=== PATIENT | male | born 1935 | race Caucasian/White ===

== ENCOUNTER 2022-10-23 11:05 | Emergency (ER) | payer MEDICARE, OTHER, SELFPAY ==
[2022-10-23] VITALS (36 sets, daily range): BP systolic 112–146; BP diastolic 53–89; PULSE 109; RESP 24; TEMP 36.6; O2SAT 89–95; BMI 25.0
--- NOTE | 2022-10-23 11:36 | ED_ITS ---
HPI - Weakness General Chief complaint: Weakness Stated complaint: DIARRHEA/WEAKNESS/NAUSEA/RASH ON ABDOMEN Time Seen by Provider: 10/23/22 11:36 Source: patient Mode of arrival: Wheelchair Limitations: no limitations History of Present Illness HPI Narrative: Assessment emergency department complaining of nausea, vomiting, diarrhea. He states he has been sick for about a week. He has not been able to keep anything down. His had 2 bowel movements which are loose stool in the last 24 hours. He's vomited over 7 times. Patient denies any hematemesis, melena, hematochezia. He states he thought he had the flu so he has been taking Pepto-Bismol, and Imodium. He states he has also been feeling generally weak has myalgias and chills cough which is productive of clear sputum and feels short of breath. Patient also states he has developed a red rash over the abdomen. The rash is not related to any of the medications that he has taken as he had the rash before she took any of his medications. Patient states he takes 2 Tylenol extra strength 2 times a day and he has not taking any Tylenol in the last 2 days. 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 He states he has seen a lumber press operator Dr. Casillas 5 yrs ago. Patient denies any chest pain, denies any abdominal pain. He denies any flank pain, hematuria, dysuria. He denies any fall or trauma. He denies any headache. He denies any sore throat or difficulty swallowing. Related Data Home Medications Medication Instructions Recorded Confirmed atorvastatin 20 mg tablet 20 mg PO DAILY 10/23/22 10/23/22 cetirizine 10 mg tablet 10 mg PO DAILY 10/23/22 10/23/22 furosemide 40 mg tablet 40 mg PO DAILY 10/23/22 10/23/22 metoprolol succinate 50 mg 50 mg PO DAILY 10/23/22 10/23/22 tablet,extended release 24 hr rtdnbrky-vbawbtfdh-kyyhmammx 3.5 4 drp otic (ear) QID 10/23/22 10/23/22 mg-10,000 unit/mL-1 % ear drops,susp ondansetron HCl 4 mg tablet 4 mg PO Q8H PRN nausea and vomiting 10/23/22 10/23/22 potassium chloride 10 mEq 10 meq PO DAILY 10/23/22 10/23/22 tablet,extended release Previous Rx's Medication Instructions Recorded hydrocortisone 2.5 % topical 1 applic topical BID PRN rash #20 10/23/22 ointment grams Allergies Allergy/AdvReac Type Severity Reaction Status Date / Time lidocaine AdvReac Unknown Verified 10/23/22 11:46 tramadol [From Ultram] AdvReac Unknown Verified 10/23/22 11:46 novacaine AdvReac Unknown Uncoded 10/23/22 11:46 Review of Systems ROS Status of ROS 10 or more systems reviewed and unremarkable except as noted in history and below [facility] Social History Smoking status: Former smoker Exam Narrative Exam Narrative: Nurses notes and vital signs reviewed and patient is not hypoxic. General: Nontoxic, Elderly, chronically ill, and in no apparent distress. Skin: Warm, dry, Mild pallor noted. Erythematous patches over the anterior abdomen. They're blanching, no central pallor noted. Head: Normocephalic, atraumatic. Neck: Supple, non-tender. Eye: Pupils are equal, round and EOMI. No scleral icterus. Ears, Nose, Mouth, and Throat: TM clear, no posterior oropharynx erythema or nasal mucosal hypertrophy, uvula is mid-line Oral mucosa is dry Cardiovascular: tachycardia without murmur, gallop or rub. Respiratory: No accessory muscle use or respiratory distress. Lungs occasional bilateral rhonchi Chest Wall: no tenderness Back: No midline thoracic or lumbar vertebral tenderness. No CVA tenderness Musculoskeletal: normal ROM, no calf or popliteal tenderness, no lower extremity edema/swelling GI: Abdomen is soft, non-distended. Normal bowel sounds. No tenderness to palpation. No rebound, guarding, or rigidity noted. Neurological: A&O x4. No cranial nerve dysfunction observed. No truncal radha vivian. Moves all extremities. Psychiatric: Cooperative and interactive. Constitutional Vital Signs, click to edit/add: Last Vital Signs Temp 98 F 10/23/22 11:18 Pulse 109 H 10/23/22 11:18 Resp 24 10/23/22 11:18 BP 129/68 10/23/22 16:31 Pulse Ox 93 L 10/23/22 16:31 O2 Del Method Room Air 10/23/22 11:18 Course Vital Signs Vital signs: Vital Signs Blood Pressure 131/89 10/23/22 11:17 Pulse Oximetry 92 L 10/23/22 11:17 Temperature 98 F 10/23/22 11:18 Pulse Rate 109 H 10/23/22 11:18 Respiratory Rate 24 10/23/22 11:18 Blood Pressure 129/68 10/23/22 16:31 Pulse Oximetry 93 L 10/23/22 16:31 Oxygen Delivery Method Room Air 10/23/22 11:18 MDM - Weakness MDM Narrative Medical decision making narrative: Patient was given IV fluids, and Zofran. Labs studies were done. He is not to have leukocytosis with blasts present. Smear was sent for pathology. This corresponds with the patient's CT scan findings of prominent periaortic and mesenteric lymphadenopathy. Patient's magnesium was replaced. The patient's lactic acid improved after IV fluids. Patient felt better he has not vomited during his entire stay and he is not able to have a bowel movement. CT scan showed some enhancement surrounding the extrabiliary duct. This was discussed with Dr. hendricks who advised the patient should be discussed with the lumber press operator for definitive treatment.The patient's old alkaline phosphatase was 300. The patient was discussed with Dr. Julian lumber press operator the count includes the [facility]. He stated that the patient does not need an emergent procedure or ERCP today. Stated that the patient is not having any pain, and he came in for nausea vomiting and diarrhea and dehydration. He advice once we treat that the patient does not need to be hospitalized unless we wanted to just keep him overnight to trend his liver function tests tomorrow. At this time the patient is requesting discharge she feels better and wants to go home. I discussed the patient with his primary care doctor who is on-call and will follow through with the results. I did order a CBC and a CMP to be done tomorrow for a recheck. They will bring the patient back to the emergency department if at any time she develops fever, abdominal pain, uncontrolled vomiting, or if they have any other problems or concerns. Patient will be going home with his and his son who are taking care of him. Patient was also given a hat for a stool sample as he was not able to give was 1 in the emergency department.pt was given the option to be transferred to [facility] to be monitored overnight to have the blood work done there and if there is any abnormalities he is they're already or they will discharge him based on what his labs looked like tomorrow and he feels that his best for him to go home. Patient will be discharged home with a steroid cream for his rash that he is advised that there is a high possibility that we are dealing with a malignancy. The patient has remained hemodynamically stable. No additional indication for emergent studies at this time. I answered all questions. Discussed discharge instructions including standard anticipatory guidance and what should prompt a return to the emergency department, including if they get worse are not getting better or develops any new or concerning symptoms. I've given them specific time frame in which to follow-up, and who to follow-up with. The patient demonstrates understanding. Patient is nontoxic and stable for discharge with outpatient follow-up. This note was created with the assistance of a speech recognition program. Although the intention is to generate documents that actually reflects the content of the visit, no guarantees can be provided that every mistake has been identified and corrected by editing. Differential Diagnosis Differential diagnosis: Likely dehydration Medical Records Attestation: I reviewed the patient's medical records. Lab Data Attestation: I reviewed the patient's lab results. Labs: Lab Results 10/23/22 10/23/22 10/23/22 Range/Units 11:30 15:26 16:43 WBC 19.6 H (4.0-11.0) 10^3/uL RBC 5.26 (4.70-6.10) 10^6/uL Hgb 15.3 (14.0-18.0) g/dL Hct 45.3 (42.0-54.0) % MCV 86.1 (80.0-94.0) fL MCH 29.1 (25.9-34.0) pg MCHC 33.8 (29.9-35.2) g/dL RDW 14.5 (11.0-15.0) % Plt Count 282 (150-450) 10^3/uL MPV 11.1 (9.5-13.5) fL Seg Neuts % (Manual) 71.0 Lymphocytes % (Manual) 10.0 L (20.5-60.0) % Monocytes % (Manual) 10.0 (1.7-12.0) % Eosinophils % (Manual) 5.0 (0.9-7.0) % Basophils % (Manual) 0.0 L (0.2-2.0) % Blast Cells % (Manual) 4.0 Neutrophils # (Manual) 13.91 H (1.4-6.5) 10^3/uL Lymphocytes # (Manual) 1.96 (1.20-3.80) 10^3/uL Monocytes # (Manual) 1.96 H (0.30-0.80) 10^3/uL Eosinophils # (Manual) 0.98 H (0.00-0.70) 10^3/uL Basophils # (Manual) 0.00 (0.00-0.10) 10^3/uL Blast Cells # 0.78 PT (9.0-11.6) sec INR APTT (22.3-36.2) sec Sodium 136 (136-145) mmol/L Potassium 3.5 (3.5-5.1) mmol/L Chloride 98 (98-107) mmol/L Carbon Dioxide 23.6 (21.0-32.0) mmol/L Anion Gap 17.9 BUN 26.0 H (7.0-18.0) mg/dL Creatinine 1.86 H (0.70-1.30) mg/dL Est GFR ( Amer) 42 L (>=60) Est GFR (Non-Af Amer) 35 L (>=60) BUN/Creatinine Ratio 14.0 Glucose 93 (74-106) mg/dL Lactate 2.6 H* 1.3 (0.4-2.0) mmol/L Calcium 9.3 (8.5-10.1) mg/dL Magnesium 1.6 L (1.8-2.4) mg/dL Total Bilirubin 2.4 H (0.2-1.0) mg/dL AST 113 H (15-37) U/L ALT 348 H (16-63) U/L Alkaline Phosphatase 538 H (46-116) U/L Troponin I High Sens 30.2 (4.0-76.1) pg/mL Total Protein 8.1 (6.4-8.2) g/dL Albumin 3.1 L (3.4-5.0) g/dL Globulin 5.0 g/dL Albumin/Globulin Ratio 0.6 Lipase 206.0 (73.0-393.0) U/L Urine Color Dk. yellow (YELLOW) Urine Clarity Clear (CLEAR) Urine pH 5.5 (5.0-9.0) Ur Specific [place] <=1.005 A (1.005-1.025) Urine Protein 100 A (NEG/TRACE) mg/dL Urine Glucose (UA) Negative (NEGATIVE) mg/dL Urine Ketones 15 A (NEGATIVE) mg/dL Urine Occult Blood Small A (NEGATIVE) Urine Nitrite Negative (NEGATIVE) Urine Bilirubin Moderate A (NEGATIVE) Urine Urobilinogen 1.0 (0.2-1.0) EU/dL Ur Leukocyte Esterase Negative (NEGATIVE) Urine RBC 2-5 A (0-2) #/HPF Urine WBC 2-5 A (NONE SEEN) #/HPF Ur Squamous Epith Cells Rare (NONE/RARE) #/LPF Urine Crystals None seen (None Seen) #/HPF Urine Bacteria Trace A (NONE SEEN) #/HPF Urine Casts Seen A (NONE SEEN) #/LPF Hyaline Casts Rare Urine Mucus None seen (NONE SEEN) Ur Culture Indicated? No 10/23/22 Range/Units 18:09 WBC (4.0-11.0) 10^3/uL RBC (4.70-6.10) 10^6/uL Hgb (14.0-18.0) g/dL Hct (42.0-54.0) % MCV (80.0-94.0) fL MCH (25.9-34.0) pg MCHC (29.9-35.2) g/dL RDW (11.0-15.0) % Plt Count (150-450) 10^3/uL MPV (9.5-13.5) fL Seg Neuts % (Manual) Lymphocytes % (Manual) (20.5-60.0) % Monocytes % (Manual) (1.7-12.0) % Eosinophils % (Manual) (0.9-7.0) % Basophils % (Manual) (0.2-2.0) % Blast Cells % (Manual) Neutrophils # (Manual) (1.4-6.5) 10^3/uL Lymphocytes # (Manual) (1.20-3.80) 10^3/uL Monocytes # (Manual) (0.30-0.80) 10^3/uL Eosinophils # (Manual) (0.00-0.70) 10^3/uL Basophils # (Manual) (0.00-0.10) 10^3/uL Blast Cells # PT 13.7 H (9.0-11.6) sec INR 1.31 APTT 32.1 (22.3-36.2) sec Sodium (136-145) mmol/L Potassium (3.5-5.1) mmol/L Chloride (98-107) mmol/L Carbon Dioxide (21.0-32.0) mmol/L Anion Gap BUN (7.0-18.0) mg/dL Creatinine (0.70-1.30) mg/dL Est GFR ( Amer) (>=60) Est GFR (Non-Af Amer) (>=60) BUN/Creatinine Ratio Glucose (74-106) mg/dL Lactate (0.4-2.0) mmol/L Calcium (8.5-10.1) mg/dL Magnesium (1.8-2.4) mg/dL Total Bilirubin (0.2-1.0) mg/dL AST (15-37) U/L ALT (16-63) U/L Alkaline Phosphatase (46-116) U/L Troponin I High Sens (4.0-76.1) pg/mL Total Protein (6.4-8.2) g/dL Albumin (3.4-5.0) g/dL Globulin g/dL Albumin/Globulin Ratio Lipase (73.0-393.0) U/L Urine Color (YELLOW) Urine Clarity (CLEAR) Urine pH (5.0-9.0) Ur Specific [place] (1.005-1.025) Urine Protein (NEG/TRACE) mg/dL Urine Glucose (UA) (NEGATIVE) mg/dL Urine Ketones (NEGATIVE) mg/dL Urine Occult Blood (NEGATIVE) Urine Nitrite (NEGATIVE) Urine Bilirubin (NEGATIVE) Urine Urobilinogen (0.2-1.0) EU/dL Ur Leukocyte Esterase (NEGATIVE) Urine RBC (0-2) #/HPF Urine WBC (NONE SEEN) #/HPF Ur Squamous Epith Cells (NONE/RARE) #/LPF Urine Crystals (None Seen) #/HPF Urine Bacteria (NONE SEEN) #/HPF Urine Casts (NONE SEEN) #/LPF Hyaline Casts Urine Mucus (NONE SEEN) Ur Culture Indicated? Discharge Plan Discharge Chief Complaint: Weakness Clinical Impression: Elevated liver function tests, Dermatitis, Leucocytosis, Nausea & vomiting, Dehydration Patient Disposition: Home, Self-Care Time of Disposition Decision: 18:43 Condition: Good Mode of Transportation: Private Vehicle Prescriptions / Home Meds: New hydrocortisone 2.5 % ointment 1 applic topical BID PRN (Reason: rash) Qty: 20 0RF No Action atorvastatin 20 mg tablet 20 mg PO DAILY cetirizine 10 mg tablet 10 mg PO DAILY furosemide 40 mg tablet 40 mg PO DAILY metoprolol succinate 50 mg tablet extended release 24 hr 50 mg PO DAILY yrnllfxi-vhobyzkvk-EV 3.5-10,000-1 mg/mL-unit/mL-% drops,suspension 4 drp OTIC (EAR) QID ondansetron HCl 4 mg tablet 4 mg PO Q8H PRN (Reason: nausea and vomiting) potassium chloride 10 mEq tablet extended release 10 meq PO DAILY Instructions: Acute Nausea and Vomiting (DC), Acute Diarrhea (ED), Abdominal Pain (ED) Additional Instructions: Return tomorrow to get the lab studies done as an outpatient as discussed. Follow up with Dr. Monty Bautista in the morning. Follow up with Dr. Rhodes lumber press operator as discussed. Return to the emergency department any time for concerns as discussed. Stand Alone Forms: Portal Instructions Referrals: DARREN BAUTISTA [Primary Care Provider] - 1 week Discharge Date/Time: 10/23/22 18:45
[2022-10-23 12:00] LABS: Hematocrit 45.3 % (42.0-54.0); Hemoglobin 15.3 g/dL (14.0-18.0); Mean Corpuscular HGB Conc 33.8 g/dL (29.9-35.2); Mean Corpuscular Hemoglobin 29.1 pg (25.9-34.0); Mean Corpuscular Volume 86.1 fL (80.0-94.0); Mean Platelet Volume 11.1 fL (9.5-13.5); Platelet Count 282 10^3/uL (150-450); Red Blood Count 5.26 10^6/uL (4.70-6.10); Red Cell Distribution Width 14.5 % (11.0-15.0); White Blood Count 19.6 10^3/uL (4.0-11.0)
[2022-10-23] MEDS: 0.9 % SODIUM CHLORIDE 1,000 ML 999 ML IV (12:03)
[2022-10-23 12:19] LABS: Alanine Aminotransferase 348 U/L (16-63); Albumin Globulin Ratio 0.6; Albumin Level 3.1 g/dL (3.4-5.0); Alkaline Phosphatase 538 U/L (46-116); Anion Gap 17.9; Aspartate Amino Transferase 113 U/L (15-37); Bilirubin Total 2.4 mg/dL (0.2-1.0); Calcium 9.3 mg/dL (8.5-10.1); Carbon Dioxide 23.6 mmol/L (21.0-32.0); Chloride 98 mmol/L (98-107); Estimated GFR (African America 42 (>=60); Estimated GFR (Non-African Ame 35 (>=60); Glucose 93 mg/dL (74-106); Magnesium 1.6 mg/dL (1.8-2.4); Potassium 3.5 mmol/L (3.5-5.1); Sodium 136 mmol/L (136-145); Total Protein 8.1 g/dL (6.4-8.2); Troponin I High Sensitivity 30.2 pg/mL (4.0-76.1)
[2022-10-23 12:22] LABS: Lactate/Lactic Acid 2.6 mmol/L (0.4-2.0)
--- NOTE | 2022-10-23 12:25 | US_ITS ---
[facility] [place] [id number] Patient Name: DC LUO MRN: [id number] date: 1935 Sex: M Assigned Patient Location: ER Current Patient Location: ER Accession/Order Number: [id number] Exam Date: 10/23/2022 13:40 Report Date: 10/23/2022 14:31 At the request of: ANGELES QUIGLEY Procedure: US right upper quadrant US right upper quadrant, 10/23/2022 1:40 PM EDT INDICATION:Right upper quadrant pain, vomiting, rash. COMPARISON: Noncontrast CT scan of the abdomen and pelvis 01/08/2019, right upper quadrant ultrasound 11/19/2018 TECHNIQUE: Multi-planar real-time ultrasonography of the upper abdomen (right upper quadrant) using grayscale imaging, supplemented by color, power, and spectral Doppler as needed. FINDINGS: The visualized pancreatic head neck and body are unremarkable. The pancreatic tail is obscured by overlying bowel gas. No pancreatic ductal dilatation. The liver is 14.4 cmwith coarse increased echotexture. Areas of macronodular contour of the liver. No intrahepatic ductal dilatation. Common bile duct 6.0mm The gallbladder has been surgically removed. Negative sonographic Toribio's sign. The main portal vein is antegrade with normal velocity low resistance venous spectral tracing. Right kidney: 11.1 x 6.6 x 5.6 cm. No hydronephrosis. Normal color Doppler to the right kidney. No ascites. US/US right upper quadrant IMPRESSION: 1. No acute findings. 2. Areas of macro nodular contour of the liver can be seen with prior trauma or cirrhosis. Heterogeneous echotexture of the liver. Differential considerations include hepatic steatosis, fibrosis. Electronically authenticated by: MACEY AMADO Date: 10/23/2022 14:31
[2022-10-23 12:35] LABS: Blast Absolute Manual 0.78; Eosinophils Absolute Manual 0.98 10^3/uL (0.00-0.70); Lymphocytes Absolute Manual 1.96 10^3/uL (1.20-3.80); Monocytes Absolute Manual 1.96 10^3/uL (0.30-0.80); Segmented Neut Absolute Manual 13.91 10^3/uL (1.4-6.5)
--- NOTE | 2022-10-23 12:47 | CT_ITS ---
[address] [address] Patient Name: DC LUO MRN: [id number] date: 1935 Sex: M Assigned Patient Location: ER Current Patient Location: ER Accession/Order Number: [id number] Exam Date: 10/23/2022 14:14 Report Date: 10/23/2022 15:00 At the request of: ANGELES QUIGLEY Procedure: CT abdomen pelvis w con EXAM: CT abdomen pelvis w con; [id number] REASON FOR EXAM: abd pain, n/vnd TECHNIQUE: Helical CT images of the abdomen and pelvis were obtained after the administration of IV contrast. Multiplanar reformats were generated at the scanner. Dose reduction technique used: Automated exposure control and/or adjustment of the mA and/or kV according to patient size and/or use of iterative reconstruction technique. COMPARISON: Correlated with same day right upper quadrant ultrasound and CT abdomen/pelvis 01/08/2019. FINDINGS: Visualized Chest: Mild bibasilar atelectasis. Small hiatal hernia containing less than 10% of the stomach. Abdomen: Liver: Within normal limits. Gallbladder: Resected. Bile Ducts: Mild fat stranding and mucosal enhancement surrounding the extra hepatic biliary duct. Mild intrahepatic biliary ductal dilatation. No significant dilatation of the extra hepatic biliary duct. Pancreas: No mass, ductal dilatation, or inflammatory changes. Spleen: There are a few benign granulomatous calcifications present. There are 2 adjacent splenules. Adrenals: No nodules. Kidneys: -No stones or hydronephrosis. -No mass. Vascular: No aortic aneurysm. Lymph Nodes: -Mildly prominent periaortic lymph nodes just caudal to the level of the SMA with the largest measuring up to 15 x 8 mm (series 3 image 57), previously 10 x 5 mm on 01/08/2019. -Mildly prominent right mesenteric lymph nodes are mildly increased in size. For example, right mesenteric lymph node measuring 17 x 8 mm (series 3 image 60), not measurable on the prior exam. -Mildly enlarged aortocaval lymph node measuring 4.2 x 1.1 cm (series 3 image 42), previously 2.8 x 0.6 cm (series 3 image 42, 01/08/2019). Abdominal Wall: Right inguinal hernia repair noted. Pelvis: No mass or adenopathy. Bowel/Peritoneal Cavity/Mesentery: -Moderate colonic diverticulosis without evidence of acute diverticulitis. -No bowel obstruction or significant ileus. -No acute inflammatory changes. -No free air or free fluid. Musculoskeletal: No acute fracture or suspicious osseous lesion. Mild retrolisthesis of L5 on S1. CT/CT abdomen pelvis w con IMPRESSION: 1. Nonspecific mild fat stranding in the kristine hepatis which appears to be centered about the extrahepatic bile duct. Differential includes cholangitis or reactive changes from adjacent process such as duodenitis. 2. Mild upper abdominal predominant adenopathy is new compared with 01/08/2019. This nonspecific and could be reactive versus metastatic or early lymphoproliferative. 3. Mild intrahepatic biliary ductal dilatation could be related to the extrahepatic biliary inflammatory changes though could be within expected limits given the patient's age and postcholecystectomy. Electronically authenticated by: ELBA ROCK Date: 10/23/2022 15:00
[2022-10-23] MEDS: 0.9 % SODIUM CHLORIDE 1,000 ML 1000 ML IV (15:27)
[2022-10-23] MEDS: MAGNESIUM SULFATE IN WATER 2 GM/50 ML PREMIX IV (15:38)
[2022-10-23 15:47] LABS: Lactate/Lactic Acid 1.3 mmol/L (0.4-2.0)
[2022-10-23 17:27] LABS: Bilirubin Urine MODERATE (NEGATIVE); Blood Urine SMALL (NEGATIVE); Clarity Urine CLEAR (CLEAR); Color Urine DK. YELLOW (YELLOW); Glucose Urine UA NEGATIVE (NEGATIVE); Ketones Urine 15 mg/dL (NEGATIVE); Leukocyte Esterase Urine NEGATIVE (NEGATIVE); Nitrite Urine NEGATIVE (NEGATIVE); Protein Urine 100 mg/dL (NEG/TRACE); Specific Gravity Urine <=1.005 (1.005-1.025); pH Urine 5.5 (5.0-9.0)
[2022-10-23 17:28] LABS: Urine Microscopic Indicated YES
[2022-10-23 17:50] LABS: Mucus Urine NONE SEEN (NONE SEEN)
[2022-10-23 17:51] LABS: Bacteria Urine TRACE #/HPF (NONE SEEN); Cast Seen? SEEN #/LPF (NONE SEEN); Crystals Seen? None Seen #/HPF (None Seen); Hyaline Casts Urine RARE; Squamous Epithelial Cell Urine RARE #/LPF (NONE/RARE); Urine Culture Indicated NO
[2022-10-23 18:32] LABS: INR 1.31; Partial Thromboplastin Time 32.1 sec (22.3-36.2); Prothrombin Time 13.7 sec (9.0-11.6)
[2022-10-23 19:03] LABS: Acetaminophen <2.0 ug/mL (10.0-30.0)
[2022-10-25 07:08] LABS: HBsAg Screen Negative (Negative); HCV Ab Non Reactive (Non Reactive); Hep A Ab, IgM Negative (Negative); Hep B Core Ab, IgM Negative (Negative)
== END 2022-10-23 18:45 | disposition home or self-care (01) ==
PROVIDERS: Emergency Provider Emergency Medicine; PCP Internal Medicine
DX: E86.0 Dehydration (principal); R11.2 Nausea with vomiting, unspecified; Z87.891 Personal history of nicotine dependence; R79.89 Other specified abnormal findings of blood chemistry; L30.9 Dermatitis, unspecified; D72.829 Elevated white blood cell count, unspecified
CPT/HCPCS: 36415; 74177; 76705; 80053; 80074; 80329; 81001; 81003; 83605; 83690; 83735; 84484; 85027; 85610; 85730; 87507; 96361; 96374; 99285; Q9966

== ENCOUNTER 2022-10-24 16:05 | Inpatient (IN) | payer MEDICARE, OTHER, SELFPAY ==
[2022-10-24] VITALS (31 sets, daily range): BP systolic 112–141; BP diastolic 64–82; PULSE 101; RESP 18; TEMP 36.9–37.2; O2SAT 88–100; BMI 29.9; BMI 25.3
--- NOTE | 2022-10-24 16:23 | ED.WEAKNESS1 ---
HPI - Weakness General Chief complaint: Weakness Stated complaint: General weakness Time Seen by Provider: 10/24/22 16:23 Source: patient Mode of arrival: ambulance Limitations: no limitations History of Present Illness HPI Narrative: Patient presents to emergency department complaining of weakness. Patient has been treating himself for the flu At home for approximately one week. He states she's had a lot of vomiting and diarrhea, Myalgias, chills, and weakness. pt was seen and evaluated by me yesterday in the emergency department. Patient was given IV fluids, and Zofran. Labs studies were done. He is not to have leukocytosis with blasts present. Smear was sent for pathology. This corresponds with the patient's CT scan findings of prominent periaortic and mesenteric lymphadenopathy. Patient's magnesium was replaced. The patient's lactic acid improved after IV fluids. Patient felt better he has not vomited during his entire stay and he is not able to have a bowel movement. CT scan showed some enhancement surrounding the extrabiliary duct. This was discussed with Dr. Bueno who advised the patient should be discussed with a waterproofer for definitive treatment. The patient's old alkaline phosphatase was 300. There was concern for a partial biliary obstruction secondary to mass? The patient was discussed with Dr. Urbina waterproofer at [facility]. He stated that the patient does not need an emergent procedure or ERCP today. Stated that the patient is not having any pain, and he came in for nausea vomiting and diarrhea and dehydration. He advice once we treat that the patient does not need to be hospitalized unless we wanted to just keep him overnight to trend his liver function tests tomorrow. The patient felt better he did not want to be transferred anywhere and stated that he would go home and will have the testing normal. I discussed this with his primary care doctor was advised to will follow up with the patient tomorrow. She states he has not been able to have a bowel movement yet. He is still feeling nauseated but has not been vomiting however he feels extremely weak to the point where he was not able to come to have the blood work done and EMS had to be called to their house to transport him here for reevaluation. Patient denies any chest pain, or shortness of breath. He denies any abdominal pain. He denies any hematuria, dysuria. He denies any fever, or chills. MD Complaint: Reports generalized weakness Related Data Home Medications Medication Instructions Recorded Confirmed atorvastatin 20 mg tablet 20 mg PO DAILY 10/23/22 10/23/22 cetirizine 10 mg tablet 10 mg PO DAILY 10/23/22 10/23/22 furosemide 40 mg tablet 40 mg PO DAILY 10/23/22 10/23/22 metoprolol succinate 50 mg 50 mg PO DAILY 10/23/22 10/23/22 tablet,extended release 24 hr zegjocjo-djhlfixjd-ozexjzmgp 3.5 4 drp otic (ear) QID 10/23/22 10/23/22 mg-10,000 unit/mL-1 % ear drops,susp ondansetron HCl 4 mg tablet 4 mg PO Q8H PRN nausea and vomiting 10/23/22 10/23/22 potassium chloride 10 mEq 10 meq PO DAILY 10/23/22 10/23/22 tablet,extended release Previous Rx's Medication Instructions Recorded hydrocortisone 2.5 % topical 1 applic topical BID PRN rash #20 10/23/22 ointment grams Allergies Allergy/AdvReac Type Severity Reaction Status Date / Time lidocaine AdvReac Unknown Verified 10/23/22 11:46 tramadol [From Ultram] AdvReac Unknown Verified 10/23/22 11:46 novacaine AdvReac Unknown Uncoded 10/23/22 11:46 Review of Systems ROS Status of ROS 10 or more systems reviewed and unremarkable except as noted in history and below PFSH [facility] Social History Smoking status: Former smoker Exam Narrative Exam Narrative: Nurses notes and vital signs reviewed and patient is not hypoxic. General: Nontoxic,elderly, frail, chronically ill and in no apparent distress. Skin: Warm, dry, mild pallor noted. Head: Normocephalic, atraumatic. Neck: Supple, non-tender. Eye: Pupils are equal, round and EOMI. No scleral icterus. Ears, Nose, Mouth, and Throat: TM clear, no posterior oropharynx erythema or nasal mucosal hypertrophy, uvula is mid-line Oral mucosa is dry Cardiovascular: Regular tachycardia without murmur, gallop or rub. Respiratory: No accessory muscle use or respiratory distress. Lungs occasional bilateral rhonchi Chest Wall: no tenderness Back: No midline thoracic or lumbar vertebral tenderness. No CVA tenderness Musculoskeletal: normal ROM, no calf or popliteal tenderness, no lower extremity edema/swelling GI: Abdomen is soft, non-distended. Normal bowel sounds. No tenderness to palpation. No rebound, guarding, or rigidity noted. Neurological: A&O x4. No cranial nerve dysfunction observed. Moves all extremities. Psychiatric: Cooperative and interactive. Normal mood and affect. Constitutional Vital Signs, click to edit/add: Last Vital Signs Temp 99.0 F 10/24/22 16:07 Pulse 101 H 10/24/22 16:07 Resp 18 10/24/22 16:07 BP 125/77 10/24/22 20:30 Pulse Ox 90 L 10/24/22 20:30 O2 Del Method Room Air 10/24/22 16:07 Course Vital Signs Vital signs: Vital Signs Temperature 99.0 F 10/24/22 16:07 Pulse Rate 101 H 10/24/22 16:07 Respiratory Rate 18 10/24/22 16:07 Blood Pressure 122/76 10/24/22 16:07 Pulse Oximetry 99 10/24/22 16:07 Oxygen Delivery Method Room Air 10/24/22 16:07 Temperature 99.0 F 10/24/22 16:07 Pulse Rate 101 H 10/24/22 16:07 Respiratory Rate 18 10/24/22 16:07 Blood Pressure 125/77 10/24/22 20:30 Pulse Oximetry 90 L 10/24/22 20:30 Oxygen Delivery Method Room Air 10/24/22 16:07 MDM - Weakness MDM Narrative Medical decision making narrative: Patient was given IV fluids, Zofran and started on vancomycin and Zosyn. Patient was kinney cultured yesterday. Studies were repeated. His white count has slightly elevated. His liver function tests however have improved. Because of the conversations ahead yesterday with Dr. Bueno, and Dr. Parry my initial thought is to transfer the patient to [facility] where there are more specialist that can take care of the patient if he deteriorates. The patient is hemodynamically stable. The patient was discussed with Dr. Narayan who advised he prefers that I speak with Dr. Parry 1st prior to accepting the patient. I've discussed today's findings with Dr. Julian whom I discussed the patient with yesterday and he is opinion is that the patient is septic and we need to treat the sepsis. He states the patient does not need a waterproofer at this time. He is not a candidate for any GI procedures Based on This findings.He states the patient does not need a biliary stent as he does not have any signs of biliary obstruction. states all of his chronic findings can be addressed as an outpatient. He states if the patient is too sick to be at [facility] he would recommend that I transfer him to [facility] but he would have to be admitted to the hospitalist. I discussed this again with Dr. Narayan advised based on this open and Dr. parry he does not seem to need to have the patient transferred to [facility] since there is no need to do any procedures. He states if the patient is septic that we can treat the patient for sepsis Here at [facility] and he cannot except the transfer. The patient was discussed with our hospitalist Dr. Castillo who has accepted the patient. The patient is aware that if he deteriorates or decompensates and he were to need specialist or a procedure that we cannot do here he would need to be transferred to another facility and he is agreeable to that. This note was created with the assistance of a speech recognition program. Although the intention is to generate documents that actually reflects the content of the visit, no guarantees can be provided that every mistake has been identified and corrected by editing. Medical Records Attestation: I reviewed the patient's medical records. Lab Data Attestation: I reviewed the patient's lab results. Labs: Lab Results 10/24/22 Range/Units 17:16 WBC 22.1 H (4.0-11.0) 10^3/uL RBC 4.82 (4.70-6.10) 10^6/uL Hgb 13.9 L (14.0-18.0) g/dL Hct 41.2 L (42.0-54.0) % MCV 85.5 (80.0-94.0) fL MCH 28.8 (25.9-34.0) pg MCHC 33.7 (29.9-35.2) g/dL RDW 14.7 (11.0-15.0) % Plt Count 278 (150-450) 10^3/uL MPV 10.4 (9.5-13.5) fL Seg Neuts % (Manual) 80.0 Band Neutrophils % 1.0 (0-5) % Lymphocytes % (Manual) 9.0 L (20.5-60.0) % Monocytes % (Manual) 9.0 (1.7-12.0) % Eosinophils % (Manual) 1.0 (0.9-7.0) % Basophils % (Manual) 0.0 L (0.2-2.0) % Neutrophils # (Manual) 17.68 H (1.4-6.5) 10^3/uL Band Neutrophils # 0.2 (0.0-0.3) 10^3/uL Lymphocytes # (Manual) 1.98 (1.20-3.80) 10^3/uL Monocytes # (Manual) 1.98 H (0.30-0.80) 10^3/uL Eosinophils # (Manual) 0.22 (0.00-0.70) 10^3/uL Basophils # (Manual) 0.00 (0.00-0.10) 10^3/uL ESR 112 H (<=20) mm/hr PT 13.6 H (9.0-11.6) sec INR 1.30 Sodium 135 L (136-145) mmol/L Potassium 3.6 (3.5-5.1) mmol/L Chloride 100 (98-107) mmol/L Carbon Dioxide 23.8 (21.0-32.0) mmol/L Anion Gap 14.8 BUN 25.0 H (7.0-18.0) mg/dL Creatinine 1.51 H (0.70-1.30) mg/dL Est GFR ( Amer) 54 L (>=60) Est GFR (Non-Af Amer) 44 L (>=60) BUN/Creatinine Ratio 16.6 Glucose 98 (74-106) mg/dL Lactate 1.6 (0.4-2.0) mmol/L Calcium 8.7 (8.5-10.1) mg/dL Magnesium 2.0 (1.8-2.4) mg/dL Total Bilirubin 1.5 H (0.2-1.0) mg/dL AST 60 H (15-37) U/L ALT 193 H (16-63) U/L Alkaline Phosphatase 393 H (46-116) U/L Troponin I High Sens 38.9 (4.0-76.1) pg/mL C-Reactive Protein 38.4 H (<=1.0) mg/dL Total Protein 7.5 (6.4-8.2) g/dL Albumin 2.6 L (3.4-5.0) g/dL Globulin 4.9 g/dL Albumin/Globulin Ratio 0.5 Lipase 63.0 L (73.0-393.0) U/L ECG Data Attestation: I personally reviewed and interpreted this ECG as follows: Discharge Plan Discharge Chief Complaint: Weakness Clinical Impression: Elevated liver function tests, Dermatitis, Sepsis, Nausea & vomiting, Dehydration Patient Disposition: Admitted As Inpatient Time of Disposition Decision: 20:00 Condition: Good Prescriptions / Home Meds: No Action atorvastatin 20 mg tablet 20 mg PO DAILY cetirizine 10 mg tablet 10 mg PO DAILY furosemide 40 mg tablet 40 mg PO DAILY metoprolol succinate 50 mg tablet extended release 24 hr 50 mg PO DAILY nyphtvrz-prkajcwro-EU 3.5-10,000-1 mg/mL-unit/mL-% drops,suspension 4 drp OTIC (EAR) QID ondansetron HCl 4 mg tablet 4 mg PO Q8H PRN (Reason: nausea and vomiting) potassium chloride 10 mEq tablet extended release 10 meq PO DAILY hydrocortisone 2.5 % ointment 1 applic topical BID PRN (Reason: rash) Qty: 20 0RF Referrals: DARREN BARAJAS [Primary Care Provider] - 1 week
[2022-10-24 17:31] LABS: Hematocrit 41.2 % (42.0-54.0); Hemoglobin 13.9 g/dL (14.0-18.0); Mean Corpuscular HGB Conc 33.7 g/dL (29.9-35.2); Mean Corpuscular Hemoglobin 28.8 pg (25.9-34.0); Mean Corpuscular Volume 85.5 fL (80.0-94.0); Mean Platelet Volume 10.4 fL (9.5-13.5); Platelet Count 278 10^3/uL (150-450); Red Blood Count 4.82 10^6/uL (4.70-6.10); Red Cell Distribution Width 14.7 % (11.0-15.0); White Blood Count 22.1 10^3/uL (4.0-11.0)
[2022-10-24 17:48] LABS: Prothrombin Time 13.6 sec (9.0-11.6)
[2022-10-24 17:59] LABS: Lactate/Lactic Acid 1.6 mmol/L (0.4-2.0)
[2022-10-24 18:05] LABS: Alanine Aminotransferase 193 U/L (16-63); Albumin Globulin Ratio 0.5; Albumin Level 2.6 g/dL (3.4-5.0); Alkaline Phosphatase 393 U/L (46-116); Anion Gap 14.8; Aspartate Amino Transferase 60 U/L (15-37); BUN Creatinine Ratio 16.6; Bilirubin Total 1.5 mg/dL (0.2-1.0); Calcium 8.7 mg/dL (8.5-10.1); Carbon Dioxide 23.8 mmol/L (21.0-32.0); Chloride 100 mmol/L (98-107); Estimated GFR (African America 54 (>=60); Estimated GFR (Non-African Ame 44 (>=60); Globulin 4.9 g/dL; Glucose 98 mg/dL (74-106); Potassium 3.6 mmol/L (3.5-5.1); Sodium 135 mmol/L (136-145); Total Protein 7.5 g/dL (6.4-8.2); Troponin I High Sensitivity 38.9 pg/mL (4.0-76.1)
[2022-10-24 18:13] LABS: Erythrocyte Sedimentation Rate 112 mm/hr (<=20)
[2022-10-24 18:31] LABS: Band Neutrophils Absolute 0.2 10^3/uL (0.0-0.3); Eosinophils Absolute Manual 0.22 10^3/uL (0.00-0.70); Lymphocytes Absolute Manual 1.98 10^3/uL (1.20-3.80); Monocytes Absolute Manual 1.98 10^3/uL (0.30-0.80); Segmented Neut Absolute Manual 17.68 10^3/uL (1.4-6.5)
[2022-10-24] MEDS: PIPERACILLIN SODIUM/TAZOBACTAM 4.5 GM in 0.9 % SODIUM CHLORIDE 50 ML IV (18:48)
[2022-10-24 19:06] LABS: C Reactive Protein 38.4 mg/dL (<=1.0)
[2022-10-24] MEDS: VANCOMYCIN HCL 1,500 MG in 0.9 % SODIUM CHLORIDE 500 ML 250 MG IV (19:30)
--- NOTE | 2022-10-24 20:00 | XR_ITS ---
The [address] [address] Patient Name: DC LUO MRN: [id number] date: 1935 Sex: M Assigned Patient Location: ER Current Patient Location: ER Accession/Order Number: [id number] Exam Date: 10/24/2022 20:06 Report Date: 10/24/2022 20:37 At the request of: ANGELES QUIGLEY Procedure: XR chest 1V EXAMINATION: XR chest 1V HISTORY: Weakness COMPARISON: Portable chest 01/08/2020 TECHNIQUE: Portable chest FINDINGS: The lung parenchyma is free of consolidation or infiltrate. No pneumothorax or pleural effusion. Status post median sternotomy and valve replacement. The cardiac, mediastinal and hilar contours are normal. The visualized osseous structures exhibit no gross abnormality. XR/XR chest 1V IMPRESSION: No acute cardiopulmonary abnormality. Electronically authenticated by: GARRISON WALDRON Date: 10/24/2022 20:37
--- NOTE | 2022-10-24 22:21 | P.PN_ITS ---
Progress Note: Subjective Subjective Interval history: The patient is an 87-year-old male with a history of hypertension and dyslipidemia, who was in his usual state of health until about a week ago when he started having intractable diarrhea and vomiting. 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 He denies taking any antibiotics or any recent hospitalization. He denies that his had C. difficile. He came to the ED yesterday and he was noted to have elevated LFTs. He underwent an ultrasound which showed cirrhosis and a follow-up CT scan showed some enhancement around the biliary duct. The ED doctor spoke to surgery who thought that the patient may need transfer to [facility] and therefore the ED doctor spoke to GI doctor there but he suggested keeping him here and giving him IV fluids. Despite all of these efforts, the patient was feeling better after a liter of IV fluids and was discharged home. Today, he became weaker and he came back to the ED. The ED doctor called [facility] again and spoke to the hospitalist as well as the GI doctor and they felt that he has sepsis and needed to be treated at this facility. They did not feel that there were any interventions that would be undertaken at this time. He did show some improvement in his LFTs but his white count increased to 22.1. The patient apparently has had a diffuse pruritic rash since Thursday. His last bowel movement was on Thursday. He was given Zosyn and vancomycin in the ED. He is being admitted for further evaluation. Exam Narrative Exam Narrative: General : Alert and oriented x3 HEENT : Extraocular movements intact, pupils equal round and reactive to light and accommodation Neck: Supple, no JVD Chest: Clear to auscultation bilaterally, no wheezes Heart: Regular rate and rhythm, S1 and S2 heard Abdomen: Soft nontender nondistended. Extremities: No clubbing cyanosis or edema Neurologically: Moving all 4 extremities Skin: Diffuse rash throughout the entire body Constitutional Vital Signs, click to edit/add: Last Vital Signs Temp 98.5 F 10/24/22 20:59 Pulse 101 H 10/24/22 20:59 Resp 18 10/24/22 20:59 BP 141/72 10/24/22 20:59 Pulse Ox 90 L 10/24/22 20:59 O2 Del Method Room Air 10/24/22 20:59 Progress Note: Objective Labs Labs: Short CBC 10/24/22 Range/Units 17:16 WBC 22.1 H (4.0-11.0) 10^3/uL Hgb 13.9 L (14.0-18.0) g/dL Hct 41.2 L (42.0-54.0) % Plt Count 278 (150-450) 10^3/uL BMP 10/24/22 17:16 Sodium 135 L Potassium 3.6 Chloride 100 Carbon Dioxide 23.8 BUN 25.0 H Creatinine 1.51 H Glucose 98 Calcium 8.7 Liver Function 10/24/22 Range/Units 17:16 Total Bilirubin 1.5 H (0.2-1.0) mg/dL AST 60 H (15-37) U/L ALT 193 H (16-63) U/L Alkaline Phosphatase 393 H (46-116) U/L Albumin 2.6 L (3.4-5.0) g/dL Progress Note: A&P Assessment and Plan (1) Elevated liver function tests: (2) Dermatitis: (3) Leucocytosis: (4) Nausea & vomiting: (5) Dehydration: (6) Sepsis: Plan The patient is an 87-year-old male with above medical problems, presenting with sepsis and elevated LFTs. Possible sepsis -Unclear source -Awaiting for stool sample to check for C. difficile -Remains on empiric antibiotics with Zosyn and vancomycin -Certainly could be viral etiology given liver function abnormalities, GI complaints as well as rash. -Gentle IV fluids -Hold Lasix Elevated LFTs -CT shows cirrhosis and some biliary duct enhancement. There is also some lymphadenopathy. CBC shows blasts, could be from viral etiology and will need follow-up as an outpatient pending symptomatology -Continue hydration -Hold statin -Monitor LFTs Generalized rash -Benadryl IV as needed -Patient denies using any recent new soaps, detergents, close or insect bites DVT Prophylaxis -Lovenox, SCDs Medication review -Medication reconciliation form completed Goals of care -Full code Communications -Discussed with the emergency room physician -Discussed with the bedside nurse -Patient and son updated of plan of care, all questions answered to their satisfaction Disposition -Home when medically stable Telemedicine clause -As the provider of this telehealth evaluation, requested by the patient's evaluating physician, I attest that I introduced myself to the patient, provided my credentials and determined that telemedicine via a real-time, two-way interactive audio and video platform is an appropriate and effective means of providing this service. -I reviewed the patient's chart and had a discussion with the member of the patient's treatment team. -The patient and I mutually agreed with continuation of this evaluation via telemedicine. The patient consented for the telemedicine evaluation. -This virtual encounter was taken place from [place], [place]. The encounter was approximately 35 minutes. The nurse was present during the entire time of the encounter and was able to remove the stethoscope and appropriate di rections. The patient was evaluated at [facility] Telemedicine Attestation Telemedicine Attestation I conducted this encounter from [] via secure live, [id number] video conference with the patient, located at [facility] with []. Prior to the interview, the risks and benefits of telemedicine were discussed with the patient and verbal consent was obtained.
[2022-10-24 22:59] LABS: Alanine Aminotransferase 165 U/L (16-63); Albumin Globulin Ratio 0.5; Albumin Level 2.3 g/dL (3.4-5.0); Alkaline Phosphatase 341 U/L (46-116); Anion Gap 13.9; Aspartate Amino Transferase 51 U/L (15-37); BUN Creatinine Ratio 14.1; Bilirubin Total 1.6 mg/dL (0.2-1.0); Calcium 7.9 mg/dL (8.5-10.1); Carbon Dioxide 26.5 mmol/L (21.0-32.0); Chloride 104 mmol/L (98-107); Estimated GFR (African America 52 (>=60); Estimated GFR (Non-African Ame 43 (>=60); Globulin 4.5 g/dL; Glucose 107 mg/dL (74-106); Potassium 3.4 mmol/L (3.5-5.1); Sodium 141 mmol/L (136-145); Total Protein 6.8 g/dL (6.4-8.2)
[2022-10-24] MEDS: LACTATED RINGER'S SOLUTION 1,000 ML 75 ML IV (23:05)
[2022-10-24] MEDS: ZOLPIDEM TARTRATE 10 MG TABLET PO (23:05)
[2022-10-24] MEDS: BISACODYL 10 MG RECTAL SUPPOSITORY PR (23:06)
--- NOTE | 2022-10-24 23:10 | RESP.RT ---
No PRN breathing tx given. Pt resting. No respiratory distress noted.
--- NOTE | 2022-10-24 23:11 | RESP.RT ---
Spo2 88% on Room Air. Placed pt on 2L nasal cannula and Sp02 increased to 92%.
--- NOTE | 2022-10-24 23:17 | RESP.RT ---
No PRN breathing tx given. Pt resting. No respiratory distress noted.
[2022-10-25] VITALS (9 sets, daily range): BP systolic 111–130; BP diastolic 53–77; PULSE 81–106; RESP 18–22; TEMP 36.3–38.3; O2SAT 88–94
[2022-10-25] MEDS: PIPERACILLIN SODIUM/TAZOBACTAM 3.375 GM in 0.9 % SODIUM CHLORIDE 50 ML IV ×3 (02:15→18:14)
[2022-10-25 05:47] LABS: Hematocrit 37.4 % (42.0-54.0); Hemoglobin 12.6 g/dL (14.0-18.0); Mean Corpuscular HGB Conc 33.7 g/dL (29.9-35.2); Mean Corpuscular Hemoglobin 28.9 pg (25.9-34.0); Mean Corpuscular Volume 85.8 fL (80.0-94.0); Mean Platelet Volume 11.2 fL (9.5-13.5); Platelet Count 241 10^3/uL (150-450); Red Blood Count 4.36 10^6/uL (4.70-6.10); Red Cell Distribution Width 14.7 % (11.0-15.0); White Blood Count 19.8 10^3/uL (4.0-11.0)
[2022-10-25 06:00] LABS: Alanine Aminotransferase 133 U/L (16-63); Albumin Globulin Ratio 0.5; Alkaline Phosphatase 298 U/L (46-116); Anion Gap 15.2; Aspartate Amino Transferase 54 U/L (15-37); Bilirubin Total 1.4 mg/dL (0.2-1.0); Calcium 7.9 mg/dL (8.5-10.1); Chloride 102 mmol/L (98-107); Estimated GFR (African America 58 (>=60); Estimated GFR (Non-African Ame 48 (>=60); Globulin 4.2 g/dL; Glucose 101 mg/dL (74-106); Potassium 3.2 mmol/L (3.5-5.1); Sodium 136 mmol/L (136-145); Total Protein 6.2 g/dL (6.4-8.2)
[2022-10-25 07:48] LABS: Lymphocytes Absolute Manual 0.19 10^3/uL (1.20-3.80); Segmented Neut Absolute Manual 15.44 10^3/uL (1.4-6.5)
[2022-10-25 07:49] LABS: Blast Absolute Manual 0.99; Eosinophils Absolute Manual 1.18 10^3/uL (0.00-0.70); Monocytes Absolute Manual 0.59 10^3/uL (0.30-0.80)
[2022-10-25] MEDS: BENZOCAINE/MENTHOL 1 EACH LOZENGE 1 LOZENGE PO (08:54)
[2022-10-25] MEDS: POTASSIUM CHLORIDE 10 MEQ ER TABLET 20 MEQ PO ×2 (08:54→21:39)
[2022-10-25] MEDS: METOPROLOL SUCCINATE 50 MG TAB.ER.24H PO (08:54)
[2022-10-25] MEDS: MONTELUKAST SODIUM 10 MG TABLET PO (08:54)
[2022-10-25] MEDS: ENOXAPARIN SODIUM 40 MG/0.4 ML SYRINGE SUBQ (08:54)
[2022-10-25] MEDS: TAMSULOSIN HCL 0.4 MG CAPSULE PO (08:54)
[2022-10-25] MEDS: CETIRIZINE HCL 10 MG TABLET PO (08:55)
[2022-10-25] MEDS: OMEPRAZOLE 40 MG CAPSULE.DR PO (08:55)
[2022-10-25] MEDS: LACTATED RINGER'S SOLUTION 1,000 ML 75 ML IV (12:11)
--- NOTE | 2022-10-25 13:00 | MR_ITS ---
The [address] [address] Patient Name: DC LUO MRN: [id number] date: 1935 Sex: M Assigned Patient Location: MS Current Patient Location: MS Accession/Order Number: [id number] Exam Date: 10/25/2022 13:00 Report Date: 10/25/2022 13:59 At the request of: SHAIKH MARU Procedure: MR abdomen wo con EXAM: MR abdomen wo con CLINICAL INFORMATION: 87 years Male. Abnormal Liver enzymes TECHNIQUE: Multiple coronal and two 15 degree coronal oblique single shot heavily T2 weighted images. Coronal heavily weighted 3D T2 weighted images. Axial in and out of phase, axial diffusion, axial T2 and thin section axial T2 weighted images of the pancreas. Axial T1 gradient echo images before gadolinium administration. COMPARISON: CT of the abdomen and pelvis from 10/23/2022 FINDINGS: The study is severely degraded due to motion artifact and limited evaluation of the intra-abdominal organs. LIVER: Normal signal intensity. No hepatic steatosis. No significant intrahepatic biliary dilation. GALLBLADDER: Status post cholecystectomy. COMMON BILE DUCT: Normal. PANCREAS: Normal signal intensity. No evidence of stranding or increased T2 signal surrounding the pancreas.. No pancreatic ductal dilation. OTHER: Spleen, adrenal glands, and kidneys are unremarkable. Visualized bowel demonstrates no evidence of obstruction or inflammation. Small hiatal hernia. No lymphadenopathy. Vascular structures are unremarkable. Normal bone marrow signal intensity. MR/MR abdomen wo con IMPRESSION: The study is severely degraded due to motion artifact and limited evaluation of the intra-abdominal organs. However, no significant intra or extrahepatic biliary ductal dilatation or suspicious acute finding is noted. Repeated the study if clinically warranted. Electronically authenticated by: LINDSAY RACHEL Date: 10/25/2022 13:59
[2022-10-25] MEDS: OXYCODONE HCL 5 MG TABLET PO (14:18)
[2022-10-25] MEDS: PREDNISONE 20 MG TABLET 40 MG PO (14:19)
[2022-10-25] MEDS: NEOMYCIN/POLYMYXIN B/HYDROCORTISONE OTIC SUSP 200 DROP/10 ML BOTTLE OT ×3 (14:19→22:48)
[2022-10-25] MEDS: HYDROCORTISONE 1% CREAM 28 GRAM TUBE 1 APPLIC TOPICAL ×2 (15:17→21:40)
--- NOTE | 2022-10-25 16:34 | P.HP_ITS ---
H&P: HPI History of Present Illness Chief complaint: General weakness Sepsis NVD Elerated LFT's Narrative: 87 y o male presents with one week hx of poor PO intake, nausea, 2-3 episodes of vomiting/day along with 2-3 episodes of watery diarrhea/day. His diarrhea has resolved but he continues to have poor PO intake and loss of appetite along with nausea. Patient also reports feeling extremely weak, tired and needing two person assist to even get up and sit on his bed. This is a significant worsening from his baseline functional status - ambulate independently and uses cane only for balance. 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 Patient also report developing a pruritic, erythematous rash that started last and involves all of his body except for face. Denies new medications/personal hygiene products. Last night he came back again complaining of severe weakness, loss of appetite and nausea and was admitted overnight for further care. This morning when I evaluated him - patient denied feeling nauseous and did not have a single episode of vomiting overnight. He appeared dehydrated, lethargic and sick appearing on exam. He reports anorexia but denied abdominal pain, urinary complaints to me. Review of Systems ROS Status of ROS 10 or more systems reviewed and unremarkable except as noted in history and below [facility] Medical History (Updated 10/25/22 @ 22:36 by Shaikh Jessica MD) Surgical History (Updated 10/25/22 @ 22:12 by Shaikh Jessica MD) Family History Mother Family history of CHF (congestive heart failure) Family history of hypertension Family history of myocardial infarction Father Family history of cancer Sister Family history of cancer Social History Within the past year, how often did you have a drink containing alcohol: never Score interpretation: A score less than 4 is consistent with normal alcohol consumption. Smoking status: Former smoker Non-prescribed substance use: denies use Previous occupational history: retired Highest level of school completed/degree received: Associate degree: occupational, technical, vocational program Are you now , , , , never or living with a partner: In a typical week, how many times do you talk on the telephone with family, friends, or neighbors: 3 or more times per week How often do you get together with friends or relatives: 3 or more times per week How often do you attend confucianist or zoroastrianism services: 4 or more times per year Little interest or pleasure in doing things: not at all Feeling down, depressed, or hopeless: not at all Feel stressed/tense/nervous/anxious/difficulty sleeping: not at all Do you think of yourself as: straight/heterosexual Gender Identity: male Meds Home Medications and Allergies Home Medications Medication Instructions Recorded Confirmed Type atorvastatin 20 mg tablet 40 mg PO DAILY 10/23/22 10/24/22 History cetirizine 10 mg tablet 10 mg PO DAILY 10/23/22 10/24/22 History furosemide 40 mg tablet 40 mg PO DAILY 10/23/22 10/24/22 History hydrocortisone 2.5 % topical 1 applic topical BID PRN rash #20 10/23/22 10/24/22 Rx ointment grams metoprolol succinate 50 mg 50 mg PO DAILY 10/23/22 10/24/22 History tablet,extended release 24 hr halkdwfk-[id number]-[id number] 3.5 4 drp otic (ear) Q6H 10/23/22 10/24/22 History mg-10,000 unit/mL-1 % ear drops,susp potassium chloride 10 mEq 20 meq PO BID 10/23/22 10/24/22 History tablet,extended release acetaminophen 325 mg tablet (Aphen) 650 mg PO Q6H PRN fever or pain 10/24/22 10/24/22 History diazepam 5 mg tablet 5 mg PO Q8H PRN anxiety 10/24/22 10/24/22 History diphenhydramine HCl 25 mg capsule 25 mg PO DAILY 10/24/22 10/24/22 History (Benadryl) montelukast 10 mg tablet 10 mg PO DAILY 10/24/22 10/24/22 History pantoprazole 40 mg tablet,delayed 40 mg PO DAILY 10/24/22 10/24/22 History release tamsulosin 0.4 mg capsule 0.4 mg PO Q24H 10/24/22 10/24/22 History zolpidem 10 mg tablet 10 mg PO .hs 10/24/22 10/24/22 History Allergies Allergy/AdvReac Type Severity Reaction Status Date / Time lidocaine AdvReac Unknown Verified 10/23/22 11:46 tramadol [From Ultram] AdvReac Unknown Verified 10/23/22 11:46 novacaine AdvReac Unknown Uncoded 10/23/22 11:46 Exam Constitutional Vital Signs, click to edit/add: Last Vital Signs Temp 98.2 F 10/25/22 14:00 Pulse 106 H 10/25/22 14:00 Resp 20 10/25/22 14:00 BP 130/71 10/25/22 14:00 Pulse Ox 93 L 10/25/22 14:00 O2 Del Method Room Air 10/25/22 14:00 O2 Flow Rate 2 10/25/22 06:00 Documenting provider has reviewed patient's vital signs: yes Common normals: no apparent distress and oriented x3 General appearance: lethargic and ill appearing HENMT Common normals: normocephalic and head/scalp atraumatic Head and scalp: normocephalic and atraumatic Eye Common normals: PERRL and EOMs intact bilaterally Respiratory Common normals: normal respiratory effort, no use of accessory muscles and clear to auscultation bilaterally Effort & inspection: able to speak in complete sentences Auscultation: clear to auscultation bilaterally Cardio Common normals: regular rate, regular rhythm, S1 normal heart sound and S2 normal heart sound Rate: regular rate Rhythm: regular rhythm Heart sounds: S1 normal and S2 normal GI Common normals: Normal to inspection, nondistended, normoactive bowel sounds present, soft to palpation, non-tender and no hepatosplenomegaly Palpation: soft and no hepatosplenomegaly Extremity Common normals: no clubbing, cyanosis or edema Neuro Common normals: oriented x3, moves all extremities, no focal motor deficits and no sensory deficits noted Psych Common normals: mental status grossly normal, thought process normal, denies hallucinations, denies homicidal ideation and denies suicidal ideation Thought process: normal thought process Results Labs Labs: Short CBC 10/24/22 10/25/22 Range/Units 17:16 05:06 WBC 22.1 H 19.8 H (4.0-11.0) 10^3/uL Hgb 13.9 L 12.6 L (14.0-18.0) g/dL Hct 41.2 L 37.4 L (42.0-54.0) % Plt Count 278 241 (150-450) 10^3/uL BMP 10/24/22 10/24/22 10/25/22 17:16 22:30 05:06 Sodium 135 L 141 136 Potassium 3.6 3.4 L 3.2 L Chloride 100 104 102 Carbon Dioxide 23.8 26.5 22.0 BUN 25.0 H 22.0 H 21.0 H Creatinine 1.51 H 1.56 H 1.40 H Glucose 98 107 H 101 Calcium 8.7 7.9 L 7.9 L Liver Function 10/24/22 10/24/22 10/25/22 Range/Units 17:16 22:30 05:06 Total Bilirubin 1.5 H 1.6 H 1.4 H (0.2-1.0) mg/dL AST 60 H 51 H 54 H (15-37) U/L ALT 193 H 165 H 133 H (16-63) U/L Alkaline Phosphatase 393 H 341 H 298 H (46-116) U/L Albumin 2.6 L 2.3 L 2.0 L (3.4-5.0) g/dL Assessment and Plan Assessment and Plan (1) Sepsis: Assessment and Plan: HR > 100, WBC > 20 K - possible ascending cholangitis. Prior hx of cholecystectomy Still tachycardic, appears dry on clinical exam. On IVF at 125 ml/hr. Monitor I/O, closely monitor. CT abd shows possible cholangitis for which an MRCP was ordered - no intra/extra hepatic ductal dilatation but severe motion artifact. There is also a possibility of underlying lymphoproliferative disorder as worsening intra abdominal lymphadenopathy noted on CT Abd when compared from prior CT scan but this could be due to an infectious etiology too. Radiologist also noted possibility of pancreatico biliary tree malignancy and this could result in cholangitis in the presence of an obstruction. Will treat with IV zosyn for now for presumed cholangitis and monitor for clinical improvement. May need to repeat MRCP and/or GI consultation if he worsens clinically. (2) Elevated liver function tests: Assessment and Plan: Negative hepatitis panel. Suspect cholangitis and being treated for it with IV Zosyn. Possibility of pancreatico biliary tree malignancy is also on the differential. C/w IVF. Monitor liver functions daily. Avoid tylenol/statins. Lipitor is on hold (3) ROBERTO (acute kidney injury): Assessment and Plan: Normal renal function at baseline. Monitor Cr and UO. C/w IVF. (4) Diarrhea: Assessment and Plan: Presumed infectious. Resolved since admission. GI panel is pending. Qualifiers: Diarrhea type: presumed infectious Qualified Code(s): R19.7 - Diarrhea, unspecified (5) Nausea & vomiting: Assessment and Plan: P/w nausea, vomiting, decreased PO intake x 7 day. He also had diarrhea but it has resolved now. His nausea is better. Tolerating PO diet. However, still quite dry on clinical exam and has poor appetite and poor PO intake as a result. Qualifiers: Vomiting type: unspecified Qualified Code(s): R11.2 - Nausea with vomiting, unspecified (6) Dehydration: Assessment and Plan: due to nausea, vomiting and diarrhea along with poor PO intake. C/w IV fluids. Encouraged PO intake. (7) Urticarial rash: Assessment and Plan: Likely an allergic reaction. Pruritic rash with wheel and flare involving all of his body, just sparing his face. No new medication, personal hygiene product. Similar episode happened a few years ago and resolved with oral antihistamines. Started on PO prednisone and topical hydrocortisone. He is already on oral cetirizine. Unable to identify any drug that would be implicated and for now, will c/w current home meds and IV Zosyn as rash preceded use of Zosyn. (8) Intra-abdominal lymphadenopathy: Assessment and Plan: Could be sec to lymphoproliferative disorder vs reactive due to intra abdominal infection vs pancreatico biliary malignancy. He is being treated for cholangitis with IV Zosyn. Will need f.u CT abd/pelvis as outpatient vs Hemonc evaluation once acute illness resolves. (9) Liver cirrhosis, alcoholic: Assessment and Plan: Possible Liver cirrhosis on Liver US. Likely old and previously undiagnosed. Suspect sec to alcohol use as patient used to drink excessively in the past. Will need outpatient GI eval (10) CAD (coronary artery disease): Assessment and Plan: s/p CABG and later on PCI. On ASA. Hold statin. C/w Toprol (11) HTN (hypertension): Assessment and Plan: BP is stable. C/w Toprol. 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 (13) HLD (hyperlipidemia): Assessment and Plan: Lipitor on hold due to abnormal LFTs.
[2022-10-25 17:26] LABS: Glucometer 92 mg/dL (74-106)
[2022-10-25 18:37] LABS: SARS-CoV-2 Ag NEGATIVE (NEGATIVE)
--- NOTE | 2022-10-25 19:20 | RESP.RT ---
No PRN breathing tx given. Pt sleeping. No respiratory distress noted.
[2022-10-25] MEDS: LACTATED RINGER'S SOLUTION 1,000 ML 125 ML IV (21:37)
[2022-10-25] MEDS: ZOLPIDEM TARTRATE 10 MG TABLET 5 MG PO (21:39)
[2022-10-26] VITALS (7 sets, daily range): BP systolic 125–130; BP diastolic 66–80; PULSE 18–93; RESP 18; TEMP 36.4; O2SAT 91–96
[2022-10-26] MEDS: PIPERACILLIN SODIUM/TAZOBACTAM 3.375 GM in 0.9 % SODIUM CHLORIDE 50 ML IV ×3 (03:25→18:08)
[2022-10-26 05:07] LABS: Hemoglobin 13.1 g/dL (14.0-18.0); Mean Corpuscular HGB Conc 33.6 g/dL (29.9-35.2); Mean Corpuscular Hemoglobin 28.9 pg (25.9-34.0); Mean Corpuscular Volume 86.1 fL (80.0-94.0); Mean Platelet Volume 11.3 fL (9.5-13.5); Platelet Count 240 10^3/uL (150-450); Red Blood Count 4.53 10^6/uL (4.70-6.10); Red Cell Distribution Width 15.4 % (11.0-15.0); White Blood Count 20.8 10^3/uL (4.0-11.0)
[2022-10-26 05:39] LABS: Alanine Aminotransferase 114 U/L (16-63); Albumin Globulin Ratio 0.4; Alkaline Phosphatase 279 U/L (46-116); Anion Gap 14.3; Aspartate Amino Transferase 50 U/L (15-37); BUN Creatinine Ratio 15.5; Carbon Dioxide 25.7 mmol/L (21.0-32.0); Chloride 105 mmol/L (98-107); Estimated GFR (African America 52 (>=60); Estimated GFR (Non-African Ame 43 (>=60); Globulin 5.1 g/dL; Glucose 146 mg/dL (74-106); Sodium 141 mmol/L (136-145); Total Protein 7.1 g/dL (6.4-8.2)
[2022-10-26] MEDS: LACTATED RINGER'S SOLUTION 1,000 ML 125 ML IV ×2 (05:49→13:50)
[2022-10-26] MEDS: NEOMYCIN/POLYMYXIN B/HYDROCORTISONE OTIC SUSP 200 DROP/10 ML BOTTLE OT ×4 (05:50→22:50)
[2022-10-26 06:35] LABS: Lymphocytes Absolute Manual 2.49 10^3/uL (1.20-3.80); Monocytes Absolute Manual 0.41 10^3/uL (0.30-0.80); Segmented Neut Absolute Manual 17.88 10^3/uL (1.4-6.5)
--- NOTE | 2022-10-26 10:13 | PM.PN ---
Progress Note: Subjective Subjective Interval history: The patient is an 87-year-old male with a history of hypertension and dyslipidemia, who was in his usual state of health until about a week ago when he started having intractable diarrhea and vomiting. 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 He denies taking any antibiotics or any recent hospitalization. He denies that his had C. difficile. He came to the ED yesterday and he was noted to have elevated LFTs. He underwent an ultrasound which showed cirrhosis and a follow-up CT scan showed some enhancement around the biliary duct. The ED doctor spoke to surgery who thought that the patient may need transfer to [facility] and therefore the ED doctor spoke to GI doctor there but he suggested keeping him here and giving him IV fluids. Despite all of these efforts, the patient was feeling better after a liter of IV fluids and was discharged home. Today, he became weaker and he came back to the ED. The ED doctor called [facility] again and spoke to the hospitalist as well as the GI doctor and they felt that he has sepsis and needed to be treated at this facility. They did not feel that there were any interventions that would be undertaken at this time. He did show some improvement in his LFTs but his white count increased to 22.1. The patient apparently has had a diffuse pruritic rash since Thursday. His last bowel movement was on Thursday. He was given Zosyn and vancomycin in the ED. He is being admitted for further evaluation. Exam Constitutional Vital Signs, click to edit/add: Last Vital Signs Temp 97.6 F 10/26/22 06:00 Pulse 80 10/26/22 07:27 Resp 18 10/26/22 06:00 BP 125/80 10/26/22 06:00 Pulse Ox 94 L 10/26/22 06:00 O2 Del Method Nasal Cannula 10/26/22 06:00 O2 Flow Rate 2 10/26/22 06:00 Progress Note: Objective Labs Labs: Short CBC 10/26/22 Range/Units 04:28 WBC 20.8 H (4.0-11.0) 10^3/uL Hgb 13.1 L (14.0-18.0) g/dL Hct 39.0 L (42.0-54.0) % Plt Count 240 (150-450) 10^3/uL BMP 10/26/22 04:28 Sodium 141 Potassium 4.0 Chloride 105 Carbon Dioxide 25.7 BUN 24.0 H Creatinine 1.55 H Glucose 146 H Calcium 8.0 L Liver Function 10/26/22 Range/Units 04:28 Total Bilirubin 1.0 (0.2-1.0) mg/dL AST 50 H (15-37) U/L ALT 114 H (16-63) U/L Alkaline Phosphatase 279 H (46-116) U/L Albumin 2.0 L (3.4-5.0) g/dL Progress Note: A&P Assessment and Plan (1) Sepsis: (2) Elevated liver function tests: (3) ROBERTO (acute kidney injury): (4) Diarrhea: Qualifiers: Diarrhea type: presumed infectious Qualified Code(s): R19.7 - Diarrhea, unspecified (5) Nausea & vomiting: Qualifiers: Vomiting type: unspecified Qualified Code(s): R11.2 - Nausea with vomiting, unspecified (6) Dehydration: (7) Urticarial rash: (8) Intra-abdominal lymphadenopathy: (9) Liver cirrhosis, alcoholic: (10) CAD (coronary artery disease): (11) HTN (hypertension): (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
[2022-10-26] MEDS: ENOXAPARIN SODIUM 40 MG/0.4 ML SYRINGE SUBQ (10:30)
[2022-10-26] MEDS: DIPHENHYDRAMINE HCL 50 MG/ML (1ML) VIAL 12.5 MG IV (10:30)
[2022-10-26] MEDS: CETIRIZINE HCL 10 MG TABLET PO (10:31)
[2022-10-26] MEDS: PREDNISONE 20 MG TABLET 40 MG PO (10:31)
[2022-10-26] MEDS: POTASSIUM CHLORIDE 10 MEQ ER TABLET 20 MEQ PO ×2 (10:31→22:48)
[2022-10-26] MEDS: METOPROLOL SUCCINATE 50 MG TAB.ER.24H PO (10:31)
[2022-10-26] MEDS: MONTELUKAST SODIUM 10 MG TABLET PO (10:32)
[2022-10-26] MEDS: OMEPRAZOLE 40 MG CAPSULE.DR PO (10:32)
[2022-10-26] MEDS: HYDROCORTISONE 1% CREAM 28 GRAM TUBE 1 APPLIC TOPICAL ×2 (10:32→22:50)
[2022-10-26] MEDS: TAMSULOSIN HCL 0.4 MG CAPSULE PO (10:32)
[2022-10-26 11:47] LABS: Adenovirus F 40/41 NOT DETECTED (NOT DETECTE); Astrovirus NOT DETECTED (NOT DETECTE); Campylobacter NOT DETECTED (NOT DETECTE); Cryptosporidium NOT DETECTED (NOT DETECTE); Cyclospora cayetanensis NOT DETECTED (NOT DETECTE); Entamoeba histolytica NOT DETECTED (NOT DETECTE); Enteroaggregative E.coli NOT DETECTED (NOT DETECTE); Enteropathogenic E.coli NOT DETECTED (NOT DETECTE); Enterotoxigenic E. coli NOT DETECTED (NOT DETECTE); Giardia lamblia NOT DETECTED (NOT DETECTE); Norovirus GI/GII NOT DETECTED (NOT DETECTE); Plesiomonas shigelloides NOT DETECTED (NOT DETECTE); Rotavirus A NOT DETECTED (NOT DETECTE); Salmonella NOT DETECTED (NOT DETECTE); Sapovirus NOT DETECTED (NOT DETECTE); Shiga-like toxin-producing E.C NOT DETECTED (NOT DETECTE); Shigella/Enteroinvasive E.coli NOT DETECTED (NOT DETECTE); Vibrio NOT DETECTED (NOT DETECTE); Vibrio cholerae NOT DETECTED (NOT DETECTE); Yersinia enterocolitica NOT DETECTED (NOT DETECTE)
--- NOTE | 2022-10-26 12:49 | PM.DS1 ---
DS: Providers Provider Date of admission: 10/24/22 20:50 Primary care physician: DARREN BARAJAS Consults: 10/24/22 21:59 Physical Therapy Eval and Treat Routine Reason for consultation: weakness 10/25/22 09:20 Occupational Therapy Eval and Treat Routine Reason for consultation: rossy 10/25/22 12:45 Occupational Therapy Eval and Treat Routine Reason for consultation: [email or web address] Physical Therapy Eval and Treat Routine Reason for consultation: rossy 10/26/22 09:58 Consult to General Surgeon Routine Consulting Provider: Vimal Bueno Reason for consultation: RUQ pain, Elevated LFT, Leukocytosis Has provider been notified: Yes DS: Diagnosis Discharge Diagnosis (1) Sepsis: (2) Elevated liver function tests: (3) ROBERTO (acute kidney injury): (4) Diarrhea: Qualifiers: Diarrhea type: presumed infectious Qualified Code(s): R19.7 - Diarrhea, unspecified (5) Nausea & vomiting: Qualifiers: Vomiting type: unspecified Qualified Code(s): R11.2 - Nausea with vomiting, unspecified (6) Dehydration: (7) Urticarial rash: (8) Intra-abdominal lymphadenopathy: (9) Liver cirrhosis, alcoholic: (10) CAD (coronary artery disease): (11) HTN (hypertension): (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 (2) Elevated liver function tests: Assessment and Plan: (3) ROBERTO (acute kidney injury): (4) Diarrhea: (5) Nausea & vomiting: (6) Dehydration: (7) Urticarial rash: Likely an allergic reaction. P (8) Intra-abdominal lymphadenopathy: Assessment and Plan: Could be sec to lymphoproliferative disorder vs reactive due to intra abdominal infection vs pancreatico biliary malignancy. 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 Fever persisting here. LFTs are somewhat improved, white blood cell count is higher today. Likely concern for a sending cholangitis, status postcholecystectomy, general surgery recommending ERCP, local discovery guide denied transfer stating that the despite change in CT scan patient did not have obstruction. MRI scan was obtained here but was too blurry related to give accurate interpretation. With condition worsening with fever persisting again recommending transfer, will discuss with [facility] for possible transfer. All Time Spent with Patient Time attestation: Total time spent providing and/or coordinating discharge services: Exam Constitutional Vital Signs, click to edit/add: Last Vital Signs Temp 97.6 F 10/26/22 06:00 Pulse 80 10/26/22 07:27 Resp 18 10/26/22 06:00 BP 125/80 10/26/22 06:00 Pulse Ox 91 L 10/26/22 11:16 O2 Del Method Room Air 10/26/22 11:16 O2 Flow Rate 2 10/26/22 06:00 Documenting provider has reviewed patient's vital signs: yes Common normals: no apparent distress and oriented x3 General appearance: lethargic and ill appearing HENMT Common normals: normocephalic and head/scalp atraumatic Head and scalp: normocephalic and atraumatic Eye Common normals: PERRL and EOMs intact bilaterally Respiratory Common normals: normal respiratory effort, no use of accessory muscles and clear to auscultation bilaterally Effort & inspection: able to speak in complete sentences Auscultation: clear to auscultation bilaterally Cardio Common normals: regular rate, regular rhythm, S1 normal heart sound and S2 normal heart sound Rate: regular rate Rhythm: regular rhythm Heart sounds: S1 normal and S2 normal GI Common normals: Normal to inspection, nondistended, normoactive bowel sounds present, soft to palpation, non-tender and no hepatosplenomegaly Palpation: soft and no hepatosplenomegaly Extremity Common normals: no clubbing, cyanosis or edema Neuro Common normals: oriented x3, moves all extremities, no focal motor deficits and no sensory deficits noted Psych Common normals: mental status grossly normal, thought process normal, denies hallucinations, denies homicidal ideation and denies suicidal ideation Thought process: normal thought process DS: Data Data Completed and Pending Labs on day of discharge: Labs from last 24 hours 10/26/22 10/25/22 10/25/22 04:28 18:20 17:25 WBC 20.8 H RBC 4.53 L Hgb 13.1 L Hct 39.0 L MCV 86.1 MCH 28.9 MCHC 33.6 RDW 15.4 H Plt Count 240 MPV 11.3 Seg Neuts % (Manual) 86.0 Lymphocytes % (Manual) 12.0 L Monocytes % (Manual) 2.0 Eosinophils % (Manual) 0.0 L Basophils % (Manual) 0.0 L Neutrophils # (Manual) 17.88 H Lymphocytes # (Manual) 2.49 Monocytes # (Manual) 0.41 Eosinophils # (Manual) 0.00 Basophils # (Manual) 0.00 Sodium 141 Potassium 4.0 Chloride 105 Carbon Dioxide 25.7 Anion Gap 14.3 BUN 24.0 H Creatinine 1.55 H Est GFR ( Amer) 52 L Est GFR (Non-Af Amer) 43 L BUN/Creatinine Ratio 15.5 Glucose 146 H Calcium 8.0 L Total Bilirubin 1.0 AST 50 H ALT 114 H Alkaline Phosphatase 279 H Total Protein 7.1 Albumin 2.0 L Globulin 5.1 Albumin/Globulin Ratio 0.4 SARS-CoV-2 (PCR) Negative POC Glucose 92 Discharge Plan Discharge Disposition: Xfer Acute [facility] Condition: Good
[2022-10-26 13:46] LABS: Ammonia 20 umol/L (11-32)
[2022-10-26 13:50] LABS: INR 1.28; Partial Thromboplastin Time 37.9 sec (22.3-36.2); Prothrombin Time 13.4 sec (9.0-11.6)
[2022-10-26 14:15] LABS: SARS-CoV-2 NAA NOT DETECTED (NOT DETECTE)
[2022-10-26] MEDS: CALCIUM CARBONATE 500 MG (200MG ELEMENTAL) TAB CHEW PO ×2 (14:53→22:49)
--- NOTE | 2022-10-26 19:11 | RESP.RT ---
No PRN breathing tx given. Pt denies need. No respiratory distress noted.
[2022-10-26] MEDS: ZOLPIDEM TARTRATE 10 MG TABLET 5 MG PO (22:48)
[2022-10-27] MEDS: LACTATED RINGER'S SOLUTION 1,000 ML 125 ML IV (00:30)
[2022-10-27] MEDS: PIPERACILLIN SODIUM/TAZOBACTAM 3.375 GM in 0.9 % SODIUM CHLORIDE 50 ML IV (03:08)
[2022-10-27 04:20] VITALS: O2SAT 93
[2022-10-27 04:51] LABS: Hematocrit 35.5 % (42.0-54.0); Hemoglobin 12.2 g/dL (14.0-18.0); Mean Corpuscular HGB Conc 34.4 g/dL (29.9-35.2); Mean Corpuscular Hemoglobin 29.3 pg (25.9-34.0); Mean Corpuscular Volume 85.3 fL (80.0-94.0); Mean Platelet Volume 11.2 fL (9.5-13.5); Platelet Count 255 10^3/uL (150-450); Red Blood Count 4.16 10^6/uL (4.70-6.10); Red Cell Distribution Width 15.5 % (11.0-15.0); White Blood Count 22.3 10^3/uL (4.0-11.0)
[2022-10-27 06:00] VITALS: BP 144/87; PULSE 77; RESP 20; TEMP 36.4; O2SAT 93
[2022-10-27] MEDS: NEOMYCIN/POLYMYXIN B/HYDROCORTISONE OTIC SUSP 200 DROP/10 ML BOTTLE OT (06:01)
[2022-10-27] MEDS: CALCIUM CARBONATE 500 MG (200MG ELEMENTAL) TAB CHEW PO (06:01)
[2022-10-27 06:32] LABS: Alanine Aminotransferase 91 U/L (16-63); Albumin Globulin Ratio 0.4; Albumin Level 1.8 g/dL (3.4-5.0); Alkaline Phosphatase 225 U/L (46-116); Anion Gap 12.7; Aspartate Amino Transferase 37 U/L (15-37); BUN Creatinine Ratio 19.5; Bilirubin Total 0.7 mg/dL (0.2-1.0); Calcium 7.6 mg/dL (8.5-10.1); Carbon Dioxide 24.3 mmol/L (21.0-32.0); Chloride 110 mmol/L (98-107); Estimated GFR (African America >60 (>=60); Estimated GFR (Non-African Ame 59 (>=60); Globulin 4.9 g/dL; Glucose 126 mg/dL (74-106); Sodium 143 mmol/L (136-145); Total Protein 6.7 g/dL (6.4-8.2)
[2022-10-27 07:43] LABS: Segmented Neut Absolute Manual 19.84 10^3/uL (1.4-6.5)
[2022-10-27 07:44] LABS: Atypical Lymphocytes Abs Man 0.4; Lymphocytes Absolute Manual 1.33 10^3/uL (1.20-3.80); Monocytes Absolute Manual 0.66 10^3/uL (0.30-0.80)
[2022-10-27 07:46] LABS: Poikilocytosis 1+; Tear Drop Cells 1+
[2022-10-27 07:47] LABS: Ovalocytes 1+
[2022-10-27 08:00] VITALS: PULSE 75; RESP 18
[2022-10-27 08:54] VITALS: BP 154/81; PULSE 75; RESP 18; O2SAT 92
--- NOTE | 2022-10-27 08:56 | CM.NOTE ---
Rounds made with Dr. Kearns pt awaiting transfer to [facility].
[2022-10-27] MEDS: OMEPRAZOLE 40 MG CAPSULE.DR PO (10:13)
[2022-10-27] MEDS: CETIRIZINE HCL 10 MG TABLET PO (10:13)
[2022-10-27] MEDS: MONTELUKAST SODIUM 10 MG TABLET PO (10:13)
[2022-10-27] MEDS: TAMSULOSIN HCL 0.4 MG CAPSULE PO (10:13)
[2022-10-27] MEDS: PREDNISONE 20 MG TABLET 40 MG PO (10:14)
[2022-10-27] MEDS: ENOXAPARIN SODIUM 40 MG/0.4 ML SYRINGE SUBQ (10:14)
[2022-10-27] MEDS: POTASSIUM CHLORIDE 10 MEQ ER TABLET 20 MEQ PO (10:14)
[2022-10-27] MEDS: METOPROLOL SUCCINATE 50 MG TAB.ER.24H PO (10:14)
[2022-10-27] MEDS: CEFTAZIDIME 2,000 MG in 0.9 % SODIUM CHLORIDE 100 ML 200 MG IV (10:16)
[2022-10-27 10:46] VITALS: O2SAT 91
--- NOTE | 2022-10-27 11:52 | CM.NOTE ---
Important Message From Medicare discussed with pt, pt verbalizes understanding and signs paper. Original given to pt and copy placed in pt's chart.
[2022-10-27] MEDS: METRONIDAZOLE/SODIUM CHLORIDE 500 MG/100 ML PREMIX 100 MG IV (11:55)
--- NOTE | 2022-10-27 11:58 | PC.NURSE ---
called report to [facility] at this time
[2022-10-27 12:00] VITALS: BP 138/82; PULSE 81; RESP 20; O2SAT 92
== END 2022-10-27 13:02 | disposition short-term general hospital (02) | DRG 872 ==
LOC: ER 20:52 → MS 20:55
PROVIDERS: Internal Medicine; Admitting Provider Internal Medicine; Emergency Provider Emergency Medicine; PCP Internal Medicine; Visit Provider Family Medicine
DX: A41.9 Sepsis, unspecified organism (principal); N17.9 Acute kidney failure, unspecified; K83.09 Other cholangitis; A09 Infectious gastroenteritis and colitis, unspecified; R79.89 Other specified abnormal findings of blood chemistry; R11.2 Nausea with vomiting, unspecified; E86.0 Dehydration; K70.30 Alcoholic cirrhosis of liver without ascites; I25.10 Atherosclerotic heart disease of native coronary artery without angina pectoris; I10 Essential (primary) hypertension; F10.11 Alcohol abuse, in remission; R59.0 Localized enlarged lymph nodes; L50.0 Allergic urticaria; E78.5 Hyperlipidemia, unspecified; Z87.891 Personal history of nicotine dependence; Z79.899 Other long term (current) drug therapy; Z90.49 Acquired absence of other specified parts of digestive tract; Z95.5 Presence of coronary angioplasty implant and graft; Z95.1 Presence of aortocoronary bypass graft
CPT/HCPCS: 36415; 71045; 74177; 74181; 76705; 80053; 80074; 80329; 81001; 81003; 82140; 82948; 83605; 83690; 83735; 84484; 85027; 85610; 85652; 85730; 86140; 87040; 87507; 87635; 87811; 94761; 96361; 96365; 96366; 96367; 96372; 96374; 96375; 96376; 97110; 97162; 97165; 97535; 99285; J3370; Q3014; Q9966; U0003

== ENCOUNTER 2022-11-12 09:36 | Inpatient (IN) | payer MEDICARE, OTHER, SELFPAY ==
[2022-11-12] VITALS (62 sets, daily range): BP systolic 95–123; BP diastolic 60–75; PULSE 94–116; RESP 1–31; TEMP 36.8–37.3; O2SAT 93–98; BMI 25.0; BMI 23.0
--- NOTE | 2022-11-12 09:44 | ECG_ITS ---
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
--- NOTE | 2022-11-12 09:45 | ED.ARRPALP1 ---
HPI - Arrhythmia/Palpitations General Chief Complaint: Arrhythmia/Palpitations Stated Complaint: WEAKNESS Time Seen by Provider: 11/12/22 09:39 Source: patient Mode of arrival: ambulance History of Present Illness HPI narrative: 87-year-old male presented because he was weak. He's been feeling that way for a few days and the paramedics recognized that his heart rate was in the 170s, atrial fibrillation RVR. He has a history of atrial fibrillation and they gave him 10 mg of IV Cardizem twice. His heart rate is now in the 115 range and he states he feels back to normal now. No fever or vomiting and he doesn't complain of chest pain. Related Data Home Medications Medication Instructions Recorded Confirmed atorvastatin 20 mg tablet 40 mg PO DAILY 10/23/22 11/12/22 cetirizine 10 mg tablet 10 mg PO DAILY 10/23/22 11/12/22 furosemide 40 mg tablet 40 mg PO DAILY 10/23/22 11/12/22 metoprolol succinate 50 mg 50 mg PO DAILY 10/23/22 11/12/22 tablet,extended release 24 hr potassium chloride 10 mEq 20 meq PO BID 10/23/22 10/24/22 tablet,extended release acetaminophen 325 mg tablet (Aphen) 650 mg PO Q6H PRN fever or pain 10/24/22 11/12/22 diazepam 5 mg tablet 5 mg PO Q8H PRN anxiety 10/24/22 11/12/22 diphenhydramine HCl 25 mg capsule 25 mg PO DAILY 10/24/22 11/12/22 (Benadryl) tamsulosin 0.4 mg capsule 0.4 mg PO Q24H 10/24/22 11/12/22 zolpidem 10 mg tablet 10 mg PO BEDTIME PRN sleep 10/24/22 11/12/22 ondansetron HCl 4 mg tablet 4 mg PO Q8H PRN nausea and vomiting 10/27/22 11/12/22 Allergies Allergy/AdvReac Type Severity Reaction Status Date / Time lidocaine AdvReac Unknown Verified 11/12/22 09:41 tramadol [From Ultram] AdvReac Unknown Verified 11/12/22 09:41 novacaine AdvReac Unknown Uncoded 11/12/22 09:41 Review of Systems ROS Narrative A ten point review of systems is negative except as noted above. PFSH PFS Medical History (Updated 11/12/22 @ 11:45 by Abiodun Sandoval MD) Surgical History (Updated 10/25/22 @ 22:12 by Shaikh Jessica MD) Family History Mother Family history of CHF (congestive heart failure) Family history of hypertension Family history of myocardial infarction Father Family history of cancer Sister Family history of cancer Social History Within the past year, how often did you have a drink containing alcohol: never Score interpretation: A score less than 4 is consistent with normal alcohol consumption. Smoking status: Former smoker Non-prescribed substance use: denies use Previous occupational history: retired Highest level of school completed/degree received: Associate degree: occupational, technical, vocational program Are you now , , , , never or living with a partner: In a typical week, how many times do you talk on the telephone with family, friends, or neighbors: 3 or more times per week How often do you get together with friends or relatives: 3 or more times per week How often do you attend sabianist or hinduism services: 4 or more times per year Little interest or pleasure in doing things: not at all Feeling down, depressed, or hopeless: not at all Feel stressed/tense/nervous/anxious/difficulty sleeping: not at all Do you think of yourself as: straight/heterosexual Gender Identity: male Exam Narrative Exam Narrative: Nurses note and vital signs reviewed and patient is not hypoxic. General: The patient appears well and in no apparent distress. Patient is resting comfortably on cart. Skin: Warm, dry, no pallor noted. There is diffuse erythematous rash present that he's had for months Head: Normocephalic, atraumatic Eye: Normal conjunctiva, no drainage Ears, Nose, Mouth, and Throat: oral mucosa is moist. Nares patent. Cardiovascular: irregularly irregular and mildly tachycardic Respiratory: Patient is in no distress, no accessory muscle use, lungs are clear to auscultation, no wheezing, rales or rhonchi Back: non-tender GI: soft and nontender Musculoskeletal: The patient has no evidence of calf tenderness, no pitting edema, symmetrical pulses noted bilaterally Neurological: A&O, normal speech Psychiatric: Cooperative Constitutional Vital Signs, click to edit/add: Last Vital Signs Pulse 105 H 11/12/22 11:20 Resp 17 11/12/22 11:20 BP 115/71 11/12/22 11:15 Pulse Ox 97 11/12/22 11:20 O2 Del Method Room Air 11/12/22 09:37 Course Vital Signs Vital signs: Vital Signs Pulse Rate 116 H 11/12/22 09:37 Respiratory Rate 22 11/12/22 09:37 Blood Pressure 95/71 11/12/22 09:37 Pulse Oximetry 97 11/12/22 09:37 Oxygen Delivery Method Room Air 11/12/22 09:37 Pulse Rate 105 H 11/12/22 11:20 Respiratory Rate 17 11/12/22 11:20 Blood Pressure 115/71 11/12/22 11:15 Pulse Oximetry 97 11/12/22 11:20 Oxygen Delivery Method Room Air 11/12/22 09:37 MDM - Arrhythmia/Palpitations MDM Narrative Medical decision making narrative: The patient presents with a defibrillation and RVR. He was given IV Cardizem in the prehospital setting which was effective but then his heart rate came up and he was given another 10 mg of IV Cardizem here and then placed on drip. Troponin negative. He is being admitted to ICU. Findings are discussed with the patient and his . Differential Diagnosis Differential diagnosis: Likely palpitations, anxiety, sinus tachycardia, artial fibrillation, artial flutter, ventricular premature beats and supraventricular tachycardia Lab Data Attestation: I reviewed the patient's lab results. Labs: Lab Results 11/12/22 Range/Units 09:53 WBC 17.0 H (4.0-11.0) 10^3/uL RBC 4.51 L (4.70-6.10) 10^6/uL Hgb 13.2 L (14.0-18.0) g/dL Hct 40.9 L (42.0-54.0) % MCV 90.7 (80.0-94.0) fL MCH 29.3 (25.9-34.0) pg MCHC 32.3 (29.9-35.2) g/dL RDW 15.0 (11.0-15.0) % Plt Count 264 (150-450) 10^3/uL MPV 10.7 (9.5-13.5) fL Seg Neuts % (Manual) 82.0 Band Neutrophils % 2.0 (0-5) % Lymphocytes % (Manual) 7.0 L (20.5-60.0) % Atypical Lymphs % (Man) 3.0 % Monocytes % (Manual) 4.0 (1.7-12.0) % Eosinophils % (Manual) 2.0 (0.9-7.0) % Basophils % (Manual) 0.0 L (0.2-2.0) % Neutrophils # (Manual) 13.94 H (1.4-6.5) 10^3/uL Band Neutrophils # 0.3 (0.0-0.3) 10^3/uL Lymphocytes # (Manual) 1.19 L (1.20-3.80) 10^3/uL Abs Atypical Lymphs Man 0.5 Monocytes # (Manual) 0.68 (0.30-0.80) 10^3/uL Eosinophils # (Manual) 0.34 (0.00-0.70) 10^3/uL Basophils # (Manual) 0.00 (0.00-0.10) 10^3/uL Sodium 134 L (136-145) mmol/L Potassium 4.3 (3.5-5.1) mmol/L Chloride 99 (98-107) mmol/L Carbon Dioxide 22.2 (21.0-32.0) mmol/L Anion Gap 17.1 BUN 22.0 H (7.0-18.0) mg/dL Creatinine 2.00 H (0.70-1.30) mg/dL Est GFR ( Amer) 39 L (>=60) Est GFR (Non-Af Amer) 32 L (>=60) BUN/Creatinine Ratio 11.0 Glucose 112 H (74-106) mg/dL Calcium 8.0 L (8.5-10.1) mg/dL Troponin I High Sens <4.0 L (4.0-76.1) pg/mL Imaging Data Chest x-ray: Radiologist's impression: Procedure: XR chest 1V EXAM: XR chest 1V HISTORY: . atrial fibrillation RVR, weak . COMPARISON: 10/24/2022 TECHNIQUE: Single view of the chest FINDINGS: Heart and vascularity are unremarkable. Lungs are free of focal infiltrates. Median sternotomy sutures are noted. Early atherosclerotic changes of the thoracic aorta are noted. IMPRESSION: No acute heart or lung disease identified. Electronically authenticated by: GARRISON BATRES Date: 11/12/2022 10:30 ECG Data Attestation: I personally reviewed and interpreted this ECG as follows: (EKG on my interpretation shows atrial fibrillation with a rate of 113.) Critical Care Time Critical Care Time Critical Care Time: Yes Total Critical Care Time: 40 Attestation: Due to the high probability of sudden and clinically significant deterioration in the patient's condition he/she required the highest level of my preparedness to intervene urgently I provided critical care time including documentation time, medication orders and management, reevaluation, vital sign assessment, ordering and reviewing of lab tests, ordering and reviewing of x-ray studies, and admission orders. Aggregate critical care time is 40 minutes including only time during which I was engaged in work directly related to his/her care and did not include time spent treating other patients simultaneously. Discharge Plan Discharge Chief Complaint: Arrhythmia/Palpitations Clinical Impression: Atrial fibrillation with RVR Patient Disposition: Admitted As Inpatient Time of Disposition Decision: 11:45 Condition: Good
[2022-11-12 10:04] LABS: Hematocrit 40.9 % (42.0-54.0); Hemoglobin 13.2 g/dL (14.0-18.0); Mean Corpuscular HGB Conc 32.3 g/dL (29.9-35.2); Mean Corpuscular Hemoglobin 29.3 pg (25.9-34.0); Mean Corpuscular Volume 90.7 fL (80.0-94.0); Mean Platelet Volume 10.7 fL (9.5-13.5); Platelet Count 264 10^3/uL (150-450); Red Blood Count 4.51 10^6/uL (4.70-6.10)
[2022-11-12 10:14] LABS: Anion Gap 17.1; Carbon Dioxide 22.2 mmol/L (21.0-32.0); Chloride 99 mmol/L (98-107); Estimated GFR (African America 39 (>=60); Estimated GFR (Non-African Ame 32 (>=60); Glucose 112 mg/dL (74-106); Potassium 4.3 mmol/L (3.5-5.1); Sodium 134 mmol/L (136-145)
--- NOTE | 2022-11-12 10:17 | XR_ITS ---
The [address] [address] Patient Name: DC LUO MRN: [id number] date: 1935 Sex: M Assigned Patient Location: ED.MAIN Current Patient Location: ED.MAIN Accession/Order Number: [id number] Exam Date: 11/12/2022 10:08 Report Date: 11/12/2022 10:30 At the request of: GEORGIA REED Procedure: XR chest 1V EXAM: XR chest 1V HISTORY: . atrial fibrillation RVR, weak . COMPARISON: 10/24/2022 TECHNIQUE: Single view of the chest FINDINGS: Heart and vascularity are unremarkable. Lungs are free of focal infiltrates. Median sternotomy sutures are noted. Early atherosclerotic changes of the thoracic aorta are noted. XR/XR chest 1V IMPRESSION: No acute heart or lung disease identified. Electronically authenticated by: GARRISON BATRES Date: 11/12/2022 10:30
[2022-11-12 10:22] LABS: Troponin I High Sensitivity <4.0 pg/mL (4.0-76.1)
[2022-11-12 10:35] LABS: Band Neutrophils Absolute 0.3 10^3/uL (0.0-0.3); Lymphocytes Absolute Manual 1.19 10^3/uL (1.20-3.80); Monocytes Absolute Manual 0.68 10^3/uL (0.30-0.80); Segmented Neut Absolute Manual 13.94 10^3/uL (1.4-6.5)
[2022-11-12 10:36] LABS: Atypical Lymphocytes Abs Man 0.5; Eosinophils Absolute Manual 0.34 10^3/uL (0.00-0.70)
[2022-11-12] MEDS: dilTIAZem HCL 125 MG in 0.9 % SODIUM CHLORIDE 100 ML IV (11:12)
[2022-11-12] MEDS: DILTIAZEM HCL 25 MG/5 ML VIAL 10 MG IV (11:12)
--- NOTE | 2022-11-12 12:06 | CA_ITS ---
Patient: DC LUO Exam Date: 11/12/2022 : 1935 Gender:M Ordering : DANIELA BLOOM . Admission #: [id number] Family : Order #: [id number] CLICK HERE TO VIEW EXAM ECHOCARDIOGRAM REPORT PROCEDURE: CA ECHO LIMITED INDICATIONS: afib with rvr COMPARISON: None. DESCRIPTION: Limited ECHOCARDIOGRAM Real-time transthoracic echocardiography with 2D and M-mode performed. QUALITY: Technical quality was adequate. LEFT VENTRICLE: Normal chamber size. Moderate concentric left ventricular hypertrophy. LV EF: Global left ventricular systolic function is normal. Visual estimation of left ventricular ejection fraction is 55-60% LEFT ATRIUM: Normal chamber size. RIGHT ATRIUM: Normal chamber size. RIGHT VENTRICLE: Normal chamber size. Normal right ventricular systolic function. TRICUSPID VALVE: Normal mobility and thickness. MITRAL VALVE: Normal mobility and thickness. AORTIC VALVE: Normal trileaflet appearance. AORTIC ROOT: Normal diameter and appearance. PULMONIC VALVE: Not well visualized. PERICARDIUM: Anterior free space; trivial effusion versus fat pad. IVC: Collapses with inspirations. Normal size. CONCLUSION: Global left ventricular systolic function is normal; visually estimated ejection fraction is 55 to 60%. Moderate left ventricular hypertrophy. The right ventricle is normal in size and systolic function. Anterior free space; trivial effusion versus fat pad. A limited echocardiogram was performed. Adult Echocardiography Procedure Report Left Ventricle LVEDD (3.7 - 5.6 cm): 4.01 cm LVESD (2.2 - 4.0 cm): 2.83 cm LVIVS thickness (0.6 - 1.2 cm): 1.36 cm LVPW thickness (0.5 - 1.0 cm): 1.33 cm LVOT Diameter 2.21 cm Left Atrium Left Atrium Systolic Dimension: 3.94 cm Mitral Valve Right Ventricle RV Internal Diastolic Dimension: 2.99 cm Aorta AO Root Diam: 3.63 cm Aortic Valve Tricuspid Valve Pulmonic Valve Right Atrium Right Atrium Systolic Pressure: 59.23 ml, 59.23 ml Dictated by: Reina Cordero M.D. on 11/13/2022 at 16:24 Approved by: Reina Cordero M.D. on 11/13/2022 at 16:26
[2022-11-12] MEDS: LACTATED RINGER'S SOLUTION 1,000 ML 50 ML IV (12:30)
[2022-11-12 12:47] LABS: INR 1.24; Partial Thromboplastin Time 33.3 sec (22.3-36.2)
[2022-11-12 13:07] LABS: Chol HDL Ratio 4.8; Cholesterol 111 mg/dL (<=200); HDL Cholesterol 23 mg/dL (40-60); Magnesium 1.8 mg/dL (1.8-2.4); Thyroid Stimulating Hormone 1.864 uIU/mL (0.358-3.740); Triglycerides 77 mg/dL (<=150); VLDL CHOLESTEROL 15.4 mg/dL
--- NOTE | 2022-11-12 13:07 | P.HP_ITS ---
H&P: HPI History of Present Illness Chief complaint: WEAKNESS, ATRIAL FIBRILLATION WITH RVR Narrative: patient is a pleasant 87-year-old gentleman with past medical history of atrial fibrillation but as of late has been in normal sinus rhythm, hypertension, asthma, hyperlipidemia and GERD, insomnia, benign prostatic hypertrophy who presented to the Emergency Room today with generalized weakness. EMS found patient's heart rate to be in the 170s patient was given Cardizem and route and was started on a Cardizem drip in the Emergency Room. Patient was found to be in atrial fibrillation with RVR. CBC CMP showed no acute abnormalities with the exception of acute kidney injury. Normal chest x-ray. Patient and report increased weakness, decreased appetite, and poor drinking. He had constipation and had a manual disimpaction last night by home health nurse, has had 3 BM's since. He has never had heart palpitations, chest pain, n/v/d. Just felt very weak and out of sort . Also discussed code status with and patient and he wishes to be DNRCCA, paper was signed and order placed in chart. He follows with Dr. Oglesby and Dr. Hector for cardiology. History of being on anticoagulation but nothing in the recent year per patient. They also have been decreasing his metoprolol. Review of Systems ROS Narrative ROS: a complete review of systems were reviewed with patient and are positive as below or listed in History of Chief Complaint. General: no fever, chills, night sweats Head: no headache, trauma, visual changes, nausea or vomiting Skin: no reported rashes, itching or sores Eyes: no blurriness of vision Ears: no reported hearing loss, vertigo, earache, or tinnitus Throat: no sore throat, hoarseness, swelling of neck, or tongue pain Heart: no chest pain Lungs: no shortness of breath or cough GI: no diarrhea or vomiting/nausea, constipation Urinary: no urinary urgency, frequency or pain Neuro: no numbness or tingling HEM: no bleeding issues or bruising ENDO: no thyroid problems Psych: no anxiety or depression [facility] Medical History Surgical History Family History Mother Family history of CHF (congestive heart failure) Family history of hypertension Family history of myocardial infarction Father Family history of cancer Sister Family history of cancer Social History Within the past year, how often did you have a drink containing alcohol: never Score interpretation: A score less than 4 is consistent with normal alcohol consumption. Smoking status: Former smoker Non-prescribed substance use: denies use Previous occupational history: retired Highest level of school completed/degree received: Associate degree: occupational, technical, vocational program Are you now , , , , never or living with a partner: In a typical week, how many times do you talk on the telephone with family, friends, or neighbors: 3 or more times per week How often do you get together with friends or relatives: 3 or more times per week How often do you attend episcopalian or anglican services: 4 or more times per year Little interest or pleasure in doing things: not at all Feeling down, depressed, or hopeless: not at all Feel stressed/tense/nervous/anxious/difficulty sleeping: not at all Do you think of yourself as: straight/heterosexual Gender Identity: male Meds Home Medications and Allergies Home Medications Medication Instructions Recorded Confirmed Type atorvastatin 20 mg tablet 40 mg PO DAILY 10/23/22 11/12/22 History cetirizine 10 mg tablet 10 mg PO DAILY 10/23/22 11/12/22 History furosemide 40 mg tablet 40 mg PO DAILY 10/23/22 11/12/22 History metoprolol succinate 50 mg 50 mg PO DAILY 10/23/22 11/12/22 History tablet,extended release 24 hr potassium chloride 10 mEq 20 meq PO BID 10/23/22 11/12/22 History tablet,extended release acetaminophen 325 mg tablet (Aphen) 650 mg PO Q6H PRN fever or pain 10/24/22 11/12/22 History diazepam 5 mg tablet 5 mg PO Q8H PRN anxiety 10/24/22 11/12/22 History diphenhydramine HCl 25 mg capsule 25 mg PO DAILY 10/24/22 11/12/22 History (Benadryl) tamsulosin 0.4 mg capsule 0.4 mg PO Q24H 10/24/22 11/12/22 History zolpidem 10 mg tablet 10 mg PO BEDTIME PRN sleep 10/24/22 11/12/22 History ondansetron HCl 4 mg tablet 4 mg PO Q8H PRN nausea and vomiting 10/27/22 11/12/22 History ascorbic acid (vitamin C) 1,000 mg 1 g PO DAILY 11/12/22 11/12/22 History tablet (C-1000) ipratropium bromide 42 mcg (0.06 2 spray intranasal TID 11/12/22 11/12/22 History %) nasal spray montelukast 10 mg tablet 10 mg PO QPM 11/12/22 11/12/22 History (Singulair) nitroglycerin 0.4 mg sublingual 0.4 mg sublingual Q5M 11/12/22 11/12/22 History tablet pantoprazole 40 mg tablet,delayed 40 mg PO QAM 11/12/22 11/12/22 History release (Protonix) vitamin B complex PO 11/12/22 History Allergies Allergy/AdvReac Type Severity Reaction Status Date / Time lidocaine AdvReac Unknown Verified 11/12/22 09:41 tramadol [From Ultram] AdvReac Unknown Verified 11/12/22 09:41 novacaine AdvReac Unknown Uncoded 11/12/22 09:41 Exam Narrative Exam Narrative: General: Patient is alert, and oriented to person, place and time with normal affect, proper hygiene Skin: papular dermatitis in the anxillary region Head: atraumatic, acephalic Eyes: PERRLA, no nystagmus present, conjunctiva clear, no scleral icterus Ears: normal Tympanic Membrane, normal gross auditory acuity Nose: symmetric, no discharge, no maxillary or frontal sinus tenderness Mouth/Throat: no erythema, exudate, or tonsillar enlargement, normal dentition Neck: no masses palpated, normal thyroid, no JVD or audible carotid bruits Heart: irregular rate and rhythm, no murmurs/rubs/gallops Lungs: no audible wheezes, crackles and normal breath sounds all lung waddell Abdomen: Normal audible bowel sounds, no distension, No palpable masses, no organomegaly, no rebound/guarding/ or rigidity Musculoskeletal: no swelling bilateral lower extremities Lymph: no supraclavicular, axillary, or anterior/posterior cervical adenopathy Neuro: CN II-X grossly intact, normal sensation upper and lower extremities Constitutional Vital Signs, click to edit/add: Last Vital Signs Pulse 104 H 11/12/22 12:00 Resp 15 11/12/22 12:00 BP 117/67 11/12/22 12:00 Pulse Ox 96 11/12/22 12:00 O2 Del Method Room Air 11/12/22 12:40 Results Labs Labs: Short CBC 11/12/22 Range/Units 09:53 WBC 17.0 H (4.0-11.0) 10^3/uL Hgb 13.2 L (14.0-18.0) g/dL Hct 40.9 L (42.0-54.0) % Plt Count 264 (150-450) 10^3/uL BMP 11/12/22 09:53 Sodium 134 L Potassium 4.3 Chloride 99 Carbon Dioxide 22.2 BUN 22.0 H Creatinine 2.00 H Glucose 112 H Calcium 8.0 L Assessment and Plan Assessment and Plan (1) Atrial fibrillation with RVR: Assessment and Plan: patient was given a Cardizem bolus and was started on a Cardizem drip at 5 mg per hour, heart rate has been less than a hundred is still in atrial fibrillation. Will place back on home metoprolol but will increase to 50 mg twice a day. Echocardiogram, further electrolytes including magnesium and thyroid-stimulating hormone and lipid A1c are all pending cardiology consult since he has established urinary tract infection and CT patient and this is a change from his norm. Therapeutic Lovenox initiated and will start Eliquis tomorrow. (2) ROBERTO (acute kidney injury): Assessment and Plan: gentle IVF with LR @50 cc/hr (3) Dehydration: Assessment and Plan: IVF (4) GERD (gastroesophageal reflux disease): Assessment and Plan: continue PPI (5) HLD (hyperlipidemia): Assessment and Plan: continue statin, recheck lipids (6) HTN (hypertension): Assessment and Plan: continue home medications, adjust metoprolol (7) Liver cirrhosis, alcoholic: Assessment and Plan: recheck LFT's (8) CAD (coronary artery disease): Assessment and Plan: continue statin (9) Insomnia: Assessment and Plan: continue ambien (10) General weakness: Assessment and Plan: multi-factorial, pt/ot, afib with rvr, deconditioning, dehydration Plan patient is a DNRCCA therapeutic lovenox patient is in observation status and is not expected to stay more than 2 midnights
[2022-11-12 13:12] LABS: Alanine Aminotransferase 45 U/L (16-63); Albumin Globulin Ratio 0.3; Alkaline Phosphatase 256 U/L (46-116); Aspartate Amino Transferase 34 U/L (15-37); Bilirubin Direct 0.3 mg/dL (0.0-0.2); Bilirubin Total 0.8 mg/dL (0.2-1.0); Estimated Average Glucose 114 mg/dL; Globulin 5.9 g/dL; Glycohemoglobin A1C 5.6 % (4.5-6.2); Total Protein 7.9 g/dL (6.4-8.2)
--- NOTE | 2022-11-12 15:16 | ECG_ITS ---
The [facility] Test Date: 2022-11-12 Pat Name: DC LUO Department: Room: 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1935 Requested By: DARREN BARAJAS Order Number: [id number] Reading MD: JUAN PIPER Measurements Intervals [place] Rate: 103 P: 236 AK: 280 QRS: -66 QRSD: 94 T: 46 QT: 346 QTc: 406 Interpretive Statements 1220 Rapid atrial rhythm 2231 First degree AV block 3634 Inferior myocardial infarction, age undetermined 8003 Consistent with pulmonary disease 9150 abnormal ECG Compared to ECG 11/12/2022 09:43:49 First degree AV block now present Incomplete right bundle-branch block now present Atrial fibrillation no longer present Myocardial infarct finding still present Electronically Signed On 11-13-2022 7:18:25 EDT by JUAN PIPER
[2022-11-12] MEDS: METOPROLOL SUCCINATE 25 MG TAB.ER.24H 75 MG PO (15:45)
--- NOTE | 2022-11-12 18:11 | DIETREC ---
Provide 237 mL Ensure Clear BID.
[2022-11-12] MEDS: POTASSIUM CHLORIDE 10 MEQ ER TABLET 20 MEQ PO (21:14)
[2022-11-12] MEDS: ENOXAPARIN SODIUM 80 MG/0.8 ML SYRINGE SUBQ (21:15)
[2022-11-13] VITALS (87 sets, daily range): BP systolic 84–128; BP diastolic 50–75; PULSE 90–152; RESP 5–29; TEMP 36.4–37.4; O2SAT 93–98
[2022-11-13] MEDS: OMEPRAZOLE 40 MG CAPSULE.DR PO (05:31)
[2022-11-13 05:36] LABS: Hematocrit 36.9 % (42.0-54.0); Hemoglobin 12.2 g/dL (14.0-18.0); Mean Corpuscular HGB Conc 33.1 g/dL (29.9-35.2); Mean Corpuscular Hemoglobin 29.3 pg (25.9-34.0); Mean Corpuscular Volume 88.7 fL (80.0-94.0); Mean Platelet Volume 10.4 fL (9.5-13.5); Platelet Count 290 10^3/uL (150-450); Red Blood Count 4.16 10^6/uL (4.70-6.10); White Blood Count 15.5 10^3/uL (4.0-11.0)
[2022-11-13 06:20] LABS: Alanine Aminotransferase 41 U/L (16-63); Albumin Globulin Ratio 0.3; Albumin Level 1.8 g/dL (3.4-5.0); Alkaline Phosphatase 211 U/L (46-116); Aspartate Amino Transferase 35 U/L (15-37); BUN Creatinine Ratio 11.9; Bilirubin Total 0.6 mg/dL (0.2-1.0); Calcium 7.9 mg/dL (8.5-10.1); Carbon Dioxide 25.8 mmol/L (21.0-32.0); Chloride 101 mmol/L (98-107); Estimated GFR (African America 54 (>=60); Estimated GFR (Non-African Ame 44 (>=60); Globulin 6.2 g/dL; Glucose 95 mg/dL (74-106); Potassium 3.8 mmol/L (3.5-5.1); Sodium 134 mmol/L (136-145)
[2022-11-13 06:23] LABS: Eosinophils Absolute Manual 1.24 10^3/uL (0.00-0.70); Lymphocytes Absolute Manual 2.48 10^3/uL (1.20-3.80); Monocytes Absolute Manual 1.55 10^3/uL (0.30-0.80); Segmented Neut Absolute Manual 10.23 10^3/uL (1.4-6.5)
[2022-11-13 06:24] LABS: Rouleaux SEEN
[2022-11-13] MEDS: LACTATED RINGER'S SOLUTION 1,000 ML 50 ML IV (09:12)
[2022-11-13] MEDS: METOPROLOL SUCCINATE 25 MG TAB.ER.24H 75 MG PO (09:13)
[2022-11-13] MEDS: POTASSIUM CHLORIDE 10 MEQ ER TABLET 20 MEQ PO ×2 (09:13→21:52)
[2022-11-13] MEDS: CETIRIZINE HCL 10 MG TABLET PO (09:13)
[2022-11-13] MEDS: ENOXAPARIN SODIUM 80 MG/0.8 ML SYRINGE SUBQ (09:13)
[2022-11-13] MEDS: TAMSULOSIN HCL 0.4 MG CAPSULE PO (09:13)
[2022-11-13] MEDS: ATORVASTATIN CALCIUM 20 MG TABLET 40 MG PO (09:13)
[2022-11-13] MEDS: FUROSEMIDE 40 MG TABLET PO (09:14)
--- NOTE | 2022-11-13 09:39 | CM.NOTE ---
Rounds made with Dr. Vazquez, ok to discharge to home today. PT does recommend HH services, will speak with pt prior to discharge about HH.
--- NOTE | 2022-11-13 10:27 | ECG_ITS ---
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
--- NOTE | 2022-11-13 10:32 | SWNOTE1 ---
SW met with pt and to discuss dc needs. Pt lives at home with his . He has a rollator and cane at home that he uses. Pt's voices she does not like the rollator for him as it goes too fast. She inquired about a walker. He got the rollator from the [employer]. SW to let doctor know a walker is needed so she can write script and document. Pt's stated he was at the hospital not long ago and was transferred to [place] and he has been home for about a week. She voiced he was getting up to go to the bathroom, but felt he has not been 100%. Pt does currently have [facility]. Pt's notified them he was here. Pt's heart rate is increased right now and nursing in monitoring and waiting to see what the plan is after that. SW to check back in later today and see what therapy recommends.
--- NOTE | 2022-11-13 10:42 | SWNOTE1 ---
ROSITA did call [facility] and pt is current with them. SW to send updates.
--- NOTE | 2022-11-13 10:49 | PC.NURSE ---
1026- notified of elevated HR, requested EKG, obtained and updated with results. Pt has no symptoms, sitting in recline with visiting. Alert and oriented, watching TV.
--- NOTE | 2022-11-13 11:43 | PT.DAILY ---
Physical Therapy Daily Note PT Daily Note/Assess Start: 11/13/22 11:34 Freq: Status: Active Protocol: Document 11/13/22 11:35 TAWANDA (Rec: 11/13/22 11:43 [facility] [id number]) Physical Therapy Daily Note/Assessment Time In/Time Out Time In 11:00 Time Out 11:10 Pain In Pain N/A Pain Out Pain N/A Subjective Subjective Saw pt in 2 sessions. Finishing with OT as I enter room. Pt's HR elevated this morning - 145-155 while in room. Therapeutic Exercise Time Therapeutic Exercise Minutes (minutes) 3 Therapeutic Exercise Units 0 Therapeutic Exercise Treatment Therapeutic Exercise Treatment Seated LE strengthening in BS chair 10x ea - AP, marches and LAQ. HR remains between 145- 155. Consulted with nursing - hold on amb for a little while until HR comes down. Followed up with pt about 40 min later to finish session. Therapeutic Activity Time Therapeutic Activity Minutes (minutes) 3 Therapeutic Activity Units 0 Therapeutic Activity Treatment Bed Mobility Ability Moderate Assist Therapeutic Activity Comments (2nd session) Pt standing with nursing upon arrival. Wishes to get back to bed - worn out from elevated HR. Pt stand pivots with RW to sit at EOB. Pt sits EOB 2 min to speak with Dr. Vazquez. Pt then requires ModA to advance his LE to return to supine. Remains supine with nursing present. Total Physical Therapy Time Total Therapy Minutes 6 Total Physical Therapy Units 0 Summary Daily Note Summary Limited session due to elevated HR today. Will follow up tomorrow. NO charge for todays session.
--- NOTE | 2022-11-13 12:07 | PC.NURSE ---
1205- Dr.Rapp obrien dto check in. BP 105/70 HR 142, has dropped into 120's for short minutes. She has not heard back from cardiology, plans for pt to stay today.
[2022-11-13 12:24] LABS: Magnesium 1.8 mg/dL (1.8-2.4); Troponin I High Sensitivity 4.2 pg/mL (4.0-76.1)
--- NOTE | 2022-11-13 12:27 | P.PN_ITS ---
Progress Note: Subjective Subjective Interval history: patient converted to normal sinus rhythm yesterday afternoon which was established on EKG. Cardizem drip was then stopped, metoprolol was increased to 75 mg by mouth daily. No events reported overnight. This morning patient denies any chest pain and says overall he is feeling much improved since yesterday. Physical therapy came to walk the patient today and as he was getting up he became more weak and his heart rate went back up to 150s. EKG showed sinus tachycardia. tried a 500 mL fluid bolus, ordered magnesium and troponins. Patient denies having any chest pain or shortness of breath and just says he starts feeling out of sorts. Blood pressure was 113/71 and on repeat was 100/70. Patient has remained afebrile, there is no cardiology on site today for a inpatient consultation so I notified Dr. Springer [facility] cardiology who recommended starting patient on an amiodarone drip. I also stopped Lasix and will continue with fluids. Exam Narrative Exam Narrative: General: Patient is alert, and oriented to person, place and time with normal affect, proper hygiene Skin: no visible rashes, or ulcers Head: atraumatic, acephalic Eyes: PERRLA, no nystagmus present, conjunctiva clear, no scleral icterus Ears: normal Tympanic Membrane, normal gross auditory acuity Nose: symmetric, no discharge, no maxillary or frontal sinus tenderness Mouth/Throat: no erythema, exudate, or tonsillar enlargement, normal dentition Neck: no masses palpated, normal thyroid, no JVD or audible carotid bruits Heart: Normal rate and rhythm, no murmurs/rubs/gallops Lungs: no audible wheezes, crackles and normal breath sounds all lung waddell Abdomen: Normal audible bowel sounds, no distension, No palpable masses, no organomegaly, no rebound/guarding/ or rigidity Musculoskeletal: muscle atrophy noted, ROM is limited due to being in hospital bed, no swelling bilateral lower extremities Vascular: Normal carotid, radial, femoral, posterior tibial, and dorsalis pedis pulses Lymph: no supraclavicular, axillary, or anterior/posterior cervical adenopathy Neuro: CN II-X grossly intact, normal sensation upper and lower extremities Constitutional Vital Signs, click to edit/add: Last Vital Signs Temp 97.7 F 11/13/22 08:16 Pulse 144 H 11/13/22 12:10 Resp 18 11/13/22 08:16 BP 113/71 11/13/22 11:41 Pulse Ox 93 L 11/13/22 09:24 O2 Del Method Room Air 11/13/22 09:24 Progress Note: Objective Labs Labs: Short CBC 11/13/22 Range/Units 05:16 WBC 15.5 H (4.0-11.0) 10^3/uL Hgb 12.2 L (14.0-18.0) g/dL Hct 36.9 L (42.0-54.0) % Plt Count 290 (150-450) 10^3/uL BMP 11/13/22 05:16 Sodium 134 L Potassium 3.8 Chloride 101 Carbon Dioxide 25.8 BUN 18.0 Creatinine 1.51 H Glucose 95 Calcium 7.9 L Liver Function 11/12/22 11/13/22 Range/Units 09:53 05:16 Total Bilirubin 0.8 0.6 (0.2-1.0) mg/dL Direct Bilirubin 0.3 H (0.0-0.2) mg/dL AST 34 35 (15-37) U/L ALT 45 41 (16-63) U/L Alkaline Phosphatase 256 H 211 H (46-116) U/L Albumin 2.0 L 1.8 L (3.4-5.0) g/dL Progress Note: A&P Assessment and Plan (1) Sinus tachycardia: Assessment and Plan: will start amiodarone drip per cardiology recommendations. Stop lasix, continue fluid replacement. check Trop, and mag level. continue metoprolol. Given lovenox this morning, start eliquis 2.5mg BID. Due to patient's worsening condition was made inpatient status. (2) Atrial fibrillation with RVR: Assessment and Plan: converted so cardizem was stopped, increased metoprolol 75mg daily. now with problem #1, Echo pending (3) ROBERTO (acute kidney injury): Assessment and Plan: we'll place on really renally dosed medications and monitor daily pending has improved this morning. (4) Dehydration: Assessment and Plan: continue with LR at 50 mL/h (5) GERD (gastroesophageal reflux disease): Assessment and Plan: continue PPI (6) HLD (hyperlipidemia): Assessment and Plan: continue statin, recheck lipids (7) HTN (hypertension): Assessment and Plan: continue home medications, adjust metoprolol (8) Liver cirrhosis, alcoholic: Assessment and Plan: LFTs within normal range, still with high alkaline phosphatase but no acute pain (9) CAD (coronary artery disease): Assessment and Plan: continue statin (10) Insomnia: Assessment and Plan: continue ambien (11) General weakness: Assessment and Plan: multi-factorial, pt/ot, afib with rvr, deconditioning, dehydration, would benefit from a rolling walker for stability prescription has been provided Plan patient is a DNRCCA therapeutic lovenox switch to eliquis today patient was in observation status but due to worsening condition will be switched to inpatient today, cardiology consult still ordered, echo still pending.
[2022-11-13] MEDS: AMIODARONE IN DEXTROSE,ISO-OSM 360 MG/200 ML PLAST..BAG 33.333 MG IV ×2 (13:13→18:45)
--- NOTE | 2022-11-13 14:24 | PC.NURSE ---
1412- messaged that HR remains elevated after 1 hour of drip, did elevate into 160 while standing at edge of bed.
--- NOTE | 2022-11-13 14:30 | SWNOTE1 ---
Pt is not discharging today. SW stopped back in to speak with pt to see if they have a prefernce on where the walker is from. Pt does not and he is alright with [facility] in [place]. SW sent referral.
[2022-11-13] MEDS: DIGOXIN 500 MCG/2 ML AMPUL 250 MCG IV (15:29)
[2022-11-13] MEDS: LACTATED RINGER'S SOLUTION 1,000 ML 500 ML IV (15:34)
[2022-11-13] MEDS: LACTATED RINGER'S SOLUTION 1,000 ML 200 ML IV ×3 (16:17→19:13)
[2022-11-13] MEDS: APIXABAN 5 MG TABLET 2.5 MG PO (21:52)
[2022-11-14] VITALS (55 sets, daily range): BP systolic 99–143; BP diastolic 55–89; PULSE 89–117; RESP 14–31; TEMP 36.9–37.2; O2SAT 94–97
[2022-11-14] MEDS: AMIODARONE IN DEXTROSE,ISO-OSM 360 MG/200 ML PLAST..BAG 33.333 MG IV ×2 (01:02→06:22)
[2022-11-14] MEDS: LACTATED RINGER'S SOLUTION 1,000 ML 200 ML IV ×4 (01:02→20:35)
[2022-11-14 05:11] LABS: Basophils Percent Auto 0.2 % (0.2-2.0); Eosinophils Absolute Auto 1.2 10^3/uL (0.0-0.7); Eosinophils Percent Auto 9.9 % (0.9-7.0); Hematocrit 32.5 % (42.0-54.0); Immature Granulocytes Abs Auto 0.08 10^3/uL (0.00-0.03); Immature Granulocytes Pct Auto 0.6 % (0.0-0.5); Lymphocytes Percent Auto 16.1 % (20.5-60.0); Mean Corpuscular HGB Conc 33.8 g/dL (29.9-35.2); Mean Corpuscular Hemoglobin 29.5 pg (25.9-34.0); Mean Corpuscular Volume 87.1 fL (80.0-94.0); Mean Platelet Volume 10.1 fL (9.5-13.5); Monocytes Absolute Auto 0.8 10^3/uL (0.3-0.8); Monocytes Percent Auto 6.5 % (1.7-12.0); Neutrophils Absolute Auto 8.3 10^3/uL (1.4-6.5); Neutrophils Percent Auto 66.7 % (43.0-75.0); Platelet Count 238 10^3/uL (150-450); Red Blood Count 3.73 10^6/uL (4.70-6.10); Red Cell Distribution Width 14.7 % (11.0-15.0); White Blood Count 12.4 10^3/uL (4.0-11.0)
[2022-11-14 05:29] LABS: Alanine Aminotransferase 30 U/L (16-63); Albumin Globulin Ratio 0.3; Albumin Level 1.5 g/dL (3.4-5.0); Alkaline Phosphatase 162 U/L (46-116); Aspartate Amino Transferase 20 U/L (15-37); BUN Creatinine Ratio 10.2; Bilirubin Total 0.4 mg/dL (0.2-1.0); Calcium 7.3 mg/dL (8.5-10.1); Carbon Dioxide 25.8 mmol/L (21.0-32.0); Chloride 101 mmol/L (98-107); Estimated GFR (African America >60 (>=60); Estimated GFR (Non-African Ame 54 (>=60); Globulin 5.3 g/dL; Glucose 102 mg/dL (74-106); Potassium 3.8 mmol/L (3.5-5.1); Sodium 133 mmol/L (136-145); Total Protein 6.8 g/dL (6.4-8.2)
[2022-11-14] MEDS: OMEPRAZOLE 40 MG CAPSULE.DR PO (06:22)
--- NOTE | 2022-11-14 08:34 | PM.PN ---
Progress Note: Subjective Subjective Interval history: patient was kept on amiodarone drip yesterday evening and throughout the night. Per cardiology recommendations a dose of digoxin 250 ?g ?1 was also given. Patient went from a supraventricular tachycardia, to a sinus tachycardia, and now is in a first-degree AV block with some PVCs. This morning the amiodarone drip was stopped and was placed on amiodarone 200 mg by mouth twice a day along with starting digoxin 125 ?g daily. Patient was continued on LR at 200 mL per hour. Normal electrolytes and CMP this morning and leukocytosis is improving. Normal magnesium, thyroid-stimulating hormone, troponin yesterday. Echocardiogram is still pending read. I have reached out to both Dr. Springer and [facility] cardiology for inpatient consultation today and recommendations for further plan of care. patient denies any current chest pain just says he feels very tired. No shortness of breath no cough no fevers. Bowels are still moving frequently, small amount of bright red blood with wiping but says he has bad hemorrhoids. No other issues or complaints on exam today Exam Narrative Exam Narrative: General: Patient is alert, and oriented to person, place and time with normal affect, proper hygiene Skin: scattered dermatitis on the legs, axilla Head: atraumatic, acephalic Eyes: PERRLA, no nystagmus present, conjunctiva clear, no scleral icterus Ears: normal gross auditory acuity Heart: Normal rate and rhythm, no murmurs/rubs/gallops Lungs: no audible wheezes, crackles and normal breath sounds all lung waddell Abdomen: Normal audible bowel sounds, no distension, No palpable masses, no organomegaly, no rebound/guarding/ or rigidity Musculoskeletal: no swelling bilateral lower extremities Neuro: CN II-X grossly intact, normal sensation upper and lower extremities Constitutional Vital Signs, click to edit/add: Last Vital Signs Temp 98.5 F 11/14/22 08:05 Pulse 89 11/14/22 08:05 Resp 16 11/14/22 08:05 BP 109/60 11/14/22 08:05 Pulse Ox 96 11/14/22 08:05 O2 Del Method Room Air 11/14/22 08:05 Progress Note: Objective Labs Labs: Short CBC 11/14/22 Range/Units 05:00 WBC 12.4 H (4.0-11.0) 10^3/uL Hgb 11.0 L (14.0-18.0) g/dL Hct 32.5 L (42.0-54.0) % Plt Count 238 (150-450) 10^3/uL BMP 11/14/22 05:00 Sodium 133 L Potassium 3.8 Chloride 101 Carbon Dioxide 25.8 BUN 13.0 Creatinine 1.27 Glucose 102 Calcium 7.3 L Liver Function 11/14/22 Range/Units 05:00 Total Bilirubin 0.4 (0.2-1.0) mg/dL AST 20 (15-37) U/L ALT 30 (16-63) U/L Alkaline Phosphatase 162 H (46-116) U/L Albumin 1.5 L (3.4-5.0) g/dL Progress Note: A&P Assessment and Plan (1) Sinus tachycardia: Assessment and Plan: will stop amiodarone drip per cardiology recommendations and start amiodarone 400mg daily but will place on 200mg BID. continue to hold/stop lasix, continue fluid replacement. Trop, and mag level and TSH and other electrolytes normal range. continue metoprolol. started on lovenox, but transitioned to eliquis 2.5mg BID. Due to patient's worsening condition was made inpatient status. (2) Atrial fibrillation with RVR: Assessment and Plan: converted so cardizem was stopped, increased metoprolol 75mg daily. now with problem #1, Echo pending read since 11/12/22 (3) ROBERTO (acute kidney injury): Assessment and Plan: place on really renally dosed medications and monitor daily pending has improved (4) Dehydration: Assessment and Plan: no signs of fluid overload, continue with LR @200cc/hr (5) GERD (gastroesophageal reflux disease): Assessment and Plan: continue PPI (6) HLD (hyperlipidemia): Assessment and Plan: continue statin (7) HTN (hypertension): Assessment and Plan: continue home medications, adjust metoprolol (8) Liver cirrhosis, alcoholic: Assessment and Plan: LFTs within normal range, still with high alkaline phosphatase but no acute pain, ERCP recently in [facility] was negative (9) CAD (coronary artery disease): Assessment and Plan: continue statin (10) Insomnia: Assessment and Plan: continue ambien (11) General weakness: Assessment and Plan: multi-factorial, pt/ot, afib with rvr, deconditioning, dehydration, would benefit from a rolling walker for stability prescription has been provided Plan patient is a DNRCCA therapeutic lovenox switched to eliquis patient inpatient status, cardiology consult still ordered, echo still pending.
[2022-11-14] MEDS: METOPROLOL SUCCINATE 25 MG TAB.ER.24H 75 MG PO (09:02)
[2022-11-14] MEDS: POTASSIUM CHLORIDE 10 MEQ ER TABLET 20 MEQ PO ×2 (09:02→20:36)
[2022-11-14] MEDS: APIXABAN 5 MG TABLET 2.5 MG PO (09:02)
[2022-11-14] MEDS: TAMSULOSIN HCL 0.4 MG CAPSULE PO (09:02)
[2022-11-14] MEDS: CETIRIZINE HCL 10 MG TABLET PO (09:03)
[2022-11-14] MEDS: ATORVASTATIN CALCIUM 20 MG TABLET 40 MG PO (09:03)
[2022-11-14] MEDS: AMIODARONE HCL 200 MG TABLET PO ×2 (09:03→20:36)
[2022-11-14] MEDS: DIGOXIN 125 MCG TABLET PO ×2 (09:13→20:36)
--- NOTE | 2022-11-14 09:35 | SWNOTE1 ---
SW called [facility] and they voiced they did not receive referral for a walker. SW re-sent referral.
--- NOTE | 2022-11-14 10:24 | CM.NOTE ---
Rounds made with Dr. Vazquez. Dr. Vazquez will discuss care with Dr. Springer and have the in-house [employer] Ass[employer] see Mr. Rasmussen today. No plan for discharge today.
--- NOTE | 2022-11-14 12:09 | SWNOTE1 ---
SW called [facility] and they received referral for walker. They would like for pt's to call them or patient so they can arrange pickle processor. SW called as she was not in pt's room. ROSITA spoke with her and gave her the phone number for [facility].
--- NOTE | 2022-11-14 12:15 | PT.DAILY ---
Physical Therapy Daily Note PT Daily Note/Assess Start: 11/13/22 11:34 Freq: Status: Active Protocol: Document 11/14/22 12:06 TAWANDA (Rec: 11/14/22 12:15 TAWANDA [id number]) Physical Therapy Daily Note/Assessment Time In/Time Out Time In 10:36 Time Out 11:12 Pain In Pain N/A Pain Out Pain N/A Subjective Subjective Pt supine upon arrival. Agrees to PT. Feels pretty tired today but HR has been stable - Nursing OKs session. Therapeutic Exercise Time Therapeutic Exercise Minutes (minutes) 5 Therapeutic Exercise Units 0 Therapeutic Exercise Treatment Therapeutic Exercise Treatment Seated Ap, LAQ, marches and add squeezes while sitting EOB unsupported 10x ea Therapeutic Activity Time Therapeutic Activity Minutes (minutes) 23 Therapeutic Activity Units 2 Therapeutic Activity Treatment Bed Mobility Ability Moderate Assist Chair Transfer Ability Minimum Assist Therapeutic Activity Comments Supine>sit ModA. Sits EOB 5 min for seated ex without LOB. Sit>stand Rupert to RW. Pt amb in room 30' with RW, CGA with assist for IV pole. Pt demonstrates slow debo with gait. Pt has bowel movement on his way to restroom. Pt sits on toilet while he is cleaned up and gown is changed . Pt attempts to perform his own pericare but unable to get completely clean. Sit>stand from toilet using grab bars CGA. Static standing with 1 UE on grab bar while therapist cleans him up and pull up donned- 2 min. Pt amb back to bed 30' with RW, CGA with slow debo. Need ModA to advance LEs into bed and then shift upper body over. Pt remains supine with call light in reach and needs met. Total Physical Therapy Time Total Therapy Minutes 28 Total Physical Therapy Units 2 Summary Daily Note Summary Nursing notified of urgent bowel. Cont to requires increased assistance for bed mobility. Slow with gait but steady using RW. Very easily fatigued with activity.
--- NOTE | 2022-11-14 12:25 | SWNOTE1 ---
Updates sent to Replaced By [facility], no plan of discharge today.
--- NOTE | 2022-11-14 16:10 | PM.CACN ---
History of Present Illness History of Present Illness Consult date: 11/14/22 Requesting physician: Elena Vazquez Consult reason: atrial fibrillation Chief complaint: WEAKNESS, ATRIAL FIBRILLATION WITH RVR Narrative: Mr. Rasmussen is an 87-year-old gentleman with past medical history including atrial fibrillation s/p SHRUTHI surgical ligation, CAD s/p PCI of LAD, hypertension, asthma, hyperlipidemia and GERD. Patient presented to the hospital with complaints of generalized weakness. He was noted to be in atrial fibrillation with RVR (rates 170s). Patient was initially started on a Cardizem drip and cardioverted into normal sinus rhythm. Subsequently, he went into a brief run of SVT, he was started on amiodarone and digoxin. Patient was interviewed and examined. Currently, he states that he feels better. He tells me that his presenting complaint was overall fatigue. He adamantly denies any chest pain. He denies any shortness of breath. He does endorse some lower extremity edema, but states that that is improving. He denies any orthopnea or paroxysmal nocturnal dyspnea. No additional complaints or concerns at the present time. Patient is accompanied by his who corroborates his story. Review of Systems ROS Status of ROS 10 or more systems reviewed and unremarkable except as noted in history and below [facility] Medical History Surgical History Family History Mother Family history of CHF (congestive heart failure) Family history of hypertension Family history of myocardial infarction Father Family history of cancer Sister Family history of cancer Social History Within the past year, how often did you have a drink containing alcohol: never Score interpretation: A score less than 4 is consistent with normal alcohol consumption. Smoking status: Former smoker Non-prescribed substance use: denies use Previous occupational history: retired Highest level of school completed/degree received: Associate degree: occupational, technical, vocational program Are you now , , , , never or living with a partner: In a typical week, how many times do you talk on the telephone with family, friends, or neighbors: 3 or more times per week How often do you get together with friends or relatives: 3 or more times per week How often do you attend adventist or cheondoism services: 4 or more times per year Little interest or pleasure in doing things: not at all Feeling down, depressed, or hopeless: not at all Feel stressed/tense/nervous/anxious/difficulty sleeping: not at all Do you think of yourself as: straight/heterosexual Gender Identity: male Meds Home Medications and Allergies Home Medications Medication Instructions Recorded Confirmed Type atorvastatin 20 mg tablet 40 mg PO DAILY 10/23/22 11/12/22 History cetirizine 10 mg tablet 10 mg PO DAILY 10/23/22 11/12/22 History furosemide 40 mg tablet 40 mg PO DAILY 10/23/22 11/12/22 History metoprolol succinate 50 mg 50 mg PO DAILY 10/23/22 11/12/22 History tablet,extended release 24 hr potassium chloride 10 mEq 20 meq PO BID 10/23/22 11/12/22 History tablet,extended release acetaminophen 325 mg tablet (Aphen) 650 mg PO Q6H PRN fever or pain 10/24/22 11/12/22 History diazepam 5 mg tablet 5 mg PO Q8H PRN anxiety 10/24/22 11/12/22 History diphenhydramine HCl 25 mg capsule 25 mg PO DAILY 10/24/22 11/12/22 History (Benadryl) tamsulosin 0.4 mg capsule 0.4 mg PO Q24H 10/24/22 11/12/22 History zolpidem 10 mg tablet 10 mg PO BEDTIME PRN sleep 10/24/22 11/12/22 History ondansetron HCl 4 mg tablet 4 mg PO Q8H PRN nausea and vomiting 10/27/22 11/12/22 History ascorbic acid (vitamin C) 1,000 mg 1 g PO DAILY 11/12/22 11/12/22 History tablet (C-1000) ipratropium bromide 42 mcg (0.06 2 spray intranasal TID 11/12/22 11/12/22 History %) nasal spray montelukast 10 mg tablet 10 mg PO QPM 11/12/22 11/12/22 History (Singulair) nitroglycerin 0.4 mg sublingual 0.4 mg sublingual Q5M 11/12/22 11/12/22 History tablet pantoprazole 40 mg tablet,delayed 40 mg PO QAM 11/12/22 11/12/22 History release (Protonix) vitamin B complex PO 11/12/22 History Allergies Allergy/AdvReac Type Severity Reaction Status Date / Time lidocaine AdvReac Unknown Verified 11/12/22 09:41 tramadol [From Ultram] AdvReac Unknown Verified 11/12/22 09:41 novacaine AdvReac Unknown Uncoded 11/12/22 09:41 Exam Constitutional Vital Signs, click to edit/add: Last Vital Signs Temp 98.5 F 11/14/22 08:05 Pulse 94 H 11/14/22 14:20 Resp 16 11/14/22 12:24 BP 126/65 11/14/22 12:24 Pulse Ox 96 11/14/22 12:24 O2 Del Method Room Air 11/14/22 12:24 Common normals: no apparent distress and oriented x3 General appearance: frail appearing HENMT Common normals: normocephalic and head/scalp atraumatic Eye Common normals: PERRL and EOMs intact bilaterally Chest Common normals: palpation of chest normal Chest: symmetrical chest wall rise Respiratory Common normals: normal respiratory effort Effort & inspection: able to speak in complete sentences Auscultation: clear to auscultation bilaterally Cardio Common normals: regular rate, regular rhythm, S1 normal heart sound, S2 normal heart sound and no gallops Extremity Common normals: no clubbing, cyanosis or edema Neuro Common normals: oriented x3 and moves all extremities Psych Activity/motor behavior: appropriate eye contact Speech: normal speech Thought process: normal thought process Thought content: normal thought content Results Labs and Meds Lab results: Cardiac Enzymes 11/14/22 Range/Units 05:00 AST 20 (15-37) U/L CBC 11/14/22 Range/Units 05:00 WBC 12.4 H (4.0-11.0) 10^3/uL RBC 3.73 L (4.70-6.10) 10^6/uL Hgb 11.0 L (14.0-18.0) g/dL Hct 32.5 L (42.0-54.0) % Plt Count 238 (150-450) 10^3/uL Neut # (Auto) 8.3 H (1.4-6.5) 10^3/uL Lymph # (Auto) 2.0 (1.2-3.8) 10^3/uL [place] # (Auto) 0.8 (0.3-0.8) 10^3/uL Eos # (Auto) 1.2 H (0.0-0.7) 10^3/uL Baso # (Auto) 0.0 (0.0-0.1) 10^3/uL Comprehensive Metabolic Panel 11/14/22 Range/Units 05:00 Sodium 133 L (136-145) mmol/L Potassium 3.8 (3.5-5.1) mmol/L Chloride 101 (98-107) mmol/L Carbon Dioxide 25.8 (21.0-32.0) mmol/L BUN 13.0 (7.0-18.0) mg/dL Creatinine 1.27 (0.70-1.30) mg/dL Glucose 102 (74-106) mg/dL Calcium 7.3 L (8.5-10.1) mg/dL AST 20 (15-37) U/L ALT 30 (16-63) U/L Alkaline Phosphatase 162 H (46-116) U/L Total Protein 6.8 (6.4-8.2) g/dL Albumin 1.5 L (3.4-5.0) g/dL Intake and Output 11/14/22 11/14/22 11/14/22 07:59 15:59 23:59 Intake Total 6755.552 / 71061.770 2400 / 2400 Output Total 200 / 400 Balance 6555.552 / 30538.770 2400 / 2400 Intake: Other 3377.776 / 7655.385 1200 / 1200 IV 3377.776 / 7655.385 1200 / 1200 Amiodarone in Dextrose,Iso-Osm 377.776 / 562.219 200 / 200 360 mg In 200 ml @ 1 MG/MIN 33. 333 mls/hr IV Q6H PETE Rx#: [id number] Lactated Ringer's Solution 1, 3000 / 3493.333 1000 / 1000 000 ml @ 200 mls/hr IV .Q5H PETE Rx#:[id number] Output: Urine 200 / 400 Other: # Voids 1 1 # Bowel Movements 1 1 Imaging and Cardiology Echo: report reviewed Assessment and Plan Assessment and Plan (1) Sinus tachycardia: (2) Atrial fibrillation with RVR: (3) ROBERTO (acute kidney injury): (4) Dehydration: (5) GERD (gastroesophageal reflux disease): (6) HLD (hyperlipidemia): (7) HTN (hypertension): (8) Liver cirrhosis, alcoholic: (9) CAD (coronary artery disease): (10) Insomnia: (11) General weakness: Plan 87-year-old gentleman with past medical history including atrial fibrillation s/p SHRUTHI surgical ligation, CAD s/p PCI of LAD, hypertension, asthma, hyperlipidemia and GERD. Patient presented to the hospital with complaints of generalized weakness. He was noted to be in atrial fibrillation with RVR 1. Afib with RVR -on metoprolol, amiodarone, and digoxin at the present Would recommend discontinuing digoxin after next dose. Check digoxin level in the AM -Would recommend close monitoring with amiodarone given patient's chronic liver conditions and would avoid using long term care social worker if able -He is currently on Toprol 50 mg daily. He was previously on a higher dose but this had been weaned after his cryomaze. Would recommend uptitrating Toprol as able -He is s/p successful SHRUTHI surgical ligation. Given reports of blood streak in stool, would discontinue anticoagulation at this time as risks of anticoagulating outweigh benefits since patient has SHRUTHI ligation -EF preserved on most recent study. No acute abnormalities 2. CAD s/p PCI, no angina or anginal equivalents - Aspirin 81 mg daily. Continue atorvastatin and beta jaki 3. HTN -conitnue current medication regimen 4. HLD -Continue atorvastatin. Further recommendations/management as per primary team. Thank you for allowing up to participate in the care of your patient. Please do not hesitate to contact [facility] with any questions/concerns. Edin Pink MD [facility]
[2022-11-15] VITALS (100 sets, daily range): BP systolic 116–144; BP diastolic 65–79; PULSE 86–111; RESP 9–35; TEMP 36.4–37.2; O2SAT 91–95
[2022-11-15 04:51] LABS: Basophils Percent Auto 0.2 % (0.2-2.0); Eosinophils Absolute Auto 2.2 10^3/uL (0.0-0.7); Eosinophils Percent Auto 17.6 % (0.9-7.0); Hemoglobin 11.4 g/dL (14.0-18.0); Immature Granulocytes Abs Auto 0.08 10^3/uL (0.00-0.03); Immature Granulocytes Pct Auto 0.6 % (0.0-0.5); Lymphocytes Absolute Auto 1.9 10^3/uL (1.2-3.8); Mean Corpuscular HGB Conc 33.5 g/dL (29.9-35.2); Mean Corpuscular Hemoglobin 29.4 pg (25.9-34.0); Mean Corpuscular Volume 87.6 fL (80.0-94.0); Mean Platelet Volume 10.2 fL (9.5-13.5); Monocytes Absolute Auto 0.8 10^3/uL (0.3-0.8); Monocytes Percent Auto 6.2 % (1.7-12.0); Neutrophils Absolute Auto 7.5 10^3/uL (1.4-6.5); Neutrophils Percent Auto 60.4 % (43.0-75.0); Platelet Count 264 10^3/uL (150-450); Red Blood Count 3.88 10^6/uL (4.70-6.10); Red Cell Distribution Width 14.8 % (11.0-15.0); White Blood Count 12.4 10^3/uL (4.0-11.0)
[2022-11-15 05:10] LABS: Alanine Aminotransferase 26 U/L (16-63); Albumin Globulin Ratio 0.3; Albumin Level 1.5 g/dL (3.4-5.0); Alkaline Phosphatase 154 U/L (46-116); Anion Gap 12.3; Aspartate Amino Transferase 21 U/L (15-37); BUN Creatinine Ratio 8.4; Bilirubin Total 0.5 mg/dL (0.2-1.0); Calcium 7.6 mg/dL (8.5-10.1); Carbon Dioxide 23.7 mmol/L (21.0-32.0); Chloride 102 mmol/L (98-107); Estimated GFR (African America >60 (>=60); Estimated GFR (Non-African Ame 58 (>=60); Globulin 5.6 g/dL; Glucose 86 mg/dL (74-106); Sodium 134 mmol/L (136-145); Total Protein 7.1 g/dL (6.4-8.2)
[2022-11-15 05:12] LABS: Digoxin 0.9 ng/mL (0.9-2.0)
[2022-11-15] MEDS: OMEPRAZOLE 40 MG CAPSULE.DR PO (05:19)
[2022-11-15] MEDS: LACTATED RINGER'S SOLUTION 1,000 ML 200 ML IV (05:19)
[2022-11-15] MEDS: ATORVASTATIN CALCIUM 20 MG TABLET 40 MG PO (08:45)
[2022-11-15] MEDS: METOPROLOL SUCCINATE 25 MG TAB.ER.24H 75 MG PO (08:46)
[2022-11-15] MEDS: POTASSIUM CHLORIDE 10 MEQ ER TABLET 20 MEQ PO ×2 (08:46→21:11)
[2022-11-15] MEDS: AMIODARONE HCL 200 MG TABLET PO ×2 (08:46→21:11)
[2022-11-15] MEDS: TAMSULOSIN HCL 0.4 MG CAPSULE PO (08:46)
[2022-11-15] MEDS: CETIRIZINE HCL 10 MG TABLET PO (08:46)
--- NOTE | 2022-11-15 09:51 | PT.DAILY ---
Physical Therapy Daily Note PT Daily Note/Assess Start: 11/13/22 11:34 Freq: Status: Active Protocol: Document 11/15/22 09:15 BHARGAV (Rec: 11/15/22 09:50 BHARGAV [id number]) Physical Therapy Daily Note/Assessment Time In/Time Out Time In 09:15 Time Out 09:30 Pain In Pain N/A Pain Out Pain N/A Subjective Subjective Patient just up to chair with nursing. Patient reports is just too worn out from that little movement to do therapy right now, does agree to exercises. Therapeutic Exercise Time Therapeutic Exercise Minutes (minutes) 15 Therapeutic Exercise Units 1 Therapeutic Exercise Treatment Therapeutic Exercise Treatment Seated exercise B LE all planes 10 reps with motivation and encouragement to complete good movements and all reps asked. Patient dozing off during exericses. Therapeutic Activity Treatment Therapeutic Activity Comments Patient declined Sit to stand transfers due to fatigue at time of RX. Discussed with nursing and nursing reports made patient do stuff for self this morning, but patient is very slow moving, required mod assist with RW to stand, wouldn't pull brief up due to not being able to let go of walker. Total Physical Therapy Time Total Therapy Minutes 15 Total Physical Therapy Units 1 Summary Daily Note Summary Due to fatigue and weakness would recommend SNF at [place] vs , as very little activity is very fatiguing to patient. Concerns for patient's ability to care for self at home at this time.
--- NOTE | 2022-11-15 12:27 | P.IMPN_ITS ---
Progress Note: A&P Assessment and Plan (1) Atrial fibrillation with RVR: Assessment and Plan: In NSR now. Will d/c on Toprol and Amiodarone. No sig cardiac structural abnormality on 2D ECHO (2) ROBERTO (acute kidney injury): Assessment and Plan: likely pre renal. Resolved. Stop IVF. Encourage PO intake (3) Dehydration: Assessment and Plan: due to poor PO intake. Monitor (4) GERD (gastroesophageal reflux disease): Assessment and Plan: C/w PPI (5) HLD (hyperlipidemia): Assessment and Plan: c/w statin (6) HTN (hypertension): Assessment and Plan: BP stable. C/w home meds. (7) Liver cirrhosis, alcoholic: Assessment and Plan: Outpaitent f/u (8) CAD (coronary artery disease): Assessment and Plan: Stable CAD. (9) Insomnia: Assessment and Plan: c/w ambien (10) General weakness: Assessment and Plan: Generalized weakness, physical deconditioning due to repeated and prolonged hos pitalizations, poor PO intake. PT/OT eval. Patient requires assistance in walking, getting out of bed, and unstable on his feet when he is using a walker. Agreeable to go to rehab . (11) Intra-abdominal lymphadenopathy: Assessment and Plan: Suspect underlying lymphoproliferative disorder - will need outpatient hematology w/u (12) Leucocytosis: Assessment and Plan: Improved. no clinical evidence of infection. Likely a combination of dehydration plus possible underlying lymphoproliferative disorder. Internal Medicine - PN: Subj Subjective Interval history: Seen and examined. Doing well. In NSR. Still feels very weak,tired. Requires assistance to ambulate even while using a walker. Patient had initially refused PT and had voiced his preference to go home but after discussion with him - he is agreeable to go to rehab. Exam Constitutional Vital Signs, click to edit/add: Last Vital Signs Temp 97.9 F 11/15/22 11:49 Pulse 95 H 11/15/22 11:50 Resp 19 11/15/22 11:50 BP 117/65 11/15/22 11:19 Pulse Ox 95 11/15/22 04:07 O2 Del Method Room Air 11/15/22 08:00 Documenting provider has reviewed patient's vital signs: yes Common normals: no apparent distress and oriented x3 General appearance: cooperative HENMT Common normals: normocephalic and head/scalp atraumatic Head and scalp: normocephalic and atraumatic Eye Common normals: conjunctivae normal and no scleral icterus Conjunctiva: conjunctiva(e) normal Respiratory Common normals: normal respiratory effort and clear to auscultation bilaterally Effort & inspection: able to speak in complete sentences Auscultation: clear to auscultation bilaterally Cardio Common normals: regular rate, S1 normal heart sound and S2 normal heart sound Rate: regular rate Heart sounds: S1 normal and S2 normal GI Common normals: Normal to inspection, nondistended, normoactive bowel sounds present, soft to palpation, non-tender and no hepatosplenomegaly Palpation: soft and no hepatosplenomegaly Extremity Common normals: no clubbing, cyanosis or edema Neuro Common normals: oriented x3, moves all extremities and no focal motor deficits Psych Common normals: mental status grossly normal, denies hallucinations, denies homicidal ideation and denies suicidal ideation Internal Medicine - PN: Obj Da Labs Labs: Laboratory Results - last 24 hr 11/15/22 04:04 WBC 12.4 H RBC 3.88 L Hgb 11.4 L Hct 34.0 L MCV 87.6 MCH 29.4 MCHC 33.5 RDW 14.8 Plt Count 264 MPV 10.2 Neut % (Auto) 60.4 Lymph % (Auto) 15.0 L [place] % (Auto) 6.2 Eos % (Auto) 17.6 H Baso % (Auto) 0.2 Neut # (Auto) 7.5 H Lymph # (Auto) 1.9 [place] # (Auto) 0.8 Eos # (Auto) 2.2 H Baso # (Auto) 0.0 Abs Immat Gran (auto) 0.08 H Imm/Tot Granulo (auto) 0.6 H Sodium 134 L Potassium 4.0 Chloride 102 Carbon Dioxide 23.7 Anion Gap 12.3 BUN 10.0 Creatinine 1.19 Est GFR ( Amer) >60 Est GFR (Non-Af Amer) 58 L BUN/Creatinine Ratio 8.4 Glucose 86 Calcium 7.6 L Total Bilirubin 0.5 AST 21 ALT 26 Alkaline Phosphatase 154 H Total Protein 7.1 Albumin 1.5 L Globulin 5.6 Albumin/Globulin Ratio 0.3 Digoxin 0.9
[2022-11-16] VITALS (19 sets, daily range): BP systolic 117–126; BP diastolic 66–74; PULSE 85–99; RESP 14–18; TEMP 36.4–37; O2SAT 92–95
[2022-11-16] MEDS: OMEPRAZOLE 40 MG CAPSULE.DR PO (05:54)
[2022-11-16] MEDS: TAMSULOSIN HCL 0.4 MG CAPSULE PO (10:20)
[2022-11-16] MEDS: POTASSIUM CHLORIDE 10 MEQ ER TABLET 20 MEQ PO ×2 (10:21→21:30)
[2022-11-16] MEDS: METOPROLOL SUCCINATE 25 MG TAB.ER.24H 75 MG PO (10:21)
[2022-11-16] MEDS: AMIODARONE HCL 200 MG TABLET PO ×2 (10:22→21:29)
[2022-11-16] MEDS: ATORVASTATIN CALCIUM 20 MG TABLET 40 MG PO (10:22)
[2022-11-16] MEDS: CETIRIZINE HCL 10 MG TABLET PO (10:22)
--- NOTE | 2022-11-16 11:53 | P.IMPN_ITS ---
Progress Note: A&P Assessment and Plan (1) Atrial fibrillation with RVR: Assessment and Plan: In NSR now. Currently on Toprol and Amiodarone. No sig cardiac structural abnormality on 2D ECHO (2) ROBERTO (acute kidney injury): Assessment and Plan: likely pre renal. Resolved. (3) Dehydration: Assessment and Plan: due to poor PO intake. Monitor (4) GERD (gastroesophageal reflux disease): Assessment and Plan: C/w PPI (5) HLD (hyperlipidemia): Assessment and Plan: c/w statin (6) HTN (hypertension): Assessment and Plan: BP stable. C/w home meds. (7) Liver cirrhosis, alcoholic: Assessment and Plan: Outpaitent f/u (8) CAD (coronary artery disease): Assessment and Plan: Stable CAD. (9) Insomnia: Assessment and Plan: c/w ambien (10) General weakness: Assessment and Plan: Generalized weakness, physical deconditioning due to repeated and prolonged hospitalizations, poor PO intake. PT/OT eval. Patient requires assistance in walking, getting out of bed, and unstable on his feet when he is using a walker. Agreeable to go to rehab . (11) Intra-abdominal lymphadenopathy: Assessment and Plan: Suspect underlying lymphoproliferative disorder - will need outpatient hematology w/u (12) Leucocytosis: Assessment and Plan: Improved. no clinical evidence of infection. Likely a combination of dehydration plus possible underlying lymphoproliferative disorder. Internal Medicine - PN: Subj Subjective Interval history: Seen and examined. Doing well. No complaints to offer. Exam Constitutional Vital Signs, click to edit/add: Last Vital Signs Temp 97.6 F 11/16/22 05:20 Pulse 96 H 11/16/22 10:13 Resp 16 11/16/22 08:00 BP 123/74 11/16/22 10:22 Pulse Ox 93 L 11/16/22 05:20 O2 Del Method Room Air 11/16/22 05:20 Documenting provider has reviewed patient's vital signs: yes Common normals: no apparent distress and oriented x3 General appearance: cooperative [facility] Common normals: normocephalic and head/scalp atraumatic Head and scalp: normocephalic and atraumatic Eye Common normals: conjunctivae normal and no scleral icterus Conjunctiva: conjunctiva(e) normal Respiratory Common normals: normal respiratory effort and clear to auscultation bilaterally Effort & inspection: able to speak in complete sentences Auscultation: clear to auscultation bilaterally Cardio Common normals: regular rate, S1 normal heart sound and S2 normal heart sound Rate: regular rate Heart sounds: S1 normal and S2 normal GI Common normals: Normal to inspection, nondistended, normoactive bowel sounds present, soft to palpation, non-tender and no hepatosplenomegaly Palpation: soft and no hepatosplenomegaly Extremity Common normals: no clubbing, cyanosis or edema Neuro Common normals: oriented x3, moves all extremities and no focal motor deficits Psych Common normals: mental status grossly normal, denies hallucinations, denies homicidal ideation and denies suicidal ideation
[2022-11-16] MEDS: LIDOCAINE 4% TP (14:17)
[2022-11-17] VITALS (11 sets, daily range): BP systolic 114–121; BP diastolic 67–68; PULSE 80–90; RESP 16–18; TEMP 36.5–36.8; O2SAT 92–95
[2022-11-17] MEDS: OMEPRAZOLE 40 MG CAPSULE.DR PO (05:39)
[2022-11-17 06:08] LABS: Hematocrit 34.3 % (42.0-54.0); Hemoglobin 11.4 g/dL (14.0-18.0); Mean Corpuscular HGB Conc 33.2 g/dL (29.9-35.2); Mean Corpuscular Hemoglobin 29.1 pg (25.9-34.0); Mean Corpuscular Volume 87.5 fL (80.0-94.0); Mean Platelet Volume 11.1 fL (9.5-13.5); Platelet Count 294 10^3/uL (150-450); Red Blood Count 3.92 10^6/uL (4.70-6.10); Red Cell Distribution Width 15.1 % (11.0-15.0); White Blood Count 12.2 10^3/uL (4.0-11.0)
[2022-11-17 06:51] LABS: Eosinophils Absolute Manual 2.19 10^3/uL (0.00-0.70); Segmented Neut Absolute Manual 5.97 10^3/uL (1.4-6.5)
[2022-11-17 06:52] LABS: Monocytes Absolute Manual 1.46 10^3/uL (0.30-0.80)
[2022-11-17 06:53] LABS: Atypical Lymphocytes Abs Man 0.4; Lymphocytes Absolute Manual 2.19 10^3/uL (1.20-3.80)
[2022-11-17 06:54] LABS: Anisocytosis 1+
[2022-11-17 06:56] LABS: Alanine Aminotransferase 21 U/L (16-63); Albumin Globulin Ratio 0.2; Albumin Level 1.5 g/dL (3.4-5.0); Alkaline Phosphatase 146 U/L (46-116); Anion Gap 8.3; Aspartate Amino Transferase 18 U/L (15-37); BUN Creatinine Ratio 8.3; Bilirubin Total 0.5 mg/dL (0.2-1.0); Carbon Dioxide 24.9 mmol/L (21.0-32.0); Chloride 104 mmol/L (98-107); Estimated GFR (African America >60 (>=60); Estimated GFR (Non-African Ame 58 (>=60); Globulin 6.1 g/dL; Glucose 93 mg/dL (74-106); Potassium 4.2 mmol/L (3.5-5.1); Sodium 133 mmol/L (136-145); Total Protein 7.6 g/dL (6.4-8.2)
[2022-11-17] MEDS: ATORVASTATIN CALCIUM 20 MG TABLET 40 MG PO (08:45)
[2022-11-17] MEDS: AMIODARONE HCL 200 MG TABLET PO (08:49)
[2022-11-17] MEDS: POTASSIUM CHLORIDE 10 MEQ ER TABLET 20 MEQ PO (08:50)
[2022-11-17] MEDS: CETIRIZINE HCL 10 MG TABLET PO (08:50)
[2022-11-17] MEDS: TAMSULOSIN HCL 0.4 MG CAPSULE PO (08:50)
[2022-11-17] MEDS: METOPROLOL SUCCINATE 25 MG TAB.ER.24H 75 MG PO (08:50)
--- NOTE | 2022-11-17 10:39 | PT.DAILY ---
Physical Therapy Daily Note PT Daily Note/Assess Start: 11/13/22 11:34 Freq: Status: Active Protocol: Document 11/17/22 10:32 TAWANDA (Rec: 11/17/22 10:39 TAWANDA [id number]) Physical Therapy Daily Note/Assessment Time In/Time Out Time In 10:10 Time Out 10:20 Pain In Pain N/A Pain Out Pain N/A Subjective Subjective Pt standing in restroom with OT upon arrival. 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 Therapeutic Exercise Time Therapeutic Exercise Minutes (minutes) 3 Therapeutic Exercise Units 0 Therapeutic Exercise Treatment Therapeutic Exercise Treatment Bilat LE strengthening ex completion while sitting in BS chair after gait. Therapeutic Activity Time Therapeutic Activity Minutes (minutes) 10 Therapeutic Activity Units 1 Therapeutic Activity Treatment Chair Transfer Ability Standby Assistance Therapeutic Activity Comments Pt amb in guerra 75'x2 with 1x standing rest break. Slow debo noticed. Stable with RW. Remains in BS chair upon completion with call light in reach and needs met. Total Physical Therapy Time Total Therapy Minutes 13 Total Physical Therapy Units 1 Summary Daily Note Summary Improving gait endurance and tolerance with activity. HR does not exceed 95.
--- NOTE | 2022-11-17 11:23 | CM.NOTE ---
Rounds made with Dr. Lopez. Potential plan for discharge today to SNF.
--- NOTE | 2022-11-17 11:34 | SWNOTE1 ---
Pt is not able to go home. Pt needs rehab. ROSITA spoke with pt and in room. SW provided [email or web address] star rating list. Pt chose [facility] as first choice and [facility] as second. If pt gets accepted somewhere he is able to be dc today. ROSITA sent referral to [facility].
--- NOTE | 2022-11-17 12:07 | PM.IMPN1 ---
Progress Note: A&P Assessment and Plan (1) Atrial fibrillation with RVR: Assessment and Plan: In NSR. Currently on Toprol and Amiodarone. No sig cardiac structural abnormality on 2D ECHO (2) ROBERTO (acute kidney injury): Assessment and Plan: likely pre renal. Resolved. (3) Dehydration: Assessment and Plan: due to poor PO intake. Monitor (4) GERD (gastroesophageal reflux disease): Assessment and Plan: C/w PPI (5) HLD (hyperlipidemia): Assessment and Plan: c/w statin (6) HTN (hypertension): Assessment and Plan: BP stable. C/w home meds. (7) Liver cirrhosis, alcoholic: Assessment and Plan: Outpaitent f/u (8) CAD (coronary artery disease): Assessment and Plan: Stable CAD. (9) Insomnia: Assessment and Plan: c/w ambien (10) General weakness: Assessment and Plan: Generalized weakness, physical deconditioning due to repeated and prolonged hospitalizations, poor PO intake. PT/OT eval. Patient requires assistance in walking, getting out of bed, and unstable on his feet when he is using a walker. Agreeable to go to rehab . (11) Intra-abdominal lymphadenopathy: Assessment and Plan: Suspect underlying lymphoproliferative disorder - will need outpatient hematology w/u (12) Leucocytosis: Assessment and Plan: Improved. no clinical evidence of infection. Likely a combination of dehydration plus possible underlying lymphoproliferative disorder. Plan Awaiting approval from his insurance for short term rehab. Internal Medicine - PN: Subj Subjective Interval history: Seen and examined. Doing well. No complaints to offer. No overnight events. Exam Constitutional Vital Signs, click to edit/add: Last Vital Signs Temp 97.7 F 11/17/22 08:03 Pulse 83 11/17/22 09:53 Resp 16 11/17/22 08:03 BP 116/68 11/17/22 08:03 Pulse Ox 93 L 11/17/22 08:03 O2 Del Method Room Air 11/17/22 08:03 Documenting provider has reviewed patient's vital signs: yes Common normals: no apparent distress and oriented x3 General appearance: cooperative [facility] Common normals: normocephalic and head/scalp atraumatic Head and scalp: normocephalic and atraumatic Eye Common normals: conjunctivae normal and no scleral icterus Conjunctiva: conjunctiva(e) normal Respiratory Common normals: normal respiratory effort and clear to auscultation bilaterally Effort & inspection: able to speak in complete sentences Auscultation: clear to auscultation bilaterally Cardio Common normals: regular rate, S1 normal heart sound and S2 normal heart sound Rate: regular rate Heart sounds: S1 normal and S2 normal GI Common normals: Normal to inspection, nondistended, normoactive bowel sounds present, soft to palpation, non-tender and no hepatosplenomegaly Palpation: soft and no hepatosplenomegaly Extremity Common normals: no clubbing, cyanosis or edema Neuro Common normals: oriented x3, moves all extremities and no focal motor deficits Psych Common normals: mental status grossly normal, denies hallucinations, denies homicidal ideation and denies suicidal ideation Internal Medicine - PN: Obj Da Labs Labs: Laboratory Results - last 24 hr 11/17/22 05:02 WBC 12.2 H RBC 3.92 L Hgb 11.4 L Hct 34.3 L MCV 87.5 MCH 29.1 MCHC 33.2 RDW 15.1 H Plt Count 294 MPV 11.1 Seg Neuts % (Manual) 49.0 Lymphocytes % (Manual) 18.0 L Atypical Lymphs % (Man) 3.0 Monocytes % (Manual) 12.0 Eosinophils % (Manual) 18.0 H Basophils % (Manual) 0.0 L Neutrophils # (Manual) 5.97 Lymphocytes # (Manual) 2.19 Abs Atypical Lymphs Man 0.4 Monocytes # (Manual) 1.46 H Eosinophils # (Manual) 2.19 H Basophils # (Manual) 0.00 Anisocytosis 1+ Sodium 133 L Potassium 4.2 Chloride 104 Carbon Dioxide 24.9 Anion Gap 8.3 BUN 10.0 Creatinine 1.20 Est GFR ( Amer) >60 Est GFR (Non-Af Amer) 58 L BUN/Creatinine Ratio 8.3 Glucose 93 Calcium 8.0 L Total Bilirubin 0.5 AST 18 ALT 21 Alkaline Phosphatase 146 H Total Protein 7.6 Albumin 1.5 L Globulin 6.1 Albumin/Globulin Ratio 0.2
--- NOTE | 2022-11-17 12:39 | SWNOTE1 ---
Pt is accepted at [facility]. SW let nursing, doctor, and family know.
--- NOTE | 2022-11-17 12:59 | PM.DS1 ---
DS: Providers Provider Date of admission: 11/13/22 12:25 Primary care physician: DARREN BARAJAS Consults: 11/12/22 12:01 Occupational Therapy Eval and Treat Routine Reason for consultation: weakness Has provider been notified: No 11/12/22 12:06 Physical Therapy Eval and Treat Routine Reason for consultation: weakness Has provider been notified: No 11/12/22 12:13 Consult to Cardiology Routine Consulting Provider: Hospitalist Reason for consultation: established patient [facility], having afib with RVR Has provider been notified: No 11/12/22 12:55 Consult to Dietitian Routine Reason For Exam: weight loss Reason for consultation: screening, weight loss, loss of appetite Has provider been notified: No Attending physician on discharge: Shaikh Jessica Discharging clinician: Shaikh Jessica Anticipated date of discharge: 11/17/22 DS: Diagnosis Discharge Diagnosis (1) Atrial fibrillation with RVR: (2) ROBERTO (acute kidney injury): (3) Dehydration: (4) GERD (gastroesophageal reflux disease): (5) HLD (hyperlipidemia): (6) HTN (hypertension): (7) Liver cirrhosis, alcoholic: (8) CAD (coronary artery disease): (9) Insomnia: (10) General weakness: (11) Intra-abdominal lymphadenopathy: (12) Leucocytosis: DS: Summary Hospital Course Hospital Course: Patient presented with generalized weakness, faitgue - found to have Afib with RVR, Leukocytosis, ROBERTO. He was treated with IV fluids. ROBERTO resolved. His symptoms improved too but he continued to feel weak and tired and will bd discharged to rehab. For his Afib with RVR, he Initially converted to NSR with IV cardizem but then reverted back to Afib with RVR. He was then started on Amiodarone drip, later on transitioned to PO amiodarone after d/w Cardiology. Patient will f/u Cardiology as outpatient. Will d/c on 100 mg of Toprol and 400 mg Amiodarone. Stable for d/c Please refer to same day prgoress note for exam findings. Time Spent with Patient Time attestation: Total time spent providing and/or coordinating discharge services: Exam Constitutional Vital Signs, click to edit/add: Last Vital Signs Temp 97.7 F 11/17/22 08:03 Pulse 81 11/17/22 12:00 Resp 16 11/17/22 08:03 BP 116/68 11/17/22 08:03 Pulse Ox 93 L 11/17/22 08:03 O2 Del Method Room Air 11/17/22 08:03 DS: Data Data Completed and Pending Labs on day of discharge: Labs from last 24 hours 11/17/22 05:02 WBC 12.2 H RBC 3.92 L Hgb 11.4 L Hct 34.3 L MCV 87.5 MCH 29.1 MCHC 33.2 RDW 15.1 H Plt Count 294 MPV 11.1 Seg Neuts % (Manual) 49.0 Lymphocytes % (Manual) 18.0 L Atypical Lymphs % (Man) 3.0 Monocytes % (Manual) 12.0 Eosinophils % (Manual) 18.0 H Basophils % (Manual) 0.0 L Neutrophils # (Manual) 5.97 Lymphocytes # (Manual) 2.19 Abs Atypical Lymphs Man 0.4 Monocytes # (Manual) 1.46 H Eosinophils # (Manual) 2.19 H Basophils # (Manual) 0.00 Anisocytosis 1+ Sodium 133 L Potassium 4.2 Chloride 104 Carbon Dioxide 24.9 Anion Gap 8.3 BUN 10.0 Creatinine 1.20 Est GFR ( Amer) >60 Est GFR (Non-Af Amer) 58 L BUN/Creatinine Ratio 8.3 Glucose 93 Calcium 8.0 L Total Bilirubin 0.5 AST 18 ALT 21 Alkaline Phosphatase 146 H Total Protein 7.6 Albumin 1.5 L Globulin 6.1 Albumin/Globulin Ratio 0.2 Discharge Plan Discharge Condition: Good Discharge Medications: New amiodarone 200 mg tablet 200 mg PO BID Qty: 60 0RF Continued tamsulosin 0.4 mg capsule 0.4 mg PO Q24H diphenhydramine HCl [Benadryl] 25 mg capsule 25 mg PO DAILY acetaminophen [Aphen] 325 mg tablet 650 mg PO Q6H PRN (Reason: fever or pain) zolpidem 10 mg tablet 10 mg PO BEDTIME PRN (Reason: sleep) diazepam 5 mg tablet 5 mg PO Q8H PRN (Reason: anxiety) Patient Comments: last filled 05-26-22; 180 tablets for a 90 day supply ondansetron HCl 4 mg tablet 4 mg PO Q8H PRN (Reason: nausea and vomiting) pantoprazole [Protonix] 40 mg tablet,delayed release (DR/EC) 40 mg PO QAM montelukast [Singulair] 10 mg tablet 10 mg PO QPM vitamin B complex [Vitamin B Complex-100] See Rx Instructions .ROUTE .COMPLEX Rx Instructions: 1 tablet; Take one daily ascorbic acid (vitamin C) [C-1000] 1,000 mg tablet 1 g PO DAILY nitroglycerin 0.4 mg tablet, sublingual 0.4 mg sublingual Q5M Rx Instructions: do not exceed 3 doses per episode ipratropium bromide 42 mcg (0.06 %) spray,non-aerosol 2 spray intranasal TID Rx Instructions: administer into each nostril atorvastatin 20 mg tablet 40 mg PO DAILY cetirizine 10 mg tablet 10 mg PO DAILY potassium chloride 10 mEq tablet extended release 20 meq PO BID Patient Comments: Filled 540 tablets for a 90 day supply on 10-13-22 Changed metoprolol succinate 50 mg tablet extended release 24 hr 100 mg PO DAILY Qty: 0 0RF Discontinued furosemide 40 mg tablet 40 mg PO DAILY 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 Forms: Portal Instructions Follow Up Appointments: [facility] Briana johnson Nov 20 2022 @10:40. Dr Barajas Nov 24 2022 @ 4:15 PCP in one week
--- NOTE | 2022-11-17 13:48 | SWNOTE1 ---
Orders are in from doctor. ROSITA sent over dc summary and dc med rec. ROSITA completed HENS. ROSITA set up trips for 4:15-4:45 and notified nursing, pt/, and [place] of time.
--- NOTE | 2022-11-17 14:11 | SWNOTE1 ---
SW reviewed Important Message from Medicare form with pt and in room. Pt and had no questions at this time. Pt's signed form, original given to and copy placed in chart.
== END 2022-11-17 16:55 | DRG 309 ==
LOC: ER 11:45 → ICU 11-13 13:19 → MS 11-15 14:05
PROVIDERS: Admitting Provider Family Medicine; Emergency Provider Emergency Medicine; PCP Internal Medicine; Visit Provider Internal Medicine
DX: I48.91 Unspecified atrial fibrillation (principal); N17.9 Acute kidney failure, unspecified; Z66 Do not resuscitate; E86.0 Dehydration; I47.10 Supraventricular tachycardia, unspecified; I44.30 Unspecified atrioventricular block; I10 Essential (primary) hypertension; I25.10 Atherosclerotic heart disease of native coronary artery without angina pectoris; E78.5 Hyperlipidemia, unspecified; K70.30 Alcoholic cirrhosis of liver without ascites; K21.9 Gastro-esophageal reflux disease without esophagitis; J45.909 Unspecified asthma, uncomplicated; G47.00 Insomnia, unspecified; N40.0 Benign prostatic hyperplasia without lower urinary tract symptoms; D72.829 Elevated white blood cell count, unspecified; R53.1 Weakness; R59.0 Localized enlarged lymph nodes; Z82.49 Family history of ischemic heart disease and other diseases of the circulatory system; Z80.9 Family history of malignant neoplasm, unspecified; Z87.891 Personal history of nicotine dependence; Z79.899 Other long term (current) drug therapy; Z88.4 Allergy status to anesthetic agent; Z88.5 Allergy status to narcotic agent
CPT/HCPCS: 36415; 71045; 80048; 80053; 80061; 80076; 80162; 81001; 82948; 83036; 83735; 83880; 84443; 84484; 85025; 85027; 85610; 85730; 93005; 93308; 94761; 96361; 96365; 96366; 96367; 96372; 96375; 96376; 97110; 97161; 97165; 97530; 97535; 99285; G0378

== ENCOUNTER 2023-01-06 13:35 | Outpatient (OUT) | payer MEDICARE, OTHER, SELFPAY ==
[2023-01-06 15:35] LABS: Alanine Aminotransferase 39 U/L (16-63); Albumin Globulin Ratio 0.4; Albumin Level 2.7 g/dL (3.4-5.0); Alkaline Phosphatase 160 U/L (46-116); Anion Gap 11.3; Aspartate Amino Transferase 33 U/L (15-37); BUN Creatinine Ratio 12.7; Bilirubin Total 0.5 mg/dL (0.2-1.0); Calcium 8.4 mg/dL (8.5-10.1); Carbon Dioxide 29.6 mmol/L (21.0-32.0); Chloride 103 mmol/L (98-107); Estimated GFR (African America >60 (>=60); Estimated GFR (Non-African Ame 54 (>=60); Globulin 6.5 g/dL; Glucose 92 mg/dL (74-106); Potassium 3.9 mmol/L (3.5-5.1); Sodium 140 mmol/L (136-145); Total Protein 9.2 g/dL (6.4-8.2)
== END 2023-01-06 13:36 | disposition home or self-care (01) ==
LOC: LAB 13:38
PROVIDERS: PCP Internal Medicine; Visit Provider Nurse Practitioner Acute Care
DX: I48.0 Paroxysmal atrial fibrillation (principal)
CPT/HCPCS: 36415; 80053

== ENCOUNTER 2023-07-15 10:53 | Outpatient (OUT) | payer MEDICARE, OTHER, SELFPAY ==
[2023-07-15 11:13] LABS: Basophils Percent Auto 0.4 % (0.2-2.0); Eosinophils Absolute Auto 0.4 10^3/uL (0.0-0.7); Hematocrit 40.1 % (42.0-54.0); Hemoglobin 13.2 g/dL (14.0-18.0); Immature Granulocytes Abs Auto 0.02 10^3/uL (0.00-0.03); Immature Granulocytes Pct Auto 0.3 % (0.0-0.5); Lymphocytes Absolute Auto 2.3 10^3/uL (1.2-3.8); Lymphocytes Percent Auto 32.3 % (20.5-60.0); Mean Corpuscular HGB Conc 32.9 g/dL (29.9-35.2); Mean Corpuscular Hemoglobin 30.3 pg (25.9-34.0); Mean Platelet Volume 9.9 fL (9.5-13.5); Monocytes Absolute Auto 0.7 10^3/uL (0.3-0.8); Monocytes Percent Auto 9.6 % (1.7-12.0); Neutrophils Absolute Auto 3.7 10^3/uL (1.4-6.5); Neutrophils Percent Auto 52.4 % (43.0-75.0); Platelet Count 235 10^3/uL (150-450); Red Blood Count 4.36 10^6/uL (4.70-6.10); Red Cell Distribution Width 13.7 % (11.0-15.0)
--- OUTSIDE RECORDS SUMMARY | 2023-07-15 11:16 | XMS_ITS | CCD ---
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 Name Role Phone JOSE TRINH Unavailable Unavailable NOLAN BAUTISTA II Unavailable Unavailable NOLAN BAUTISTA Primary Care Physician MICHELE, DR BANKS Admitting Unavailable BAUTISTA, DR BANKS Attending Unavailable BAUTISTA, DR BANKS Primary Care Unavailable BAUTISTA, DR BANKS Consulting Unavailable MISC, DR AGUIRRE Admitting Unavailable MISC, DR AGUIRRE Attending Unavailable MICHELE, DR BANKS Primary Care Unavailable MISC, DR AGUIRRE Consulting Unavailable ALE FAN Attending Unavailable [place] CreekAkbar mina Attending Unavailable ALE FAN Attending Unavailable Papa REYNA Attending Unavailable ENIX DEIDRE Referring Unavailable WITHSHARI LORENZANA Attending Unavailable FABIANO BRODY Referring Unavailable SHANEJENN Referring Unavailable HOBUD Guadalupe Referring Unavailable EFRAJORDYN Almanzar Admitting Unavailable EFRAJORDYN CARIAS Attending Unavailable WITHSHARI LORENZANA Attending Unavailable WITHSHARI LORENZANA Attending Unavailable NOLAN BAUTISTA Attending Unavailable VENECIA BROWNLEE Attending Unavailable NOLAN BAUTISTA Attending Unavailable Allergies Allergy Classification Reported Allergen(s) Allergy Type Date of Onset Reaction(s) Facility (5 sources) traMADol; Translations: [tramadol] Drug Allergy 7 Paranoid disorder (disorder) [facility] (1 source) Acetaminophen / oxyCODONE Drug Allergy 3 [facility] Repository (2 sources) Albuterol; Translations: [ALBUTEROL] Drug Allergy 3 [facility] (1 source) formoterol Drug Allergy [facility] (1 source) levoFLOXacin Drug Allergy 6 [facility] Repository (2 sources) Lidocaine; Translations: [LIDOCAINE] Drug Allergy 3 [facility] (1 source) oxyCODONE Drug Allergy [facility] (1 source) traMADol Drug Allergy 3 [facility] (2 sources) Ether; Translations: [ETHER] Drug allergy (disorder) 0 [facility] Repository (1 source) Acetaminophen / oxyCODONE; Translations: [OXYCODONE-ACETAM INOPHEN] Drug Allergy 7 [facility] Repository (1 source) Codeine / guaiFENesin; Translations: [CODEINE-GUAIFENE SIN] Drug Allergy 1 [facility] Repository (1 source) levoFLOXacin; Translations: [LEVOFLOXACIN] Drug Allergy 1 [facility] Repository (1 source) oxyCODONE; Translations: [OXYCODONE HCL] Drug Allergy 1 [facility] Repository Medications Current Medications Medication Drug Class(es) Dates Sig (Normalized) Sig (Original) acetaminophen 500 mg oral tablet (3 sources) Start: 03-05-2022 take 1 mg by mouth every six hours Tylenol Extra Strength 500 mg oral tablet mg tab(s), Oral, q6hr Start Date: 03/05/22 Status: Ordered atorvastatin 20 mg oral tablet (3 sources) HMG-CoA Reductase Inhibitor Start: 03-05-2022 take 1 mg by mouth once daily atorvastatin 20 mg Tab mg tab(s), Oral, Daily Start Date: 03/05/22 Status: Ordered cetirizine hydrochloride 10 mg oral tablet (3 sources) Histamine-1 Receptor Antagonist Start: 03-05-2022 take 1 mg by mouth once daily cetirizine 10 mg Tab mg tab(s), Oral, Daily Start Date: 03/05/22 Status: Ordered ciprofloxacin 500 mg oral tablet (1 source) Quinolone Antimicrobial Start: 03-14-2022 Cipro 500 mg Tab See Instructions, Take 1 tab the day prior to procedure and 1 tab day of procedure afterwards, # 2 tab(s), Refills(s) 0, Pharmacy: [id number], 217, cm, 03/05/22 14:43:00 EST, Height/Length Dosing, 94, kg, 03/05/22 14:43:00 EST, Weight... Start Date: 03/14/22 Status: Ordered diazePAM 5 mg oral tablet (3 sources) Benzodiazepine Start: 03-05-2022 take 1 mg by mouth every eight hours diazepam 5 mg Tab mg tab(s), Oral, q8hr Start Date: 03/05/22 Status: Ordered diphenhydrAMINE hydrochloride 25 mg oral capsule (3 sources) Histamine-1 Receptor Antagonist Start: 03-05-2022 take 1 mg by mouth every six hours Benadryl 25 mg Cap mg cap(s), Oral, q6hr Start Date: 03/05/22 Status: Ordered furosemide 40 mg oral tablet (3 sources) Loop Diuretic Start: 03-05-2022 take 1 mg by mouth once daily Lasix 40 mg Tab mg tab(s), Oral, Daily Start Date: 03/05/22 Status: Ordered Ipratropium (3 sources) Anticholinergic Start: 03-05-2022 Atrovent 0.03% [place] 2 spray(s), Nasal, TID, 30 mL Start Date: 03/05/22 Status: Ordered levalbuterol 2.5 mg/ml inhalation solution (3 sources) beta2-Adrenergic Agonist Start: 03-05-2022 levalbuterol 1.25 mg/0.5 mL Concentrate mg mL, NEB, TID Start Date: 03/05/22 Status: Ordered 24 hr metoprolol succinate 100 mg extended release oral tablet (3 sources) beta-Adrenergic Jaki Start: 03-05-2022 take 1 mg by mouth once daily metoprolol 100 mg ER Tab mg tab(s), Oral, Daily Start Date: 03/05/22 Status: Ordered montelukast 10 mg oral tablet (3 sources) Leukotriene Receptor Antagonist Start: 03-05-2022 take 1 mg by mouth once daily Singulair 10 mg Tab mg tab(s), Oral, Daily Start Date: 03/05/22 Status: Ordered nitroglycerin 0.4 mg/actuat mucosal spray (3 sources) Nitrate Vasodilator Start: 03-05-2022 nitroglycerin 0.4 mg SubL [place] mg spray(s), SubLingual, q5min Start Date: 03/05/22 Status: Ordered pantoprazole 40 mg delayed release oral tablet (3 sources) Proton Pump Inhibitor Start: 03-05-2022 take 1 mg by mouth once daily Protonix 40 mg Tab-DR mg tab(s), Oral, Daily Start Date: 03/05/22 Status: Ordered Potassium Chloride (3 sources) Start: 03-05-2022 Potassium Chloride (Wot-Zigh-Wzs 10) mEq, Oral, BID Start Date: 03/05/22 Status: Ordered tamsulosin hydrochloride 0.4 mg oral capsule (3 sources) alpha-Adrenergic Jaki Start: 03-05-2022 take 1 mg by mouth once daily Flomax 0.4 mg Cap mg cap(s), Oral, Daily Start Date: 03/05/22 Status: Ordered Vitamin B Complex oral capsule (3 sources) Start: 03-05-2022 Vitamin B Complex oral capsule Oral, Daily Start Date: 03/05/22 Status: Ordered Vitamin C 1000 mg oral tablet (3 sources) Start: 03-05-2022 take 1 mg by mouth once daily Vitamin C 1000 mg oral tablet mg tab(s), Oral, Daily Start Date: 03/05/22 Status: Ordered zolpidem tartrate 10 mg oral tablet (3 sources) gamma-Aminobutyric Acid-ergic Agonist Start: 03-05-2022 take 1 tablet by mouth once daily at bedtime as needed for sleep Ambien 10 mg Tab 10 mg = 1 tab(s), Oral, Once a day (at bedtime), PRN for sleep Start Date: 03/05/22 Status: Ordered Problems Active Problems Problem Classification Problem Date Documented Date Episodic/Chronic Acute myocardial infarction (3 sources) Myocardial infarction 02-24-2022 Chronic Alcohol-related disorders (3 sources) Alcohol dependence 03-05-2022 Chronic Biliary tract disease (3 sources) Chronic cholecystitis 02-24-2022 Episodic Cardiac dysrhythmias (5 sources) Atrial fibrillation; Translations: [Paroxysmal atrial fibrillation] Onset: 3 03-05-2022 Chronic Chronic obstructive pulmonary disease and bronchiectasis (3 sources) Chronic obstructive lung disease 02-24-2022 Chronic Congestive heart failure; nonhypertensive (5 sources) Congestive heart failure; Translations: [Chronic diastolic (congestive) heart failure] Onset: 3 02-24-2022 Chronic Coronary atherosclerosis and other heart disease (8 sources) Angina pectoris; 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] Onset: 3 02-24-2022 Chronic Disorders of lipid metabolism (5 sources) Hyperlipidemia; Translations: [Mixed hyperlipidemia] Onset: 3 02-24-2022 Chronic Diverticulosis and diverticulitis (3 sources) Diverticular disease 02-24-2022 Chronic Epilepsy; convulsions (3 sources) 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 Esophageal disorders (6 sources) Gastroesophageal reflux disease 02-24-2022 Chronic Esophageal disorders (3 sources) Esophagitis 02-24-2022 Episodic Genitourinary symptoms and ill-defined conditions (8 sources) Splitting of urinary stream; Translations: [Splitting of urinary stream] Onset: 3 Episodic Heart valve disorders (1 source) Rheumatic disorders of both mitral and tricuspid valves; Translations: [RHEUMATIC D/O MITRAL TRICUSPID VALV] Onset: 3 Chronic Heart valve disorders (3 sources) Heart murmur 03-05-2022 Episodic Hemorrhoids (3 sources) Hemorrhoids 02-24-2022 Episodic Hyperplasia of prostate (5 sources) Benign prostatic hypertrophy without outflow obstruction; Translations: [Benign prostatic hyperplasia without lower urinary tract symptoms] Onset: 3 Chronic Osteoarthritis (3 sources) Arthritis 02-24-2022 Chronic Other and ill-defined heart disease (3 sources) Heart disease 03-05-2022 Chronic Other lower respiratory disease (3 sources) Chronic cough 02-24-2022 Episodic Other screening for suspected conditions (not mental disorders or infectious disease) (6 sources) Abnormal electrocardiogram [ECG] [EKG]; Translations: [Other specified abnormal findings of blood chemistry] Onset: 3 Episodic Other skin disorders (3 sources) Multiple actinic keratoses 02-24-2022 Episodic Other upper respiratory disease (3 sources) Nasal discharge 02-24-2022 Episodic Residual codes; unclassified (3 sources) Insomnia 02-24-2022 Episodic Unclassified (3 sources) COUGH, UNSPECIFIED; Translations: [COUGH, UNSPECIFIED] Onset: 2 Unclassified (1 source) Thoracic aortic aneurysm, without rupture, unspecified; Translations: [Thoracic aortic aneurysm, without rupture, unspecified] Onset: 3 Viral infection (3 sources) Herpes zoster 02-24-2022 Episodic Viral infection (4 sources) Disease caused by 2019-nCoV; Translations: [COVID-19] Onset: 2 02-24-2022 Past or Other Problems Problem Classification Problem Date Documented Da te Episodic/Chronic Other upper respiratory infections (1 source) Acute pharyngitis, unspecified; Translations: [ACUTE PHARYNGITIS UNSPECIFIED] Onset: 11-13-2021 Episodic Unclassified (1 source) COUGH, UNSPECIFIED; Translations: [COUGH, UNSPECIFIED] Onset: 11-11-2021 Unclassified (1 source) Thoracic aortic aneurysm, without rupture, unspecified; Translations: [Thoracic aortic aneurysm, without rupture, unspecified] Onset: 06-16-2022 Results Test Name Value Interpretation Reference Range Facility Office Vis[facility] 01-06-2023 Follow-up visit [id number] Doreen Rasmussensheng vanessa L 1935 M Date Provider Department [place] 01/06/2023 [id number] TYSON ZHEN [facility] No family history on file Level of Service:05692 [place] OFFICE/OUTPATIENT ESTABLISHED MOD MDM 30-39 MIN [facility] Office Vis[facility] 11-21-2022 Follow-up visit [id number] Doreen Rasmussensheng od L 1935 M Date Provider Department Center 11/21/2022 [id number] [facility] No family history on file Level of Service:74928 [place] OFFICE/OUTPATIENT ESTABLISHED MOD MDM 30-39 MIN [facility] 30on 10-31-2022 30 Spoke with patient, patient is making PCP appointment and Patient would like to follow up with a testing tech that is closer to home, patient stated he is going to get his PCP to set him up with GI MD to follow up with, patient verbalizes understanding of these appointments and need to establish soon. Patient is going home with [facility]. AVS and DC order faxed through care port to [facility] 30 Daily Case Managemen t Update Multidisciplinary rounds have been completed. Barriers to Discharge: pending MRCP results and GI recs, home with [facility] on DC Diet: Dietary Orders (From admission, onward) Start Ordered 10/31/22 1032 Regular Diet Heart Healthy/HTN, CABG,Stroke, (2gNA, low fat, low cholesterol) Diet effective now Question Answer Comment Room Service? Yes Fat restriction: Heart Healthy/HTN, CABG,Stroke, (2gNA, low fat, low cholesterol) 10/31/22 1032 10/29/22 1719 Special Kitchen Request Once Comments: Please send chocolate boost 10/29/22 1718 Physician Expected Discharge Date: Discharge Delays: PT Six Click Score: OT Six Click Score: PT Recommendations: OT Recommendations: Does patient understand post acute plan of care? Yes Is expected discharge disposition appropriate for patient?: Yes New Consults: Consult Orders (From admission, onward) Start Ordered 10/28/22 1723 Inpatient consult to Dermatology Once Specialty: Dermatology Provider: (Not yet assigned) Question Answer Comment Consulting Group DERMATOLOGY TEAM Reason for Consult? rash Level of Consultation Consultation and Management 10/28/22 1723 Ancillary Consults (From admission, onward) Start Ordered 10/28/22 1452 Inpatient consult to Social Work Once Provider: (Not yet assigned) Question Answer Comment Select all services needed for the patient Home Health Types of Home Health Service needed Physical Therapy Types of Home Health Service needed Occupational Therapy Types of Home Health Service needed M[facility] Please indicate your approval for this care by adding your name here: VICTORINO GAMBOA 10/28/22 1451 Normal [facility] 30 The patient is Moderately Stable - Low risk of patient condition declining or worsening The patient's goals for the shift include discharge The clinical goals for the shift include discharge Problem: Pain - Adult Goal: Verbalizes/displays adequate comfort level or baseline comfort level Outcome: Progressing Problem: Safety - Adult Goal: Free from fall injury Outcome: Progressing Problem: Discharge Planning Goal: Discharge to home or other facility with appropriate resources Outcome: Progressing Normal [facility] BASIC METABOLIC PANELon 10-17 Anion gap [Moles/Vol] 10 mmol/L Normal - [facility] Comment on above: Performed By: #### L [id number] ####[facility] (BEAKER)[address] [place] [address] Calcium [Mass/Vol] 8.3 mg/dL Low 8.6-10.3 [facility] Comment on above: Performed By: #### L [id number] ####[facility] (BEAKER)[address] [place] [address] Chloride [Moles/Vol] 106 mmol/L Normal 98-107 [facility] Comment on above: Performed By: #### L [id number] ####[facility] (BEAKER)[address] [place] [address] CO2 [Moles/Vol] 25 mmol/L Normal 21-31 [facility] Comment on above: Performed By: #### L [id number] ####[facility] [place] [address] Creatinine [Mass/Vol] 0.95 mg/dL Normal 0.70-1.30 [facility] Comment on above: Performed By: #### L [id number] ####[facility] ([facility])[address] [place] [address] GLOMERULAR FILTRATION RATE ML/MIN/1.73 SQ M.PREDICTED 78.4 mL/min/1.73m*2 Normal >60.0 [facility] Comment on above: Result Comment: The [facility]???s estimated glomerular filtration rate (eGFR) will no longer include consideration of race in its calculation. The National Kidney Foundation???s eGFR Task Force developed new recommendations for the estimation of the glomerular filtration rate in the [place] They recommend immediate implementation of the new equation refit without the race variable in all laboratories because the calculation does not include race. In addition to not including race in the calculation and reporting, it included diversity in its development, and has acceptable performance characteristics and potential consequences that do not disproportionately affect any one group of individuals. Performed By: #### L [id number] ####[facility] [place] [address] Glucose [Mass/Vol] 84 mg/dL Normal 70-100 [facility] Comment on above: Performed By: #### L [id number] ####[facility] (BEAKER)[address] [place] [address] Potassium [Moles/Vol] 3.7 mmol/L Normal 3.5-5.1 [facility] Comment on above: Performed By: #### L [id number] ####[facility] ([facility])[address] [place] [address] Sodium [Moles/Vol] 137 mmol/L Normal 136-145 [facility] Comment on above: Performed By: #### L [id number] ####[facility] ([facility])[address] [place] [address] Urea nitrogen [Mass/Vol] 16 mg/dL Normal 7-25 [facility] Comment on above: Performed By: #### L [id number] ####[facility] ([facility])[address] [place] [address] UREA NITROGEN/CREATININE (MASS RATIO) IN SER/PLAS 16.8 Normal [facility] Comment on above: Performed By: #### L [id number] ####[facility] ([facility])[address] [place] [address] CBC WITH AUTO DIFFERENTIALon 10-31-2022 Basophils (Bld) [#/Vol] 0.08 10*3/uL Normal 0.00-0.20 [facility] Comment on above: Performed By: #### L [id number] ####[facility] ([facility])[address] [place] [address] Basophils/100 WBC (Bld) 0.6 % Normal 0.0-1.0 [facility] Comment on above: Performed By: #### L [id number] ####[facility] ([facility])[address] [place] [address] Eosinophils (Bld) [#/Vol] 0.78 10*3/uL High 0.00-0.50 [facility] Comment on above: Performed By: #### L [id number] ####[facility] ([facility])[address] [place] [address] Eosinophils/100 WBC (Bld) 6.1 % High 0.0-6.0 [facility] Comment on above: Performed By: #### L [id number] ####[facility] (BEAKER)[address] [place] [address] Erythrocyte distribution width (RBC) [Ratio] 15.9 % High 11.5-15.0 [facility] Comment on above: Performed By: #### L [id number] ####[facility] (BEAKER)[address] [place] [address] ERYTHROCYTE MEAN CORPUSCULAR HEMOGLOBIN CONCENTRATION (G/DL) BY AUTOMATED 34.0 g/dL Normal 32.0-35.0 [facility] Comment on above: Performed By: #### L [id number] ####[facility] ([facility])[address] [place], [place] [address] Hematocrit (Bld) [Volume fraction] 36.5 % Low 39.0-55.0 [facility] Comment on above: Performed By: #### L [id number] ####[facility] ([facility])[address] [place] [address] Hemoglobin (Bld) [Mass/Vol] 12.4 g/dL Low 13.0-17.0 [facility] Comment on above: Performed By: #### L [id number] ####[facility] ([facility])[address] [place], [place] [address] Immature granulocytes (Bld) [#/Vol] 0.29 10*3/uL High 0.00-0.20 [facility] Comment on above: Performed By: #### L [id number] ####[facility] ([facility])[address] [place] [address] Immature granulocytes/100 WBC (Bld) 2.3 % High 0.0-1.0 [facility] Comment on above: Performed By: #### L [id number] ####[facility] (BE[facility])[address] [place] [address] Lymphocytes (Bld) [#/Vol] 2.09 10*3/uL Normal 1.20-4.00 [facility] Comment on above: Performed By: #### L [id number] ####[facility] (BE[facility])[address] [place] [address] Lymphocytes/100 WBC (Bld) 16.3 % Low 20.0-45.0 [facility] Comment on above: Performed By: #### L [id number] ####[facility] [place] [address] MCH (RBC) [Entitic mass] 29.0 pg Normal 27.0-33.0 [facility] Comment on above: Performed By: #### L [id number] ####[facility])[address] [place] [address] MCV (RBC) [Entitic vol] 85.5 fL Normal 82.0-98.0 [facility] Comment on above: Performed By: #### L [id number] ####[facility] ([facility])[address] [place] [address] Monocytes (Bld) [#/Vol] 0.83 10*3/uL Normal 0.10-1.00 [facility] Comment on above: Performed By: #### L [id number] ####[facility] ([facility])[address] [place] [address] Monocytes/100 WBC (Bld) 6.5 % Normal 5.0-12.0 [facility] Comment on above: Performed By: #### L [id number] ####[facility] ([facility])[address] [place] [address] Neutrophils (Bld) [#/Vol] 8.73 10*3/uL High 1.60-7.60 [facility] Comment on above: Performed By: #### L [id number] ####[facility] ([facility])[address] [place] [address] Neutrophils/100 WBC (Bld) 68.2 % Normal 40.0-72.0 [facility] Comment on above: Performed By: #### L [id number] ####[facility] ([facility])[address] [place] [address] NRBC (PER 100 WBCS) BY AUTOMATED COUNT 0.0 % Normal 0 [facility] Comment on above: Performed By: #### L [id number] ####[facility] ([facility])[address] [place] [address] PLATELETS (10*3/UL) IN BLOOD AUTOMATED COUNT 328 10*3/uL Normal 150-400 [facility] Comment on above: Performed By: #### L [id number] ####[facility] ([facility])[address] [place] [address] RBC (Bld) [#/Vol] 4.27 10*6/uL Normal 4.20-5.70 [facility] Comment on above: Performed By: #### L [id number] ####[facility] ([facility])[address] [place] [address] WBC (Bld) [#/Vol] 12.80 10*3/uL High 4.00-10.60 [facility] Comment on above: Performed By: #### L [id number] ####[facility] ([facility])[address] [place] [address] HEPATIC FUNCTION PANELon Albumin [Mass/Vol] 2.7 g/dL Low 3.5-5.7 [facility] Comment on above: Performed By: #### L [id number] ####[facility] ([facility])[address] [place] [address] ALP [Catalytic activity/Vol] 231 U/L High 34-104 [facility] Comment on above: Performed By: #### L [id number] ####[facility] ([facility])[address] [place] [address] ALT [Catalytic activity/Vol] 90 U/L High 7-52 [facility] Comment on above: Performed By: #### L [id number] ####[facility] (BEAKER)[address] [place] [address] AST [Catalytic activity/Vol] 42 U/L High 13-39 [facility] Comment on above: Performed By: #### L [id number] ####[facility] ([facility])[address] [place] [address] Bilirubin [Mass/Vol] 0.7 mg/dL Normal 0.3-1.0 [facility] Comment on above: Performed By: #### L [id number] ####[facility] ([facility])[address] [place] [address] Magnesium [Mass/Vol] 0.2 mg/dL Normal 0-0.2 [facility] Comment on above: Performed By: #### L [id number] ####[facility] ([facility])[address] [place] [address] Protein [Mass/Vol] 6.8 g/dL Normal 6.0-8.3 [facility] Comment on above: Performed By: #### L [id number] ####[facility] ([facility])[address] [place] [address] LACTATE DEHYDROGENASEon 10-17 LACTATE DEHYDROGENASE (U/L) IN SER/PLAS BY LAC->PYR RXN 180 U/L Normal 140-271 [facility] Comment on above: Performed By: #### L [id number] ####[facility] ([facility])[address] [place] [address] ANTI-SMOOTH MUSCLE ANTIBODY TITERon 10-30-2022 SMOOTH MUSCLE AB, IGG TITER 1:160 High <1:20 [facility] Comment on above: Result Comment: INTE RPRETIVE INFORMATION: Smooth Muscle Ab, IgG Titer Less than 1:20 ........ Negative - No antibody detected. 1:20 - 1:80 .......... Weak Positive - Suggest repeat in two to three weeks with fresh specimen. 1:160 or greater ...... Positive - Suggestive of autoimmune hepatitis or chronic active hepatitis. Performed By: [facility] [address] [place] [id number] Broker[employer] Branch Manager: Sylvester Levine MD, PhD CLIA Number: [id number] Performed By: #### L [id number] ####[facility] ([facility])[address] [place] [address] ANTI-SMOOTH MUSCLE ANTIBODY, IGG WITH REFLEX TO TITERon 10-30-2022 SMOOTH MUSCLE ANTIBODY 90 Units High 0-19 [facility] Comment on above: Result Comment: REFE RENCE INTERVAL: F-Actin (Smooth Muscle) Antibody, IgG by JADON 19 Units or less ....... Negative 20 - 30 Units .......... Weak Positive-Suggest repeat testing in two to three weeks with fresh specimen. 31 Units or greater..... Positive-Suggestive of autoimmune hepatitis type 1 or chronic active hepatitis. F-actin IgG antibodies have been shown to have increased sensitivity for autoimmune hepatitis (AIH) but lower specificity than smooth muscle antibodies (SMA). F-actin IgG antibodies can also be seen in SMA-negative disease controls (non-AIH), especially in patients with primary biliary cirrhosis and chronic hepatitis C infections. Some patients with AIH may be SMA-positive but negative for F-actin IgG. Consider testing for SMA by IFA if suspicion for AIH is strong. Performed By: [facility] [address] [place] [id number] [employer]ker[employer] Branch Manager: Sylvester Levine MD, PhD CLIA Number: [id number] Performed By: #### L [id number] ####[facility] ([facility])[address] [place] [address] BASIC METABOLIC PANELon 10-17 Anion gap [Moles/Vol] 9 mmol/L Normal 7-20 [facility] Comment on above: Performed By: #### L [id number] ####[facility] ([facility])[address] [place] [address] Calcium [Mass/Vol] 8.3 mg/dL Low 8.6-10.3 [facility] Comment on above: Performed By: #### L [id number] ####[facility] ([facility])[address] [place] [address] Chloride [Moles/Vol] 107 mmol/L Normal 98-107 [facility] Comment on above: Performed By: #### L [id number] ####[facility] ([facility])[address] [place] [address] CO2 [Moles/Vol] 23 mmol/L Normal 21-31 [facility] Comment on above: Performed By: #### L [id number] ####[facility] ([facility])[address] [place] [address] Creatinine [Mass/Vol] 0.79 mg/dL Normal 0.70-1.30 [facility] Comment on above: Performed By: #### L [id number] ####[facility] ([facility])[address] [place] [address] GLOMERULAR FILTRATION RATE ML/MIN/1.73 SQ M.PREDICTED 87.1 mL/min/1.73m*2 Normal >60.0 [facility] Comment on above: Result Comment: The [facility]???s estimated glomerular filtration rate (eGFR) will no longer include consideration of race in its calculation. The National Kidney Foundation???s eGFR Task Force developed new recommendations for the estimation of the glomerular filtration rate in the [place] They recommend immediate implementation of the new equation refit without the race variable in all laboratories because the calculation does not include race. In addition to not including race in the calculation and reporting, it included diversity in its development, and has acceptable performance characteristics and potential consequences that do not disproportionately affect any one group of individuals. Performed By: #### L [id number] ####[facility] ([facility])[address] [place] [address] Glucose [Mass/Vol] 112 mg/dL High 70-100 [facility] Comment on above: Performed By: #### L [id number] ####[facility] ([facility])[address] [place] [address] Potassium [Moles/Vol] 4.3 mmol/L Normal 3.5-5.1 [facility] Comment on above: Performed By: #### L [id number] ####[facility] ([facility])[address] [place] [address] Sodium [Moles/Vol] 135 mmol/L Low 136-145 [facility] Comment on above: Performed By: #### L [id number] ####[facility] ([facility])[address] [place] [address] Urea nitrogen [Mass/Vol] 14 mg/dL Normal 7-25 [facility] Comment on above: Performed By: #### L [id number] ####[facility] ([facility])[address] [place] [address] UREA NITROGEN/CREATININE (MASS RATIO) IN SER/PLAS 17.7 Normal [facility] Comment on above: Performed By: #### L [id number] ####[facility] ([facility])[address] [place] [address] CBCon 10-30-2022 Erythrocyte distribution width (RBC) [Ratio] 15.6 % High 11.5-15.0 [facility] Comment on above: Performed By: #### L [id number] ####[facility] ([facility])[address] [place] [address] ERYTHROCYTE MEAN CORPUSCULAR HEMOGLOBIN CONCENTRATION (G/DL) BY AUTOMATED 33.7 g/dL Normal 32.0-35.0 [facility] Comment on above: Performed By: #### L [id number] ####[facility] ([facility])[address] [place] [address] Hematocrit (Bld) [Volume fraction] 35.9 % Low 39.0-55.0 [facility] Comment on above: Performed By: #### L [id number] ####[facility] ([facility])[address] [place] [address] Hemoglobin (Bld) [Mass/Vol] 12.1 g/dL Low 13.0-17.0 [facility] Comment on above: Performed By: #### L [id number] ####[facility] ([facility])[address] [place] [address] MCH (RBC) [Entitic mass] 29.0 pg Normal 27.0-33.0 [facility] Comment on above: Performed By: #### L [id number] ####[facility] ([facility])[address] [place] [address] MCV (RBC) [Entitic vol] 86.1 fL Normal 82.0-98.0 [facility] Comment on above: Performed By: #### L [id number] ####[facility] ([facility])[address] [place] [address] PLATELETS (10*3/UL) IN BLOOD AUTOMATED COUNT 270 10*3/uL Normal 150-400 [facility] Comment on above: Performed By: #### L [id number] ####[facility] ([facility])[address] [place] [address] RBC (Bld) [#/Vol] 4.17 10*6/uL Low 4.20-5.70 [facility] Comment on above: Performed By: #### L [id number] ####[facility] ([facility])[address] [place] [address] WBC (Bld) [#/Vol] 16.02 10*3/uL High 4.00-10.60 [facility] Comment on above: Performed By: #### L [id number] ####[facility] ([facility])[address] [place] [address] DERMATOPATHOLOGY EXAMon 10-17 LAB AP CASE REPORT Normal [facility] Comment on above: Order Comment: Diffu se erythematous nummular almost purpuric patches (some cindy, most no to minimal blanching) across the abdomen, lower chest, proximal thighs and slightly on proximal arms for 1 month. Few areas on the lower legs and dorsal feet (back mostly spared, not on neck or face). Non pruritic. No new medications Result Comment: Derm atopathology Case: [id number] Authorizing Provider: Beryl Neal MD Collected: 10/30/2022 1055 Ordering Location: [address] Urology Received: 10/31/2022 0773 Pathologist: Gege Lyons MD Specimen: Skin, Chest, left Performed By: #### L [id number] ####[facility] ([facility])[address] [place] [address] LAB AP CLINICAL INFORMATION Diffuse erythematous nummular almost purpuric patches (some cindy, most no to minimal blanching) across the abdomen, lower chest, proximal thighs and slightly on proximal arms for 1 month. Few areas on the lower legs and dorsal feet (back mostly spared, not on neck or face). Non pruritic. No new medications Normal [facility] Comment on above: Order Comment: Diffu se erythematous nummular almost purpuric patches (some cindy, most no to minimal blanching) across the abdomen, lower chest, proximal thighs and slightly on proximal arms for 1 month. Few areas on the lower legs and dorsal feet (back mostly spared, not on neck or face). Non pruritic. No new medications Performed By: #### L [id number] ####[facility] ([facility])[address] [place] [address] LAB AP DIAGNOSIS COMMENT The findings are non-specific. There is a sparse superficial perivascular dermatitis with melanophages that contain a tinge of melanin pigment. There is focal parakeratosis. These findings are most compatible with a resolving lesion. The differential diagnosis is broad and could include pigmented purpuric dermatosis, a spongiotic dermatitis or possibly an interface dermatitis. However, a definitive diagnosis cannot be rendered. Clinical correlation and biopsy of a more active lesion are recommended if clinically warranted. Normal [facility] Comment on above: Order Comment: Diffu se erythematous nummular almost purpuric patches (some cindy, most no to minimal blanching) across the abdomen, lower chest, proximal thighs and slightly on proximal arms for 1 month. Few areas on the lower legs and dorsal feet (back mostly spared, not on neck or face). Non pruritic. No new medications Performed By: #### L [id number] ####[facility] ([facility])[address] [place] [address] LAB AP GROSS DESCRIPTION A. Skin. Normal [facility] Comment on above: Order Comment: Diffu se erythematous nummular almost purpuric patches (some cindy, most no to minimal blanching) across the abdomen, lower chest, proximal thighs and slightly on proximal arms for 1 month. Few areas on the lower legs and dorsal feet (back mostly spared, not on neck or face). Non pruritic. No new medications Result Comment: Part A is received in formalin labeled Dc Rasmussen and left chest. It consists of a 0.4 x 0.4 x 0.4 cm unoriented farley skin punch. The epidermis is farley and wrinkled. No lesions are identified. The resection margin is inked green and the specimen is bisected to reveal farley-white homogeneous cut surfaces. The specimen is entirely submitted in 1 cassette. Sadiq Beard, [employer] Student Malick Sanchez, [employer] Performed By: #### L [id number] ####[facility] ([facility] [employer])[address] [place] [address] LAB AP MICROSCOPIC DESCRIPTION Sections of this punch biopsy of skin demonstrate and unremarkable epidermis except for a couple foci of parakeratosis. In the subjacent dermis, there is a sparse superficial perivascular and interstitial inflammatory infiltrate composed of lymphocytes, plasma cells, and abundant pale pigment-laden macrophages. Normal [facility] Comment on above: Order Comment: Diffu se erythematous nummular almost purpuric patches (some cindy, most no to minimal blanching) across the abdomen, lower chest, proximal thighs and slightly on proximal arms for 1 month. Few areas on the lower legs and dorsal feet (back mostly spared, not on neck or face). Non pruritic. No new medications Performed By: #### L [id number] ####[facility] ([employer])[address] [place] [address] LAB AP REPORT FINAL DIAGNOSIS NARRATIVE Normal [facility] Comment on above: Order Comment: Diffu se erythematous nummular almost purpuric patches (some cindy, most no to minimal blanching) across the abdomen, lower chest, proximal thighs and slightly on proximal arms for 1 month. Few areas on the lower legs and dorsal feet (back mostly spared, not on neck or face). Non pruritic. No new medications Result Comment: Skin , left chest, punch biopsy: - Sparse superficial perivascular dermatitis with pigment-laden macrophages - See comment Performed By: #### L [id number] ####[facility] ([employer])[address] [place] [address] Documentationon 10-30-2022 Documentation [id number] Nabil Rasmussen od 1935 M Date Provider Department Center 10/30/2022 BERYL MONIQUE [facility] DERM Samuel Heal No family history on file Reason for Visit and Comments: consultation [Other] - rash Normal [facility] HEPATIC FUNCTION PANELon Albumin [Mass/Vol] 2.7 g/dL Low 3.5-5.7 [facility] Comment on above: Performed By: #### L [id number] ####[facility] ([facility])[address] [place] [address] ALP [Catalytic activity/Vol] 248 U/L High 34-104 [facility] Comment on above: Performed By: #### L [id number] ####[facility] ([facility])[address] [place] [address] ALT [Catalytic activity/Vol] 115 U/L High 7-52 [facility] Comment on above: Performed By: #### L [id number] ####[facility] ([facility])[address] [place] [address] AST [Catalytic activity/Vol] 67 U/L High 13-39 [facility] Comment on above: Performed By: #### L [id number] ####[facility] ([facility])[address] [place] [address] Bilirubin [Mass/Vol] 0.8 mg/dL Normal 0.3-1.0 [facility] Comment on above: Performed By: #### L [id number] ####[facility] ([facility])[address] [place] [address] Magnesium [Mass/Vol] 0.4 mg/dL High 0-0.2 [facility] Comment on above: Performed By: #### L [id number] ####[facility] ([facility])[address] [place] [address] Protein [Mass/Vol] 6.7 g/dL Normal 6.0-8.3 [facility] Comment on above: Performed By: #### L [id number] ####[facility] ([facility])[address] [place] [address] HIV COMBO 4Gon 10-30-2022 HIV COMBO 4G Negative Normal Negative [facility] Comment on above: Performed By: #### L [id number] ####[facility] ([facility])[address] [place] [address] MR ABDOMEN W AND WO CONTRAST MRCPon 10-30-2022 MR ABDOMEN W AND WO CONTRAST MRCP Study: MRI abdomen with and without contrast and M.R.C.P. Clinical history: Elevated liver function tests. Comparison: Abdomen ultrasound 10/28/2022 Technique: Routine multiplanar multisequence MR imaging of the abdomen was performed prior to and following uneventful administration of 20 cc of Clariscan intravenous gadolinium contrast. M.R.C.P. was performed with 3-D volume rendered reformatted and maximum intesntiy projection rotational images for the evaluation of the pancreatic and biliary ductal system at the MR console under concurrent physician supervision. Findings: The patient had difficulty with breath holds in following commands and therefore significant patient respiratory motion artifact resulted lowering the sensitivity and diagnostic utility of the study. Bilateral pleural effusions. Subcentimeter cyst of the left hepatic lobe. No solid hepatic lesion demonstrated. Hepatic and portal veins are patent. MRCP images show no evidence of intrahepatic or extra hepatic bile duct dilatation. Pancreas, spleen and adrenal glands are within normal limits. Kidneys are only partially imaged however show no acute abnormality 3D reformatted images confirm the source data findings IMPRESSION: *Compromised exam due to significant motion artifact. Within the confines of this factor no evidence of biliary dilatation, hepatic mass or pancreatic pathology. Electronically signed: Kai Humphreys Normal [facility] PROTIME-INRon 10-30-2022 INR IN PPP BY COAGULATION ASSAY 1.20 High 0.90-1.10 [facility] Comment on above: Result Comment: ACCC P RECOMMENDED INR FOR WARFARIN THERAPY CONDITION INR PROPHYLAXIS OF VENOUS THROMBOSIS 2-3 (HIGH-RISK SURGERY) TREATMENT OF VENOUS THROMBOSIS 2-3 TREATMENT OF PULMONARY EMBOLISM 2-3 PREVENTION OF SYSTEMIC EMBOLISM: 2-3 ACUTE MYOCARDIAL INFARCTION TISSUE HEART VALVES VALVULAR HEART DISEASE ATRIAL FIBRILLATION RECURRENT SYSTEMIC EMBOLISM MECHANICAL HEART VALVE 2.5-3.5 FROM: ORAL ANTICOAGULANTS. MECHANISM OF ACTION, CLINICAL EFFECTIVENESS, AND OPTIMAL THERAPEUTIC RANGE. CHEST 1995;108:231S-246S. Performed By: #### L [id number] ####[facility] ([facility])[address] [place] [address] PROTHROMBIN TIME (PT) IN PPP BY COAGULATION ASSAY 15.3 Seconds High 12.3-14.8 [facility] Comment on above: Performed By: #### L [id number] ####[facility] ([facility])[address] [place] [address] 30on 10-29-2022 30 The patient is Moderately Stable - Low risk of patient condition declining or worsening The patient's goals for the shift include rest The clinical goals for the shift include VSS, rest Normal [facility] 30 Daily Case Managemen t Update Multidisciplinary rounds have been completed. Barriers to Discharge: patient to see Derm tomorrow at 9am, then possible DC tomorrow. Home with Jake Galan [facility] Diet: Dietary Orders (From admission, onward) Start Ordered 10/27/22 1549 Regular Diet Heart Healthy/HTN, CABG,Stroke, (2gNA, low fat, low cholesterol) Diet effective now Question Answer Comment Room Service? Yes Fat restriction: Heart Healthy/HTN, CABG,Stroke, (2gNA, low fat, low cholesterol) 10/27/22 1549 Physician Expected Discharge Date: Discharge Delays: PT Six Click Score: OT Six Click Score: PT Recommendations: OT Recommendations: Does patient understand post acute plan of care? Yes Is expected discharge disposition appropriate for patient?: Yes New Consults: Consult Orders (From admission, onward) Start Ordered 10/28/22 1723 Inpatient consult to Dermatology Once Specialty: Dermatology Provider: (Not yet assigned) Question Answer Comment Consulting Group DERMATOLOGY TEAM Reason for Consult? rash Level of Consultation Consultation and Management 10/28/22 1723 Ancillary Consults (From admission, onward) Start Ordered 10/28/22 1452 Inpatient consult to Social Work Once Provider: (Not yet assigned) Question Answer Comment Select all services needed for the patient Home Health Types of Home Health Service needed Physical Therapy Types of Home Health Service needed Occupational Therapy Types of Home Health Service needed Mcc Please indicate your approval for this care by adding your name here: VICTORINO GAMBOA 10/28/22 1451 Normal [facility] BASIC METABOLIC PANELon 10-17 Anion gap [Moles/Vol] 8 mmol/L Normal 7-20 [facility] Comment on above: Performed By: #### L [id number] ####[facility] ([facility])[address] [place] [address] Calcium [Mass/Vol] 8.2 mg/dL Low 8.6-10.3 [facility] Comment on above: Performed By: #### L [id number] ####[facility] ([facility])[address] [place] [address] Chloride [Moles/Vol] 108 mmol/L High 98-107 [facility] Comment on above: Performed By: #### L [id number] ####[facility] ([facility])[address] [place] [address] CO2 [Moles/Vol] 24 mmol/L Normal 21-31 [facility] Comment on above: Performed By: #### L [id number] ####[facility] ([facility])[address] [place] [address] Creatinine [Mass/Vol] 0.97 mg/dL Normal 0.70-1.30 [facility] Comment on above: Performed By: #### L [id number] ####[facility] ([facility])[address] [place] [address] GLOMERULAR FILTRATION RATE ML/MIN/1.73 SQ M.PREDICTED 76.5 mL/min/1.73m*2 Normal >60.0 [facility] Comment on above: Result Comment: The [facility]???s estimated glomerular filtration rate (eGFR) will no longer include consideration of race in its calculation. The National Kidney Foundation???s eGFR Task Force developed new recommendations for the estimation of the glomerular filtration rate in the [place] They recommend immediate implementation of the new equation refit without the race variable in all laboratories because the calculation does not include race. In addition to not including race in the calculation and reporting, it included diversity in its development, and has acceptable performance characteristics and potential consequences that do not disproportionately affect any one group of individuals. Performed By: #### L [id number] ####[facility] ([facility])[address] [place] [address] Glucose [Mass/Vol] 91 mg/dL Normal 70-100 [facility] Comment on above: Performed By: #### L [id number] ####[facility] ([facility])[address] [place] [address] Potassium [Moles/Vol] 3.3 mmol/L Low 3.5-5.1 [facility] Comment on above: Performed By: #### L [id number] ####[facility] ([facility])[address] [place] [address] Sodium [Moles/Vol] 137 mmol/L Normal 136-145 [facility] Comment on above: Performed By: #### L [id number] ####[facility] ([facility])[address] [place] [address] Urea nitrogen [Mass/Vol] 14 mg/dL Normal 7-25 [facility] Comment on above: Performed By: #### L [id number] ####[facility] ([facility])[address] [place] [address] UREA NITROGEN/CREATININE (MASS RATIO) IN SER/PLAS 14.4 Normal [facility] Comment on above: Performed By: #### L [id number] ####[facility] ([facility])[address] [place] [address] CBCon 10-29-2022 Erythrocyte distribution width (RBC) [Ratio] 15.7 % High 11.5-15.0 [facility] Comment on above: Performed By: #### L [id number] ####[facility] ([facility])[address] [place] [address] ERYTHROCYTE MEAN CORPUSCULAR HEMOGLOBIN CONCENTRATION (G/DL) BY AUTOMATED 35.0 g/dL Normal 32.0-35.0 [facility] Comment on above: Performed By: #### L [id number] ####[facility] ([facility])[address] [place] [address] Hematocrit (Bld) [Volume fraction] 35.4 % Low 39.0-55.0 [facility] Comment on above: Performed By: #### L [id number] ####[facility] ([facility])[address] [place] [address] Hemoglobin (Bld) [Mass/Vol] 12.4 g/dL Low 13.0-17.0 [facility] Comment on above: Performed By: #### L [id number] ####[facility] ([facility])[address] [place] [address] MCH (RBC) [Entitic mass] 29.6 pg Normal 27.0-33.0 [facility] Comment on above: Performed By: #### L [id number] ####[facility] ([facility])[address] [place] [address] MCV (RBC) [Entitic vol] 84.5 fL Normal 82.0-98.0 [facility] Comment on above: Performed By: #### L [id number] ####[facility] ([facility])[address] [place] [address] PLATELETS (10*3/UL) IN BLOOD AUTOMATED COUNT 266 10*3/uL Normal 150-400 [facility] Comment on above: Performed By: #### L [id number] ####[facility] ([facility])[address] [place] [address] RBC (Bld) [#/Vol] 4.19 10*6/uL Low 4.20-5.70 [facility] Comment on above: Performed By: #### L [id number] ####[facility] ([facility])[address] [place] [address] WBC (Bld) [#/Vol] 15.59 10*3/uL High 4.00-10.60 [facility] Comment on above: Performed By: #### L [id number] ####[facility] ([facility])[address] [place] [address] HEPATIC FUNCTION PANELon Albumin [Mass/Vol] 2.7 g/dL Low 3.5-5.7 [facility] Comment on above: Performed By: #### L [id number] ####[facility] ([facility])[address] [place] [address] ALP [Catalytic activity/Vol] 227 U/L High 34-104 [facility] Comment on above: Performed By: #### L [id number] ####[facility] ([facility])[address] [place] [address] ALT [Catalytic activity/Vol] 142 U/L High 7-52 [facility] Comment on above: Performed By: #### L [id number] ####[facility] ([facility])[address] [place] [address] AST [Catalytic activity/Vol] 155 U/L High 13-39 [facility] Comment on above: Performed By: #### L [id number] ####[facility] ([facility])[address] [place] [address] Bilirubin [Mass/Vol] 1.0 mg/dL Normal 0.3-1.0 [facility] Comment on above: Performed By: #### L [id number] ####[facility] ([facility])[address] [place] [address] Magnesium [Mass/Vol] 0.5 mg/dL High 0-0.2 [facility] Comment on above: Performed By: #### L [id number] ####[facility] ([facility])[address] [place] [address] Protein [Mass/Vol] 6.2 g/dL Normal 6.0-8.3 [facility] Comment on above: Performed By: #### L [id number] ####[facility] ([employer])[address] [place] [address] HEPATITIS A ANTIBODY, IGMon 10-29-2022 HEPATITIS A VIRUS IGM AB PRESENCE IN SER/PLAS Non-Reactive Normal Nonreactive [facility] Comment on above: Performed By: #### L [id number] ####[facility] ([facility])[address] [place] [address] PROTIME-INRon 10-29-2022 INR IN PPP BY COAGULATION ASSAY 1.34 High 0.90-1.10 [facility] Comment on above: Result Comment: ACCC P RECOMMENDED INR FOR WARFARIN THERAPY CONDITION INR PROPHYLAXIS OF VENOUS THROMBOSIS 2-3 (HIGH-RISK SURGERY) TREATMENT OF VENOUS THROMBOSIS 2-3 TREATMENT OF PULMONARY EMBOLISM 2-3 PREVENTION OF SYSTEMIC EMBOLISM: 2-3 ACUTE MYOCARDIAL INFARCTION TISSUE HEART VALVES VALVULAR HEART DISEASE ATRIAL FIBRILLATION RECURRENT SYSTEMIC EMBOLISM MECHANICAL HEART VALVE 2.5-3.5 FROM: ORAL ANTICOAGULANTS. MECHANISM OF ACTION, CLINICAL EFFECTIVENESS, AND OPTIMAL THERAPEUTIC RANGE. CHEST 1995;108:231S-246S. Performed By: #### L [id number] ####[facility] ([facility])[address] [place] [address] PROTHROMBIN TIME (PT) IN PPP BY COAGULATION ASSAY 16.6 Seconds High 12.3-14.8 [facility] Comment on above: Performed By: #### L [id number] ####[facility] ([facility]AK[facility])[address] [place] [address] 30on 10-28-2022 30 The patient is Moderately Stable - Low risk of patient condition declining or worsening The patient's goals for the shift include sleep The clinical goals for the shift include VSS, Blood cx, safety Normal [facility] 30 The patient is Moderately Stable - Low risk of patient condition declining or worsening The patient's goals for the shift include sleep The clinical goals for the shift include VSS, Blood cx, Normal [facility] 30 The patient is Moderately Stable - Low risk of patient condition declining or worsening The patient's goals for the shift include sleep The clinical goals for the shift include VSS, stable labs and safety Normal [facility] BLOOD CULTUREon 10-28-2022 Bacteria identified Cx Nom (Bld) No growth at 5 days Normal [facility] Comment on above: Performed By: #### L [id number] #### [facility] ([facility]) [address] [place] [address] Order Comment: From a different site than #1. Lab Reportson 10-28-2022 Lab Reports [id number]: 127 Normal [facility] Lab Reports [id number]: 127 Normal [facility] URINALYSIS MICROSCOPIC WITH REFLEX CULTUREon 10-28-2022 CASTS IN URINE Normal [facility] Comment on above: Performed By: #### L [id number] ####[facility] ([facility])[address] [place] [address] CRYSTALS IN URINE Normal [facility] Comment on above: Performed By: #### L [id number] ####[facility] ([facility])[address] [place] [address] MUCUS (#/HPF) IN URINE SEDIMENT Occasional Normal None Seen, Occasional, Few [facility] Comment on above: Performed By: #### L [id number] ####[facility] ([facility])[address] [place] [address] OTHER MICROSCOPIC ELEMENTS Normal [facility] Comment on above: Performed By: #### L [id number] ####[facility] ([facility])[address] [place] [address] RBC (#/HPF) IN URINE SEDIMENT 0-2 Abnormal None Seen [facility] Comment on above: Performed By: #### L [id number] ####[facility] ([facility])[address] [place] [address] SQUAMOUS EPITHELIAL CELLS (#/HPF) IN URINE SEDIMENT Few Abnormal None Seen, Occasional [facility] Comment on above: Performed By: #### L [id number] ####[facility] ([facility])[address] [place] [address] WBC (LEUKOCYTE) (#/HPF) IN URINE SEDIMENT 3-5 Abnormal None Seen [facility] Comment on above: Performed By: #### L [id number] ####[facility] ([facility])[address] [place] [address] URINALYSIS WITH REFLEX CULTU REon 10-28-2022 BILIRUBIN, TOTAL PRESENCE IN URINE Negative Normal Negative [facility] Comment on above: Performed By: #### L [id number] ####[facility] ([facility])[address] [place] [address] Clarity (U) Clear Normal Clear [facility] Comment on above: Performed By: #### L [id number] ####[facility] ([facility])[address] [place] [address] Color (U) Yellow Normal Yellow [facility] Comment on above: Performed By: #### L [id number] ####[facility] ([facility])[address] [place] [address] Glucose (U) [Mass/Vol] Negative Normal Negative [facility] Comment on above: Performed By: #### L [id number] ####[facility] [place] [address] HEMOGLOBIN PRESENCE IN URINE Small Abnormal Negative [facility] Comment on above: Performed By: #### L [id number] ####[facility] ([facility])[address] [place] [address] Ketones Ql (U) Trace Abnormal Negative [facility] Comment on above: Performed By: #### L [id number] ####[facility] ([facility])[address] [place] [address] LEUKOCYTE ESTERASE PRESENCE IN URINE BY TEST STRIP Trace Abnormal Negative [facility] Comment on above: Performed By: #### L [id number] ####[facility] ([facility])[address] [place] [address] NITRITE PRESENCE IN URINE Negative Normal Negative [facility] Comment on above: Performed By: #### L [id number] ####[facility] ([facility])[address] [place] [address] pH (U) 5.0 [pH] Normal 5.0-8.0 [facility] Comment on above: Performed By: #### L [id number] ####[facility] ([facility])[address] [place] [address] Protein (U) [Mass/Vol] 30 mg/dL Abnormal Negative [facility] Comment on above: Performed By: #### L [id number] ####[facility] ([facility])[address] [place] [address] Specific gravity (U) [Rel density] 1.021 High 1.015-1.020 [facility] Comment on above: Performed By: #### L [id number] ####[facility] ([facility])[address] [place] [address] ACETAMINOPHEN LEVELon 2022 ACETAMINOPHEN (UG/ML) IN SER/PLAS <10 Low 10-30 [facility] Comment on above: Performed By: #### L [id number] ####[facility] ([facility])[address] [place] [address] AFP TUMOR MARKERon ALPHA FETOPROTEIN TUMOR MARKER 2 ng/mL Normal 0-9 [facility] Comment on above: Result Comment: INTE RPRETIVE INFORMATION: Alpha Fetoprotein Tumor Marker The Chrissy [employer] Access DxI AFP method is used. Results obtained with different assay methods or kits cannot be used interchangeably. AFP is a valuable aid in the management of nonseminomatous testicular cancer patients when used in conjunction with information available from the clinical evaluation and other diagnostic procedures. Increased AFP concentrations have also been observed in ataxia telangiectasia, hereditary tyrosinemia, primary hepatocellular carcinoma, teratocarcinoma, gastrointestinal tract cancers with and without liver metastases, and in benign hepatic conditions such as acute viral hepatitis, chronic active hepatitis, and cirrhosis. The result cannot be interpreted as absolute evidence of the presence or absence of malignant disease. The result is not interpretable as a tumor marker in females. Access complete set of age- and/or gender-specific reference intervals for this test in the [employer] Test Directory ([employer]). Performed By: [facility] [address] [place] [address] Brokerage Branch Manager: Sylvester Levine MD, PhD CLIA Number: [id number] Performed By: #### L [id number] ####[facility] ([employer])[address] [place] [address] [id number] 2022 ALPHA-1 ANTITRYPSIN 221 mg/dL High 90-200 [facility] Comment on above: Result Comment: To c onvert to umol/L, multiply mg/dL by 0.185 Performed By: [facility] [address] [place] [address] Brokerage Branch Manager: Sylvester Levine MD, PhD CLIA Number: [id number] Performed By: #### L [id number] ####[facility] ([employer])[address] [place] [address] ANAon 10-27-2022 YANI TITER <1:40 Normal <=1:40 [facility] Comment on above: Result Comment: Test performed using ALLY IFA YANI Hep-2 Test, a pre-standardized assay designed for the qualitative and semi-quantitative detection of antinuclear antibodies. Performed By: #### L [id number] ####[facility] ([facility])[address] [place] [address] ANTI-SMOOTH MUSCLE ANTIBODY TITERon 10-27-2022 SMOOTH MUSCLE AB, IGG TITER 1:40 High <1:20 [facility] Comment on above: Result Comment: INTE RPRETIVE INFORMATION: Smooth Muscle Ab, IgG Titer Less than 1:20 ........ Negative - No antibody detected. 1:20 - 1:80 .......... Weak Positive - Suggest repeat in two to three weeks with fresh specimen. 1:160 or greater ...... Positive - Suggestive of autoimmune hepatitis or chronic active hepatitis. Performed By: [facility] [address] [place] [address] Brokerage Branch Manager: Sylvester Levine MD, PhD CLIA Number: [id number] Performed By: #### L [id number] ####[facility] [place] [address] ANTI-SMOOTH MUSCLE ANTIBODY, IGG WITH REFLEX TO TITERon 10-27-2022 SMOOTH MUSCLE ANTIBODY 48 Units High 0-19 [facility] Comment on above: Result Comment: REFE RENCE INTERVAL: F-Actin (Smooth Muscle) Antibody, IgG by JADON 19 Units or less ....... Negative 20 - 30 Units .......... Weak Positive-Suggest repeat testing in two to three weeks with fresh specimen. 31 Units or greater..... Positive-Suggestive of autoimmune hepatitis type 1 or chronic active hepatitis. F-actin IgG antibodies have been shown to have increased sensitivity for autoimmune hepatitis (AIH) but lower specificity than smooth muscle antibodies (SMA). F-actin IgG antibodies can also be seen in SMA-negative disease controls (non-AIH), especially in patients with primary biliary cirrhosis and chronic hepatitis C infections. Some patients with AIH may be SMA-positive but negative for F-actin IgG. Consider testing for SMA by IFA if suspicion for AIH is strong. Performed by [facility], [address] [place] [id number] www.[employer], Supa Roberts MD, Lab. Director CLIA Number: [id number] Performed By: #### L [id number] ####[facility] [place] [address] BASIC METABOLIC PANELon 10-17 Anion gap [Moles/Vol] 13 mmol/L Normal 7-20 [facility] Comment on above: Performed By: #### L [id number] ####[facility] ([facility])[address] [place] [address] Calcium [Mass/Vol] 8.5 mg/dL Low 8.6-10.3 [facility] Comment on above: Performed By: #### L [id number] ####[facility] ([facility])[address] [place] [address] Chloride [Moles/Vol] 109 mmol/L High 98-107 [facility] Comment on above: Performed By: #### L [id number] ####[facility] ([facility])[address] [place] [address] CO2 [Moles/Vol] 21 mmol/L Normal 21-31 [facility] Comment on above: Performed By: #### L [id number] ####[facility] ([facility])[address] [place] [address] Creatinine [Mass/Vol] 0.92 mg/dL Normal 0.70-1.30 [facility] Comment on above: Performed By: #### L [id number] ####[facility] ([facility])[address] [place] [address] GLOMERULAR FILTRATION RATE ML/MIN/1.73 SQ M.PREDICTED 81.5 mL/min/1.73m*2 Normal >60.0 [facility] Comment on above: Result Comment: The [facility]???s estimated glomerular filtration rate (eGFR) will no longer include consideration of race in its calculation. The National Kidney Foundation???s eGFR Task Force developed new recommendations for the estimation of the glomerular filtration rate in the [place] They recommend immediate implementation of the new equation refit without the race variable in all laboratories because the calculation does not include race. In addition to not including race in the calculation and reporting, it included diversity in its development, and has acceptable performance characteristics and potential consequences that do not disproportionately affect any one group of individuals. Performed By: #### L [id number] ####[facility] ([facility])[address] [place] [address] Glucose [Mass/Vol] 110 mg/dL High 70-100 [facility] Comment on above: Performed By: #### L [id number] ####[facility] ([facility])[address] [place] [address] Potassium [Moles/Vol] 3.9 mmol/L Normal 3.5-5.1 [facility] Comment on above: Performed By: #### L [id number] ####[facility] ([facility])[address] [place] [address] Sodium [Moles/Vol] 139 mmol/L Normal 136-145 [facility] Comment on above: Performed By: #### L [id number] ####[facility] ([facility])[address] [place] [address] Urea nitrogen [Mass/Vol] 20 mg/dL Normal 7-25 [facility] Comment on above: Performed By: #### L [id number] ####[facility] ([facility])[address] [place] [address] UREA NITROGEN/CREATININE (MASS RATIO) IN SER/PLAS 21.7 Normal [facility] Comment on above: Performed By: #### L [id number] ####[facility] ([facility])[address] [place] [address] C-REACTIVE PROTEINon 023 C-REACTIVE PROTEIN, SERUM 7.7 mg/dL High <=0.4 [facility] Comment on above: Result Comment: INTE RPRETIVE INFORMATION: C-Reactive Protein Significantly decreased CRP values may result in specimens from patients treated with carboxypenicillins. Performed By: [facility] [address] [place] [address] Brokerage Branch Manager: Sylvester Levine MD, PhD CLIA Number: [id number] Performed By: #### L [id number] ####[facility] ([facility])[address] [place] [address] CBC WITH AUTO DIFFERENTIALon 10-27-2022 Erythrocyte distribution width (RBC) [Ratio] 15.9 % High 11.5-15.0 [facility] Comment on above: Performed By: #### L [id number] ####[facility] ([facility])[address] [place] [address] ERYTHROCYTE MEAN CORPUSCULAR HEMOGLOBIN CONCENTRATION (G/DL) BY AUTOMATED 33.9 g/dL Normal 32.0-35.0 [facility] Comment on above: Performed By: #### L [id number] ####[facility] ([facility])[address] [place] [address] Hematocrit (Bld) [Volume fraction] 40.7 % Normal 39.0-55.0 [facility] Comment on above: Performed By: #### L [id number] ####[facility] ([facility])[address] [place] [address] Hemoglobin (Bld) [Mass/Vol] 13.8 g/dL Normal 13.0-17.0 [facility] Comment on above: Performed By: #### L [id number] ####[facility] ([facility])[address] [place] [address] MCH (RBC) [Entitic mass] 29.1 pg Normal 27.0-33.0 [facility] Comment on above: Performed By: #### L [id number] ####[facility] ([facility])[address] [place] [address] MCV (RBC) [Entitic vol] 85.9 fL Normal 82.0-98.0 [facility] Comment on above: Performed By: #### L [id number] ####[facility] ([facility])[address] [place] [address] NRBC (PER 100 WBCS) BY AUTOMATED COUNT 0.0 % Normal 0 [facility] Comment on above: Performed By: #### L [id number] ####[facility] ([facility])[address] [place] [address] PLATELETS (10*3/UL) IN BLOOD AUTOMATED COUNT 160 10*3/uL Normal 150-400 [facility] Comment on above: Performed By: #### L [id number] ####[facility] ([facility])[address] [place] [address] RBC (Bld) [#/Vol] 4.74 10*6/uL Normal 4.20-5.70 [facility] Comment on above: Performed By: #### L [id number] ####[facility] ([facility])[address] [place] [address] WBC (Bld) [#/Vol] 22.06 10*3/uL High 4.00-10.60 [facility] Comment on above: Performed By: #### L [id number] ####[facility] ([facility])[address] [place] [address] CONSULTon 10-27-2022 CONSULT ---- -------- Attestation signed by Mary Ellen Sanchez MD at 10/28/2022 3:28 PM I personally saw and examined the patient on the same date of service as fellow. I discussed the findings and therapeutic plan with the fellow. I agree with the documentation, except for any edits/updates below. -------- [facility] Teaching GI Service Initial Gastroenterology/Hepatol ogy Consultation Note IDENTIFYING DATA PATIENT: Dc Rasmussen ADMIT DATE: 10/27/2022 TIME OF EVALUATION: 10/27/2022 5:00 PM Reason for Consult: CBD obstruction on CT at OSH. Accepted by GI w hosp primary. Just arrived as a transfer now. Full note to follow. thank you HISTORY OF PRESENT ILLNESS Dc Rasmussen is a 87 y.o. male who has PMHx of alcohol dependence, quit 40 years ago, chronically elevated LFTs secondary to fatty liver disease, CAD s/p PCI, a fib not on anticoagulation, who presented to OSH due to fatigue and weakness. Patient reports that he has been experiencing weakness and inability to get around easily. He denies abdominal pain. He reports some nausea, fevers, chills. Decreased appetite over the last several months. Denies weight loss. Patient denies previous hx of liver disease, no family hx of liver disease. At OSH, CT scan was performed that revealed concern for non-specific fat stranding in the kristine hepatis centered around the extrahepatic bile duct concerning for possible cholangitis vs reactive changes. He was also found to have lymphadenopathy throughout. MRCP was performed that was poor quality due to motion artifact, but was negative for biliary ductal dilation. Patient was transferred to [facility] for GI evaluation. GI HISTORY SUMMARY TABLE Last EGD Last colonoscopy Primary GI physician PAST MEDICAL, SURGICAL, FAMILY, and SOCIAL HISTORY Past Medical History: Diagnosis Date Alcohol abuse, in remission Coronary artery disease GERD (gastroesophageal reflux disease) HLD (hyperlipidemia) Hypertension [facility] (myocardial infarction) (CMS/HCC) Past Surgical History: Procedure Laterality Date CTA HEART CORONARY 08/30/2019 CT HEART CORONARY ANGIOGRAM SHIPMAN CONVERSION No family history on file. Social History: Social History Tobacco Use Smoking status: Former Types: Cigarettes Smokeless tobacco: Never MEDICATIONS Allergies: Allergies Allergen Reactions Tramadol Unknown Other reaction(s): Mental Status Change, Paranoia Albuterol Other migraines Codeine-Guaifenesin Other reaction(s): RASH Ether Other reaction(s): Unknown Levofloxacin Other reaction(s): RASH/angioedema Lidocaine Other reaction(s): Intolerance Oxycodone Hcl Other reaction(s): hallucinations Oxycodone-Acetaminophen Unknown Other reaction(s): Mental Status Change Home Medications: Prior to Admission medications Medication Sig Start Date End Date Taking? Authorizing Provider acetaminophen (Tylenol) 500 mg tablet Take 650 mg by mouth every 6 (six) hours if needed. 03/05/22 Historical Provider, atorvastatin (Lipitor) 20 mg tablet Take 40 mg by mouth in the morning. 03/05/22 Historical Provider, cetirizine (ZyrTEC) 10 mg tablet Take 10 mg by mouth in the morning. 03/05/22 Historical Provider, diazePAM (Valium) 5 mg tablet Take 5 mg by mouth every 8 (eight) hours if needed. 03/05/22 Historical Provider, diphenhydrAMINE 25 mg capsule Take 25 mg by mouth if needed at bedtime. 03/05/22 Historical Provider, fluticasone (Flonase) 50 mcg/actuation nasal spray Administer 1 spray into each nostril in the morning. Shake gently. Before first use, prime pump. After use, clean tip and replace cap. Historical Provider, furosemide (Lasix) 40 mg tablet Take 40 mg by mouth in the morning. 03/05/22 Historical Provider, hydrocortisone 2.5 % ointment Apply 1 Application topically if needed in the morning and at bedtime. Historical Provider, ipratropium (Atrovent) 42 mcg (0.06 %) nasal spray every 8 (eight) hours. Historical Provider, levalbuterol (Xopenex) 1.25 mg/3 mL nebulizer solution 3 mL every 8 (eight) hours if needed. Historical Provider, metoprolol succinate XL (Toprol-XL) 100 mg 24 hr tablet Take 1 tablet (100 mg) by mouth once daily as directed. Do not crush or chew. Patient taking differently: Take 50 mg by mouth in the morning. Do not crush or chew. 06/16/22 06/16/23 Shari Sullivan NP metoprolol succinate XL (Toprol-XL) 50 mg 24 hr tablet Take 1 tablet (50 mg) by mouth in the morning. 06/10/22 07/10/22 Yonas Hector MD montelukast (Singulair) 10 mg tablet Take 10 mg by mouth at bedtime. 03/05/22 Historical Provider, hiviwysx-yposztesh-JZ (Cortisporin) 3.5-10,000-10 mg-unit-mg/mL ophthalmic suspension Administer 4 drops into both eyes every 6 (six) hours. Historical Provider, nitroglycerin (NitrolinguaL) 400 mc (more content not included)... Normal [facility] FERRITINon 10-27-2022 FERRITIN (NG/ML) IN SER/PLAS 211.0 ng/mL Normal 24.0-336.0 [facility] Comment on above: Performed By: #### L [id number] ####[facility] ([facility])[address] [place] [address] HEPATIC FUNCTION PANELon Albumin [Mass/Vol] 3.1 g/dL Low 3.5-5.7 [facility] Comment on above: Performed By: #### L [id number] ####[facility] ([facility])[address] [place] [address] ALP [Catalytic activity/Vol] 210 U/L High 34-104 [facility] Comment on above: Performed By: #### L [id number] ####[facility] ([facility])[address] [place] [address] ALT [Catalytic activity/Vol] 72 U/L High 7-52 [facility] Comment on above: Performed By: #### L [id number] ####[facility] ([facility])[address] [place] [address] AST [Catalytic activity/Vol] 39 U/L Normal 13-39 [facility] Comment on above: Performed By: #### L [id number] ####[facility] ([facility])[address] [place] [address] Bilirubin [Mass/Vol] 0.9 mg/dL Normal 0.3-1.0 [facility] Comment on above: Performed By: #### L [id number] ####[facility] ([facility])[address] [place] [address] Magnesium [Mass/Vol] 0.3 mg/dL High 0-0.2 [facility] Comment on above: Performed By: #### L [id number] ####[facility] ([facility])[address] [place] [address] Protein [Mass/Vol] 7.2 g/dL Normal 6.0-8.3 [facility] Comment on above: Performed By: #### L [id number] ####[facility] ([facility])[address] [place] [address] HEPATITIS PANEL, ACUTEon HEPATITIS A VIRUS IGM AB PRESENCE IN SER/PLAS Indeterminate Abnormal Nonreactive [facility] Comment on above: Order Comment: Patie nts with specimens exhibiting indeterminate test results should be retested at approximately one-week intervals. Performed By: #### L [id number] ####[facility] ([facility])[address] [place] [address] HEPATITIS B VIRUS CORE AB (PRESENCE) IN SER/PLAS BY IMM Non-Reactive Normal Nonreactive [facility] Comment on above: Order Comment: Patie nts with specimens exhibiting indeterminate test results should be retested at approximately one-week intervals. Performed By: #### L [id number] ####[facility] ([facility])[address] [place] [address] HEPATITIS B VIRUS SURFACE AG PRESENCE IN SERUM Non-Reactive Normal Nonreactive [facility] Comment on above: Order Comment: Patie nts with specimens exhibiting indeterminate test results should be retested at approximately one-week intervals. Performed By: #### L [id number] ####[facility] ([facility])[address] [place] [address] HEPATITIS C VIRUS AB PRESENCE IN SERUM Non-Reactive Normal Nonreactive [facility] Comment on above: Order Comment: Patie nts with specimens exhibiting indeterminate test results should be retested at approximately one-week intervals. Performed By: #### L [id number] ####[facility] ([facility])[address] [place] [address] IRON AND TIBCon 10-27-2022 IRON (UG/DL) IN SER/PLAS 85 ug/dL Normal 50-212 [facility] Comment on above: Performed By: #### L [id number] ####[facility] ([facility])[address] [place] [address] IRON BINDING CAPACITY (UG/DL) IN SER/PLAS 215 ug/dL Low 250-450 [facility] Comment on above: Performed By: #### L [id number] ####[facility] ([facility])[address] [place] [address] IRON BINDING CAPACITY.UNSATURATE D (UG/DL) IN SER/PLAS 130.0 ug/dL Low 155.0-355.0 [facility] Comment on above: Performed By: #### L [id number] ####[facility] ([facility])[address] [place] [address] IRON SATURATION (%) IN SER/PLAS 40 % Normal 20-50 [facility] Comment on above: Performed By: #### L [id number] ####[facility] ([facility])[address] [place] [address] IRON (UG/DL) IN SER/PLAS 105 ug/dL Normal 50-212 [facility] Comment on above: Performed By: #### L [id number] ####[facility] ([facility])[address] [place] [address] IRON BINDING CAPACITY (UG/DL) IN SER/PLAS 214 ug/dL Low 250-450 [facility] Comment on above: Performed By: #### L [id number] ####[facility] ([facility])[address] [place] [address] IRON BINDING CAPACITY.UNSATURATE D (UG/DL) IN SER/PLAS 109.0 ug/dL Low 155.0-355.0 [facility] Comment on above: Performed By: #### L [id number] ####[facility] ([facility])[address] [place] [address] IRON SATURATION (%) IN SER/PLAS 49 % Normal 20-50 [facility] Comment on above: Performed By: #### L [id number] ####[facility] ([facility])[address] [employer] [place] [address] LACTATE DEHYDROGENASEon 10-17 LACTATE DEHYDROGENASE (U/L) IN SER/PLAS BY LAC->PYR RXN 334 U/L High 140-271 [facility] Comment on above: Performed By: #### L [id number] ####[facility] ([facility])[address] [place] [address] LIVER FIBROSIS CHRONIC VIRAL HEPATITISon 10-27-2022 SIIYG-8-ACCJUGBIPIC IN, FIBROMETER 273 mg/dL Normal 131-293 [facility] Comment on above: Performed By: #### L [id number] ####[facility] ([facility])[address] [place] [address] ALT [Catalytic activity/Vol] 93 U/L High 5-50 [facility] Comment on above: Performed By: #### L [id number] ####[facility] ([facility])[address] [place] [address] Amylase [Catalytic activity/Vol] 137 U/L High 7-51 [facility] Comment on above: Performed By: #### L [id number] ####[facility] ([facility])[address] [place] [address] AST [Catalytic activity/Vol] 45 U/L Normal 9-50 [facility] Comment on above: Performed By: #### L [id number] ####[facility] ([facility])[address] [place] [address] CIRRHOMETER PATIENT SCORE 0.55 Normal [facility] Comment on above: Performed By: #### L [id number] ####[facility] ([facility])[address] [place] [address] EER FIBROMETER REPORT See Note Normal [facility] Comment on above: Result Comment: Auth orized individuals can access the [facility] Enhanced Report using the following link: [email or web address] Performed By: #### L [id number] ####[facility] ([facility])[address] [place] [address] FIBROMETER INTERPRETATION See Report Normal [facility] Comment on above: Result Comment: [13] [17] INTERPRETIVE INFORMATION: Fibrometer Interpretation Calculations for the final report are based on accurate data for age, gender, and platelet count. If any of this information needs to be corrected, please contact [facility] Client Services to request a recalculation. Client Services may be contacted at . The E[employer] FibroMeter profile serves as a surrogate marker of liver fibrosis, cirrhosis, and necro-inflammatory activity. A proprietary algorithm calculates and compares results from 7 blood markers along with age and gender to provide a patient score (from 0 to 1) and a correlated fibrosis stage (Metavir F0-F4) and activity grade (Metavir A0-A3). The fibrosis/cirrhosis score is further evaluated by a rules-based system to detect anomalous profile results which may modify the fibrosis/cirrhosis score as needed. Results should be interpreted in conjunction with the patient's clinical history; particularly when the rules-based system has modified the scores. Legend: -Metavir is a histological scoring system for determining the extent of liver fibrosis and inflammation. STAGE OF FIBROSIS (F scale) F0 = no fibrosis F1 = portal fibrosis without septa F2 = portal fibrosis with few septa F3 = numerous septa without cirrhosis F4 = cirrhosis GRADE OF NECRO-INFLAMMATORY ACTIVITY (A scale) A0 = no activity A1 = mild activity A2 = moderate activity A3 = severe activity -Platelet count result provided by client. -The Prothrombin Index test expresses the Prothrombin Time (PT) as a percentage of normal, and is used to standardize PT results across different instrument/reagent combinations. This test was developed and its performance characteristics determined by [facility]. It has not been cleared or approved by the US Food and Drug Administration. This test was performed in a CLIA certified laboratory and is intended for clinical purposes. Performed By: [facility] [address] [place] [address] Brokerage Branch Manager: Sylvester Levine MD, PhD [facility] Number: [id number] Performed By: #### L [id number] ####[facility] ([facility])[address] [place] [address] FIBROMETER PATIENT SCORE 0.93 Normal [facility] Comment on above: Performed By: #### L [id number] ####[facility] ([facility])[address] [place] [address] FIBROMETER PLATELET COUNT 290 k/uL Normal [facility] Comment on above: Performed By: #### L [id number] ####[facility] ([facility])[address] [place] [address] FIBROMETER PROTHROMBIN INDEX 62 % Low 90-120 [facility] Comment on above: Performed By: #### L [id number] ####[facility] ([facility])[address] [place] [address] FIBROSIS METAVIR CLASSIFICATION F4[F3-F4] Normal [facility] Comment on above: Result Comment: INTE RPRETIVE INFORMATION: Fibrosis Metavir Classification FibroMeter (fibrosis score) comments F0/F1 Equal probability between F0 and F1 F1[F1-F2] Predominance of F1, but F2 is possible F2[F1-F2] Predominance of F2, but F1 is possible F2[F1-F3] Predominance of F2, but F1 and F3 are possible F2/F3 Equal probability between F2 and F3 F3[F2-F4] Predominance of F3, but F2 and F4 are possible F3[F3-F4] Predominance of F3, but F4 is possible F4[F3-F4] Predominance of F4, but F3 is possible Performed By: #### L [id number] ####[facility] ([facility])[address] [place] [address] INFLAMETER METAVIR CLASSIFICATION A1/A2 Normal [facility] Comment on above: Result Comment: INTE RPRETIVE INFORMATION: InflaMeter Metavir Classification InflaMeter (activity score) comments A0/A1 Equal probability between A0 and A1 A1/A2 Equal probability between A1 and A2 A2/A3 Equal probability between A2 and A3 Performed By: #### L [id number] ####[facility] ([facility])[address] [place] [address] INFLAMETER PATIENT SCORE 0.66 Normal [facility] Comment on above: Performed By: #### L [id number] ####[facility] ([facility])[address] [place] [address] Urea nitrogen [Mass/Vol] 20 mg/dL Normal 7-20 [facility] Comment on above: Performed By: #### L [id number] ####[facility] ([facility])[address] [place] [address] MANUAL DIFFERENTIALon 2022 ANISOCYTOSIS PRESENCE IN BLOOD BY LIGHT MICROSCOPY Slight Normal [facility] Comment on above: Performed By: #### L [id number] #### [facility] ([facility]) [address] [place] [address] BASOPHILS (10*3/UL) IN BLOOD BY CALCULATION 0.02 10*3/uL Normal 0.00-0.20 [facility] Comment on above: Performed By: #### L [id number] #### [facility] ([facility]) [address] [facility] [place] [address] BASOPHILS/100 LEUKOCYTES IN BLOOD BY AUTOMATED COUNT 0.1 % Normal 0.0-1.0 [facility] Comment on above: Performed By: #### L [id number] #### [facility] ([facility]) [address] [place] [address] CESILIA CELLS PRESENCE IN BLOOD BY LIGHT MICROSCOPY Moderate Normal [facility] Comment on above: Performed By: #### L [id number] #### [facility] ([facility]) [address] [place] [address] EOSINOPHILS (10*3/UL) IN BLOOD BY CALCULATION 0.07 10*3/uL Normal 0.00-0.50 [facility] Comment on above: Performed By: #### L [id number] #### [facility] ([facility]) [address] [place] [address] EOSINOPHILS/100 LEUKOCYTES IN BLOOD BY AUTOMATED COUNT 0.3 % Normal 0.0-6.0 [facility] Comment on above: Performed By: #### L [id number] #### [facility] ([facility]) [address] [place] [address] IMMATURE GRANULOCYTES (10*3/UL) IN BLOOD BY CALCULATION 0.71 10*3/uL High 0.00-0.20 [facility] Comment on above: Performed By: #### L [id number] #### [facility] ([facility]) [address] [place] [address] IMMATURE GRANULOCYTES/100 LEUKOCYTES IN BLOOD BY AUTOMATED COUNT 3.2 % High 0.0-1.0 [facility] Comment on above: Performed By: #### L [id number] #### [facility] ([facility]) [address] [place] [address] LYMPHOCYTES (10*3/UL) IN BLOOD BY CALCULATION 2.29 10*3/uL Normal 1.20-4.00 [facility] Comment on above: Performed By: #### L [id number] #### [facility] ([facility]) [address] [place] [address] LYMPHOCYTES/100 LEUKOCYTES IN BLOOD BY AUTOMATED COUNT 10.4 % Low 20.0-45.0 [facility] Comment on above: Performed By: #### L [id number] #### [facility] ([facility]) [address] [place] [address] MONOCYTES (10*3/UL) IN BLOOD BY CALCUATION 0.93 10*3/uL Normal 0.10-1.00 [facility] Comment on above: Performed By: #### L [id number] #### [facility] ([facility]) [address] [place] [address] MONOCYTES/100 LEUKOCYTES IN BLOOD BY AUTOMATED COUNT 4.2 % Low 5.0-12.0 [facility] Comment on above: Performed By: #### L [id number] #### [facility] ([facility]) [address] [place] [address] NEUTROPHILS (10*3/UL) IN BLOOD BY CALCULATION 18.0 10*3/uL High 1.6-7.6 [facility] Comment on above: Performed By: #### L [id number] #### [facility] ([facility]) [address] [place] [address] NEUTROPHILS/100 LEUKOCYTES IN BLOOD BY AUTOMATED COUNT 81.8 % High 40.0-72.0 [facility] Comment on above: Performed By: #### L [id number] #### [facility] ([facility]) [address] [place] [address] OVALOCYTES PRESENCE IN BLOOD BY LIGHT MICROSCOPY Slight Normal [facility] Comment on above: Performed By: #### L [id number] #### [facility] ([facility]) [address] [place] [address] POIKILOCYTOSIS (PRESENCE) IN BLOOD BY LIGHT MICROSCOPY Moderate Normal [facility] Comment on above: Performed By: #### L [id number] #### [facility] ([facility]) [address] [place] [address] POLYCHROMASIA IN BLOOD BY LIGHT MICROSCOPY Slight Normal [facility] Comment on above: Performed By: #### L [id number] #### [facility] ([facility]) [address] [place] [address] TARGET CELLS IN BLOOD BY LIGHT MICROSCOPY Slight Normal [facility] Comment on above: Performed By: #### L [id number] #### [facility] ([facility]) [address] [place] [address] MITOCHONDRIAL ANTIBODIES, M2 on 10-27-2022 MITOCHONDRIAL M2 ANTIBODY 6.1 Units Normal 0.0-24.9 [facility] Comment on above: Result Comment: REFE RENCE INTERVAL: Mitochondrial (M2) Antibody, IgG 20.0 Units or less ......... Negative 20.1 - 24.9 Units........... Equivocal 25.0 Units or greater....... Positive Anti-mitochondrial antibodies (AMA) are thought to be present in 90-95% of patients with primary biliary cholangitis (PBC). However, the frequency of detected antibodies may be cohort or assay dependent, as lower sensitivities have been reported. Not all PBC patients are positive for AMA; some patients may be positive for SP100 and/or GP210 antibodies. A negative result does not rule out PBC. Performed By: [facility] [address] [place] [address] Brokerage Branch Manager: Sylvester Levine MD, PhD CLIA Number: [id number] Performed By: #### L [id number] ####[facility] ([facility])[address] [place] [address] PATHOLOGY REVIEWon PATHOLOGY REVIEW Reviewed. Normal [facility] Comment on above: Result Comment: Elec tronically signed by Zian Conn MD on 10/28/22 at 8:17 AM. Performed By: #### L [id number] #### [facility] ([facility]) [address] [place] [address] PROTIME-INRon 10-27-2022 INR IN PPP BY COAGULATION ASSAY 1.25 High 0.90-1.10 [facility] Comment on above: Result Comment: ACCC P RECOMMENDED INR FOR WARFARIN THERAPY CONDITION INR PROPHYLAXIS OF VENOUS THROMBOSIS 2-3 (HIGH-RISK SURGERY) TREATMENT OF VENOUS THROMBOSIS 2-3 TREATMENT OF PULMONARY EMBOLISM 2-3 PREVENTION OF SYSTEMIC EMBOLISM: 2-3 ACUTE MYOCARDIAL INFARCTION TISSUE HEART VALVES VALVULAR HEART DISEASE ATRIAL FIBRILLATION RECURRENT SYSTEMIC EMBOLISM MECHANICAL HEART VALVE 2.5-3.5 FROM: ORAL ANTICOAGULANTS. MECHANISM OF ACTION, CLINICAL EFFECTIVENESS, AND OPTIMAL THERAPEUTIC RANGE. CHEST 1995;108:231S-246S. Performed By: #### L [id number] ####[facility] ([facility])[address] [place] [address] PROTHROMBIN TIME (PT) IN PPP BY COAGULATION ASSAY 15.7 Seconds High 12.3-14.8 [facility] Comment on above: Performed By: #### L [id number] ####[facility] ([facility])[address] [place] [address] RPRon 10-27-2022 REAGIN AB PRESENCE IN SERUM BY RPR Non-Reactive Normal Nonreactive [facility] Comment on above: Performed By: #### L [id number] ####[facility] ([facility])[address] [place] [address] SEDIMENTATION RATEon 023 SEDIMENTATION RATE, ERYTHROCYTE 60 mm/hr High <=10 [facility] Comment on above: Performed By: #### L [id number] ####[facility] ([facility])[address] [place] [address] TISSUE TRANSGLUTAMINASE, IGA on 10-27-2022 TISSUE TRANSGLUTAMINASE, IGA 3 U/mL Normal 0-3 [facility] Comment on above: Result Comment: INTE RPRETIVE INFORMATION: Tissue Transglutaminase (tTG) Antibody, IgA 3 U/mL or less: Negative 4-10 U/mL: Weak Positive 11 U/mL or greater: Positive Presence of the tissue transglutaminase (tTG) IgA antibody is associated with glutensensitive enteropathies such as celiac disease and dermatitis herpetiformis. tTG IgA antibody concentrations greater than 40 U/mL usually correlate with results of duodenal biopsies consistent with a diagnosis of celiac disease. For antibody concentrations greater or equal to 4 U/mL but less than or equal to 40 U/mL, additional testing for endomysial (VINCENT) IgA concentrations may improve the positive predictive value for disease. Performed By: [facility] [address] [place] [address] Brokerage Branch Manager: Sylvester Levine MD, PhD CLIA Number: [id number] Performed By: #### L [id number] ####[facility] ([facility])[address] [place] [address] TSH3 REFLEX TO FT4on 023 THYROTROPIN (MIU/L) IN SER/PLAS BY DETECTION LIMIT <= 0.05 MIU/L 0.91 mIU/L Normal 0.34-5.60 [facility] Comment on above: Performed By: #### L [id number] ####[facility] ([facility])[address] [place] [address] VITAMIN B12on 10-27-2022 Cobalamin (Vitamin B12) [Mass/Vol] 1187 pg/mL High 180-914 [facility] Comment on above: Result Comment: REFE RENCE RANGES: 180-914 pg/mL Normal 145-179 pg/mL Indeterminate <145 pg/mL Deficient Performed By: #### L [id number] ####[facility] ([facility])[address] [place] [address] ECHOCARDIO M/2D COMPLETEon 0 06-25-2022 ECHOCARDIO M/2D COMPLETE Patient Name Site Name DC RASMUSSEN [facility] Account No Medical Record Number Age Sex Date Time [id number] [facility]:[id number] M 06/25/2022 08:09 At the [facility] ECHOCARD[facility]GRAM REPORT PROCEDURE: CARDIO PULMONARY ECHOCARDIO M/2D COMP INDICATIONS: Abnormal EKG COMPARISON: None. DESCRIPTION: COMPLETE ECHOCARDIOGRAM Real-time transthoracic echocardiography with 2D, M-mode, spectral and color flow Doppler performed. QUALITY: Technical quality was good. LEFT VENTRICLE: Normal chamber size. Borderline left ventricular hypertrophy. Global left ventricular systolic function is normal. LV EF: Estimated left ventricular ejection fraction is 55% DIASTOLIC: Diastolic function is indeterminate. ATRIAL SEPTUM: LEFT ATRIUM: Normal chamber size. RIGHT ATRIUM: Moderate dilatation. RIGHT VENTRICLE: Mild dilatation. Normal right ventricular systolic function. TRICUSPID VALVE: Normal mobility and thickness. No stenosis with mild to moderate regurgitation. Moderate pulmonary hypertension. RVSP 45 mmHg MITRAL VALVE: Normal mobility and thickness. No evidence of mitral valve stenosis. There is no mitral annular calcification. Mild to moderate diastolic function is indeterminate mitral regurgitation. AORTIC VALVE: Normal trileaflet appearance. No visible sclerosis. Normal leaflet mobility. No evidence of aortic valve stenosis. No aortic regurgitation. AORTIC ROOT: Normal diameter and appearance. PULMONIC VALVE: Normal thickness and mobility. No stenosis. Trivial regurgitation. PERICARDIUM: No evidence of pericardial effusion. IVC: Collapses with inspirations. Normal size. PLEURA: CONCLUSION: 1. Normal left ventricular systolic function. LVEF is 55%. 2. Right ventricle is mildly dilated with normal systolic function. 3. Mild to moderate mitral and tricuspid regurgitation. 4. Moderate left atrial dilatation. 5. Moderately elevated right-sided pressures. Adult Echocardiography Procedure Report Left Ventricle LVEDD (3.7 - 5.6 cm): 4.98 cm LVESD (2.2 - 4.0 cm): 3.20 cm LVIVS thickness (0.6 - 1.2 cm): 1.13 cm LVPW thickness (0.5 - 1.0 cm): 1.05 cm e': 0.10 m/s E - e': 10.56 LVOT Max Gradient: 1.29 mm[Hg] Peak Velocity (LVOT): 0.57 m/s Mean Velocity (LVOT): 0.40 m/s LVOT Diameter 2.26 cm Left Ventricular Ejection Fraction: 55% Left Atrium LA Volume Index (2D A2C): 71.55 ml, 71.55 ml Left Atrium Systolic Dimension: 4.74 cm Mitral Valve MV E to A Ratio: 2.23 Mitral Valve A-Wave Peak Velocity: 0.49 m/s Mitral Valve E-Wave Peak Velocity: 1.10 m/s Right Ventricle RV Internal Diastolic Dimension: 4.17 cm Aorta AO Root Diam: 3.58 cm Ascending Ao Diam: 3.61 cm Aortic Valve AoV Area (Peak Saad): 2.44 cm2, 2.44 cm2 AoV Area (VTI): 2.58 cm2, 2.58 cm2 Peak Velocity(Antegrade Flow): 0.94 m/s Peak Gradient(Antegrade Flow): 3.50 mm[Hg] Mean Velocity(Antegrade Flow): 0.63 m/s Mean Gradient(Antegrade Flow): 1.84 mm[Hg] Velocity Time Integral: 22.82 cm Tricuspid Valve Peak Velocity (Regurgitant Flow): 2.76 m/s, 3.02 m/s, 2.68 m/s, 3.23 m/s Peak Velocity: 0.48 m/s Pulmonic Valve Mean Gradient: 1.39 mm[Hg], 1.81 mm[Hg] Mean Velocity: 0.54 m/s, 0.63 m/s Peak Velocity: 0.81 m/s, 0.87 m/s Peak Gradient: 2.62 mm[Hg], 3.02 mm[Hg] Right Atrium Right Atrium Systolic Pressure: 94.86 ml, 94.86 ml Dictated by: Yonas Hector M.D. on 06/25/2022 at 18:03 Approved by: Yonas Hector M.D. on 06/25/2022 at 18:06 Normal [facility] Office Visiton 06-16-2022 Follow-up visit [id number] Nabil Rasmussen od 1935 [facility] Provider Department [place] 06/16/2022 [id number] SULLIVAN [facility] No family history on file Level of Service:67412 [place] OFFICE/OUTPATIENT ESTABLISHED MOD MDM 30-39 MIN Reason for Visit and Comments: Follow-up [491413] - 2 yr. Follow up Normal [facility] Physician Referralon 023 Physician Referral [phone] [id number] [id number]: 127 Normal [facility] Ambulatory Visit Summaryon 0 05-22-2022 Ambulatory Visit Summary DC RASMUSSEN :1935 Visit Date:05/22/2022 Ambulatory Visit Instructions Your Diagnosis BPH with urinary obstruction Your Care Team Attending Physician - ALE FAN PA-C Primary Care Physician - NOLAN BAUTISTA MD This Is Your Medications List Contact prescribing physician if questions or concerns acetaminophen (Tylenol Extra Strength 500 mg oral tablet) ascorbic acid (Vitamin C 1000 mg oral tablet) atorvastatin (atorvastatin 20 mg Tab) cetirizine (cetirizine 10 mg Tab) diazepam (diazepam 5 mg Tab) diphenhydrAMINE (Benadryl 25 mg Cap) furosemide (Lasix 40 mg Tab) ipratropium nasal (Atrovent 0.03% [place]) levalbuterol (levalbuterol 1.25 mg/0.5 mL Concentrate) metoprolol (metoprolol 100 mg ER Tab) montelukast (Singulair 10 mg Tab) multivitamin (Vitamin B Complex oral capsule) nitroglycerin (nitroglycerin 0.4 mg SubL [place]) pantoprazole (Protonix 40 mg Tab-DR) potassium chloride (Potassium Chloride (Ywn-Ojaj-Dji 10)) tamsulosin (Flomax 0.4 mg Cap) zolpidem (Ambien 10 mg Tab) [Image Removed: STOP]Stop taking these medications ciprofloxacin (Cipro 500 mg Tab) Procedures Performed Cystoscope (03/24/2022), Open removal of foreign body from left atrium (09/07/2019), Upper GI (gastrointestinal) endoscopy (02/01/2019), Laparoscopic cholecystectomy (12/2018), Colonoscopy (05/06/2017), Hernia repair (2002), Angioplasty (1995), Vasectomy (1968), Tonsillectomy (1954), Cataract, Cholecystectomy, Excision of parapharyngeal mass, Tonsillectomy. Discharge Vitals Heart Rate (Peripheral) 79 Blood Pressure 142/81 Height 188 cm Height 74 in Weight 94 kg Weight 206.8 lb BMI 26.6 What to do next Scheduled Follow-Up Appointments 2022 2:30 PM EDT With: ALE FAN PA-C Where: [facility] Patient Educationon 05-23-19 Patient Education Urology Benign Prostatic Hyperplasia Benign prostatic hyperplasia (BPH) is an enlarged prostate gland that is caused by the normal aging process and not by cancer. The prostate is a walnut-sized gland that is involved in the production of semen. It is located in front of the rectum and below the bladder. The bladder stores urine and the urethra is the tube that carries the urine out of the body. The prostate may get bigger as a man gets older. An enlarged prostate can press on the urethra. This can make it harder to pass urine. The build-up of urine in the bladder can cause infection. Back pressure and infection may progress to bladder damage and kidney (renal) failure. What are the causes? This condition is part of a normal aging process. However, not all men develop problems from this condition. If the prostate enlarges away from the urethra, urine flow will not be blocked. If it enlarges toward the urethra and compresses it, there will be problems passing urine. What increases the risk? This condition is more likely to develop in men over the age of 52 years. What are the signs or symptoms? Symptoms of this condition include: ? Getting up often during the night to urinate. ? Needing to urinate frequently during the day. ? Difficulty starting urine flow. ? Decrease in size and strength of your urine stream. ? Leaking (dribbling) after urinating. ? Inability to pass urine. This needs immediate treatment. ? Inability to completely empty your bladder. ? Pain when you pass urine. This is more common if there is also an infection. ? Urinary tract infection (UTI). How is this diagnosed? This condition is diagnosed based on your medical history, a physical exam, and your symptoms. Tests will also be done, such as: ? A post-void bladder scan. This measures any amount of urine that may remain in your bladder after you finish urinating. ? A digital rectal exam. In a rectal exam, your health care provider checks your prostate by putting a lubricated, gloved finger into your rectum to feel the back of your prostate gland. This exam detects the size of your gland and any abnormal lumps or growths. ? An exam of your urine (urinalysis). ? A prostate specific antigen (PSA) screening. This is a blood test used to screen for prostate cancer. ? An ultrasound. This test uses sound waves to electronically produce a picture of your prostate gland. Your health care provider may refer you to a specialist in kidney and prostate diseases (urologist). How is this treated? Once symptoms begin, your health care provider will monitor your condition (active surveillance or watchful waiting). Treatment for this condition will depend on the severity of your condition. Treatment may include: ? Observation and yearly exams. This may be the only treatment needed if your condition and symptoms are mild. ? Medicines to relieve your symptoms, including: ? Medicines to shrink the prostate. ? Medicines to relax the muscle of the prostate. ? Surgery in severe cases. Surgery may include: ? Prostatectomy. In this procedure, the prostate tissue is removed completely through an open incision or with a laparoscope or robotics. ? Transurethral resection of the prostate (TURP). In this procedure, a tool is inserted through the opening at the tip of the penis (urethra). It is used to cut away tissue of the inner core of the prostate. The pieces are removed through the same opening of the penis. This removes the blockage. ? Transurethral incision (TUIP). In this procedure, small cuts are made in the prostate. This lessens the prostate's pressure on the urethra. ? Transurethral microwave thermotherapy (TUMT). This procedure uses microwaves to create heat. The heat destroys and removes a small amount of prostate tissue. ? Transurethral needle ablation (TUNA). This procedure uses radio frequencies to destroy and remove a small amount of prostate tissue. ? Interstitial laser coagulation (ILC). This procedure uses a laser to destroy and remove a small amount of prostate tissue. ? Transurethral electrovaporization (TUVP). This procedure uses electrodes to destroy and remove a small amount of prostate tissue. ? Prostatic urethral lift. This procedure inserts an implant to push the lobes of the prostate away from the urethra. Follow these instructions at home: ? Take xdot-uxl-hnhrens and prescription medicines only as told by your health care provider. ? Monitor your symptoms for any changes. Contact your health care provider with any changes. ? Avoid drinking large amounts of liquid before going to bed or out in public. ? Avoid or reduce how much caffeine or alcohol you drink. ? Give yourself time when you urinate. ? Keep all follow-up visits as told by your health care provider. This is important. Contact a health care provider if: ? You have unexplained back pain. ? Your symptoms do not get better with treatment. ? You d (more content not included)... Normal [facility] Urology Office/Clinic Noteon 05-22-2022 Urology Office/Clinic Note Chief Complaint 2 month f/u HPI Staff Dc is a 86y/o male here for a 8 week f/u to Cysto/UD done 03/24/2022. Flomax 0.4mg 2 tabs qd. No UA today. Previous DX: BPH. Dysuria: _denies Incomplete bladder emptying: _no Hematuria: _denies Frequency: _denies Urgency: _denies Nocturia: _denies Stream: _stop and go Leaking: _denies Post void dripping: _denies Wearing pads/ Depends: _denies Urge incontinence: _denies Stress incontinence: _denies Incontinence without Sensory Awareness: _denies Abdominal pain: _denies Flank pain: _denies Sexual complaints: _ History of Present Illness staff HPI reviewed and agree. Tests Reviewed: Reviewed UA. Review of Systems PHQ Score Initial Depression Screen Score: 0 no fever, chills, malaise, myalgia. no rash/lesions. no chest pain, palpitations, or SOB. no abdominal pain, nausea, vomiting. no unilateral calf swelling, redness, pain Physical Exam Vitals & Measurements HR: 79(Peripheral) BP: 142/81 HT: 74 in HT: 188 cm WT: 94 kg WT: 206.8 lb BMI: 26.6 General: nontoxic, NAD Mouth: moist mucosa Lungs: normal respiratory effort Cardio: regular rate, good distal perfusion Abdomen: nondistended, no suprapubic distention or tenderness, no CVA tenderness Neurologic: Grossly normal Skin: No rashes or suspicious lesions Assessment/Plan 1. BPH with urinary obstruction (N40.1: Benign prostatic hyperplasia with lower urinary tract symptoms) S/p Cysto/UD 03/24/22 by [facility] - Prostatic Urethra: 4 cm, lateral lobe hypertrophy, no median lobe. Moderate universal protrusion of the prostate into the bladder lumen. Moderate trabeculation. Pt did not have stricture. No sample provided for UA today. Flomax 0.4 mg increased from 1 tab qd to 2 tab qd at prior OV. Has not noticed much of an improvement with increased Flomax dose. Has a strong stream at the beginning but sputter out towards the end. No longer has a split stream. Denies urgency and leaking. Pt had previously discussed Urolift procedure with [facility], rediscussed these today or continuing medication management. Pt prefers to continue with meds as sxs are not bothersome enough to warrant surgery. Discussed dreaming Flomax dose to 1 tab qd since pt hasn't noticed much of a difference, pt agrees. Follow up 6 mos or sooner if needed. Pt understands and agrees with plan. -Decrease Flomax from 2 tabs qd to 1 tab qd Follow-up With When Contact Information MEGHAN HAWKINS, ALE Reed, URL [address] [facility] [place] [address] Additional Instructions: 6 mos no labs Patient Education Benign Prostatic Hyperplasia Documentation recorded by the scribbrianna Rodriguez accurately reflects the services(s) I performed and decisions made by me. Authenticated by Ale Fan PA-C on 05/22/2022 14:54:27. I, Kayli Rodriguez, personally scribed for LYNSEY Washburn on 05/22/2022 14:50:07. . Problem List/Past Medical History Ongoing Actinic keratoses Alcohol dependency Arthritis Atrial fibrillation BPH with urinary obstruction Chronic cholecystitis Chronic cough Chronic obstructive pulmonary disease Congestive heart failure Coronary artery disease COVID-19 Diverticulosis Esophageal reflux Esophagitis GERD (gastroesophageal reflux disease) Heart disease Heart murmur Hemorrhoids Hyperlipidemia Incomplete bladder emptying Insomnia Myocardial infarction Rhinorrhea Shingles Split urinary stream Tonic-clonic seizures Historical Angina at rest Procedure/Surgical History Cystoscope (03/24/2022), Open removal of foreign body from left atrium (09/07/2019), Upper GI (gastrointestinal) endoscopy (02/01/2019), Laparoscopic cholecystectomy (12/2018), Colonoscopy (05/06/2017), Hernia repair (2002), Angioplasty (1995), Vasectomy (1968), Tonsillectomy (1954), Cataract, Cholecystectomy, Excision of parapharyngeal mass, Tonsillectomy. Medications Ambien 10 mg Tab, 10 mg= 1 tab(s), Oral, Once a day (at bedtime), PRN atorvastatin 20 mg Tab, Oral, Daily Atrovent 0.03% [place], 2 spray(s), Nasal, TID Benadryl 25 mg Cap, Oral, q6hr cetirizine 10 mg Tab, Oral, Daily Cipro 500 mg Tab, See Instructions, Not taking diazepam 5 mg Tab, Oral, q8hr Flomax 0.4 mg Cap, Oral, Daily Lasix 40 mg Tab, Oral, Daily levalbuterol 1.25 mg/0.5 mL Concentrate, NEB, TID metoprolol 100 mg ER Tab, Oral, Daily nitroglycerin 0.4 mg SubL Webber, SubLingual, q5min Potassium Chloride (Bzy-Mwol-Uwv 10), Oral, BID Protonix 40 mg Tab-DR, Oral, Daily Singulair 10 mg Tab, Oral, Daily Tylenol Extra Strength 500 mg oral tablet, Oral, q6hr Vitamin B Complex oral capsule, Oral, Daily Vitamin C 1000 mg oral tablet, Oral, Daily Allergies Ultram (Paranoia) Social History Tobacco Former smoker, quit more than 30 days ago Tobacco Use:. Never Smokeless Tobacco Use:. Cigarettes, Yes, 03/05/2022 Family History Colon cancer stage 1: Father. Congenital (more content not included)... Normal [facility] Comment on above: Result Comment: Elec tronically Signed By: ALE FAN PA-C\.br\Date and Time Signed: 05/22/22 14:54 EDT\.br\Electronically Co-Signed By: Kayli Rodriguez\.br\Date and Time Co-Signed: 05/22/22 14:50 EDT Consent for Procedure/Surger yon 03-25-2022 Consent for Procedure/Surgery [id number]: 127 Normal [facility] Ambulatory Visit Summaryon 0 03-24-2022 Ambulatory Visit Summary DC RASMUSSEN Con :1935 Visit Date:03/24/2022 Ambulatory Visit Instructions Your Diagnosis Split urinary stream BPH (benign prostatic hyperplasia) Incomplete bladder emptying Your Care Team Attending Physician - YECENIA KIM, Papa Velarde Primary Care Physician - MICHELE KIM, NOLAN Zuluaga This Is Your Medications List ciprofloxacin (Cipro 500 mg Tab) Contact prescribing physician if questions or concerns acetaminophen (Tylenol Extra Strength 500 mg oral tablet) ascorbic acid (Vitamin C 1000 mg oral tablet) atorvastatin (atorvastatin 20 mg Tab) cetirizine (cetirizine 10 mg Tab) diazepam (diazepam 5 mg Tab) diphenhydrAMINE (Benadryl 25 mg Cap) furosemide (Lasix 40 mg Tab) ipratropium nasal (Atrovent 0.03% [place]) levalbuterol (levalbuterol 1.25 mg/0.5 mL Concentrate) metoprolol (metoprolol 100 mg ER Tab) montelukast (Singulair 10 mg Tab) multivitamin (Vitamin B Complex oral capsule) nitroglycerin (nitroglycerin 0.4 mg SubL Webber) pantoprazole (Protonix 40 mg Tab-DR) potassium chloride (Potassium Chloride (Vmm-Okle-Nnm 10)) tamsulosin (Flomax 0.4 mg Cap) zolpidem (Ambien 10 mg Tab) Procedures Performed Cystoscope (03/24/2022), Open removal of foreign body from left atrium (09/07/2019), Upper GI (gastrointestinal) endoscopy (02/01/2019), Laparoscopic cholecystectomy (12/2018), Colonoscopy (05/06/2017), Hernia repair (2002), Angioplasty (1995), Vasectomy (1968), Tonsillectomy (1954), Cataract, Cholecystectomy, Excision of parapharyngeal mass, Tonsillectomy. Discharge Vitals Height 188 cm Height 74 in Weight 94 kg Weight 206.8 lb BMI 26.6 What to do next Scheduled Follow-Up Appointments 2022 2:30 PM EDT With: ALE FAN PA-C Where: [facility] Patient Educationon 03-24-19 Patient Education Urology Benign Prostatic Hyperplasia Benign prostatic hyperplasia (BPH) is an enlarged prostate gland that is caused by the normal aging process and not by cancer. The prostate is a walnut-sized gland that is involved in the production of semen. It is located in front of the rectum and below the bladder. The bladder stores urine and the urethra is the tube that carries the urine out of the body. The prostate may get bigger as a man gets older. An enlarged prostate can press on the urethra. This can make it harder to pass urine. The build-up of urine in the bladder can cause infection. Back pressure and infection may progress to bladder damage and kidney (renal) failure. What are the causes? This condition is part of a normal aging process. However, not all men develop problems from this condition. If the prostate enlarges away from the urethra, urine flow will not be blocked. If it enlarges toward the urethra and compresses it, there will be problems passing urine. What increases the risk? This condition is more likely to develop in men over the age of 50 years. What are the signs or symptoms? Symptoms of this condition include: ? Getting up often during the night to urinate. ? Needing to urinate frequently during the day. ? Difficulty starting urine flow. ? Decrease in size and strength of your urine stream. ? Leaking (dribbling) after urinating. ? Inability to pass urine. This needs immediate treatment. ? Inability to completely empty your bladder. ? Pain when you pass urine. This is more common if there is also an infection. ? Urinary tract infection (UTI). How is this diagnosed? This condition is diagnosed based on your medical history, a physical exam, and your symptoms. Tests will also be done, such as: ? A post-void bladder scan. This measures any amount of urine that may remain in your bladder after you finish urinating. ? A digital rectal exam. In a rectal exam, your health care provider checks your prostate by putting a lubricated, gloved finger into your rectum to feel the back of your prostate gland. This exam detects the size of your gland and any abnormal lumps or growths. ? An exam of your urine (urinalysis). ? A prostate specific antigen (PSA) screening. This is a blood test used to screen for prostate cancer. ? An ultrasound. This test uses sound waves to electronically produce a picture of your prostate gland. Your health care provider may refer you to a specialist in kidney and prostate diseases (urologist). How is this treated? Once symptoms begin, your health care provider will monitor your condition (active surveillance or watchful waiting). Treatment for this condition will depend on the severity of your condition. Treatment may include: ? Observation and yearly exams. This may be the only treatment needed if your condition and symptoms are mild. ? Medicines to relieve your symptoms, including: ? Medicines to shrink the prostate. ? Medicines to relax the muscle of the prostate. ? Surgery in severe cases. Surgery may include: ? Prostatectomy. In this procedure, the prostate tissue is removed completely through an open incision or with a laparoscope or robotics. ? Transurethral resection of the prostate (TURP). In this procedure, a tool is inserted through the opening at the tip of the penis (urethra). It is used to cut away tissue of the inner core of the prostate. The pieces are removed through the same opening of the penis. This removes the blockage. ? Transurethral incision (TUIP). In this procedure, small cuts are made in the prostate. This lessens the prostate's pressure on the urethra. ? Transurethral microwave thermotherapy (TUMT). This procedure uses microwaves to create heat. The heat destroys and removes a small amount of prostate tissue. ? Transurethral needle ablation (TUNA). This procedure uses radio frequencies to destroy and remove a small amount of prostate tissue. ? Interstitial laser coagulation (ILC). This procedure uses a laser to destroy and remove a small amount of prostate tissue. ? Transurethral electrovaporization (TUVP). This procedure uses electrodes to destroy and remove a small amount of prostate tissue. ? Prostatic urethral lift. This procedure inserts an implant to push the lobes of the prostate away from the urethra. Follow these instructions at home: ? Take lana-mce-tlkuron and prescription medicines only as told by your health care provider. ? Monitor your symptoms for any changes. Contact your health care provider with any changes. ? Avoid drinking large amounts of liquid before going to bed or out in public. ? Avoid or reduce how much caffeine or alcohol you drink. ? Give yourself time when you urinate. ? Keep all follow-up visits as told by your health care provider. This is important. Contact a health care provider if: ? You have unexplained back pain. ? Your symptoms do not get better with treatment. ? You d (more content not included)... Normal [facility] Urology Office/Clinic Noteon 03-24-2022 Urology Office/Clinic Note Chief Complaint Cysto/UD HPI Staff This is a 86 year male here for Cysto/UD. ABX stated History of Present Illness Tests reviewed: none. I have reviewed the previous health record information and history for this patient from LYNSEY Sanchez. I have reviewed and verified the staff HPI to be accurate for this encounter. There have been no associated fever, chills, flank pain, or blood in the urine. Denies any urinary infections since last encounter. Review of Systems PHQ Score Initial Depression Screen Score: 0 ROS - Provider Constitutional: denies weight loss, denies hot flashes. Eyes: denies eye problems. Gastrointestinal: denies nausea, denies vomiting. Cardiovascular: denies chest pain or angina. Integumentary: no dryness Musculoskeletal: denies musculoskeletal symptoms. ENMT: denies otolaryngeal symptoms. Respiratory: no shortness of breath. Heme/Lymph: denies easy bleeding tendency, denies easy bruising tendency. Psychiatric: no confusion, no anxiety. Genitourinary: See HPI. Physical Exam Vitals & Measurements HT: 74 in HT: 188 cm WT: 94 kg WT: 206.8 lb BMI: 26.6 General Appearance: alert, no distress, well nourished, well developed male. Genitourinary: normal scrotum, normal testes, normal urethra, normal epididymis, normal vas deferens/spermatic cord. Flank Pain: none. Bladder: nonpalpable. Procedure Operative Information Anesthesia Type: Local Procedure: Local Cystoscopy with Urethral Dilation Complications: None Surgical risks, benefits, details of the procedure have been explained to the patient. Full informed consent has been obtained. Intraoperative Information Prepped: Patient is brought back to the endoscopy suite. Patient is placed in supine position. Patient prepped in the usual fashion with Betadine solution. 2% Xylocaine Jelly is placed per Urethra. After waiting several minutes, the Cystoscope is introduced. The Urethra is: Normal The Prostatic Urethra is: _4 cm, lateral lobe hypertrophy, no median lobe. Moderate universal protrusion of the prostate into the bladder lumen. The Bladder: _No tumors or stones. Trabeculated: Moderate (2) The Ureteral orifices: Show efflux of clear urine. Specimens Removed: None Removal: Cystoscope is removed. The patient tolerated it well. Postoperative Information Patient is discharged home with antibiotic coverage. Follow up arranged. Assessment/Plan 1. Split urinary stream (R39.13: Splitting of urinary stream) CC is split urine stream. When starts urinating the stream is single and then will split. Part of stream will go in the toilet and part will go down his leg. Occurs daily. Stream issues x 1 year. Pt had IO cysto today without complications. Pt tool prophylactic abx prior to procedure. Follow up in 6 weeks with LYNSEY Flores. 2. BPH (benign prostatic hyperplasia) (N40.0: Benign prostatic hyperplasia without lower urinary tract symptoms) IPSS 13 on 03/05/22. Pt continues taking Flomax 0.4 mg QD. May possibly consider increasing to BID in the future. Pt's candidacy for prostate procedures assessed on cysto today. Pt does not have stricture. Pt to increase Flomax to BID. 3. Incomplete bladder emptying (R33.9: Retention of urine, unspecified) PVR 137 cc on 03/05/22. Overall, the patient has been on alpha blockers in the form of Flomax 0.4 mg daily. The patient witnessed the cystoscopy on video screen today. There is no evidence of urethral stricture so no dilatation was performed. We will increase the alpha-jaki as noted above and monitor for both symptom improvement and side effects. He knows to stop the medication if side effects become severe, in the form of possible lightheadedness or dizziness. He does have the moderate urinary retention so this does need to be monitored. We also briefly discussed minimally invasive prostate procedures, possibly in the form of a UroLift. We will monitor him over time. Follow-up With When Contact Information YECENIA KIM, Papa Velarde, URL [address] [place] [id number] Additional Instructions: f/u 6 weeks with Akbar Patient Education Benign Prostatic Hyperplasia IKayli, personally scribed for Dr. Reyna on 03/24/2022 07:48:13. . Documentation recorded by the scribeKayli, accurately reflects the services(s) I performed and decisions made by me. Authenticated by Dr. Reyna on 03/24/2022 07:52:49. Problem List/Past Medical History Ongoing Actinic keratoses Alcohol dependency Arthritis Atrial fibrillation BPH (benign prostatic hyperplasia) Chronic cholecystitis Chronic cough Chronic obstructive pulmonary disease Congestive heart failure Coronary artery disease COVID-19 Diverticulosis Esophageal reflux Esophagitis GERD (gastroesophageal reflux disease) Heart disease Heart murmur Hemorrhoids Hyperlipidemia Incomplete edgar (more content not included)... Normal [facility] Comment on above: Result Comment: Elec tronically Signed By: Papa REYNA MD\.br\Date and Time Signed: 03/24/22 07:54 EST\.br\Electronically Co-Signed By: Kayli Rodriguez\.br\Date and Time Co-Signed: 03/24/22 07:48 EST Formson 03-11-2022 Forms [id number] :127 Normal [facility] Physician Referralon 023 Physician Referral [id number]: 127 Normal [facility] Screenson 03-11-2022 Screens [id number] :127 Normal [facility] Urology Office/Clinic Noteon 03-07-2022 Urology Office/Clinic Note Chief Complaint split urine stream HPI Staff new patient is here for BPH referred by Nolan Bautista. PVR today is 137ml. Dysuria: denies pain and burning Incomplete bladder emptying: yes Hematuria: denies visible blood Frequency: every 45 minutes the first 3 hours out of the day, usually 4-5x a day Urgency: denies Nocturia: denies Stream: denies hesitancy, weak stream. Leaking: denies Post void dripping: denies Wearing pads/ Depends: denies Urge incontinence: no Stress incontinence: denies Incontinence without Sensory Awareness: denies Abdominal pain: denies Flank pain: denies Sexual complaints: denies History of Present Illness Historians: Pt and his [place]. Saw Dr. Rasmussen in the past for infection in foreskin (resolved). Pt referred by PCP for BPH w/ LUTS. CC: When starts urinating the stream is single and then will split. Part of stream will go in the toilet and part will go down his leg. Occurs daily. Stream issues x 1 year. Denies dysuria and blood in urine. Flomax 0.4 mg QD on med list. Started this years ago. Hx vasectomy but no other genital surgery. Hx UTI? Not besides a foreskin infection in the past for which he saw Dr. Rasmussen. This is no longer an issue. Hx urinary tract stones? Denies Denies Hx genital/pelvic radiation and injury. Constipation? BM daily but more hard than soft consistency, sometimes straining. Denies diabetes. Staff HPI reviewed and agree. See staff HPI. Review of Systems PHQ Score Initial Depression Screen Score: 0 Denies fever, chills, N/V, abd pain, JAY. Hx Meniere's disease but no recent episodes, no recent dizziness. Chronic LBP that Pt relates to arthritis. +chest pain, but no active chest pain. Exertion can trigger. This is not new. 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 FORD, not new, stable. Lasix controls swelling in R ankle per Pt. See HPI. Physical Exam Vitals & Measurements HR: 74(Peripheral) BP: 151/80 HT: 74 in HT: 188 cm WT: 94 kg WT: 206.8 lb BMI: 26.6 General appearance: Awake, alert, NAD, well-developed, well-nourished HEENT: Head is NC/AT Chest/Lungs: no conversational dyspnea, respirations non-labored Cardiovascular: no cyanosis or edema Abdomen: soft, non-tender, non-distended, no mass or organomegaly : No inguinal hernia. Normally formed penis, (uncircumcised, no phimosis or paraphimosis), scrotum, testicles, epididymides, and spermatic cords. Genitalia w/o erythema, edema, drainage, lesions, rash or mass. Urethral opening patent w/o drainage. Bladder non-palpable. No flank tenderness. Musculoskeletal: All 4 extremities intact. Able to move all 4 extremities. Skin: warm and dry Lymph nodes: no palpable inguinal nodes Neurological: Oriented to person, place, time, and situation. Thought processes logical. Interaction appropriate for setting. Seems to be in a euthymic mood. Assessment/Plan UA today - blood neg, WBC small, nitrite neg, glucose neg, protein neg, clear yellow urine. Denies UTI Sx. Urine not sent for Cx. PVR today - 137 ml. 1. Split urinary stream (R39.13: Splitting of urinary stream) CC is split urine stream. When starts urinating the stream is single and then will split. Part of stream will go in the toilet and part will go down his leg. Occurs daily. Stream issues x 1 year. Discussed Cysto to assess urinary channel. Cysto/UD risks discussed: pain/discomfort, bleeding, infection, injury to urethra, injury to bladder. If urethral stricture presents, discussed UD may or may not help Sx and Sx may possibly worsen. Pt would like to proceed w/ Cysto/possible UD. Prefers [place] office for Cysto. 2. BPH (benign prostatic hyperplasia) (N40.0: Benign prostatic hyperplasia without lower urinary tract symptoms) IPSS - 13, QoL - 4. Flomax 0.4 mg QD on med list. Started this years ago. Denies SEs. May possibly consider increasing to BID in the future. Will see what Cysto shows. May be a candidate for prostate procedure if prostate causing significant obstruction. Ordered: Urnls Dip Stick Auto w/o Microscopy POC 82528 3. Incomplete bladder emptying (R33.9: Retention of urine, unspecified) PVR today - 137 ml. Will see what Cysto shows. Follow-up No qualifying data available Will get Pt scheduled for Cysto/possible UD Problem List/Past Medical History Ongoing Actinic keratoses Alcohol dependency Arthritis Atrial fibrillation BPH (benign prostatic hyperplasia) Chronic cholecystitis Chronic cough Chronic obstructive pulmonary disease Congestive heart failure Coronary artery disease COVID-19 Diverticulosis Esophageal reflux Esophagitis GERD (gastroesophageal reflux disease) Heart disease Heart murmur Hemorrhoids Hyperlipidemia Incomplete bladder emptying Insomnia Myocardial infarction Rhinorrhea Shingles Split urinary stream Tonic-clonic seizures Historical Angina at rest Procedure/Surgical History Open removal of foreign body fro (more content not included)... Normal [facility] Comment on above: Result Comment: Elec tronically Signed By: kAbar Judge\.br\Date and Time Signed: 03/07/22 20:24 EST Ambulatory Visit Summaryon 0 03-05-2022 Ambulatory Visit Summary DC RASMUSSEN :1935 Visit Date:03/05/2022 Ambulatory Visit Instructions Your Diagnosis BPH (benign prostatic hyperplasia) Split urinary stream Tests Performed Urnls Dip Stick Auto w/o Microscopy POC 46115 Your Care Team Attending Physician - Akbar Judge Primary Care Physician - NOLAN BAUTISTA MD This Is Your Medications List acetaminophen (Tylenol Extra Strength 500 mg oral tablet) ascorbic acid (Vitamin C 1000 mg oral tablet) atorvastatin (atorvastatin 20 mg Tab) cetirizine (cetirizine 10 mg Tab) diazepam (diazepam 5 mg Tab) diphenhydrAMINE (Benadryl 25 mg Cap) furosemide (Lasix 40 mg Tab) ipratropium nasal (Atrovent 0.03% [place]) levalbuterol (levalbuterol 1.25 mg/0.5 mL Concentrate) metoprolol (metoprolol 100 mg ER Tab) montelukast (Singulair 10 mg Tab) multivitamin (Vitamin B Complex oral capsule) nitroglycerin (nitroglycerin 0.4 mg SubL [place]) pantoprazole (Protonix 40 mg Tab-DR) potassium chloride (Potassium Chloride (Iom-Eeij-Sjf 10)) tamsulosin (Flomax 0.4 mg Cap) zolpidem (Ambien 10 mg Tab) Procedures Performed Open removal of foreign body from left atrium (09/07/2019), Upper GI (gastrointestinal) endoscopy (02/01/2019), Laparoscopic cholecystectomy (12/2018), Colonoscopy (05/06/2017), Hernia repair (2002), Angioplasty (1995), Vasectomy (1968), Tonsillectomy (1954), Cataract, Cholecystectomy, Excision of parapharyngeal mass, Tonsillectomy. Discharge Vitals Heart Rate (Peripheral) 74 Blood Pressure 151/80 Height 188 cm Height 74 in Weight 94 kg Weight 206.8 lb BMI 26.6 Medications What How Much When Instructions Unchanged acetaminophen (Tylenol Extra Strength 500 mg oral tablet) By Mouth Every 6 hours Unchanged ascorbic acid (Vitamin C 1000 mg oral tablet) By Mouth Every day Unchanged atorvastatin (atorvastatin 20 mg Tab) By Mouth Every day Unchanged cetirizine (cetirizine 10 mg Tab) By Mouth Every day Unchanged diazepam (diazepam 5 mg Tab) By Mouth Every 8 hours Unchanged diphenhydrAMINE (Benadryl 25 mg Cap) By Mouth Every 6 hours Unchanged furosemide (Lasix 40 mg Tab) By Mouth Every day Unchanged ipratropium nasal (Atrovent 0.03% [place]) 2 Sprays Nasal Inhalation 3 times a day Unchanged levalbuterol (levalbuterol 1.25 mg/ 0.5 mL Concentrate) Nebulized inhalation (aerosol) 3 times a day Unchanged metoprolol (metoprolol 100 mg ER Tab) By Mouth Every day Unchanged montelukast (Singulair 10 mg Tab) By Mouth Every day Unchanged multivitamin (Vitamin B Complex oral capsule) By Mouth Every day Unchanged nitroglycerin (nitroglycerin 0.4 mg SubL [place]) Sublingual Every 5 minutes Unchanged pantoprazole (Protonix 40 mg Tab-DR) By Mouth Every day Unchanged potassium chloride (Potassium Chloride (Rfg-Wtsz-Uui 10)) By Mouth 2 times a day Unchanged tamsulosin (Flomax 0.4 mg Cap) By Mouth Every day Unchanged zolpidem (Ambien 10 mg Tab) 1 Tablets By Mouth Once a day (at bedtime) as needed for for sleep Test Results Urnls Dip Stick Auto w/o Microscopy POC 25197 (03/05/2022) Bilirubin Urine Dipstick - Negative Blood Urine Dipstick - Negative Glucose Urine Dipstick - Negative Ketones Urine Dipstick - Negative Leukocytes Urine Dipstick - 1+ Small Nitrite Urine Dipstick - Negative Protein Urine Dipstick - Negative Specific [place] Urine Dipstick - 1.025 Urine Appearance Urine Dipstick - Clear Urine Color Urine Dipstick - Dark yellow Urobilinogen Urine Dipstick - Normal 0.2-1 EU/dl pH Urine Dipstick - 5.5 Allergies Ultram (Paranoia) Problems Ongoing - Any problem that you are currently receiving treatment for. Actinic keratoses Alcohol dependency Arthritis Atrial fibrillation BPH (benign prostatic hyperplasia) Chronic cholecystitis Chronic cough Chronic obstructive pulmonary disease Congestive heart failure Coronary artery disease COVID-19 Diverticulosis Esophageal reflux Esophagitis GERD (gastroesophageal reflux disease) Heart disease Heart murmur Hemorrhoids Hyperlipidemia Insomnia Myocardial infarction Rhinorrhea Shingles Split urinary stream Tonic-clonic seizures Historical - Any problem that you are no longer receiving treatment for. Angina at rest Normal [facility] Covid-19 PCR (CVDTBH)on 10-18 SARS-CoV-2 (COVID-19) RNA KAY+probe Ql (Unsp spec) Detected Critically abnormal NOT DETECTED [facility] Comment on above: Result Comment: This test is not yet approved or cleared by the [place] FDA. When there are no FDA-approved or cleared tests available, and other criteria are met, FDA can make tests available under an emergency access mechanism called an Emergency Use Authorization (EUA). The EUA for this test is supported by the [place] of Health and Human Service's (HHS's) declaration that circumstances exist to justify the emergency use of in vitro diagnostics for the detection and/or diagnosis of the virus that causes COVID-19. This EUA will remain in effect (meaning this test can be used) for the duration of the COVID-19 declaration justifying emergency of IVDs, unless it is terminated or revoked by FDA (after which the test may no longer be used). Performed By: #### C VDTB #### [facility] [address] [place] [address] Dr. Venkat [facility] Metabolic [facility] 04-15-2021 Albumin [Mass/Vol] 4.5 g/dL Normal 3.6-5.1 [facility] Specialist Comment on above: Performed By: #### C MP, LIPD, TSH reflex FT4 #### [facility] [address], [place] [id number] Albumin/Globulin [Mass ratio] 2.1 {ratio} Normal 1.0-2.[address] [facility] Specialist Comment on above: Performed By: #### C MP, LIPD, TSH reflex FT4 #### [facility] [address], [place] [id number] ALP [Catalytic activity/Vol] 328 U/L High 40-[address] [facility] Specialist Comment on above: Performed By: #### C MP, LIPD, TSH reflex FT4 #### [facility] [address], [place] [id number] ALT [Catalytic activity/Vol] 104 U/L High 9-[address] [facility] Specialist Comment on above: Result Comment: 01/16 Female reference range changed. Performed By: #### C MP, LIPD, TSH reflex FT4 #### [facility] [address], [place] [id number] Anion gap [Moles/Vol] 22 mmol/L High 12-20 [facility] Comment on above: Result Comment: Effe ctive 02/21/2019 reference range changed. Performed By: #### C MP, LIPD, TSH reflex FT4 #### [facility] [address], [place] [id number] AST [Catalytic activity/Vol] 86 U/L High 10-[address] [facility] Specialist Comment on above: Result Comment: Spec imen is hemolyzed. Results may be affected. Performed By: #### C MP, LIPD, TSH reflex FT4 #### [facility] [address], [place] [id number] Bilirubin [Mass/Vol] 0.46 mg/dL Normal 0.30-1.20 [facility] Comment on above: Performed By: #### C MP, LIPD, TSH reflex FT4 #### [facility] [address], [place] [id number] BUN/CREA 17 Ratio Normal 6-22 [facility] Comment on above: Performed By: #### C MP, LIPD, TSH reflex FT4 #### [facility] [address], [place] [id number] Calcium [Mass/Vol] 9.5 mg/dL Normal 8.6-10.2 [facility] Comment on above: Performed By: #### C MP, LIPD, TSH reflex FT4 #### [facility] [address], [place] [id number] Chloride [Moles/Vol] 106 mmol/L Normal 98-[address] [facility] Specialist Comment on above: Performed By: #### C MP, LIPD, TSH reflex FT4 #### [facility] [address], [place] [id number] CO2 [Moles/Vol] 20 mmol/L Normal 20-31 [facility] Comment on above: Performed By: #### C MP, LIPD, TSH reflex FT4 #### [facility] [address], [place] [id number] Creatinine [Mass/Vol] 1.0 mg/dL Normal 0.7-1.[address] [facility] Specialist Comment on above: Performed By: #### C MP, LIPD, TSH reflex FT4 #### [facility] [address], [place] [id number] eGFRAA 86 mL/min/1.73m2 Normal >60 [facility] Comment on above: Performed By: #### C MP, LIPD, TSH reflex FT4 #### [facility] [address], [place] [id number] eGFRNAA 71 mL/min/1.73m2 Normal >60 [facility] Comment on above: Performed By: #### C MP, LIPD, TSH reflex FT4 #### [facility] [address], [place] [id number] Globulin (S) [Mass/Vol] 2.1 g/dL Normal 1.9-3.7 [facility] Comment on above: Performed By: #### C MP, LIPD, TSH reflex FT4 #### [facility] [address], [place] [id number] Glucose [Mass/Vol] 92 mg/dL Normal 65-99 [facility] Comment on above: Result Comment: For FASTING Glucose --- ADA reference ranges: Normal 65-99 mg/dl Prediabetes 100-125 Diabetes >/= 126 Performed By: #### C MP, LIPD, TSH reflex FT4 #### [facility] [address], [place] [id number] Potassium [Moles/Vol] 5.0 mmol/L Normal 3.5-5.5 [facility] Comment on above: Result Comment: Spec imen is hemolyzed. Results may be affected. Performed By: #### C MP, LIPD, TSH reflex FT4 #### [facility] [address], [place] [id number] Protein [Mass/Vol] 6.6 g/dL Normal 6.1-8.1 [facility] Comment on above: Performed By: #### C MP, LIPD, TSH reflex FT4 #### [facility] [address], [place] [id number] Sodium [Moles/Vol] 142 mmol/L Normal 135-146 [facility] Comment on above: Performed By: #### C MP, LIPD, TSH reflex FT4 #### [facility] [address], [place] [id number] Urea nitrogen [Mass/Vol] 17 mg/dL Normal 7-[address] [facility] Specialist Comment on above: Performed By: #### C MP, LIPD, TSH reflex FT4 #### [facility] [address], [place] [id number] Lipid Panelon 04-15-2021 Cholesterol [Mass/Vol] 164 mg/dL Normal 125-[address] [facility] Specialist Comment on above: Result Comment: Low risk < 200mg/dL Borderline risk 201-239 mg/dl High risk > or equal to 240 Performed By: #### C MP, LIPD, TSH reflex FT4 #### [facility] [address], [place] [id number] Cholesterol in HDL [Mass/Vol] 49 mg/dL Normal >[address] [facility] Specialist Comment on above: Result Comment: High Cardiovascular Risk HDL <40 mg/dL Low Cardiovascular Risk HDL > or equal to 60 mg/dl Performed By: #### C MP, LIPD, TSH reflex FT4 #### [facility] [address], [place] [id number] Cholesterol in LDL [Mass/Vol] 95 mg/dL Normal [facility] Specialist Comment on above: Result Comment: LDL ATP III CLASSIFICATION LDL less than 100 mg/dl Optimal LDL 100-129 mg/dl Near or above optimal LDL 130-159 Borderline high LDL 160-189 High LDL greater than 189 mg/dl Very High Performed By: #### C MP, LIPD, TSH reflex FT4 #### [facility] [address], [place] [id number] Cholesterol in VLDL [Mass/Vol] 20 mg/dL Normal [facility] Specialist Comment on above: Performed By: #### C MP, LIPD, TSH reflex FT4 #### [facility] [address], [place] [id number] Cholesterol.total/C holesterol in HDL [Mass ratio] 3 {ratio} Normal [facility] Specialist Comment on above: Performed By: #### C MP, LIPD, TSH reflex FT4 #### [facility] [address], [place] [id number] Triglyceride [Mass/Vol] 99 mg/dL Normal 30-[address] [facility] Specialist Comment on above: Result Comment: TRIG ATPIII CLASSIFICATIONS TRIG less than 150 mg/dl Normal TRIG 150-199 mg/dl Borderline High TRIG 200-500 mg/dl High TRIG greather than 500 mg/dl Very High Performed By: #### C MP, LIPD, TSH reflex FT4 #### [facility] [address] [place] [id number] TSH w/ Reflex to Free T4on 0 04-15-2021 TSH 2.400 uIU/mL Normal 0.400-4.500 [facility] Comment on above: Performed By: #### C MP, LIPD, TSH reflex FT4 #### [facility] [address], [place] [id number] CHEST AND LATERALon 09-26-19 CHEST AND LATERAL [facility] Department of Radiology [address] [place] [address] == Patient Name: DC RASMUSSEN : 1935 Sex: M Age: Race: White Pt. 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 Follow up. History of COPD. QUESTION FOR THE RADIOLOGIST: , , , Ordering Provider - JAUN MAYFIELD MD , PROTOCOL: AP(PA) and Lateral views were obtained. COMPARISON: September 11, 2019 FINDINGS: Bilateral pleural effusions showing improvement since the previous exam. Minimal atelectasis noted in the left base, lungs otherwise clear. The heart, mediastinum and pulmonary vascularity are within normal is. The trachea is in midline and the osseous structures are intact with sternotomy wires. IMPRESSION: Improvement in bilateral pleural effusions. Electronically signed: Zain Stanton. Transcribed by: [email or web address], User Resident: Electronically Signed by: ZAIN STANTON @ 09/26/2019 03:09 PM Normal [facility] Comment on above: Order Comment: , , = ========= , Ordering Provider - JAUN MAYFIELD MD , CNCOon 10-06-2016 CNCO Letter MohanNosonali Mina [facility] Trinh MD [id number] [facility] [id number]: [phone] Jztito Barry, MD[address] [place] [id number] Oglesby,Thank you for referring Mr. Rasmussen for evaluation. He was a great delight tosee here. Below I have transcribed the clinic note from our visit last week.Briefly, I am most suspicious that he developed an eosinophilic drug rashfrom either the antibiotics from his inpatient stay, the anticonvulsants, orboth. I anticipate that the eosinophilia well continue to resolve (if it hasnot completely resolved) since he was switched to the Keppra.He did have a couple of CBCs for me to review and it looks like hiseosinophilia is trending down. I've asked him to get a CBC with differentialrechecked on his next visit with you and would be grateful if you couldforward the results to me.Please feel free to contact me anytime at if you have furtherquestions with his evaluation or if he develops any new findings that youwould like to discuss.Axel Dodson 2016This is a request for consultation by Nolan Bautista II, MD for theevaluation of edema, rash, eosinophilia. My evaluation, opinion andrecommendations will be communicated to the referring provider via EMR or viaUSPS.?Dc Rasmussen is a pleasant 81 year old year old patient who presents forevaluation of several issues that have occurred over the past 12 months. Hereports that he was overall in very good health for his age until aboutNovember of last year. He developed pneumonia complicated by some mentalstatus changes. He was admitted to the hospital where he received multipletreatments including antibiotics. He underwent an intensive workup for alung nodule at that time that was thought to be possibly malignant. This hassince been ruled out by CT, PET scan.Although he cannot provide significant details of the hospitalization, sergio remember being discharged from the hospital with a rash. Sincedischarge she has had a very pruritic rash that he describes as looking verysimilar to measles. These rashes were not associated with GI complaints,nausea, vomiting, fevers, joint pain, or known renal dysfunction. 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 The rash has occurred approximately 5 times sincedischarge from the hospital in December 2015. In addition to the biopsy hereports he was usually given a corticosteroid injection which cleared therash for several weeks but the rash would always recur, usually within 2weeks. Of note, he has been free of rashes since approximately July of thisyear.About 2 months ago he experienced painless swelling of the neck, eyelids, andlips. The swelling was not associated with urticaria, rashes, itching. Noinvolvement of the oral mucosa, no shortness of breath, difficultyswallowing, wheezing, nausea, vomiting was noted. No swelling of the hands,lips, or abdomen was present to his knowledge.This was once again treated with steroids and and symptoms gradually resolvedover the course of 3-4 weeks.He is now back at baseline and has not experienced a rash in the last 8weeks. The swelling has essentially resolved. He does have some swellingunder the eyes which is about baseline for him.Approximately 10 days ago he was switched to a new anticonvulsant, Keppra,and seems to be tolerating this very well.About 6 medications were discontinued when the drug rash was diagnosed. Thisincludes long-term preventive medicine such as statins. Currently onlytaking Keppra, Prilosec, furosemide, potassium, Flomax, and baby aspirin.??REVIEW OF SYSTEMS:GENERAL: Denies fever, chills, night sweats, or changes in weight.DERM: Denies any new skin conditions, rashes or changing moles.EYES: Denies recent visual changes.ENT: Denies hearing loss or tinnitusRESP: Denies any cough, dyspnea, or wheezing.CV: Denies any chest pain with exertion or at rest, palpitations, syncope, oredema.GI: Denies any nausea, vomiting, abdominal pain, heartburn, changes in bowelhabitMUSCULOSKELETA L: Denies any joint swelling, joint pain, or loss of range ofmotion., Denies back pain.NEURO: Denies any headaches, tremors, dizziness, vertigo, memory loss,confusion., Denies weakness, numbness or tingling.All other review of systems negative except for those listed above.?EXAM:Blood pressure 184/91, pulse 75, SpO2 98 %.APPEARANCE: Alert, in no acute distressEYES: sclera non-icteric, conjunctiva non-injectedEARS: External ears normal. Canals clear. tympanic membranes normal.NOSE/SINUS: Nares normal. Mucosa normal. No drainage or sinus tenderness.OROPHARYNX: Lips, tongue normal. Oropharynx clear.THROAT: no erythemaNECK: neck supple, no adenopathyHEART: Regular rate, regular rhythm, S1 normal and S2 normalLUNG: clear to auscultationLYMPH NODES: No cervical lymphadenopathyABDOMEN: soft, nontender, nondistendedEXTREMITIES: No clubbing, No cyanosis and No edemaNEURO: Awake, alert and oriented x 3, Normal gait and No involuntary motions.SKIN: Skin color, texture, turgor normal. No rashes or lesions.?LAB ANDDIAGNOSTIC STUDIES: No indication for allergy skin testing withtoday's visit. 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 The symptoms do not sound consistent with a moresevere drug reaction such as DRESS syndrome, or Sauceda-Marvin syndrome.Although eosinophilic processes such as eosinophilic pneumonia orChurg-Preston vasculitis are considered, I think these are not likely.The angioedema he reports is resolved. Is currently taking ibuprofen 800 forpain without symptoms so I am not suspicious of NSAID-induced angioedema. Heis currently not on an JAYLIN inhibitor so jaylin-induced angioedema is alsounlikely. No secondary symptoms that make me suspicious for an acquiredangioedema associated with lymphoma.No specific treatment recommendations were made today. The patient signedmedical release is and I would like to review hospital discharge summary fromDecember 2015, recent clinical notes from his primary physician, and skinbiopsy results from the osteopathy doctor.I agree with the current plan to reintroduce medications every 4-6 weeks astolerated and as clinically appropriateI would like to recheck a CBC with differential to see where the eosinophilcount is today. We discussed doing [facility] the [facility] but thepatient would like to have his primary physician do that. I will ask him toforward me those results when they become available.If clinically appropriate, we'll do additional testing or recommendations fortesting including workup for Churg-Preston, eosinophilic pneumonia, acquiredangioedema as appropriate. As noted above I think these conditions areunlikely,?I will contact the patient by telephone when I am able to review previousmedical records. Otherwise, he will follow-up as needed?Jose Trinh MD?This note was partially generated using [employer] voice recognition system, andthere may be some incorrect words, spellings, and punctuation that were notnoted in checking the note before saving.???Sincerely,Sweta Trinh MD(Signed electronically to expedite processing) Normal [facility] CNCO Letter Iglesia hoskins Trinh MD [id number] [facility] [id number]: [phone] Nbvhdt 2016Nolan Bautista MD[address] [place] [id number] Bautista,Thank you for referring Mr. Rasmussen for evaluation. He was a great delight tosee here. Below I have transcribed the clinic note from our visit last week.Briefly, I am most suspicious that he developed an eosinophilic drug rashfrom either the antibiotics from his inpatient stay, the anticonvulsants, orboth. I anticipate that the eosinophilia well continue to resolve (if it hasnot completely resolved) since he was switched to the Keppra.He did have a couple of CBCs for me to review and it looks like hiseosinophilia is trending down. I've asked him to get a CBC with differentialrechecked on his next visit with you and would be grateful if you couldforward the results to me.Please feel free to contact me anytime at if you have furtherquestions with his evaluation or if he develops any new findings that youwould like to discuss.Axel TrinhAugust 2016This is a request for consultation by Nolan Bautista II, MD for theevaluation of edema, rash, eosinophilia. My evaluation, opinion andrecommendations will be communicated to the referring provider via EMR or viaUSPS.?Dc Rasmussen is a pleasant 81 year old year old patient who presents forevaluation of several issues that have occurred over the past 12 months. Hereports that he was overall in very good health for his age until aboutNovember of last year. He developed pneumonia complicated by some mentalstatus changes. He was admitted to the hospital where he received multipletreatments including antibiotics. He underwent an intensive workup for alung nodule at that time that was thought to be possibly malignant. This hassince been ruled out by CT, PET scan.Although he cannot provide significant details of the hospitalization, hedoes remember being discharged from the hospital with a rash. Sincedischarge she has had a very pruritic rash that he describes as looking verysimilar to measles. These rashes were not associated with GI complaints,nausea, vomiting, fevers, joint pain, or known renal dysfunction. 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 The rash has occurred approximately 5 times sincedischarge from the hospital in December 2015. In addition to the biopsy hereports he was usually given a corticosteroid injection which cleared therash for several weeks but the rash would always recur, usually within 2weeks. Of note, he has been free of rashes since approximately July of thisyear.About 2 months ago he experienced painless swelling of the neck, eyelids, andlips. The swelling was not associated with urticaria, rashes, itching. Noinvolvement of the oral mucosa, no shortness of breath, difficultyswallowing, wheezing, nausea, vomiting was noted. No swelling of the hands,lips, or abdomen was present to his knowledge.This was once again treated with steroids and and symptoms gradually resolvedover the course of 3-4 weeks.He is now back at baseline and has not experienced a rash in the last 8weeks. The swelling has essentially resolved. He does have some swellingunder the eyes which is about baseline for him.Approximately 10 days ago he was switched to a new anticonvulsant, Keppra,and seems to be tolerating this very well.About 6 medications were discontinued when the drug rash was diagnosed. Thisincludes long-term preventive medicine such as statins. Currently onlytaking Keppra, Prilosec, furosemide, potassium, Flomax, and baby aspirin.??REVIEW OF SYSTEMS:GENERAL: Denies fever, chills, night sweats, or changes in weight.DERM: Denies any new skin conditions, rashes or changing moles.EYES: Denies recent visual changes.ENT: Denies hearing loss or tinnitusRESP: Denies any cough, dyspnea, or wheezing.CV: Denies any chest pain with exertion or at rest, palpitations, syncope, oredema.GI: Denies any nausea, vomiting, abdominal pain, heartburn, changes in bowelhabitMUSCULOSKELETA L: Denies any joint swelling, joint pain, or loss of range ofmotion., Denies back pain.NEURO: Denies any headaches, tremors, dizziness, vertigo, memory loss,confusion., Denies weakness, numbness or tingling.All other review of systems negative except for those listed above.?EXAM:Blood pressure 184/91, pulse 75, SpO2 98 %.APPEARANCE: Alert, in no acute distressEYES: sclera non-icteric, conjunctiva non-injectedEARS: External ears normal. Canals clear. tympanic membranes normal.NOSE/SINUS: Nares normal. Mucosa normal. No drainage or sinus tenderness.OROPHARYNX: Lips, tongue normal. Oropharynx clear.THROAT: no erythemaNECK: neck supple, no adenopathyHEART: Regular rate, regular rhythm, S1 normal and S2 normalLUNG: clear to auscultationLYMPH NODES: No cervical lymphadenopathyABDOMEN: soft, nontender, nondistendedEXTREMITIES: No clubbing, No cyanosis and No edemaNEURO: Awake, alert and oriented x 3, Normal gait and No involuntary motions.SKIN: Skin color, texture, turgor normal. No rashes or lesions.?LAB ANDDIAGNOSTIC STUDIES: No indication for allergy skin testing withtoday's visit. 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 The symptoms do not sound consistent with a moresevere drug reaction such as DRESS syndrome, or Sauceda-Marvin syndrome.Although eosinophilic processes such as eosinophilic pneumonia orChurg-Preston vasculitis are considered, I think these are not likely.The angioedema he reports is resolved. Is currently taking ibuprofen 800 forpain without symptoms so I am not suspicious of NSAID-induced angioedema. Heis currently not on an JAYLIN inhibitor so jaylin-induced angioedema is alsounlikely. No secondary symptoms that make me suspicious for an acquiredangioedema associated with lymphoma.No specific treatment recommendations were made today. The patient signedmedical release is and I would like to review hospital discharge summary fromDecember 2015, recent clinical notes from his primary physician, and skinbiopsy results from the osteopathy doctor.I agree with the current plan to reintroduce medications every 4-6 weeks astolerated and as clinically appropriateI would like to recheck a CBC with differential to see where the eosinophilcount is today. We discussed doing when [facility] but thepatient would like to have his primary physician do that. I will ask him toforward me those results when they become available.If clinically appropriate, we'll do additional testing or recommendations fortesting including workup for Churg-Preston, eosinophilic pneumonia, acquiredangioedema as appropriate. As noted above I think these conditions areunlikely,?I will contact the patient by telephone when I am able to review previousmedical records. Otherwise, he will follow-up as needed?Jose Trinh MD [facility] CNOVon 09-29-2016 CNOV Office Visit (VANIA) NOÉ RASMUSSEN ([id number]) [address] [facility] Department09/29/16 1:30 PM JOSE TRINH During your visit today, we recorded the following information about you: Pulse Blood pressure 75/minute 184/91Jose Trinh MD 09/29/2016 2:19 PM SignedPlease have CBC with differential rechecked with your primary physician andhave it forwarded to me to see how the eosinophil count has changed since this year.I will review clinic notes, hospital discharge summary, pertinent labsincluding skin biopsy and we'll discuss any further workup if needed bytelephone after I am able to review these.If the rash returns, please contact our clinic so we may arrange an officevisit in 1-2 days for further evaluation of this.Jose Trinh MD 10/07/2016 8:23 AM SignedThis is a request for consultation by Nolan Bautista II, MD for the evaluationof edema, rash, eosinophilia. My evaluation, opinion and recommendations willbe communicated to the referring provider via EMR or via USPS.Dc Rasmussen is a pleasant 81 year old year old patient who presents forevaluation of several issues that have occurred over the past 12 months. Hereports that he was overall in very good health for his age until aboutNovember of last year. He developed pneumonia complicated by some mentalstatus changes. He was admitted to the hospital where he received multipletreatments including antibiotics. He underwent an intensive workup for a lungnodule at that time that was thought to be possibly malignant. This has sincebeen ruled out by CT, PET scan.Although he cannot provide significant details of the hospitalization, he doesremember being discharged from the hospital with a rash. Since discharge mileshas had a very pruritic rash that he describes as looking very similar tomeasles. These rashes were not associated with GI complaints, nausea,vomiting, fevers, joint pain, or known renal dysfunction. No lesions of thepalms, soles of the feet, or oral lesions were reported.He was also diagnosed with a convulsive disorder and was started on antiseizuremedicines early in 2016.He was seen by a osteopathy doctor and underwent a skin biopsy and was told thatthe rash was a drug rash. The rash has occurred approximately 5 times sincedischarge from the hospital in December 2015. In addition to the biopsy hereports he was usually given a corticosteroid injection which cleared the rashfor several weeks but the rash would always recur, usually within 2 weeks. Ofnote, he has been free of rashes since approximately July of this year.About 2 months ago he experienced painless swelling of the neck, eyelids, andlips. The swelling was not associated with urticaria, rashes, itching. Noinvolvement of the oral mucosa, no shortness of breath, difficulty swallowing,wheezing, nausea, vomiting was noted. No swelling of the hands, lips, orabdomen was present to his knowledge.This was once again treated with steroids and and symptoms gradually resolvedover the course of 3-4 weeks.He is now back at baseline and has not experienced a rash in the last 8 weeks.The swelling has essentially resolved. He does have some swelling under theeyes which is about baseline for him.Approximately 10 days ago he was switched to a new anticonvulsant, Keppra, andseems to be tolerating this very well.About 6 medications were discontinued when the drug rash was diagnosed. Thisincludes long-term preventive medicine such as statins. Currently only takingKeppra, Prilosec, furosemide, potassium, Flomax, and baby aspirin.Past Medical History:No past medical history on file.Past Surgical History:No past surgical history on file.Allergies:Albuterol ; Lidocaine; Percocet [Oxycodone-Acetaminophen ]; Ultram [Tramadol]Current Outpatient Prescriptions:tamsulosin ER (FLOMAX) 0.4 mg cp24 Take 0.4 mg by mouth.furosemide (LASIX) 40 mg tablet Take 40 mg by mouth twice daily.potassium chloride 20 mEq/50 mL IVPB Inject 20 mEq intravenously one time only.levETIRAcetam (KEPPRA) 500 mg tablet Take 500 mg by mouth twice daily.Omeprazole (PRILOSEC) 40 mg capsule Take 40 mg by mouth once daily.aspirin (ASPIRIN CHILDRENS) 81 mg chewable tablet Take 81 mg by mouth oncedaily.VIT B COMPLEX 100 NO.2/HERBS (VITAMIN B COMPLEX 100 2-HERBS ORAL) Take bymouth.Ascorbic Acid (VITAMIN C) 1,000 mg tablet Take 1,000 mg by mouth once daily.Multivitamin capsule Take 1 capsule by mouth once daily.zolpidem (AMBIEN) 10 mg tab Take by mouth at bedtime as needed.No current facility-administered medications for this visit.Social History Marital status: Spouse name: Years of education: Number of children:Social History Main TopicsFamily History:No family history on file.ENVIRONMENTAL HISTORYENVIRONMENTAL HISTORYREVIEW OF SYSTEMS:GENERAL: Denies fever, chills, night sweats, or changes in weight.DERM: Denies any new skin conditions, rashes or changing moles.EYES: Denies recent visual changes.ENT: Denies hearing loss or tinnitusRESP: Denies any cough, dyspnea, or wheezing.CV: Denies any chest pain with exertion or at rest, palpitations, syncope, oredema.GI: Denies any nausea, vomiting, abdominal pain, heartburn, changes in bowelhabitMUSCULOSKELETA L: Denies any joint swelling, joint pain, or loss of range ofmotion., Denies back pain.NEURO: Denies any headaches, tremors, dizziness, vertigo, memory loss,confusion., Denies weakness, numbness or tingling.All other review of systems negative except for those listed above.EXAM:Blood pressure 184/91, pulse 75, SpO2 98 %.APPEARANCE: Alert, in no acute distressEYES: sclera non-icteric, conjunctiva non-injectedEARS: External ears normal. Canals clear. tympanic membranes normal.NOSE/SINUS: Nares normal. Mucosa normal. No drainage or sinus tenderness.OROPHARYNX: Lips, tongue normal. Oropharynx clear.THROAT: no erythemaNECK: neck supple, no adenopathyHEART: Regular rate, regular rhythm, S1 normal and S2 normalLUNG: clear to auscultationLYMPH NODES: No cervical lymphadenopathyABDOMEN: soft, nontender, nondistendedEXTREMITIES: No clubbing, No cyanosis and No edemaNEURO: Awake, alert and oriented x 3, Normal gait and No involuntary motions.SKIN: Skin color, texture, turgor normal. No rashes or lesions.LAB ANDamp;DIAGNOSTIC STUDIES: No indication for allergy skin testing withtoday's visit. 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 The symptoms do not sound consistent with a moresevere drug reaction such as DRESS syndrome, or Sauceda-Marvin syndrome.Although eosinophilic processes such as eosinophilic pneumonia or Churg-Straussvasculitis are considered, I think these are not likely.The angioedema he reports is resolved. Is currently taking ibuprofen 800 forpain without symptoms so I am not suspicious of NSAID-induced angioedema. Heis currently not on an JAYLIN inhibitor so jaylin-induced angioedema is alsounlikely. No secondary symptoms that make me suspicious for an acquiredangioedema associated with lymphoma.No specific treatment recommendations were made today. The patient signedmedical release is and I would like to review hospital discharge summary fromDecember 2015, recent clinical notes from his primary physician, and skinbiopsy results from the osteopathy doctor.I agree with the current plan to reintroduce medications every 4-6 weeks astolerated and as clinically appropriateI would like to recheck a CBC with differential to see where the eosinophilcount is today. We discussed doing when here at the [facility] but thepatient would like to have his primary physician do that. I will ask him toforward me those results when they become available.If clinically appropriate, we'll do additional testing or recommendations fortesting including workup for Churg-Preston, eosinophilic pneumonia, acquiredangioedema as appropriate. As noted above I think these conditions areunlikely,I will contact the patient by telephone when I am able to review previousmedical records. Otherwise, he will follow-up as neededJose Trinh MDThikeeley note was partially generated using [employer] voice recognition system, andthere may be some incorrect words, spellings, and punctuation that were notnoted in checking the note before saving.?Referring Provider: NOLAN BAUTISTA II [[id number]]Allergies As of Date: 09/29/2016 Noted Allergy ReactionALBUTEROL 09/29/2016 14 - Other: See Comments Comments: migrainesLIDOCAINE 09/29/2016 5 - IntolerancePERCOCET (OXYCODONE-ACETAMINOPHEN )09/29/2016 1 - Mental Status ChangeULTRAM (TRAMADOL) 09/29/2016 1 - Mental Status ChangeDate Reviewed: 09/29/2016Reviewed by: Yaneli Kapadia - Fully AssessedReason for Visit: Consult [173] Cmt: cough x 1 year - pneumonia in 12/2015 - developed rash in hospitalPrimary Visit Diagnosis:Drug rash [L27.0] Other Visit Diagnosis: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 FUROSEMIDE 40 MG TABLET Take 40 mg by mouth twice aysha* POTASSIUM CHLORIDE 20 MEQ/50 * Inject 20 mEq intravenously o* LEVETIRACETAM 500 MG TABLET Take 500 mg by mouth twice da* OMEPRAZOLE 40 MG CAPSULE,GAMAL* Take 40 mg by mouth once rambo* ASPIRIN 81 MG CHEWABLE TABLET Take 81 mg by mouth once rambo* VITAMIN B COMPLEX 100 2-HERB* Take by mouth. ASCORBIC ACID (VITAMIN C) 1,0* Take 1,000 mg by mouth once d* MULTIVITAMIN CAPSULE Take 1 capsule by mouth once * ZOLPIDEM 10 MG TABLET Take by mouth at bedtime as *Problem List As Of Date: 09/29/2016(None) Other instructions from your clinician: Please have CBC with differential rechecked with your primary physician and have it forwarded to me to see how the eosinophil count has changed since July of this year. I will review clinic notes, hospital discharge summary, pertinent labs including skin biopsy and we'll discuss any further workup if needed by telephone after I am able to review these. If the rash returns, please contact our clinic so we may arrange an office visit in 1-2 days for further evaluation of this. Status:Closed by JOSE TRINH MD on 10/07/16 [facility] PROGRESSon 09-29-2016 PROGRESS HNO ID: [id number]: Jose TrinhSer: (none)Author Type: PhysicianType: Progress NotesFiled: 10/07/2016 8:23 AMNote Text:This is a request for consultation by Nolan Bautista II, MD for theevaluation of edema, rash, eosinophilia. My evaluation, opinion andrecommendations will be communicated to the referring provider via EMR orvia USPS.Dc Rasmussen is a pleasant 81 year old year old patient who presents forevaluation of several issues that have occurred over the past 12 months.He reports that he was overall in very good health for his age until aboutNovember of last year. He developed pneumonia complicated by some mentalstatus changes. He was admitted to the hospital where he receivedmultiple treatments including antibiotics. He underwent an intensiveworkup for a lung nodule at that time that was thought to be possiblymalignant. This has since been ruled out by CT, PET scan.Although he cannot provide significant details of the hospitalization, sergio remember being discharged from the hospital with a rash. Sincedischarge she has had a very pruritic rash that he describes as lookingvery similar to measles. These rashes were not associated with GIcomplaints, nausea, vomiting, fevers, joint pain, or known renaldysfunction. 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 The rash has occurred approximately 5times since discharge from the hospital in December 2015. In addition tothe biopsy he reports he was usually given a corticosteroid injectionwhich cleared the rash for several weeks but the rash would always recur,usually within 2 weeks. Of note, he has been free of rashes sinceapproximately July of this year.About 2 months ago he experienced painless swelling of the neck, eyelids,and lips. The swelling was not associated with urticaria, rashes,itching. No involvement of the oral mucosa, no shortness of breath,difficulty swallowing, wheezing, nausea, vomiting was noted. No swellingof the hands, lips, or abdomen was present to his knowledge.This was once again treated with steroids and and symptoms graduallyresolved over the course of 3-4 weeks.He is now back at baseline and has not experienced a rash in the last 8weeks. The swelling has essentially resolved. He does have some swellingunder the eyes which is about baseline for him.Approximately 10 days ago he was switched to a new anticonvulsant, Keppra,and seems to be tolerating this very well.About 6 medications were discontinued when the drug rash was diagnosed.This includes long-term preventive medicine such as statins. Currentlyonly taking Keppra, Prilosec, furosemide, potassium, Flomax, and babyaspirin.Past Medical History:No past medical history on file.Past Surgical History:No past surgical history on file.Allergies:Albuterol ; Lidocaine; Percocet [Oxycodone-Acetaminophen ]; Ultram[Tramadol]Current Outpatient Prescriptions:tamsulosin ER (FLOMAX) 0.4 mg cp24 Take 0.4 mg by mouth.furosemide (LASIX) 40 mg tablet Take 40 mg by mouth twice daily.potassium chloride 20 mEq/50 mL IVPB Inject 20 mEq intravenously one timeonly.levETIRAcetam (KEPPRA) 500 mg tablet Take 500 mg by mouth twice daily.Omeprazole (PRILOSEC) 40 mg capsule Take 40 mg by mouth once daily.aspirin (ASPIRIN CHILDRENS) 81 mg chewable tablet Take 81 mg by mouth oncedaily.VIT B COMPLEX 100 NO.2/HERBS (VITAMIN B COMPLEX 100 2-HERBS ORAL) Takeby mouth.Ascorbic Acid (VITAMIN C) 1,000 mg tablet Take 1,000 mg by mouth oncedaily.Multivitamin capsule Take 1 capsule by mouth once daily.zolpidem (AMBIEN) 10 mg tab Take by mouth at bedtime as needed.No current facility-administered medications for this visit.Social History Marital status: Spouse name: Years of education: Number of children:Social History Main TopicsFamily History:No family history on file.ENVIRONMENTAL HISTORYENVIRONMENTAL HISTORYREVIEW OF SYSTEMS:GENERAL: Denies fever, chills, night sweats, or changes in weight.DERM: Denies any new skin conditions, rashes or changing moles.EYES: Denies recent visual changes.ENT: Denies hearing loss or tinnitusRESP: Denies any cough, dyspnea, or wheezing.CV: Denies any chest pain with exertion or at rest, palpitations, syncope,or edema.GI: Denies any nausea, vomiting, abdominal pain, heartburn, changes inbowel habitMUSCULOSKELETAL: Denies any joint swelling, joint pain, or loss of rangeof motion., Denies back pain.NEURO: Denies any headaches, tremors, dizziness, vertigo, memory loss,confusion., Denies weakness, numbness or tingling.All other review of systems negative except for those listed above.EXAM:Blood pressure 184/91, pulse 75, SpO2 98 %.APPEARANCE: Alert, in no acute distressEYES: sclera non-icteric, conjunctiva non-injectedEARS: External ears normal. Canals clear. tympanic membranes normal.NOSE/SINUS: Nares normal. Mucosa normal. No drainage or sinus tenderness.OROPHARYNX: Lips, tongue normal. Oropharynx clear.THROAT: no erythemaNECK: neck supple, no adenopathyHEART: Regular rate, regular rhythm, S1 normal and S2 normalLUNG: clear to auscultationLYMPH NODES: No cervical lymphadenopathyABDOMEN: soft, nontender, nondistendedEXTREMITIES: No clubbing, No cyanosis and No edemaNEURO: Awake, alert and oriented x 3, Normal gait and No involuntarymotions.SKIN: Skin color, texture, turgor normal. No rashes or lesions.LAB ANDDIAGNOSTIC STUDIES: No indication for allergy skin testing withtoday's visit. The patient had some labs with him today and was notablefor an eosinophilic absolute count of 1280 in January 2016 andapproximately 800 in July 2016.ASSESSMENT/PLANDRUG RASH WITH EOSINOPHILIAPatient is currently asymptomatic, the reported history does suggest aneosinophilic drug rash, likely secondary to either an antibiotic while hewas an inpatient and/or anticonvulsant medicine which has a highassociation with eosinophilic drug rashes. The symptoms do not soundconsistent with a more severe drug reaction such as DRESS syndrome, orStevens-Marvin syndrome.Although eosinophilic processes such as eosinophilic pneumonia orChurg-Preston vasculitis are considered, I think these are not likely.The angioedema he reports is resolved. Is currently taking ibuprofen 800for pain without symptoms so I am not suspicious of NSAID-inducedangioedema. He is currently not on an JAYLIN inhibitor so jaylin-inducedangioedema is also unlikely. No secondary symptoms that make mesuspicious for an acquired angioedema associated with lymphoma.No specific treatment recommendations were made today. The patient signedmedical release is and I would like to review hospital discharge summaryfrom December 2015, recent clinical notes from his primary physician, andskin biopsy results from the osteopathy doctor.I agree with the current plan to reintroduce medications every 4-6 weeksas tolerated and as clinically appropriateI would like to recheck a CBC with differential to see where theeosinophil count is today. We discussed doing when here at the [facility] but the patient would like to have his primary physician do that.I will ask him to forward me those results when they become available.If clinically appropriate, we'll do additional testing or recommendationsfor testing including workup for Churg-Preston, eosinophilic pneumonia,acquired angioedema as appropriate. As noted above I think theseconditions are unlikely,I will contact the patient by telephone when I am able to review previousmedical records. Otherwise, he will follow-up as neededJose Trinh MDThikeeley note was partially generated using [employer] voice recognition system,and there may be some incorrect words, spellings, and punctuation thatwere not noted in checking the note before saving.? Normal [facility] Vital Signs Date Time Vital Sign Value Performing Clinician Abena bales 03-05-2022 14:39-0500 Blood Pressure Location Akbar Ugalde [facility] 03-05-2022 14:39-0500 Diastolic blood pressure 80 mm[Hg] Akbar Ugalde [facility] 03-05-2022 14:39-0500 Heart rate 74 /min Akbar Ugalde [facility] 03-05-2022 14:39-0500 Systolic blood pressure 151 mm[Hg] Akbar Ugalde [facility] Encounters Encounter Date Encounter Type Care Provider Facility Start: 06-01-2023 End: 06-01-2023 ambulatory NOLAN BAUTISTA Not Available Start: 05-05-2023 End: 05-05-2023 ambulatory VENECIA BROWNLEE Not Available Start: 03-05-2023 ambulatory ALE FAN Facili ty:[facility] [place] Start: 03-05-2023 End: 03-05-2023 Patient encounter procedure ALE FAN [facility] Start: 02-19-2023 End: 02-19-2023 ambulatory NOLAN BAUTISTA Not Available Start: 01-06-2023 End: 01-06-2023 ambulatory [facility] Start: 11-21-2022 End: 11-21-2022 ambulatory [facility] Start: 10-31-2022 Evaluation and management of inpatient DEIDRE ENIX [facility] Start: 10-28-2022 Evaluation and management of inpatient JENN SHANE [facility] Start: 10-28-2022 Evaluation and management of inpatient FABIANO BRODY [facility] Start: 10-28-2022 ambulatory ALE FAN Facility : [facility] Start: 10-27-2022 End: 10-31-2022 Evaluation and management of inpatient BUD CIFUENTES [facility] Start: 06-25-2022 End: 06-26-[address] DOCTOR MONTEMAYOR Facility:[facility] Start: 06-16-2022 End: 06-16-2022 [facility]: 05-22-2022 End: 05-23-2022 ambulatory ALE FAN Facility:[facility] [place] Start: 03-24-2022 End: 03-25-2022 ambulatory Papa REYNA Facility:[facility] [place] Start: 03-24-2022 End: 03-24-2022 Patient encounter procedure Papa REYNA [facility] [place] Start: 03-05-2022 End: 03-06-2022 ambulatory Akbar Ugalde Facility:[facility] [place] Start: 03-05-2022 End: 03-05-2022 Patient encounter procedure Akbar Ugalde [facility] Start: 01-23-2022 ambulatory ALE FAN Facility :[facility] [place] Start: 11-11-2021 End: 11-11-[address] NOLAN BAUTISTA Facility: Start: 09-29-2016 End: 09-29-2016 Ambulatory JOSE Dewayne TRINH [facility] Procedures Date Procedure Procedure Detail Performing Clinician Start: 03-24-2022 Cystoscope, device (physical object) Papa REYNA Start: 09-07-2019 Open removal of foreign body from left atrium Akbar Ugalde Comment on above: removal foreign body lt atrium, repair o f perforation, cryomaze procedure, ASD closure Start: 02-01-2019 Esophagogastroduodenoscopy Akbar yuen Start: 12-17-2018 Laparoscopic cholecystectomy Akbar herrera Start: 05-06-2017 Colonoscopy Akbar Ugalde Start: 02-16-2002 Hernia repair Akbar Ugalde Comment on above: x2 Start: 02-16-1995 Angioplasty of blood vessel Akbar presley Comment on above: with stent Start: 02-17-1968 Vasectomy Akbar Ugalde Start: 02-16-1954 Tonsillectomy Akbar Ugalde Cataract (disorder) Akbar Ugalde Cholecystectomy Akbar presley Excision of parapharyngeal mass Akbar Ugalde Comment on above: r/o pharyngeal mass Tonsillectomy Akbar Steele ns Immunizations Immunization Date Immunization Notes Care Provider Gallo [facility] 02-05-2022 SARS-CoV-2 (COVID-19 ) [id number] ALE FAN [facility] 12-23-2021 influenza virus vaccine, unspecified formulation ALE MEGHAN [facility] 02-11-2021 SARS-CoV-2 (COVID-19 ) mRNA-1273 vaccine ALE MEGHAN [facility] 12-05-2020 influenza virus vaccine, unspecified formulation ALE MEGHAN [facility] 04-10-2020 tetanus toxoid, redu alon diphtheria toxoid, and acellular pertussis vaccine, adsorbed ALE MEGHAN [facility] 04-05-2020 SARS-CoV-2 (COVID-19 ) mRNA-1273 vaccine ALE MEGHAN [facility] 03-05-2020 SARS-CoV-2 (COVID-19 ) mRNA-1273 vaccine ALE MEGHAN [facility] 01-06-2019 influenza virus vaccine, unspecified formulation ALE MEGHAN [facility] 01-21-2018 influenza virus vaccine, unspecified formulation ALE MEGHAN [facility] 11-25-2016 influenza virus vaccine, unspecified formulation ALE FAN [facility] 04-06-2015 pneumococcal conjuga te vaccine, 13 valent ALE FAN [facility] 01-22-2015 influenza virus vaccine, unspecified formulation ALE FAN [facility] 12-21-2006 influenza, whole ALE ZUNIGA RRY [facility] Payers Date Payer Category Payer Medicare [id number] 1957 Department of [facility] [address] ( and others) [id number] 1957 Medicare [id number] 1935 Unknown [id number] 1937 Unknown [id number] 1937 Unknown [id number] 1937 Unknown [id number] 1937 Unknown [id number] 1937 Unknown [id number] 1937 Unknown [id number] 1937 Unknown [id number] 1937 Unknown [id number] Social History Date Type Detail Facility Start: 03-05-2022 Tobacco smoking status Ex-smoker (fi nding) [facility] Tobacco smoking status Never [facility] Sex Assigned At Male [facility] Functional Status Date Assessment Result Facility 03-24-2022 Functional Status N/A [facility] 03-05-2022 Functional Status N/A [facility] Clinical Notes 03-24-2022 to 01-06-2023 Note Date & Type Note Facility 01-06-2023 Note Cardiology Clinic No te Subjective Dc Rasmussen is a 87 y.o. year old male patient with coronary artery disease, status post stenting of the RCA and the LAD seen in follow-up. Patient Active Problem List Diagnosis Localized edema Lower urinary tract symptoms due to benign prostatic hyperplasia Pharyngeal abscess Status post percutaneous transluminal coronary angioplasty Abnormal findings on diagnostic imaging of liver and biliary tract Abnormal tomography of chest Actinic keratoses Alcohol dependency (CMS/HCC) Allergic rhinitis Allergy to soap Arthritis Atherosclerosis of coronary artery without angina pectoris Basal cell carcinoma of face Benign prostatic hyperplasia Cervical spondylosis without myelopathy Chronic cholecystitis Chronic cough Chronic obstructive pulmonary disease (CMS/HCC) Cardiac tamponade COVID-19 Difficulty walking Disorder of lung Diverticulosis Enlarged prostate Eosinophilia Exacerbation of asthma Fatty liver Arrhythmia Heart murmur Hemorrhoids Hyperlipidemia Hypertensive heart disease with congestive heart failure (CMS/HCC) Hypokalemia Incomplete bladder emptying Late effect of internal injury to chest Menieres disease Mucopurulent chronic bronchitis (CMS/HCC) Poor diet Peripheral venous insufficiency Paroxysmal atrial fibrillation (CMS/HCC) Otitis externa Myocardial infarction (CMS/HCC) Seizure disorder (CMS/HCC) Rhinorrhea Pure hypercholesterolemia Primary insomnia Shingles Split urinary stream Ventricular premature beats Vasomotor rhinitis Tonic-clonic seizures (CMS/HCC) Thoracic aortic aneurysm without rupture (CMS/HCC) Terminal esophageal web Elevated LFTs Abnormal finding of diagnostic imaging Carcinoma of prostate (CMS/HCC) Diastolic heart failure, stage B (CMS/HCC) Edema due to malnutrition (CMS/HCC) Generalized osteoarthritis Generalized seizure (CMS/HCC) History of cholecystectomy Laceration of heart with penetration of heart chambers Pharyngeal mass Primary osteoarthritis, right shoulder S/P coronary artery stent placement Schatzki's ring 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 Social History Tobacco Use Smoking status: Former Types: Cigarettes Smokeless tobacco: Never HPI Visit of 01/27/2019: He is an 83-year-old man, who was previously evaluated in Cardiology Clinic by Dr. Nolan Amezquita because of new onset symptoms of shortness of breath on exertion. He has prior history of coronary artery disease, status post stenting of the RCA and the LAD in the past. A stress test showed inferior ischemia. He underwent cardiac catheterization in September 2018 with stenting of the LAD with a drug-eluting stent. He did well after that. He also has recent onset atrial fibrillation and was started on anticoagulation therapy. He has past history of seizures. In December 2018 he underwent laparoscopic cholecystectomy. Following that he sustained abdominal bleeding. He was admitted to [facility]. His aspirin was stopped and then he continued to be on Plavix and Eliquis. Currently he reports that he has no chest pain and nauseous of breath. He has no lower extremity edema. He has no palpitations. He has no appetite. He also had rectal bleeding. He is being planned for a GI Endoscopy procedure. They are requesting to stop Eliquis 3 days before. He is also here to review the possibility of watchman as an alternative to long-term anticoagulation due to bleeding. Update 04/05/2019: He is seen in follow-up. He has been doing well. He underwent upper endoscopy that did not show source of bleeding. He has no chest pain. He has dyspnea on moderate exertion, relieved by rest. No palpitations. No leg swelling. He continues to have rectal bleeding intermittently. He uses a cane to ambulate due to balance issues. Update 08/17/2019: He is seen in follow up via telemedicine. He has been well since last visit. He has not had events since then. No chest pain and no dyspnea. ECG today 08/17/2019: SR with 1st degree AV block, LAD, old inferior infarct. QING 04/21/2019: The left ventricle is normal size. Global left ventricular systolic function is normal. The EF is 65 % visually. The right ventricle is normal in size. Normal right ventricular systolic function. Left Atrium Appendage: No thrombus is identified. No intracardiac shunt by agitated saline injections. The left atrial appendage appears suitable for a watchman device however it could not be imaged above 115 degrees. If clinically necessary could consider Cardiac CT for complete characterization. Visit of 01/11/2020: He is seen in follow-up. He was admitted on 01/09/2020 with chest pain. He reports that he has developed 2 episodes of chest pain, located in the center of the chest. The pain (more content not included)... [facility] 01-06-2023 Note Patient here for 6 w pamunkey follow up CAD, PAF, and HFpEF. He was restarted on lasix at last visit. He has taken himself off of amiodarone due to dry mouth and loss of appetite. PCP increased his metoprolol to 125mg daily, and he's taking 75mg in the AM and 50mg in the PM. Down 11# since last visit. Review of Systems Constitutional: Positive for weight loss (11# since 11/21/2022). Cardiovascular: Positive for leg swelling (improving). Respiratory: Positive for cough. Musculoskeletal: Positive for muscle weakness. Neurological: Positive for weakness. All other systems reviewed and are negative. [facility] 11-21-2022 Note Patient here for fol low up TBH for afib w/ RVR. He was started on amiodarone. Furosemide was stopped and he is now c/o LE edema. Denies chest pain, SOB, lightheadedness, and palpitations. Review of Systems Cardiovascular: Positive for leg swelling. Respiratory: Positive for cough. Musculoskeletal: Positive for muscle weakness. Neurological: Positive for weakness. All other systems reviewed and are negative. [facility] 11-21-2022 Note Cardiology Clinic No te Subjective Dc Rasmussen is a 87 y.o. year old male patient with coronary artery disease, status post stenting of the RCA and the LAD seen in follow-up. Patient Active Problem List Diagnosis Localized edema Lower urinary tract symptoms due to benign prostatic hyperplasia Pharyngeal abscess Status post percutaneous transluminal coronary angioplasty Abnormal findings on diagnostic imaging of liver and biliary tract Abnormal tomography of chest Actinic keratoses Alcohol dependency (CMS/HCC) Allergic rhinitis Allergy to soap Arthritis Atherosclerosis of coronary artery without angina pectoris Basal cell carcinoma of face Benign prostatic hyperplasia Cervical spondylosis without myelopathy Chronic cholecystitis Chronic cough Chronic obstructive pulmonary disease (CMS/HCC) Cardiac tamponade COVID-19 Difficulty walking Disorder of lung Diverticulosis Enlarged prostate Eosinophilia Exacerbation of asthma Fatty liver Arrhythmia Heart murmur Hemorrhoids Hyperlipidemia Hypertensive heart disease with congestive heart failure (CMS/HCC) Hypokalemia Incomplete bladder emptying Late effect of internal injury to chest Menieres disease Mucopurulent chronic bronchitis (CMS/HCC) Poor diet Peripheral venous insufficiency Paroxysmal atrial fibrillation (CMS/HCC) Otitis externa Myocardial infarction (CMS/HCC) Seizure disorder (CMS/HCC) Rhinorrhea Pure hypercholesterolemia Primary insomnia Shingles Split urinary stream Ventricular premature beats Vasomotor rhinitis Tonic-clonic seizures (CMS/HCC) Thoracic aortic aneurysm without rupture (CMS/HCC) Terminal esophageal web Elevated LFTs Abnormal finding of diagnostic imaging Carcinoma of prostate (CMS/HCC) Diastolic heart failure, stage B (CMS/HCC) Edema due to malnutrition (CMS/HCC) Generalized osteoarthritis Generalized seizure (CMS/HCC) History of cholecystectomy Laceration of heart with penetration of heart chambers Pharyngeal mass Primary osteoarthritis, right shoulder S/P coronary artery stent placement Schatzki's ring 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 Social History Tobacco Use Smoking status: Former Types: Cigarettes Smokeless tobacco: Never HPI Visit of 01/27/2019: He is an 83-year-old man, who was previously evaluated in Cardiology Clinic by Dr. Nolan Amezquita because of new onset symptoms of shortness of breath on exertion. He has prior history of coronary artery disease, status post stenting of the RCA and the LAD in the past. A stress test showed inferior ischemia. He underwent cardiac catheterization in September 2018 with stenting of the LAD with a drug-eluting stent. He did well after that. He also has recent onset atrial fibrillation and was started on anticoagulation therapy. He has past history of seizures. In December 2018 he underwent laparoscopic cholecystectomy. Following that he sustained abdominal bleeding. He was admitted to [facility]. His aspirin was stopped and then he continued to be on Plavix and Eliquis. Currently he reports that he has no chest pain and nauseous of breath. He has no lower extremity edema. He has no palpitations. He has no appetite. He also had rectal bleeding. He is being planned for a GI Endoscopy procedure. They are requesting to stop Eliquis 3 days before. He is also here to review the possibility of watchman as an alternative to long-term anticoagulation due to bleeding. Update 04/05/2019: He is seen in follow-up. He has been doing well. He underwent upper endoscopy that did not show source of bleeding. He has no chest pain. He has dyspnea on moderate exertion, relieved by rest. No palpitations. No leg swelling. He continues to have rectal bleeding intermittently. He uses a cane to ambulate due to balance issues. Update 08/17/2019: He is seen in follow up via telemedicine. He has been well since last visit. He has not had events since then. No chest pain and no dyspnea. ECG today 08/17/2019: SR with 1st degree AV block, LAD, old inferior infarct. QING 04/21/2019: The left ventricle is normal size. Global left ventricular systolic function is normal. The EF is 65 % visually. The right ventricle is normal in size. Normal right ventricular systolic function. Left Atrium Appendage: No thrombus is identified. No intracardiac shunt by agitated saline injections. The left atrial appendage appears suitable for a watchman device however it could not be imaged above 115 degrees. If clinically necessary could consider Cardiac CT for complete characterization. Visit of 01/11/2020: He is seen in follow-up. He was admitted on 01/09/2020 with chest pain. He reports that he has developed 2 episodes of chest pain, located in the center of the chest. The pain (more content not included)... [facility] 10-31-2022 Note Please close. Inpati ent consult for rash. I discussed results with patient. Biopsy showed healing rash. 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 He notes the rash is improving. For now, no follow-up needed [facility] 10-31-2022 Note Hospital Medicine Discharge Summary Final Discharge Diagnosis: Generalized macular rash/eruption . Skin biopsy Neutrophilic leukocytosis Transaminitis - mild Abdominal Lymphadenopathy Paroxysmal atrial fibrillation CAD Ascending aortic dilatation Admission Diagnosis: Elevated LFTs [R79.89] Hospital course: Dc Rasmussen is a 87 y.o. male who has PMHx of alcohol dependence, quit 40 years ago, chronically elevated LFTs secondary to fatty liver disease, CAD s/p PCI, a fib not on anticoagulation, who presented to OSH due to fatigue and weakness. Patient reports that he has been experiencing weakness and inability to get around easily. He denies abdominal pain. He reports some nausea, fevers, chills. Decreased appetite over the last several months. At OSH, CT scan was performed that revealed concern for non-specific fat stranding in the kristine hepatis centered around the extrahepatic bile duct concerning for possible cholangitis vs reactive changes. He was also found to have lymphadenopathy throughout. MRCP was performed that was poor quality due to motion artifact, but was negative for biliary ductal dilation. Patient was [facility] to [facility] for GIevaluation. He was treated with steroids. Given his abdominal lymphadenopathy, leukocytosis GI was consulted. He had repeat MRCP that was unremarkable. GI recommended outpatient follow-up. Dermatology was also consulted for rash he underwent skin biopsy and dermatology is planning to follow-up as outpatient once biopsy results comes back. He has no other complaints at this time and eager to go home. He was discharged home in stable medical condition. Dear Dr. Michele MD, [facility] is advised to follow up with you within 1-2 weeks. Follow-up with: Gastroenterology and dermatology Scheduled appointments: No future appointments. Your medication list CHANGE how you take these medications Instructions Last Dose Given Next Dose Due metoprolol succinate XL 50 mg 24 hr tablet Commonly known as: Toprol-XL What changed: Another medication with the same name was changed. Make sure you understand how and when to take each. Take 1 tablet (50 mg) by mouth in the morning. metoprolol succinate XL 50 mg 24 hr tablet Commonly known as: Toprol-XL Start taking on: November 01, 2022 What changed: medication strength how much to take when to take this Take 1 tablet (50 mg) by mouth in the morning for 95 doses. Do not crush or chew. Do not start before November 01, 2022. CONTINUE taking these medications Instructions Last Dose Given Next Dose Due acetaminophen 500 mg tablet Commonly known as: Tylenol atorvastatin 20 mg tablet Commonly known as: Lipitor cetirizine 10 mg tablet Commonly known as: ZyrTEC diazePAM 5 mg tablet Commonly known as: Valium diphenhydrAMINE 25 mg capsule Commonly known as: BENADryl fluticasone 50 mcg/actuation nasal spray Commonly known as: Flonase furosemide 40 mg tablet Commonly known as: Lasix hydrocortisone 2.5 % ointment ipratropium 42 mcg (0.06 %) nasal spray Commonly known as: Atrovent Notes to patient: PRESCRIBED levalbuterol 1.25 mg/3 mL nebulizer solution Commonly known as: Xopenex montelukast 10 mg tablet Commonly known as: Singulair qzbmxogu-kkfchoair-GC 3.5-10,000-10 mg-unit-mg/mL ophthalmic suspension Commonly known as: Cortisporin nitroglycerin 400 mcg/spray spray Commonly known as: NitrolinguaL potassium chloride CR 20 mEq ER tablet Commonly known as: Klor-Con M20 tamsulosin 0.4 mg 24 hr capsule Commonly known as: Flomax zolpidem 10 mg tablet Commonly known as: Ambien Where to Get Your Medications These medications were sent to [facility] - [address] [place] [address] [address] [facility] [place] [address], [facility] [address] metoprolol succinate XL 50 mg 24 hr tablet Dc Crawford is allergic to tramadol, albuterol, codeine-guaifenesin, ether, levofloxacin, lidocaine, oxycodone hcl, and oxycodone-acetaminophen. Disposition: Home-Health Care [facility] [place] Discharge Condition: Stable Code Status: Prior Diagnostic Results Hematology: Results from last 7 days Lab Units 10/31/22 0433 10/30/22 0959 10/30/22 0757 10/29/22 0847 WBC AUTO 10*3/uL 12.80* -- 16.02* -- HEMOGLOBIN g/dL 12.4* -- 12.1* -- HEMATOCRIT % 36.5* -- 35.9* -- MCV fL 85.5 -- 86.1 -- PLATELETS AUTO 10*3/uL 328 -- 270 -- INR -- 1.20* -- 1.34* Chemistry: Results from last 7 days Lab Units 10/31/22 0434 10/30/22 0748 10/29/22 0647 SODIUM mmol/L 137 135* 137 POTASSIUM mmol/L 3.7 4.3 3.3* CHLORIDE mmol/L 106 107 108* CO2 mmol/L 25 23 24 BUN mg/dL 16 14 14 CREATININE mg/dL 0.95 0.79 0.97 GLUCOSE mg/dL 84 112* 91 CALCIUM mg/dL 8.3* 8.3* 8.2* Results from last 7 days Lab Units 10/31/22 0434 10/30/22 0748 10/29/22 0647 AST U/L 42* 67* 155* ALT U/L 90* 115* 142* ALK PHOS U/L 231* 2 (more content not included)... [facility] 10-31-2022 Note Hospital Medicine Daily Progress Note - 10/31/2022 3:13 PM; Room: [address] [place] [address] Admission: 10/27/2022 2:17 PM; Length of stay: 1 days THE HOSPITALIST TEAM PREFERS TO USE [employer] CHAT FOR COMMUNICATION 7AM-7PM. IF I DO NOT RESPOND WITHIN 15 MINUTES, PLEASE PAGE ME/CALL THROUGH THE [employer]. FROM 7PM-7AM, PLEASE PAGE [phone](COVR) Code Status: Full Code Discharge Destination: home Discharge planning: MRCP done report pending and GI recommendations. Overview Patient is seen for evaluation and management of Suspected cholangitis. Subjective Patient is seen and examined at bedside for follow-up. No acute events overnight. He denies any chest pain, shortness of breath, dizziness or diaphoresis. He also denies any fever, chills, nausea, vomiting or diarrhea. He has no other complaints at this time. Physical Exam Visit Vitals BP (!) 152/92 Pulse 79 Temp 36.4 ???C (97.6 ???F) Resp 18 Intake/Output Summary (Last 24 hours) at 10/31/2022 1513 Last data filed at 10/31/2022 0457 Gross per 24 hour Intake -- Output 900 ml Net -900 ml Physical Exam General: alert, no acute distress Head: normocephalic, nontraumatic Neck: supple, no JVD Lungs: clear to auscultation bilateral, no wheezing, nonlabored CV: regular rate and rhythm, no murmur Abdomen: soft, nontender, nondistended, bowel sounds are positive Extremities: No edema, pulses are palpable, equal and bilateral Neuro: no acute focal deficit. Skin: maculopapular rash on trunk Psych: Stable mood Estimated body mass index is 25.87 kg/m??? as calculated from the following: Height as of this encounter: 1.905 m (6' 3 ). Weight as of this encounter: 93.9 kg (207 lb). Active Inpatient Problems Principal Problem: Elevated LFTs Assessment and Plan Generalized macular rash/eruption - status post biopsy - dermatology will follow-up outpatient after biopsy results comes back Neutrophilic leukocytosis - was elevated prior to starting steroids at OSH Transaminitis - mild, low suspicion for cholangitis. Trending up Abdominal Lymphadenopathy Paroxysmal atrial fibrillation CAD Ascending aortic dilatation - From records that I can see, it appears he has had a similar rash intermittently over the past 4 years and is has been thought to be 2/2 drug allergy. One comment seemed to connect it to crestor. In the past he improved on IM steroids. I see lipitor listed in his home med list, though he denies starting any new medications. He states he has tolerated lipitor for years. - Patient has dermatology appointment tomorrow at 9am. - Will give a second dose of solumedrol 40mg IV today and follow up dermatology recommendations tomorrow. -Given the abdominal lymphadenopathy, the leukocytosis which began prior to steroid administration at OSH. He may need a biopsy of the rash lesions. - Follow up GI team recommendation d/t indeterminant Hep A findings and uptrending LFTs. - MRCP done today report pending. - Continue current medications VTE Prophylaxis: Heparin subcutaneous Scheduled Meds fluticasone, 1 spray, Each Nostril, Daily heparin (porcine), 5,000 Units, subcutaneous, q12h PETE hydrocortisone, , Topical, BID metoprolol succinate XL, 50 mg, oral, Daily Pertinent Investigations Hematology: Results from last 7 days Lab Units 10/31/22 0433 10/30/22 0959 10/30/22 0757 10/29/22 0847 WBC AUTO 10*3/uL 12.80* -- 16.02* -- HEMOGLOBIN g/dL 12.4* -- 12.1* -- HEMATOCRIT % 36.5* -- 35.9* -- MCV fL 85.5 -- 86.1 -- PLATELETS AUTO 10*3/uL 328 -- 270 -- INR -- 1.20* -- 1.34* Chemistry: Results from last 7 days Lab Units 10/31/22 0434 10/30/22 0748 10/29/22 0647 SODIUM mmol/L 137 135* 137 POTASSIUM mmol/L 3.7 4.3 3.3* CHLORIDE mmol/L 106 107 108* CO2 mmol/L 25 23 24 BUN mg/dL 16 14 14 CREATININE mg/dL 0.95 0.79 0.97 GLUCOSE mg/dL 84 112* 91 CALCIUM mg/dL 8.3* 8.3* 8.2* Results from last 7 days Lab Units 10/31/22 0434 10/30/22 0748 10/29/22 0647 AST U/L 42* 67* 155* ALT U/L 90* 115* 142* ALK PHOS U/L 231* 248* 227* BILIRUBIN TOTAL mg/dL 0.7 0.8 1.0 BILIRUBIN DIRECT mg/dL 0.2 0.4* 0.5* Historical Values: (Includes values prior to this admission) Lab Results Component Value Date TSH 0.91 10/27/2022 Lab Results Component Value Date [id number] 1,187 (H) 10/27/2022 IRON 85 10/27/2022 TIBC 215 (L) 10/27/2022 Imaging US abdomen limited liver Narrative: US ABDOMEN LIMITED LIVER CLINICAL INFORMATION: Cirrhosis. HCC, portal vein thrombosis. COMPARISON: None. FINDINGS: The liver demonstrates abnormal echogenicity with a lobulated contour. The liver measures 15.0 cm. The portal vein is patent. Common bile duct measures 6 mm. Gallbladder is surgically absent. Trace right pleural effusion. Impression: *Abnormal echogenicity of the liver consistent with diffuse hepatocellular disease such as fatty infiltration. This limits evaluation for focal hepatic lesions, however (more content not included)... [facility] 10-31-2022 Note [facility] GI Gastroenterology/Hepatology Progress Note IDENTIFYING DATA PATIENT: Dc Rasmussen ADMIT DATE: 10/27/2022 TIME OF EVALUATION: 10/31/2022 1:04 PM HOSPITAL STAY: LOS: 1 day REASON FOR HOSPITALIZATION: Elevated LFT's, concern for cholangitis SUBJECTIVE/INTERVAL HISTORY Dc Rasmussen's overnight events were reviewed. Pt resting in chair comfortably. Denies any abd pain, rash is improving, MRCP completed, awaiting results. OBJECTIVE MEDICATIONS SCHEDULED: @MEDSCURRENTMD@ PRNs: sodium chloride, 10 mL, q8h PRN Physical VITALS: BP (!) 152/92 Pulse 79 Temp 36.4 ???C (97.6 ???F) Resp 18 Ht 1.905 m (6' 3 ) Wt 93.9 kg (207 lb) SpO2 95% BMI 25.87 kg/m??? GEN: alert and oriented x3 CV: No edema visualized PULM: Respirations even and unlabored ABD: soft, non-tender NEURO: moves all 4 extremities spontaneously SKIN: no rashes PSYCH: normal affect, friendly LABS AND IMAGING CBC: Lab Results Component Value Date WBC 12.80 (H) 10/31/2022 RBC 4.27 10/31/2022 HGB 12.4 (L) 10/31/2022 HCT 36.5 (L) 10/31/2022 MCV 85.5 10/31/2022 RDW 15.9 (H) 10/31/2022 PLT 328 10/31/2022 CMP: Lab Results Component Value Date NA 137 10/31/2022 K 3.7 10/31/2022 CL 106 10/31/2022 CO2 25 10/31/2022 BUN 16 10/31/2022 PROT 6.8 10/31/2022 IMAGING: LIVER ULTRASOUND 10/29/2022: IMPRESSION: *Abnormal echogenicity of the liver consistent with diffuse hepatocellular disease such as fatty infiltration. This limits evaluation for focal hepatic lesions, however, no lesions are identified. *Portal vein is patent. *Consider MRI as indicated. ASSESSMENT AND PLAN Dc Rasmussen is a 87 y.o. male who has PMHx of alcohol dependence, quit 40 years ago, chronically elevated LFTs secondary to fatty liver disease, CAD s/p PCI, a fib not on anticoagulation, who presented to OSH due to fatigue and weakness. Patient reports that he has been experiencing weakness and inability to get around easily. He denies abdominal pain. He reports some nausea, fevers, chills. Decreased appetite over the last several months. Denies weight loss. Patient denies previous hx of liver disease, no family hx of liver disease. At OSH, CT scan was performed that revealed concern for non-specific fat stranding in the kristine hepatis centered around the extrahepatic bile duct concerning for possible cholangitis vs reactive changes. He was also found to have lymphadenopathy throughout. MRCP was performed that was poor quality due to motion artifact, but was negative for biliary ductal dilation. Patient was transferred to [facility] for GI evaluation. 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, suggestive for autoimmune hepatitis Leukocytosis and diffuse rash and weakness raise concern for inflammatory condition A fib not on anticoagulation Plan: Anti-smooth muscle antibody 48, will repeat testing and consider further testing based on results, in process Continue to trend LFTs and INR (MELD) MRCP ordered s/p liver ultrasound, persistent LFT elevation and intraabdominal adenopathy, pending MRCP completed at [facility] was severely degraded r/t motion artifact, pt states he was not told he was moving and agreeable to remain still during the test Follow up on punch biopsy of rash Patient would like to follow up with a testing tech that is closer to home following discharge for further care of chronic liver disease Medical management per primary The case will be discussed with the attending physician For Questions please contact us at: [facility] GI Service 6am to 4pm weekdays in house Phone: [phone] 4pm to 6am or weekends please contact the service control operator to page the motion designer fellow [facility] 10-31-2022 Note This report has been cancelled. [facility] 10-30-2022 Note Hospital Medicine Daily Progress Note - 10/30/2022 10:36 AM; Room: [facility]/4108- Admission: 10/27/2022 2:17 PM; Length of stay: 0 days THE HOSPITALIST TEAM PREFERS TO USE [employer] CHAT FOR COMMUNICATION 7AM-7PM. IF I DO NOT RESPOND WITHIN 15 MINUTES, PLEASE PAGE ME/CALL THROUGH THE GRAIN I FARMWORKER. FROM 7PM-7AM, PLEASE PAGE [phone](COVR) Code Status: Full Code Discharge Destination: home Discharge plannin day Overview Patient is seen for evaluation and management of suspected cholangitis. Subjective Patient seen and examined at bedside, is present. Patient has returned from his visit with dermatology today. He denies any acute concerns. He denies any nausea, vomiting, fever, chills, or pruritus to his generalized rash. and patient states that rash to his back is improving. Patient further denies any abdominal pain, diarrhea, or generalized fatigue. 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 Physical Exam Visit Vitals BP 156/74 Pulse 66 Temp 36.6 ???C (97.9 ???F) (Oral) Resp 19 Intake/Output Summary (Last 24 hours) at 10/30/2022 1036 Last data filed at 10/30/2022 0519 Gross per 24 hour Intake -- Output 1250 ml Net -1250 ml Physical Exam Vitals and nursing note reviewed. HENT: Head: Normocephalic. Right Ear: External ear normal. Left Ear: External ear normal. Ears: Comments: Hearing aids Nose: Nose normal. Mouth/Throat: Mouth: Mucous membranes are moist. Eyes: Pupils: Pupils are equal, round, and reactive to light. Cardiovascular: Rate and Rhythm: Normal rate. Pulses: Normal pulses. Pulmonary: Effort: Pulmonary effort is normal. Abdominal: Tenderness: There is no abdominal tenderness. There is no guarding. Musculoskeletal: General: Normal range of motion. Cervical back: Normal range of motion. Skin: General: Skin is warm. Findings: Rash present. Comments: Maculopapular rash present to bilateral lower extremities, trunk, and back, blanchable, nonpruritic no tenderness, no open ulcers or lesions Neurological: General: No focal deficit present. Mental Status: He is alert and oriented to person, place, and time. Psychiatric: Mood and Affect: Mood normal. Behavior: Behavior normal. Estimated body mass index is 26.73 kg/m??? as calculated from the following: Height as of this encounter: 1.905 m (6' 3 ). Weight as of this encounter: 97 kg (213 lb 13.5 oz). Active Inpatient Problems Principal Problem: Elevated LFTs Assessment and Plan Generalized macular rash/eruption Rash is blanchable, nonpruritic present to BLE, trunk, back, and chest Patient was examined by dermatology today and biopsy was obtained From records in patient chart, it appears he has had a similar rash intermittently over the past 4 years and is has been thought to be 2/2 drug allergy. One comment seemed to connect it to crestor. In the past he improved on IM steroids. Patient was given a second dose of IV Solumedrol 40mg yesterday Continues with hydrocortisone 1% ointment Neutrophilic leukocytosis Abdominal Lymphadenopathy Elevated prior to starting steroids at OSH WBC 16 today. Patient is without fever, chills, generalized fatigue Recommend hematology/oncology follow up for persistent leukocytosis work-up present of continued generalized macular rash and abdominal lymphadenopathy found on imaging from outside hospital .. rule out malignancy? Transaminitis Indeterminate Hep A Hep A antibody lab draw recheck is nonreactive Abdominal ultrasound on 10/27 with suggestion of fatty liver GI following recommendation of MR and MRCP of abdomen; Keep patient NPO for this imaging. Paroxysmal atrial fibrillation CAD Ascending aortic dilatation Nutrition Screen VTE Prophylaxis: Heparin subcutaneous Scheduled Meds fluticasone, 1 spray, Each Nostril, Daily heparin (porcine), 5,000 Units, subcutaneous, q12h PETE hydrocortisone, , Topical, BID metoprolol succinate XL, 50 mg, oral, Daily Pertinent Investigations Hematology: Results from last 7 days Lab Units 10/30/22 0959 10/30/22 0757 10/29/22 0847 10/29/22 0647 WBC AUTO 10*3/uL -- 16.02* -- 15.59* HEMOGLOBIN g/dL -- 12.1* -- 12.4* HEMATOCRIT % -- 35.9* -- 35.4* MCV fL -- 86.1 -- 84.5 PLATELETS AUTO 10*3/uL -- 270 -- 266 INR 1.20* -- 1.34* -- Chemistry: Results from last 7 days Lab Units 10/30/22 0748 10/29/22 0647 10/27/22 1452 SODIUM mmol/L 135* 137 139 POTASSIUM mmol/L 4.3 3.3* 3.9 CHLORIDE mmol/L 107 108* 109* CO2 mmol/L 23 24 21 BUN mg/dL 14 14 20 CREATININE mg/dL 0.79 0.97 0.92 GLUCOSE mg/dL 112* 91 110* CALCIUM mg/dL 8.3* 8.2* 8.5* Results from last 7 days Lab Units 10/30/22 0748 10/29/22 0647 10/27/22 1452 AST U/L 67* 155* 39 ALT U/L 115* 142* 72* ALK PHOS U/L 248* 227* 210* BILIRUBIN TOTAL mg/dL 0.8 1.0 0.9 BILIRUBIN DIRECT mg/dL 0.4* 0.5* 0.3* Historical Values: (Includes values prior to this admissi (more content not included)... [facility] 10-30-2022 Note Subjective Mr. Ty Rasmussen is a pleasant 87 yoM admitted for elevated LFTs and has been consulted with Dermatology for a new eruption. Onset about a month ago when he picked his up from her hospital discharge. It started on the chest and spread inferiorly. It is not itchy. No pain associated. No prior treatment attempts. He notes an eruptive rash several years ago, saw [facility], had a biopsy. Wash told it was an allergy to a soap, then medications. He tried to stop multiple medications, changed soap without relief. The rash resolved. Today he denies any new medications over the counter or prescription, no dose adjustment in medications over the past few months. He would like to figure out what is the cause of the rash and it is causing him distress mentally. -------- Consult order placed for dermatology. This is not a progress note, but a consult note. I cannot change the text box above due to Epic restrictions. Objective Patient Vitals for the past 24 hrs: BP Temp Temp src Pulse Resp SpO2 10/30/22 0800 156/74 36.6 ???C (97.9 ???F) Oral 66 19 97 % 10/30/22 0000 148/77 -- -- 65 17 95 % 10/29/22 2121 150/79 -- -- 74 22 93 % 10/29/222017 (!) 149/100 36.7 ???C (98 ???F) Oral 77 22 96 % 10/29/22 1635 156/78 36.5 ???C (97.7 ???F) Oral 76 17 95 % 10/29/22 1200 144/77 -- -- 78 22 94 % Physical Exam Constitutional: Appearance: Normal appearance. He is normal weight. HENT: Head: Normocephalic and atraumatic. Right Ear: External ear normal. Left Ear: External ear normal. Nose: Nose normal. Mouth/Throat: Mouth: Mucous membranes are moist. Eyes: Extraocular Movements: Extraocular movements intact. Conjunctiva/sclera: Conjunctivae normal. Skin: General: Skin is warm and dry. Neurological: General: No focal deficit present. Mental Status: He is alert. Mental status is at baseline. Psychiatric: Mood and Affect: Mood normal. Behavior: Behavior normal. Thought Content: Thought content normal. Judgment: Judgment normal. Lab Results Component Value Date NA 135 (L) 10/30/2022 K 4.3 10/30/2022 CL 107 10/30/2022 ANIONGAP 9 10/30/2022 BUN 14 10/30/2022 CREATININE 0.79 10/30/2022 CALCIUM 8.3 (L) 10/30/2022 MG 2.3 09/10/2019 PHOS 2.7 09/09/2019 Lab Results Component Value Date BILITOT 0.8 10/30/2022 BILIDIR 0.4 (H) 10/30/2022 ALKPHOS 248 (H) 10/30/2022 AST 67 (H) 10/30/2022 ALT 115 (H) 10/30/2022 PROT 6.7 10/30/2022 ALBUMIN 2.7 (L) 10/30/2022 Lab Results Component Value Date WBC 16.02 (H) 10/30/2022 RBC 4.17 (L) 10/30/2022 HGB 12.1 (L) 10/30/2022 HCT 35.9 (L) 10/30/2022 MCV 86.1 10/30/2022 MCH 29.0 10/30/2022 MCHC 33.7 10/30/2022 RDW 15.6 (H) 10/30/2022 NEUTOPHILPCT 81.8 (H) 10/27/2022 LYMPHOPCT 10.4 (L) 10/27/2022 MONOPCT 4.2 (L) 10/27/2022 EOSPCT 0.3 10/27/2022 BASOPCT 0.1 10/27/2022 NEUTROABS 18.0 (H) 10/27/2022 EOSABS 0.07 10/27/2022 BASOSABS 0.02 10/27/2022 PLT 270 10/30/2022 NRBC 0.0 10/27/2022 No results found for this or any previous visit from the past 1 day. Nutrition Screen Informed consent: Discussed the risks (permanent scarring, light or dark discoloration, infection, pain, bleeding, bruising, redness, blister formation, and recurrence of the lesion) and the benefits of the procedure, as well as the alternatives. Informed consent was obtained. Anesthesia: 0.8ml lidocaine 2% with epinephrine Site: left chest The area was prepared and draped in a standard fashion. The skin was then stretched perpendicular to the skin tension lines and the lesion removed using a 4 mm punch. The resulting ellipse was then closed. The wound was closed with 5-0 chromic gut using simple running stitches. Antibiotic ointment and a sterile dressing applied. The specimen was sent for pathologic examination. The patient tolerated the procedure well. The patient was instructed on post-op care/instruction handout given. -Do not remove bandage until 10/31. Then starting 10/31, wash gently with soap and water, pat dry with clean towel, then apply small dab of white petroleum ointment (in care package), then cover with a bandaid. Repeat daily for the next week. Assessment/Plan L98.9 (rash of skin and subcutaneous tissue): The rash is diffuse, and the differential includes subacute lupus erythematosus, pigmented purpuric dermatosis, patch granuloma annulare. Recommend punch biopsy to help elucidate the etiology of the rash. Patient consented to the biopsy and a dissolvable suture placed. I will contact the patient with the results (expected return is late Thursday or early next week) and then discuss treatment plan. The rash is not symptomatic, no concern for Santi Johnsonkeeley, so will not treat the rash until the pathology results finalize to help guide treatment algorithm. Will sign off until biopsy results finalized and then plan to follow-up with patient as an outpatie (more content not included)... [facility] 10-30-2022 Note Consent for biopsy [facility] 10-30-2022 Note [facility] GI Gastroenterology/Hepatology Progress Note IDENTIFYING DATA PATIENT: Dc Rasmussen ADMIT DATE: 10/27/2022 TIME OF EVALUATION: 10/30/2022 10:25 AM HOSPITAL STAY: LOS: 0 days REASON FOR HOSPITALIZATION: Elevated LFT's, concern for cholangitis SUBJECTIVE/INTERVAL HISTORY Dc Rasmussen's overnight events were reviewed. Pt sitting at the side of the bed, just returned from dermatology s/p biopsy of rash. Pt reports he feels well, denies abd pain. OBJECTIVE MEDICATIONS SCHEDULED: @MEDSCURRENTMD@ PRNs: sodium chloride, 10 mL, q8h PRN Physical VITALS: BP 156/74 Pulse 66 Temp 36.6 ???C (97.9 ???F) (Oral) Resp 19 Ht 1.905 m (6' 3 ) Wt 97 kg (213 lb 13.5 oz) SpO2 97% BMI 26.73 kg/m??? GEN: alert and oriented x3 CV: No edema visualized PULM: Respirations even and unlabored ABD: soft, non-tender NEURO: moves all 4 extremities spontaneously SKIN: no rashes PSYCH: normal affect, friendly LABS AND IMAGING CBC: Lab Results Component Value Date WBC 16.02 (H) 10/30/2022 RBC 4.17 (L) 10/30/2022 HGB 12.1 (L) 10/30/2022 HCT 35.9 (L) 10/30/2022 MCV 86.1 10/30/2022 RDW 15.6 (H) 10/30/2022 PLT 270 10/30/2022 CMP: Lab Results Component Value Date NA 135 (L) 10/30/2022 K 4.3 10/30/2022 CL 107 10/30/2022 CO2 23 10/30/2022 BUN 14 10/30/2022 PROT 6.7 10/30/2022 IMAGING: LIVER ULTRASOUND 10/29/2022: IMPRESSION: *Abnormal echogenicity of the liver consistent with diffuse hepatocellular disease such as fatty infiltration. This limits evaluation for focal hepatic lesions, however, no lesions are identified. *Portal vein is patent. *Consider MRI as indicated. ASSESSMENT AND PLAN Dc Rasmussen is a 87 y.o. male who has PMHx of alcohol dependence, quit 40 years ago, chronically elevated LFTs secondary to fatty liver disease, CAD s/p PCI, a fib not on anticoagulation, who presented to OSH due to fatigue and weakness. Patient reports that he has been experiencing weakness and inability to get around easily. He denies abdominal pain. He reports some nausea, fevers, chills. Decreased appetite over the last several months. Denies weight loss. Patient denies previous hx of liver disease, no family hx of liver disease. At OSH, CT scan was performed that revealed concern for non-specific fat stranding in the kristine hepatis centered around the extrahepatic bile duct concerning for possible cholangitis vs reactive changes. He was also found to have lymphadenopathy throughout. MRCP was performed that was poor quality due to motion artifact, but was negative for biliary ductal dilation. Patient was transferred to [facility] for GI evaluation. 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, suggestive for autoimmune hepatitis Leukocytosis and diffuse rash and weakness raise concern for inflammatory condition A fib not on anticoagulation Plan: Anti-smooth muscle antibody 48, will repeat testing and consider further testing based on results Continue to trend LFTs and INR (MELD) MRCP ordered s/p liver ultrasound, persistent LFT elevation MRCP completed at [facility] was severely degraded r/t motion artifact, pt states he was not told he was moving and agreeable to remain still during the test Follow up on punch biopsy of rash Medical management per primary The case will be discussed with the attending physician For Questions please contact us at: [facility] GI Service 6am to 4pm weekdays in house Phone: [phone] 4pm to 6am or weekends please contact the service control operator to page the motion designer fellow [facility] 10-29-2022 Note Hospital Medicine Daily Progress Note - 10/29/2022 3:49 PM; Room: [address] [place] [address] Admission: 10/27/2022 2:17 PM; Length of stay: 0 days THE HOSPITALIST TEAM PREFERS TO USE [employer] CHAT FOR COMMUNICATION 7AM-7PM. IF I DO NOT RESPOND WITHIN 15 MINUTES, PLEASE PAGE ME/CALL THROUGH THE GRAIN I FARMWORKER. FROM 7PM-7AM, PLEASE PAGE [phone](COVR) Code Status: Full Code Discharge Destination: home Discharge plannin/14 Overview Patient is seen for evaluation and management of suspected cholangitis. Nils Rasmussen was seen and examined at bedside. No current nursing concerns or overnight events. Patient denies CP, SOB, N/V/D/C, fever, chills, or abdominal pain. Rash seems to be improving. Less pruritic. Seems to have mild improvement with steroids. Physical Exam Visit Vitals BP 144/77 (Patient Position: Lying) Pulse 78 Temp 36.9 ???C (98.5 ???F) (Oral) Resp 22 Intake/Output Summary (Last 24 hours) at 10/29/2022 1549 Last data filed at 10/29/2022 1118 Gross per 24 hour Intake 500 ml Output 1600 ml Net -1100 ml Physical Exam Vitals and nursing note reviewed. Constitutional: Appearance: Normal appearance. He is normal weight. HENT: Head: Normocephalic. Nose: Nose normal. Mouth/Throat: Mouth: Mucous membranes are moist. Eyes: Pupils: Pupils are equal, round, and reactive to light. Cardiovascular: Rate and Rhythm: Normal rate and regular rhythm. Pulses: Normal pulses. Heart sounds: Normal heart sounds. No murmur heard. No friction rub. No gallop. Pulmonary: Effort: Pulmonary effort is normal. Breath sounds: Normal breath sounds. Abdominal: General: Abdomen is flat. Bowel sounds are normal. Palpations: Abdomen is soft. Musculoskeletal: General: Normal range of motion. Cervical back: Normal range of motion. Skin: General: Skin is warm. Capillary Refill: Capillary refill takes less than 2 seconds. Findings: Rash (macular, diffuse across thighs, lower abdomen) present. Neurological: General: No focal deficit present. Mental Status: He is alert and oriented to person, place, and time. Psychiatric: Mood and Affect: Mood normal. Behavior: Behavior normal. Judgment: Judgment normal. Estimated body mass index is 26.73 kg/m??? as calculated from the following: Height as of this encounter: 1.905 m (6' 3 ). Weight as of this encounter: 97 kg (213 lb 13.5 oz). Active Inpatient Problems Principal Problem: Elevated LFTs Assessment and Plan Generalized macular rash/eruption - drug exanthem? blanchable Neutrophilic leukocytosis - was elevated prior to starting steroids at OSH Transaminitis - mild, low suspicion for cholangitis. Trending up Abdominal Lymphadenopathy Paroxysmal atrial fibrillation CAD Ascending aortic dilatation - From records that I can see, it appears he has had a similar rash intermittently over the past 4 years and is has been thought to be 2/2 drug allergy. One comment seemed to connect it to crestor. In the past he improved on IM steroids. I see lipitor listed in his home med list, though he denies starting any new medications. He states he has tolerated lipitor for years. - Patient has dermatology appointment tomorrow at 9am. - Will give a second dose of solumedrol 40mg IV today and follow up dermatology recommendations tomorrow. -Given the abdominal lymphadenopathy, the leukocytosis which began prior to steroid administration at OSH. He may need a biopsy of the rash lesions. - Follow up GI team recommendation d/t indeterminant Hep A findings and uptrending LFTs. - Continue current medications VTE Prophylaxis: Heparin subcutaneous Scheduled Meds fluticasone, 1 spray, Each Nostril, Daily heparin (porcine), 5,000 Units, subcutaneous, q12h PETE hydrocortisone, , Topical, BID metoprolol succinate XL, 50 mg, oral, Daily Pertinent Investigations Hematology: Results from last 7 days Lab Units 10/29/22 0847 10/29/22 0647 10/27/22 1452 WBC AUTO 10*3/uL -- 15.59* 22.06* HEMOGLOBIN g/dL -- 12.4* 13.8 HEMATOCRIT % -- 35.4* 40.7 MCV fL -- 84.5 85.9 PLATELETS AUTO 10*3/uL -- 266 160 INR 1.34* -- 1.25* Chemistry: Results from last 7 days Lab Units 10/29/22 0647 10/27/22 1452 SODIUM mmol/L 137 139 POTASSIUM mmol/L 3.3* 3.9 CHLORIDE mmol/L 108* 109* CO2 mmol/L 24 21 BUN mg/dL 14 20 CREATININE mg/dL 0.97 0.92 GLUCOSE mg/dL 91 110* CALCIUM mg/dL 8.2* 8.5* Results from last 7 days Lab Units 10/29/22 0647 10/27/22 1452 AST U/L 155* 39 ALT U/L 142* 72* ALK PHOS U/L 227* 210* BILIRUBIN TOTAL mg/dL 1.0 0.9 BILIRUBIN DIRECT mg/dL 0.5* 0.3* Historical Values: (Includes values prior to this admission) Lab Results Component Value Date TSH 0.91 10/27/2022 Lab Results Component Value Date [id number] 1,187 (H) 10/27/2022 IRON 85 10/27/2022 TIBC 215 (L) 10/27/2022 Imaging US abdomen limited liver Narrative: US ABDOMEN LIMITED LIVER CLINICAL INFORMATION: Cirrhos (more content not included)... [facility] 10-29-2022 Note [facility] GI Gastroenterology/Hepatology Progress Note IDENTIFYING DATA PATIENT: Dc Rasmussen ADMIT DATE: 10/27/2022 TIME OF EVALUATION: 10/29/2022 9:53 AM HOSPITAL STAY: LOS: 0 days REASON FOR HOSPITALIZATION: Elevated LFT's, concern for cholangitis SUBJECTIVE/INTERVAL HISTORY Dc Rasmussen's overnight events were reviewed. Pt resting in bed with at bedside. Denies any acute issues overnight. LFT's trending up, HAV IgM indeterminate. OBJECTIVE MEDICATIONS SCHEDULED: @MEDSCURRENTMD@ PRNs: sodium chloride, 10 mL, q8h PRN Physical VITALS: BP 144/84 Pulse 78 Temp 36.9 ???C (98.5 ???F) (Oral) Resp (!) 0 Ht 1.905 m (6' 3 ) Wt 97 kg (213 lb 13.5 oz) SpO2 97% BMI 26.73 kg/m??? GEN: alert and oriented x3 CV: No edema visualized PULM: Respirations even and unlabored ABD: soft, non-tender NEURO: no focal deficits, moves all 4 extremities spontaneously SKIN: no rashes PSYCH: normal affect LABS AND IMAGING CBC: Lab Results Component Value Date WBC 15.59 (H) 10/29/2022 RBC 4.19 (L) 10/29/2022 HGB 12.4 (L) 10/29/2022 HCT 35.4 (L) 10/29/2022 MCV 84.5 10/29/2022 RDW 15.7 (H) 10/29/2022 PLT 266 10/29/2022 CMP: Lab Results Component Value Date NA 137 10/29/2022 K 3.3 (L) 10/29/2022 CL 108 (H) 10/29/2022 CO2 24 10/29/2022 BUN 14 10/29/2022 PROT 6.2 10/29/2022 IMAGING: LIVER ULTRASOUND 10/29/2022: IMPRESSION: *Abnormal echogenicity of the liver consistent with diffuse hepatocellular disease such as fatty infiltration. This limits evaluation for focal hepatic lesions, however, no lesions are identified. *Portal vein is patent. *Consider MRI as indicated. ASSESSMENT AND PLAN Dc Rasmussen is a 87 y.o. male who has PMHx of alcohol dependence, quit 40 years ago, chronically elevated LFTs secondary to fatty liver disease, CAD s/p PCI, a fib not on anticoagulation, who presented to OSH due to fatigue and weakness. Patient reports that he has been experiencing weakness and inability to get around easily. He denies abdominal pain. He reports some nausea, fevers, chills. Decreased appetite over the last several months. Denies weight loss. Patient denies previous hx of liver disease, no family hx of liver disease. At OSH, CT scan was performed that revealed concern for non-specific fat stranding in the kristine hepatis centered around the extrahepatic bile duct concerning for possible cholangitis vs reactive changes. He was also found to have lymphadenopathy throughout. MRCP was performed that was poor quality due to motion artifact, but was negative for biliary ductal dilation. Patient was transferred to [facility] for GI evaluation. 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 with chronically elevated LFTs Initially concern for cholangitis on CT scan at OSH due to mild fat stranding around CBD and elevated LFTs, however currently, bilirubin is normal, LFTs are at baseline, patient is denying abdominal pain and MRCP revealed no evidence of biliary ductal dilation, highly unlikely to represent cholangitis and more likely that this is chronic liver disease Quit alcohol 40 years ago Indeterminate Hepatitis A IgM Leukocytosis and diffuse rash and weakness raise concern for inflammatory condition A fib not on anticoagulation Plan: Advance to regular, low salt as tolerated Repeat HAV IgM ordered, will follow up on results Full chronic liver disease work up ordered, pending Continue to trend LFTs and INR Full infectious work up per primary team Consider dermatology consult if possible Medical management per primary The case will be discussed with the attending physician For Questions please contact us at: [facility] GI Service 6am to 4pm weekdays in house Phone: [phone] 4pm to 6am or weekends please contact the service control operator to page the motion designer fellow [facility] 10-28-2022 Note Hospital Medicine Daily Progress Note - 10/28/2022 5:00 PM; Room: [address] [place] [address] Admission: 10/27/2022 2:17 PM; Length of stay: 1 days THE HOSPITALIST TEAM PREFERS TO USE [employer] CHAT FOR COMMUNICATION 7AM-7PM. IF I DO NOT RESPOND WITHIN 15 MINUTES, PLEASE PAGE ME/CALL THROUGH THE GRAIN I FARMWORKER. FROM 7PM-7AM, PLEASE PAGE [phone](COVR) Code Status: Full Code Discharge Destination: home Discharge planning: In 1-2 days Overview Patient is seen for evaluation and management of suspected cholangitis. Nils Mainalma Rasmussen was seen and examined at bedside. No current nursing concerns or overnight events. Patient denies CP, SOB, N/V/D/C, fever, chills, or abdominal pain. Rash seems to be improving. Less pruritic. Physical Exam Visit Vitals BP 142/83 Pulse 72 Temp 36.4 ???C (97.6 ???F) (Oral) Resp 15 Intake/Output Summary (Last 24 hours) at 10/28/2022 1700 Last data filed at 10/28/2022 1600 Gross per 24 hour Intake 1047.5 ml Output 850 ml Net 197.5 ml Physical Exam Vitals and nursing note reviewed. Constitutional: Appearance: Normal appearance. He is normal weight. HENT: Head: Normocephalic. Nose: Nose normal. Mouth/Throat: Mouth: Mucous membranes are moist. Eyes: Pupils: Pupils are equal, round, and reactive to light. Cardiovascular: Rate and Rhythm: Normal rate and regular rhythm. Pulses: Normal pulses. Heart sounds: Normal heart sounds. No murmur heard. No friction rub. No gallop. Pulmonary: Effort: Pulmonary effort is normal. Breath sounds: Normal breath sounds. Abdominal: General: Abdomen is flat. Bowel sounds are normal. Palpations: Abdomen is soft. Musculoskeletal: General: Normal range of motion. Cervical back: Normal range of motion. Skin: General: Skin is warm. Capillary Refill: Capillary refill takes less than 2 seconds. Findings: Rash (macular, diffuse across thighs, lower abdomen) present. Neurological: General: No focal deficit present. Mental Status: He is alert and oriented to person, place, and time. Psychiatric: Mood and Affect: Mood normal. Behavior: Behavior normal. Judgment: Judgment normal. Estimated body mass index is 25.02 kg/m??? as calculated from the following: Height as of this encounter: 1.905 m (6' 3 ). Weight as of this encounter: 90.8 kg (200 lb 2.8 oz). Active Inpatient Problems Principal Problem: Elevated LFTs Assessment and Plan Generalized macular rash/eruption - drug exanthem? blanchable Neutrophilic leukocytosis - was elevated prior to starting steroids at OSH Transaminitis - mild, low suspicion for cholangitis Abdominal Lymphadenopathy Paroxysmal atrial fibrillation CAD Ascending aortic dilatation - From records that I can see, it appears he has had a similar rash intermittently and is has been thought to be 2/2 drug allergy. One comment seemed to connect it to crestor. In the past he improved on IM steroids. I see lipitor listed in his home med list, though he denies starting any new medications. - Will give dose of solumedrol 40mg IV. -Given the abdominal lymphadenopathy, the leukocytosis which began prior to steroid administration at OSH, will discuss case with our dermatology team. He may need a biopsy. - Follow up GI team recommendation - Continue current medications VTE Prophylaxis: Heparin subcutaneous Scheduled Meds fluticasone, 1 spray, Each Nostril, Daily [Held by provider] heparin (porcine), 5,000 Units, subcutaneous, q12h PETE hydrocortisone, , Topical, BID metoprolol succinate XL, 50 mg, oral, Daily Pertinent Investigations Hematology: Results from last 7 days Lab Units 10/27/22 1452 WBC AUTO 10*3/uL 22.06* HEMOGLOBIN g/dL 13.8 HEMATOCRIT % 40.7 MCV fL 85.9 PLATELETS AUTO 10*3/uL 160 INR 1.25* Chemistry: Results from last 7 days Lab Units 10/27/22 1452 SODIUM mmol/L 139 POTASSIUM mmol/L 3.9 CHLORIDE mmol/L 109* CO2 mmol/L 21 BUN mg/dL 20 CREATININE mg/dL 0.92 GLUCOSE mg/dL 110* CALCIUM mg/dL 8.5* Results from last 7 days Lab Units 10/27/22 1452 AST U/L 39 ALT U/L 72* ALK PHOS U/L 210* BILIRUBIN TOTAL mg/dL 0.9 BILIRUBIN DIRECT mg/dL 0.3* Historical Values: (Includes values prior to this admission) Lab Results Component Value Date TSH 0.91 10/27/2022 Lab Results Component Value Date [id number] 1,187 (H) 10/27/2022 IRON 85 10/27/2022 TIBC 215 (L) 10/27/2022 Imaging US abdomen limited liver Narrative: US ABDOMEN LIMITED LIVER CLINICAL INFORMATION: Cirrhosis. HCC, portal vein thrombosis. COMPARISON: None. FINDINGS: The liver demonstrates abnormal echogenicity with a lobulated contour. The liver measures 15.0 cm. The portal vein is patent. Common bile duct measures 6 mm. Gallbladder is surgically absent. Trace right pleural effusion. Impression: *Abnormal echogenicity of the liver consistent with diffuse hepatocellular disease such as fatty infiltration. This limits evaluation for foca (more content not included)... [facility] 10-28-2022 Note 10/28/22 1504 Referral Data Referral Source aquaculture worker Referral Reason Follow up Patient Information Primary Caregiver Self Activities of Daily Living Assistive Device Cane;Other (Comment);Grab bars (rollator, shower chair) Living Arrangement (Current/Prior to Hospitalization) Private residence Ambulation Independent Dressing Independent Feeding Independent Behavior Oriented Communication Talks;Understands speaking Discharge Planning Support Systems Spouse/significant other;Children Type of Residence/Post Acute Needs Private residence;[facility] Patient's goal for discharge home with [facility] Does the patient need discharge transport arranged? No () Screened by [facility]. Sent referral to [facility] to check if this is agency uses. Await reply. transports upon DC. [facility] will accept pt. [facility] 10-28-2022 Note Spiritual Care Note Patient name: Dc Rasmussen Age: 87 y.o. Room: [address] [place] [address] 10/28/22 1129 Clinical Encounter Type Visited With Patient;Spouse (Visit with pt, and then outside of room as she just arrived.) Type of Visit Consult Last Visit Date 10/28/22 Referral From Nurse Patient Spiritual Care Encounters Spiritual Care Assessment Coping with diagnoses (Pt seemed to be coping with situation. He shared a bit of his personal hx, was receptive of prayer and support. Pt interested in ADV DIR info. NOK Info= HCPOA: No; Guardian: No; Spouse: Glory; Child/henry: one living: Enoch.) Pastoral Intervention Advance directives;Emotional support;Spiritual support;Prayers (Projection Welding Machine Operator reviewed HCPOA and gave pt forms. Spoke outside of room as she just arrived.) Response Appreciative Pastoral Care Notes Advance Directives [facility] 10-28-2022 Note 10/28/22 1235 Admission Assessment Questions Verify insurance with patient Yes Do you understand medical disease or what brought you into the hospital? Yes Who is your current PCP? Nolan Bautista MD Can I schedule a follow up appointment for you at the time of discharge? No Do you understand why you are taking your current medications? Yes Are you taking your medications as prescribed? Yes Did patient provide teach back? Yes Would you like use our pharmacy i[facility] to fill your new medications at the time of Discharge? Yes Does the patient have a correctional counselor/case manager assigned to them through their insurance? Yes Living Arrangement (Current/Prior to Hospitalization) Private residence (lives with ) Does the patient have history of HHC or SNF? Yes (HHC - uses [facility] current) Assistive Device Cane;Grab bars (rollator, shower chair) Patient's goal for discharge home with [facility] (patient would like [facility] if able.) Was patient reminded that goal for discharge is 11am? Yes Does the patient have transportation at discharge? Yes () Type of Residence/Post Acute Needs Private residence;[facility] Is PT/OT appropriate? No Is PT/OT ordered? No Is SW consult appropriate? No Is SW consult ordered? No Do you understand the benefits of MyChart? Yes Were you able to send link and activate MyChart? Yes Patient would like HHC , patient is feeling week and would like motivation for at home, pt.ot is not ordered here, patient uses holland and Rollator now to get around,. Will discuss with Jake BECKER Caring maybe, patient's states [facility] 10-27-2022 Note Hospital Medicine History and Physical 10/27/2022 3:53 PM THE HOSPITALIST TEAM PREFERS TO USE [employer] CHAT FOR COMMUNICATION 7AM-7PM. IF I DO NOT RESPOND WITHIN 15 MINUTES, PLEASE PAGE ME/CALL THROUGH THE GRAIN I FARMWORKER. FROM 7PM-7AM, PLEASE PAGE [phone](COVR) Chief Complaint Multiple History of Present Illness Dc Rasmussen is an 87 y.o. male who came from home as a direct transfer for initial concern of possible cholangitis. Patient was initially admitted at OSH for weakness, nausea, diarrhea, vomiting which had progressed over the past few days. Patient was admitted at OSH and started on IV fluids. He was noted to have elevated LFTs in non obstructive pattern and there was concern of cholangitis. Patient was managed on Zosyn. CT abd pelvis showed CBD dilatation and some lymphadenopathy. He underwent MRCP inconclusively due to motion artifact. Case from OSH was discussed with GI team and hospitalist on transfer line and patient was transferred here. Additionally, patient was noted to have rash which was being treated like urticaria and improved on steroids. Currently, patient denies any fevers, chills, nausea, vomiting, abdominal pain or otherwise. 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 Denies any other acute concerns or complaints. He has history of EtOH use in remote past and says he has not had a drink in many years. He says he has had a rash in past as well but diagnostic work up was inconclusive Review of System and Physical Exam Heart Rate: [83] 83 Resp: [20] 20 BP: (154)/(90) 154/90 Physical Exam Constitutional: Appearance: Normal appearance. HENT: Head: Atraumatic. Mouth/Throat: Pharynx: Oropharynx is clear. Eyes: Extraocular Movements: Extraocular movements intact. Cardiovascular: Rate and Rhythm: Normal rate and regular rhythm. Pulmonary: Breath sounds: Normal breath sounds. Abdominal: Palpations: Abdomen is soft. Musculoskeletal: General: Normal range of motion. Cervical back: Neck supple. Right lower leg: No edema. Left lower leg: No edema. Skin: Coloration: Skin is not jaundiced. Comments: Skin rash trunk, extending to arms and legs, blanchable Neurological: General: No focal deficit present. Mental Status: He is oriented to person, place, and time. Psychiatric: Mood and Affect: Mood normal. Review of Systems Constitutional: Negative for activity change, appetite change, chills, fatigue and fever. Respiratory: Negative for shortness of breath and wheezing. Cardiovascular: Negative for chest pain, palpitations and leg swelling. Hematological: Negative for adenopathy. 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[facility]) 06/16/2022 Difficulty walking 09/28/2019 Poor diet 09/27/2019 Cardiac tamponade 09/23/2019 Late effect of internal injury to chest 09/23/2019 Basal cell carcinoma of face 05/05/2019 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 Status post percutaneous transluminal coronary angioplasty 01/28/2019 Vasomotor rhinitis 12/20/2018 Chronic cough 12/16/2018 Rhinorrhea 11/30/2018 Abnormal findings on diagnostic imaging of liver and biliary tract 11/10/2018 Fatty liver 11/10/2018 Thoracic aortic aneurysm without rupture ([facility]/HCC) 11/07/2018 Paroxysmal atrial fibrillation (CMS/HCC) 10/11/2018 Pure hypercholesterolemia 10/11/2018 Otitis externa 08/03/2018 Arrhythmia 04/21/2018 Exacerbation of asthma 02/01/2018 Lower urinary tract symptoms due to benign prostatic hyperplasia 06/15/2017 Hypertensive heart disease with congestive heart failure (CMS/HCC) 04/14/2017 Cervical spondylosis without myelopathy 03/12/2017 Pharyngeal abscess 08/07/2016 Eosinophilia 08/07/2016 Abnormal tomography of chest 06/18/2016 Localized edema 05/08/2016 Peripheral venous insufficiency 05/08/2016 Mucopurulent chronic bronchitis (CMS/HCC) 04/29/2016 Benign prostatic hyperplasia 03/20/2016 Chronic obstructive pulmonary disease (CMS/HCC) 03/20/2016 Hyperlipidemia 03/20/2016 Hypokalemia 03/20/2016 Ventricular premature beats 03/20/2016 Allergic rhinitis 03/04/2016 Seizure disorder (CMS/HCC) 03/04/2016 Allergy to soap 02/05/2016 Disorder of lung 02/05/2016 Atherosclerosis of coronary artery without angina pectoris 01/08/2015 Enlarged prostate 01/08/2015 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 Somewhat improving on steroids (more content not included)... [facility] 06-18-2022 Note echo [facility] 06-16-2022 Note Pt is here today for a 2yr. Follow up Review of Systems Constitutional: Positive for weight gain. HENT: Positive for ear pain. Musculoskeletal: Positive for arthritis. All other systems reviewed and are negative. [facility] 06-16-2022 Note Cardiology Clinic No te Subjective Dc Con Rasmussen is a 87 y.o. year old male patient with coronary artery disease, status post stenting of the RCA and the LAD, being seen for Follow-up (2 yr. Follow up ) Last saw Dr. Hector in 02/2020. Patient Active Problem List Diagnosis Localized edema Lower urinary tract symptoms due to benign prostatic hyperplasia Pharyngeal abscess Status post percutaneous transluminal coronary angioplasty Abnormal findings on diagnostic imaging of liver and biliary tract Abnormal tomography of chest Actinic keratoses Alcohol dependency (CMS/HCC) Allergic rhinitis Allergy to soap Arthritis Atherosclerosis of coronary artery without angina pectoris Basal cell carcinoma of face Benign prostatic hyperplasia Cervical spondylosis without myelopathy Chronic cholecystitis Chronic cough Chronic obstructive pulmonary disease (CMS/HCC) Cardiac tamponade COVID-19 Difficulty walking Disorder of lung Diverticulosis Enlarged prostate Eosinophilia Exacerbation of asthma Fatty liver Arrhythmia Heart murmur Hemorrhoids Hyperlipidemia Hypertensive heart disease with congestive heart failure (CMS/HCC) Hypokalemia Incomplete bladder emptying Late effect of internal injury to chest Menieres disease Mucopurulent chronic bronchitis (CMS/HCC) Poor diet Peripheral venous insufficiency Paroxysmal atrial fibrillation (CMS/HCC) Otitis externa Myocardial infarction (CMS/HCC) Seizure disorder (CMS/HCC) Rhinorrhea Pure hypercholesterolemia Primary insomnia Shingles Split urinary stream Ventricular premature beats Vasomotor rhinitis Tonic-clonic seizures (CMS/HCC) Thoracic aortic aneurysm without rupture (CMS/HCC) Terminal esophageal web No family history on file. Social History Tobacco Use Smoking status: Former Types: Cigarettes Smokeless tobacco: Never HPI Visit of 01/27/2019: He is an 83-year-old man, who was previously evaluated in Cardiology Clinic by Dr. Nolan Amezquita because of new onset symptoms of shortness of breath on exertion. He has prior history of coronary artery disease, status post stenting of the RCA and the LAD in the past. A stress test showed inferior ischemia. He underwent cardiac catheterization in September 2018 with stenting of the LAD with a drug-eluting stent. He did well after that. He also has recent onset atrial fibrillation and was started on anticoagulation therapy. He has past history of seizures. In December 2018 he underwent laparoscopic cholecystectomy. Following that he sustained abdominal bleeding. He was admitted to [facility]. His aspirin was stopped and then he continued to be on Plavix and Eliquis. Currently he reports that he has no chest pain and nauseous of breath. He has no lower extremity edema. He has no palpitations. He has no appetite. He also had rectal bleeding. He is being planned for a GI Endoscopy procedure. They are requesting to stop Eliquis 3 days before. He is also here to review the possibility of watchman as an alternative to long-term anticoagulation due to bleeding. Update 04/05/2019: He is seen in follow-up. He has been doing well. He underwent upper endoscopy that did not show source of bleeding. He has no chest pain. He has dyspnea on moderate exertion, relieved by rest. No palpitations. No leg swelling. He continues to have rectal bleeding intermittently. He uses a cane to ambulate due to balance issues. Update 08/17/2019: He is seen in follow up via telemedicine. He has been well since last visit. He has not had events since then. No chest pain and no dyspnea. ECG today 08/17/2019: SR with 1st degree AV block, LAD, old inferior infarct. QING 04/21/2019: The left ventricle is normal size. Global left ventricular systolic function is normal. The EF is 65 % visually. The right ventricle is normal in size. Normal right ventricular systolic function. Left Atrium Appendage: No thrombus is identified. No intracardiac shunt by agitated saline injections. The left atrial appendage appears suitable for a watchman device however it could not be imaged above 115 degrees. If clinically necessary could consider Cardiac CT for complete characterization. Visit of 01/11/2020: He is seen in follow-up. He was admitted on 01/09/2020 with chest pain. He reports that he has developed 2 episodes of chest pain, located in the center of the chest. The pain felt like burning sensation. One time it radiated to the shoulders. He took sublingual nitroglycerin with resolution. He presented to the emergency room at the [facility] and was admitted for work-up. 3 sets of troponin were negative. His EKG was normal. He underwent a stress test that showed no evidence of ischemia. This was a nuclear stress test. He was discharged. Today he reports that there was no recurrence of the symptoms since the admission. (more content not included)... [facility] 03-24-2022 Hospital Discharge instructions Patient Education 03/24/2022 07:37:00 Benign Prostatic Hyperplasia Benign Prostatic Hyperplasia Benign prostatic hyperplasia (BPH) is an enlarged prostate gland that is caused by the normal aging process and not by cancer. The prostate is a walnut-sized gland that is involved in the production of semen. It is located in front of the rectum and below the bladder. The bladder stores urine and the urethra is the tube that carries the urine out of the body. The prostate may get bigger as a man gets older. An enlarged prostate can press on the urethra. This can make it harder to pass urine. The build-up of urine in the bladder can cause infection. Back pressure and infection may progress to bladder damage and kidney (renal) failure. What are the causes? This condition is part of a normal aging process. However, not all men develop problems from this condition. If the prostate enlarges away from the urethra, urine flow will not be blocked. If it enlarges toward the urethra and compresses it, there will be problems passing urine. What increases the risk? This condition is more likely to develop in men over the age of 50 years. What are the signs or symptoms? Symptoms of this condition include: Getting up often during the night to urinate. Needing to urinate frequently during the day. Difficulty starting urine flow. Decrease in size and strength of your urine stream. Leaking (dribbling) after urinating. Inability to pass urine. This needs immediate treatment. Inability to completely empty your bladder. Pain when you pass urine. This is more common if there is also an infection. Urinary tract infection (UTI). How is this diagnosed? This condition is diagnosed based on your medical history, a physical exam, and your symptoms. Tests will also be done, such as: A post-void bladder scan. This measures any amount of urine that may remain in your bladder after you finish urinating. A digital rectal exam. In a rectal exam, your health care provider checks your prostate by putting a lubricated, gloved finger into your rectum to feel the back of your prostate gland. This exam detects the size of your gland and any abnormal lumps or growths. An exam of your urine (urinalysis). A prostate specific antigen (PSA) screening. This is a blood test used to screen for prostate cancer. An ultrasound. This test uses sound waves to electronically produce a picture of your prostate gland. Your health care provider may refer you to a specialist in kidney and prostate diseases (urologist). How is this treated? Once symptoms begin, your health care provider will monitor your condition (active surveillance or watchful waiting). Treatment for this condition will depend on the severity of your condition. Treatment may include: Observation and yearly exams. This may be the only treatment needed if your condition and symptoms are mild. Medicines to relieve your symptoms, including: ?Medicines to shrink the prostate. ?Medicines to relax the muscle of the prostate. Surgery in severe cases. Surgery may include: ?Prostatectomy. In this procedure, the prostate tissue is removed completely through an open incision or with a laparoscope or robotics. ?Transurethral resection of the prostate (TURP). In this procedure, a tool is inserted through the opening at the tip of the penis (urethra). It is used to cut away tissue of the inner core of the prostate. The pieces are removed through the same opening of the penis. This removes the blockage. ?Transurethral incision (TUIP). In this procedure, small cuts are made in the prostate. This lessens the prostate's pressure on the urethra. ?Transurethral microwave thermotherapy (TUMT). This procedure uses microwaves to create heat. The heat destroys and removes a small amount of prostate tissue. ?Transurethral needle ablation (TUNA). This procedure uses radio frequencies to destroy and remove a small amount of prostate tissue. ?Interstitial laser coagulation (ILC). This procedure uses a laser to destroy and remove a small amount of prostate tissue. ?Transurethral electrovaporization (TUVP). This procedure uses electrodes to destroy and remove a small amount of prostate tissue. ?Prostatic urethral lift. This procedure inserts an implant to push the lobes of the prostate away from the urethra. Follow these instructions at home: Take [id number] and prescription medicines only as told by your health care provider. Monitor your symptoms for any changes. Contact your health care provider with any changes. Avoid drinking large amounts of liquid before going to bed or out in public. Avoid or reduce how much caffeine or alcohol you drink. Give yourself time when you urinate. Keep all follow-up visits as told by your health care provider. This is important. Contact a health care provider if: You have unexplained back pain. Your symptoms do not get better with treatment. You develop side effects from the medicine you are taking. Your urine becomes very dark or has a bad smell. Your lower abdomen becomes distended and you have trouble passing your urine. Get help right away if: You have a fever or chills. You suddenly cannot urinate. You feel lightheaded, or very dizzy, or you faint. There are large amounts of blood or clots in the urine. Your urinary problems become hard to manage. You develop moderate to severe low back or flank pain. The flank is the side of your body between the ribs and the hip. These symptoms may represent a serious problem that is an emergency. Do not wait to see if the symptoms will go away. Get medical help right away. Call your local emergency services (911 in the [place] Do not drive yourself to the hospital. Summary Benign prostatic hyperplasia (BPH) is an enlarged prostate that is caused by the normal aging process and not by cancer. An enlarged prostate can press on the urethra. This can make it hard to pass urine. This condition is part of a normal aging process and is more likely to develop in men over the age of 50 years. Get help right away if you suddenly cannot urinate. This information is not intended to replace advice given to you by your health care provider. Make sure you discuss any questions you have with your health care provider. Document Released: 02/02/2006 Document Revised: 12/28/2018 Document Reviewed: 03/09/2017 [employer] Patient Education 2020 [employer] Follow Up Care 03/14/2022 11:33:52 With:YECENIA KIM, Papa Velarde, URL Address: [facility] [address] [address]- When: Unknown [facility] [employer] Evaluation + Plan note No data available for this section [facility] [employer] Evaluation + Plan note Future Appointments Appointment Date:05/22/2022 02:30:00 PM Scheduled Provider:ALE FAN PA-C Location:[facility] Appointment Type:URO Office Visit [facility] [employer] Hospital Discharge instructions No data available for this section [facility] [employer] Progress note No data available for this section [facility] [employer] Summary Purpose Family History No Family History Records FoundNo Family History Records FoundNo Family History Records FoundNo Family History Records FoundNo Family History Records FoundNo Family History Records Found No data available for this section No Family History Records Found Advance Directives No Advanced Directives Records FoundNo Advanced Directives Records FoundNo Advanced Directives Records FoundNo Advanced Directives Records FoundNo Advanced Directives Records FoundNo Advanced Directives Records FoundNo Advanced Directives Records Found Additional Source Comments (unrecognized sect ion and content) No Status Records FoundNo Status Records FoundNo Status Records FoundNo Status Records FoundNo Status Records FoundNo Status Records FoundNo Status Records Found INFORMATION SOURCE (unrecogn ized section and content) DATE CREATED AUTHOR 08/12/2017 [facility] DATE CREATED AUTHOR AUTHOR'S ORGANIZ ATION 09/14/2020 [facility] DATE CREATED AUTHOR AUTHOR'S ORGANIZ ATION 04/16/2021 [facility]ical Specialist DATE CREATED AUTHOR AUTHOR'S ORGANIZ ATION 06/29/2022 [facility] DATE CREATED AUTHOR AUTHOR'S ORGANIZ ATION 11/02/2022 Morgan Otto [facility] DATE CREATED AUTHOR AUTHOR'S ORGANIZ ATION 01/08/2023 [facility] DATE CREATED AUTHOR AUTHOR'S ORGANIZ ATION 06/02/2023 [facility] dical Specialists EPIC Patient Care team informatio n (unrecognized section and content) Personnel Name: NOLAN BAUTISTA MD Address: Address: [address] [place] [address] Personnel Name: NOLAN BAUTISTA MD Address: Address: [address] [place] [address] Personnel Name: NOLAN BAUTISTA MD Address: Address: [address] [place] [address] FOR RECORDS PERTAINING TO PATIENTS WHO ARE OR HAVE BEEN ENROLLED IN A CHEMICAL DEPENDENCY/SUBSTANCEABUSE PROGRAM, SOME INFORMATION MAY BE OMITTED. This clinical summary was aggregated from multiple sources. Caution should be exercised in using it in the provision of clinical care. This summary normalizes information from multiple sources, and as a consequence, information in this document may materially change the coding, format and clinical context of patient data. In addition, data may be omitted in some cases. CLINICAL DECISIONS SHOULD BE BASED ON THE PRIMARY CLINICAL RECORDS. [facility] [employer] provides no warranty or guarantee of the accuracy or completeness of information in this document.
[2023-07-15 11:46] LABS: Alanine Aminotransferase 61 U/L (16-63); Albumin Globulin Ratio 0.7; Albumin Level 3.5 g/dL (3.4-5.0); Alkaline Phosphatase 243 U/L (46-116); Anion Gap 9.9; Aspartate Amino Transferase 45 U/L (15-37); BUN Creatinine Ratio 13.4; Bilirubin Total 0.5 mg/dL (0.2-1.0); Calcium 9.1 mg/dL (8.5-10.1); Carbon Dioxide 29.2 mmol/L (21.0-32.0); Chloride 104 mmol/L (98-107); Chol HDL Ratio 3.1; Cholesterol 129 mg/dL (<=200); Estimated GFR (African America 54 (>=60); Estimated GFR (Non-African Ame 45 (>=60); Globulin 5.1 g/dL; Glucose 116 mg/dL (74-106); HDL Cholesterol 42 mg/dL (40-60); Potassium 4.1 mmol/L (3.5-5.1); Sodium 139 mmol/L (136-145); Total Protein 8.6 g/dL (6.4-8.2); Triglycerides 75 mg/dL (<=150)
== END 2023-07-15 10:54 | disposition home or self-care (01) ==
LOC: LAB 10:55
PROVIDERS: PCP Internal Medicine; Visit Provider Internal Medicine Interventional Cardiology
DX: I25.10 Atherosclerotic heart disease of native coronary artery without angina pectoris (principal); I50.32 Chronic diastolic (congestive) heart failure
CPT/HCPCS: 36415; 80053; 80061; 85025

== ENCOUNTER 2023-08-03 14:50 | Outpatient (OUT) | payer MEDICARE, OTHER, SELFPAY ==
--- NOTE | 2023-08-03 15:00 | CA_ITS ---
Patient Name: DC LUO MR#: [id number] : 1935 Exam Date: 08/03/2023 Ordering Doctor: DR SANJAY HECTOR M.D. ECHOCARDIOGRAM REPORT PROCEDURE: CA ECHO DOPPLER COMPLETE INDICATIONS: Aortic aneurysm COMPARISON: None. DESCRIPTION: COMPLETE ECHOCARDIOGRAM Real-time transthoracic echocardiography with 2D, M-mode, spectral and color flow Doppler performed. QUALITY: Technical quality was good. LEFT VENTRICLE: Normal chamber size. Mild concentric hypertrophy. Global left ventricular systolic function is normal. LV EF: Estimated left ventricular ejection fraction is 60-65% DIASTOLIC: Normal diastolic function. ATRIAL SEPTUM: LEFT ATRIUM: Normal chamber size. RIGHT ATRIUM: Normal chamber size. RIGHT VENTRICLE: Normal chamber size. Normal right ventricular systolic function. TRICUSPID VALVE: Normal mobility and thickness. No stenosis with trivial regurgitation. No evidence of pulmonary hypertension. RVSP 31 mmHg MITRAL VALVE: Normal mobility and thickness. No evidence of mitral valve stenosis. There is no mitral annular calcification. Mild mitral regurgitation. AORTIC VALVE: Normal trileaflet appearance. Thickened aortic valve. Normal leaflet mobility. No evidence of aortic valve stenosis. No aortic regurgitation. AORTIC ROOT: Mildly dilated aortic root measuring 3.8 cm. 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 The aortic arch measures 2.7 cm. PULMONIC VALVE: Normal thickness and mobility. No stenosis. No regurgitation. PERICARDIUM: No evidence of pericardial effusion. IVC: Collapses with inspirations. Normal size. PLEURA: CONCLUSION: 1. Mild concentric left ventricular hypertrophy with normal systolic function. LVEF is estimated at 60 to 65%. 2. Normal right ventricular size and systolic function. 3. No significant valvular dysfunction. 4. Normal diastolic function. 5. Normal right-sided pressures. 6. 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 Adult Echocardiography Procedure Report Left Ventricle LVEDD (3.7 - 5.6 cm): 4.69 cm LVESD (2.2 - 4.0 cm): 3.34 cm LVIVS thickness (0.6 - 1.2 cm): 1.06 cm LVPW thickness (0.5 - 1.0 cm): 1.37 cm e': 0.09 m/s E - e': 12.70 LVOT Max Gradient: 1.61 mm[Hg] LVOT Area (cm2): 0.63 m/s Peak Velocity (LVOT): 0.63 m/s Mean Velocity (LVOT): 0.44 m/s LVOT Diameter 2.21 cm Left Ventricular Ejection Fraction: 60-65 % Left Atrium LA Volume Index (2D A2C): 30.17 ml/m2 Left Atrium Systolic Dimension: 3.99 cm Mitral Valve MV E to A Ratio: 1.99 Mitral Valve A-Wave Peak Velocity: 0.55 m/s Mitral Valve E-Wave Peak Velocity: 1.09 m/s Right Ventricle RV Internal Diastolic Dimension: 3.92 cm Aorta AO Root Diam: 3.81 cm Ascending Ao Diam: 4.02 cm Aortic Valve AoV Area (Peak Saad): 2.66 cm2, 2.66 cm2 AoV Area (VTI): 3.47 cm2, 3.47 cm2 Peak Velocity(Antegrade Flow): 0.91 m/s Peak Gradient(Antegrade Flow): 3.34 mm[Hg] Mean Velocity(Antegrade Flow): 0.59 m/s Mean Gradient(Antegrade Flow): 1.60 mm[Hg] Velocity Time Integral: 17.16 cm Tricuspid Valve Peak Velocity (Regurgitant Flow): 2.10 m/s, 2.23 m/s, 2.63 m/s Pulmonic Valve Mean Gradient: 1.45 mm[Hg], 1.77 mm[Hg] Mean Velocity: 0.55 m/s, 0.62 m/s Peak Velocity: 0.86 m/s Peak Gradient: 2.84 mm[Hg], 3.06 mm[Hg] Right Atrium Right Atrium Systolic Pressure: 71.50 ml, 71.50 ml Dictated by: Sanjay Hetcor M.D. on 08/03/2023 at 18:30 Approved by: Sanjay Hector M.D. on 08/03/2023 at 18:33
== END 2023-08-03 14:51 | disposition home or self-care (01) ==
LOC: CARD 14:50
PROVIDERS: PCP Internal Medicine; Visit Provider Internal Medicine Interventional Cardiology
DX: I71.21 Aneurysm of the ascending aorta, without rupture (principal)
CPT/HCPCS: 93306

== ENCOUNTER 2023-11-13 14:44 | Observation (INO) | payer MEDICARE, OTHER, SELFPAY ==
[2023-11-13] VITALS (26 sets, daily range): BP systolic 108–152; BP diastolic 66–86; PULSE 57–79; TEMP 36.5–36.8; O2SAT 92–98; BMI 25.0; BMI 24.3
--- OUTSIDE RECORDS SUMMARY | 2023-11-13 14:56 | XMS_ITS | CCD ---
Author Organization [facility] Inform ion Partnership [facility] Care Team Providers Care Sales Warehouse Driver Name Role Phone JOSE TRINH Unavailable Unavailable NOLAN BAUTISTA II Unavailable Unavailable NOLAN BAUTISTA Primary Care Physician MICHELE, DR BANKS Admitting Unavailable BAUTISTA, DR BANKS Attending Unavailable BAUTISTA, DR BANKS Primary Care Unavailable BAUTISTA, DR BANKS Consulting Unavailable MISC, DR AGURIRE Admitting Unavailable MISC, DR AGUIRRE Attending Unavailable MICHELE, DR BANKS Primary Care Unavailable MISC, DR AGUIRRE Consulting Unavailable ALE FAN Attending Unavailable AftabAkbar Attending Unavailable MEGHANALE PETERSON Attending Unavailable Papa REYNA Attending Unavailable ENIXDEIDRE Referring Unavailable MOUKARBELSANJAY Attending Unavailable RONNFABIANO SALGADO Referring Unavailable SHANE, JENN Referring Unavailable HOYBUD Referring Unavailable EFRA, JORDYN Attending Unavailable EFRAJORDYN Almanzar Admitting Unavailable SHARI SULLIVAN Attending Unavailable SHARI SULLIVAN Attending Unavailable NOLAN BAUTISTA Attending Unavailable VENECIA BROWNLEE Attending Unavailable NOLAN BAUTISTA Attending Unavailable RODRIGUEZ QUINONES Attending Unavailable Allergies Allergy Classification Reported Allergen(s) Allergy Type Date of Onset Reaction(s) Facility (5 sources) traMADol; Translations: [tramadol] Drug Allergy 7 Paranoid disorder (disorder) [facility] (1 source) Acetaminophen / oxyCODONE Drug Allergy 3 [facility] (2 sources) Albuterol; Translations: [ALBUTEROL] Drug Allergy 3 [facility] (1 source) formoterol Drug Allergy [facility] (1 source) levoFLOXacin Drug Allergy 6 [facility] (2 sources) Lidocaine; Translations: [LIDOCAINE] Drug Allergy 3 [facility] (1 source) oxyCODONE Drug Allergy [facility] (1 source) traMADol Drug Allergy 3 [facility] (2 sources) Ether; Translations: [ETHER] Drug allergy (disorder) 0 [facility] (1 source) Acetaminophen / oxyCODONE; Translations: [OXYCODONE-ACETAM INOPHEN] Drug Allergy 7 [facility] (1 source) Codeine / guaiFENesin; Translations: [CODEINE-GUAIFENE SIN] Drug Allergy 1 [facility] (1 source) levoFLOXacin; Translations: [LEVOFLOXACIN] Drug Allergy 1 [facility] (1 source) oxyCODONE; Translations: [OXYCODONE HCL] Drug Allergy 1 [facility] Medications Current Medications Medication Drug Class(es) [...] afterwards, # 2 tab(s), Refills(s) 0, Pharmacy: [id number], 188, cm, 03/05/22 14:43:00 EST, Height/Length Dosing, 94, [...] (3 sources) Anticholinergic Start: 03-05-2022 Atrovent 0.03% Nazlini 2 spray(s), Nasal, TID, 30 mL Start [...] Vasodilator Start: 03-05-2022 nitroglycerin 0.4 mg SubL [place] mg spray(s), SubLingual, q5min Start Date: 03/05/22 Status: Ordered pantoprazole 40 mg delayed release oral tablet (3 sources) Proton Pump Inhibitor Start: 03-05-2022 take 1 mg by mouth once daily Protonix 40 mg Tab-DR mg tab(s), Oral, Daily Start Date: 03/05/22 Status: Ordered Potassium Chloride (3 sources) Start: 03-05-2022 Potassium Chloride (Eri-Wovu-Qjb 10) mEq, Oral, BID Start Date: 03/05/22 [...] Atrial fibrillation; Translations: [Paroxysmal atrial fibrillation] Onset: 06-16-2022 03-05-2022 Chronic Chronic obstructive pulmonary disease and bronchiectasis (3 sources) Chronic obstructive lung disease 02-24-2022 Chronic Congestive heart failure; nonhypertensive (5 sources) Congestive heart failure; Translations: [Chronic diastolic (congestive) heart failure] Onset: 07-15-2023 02-24-2022 Chronic Coronary atherosclerosis and other heart disease (8 sources) Angina pectoris; 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] Onset: 07-15-2023 02-24-2022 Chronic Disorders of lipid metabolism (5 sources) Hyperlipidemia; Translations: [Mixed hyperlipidemia] Onset: 06-16-2022 02-24-2022 Chronic Diverticulosis and diverticulitis (3 sources) Diverticular disease 02-24-2022 Chronic Epilepsy; convulsions (3 sources) 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 Esophageal disorders (6 sources) Gastroesophageal reflux disease 02-24-2022 Chronic Esophageal disorders (3 sources) Esophagitis 02-24-2022 Episodic Genitourinary symptoms and ill-defined conditions (8 sources) Splitting of urinary stream; Translations: [Splitting of urinary stream] Onset: 03-05-2022 Episodic Heart valve disorders (1 source) Rheumatic disorders of both mitral and tricuspid valves; Translations: [RHEUMATIC D/O MITRAL TRICUSPID VALV] Onset: 06-28-2022 Chronic Heart valve disorders (3 sources) Heart murmur 03-05-2022 Episodic Hemorrhoids (3 sources) Hemorrhoids 02-24-2022 Episodic Hyperplasia of prostate (5 sources) Benign prostatic hypertrophy without outflow obstruction; Translations: [Benign prostatic hyperplasia without lower urinary tract symptoms] Onset: 03-05-2022 Chronic Osteoarthritis (3 sources) Arthritis 02-24-2022 Chronic Other and ill-defined heart disease (3 sources) Heart disease 03-05-2022 Chronic Other lower respiratory disease (3 sources) Chronic cough 02-24-2022 Episodic Other skin disorders (3 sources) Multiple actinic keratoses 02-24-2022 Episodic Other upper respiratory disease (3 sources) Nasal discharge 02-24-2022 Episodic Residual codes; unclassified (3 sources) Insomnia 02-24-2022 Episodic Residual codes; unclassified (2 sources) Other specified postprocedural states; Translations: [Other specified postprocedural states] Onset: 07-15-2023 Episodic Unclassified (3 sources) COUGH, UNSPECIFIED; Translations: [COUGH, UNSPECIFIED] Onset: 11-13-2021 Unclassified (1 source) Aneurysm of the ascending aorta, without rupture; Translations: [Aneurysm of the ascending aorta, without rupture] Onset: 06-16-2022 Unclassified (1 source) Thoracic aortic aneurysm, without rupture, unspecified; Translations: [Thoracic aortic aneurysm, without rupture, unspecified] Onset: 06-16-2022 Viral infection (3 sources) Herpes zoster 02-24-2022 Episodic Viral infection (4 sources) Disease caused by 2019-nCoV; Translations: [COVID-19] Onset: 11-13-2021 02-24-2022 Past or Other Problems Problem Classification Problem Date Documented Date Episodic/Chronic Other screening for suspected conditions (not mental disorders or infectious disease) (6 sources) Abnormal electrocardiogram [ECG] [EKG]; Translations: [Other specified abnormal findings of blood chemistry] Onset: 06-25-2022 Episodic Other upper respiratory infections (1 source) Acute pharyngitis, unspecified; Translations: [ACUTE PHARYNGITIS UNSPECIFIED] Onset: 11-13-2021 Episodic Unclassified (1 source) COUGH, UNSPECIFIED; Translations: [COUGH, UNSPECIFIED] Onset: 11-11-2021 Unclassified (1 source) Aneurysm of the ascending aorta, without rupture; Translations: [Aneurysm of the ascending aorta, without rupture] Onset: 07-15-2023 Unclassified (1 source) Thoracic aortic aneurysm, without rupture, unspecified; Translations: [Thoracic aortic aneurysm, without rupture, unspecified] Onset: 01-06-2023 Results Test Name Value Interpretation Reference Range Facility Office Visiton 07-15-2023 Follow-up visit [id number] Doreen Rasmussenyolanda od L 1935 M Date Provider Department Center 07/15/2023 Xi-SANJAY HECTOR [facility] No family history on file Level of Service:04038 [place] OFFICE/OUTPATIENT ESTABLISHED MOD MDM 30 MIN Normal [facility] Office Visiton 01-06-2023 Follow-up visit [id number] Doreen Rasmussenyolanda od L 1935 M Date Provider Department Center 01/06/2023 [id number] SULLIVAN [facility] No family history on file Level of Service:99340 [place] OFFICE/OUTPATIENT ESTABLISHED MOD MDM 30-39 MIN Normal [facility] Office Visiton 11-21-2022 Follow-up visit [id number] Etelvina Rasmussenradha od L 1935 M Date Provider Department Center 11/21/2022 [id number] TYSON ZHEN [facility] No family history on file Level of Service:82850 [place] OFFICE/OUTPATIENT ESTABLISHED MOD MDM 30-39 MIN [facility] 30on 10-31-2022 30 Spoke with patient, patient is making PCP appointment and Patient would like to follow up with a hris manager that is closer to home, patient stated he is going to get his PCP to set him up with GI MD to follow up with, patient verbalizes understanding of these appointments and need to establish soon. Patient is going home with [facility]. AVS and DC order faxed through care port to [facility] 30 Daily Case Managemen t Update Multidisciplinary rounds have been completed. Barriers to Discharge: pending MRCP results and GI recs, home with [facility] on DC Diet: Dietary Orders (From admission, [...] Therapy Types of Home Health Service needed [facility] Please indicate your approval for this care by adding your name here: COOPERVICTORINO ESTEBAN 10/28/22 1451 [facility] 30 The patient is Moderately Stable - [...] facility with appropriate resources Outcome: Progressing Normal [facility] BASIC METABOLIC PANELon 09- Anion gap [Moles/Vol] 10 mmol/L Normal 7-20 [facility] Comment on above: Performed By: #### L AB15 #### [facility] ([facility] [address] [place] [address] Calcium [Mass/Vol] 8.3 mg/dL Low 8.6-10.3 [facility] Comment on above: Performed By: #### L [id number] #### [facility] [address] [place] [address] Chloride [Moles/Vol] 106 mmol/L Normal 98-107 [facility] Comment on above: Performed By: #### L AB15 #### [facility] ([facility] [address] [place] [address] CO2 [Moles/Vol] 25 mmol/L Normal 21-31 [facility] Comment on above: Performed By: #### L [id number] #### [facility] [address] [place] [address] Creatinine [Mass/Vol] 0.95 mg/dL Normal 0.70-1.30 [facility] Comment on above: Performed By: #### L [id number] #### [facility] ([facility]) [address] [place] [address] GLOMERULAR FILTRATION RATE ML/MIN/1.73 SQ M.PREDICTED 78.4 mL/min/1.73m*2 Normal >60.0 [facility] Comment on above: Result Comment: [facility]???s estimated glomerular filtration rate (eGFR) will no [...] of individuals. Performed By: #### L AB15 #### [facility] ([facility]) [address] [place] [address] Glucose [Mass/Vol] 84 mg/dL Normal 70-100 [facility] Comment on above: Performed By: #### L [id number] #### [facility] ([facility]) [address] [place] [address] Potassium [Moles/Vol] 3.7 mmol/L Normal 3.5-5.1 [facility] Comment on above: Performed By: #### L [id number] #### [facility] ([facility]) [address] [place] [address] Sodium [Moles/Vol] 137 mmol/L Normal 136-145 [facility] Comment on above: Performed By: #### L [id number] #### [facility] ([facility]) [address] [place] [address] Urea nitrogen [Mass/Vol] 16 mg/dL Normal 7-25 [facility] Comment on above: Performed By: #### L [id number] #### [facility] ([facility]) [address] [place] [address] UREA NITROGEN/CREATININE (MASS RATIO) IN SER/PLAS 16.8 Normal [facility] Comment on above: Performed By: #### L [id number] #### [facility] ([facility]) [address] [place] [address] CBC WITH AUTO DIFFERENTIALon 10-31-2022 Basophils (Bld) [#/Vol] 0.08 10*3/uL Normal 0.00-0.20 [facility] Comment on above: Performed By: #### L [id number] #### [facility] ([facility]) [address] [place] [address] Basophils/100 WBC (Bld) 0.6 % Normal 0.0-1.0 [facility] Comment on above: Performed By: #### L [id number] #### [facility] ([facility]) [address] [place] [address] Eosinophils (Bld) [#/Vol] 0.78 10*3/uL High 0.00-0.50 [facility] Comment on above: Performed By: #### L [id number] #### [facility] ([facility]) [address] [place] [address] Eosinophils/100 WBC (Bld) 6.1 % High 0.0-6.0 [facility] Comment on above: Performed By: #### L [id number] #### [facility] ([facility]) [address] [place] [address] Erythrocyte distribution width (RBC) [Ratio] 15.9 % High 11.5-15.0 [facility] Comment on above: Performed By: #### L [id number] #### [facility] ([facility]) [address] [place] [address] ERYTHROCYTE MEAN CORPUSCULAR HEMOGLOBIN CONCENTRATION (G/DL) BY AUTOMATED 34.0 g/dL Normal 32.0-35.0 [facility] Comment on above: Performed By: #### L [id number] #### [facility] ([facility]) [address] [place] [address] Hematocrit (Bld) [Volume fraction] 36.5 % Low 39.0-55.0 [facility] Comment on above: Performed By: #### L [id number] #### [facility] ([facility]) [address] [place] [address] Hemoglobin (Bld) [Mass/Vol] 12.4 g/dL Low 13.0-17.0 [facility] Comment on above: Performed By: #### L [id number] #### [facility] ([facility]) [address] [place] [address] Immature granulocytes (Bld) [#/Vol] 0.29 10*3/uL High 0.00-0.20 [facility] Comment on above: Performed By: #### L [id number] #### [facility] ([facility]) [address] [place] [address] Immature granulocytes/100 WBC (Bld) 2.3 % High 0.0-1.0 [facility] Comment on above: Performed By: #### L [id number] #### [facility] ([facility]) [address] [place] [address] Lymphocytes (Bld) [#/Vol] 2.09 10*3/uL Normal 1.20-4.00 [facility] Comment on above: Performed By: #### L [id number] #### [facility] ([facility]) [address] [place] [address] Lymphocytes/100 WBC (Bld) 16.3 % Low 20.0-45.0 [facility] Comment on above: Performed By: #### L [id number] #### [facility] ([facility]) [address] [place] [address] MCH (RBC) [Entitic mass] 29.0 pg Normal 27.0-33.0 [facility] Comment on above: Performed By: #### L [id number] #### [facility] ([facility]) [address] [place] [address] MCV (RBC) [Entitic vol] 85.5 fL Normal 82.0-98.0 [facility] Comment on above: Performed By: #### L [id number] #### [facility] ([facility]) [address] [place] [address] Monocytes (Bld) [#/Vol] 0.83 10*3/uL Normal 0.10-1.00 [facility] Comment on above: Performed By: #### L [id number] #### [facility] ([facility]) [address] [place] [address] Monocytes/100 WBC (Bld) 6.5 % Normal 5.0-12.0 [facility] Comment on above: Performed By: #### L [id number] #### [facility] ([facility]) [address] [place] [address] Neutrophils (Bld) [#/Vol] 8.73 10*3/uL High 1.60-7.60 [facility] Comment on above: Performed By: #### L [id number] #### [facility] ([facility]) [address] [place] [address] Neutrophils/100 WBC (Bld) 68.2 % Normal 40.0-72.0 [facility] Comment on above: Performed By: #### L [id number] #### [facility] ([facility]) [address] [place] [address] NRBC (PER 100 WBCS) BY AUTOMATED COUNT 0.0 % Normal 0 [facility] Comment on above: Performed By: #### L [id number] #### [facility] ([facility]) [address] [place] [address] PLATELETS (10*3/UL) IN BLOOD AUTOMATED COUNT 328 10*3/uL Normal 150-400 [facility] Comment on above: Performed By: #### L [id number] #### [facility] ([facility]) [address] [place] [address] RBC (Bld) [#/Vol] 4.27 10*6/uL Normal 4.20-5.70 [facility] Comment on above: Performed By: #### L [id number] #### [facility] ([facility]) [address] [place] [address] WBC (Bld) [#/Vol] 12.80 10*3/uL High 4.00-10.60 [facility] Comment on above: Performed By: #### L [id number] #### [facility] ([facility]) [address] [place] [address] HEPATIC FUNCTION PANELon Albumin [Mass/Vol] 2.7 g/dL Low 3.5-5.7 [facility] Comment on above: Performed By: #### L [id number] #### [facility] ([facility]) [address] [place] [address] ALP [Catalytic activity/Vol] 231 U/L High 34-104 [facility] Comment on above: Performed By: #### L [id number] #### [facility] ([facility]) [address] [place] [address] ALT [Catalytic activity/Vol] 90 U/L High 7-52 [facility] Comment on above: Performed By: #### L [id number] #### [facility] ([facility]) [address] [place] [address] AST [Catalytic activity/Vol] 42 U/L High 13-39 [facility] Comment on above: Performed By: #### L [id number] #### [facility] ([facility]) [address] [place] [address] Bilirubin [Mass/Vol] 0.7 mg/dL Normal 0.3-1.0 [facility] Comment on above: Performed By: #### L [id number] #### [facility] ([facility]) [address] [place] [address] Magnesium [Mass/Vol] 0.2 mg/dL Normal 0-0.2 [facility] Comment on above: Performed By: #### L [id number] #### [facility] ([facility]) [address] [place] [address] Protein [Mass/Vol] 6.8 g/dL Normal 6.0-8.3 [facility] Comment on above: Performed By: #### L [id number] #### [facility] ([facility]) [address] [place] [address] LACTATE DEHYDROGENASEon 10-17 LACTATE DEHYDROGENASE (U/L) IN SER/PLAS BY LAC->PYR RXN 180 U/L Normal 140-271 [facility] Comment on above: Performed By: #### L [id number] #### [facility] ([facility]) [address] [place] [address] ANTI-SMOOTH MUSCLE ANTIBODY TITERon 10-30-2022 SMOOTH MUSCLE AB, IGG TITER 1:160 High <1:20 [facility] Comment on above: Result Comment: INTE RPRETIVE INFORMATION: Smooth Muscle Ab, IgG Titer Less than 1:20 ........ Negative - No antibody detected. 1:20 - 1:80 .......... Weak Positive - Suggest repeat in two to three weeks with fresh specimen. 1:160 or greater ...... Positive - Suggestive of autoimmune hepatitis or chronic active hepatitis. Performed By: [facility] [address] [id number] [employer]: Sylvester Levine MD, PhD CLIA Number: [id number] Performed By: #### L [id number] #### [facility] ([facility]) [address] [place] [address] ANTI-SMOOTH MUSCLE ANTIBODY, IGG WITH REFLEX TO TITERon 10-30-2022 SMOOTH MUSCLE ANTIBODY 90 Units High 0-19 [facility] Comment on above: Result Comment: REFE RENCE [...] suspicion for AIH is strong. Performed By: [facility] [address] [place] [address] [employer]: Sylvester Levine MD, PhD CLIA Number: [id number] Performed By: #### L [id number] #### [facility] ([facility]) [address] [place] [address] BASIC METABOLIC PANELon 09- Anion gap [Moles/Vol] 9 mmol/L Normal 7-20 [facility] Comment on above: Performed By: #### L [id number] #### [facility] ([facility]) [address] [place] [address] Calcium [Mass/Vol] 8.3 mg/dL Low 8.6-10.3 [facility] Comment on above: Performed By: #### L [id number] #### [facility] ([facility]) [address] [place] [address] Chloride [Moles/Vol] 107 mmol/L Normal 98-107 [facility] Comment on above: Performed By: #### L [id number] #### [facility] ([facility]) [address] [place] [address] CO2 [Moles/Vol] 23 mmol/L Normal 21-31 [facility] Comment on above: Performed By: #### L [id number] #### [facility] ([facility]) [address] [place] [address] Creatinine [Mass/Vol] 0.79 mg/dL Normal 0.70-1.30 [facility] Comment on above: Performed By: #### L [id number] #### [facility] ([facility]) [address] [place] [address] GLOMERULAR FILTRATION RATE ML/MIN/1.73 SQ M.PREDICTED 87.1 mL/min/1.73m*2 Normal >60.0 [facility] Comment on above: Result Comment: [facility]???s estimated glomerular filtration rate (eGFR) will no [...] group of individuals. Performed By: #### L [id number] #### [facility] ([facility]) [address] [place] [address] Glucose [Mass/Vol] 112 mg/dL High 70-100 [facility] Comment on above: Performed By: #### L [id number] #### [facility] ([facility]) [address] [place] [address] Potassium [Moles/Vol] 4.3 mmol/L Normal 3.5-5.1 [facility] Comment on above: Performed By: #### L [id number] #### [facility] ([facility]) [address] [place] [address] Sodium [Moles/Vol] 135 mmol/L Low 136-145 [facility] Comment on above: Performed By: #### L [id number] #### [facility] ([facility]) [address] [place] [address] Urea nitrogen [Mass/Vol] 14 mg/dL Normal 7-25 [facility] Comment on above: Performed By: #### L [id number] #### [facility] ([facility]) [address] [place] [address] UREA NITROGEN/CREATININE (MASS RATIO) IN SER/PLAS 17.7 Normal [facility] Comment on above: Performed By: #### L [id number] #### [facility] ([facility]) [address] [place] [address] CBCon 10-30-2022 Erythrocyte distribution width (RBC) [Ratio] 15.6 % High 11.5-15.0 [facility] Comment on above: Performed By: #### L [id number] #### [facility] ([facility]) [address] [place] [address] ERYTHROCYTE MEAN CORPUSCULAR HEMOGLOBIN CONCENTRATION (G/DL) BY AUTOMATED 33.7 g/dL Normal 32.0-35.0 [facility] Comment on above: Performed By: #### L [id number] #### [facility] ([facility]) [address] [place] [address] Hematocrit (Bld) [Volume fraction] 35.9 % Low 39.0-55.0 [facility] Comment on above: Performed By: #### L [id number] #### [facility] ([facility]) [address] [place] [address] Hemoglobin (Bld) [Mass/Vol] 12.1 g/dL Low 13.0-17.0 [facility] Comment on above: Performed By: #### L [id number] #### [facility] ([facility]) [address] [place] [address] MCH (RBC) [Entitic mass] 29.0 pg Normal 27.0-33.0 [facility] Comment on above: Performed By: #### L [id number] #### [facility] ([facility]) [address] [place] [address] MCV (RBC) [Entitic vol] 86.1 fL Normal 82.0-98.0 [facility] Comment on above: Performed By: #### L [id number] #### [facility] ([facility]) [address] [place] [address] PLATELETS (10*3/UL) IN BLOOD AUTOMATED COUNT 270 10*3/uL Normal 150-400 [facility] Comment on above: Performed By: #### L [id number] #### [facility] ([facility]) [address] [place] [address] RBC (Bld) [#/Vol] 4.17 10*6/uL Low 4.20-5.70 [facility] Comment on above: Performed By: #### L [id number] #### [facility] ([facility]) [address] [place] [address] WBC (Bld) [#/Vol] 16.02 10*3/uL High 4.00-10.60 [facility] Comment on above: Performed By: #### L [id number] #### [facility] ([facility]) [address] [place] [address] DERMATOPATHOLOGY EXAMon 10-17 LAB AP CASE REPORT Normal [facility] Comment on above: Order Comment: Diffu se erythematous nummular almost purpuric patches (some cindy, most no to minimal blanching) across the abdomen, lower chest, proximal thighs and slightly on proximal arms for 1 month. Few areas on the lower legs and dorsal feet (back mostly spared, not on neck or face). Non pruritic. No new medications Result Comment: Derm atopathology Case: [id number] Authorizing Provider: Beryl Neal MD Collected: 10/30/2022 1055 Ordering Location: [address] Urology Received: 10/31/2022 0756 Pathologist: Gege Lyons MD Specimen: Skin, Chest, left Performed By: #### L [id number] #### [facility] ([facility]AK[facility]) [address] [place] [address] LAB AP CLINICAL INFORMATION Diffuse erythematous nummular almost purpuric patches (some cindy, most no to minimal blanching) across the abdomen, lower chest, proximal thighs and slightly on proximal arms for 1 month. Few areas on the lower legs and dorsal feet (back mostly spared, not on neck or face). Non pruritic. No new medications Normal [facility] Comment on above: Order Comment: Diffu se erythematous nummular almost purpuric patches (some cindy, most no to minimal blanching) across the abdomen, lower chest, proximal thighs and slightly on proximal arms for 1 month. Few areas on the lower legs and dorsal feet (back mostly spared, not on neck or face). Non pruritic. No new medications Performed By: #### L [id number] #### [facility] ([facility]) [address] [place] [address] LAB AP DIAGNOSIS COMMENT The findings are [...] lesion are recommended if clinically warranted. Normal [facility] Comment on above: Order Comment: Diffu se erythematous nummular almost purpuric patches (some cindy, most no to minimal blanching) across the abdomen, lower chest, proximal thighs and slightly on proximal arms for 1 month. Few areas on the lower legs and dorsal feet (back mostly spared, not on neck or face). Non pruritic. No new medications Performed By: #### L [id number] #### [facility] ([facility]) [address] [place] [address] LAB AP GROSS DESCRIPTION A. Skin. Normal [facility] Comment on above: Order Comment: Diffu se [...] Part A is received in formalin labeled [facility] and left chest. It consists of a 0.4 x 0.4 x 0.4 cm unoriented farley skin punch. The epidermis is farley and wrinkled. No lesions are identified. The resection margin is inked green and the specimen is bisected to reveal farley-white homogeneous cut surfaces. The specimen is entirely submitted in 1 cassette. Sadiq Beard, Pathologists' Air Table Operator Student Malick Sanchez, Pathologists' Air Table Operator Performed By: #### L [id number] #### [facility] ([facility]) [address] [place] [address] LAB AP MICROSCOPIC DESCRIPTION Sections of this punch biopsy of skin demonstrate and unremarkable epidermis except for a couple foci of parakeratosis. In the subjacent dermis, there is a sparse superficial perivascular and interstitial inflammatory infiltrate composed of lymphocytes, plasma cells, and abundant pale pigment-laden macrophages. Normal [facility] Comment on above: Order Comment: Diffu se erythematous nummular almost purpuric patches (some cindy, most no to minimal blanching) across the abdomen, lower chest, proximal thighs and slightly on proximal arms for 1 month. Few areas on the lower legs and dorsal feet (back mostly spared, not on neck or face). Non pruritic. No new medications Performed By: #### L [id number] #### [facility] ([facility]) [address] [place] [address] LAB AP REPORT FINAL DIAGNOSIS NARRATIVE Normal [facility] Comment on above: Order Comment: Diffu se [...] - See comment Performed By: #### L [id number] #### [facility] ([facility]) [address] [place] [address] Documentationon 10-30-2022 Documentation [id number] Nabil Rasmussen od L 1935 M Date Provider Department Center 10/30/2022 [facility] Heal No family history on file Reason for Visit and Comments: consultation [Other] - rash Normal [facility] HEPATIC FUNCTION PANELon Albumin [Mass/Vol] 2.7 g/dL Low 3.5-5.7 [facility] Comment on above: Performed By: #### L [id number] #### [facility] ([facility]) [address] [place] [address] ALP [Catalytic activity/Vol] 248 U/L High 34-104 [facility] Comment on above: Performed By: #### L [id number] #### [facility] ([facility]) [address] [place] [address] ALT [Catalytic activity/Vol] 115 U/L High 7-52 [facility] Comment on above: Performed By: #### L [id number] #### [facility] ([facility]) [address] [place] [address] AST [Catalytic activity/Vol] 67 U/L High 13-39 [facility] Comment on above: Performed By: #### L [id number] #### [facility] ([facility]) [address] [place] [address] Bilirubin [Mass/Vol] 0.8 mg/dL Normal 0.3-1.0 [facility] Comment on above: Performed By: #### L [id number] #### [facility] ([facility]) [address] [place] [address] Magnesium [Mass/Vol] 0.4 mg/dL High 0-0.2 [facility] Comment on above: Performed By: #### L [id number] #### [facility] ([facility]) [address] [place] [address] Protein [Mass/Vol] 6.7 g/dL Normal 6.0-8.3 [facility] Comment on above: Performed By: #### L [id number] #### [facility] ([facility]) [address] [place] [address] HIV COMBO 4Gon 10-30-2022 HIV COMBO 4G Negative Normal Negative [facility] Comment on above: Performed By: #### L [id number] #### [facility] ([facility]) [address] [place] [address] MR ABDOMEN W AND WO CONTRAST MRCPon [...] mass or pancreatic pathology. Electronically signed: Kai Jacobson. Normal [facility] PROTIME-INRon 10-30-2022 INR IN PPP BY COAGULATION ASSAY 1.20 High 0.90-1.10 [facility] Comment on above: Result Comment: ACCC P [...] RANGE. CHEST 1995;108:231S-246S. Performed By: #### L [id number] #### [facility] [employer]) [address] [place] [address] PROTHROMBIN TIME (PT) IN PPP BY COAGULATION ASSAY 15.3 Seconds High 12.3-14.8 [facility] Comment on above: Performed By: #### L [id number] #### [facility] ([facility]) [address] [place] [address] 30on 10-29-2022 30 The patient is Moderately Stable - Low risk of patient condition declining or worsening The patient's goals for the shift include rest The clinical goals for the shift include VSS, rest Normal [facility] 30 Daily Case Managemen t Update Multidisciplinary rounds have been completed. Barriers to Discharge: patient to see Derm tomorrow at 9am, then possible DC tomorrow. Home with Jake Galan [facility] Diet: Dietary Orders (From admission, onward) Start [...] Therapy Types of Home Health Service needed Senior Living Please indicate your approval for this care by adding your name here: COOPERVICTORINO ESTEBAN 10/28/22 1451 Normal [facility] BASIC METABOLIC PANELon 10-17 Anion gap [Moles/Vol] 8 mmol/L Normal 7-20 [facility] Comment on above: Performed By: #### L [id number] #### [facility] ([facility]) [address] [place] [address] Calcium [Mass/Vol] 8.2 mg/dL Low 8.6-10.3 [facility] Comment on above: Performed By: #### L [id number] #### [facility] [address] [place] [address] Chloride [Moles/Vol] 108 mmol/L High 98-107 [facility] Comment on above: Performed By: #### L [id number] #### [facility] ([facility]) [address] [place] [address] CO2 [Moles/Vol] 24 mmol/L Normal 21-31 [facility] Comment on above: Performed By: #### L [id number] #### [facility] ([facility]) [address] [place] [address] Creatinine [Mass/Vol] 0.97 mg/dL Normal 0.70-1.30 [facility] Comment on above: Performed By: #### L [id number] #### [facility] ([facility]) [address] [place] [address] GLOMERULAR FILTRATION RATE ML/MIN/1.73 SQ M.PREDICTED 76.5 mL/min/1.73m*2 Normal >60.0 [facility] Comment on above: Result Comment: [facility]???s estimated glomerular filtration rate (eGFR) will no [...] of individuals. Performed By: #### L [id number] #### [facility] ([facility]) [address] [place] [address] Glucose [Mass/Vol] 91 mg/dL Normal 70-100 [facility] Comment on above: Performed By: #### L [id number] #### [facility] [address] [place] [address] Potassium [Moles/Vol] 3.3 mmol/L Low 3.5-5.1 [facility] Comment on above: Performed By: #### L [id number] #### [facility] ([facility]) [address] [place] [address] Sodium [Moles/Vol] 137 mmol/L Normal 136-145 [facility] Comment on above: Performed By: #### L [id number] #### [facility] ([facility]) [address] [place] [address] Urea nitrogen [Mass/Vol] 14 mg/dL Normal 7-25 [facility] Comment on above: Performed By: #### L [id number] #### [facility] ([facility]ER) [address] [place] [address] UREA NITROGEN/CREATININE (MASS RATIO) IN SER/PLAS 14.4 Normal [facility] Comment on above: Performed By: #### L [id number] #### [facility] ([facility]) [address] [place] [address] CBCon 10-29-2022 Erythrocyte distribution width (RBC) [Ratio] 15.7 % High 11.5-15.0 [facility] Comment on above: Performed By: #### L [id number] #### [facility] ([facility]) [address] [place] [address] ERYTHROCYTE MEAN CORPUSCULAR HEMOGLOBIN CONCENTRATION (G/DL) BY AUTOMATED 35.0 g/dL Normal 32.0-35.0 [facility] Comment on above: Performed By: #### L [id number] #### [facility] ([facility]) [address] [place] [address] Hematocrit (Bld) [Volume fraction] 35.4 % Low 39.0-55.0 [facility] Comment on above: Performed By: #### L [id number] #### [facility] ([facility]) [address] [place] [address] Hemoglobin (Bld) [Mass/Vol] 12.4 g/dL Low 13.0-17.0 [facility] Comment on above: Performed By: #### L [id number] #### [facility] ([facility]) [address] [place] [address] MCH (RBC) [Entitic mass] 29.6 pg Normal 27.0-33.0 [facility] Comment on above: Performed By: #### L [id number] #### [facility] ([facility]) [address] [place] [address] MCV (RBC) [Entitic vol] 84.5 fL Normal 82.0-98.0 [facility] Comment on above: Performed By: #### L [id number] #### [facility] ([facility]) [address] [place] [address] PLATELETS (10*3/UL) IN BLOOD AUTOMATED COUNT 266 10*3/uL Normal 150-400 [facility] Comment on above: Performed By: #### L [id number] #### [facility] ([facility]) [address] [place] [address] RBC (Bld) [#/Vol] 4.19 10*6/uL Low 4.20-5.70 [facility] Comment on above: Performed By: #### L [id number] #### [facility] ([facility]) [address] [place] [address] WBC (Bld) [#/Vol] 15.59 10*3/uL High 4.00-10.60 [facility] Comment on above: Performed By: #### L [id number] #### [facility] ([facility]) [address] [place] [address] HEPATIC FUNCTION PANELon Albumin [Mass/Vol] 2.7 g/dL Low 3.5-5.7 [facility] Comment on above: Performed By: #### L [id number] #### [facility] ([facility]) [address] [place] [address] ALP [Catalytic activity/Vol] 227 U/L High 34-104 [facility] Comment on above: Performed By: #### L [id number] #### [facility] ([facility]) [address] [place] [address] ALT [Catalytic activity/Vol] 142 U/L High 7-52 [facility] Comment on above: Performed By: #### L [id number] #### [facility] ([facility]) [address] [place] [address] AST [Catalytic activity/Vol] 155 U/L High 13-39 [facility] Comment on above: Performed By: #### L [id number] #### [facility] ([facility]) [address] [place] [address] Bilirubin [Mass/Vol] 1.0 mg/dL Normal 0.3-1.0 [facility] Comment on above: Performed By: #### L [id number] #### [facility] ([facility]) [address] [place] [address] Magnesium [Mass/Vol] 0.5 mg/dL High 0-0.2 [facility] Comment on above: Performed By: #### L [id number] #### [facility] ([facility]) [address] [place] [address] Protein [Mass/Vol] 6.2 g/dL Normal 6.0-8.3 [facility] Comment on above: Performed By: #### L [id number] #### [facility] ([facility]) [address] [place] [address] HEPATITIS A ANTIBODY, IGMon 10-29-2022 HEPATITIS A VIRUS IGM AB PRESENCE IN SER/PLAS Non-Reactive Normal Nonreactive [facility] Comment on above: Performed By: #### L [id number] #### [facility] ([facility]) [address] [place] [address] PROTIME-INRon 10-29-2022 INR IN PPP BY COAGULATION ASSAY 1.34 High 0.90-1.10 [facility] Comment on above: Result Comment: [facility] P RECOMMENDED INR FOR WARFARIN THERAPY CONDITION [...] CHEST 1995;108:231S-246S. Performed By: #### L [id number] #### [facility] ([employer]) [address] [place] [address] PROTHROMBIN TIME (PT) IN PPP BY COAGULATION ASSAY 16.6 Seconds High 12.3-14.8 [facility] Comment on above: Performed By: #### L [id number] #### [facility] ([employer]) [address] [place] [address] 30on 10-28-2022 30 The patient is Moderately Stable - Low risk of patient condition declining or worsening The patient's goals for the shift include sleep The clinical goals for the shift include VSS, Blood cx, safety Normal [facility] 30 The patient is Moderately Stable - Low risk of patient condition declining or worsening The patient's goals for the shift include sleep The clinical goals for the shift include VSS, Blood cx, Normal [facility] 30 The patient is Moderately Stable - Low risk of patient condition declining or worsening The patient's goals for the shift include sleep The clinical goals for the shift include VSS, stable labs and safety Normal [facility] BLOOD CULTUREon 10-28-2022 Bacteria identified Cx Nom (Bld) No growth at 5 days Normal [facility] Comment on above: Performed By: #### L [id number] #### [facility] ([facility]) [address] [place] [address] Order Comment: From a different site than #1. Performed By: #### L [id number] #### [facility] ([facility] [address] [place] [address] Lab Reportson 10-28-2022 Lab Reports [id number]: 127 Normal [facility] Lab Reports [id number]: 127 Normal [facility] URINALYSIS MICROSCOPIC WITH REFLEX CULTUREon 10-28-2022 CASTS IN URINE Normal [facility] Comment on above: Performed By: #### L [id number] #### [facility] ([facility]) [address] [place] [address] CRYSTALS IN URINE Normal [facility] Comment on above: Performed By: #### L [id number] #### [facility] ([facility]) [address] [place] [address] MUCUS (#/HPF) IN URINE SEDIMENT Occasional Normal None Seen, Occasional, Few [facility] Comment on above: Performed By: #### L [id number] #### [facility] ([facility]) [address] [place] [address] OTHER MICROSCOPIC ELEMENTS Normal [facility] Comment on above: Performed By: #### L [id number] #### [facility] ([facility] [address] [place] [address] RBC (#/HPF) IN URINE SEDIMENT 0-2 Abnormal None Seen [facility] Comment on above: Performed By: #### L [id number] #### [facility] ([facility] [address] [place] [address] SQUAMOUS EPITHELIAL CELLS (#/HPF) IN URINE SEDIMENT Few Abnormal None Seen, Occasional [facility] Comment on above: Performed By: #### L [id number] #### [facility] ([facility] [address] [place] [address] WBC (LEUKOCYTE) (#/HPF) IN URINE SEDIMENT 3-5 Abnormal None Seen [facility] Comment on above: Performed By: #### L [id number] #### [facility] ([facility]) [address] [place] [address] URINALYSIS WITH REFLEX CULTU REon 10-28-2022 BILIRUBIN, TOTAL PRESENCE IN URINE Negative Normal Negative [facility] Comment on above: Performed By: #### L [id number] ####[facility] ([facility])[address] [place] [address] Clarity (U) Clear Normal Clear [facility] Comment on above: Performed By: #### L [id number] ####[facility] ([facility])[address] [place] [address] Color (U) Yellow Normal Yellow [facility] Comment on above: Performed By: #### L [id number] ####[facility] ([facility])[address] [place] [address] Glucose (U) [Mass/Vol] Negative Normal Negative [facility] Comment on above: Performed By: #### L [id number] ####[facility] ([facility])[address] [place] [address] HEMOGLOBIN PRESENCE IN URINE Small Abnormal Negative [facility] Comment on above: Performed By: #### L [id number] ####[facility] ([facility])[address] [place] [address] Ketones Ql (U) Trace Abnormal Negative [facility] Comment on above: Performed By: #### L [id number] ####[facility] ([facility])[address] [place] [address] LEUKOCYTE ESTERASE PRESENCE IN URINE BY TEST STRIP Trace Abnormal Negative [facility] Comment on above: Performed By: #### L [id number] ####[facility] ([facility])[address] [place] [address] NITRITE PRESENCE IN URINE Negative Normal Negative [facility] Comment on above: Performed By: #### L [id number] ####[facility] ([facility])[address] [place] [address] pH (U) 5.0 [pH] Normal 5.0-8.0 [facility] Comment on above: Performed By: #### L [id number] ####[facility] ([facility])[address] [place] [address] Protein (U) [Mass/Vol] 30 mg/dL Abnormal Negative [facility] Comment on above: Performed By: #### L [id number] ####[facility] ([facility])[address] [place] [address] Specific gravity (U) [Rel density] 1.021 High 1.015-1.020 [facility] Comment on above: Performed By: #### L [id number] ####[facility] ([facility])[address] [place] [address] ACETAMINOPHEN LEVELon 2022 ACETAMINOPHEN (UG/ML) IN SER/PLAS <10 Low 10-30 [facility] Comment on above: Performed By: #### L [id number] #### [facility] ([facility]) [address] [place] [address] AFP TUMOR MARKERon ALPHA FETOPROTEIN TUMOR MARKER 2 ng/mL Normal 0-9 [facility] Comment on above: Result Comment: INTE RPRETIVE INFORMATION: Alpha Fetoprotein Tumor Marker The Chrissy Chandler Access DxI AFP method is used. Results [...] reference intervals for this test in the [facility] ([facility]). Performed By: [facility] [address] [place] [address] [employer]: Sylvester Levine MD, PhD CLIA Number: [id number] Performed By: #### L [id number] #### [facility] ([facility]) [address] [place] [address] [id number] 2022 ALPHA-1 ANTITRYPSIN 221 mg/dL High 90-200 [facility] Comment on above: Result Comment: To c onvert to umol/L, multiply mg/dL by 0.185 Performed By: [facility] [address] [id number] [employer]: Sylvester Levine MD, PhD CLIA Number: [id number] Performed By: #### L [id number] #### [facility] ([facility]) [address] [place] [address] ANAon 10-27-2022 YANI TITER <1:40 Normal <=1:40 [facility] Comment on above: Result Comment: Test performed using ALLY IFA YANI Hep-2 Test, a pre-standardized assay designed for the qualitative and semi-quantitative detection of antinuclear antibodies. Performed By: #### L [id number] #### [facility] ([facility]) [address] [place] [address] ANTI-SMOOTH MUSCLE ANTIBODY TITERon 10-27-2022 SMOOTH MUSCLE AB, IGG TITER 1:40 High <1:20 [facility] Comment on above: Result Comment: INTE RPRETIVE INFORMATION: Smooth Muscle Ab, IgG Titer Less than 1:20 ........ Negative - No antibody detected. 1:20 - 1:80 .......... Weak Positive - Suggest repeat in two to three weeks with fresh specimen. 1:160 or greater ...... Positive - Suggestive of autoimmune hepatitis or chronic active hepatitis. Performed By: [facility] [address] [place] [address] [employer]: Sylvester Levine MD, PhD CLIA Number: [id number] Performed By: #### L [id number] #### [facility] ([facility]) [address] [place] [address] ANTI-SMOOTH MUSCLE ANTIBODY, IGG WITH REFLEX TO TITERon 10-27-2022 SMOOTH MUSCLE ANTIBODY 48 Units High 0-19 [facility] Comment on above: Result Comment: REFE RENCE [...] suspicion for AIH is strong. Performed by [facility], [address] [place] [id number] [email or web address] Supa Roberts MD, Lab. Director CLIA Number: [id number] Performed By: #### L [id number] #### [facility] (BEAKER) [address] [place] [address] BASIC METABOLIC PANELon 10-17 Anion gap [Moles/Vol] 13 mmol/L Normal 7-20 [facility] Comment on above: Performed By: #### L [id number] #### [facility] ([facility]) [address] [place] [address] Calcium [Mass/Vol] 8.5 mg/dL Low 8.6-10.3 [facility] Comment on above: Performed By: #### L [id number] #### [facility] ([facility]) [address] [place] [address] Chloride [Moles/Vol] 109 mmol/L High 98-107 [facility] Comment on above: Performed By: #### L [id number] #### [facility] ([facility]) [address] [place] [address] CO2 [Moles/Vol] 21 mmol/L Normal 21-31 [facility] Comment on above: Performed By: #### L [id number] #### [facility] ([facility]) [address] [place] [address] Creatinine [Mass/Vol] 0.92 mg/dL Normal 0.70-1.30 [facility] Comment on above: Performed By: #### L [id number] #### [facility] ([facility]) [address] [place] [address] GLOMERULAR FILTRATION RATE ML/MIN/1.73 SQ M.PREDICTED 81.5 mL/min/1.73m*2 Normal >60.0 [facility] Comment on above: Result Comment: [facility]???s estimated glomerular filtration rate (eGFR) will no [...] group of individuals. Performed By: #### L [id number] #### [facility] ([facility]) [address] [place] [address] Glucose [Mass/Vol] 110 mg/dL High 70-100 [facility] Comment on above: Performed By: #### L [id number] #### [facility] ([facility]) [address] [place] [address] Potassium [Moles/Vol] 3.9 mmol/L Normal 3.5-5.1 [facility] Comment on above: Performed By: #### L [id number] #### [facility] ([facility]) [address] [place] [address] Sodium [Moles/Vol] 139 mmol/L Normal 136-145 [facility] Comment on above: Performed By: #### L [id number] #### [facility] [address] [place] [address] Urea nitrogen [Mass/Vol] 20 mg/dL Normal 7-25 [facility] Comment on above: Performed By: #### L [id number] #### [facility] ([facility]) [address] [place] [address] UREA NITROGEN/CREATININE (MASS RATIO) IN SER/PLAS 21.7 Normal [facility] Comment on above: Performed By: #### L [id number] #### [facility] ([facility]) [address] [place] [address] C-REACTIVE PROTEINon 023 C-REACTIVE PROTEIN, SERUM 7.7 mg/dL High <=0.4 [facility] Comment on above: Result Comment: INTE RPRETIVE INFORMATION: C-Reactive Protein Significantly decreased CRP values may result in specimens from patients treated with carboxypenicillins. Performed By: [facility] [address] [place] [address] [employer]der Oxyhydrogen: Sylvester Levine MD, PhD CLIA Number: [id number] Performed By: #### L [id number] #### [facility] ([facility]) [address] [place] [address] CBC WITH AUTO DIFFERENTIALon 10-27-2022 Erythrocyte distribution width (RBC) [Ratio] 15.9 % High 11.5-15.0 [facility] Comment on above: Performed By: #### L [id number] #### [facility] ([facility]) [address] [place] [address] ERYTHROCYTE MEAN CORPUSCULAR HEMOGLOBIN CONCENTRATION (G/DL) BY AUTOMATED 33.9 g/dL Normal 32.0-35.0 [facility] Comment on above: Performed By: #### L [id number] #### [facility] ([facility]) [address] [place] [address] Hematocrit (Bld) [Volume fraction] 40.7 % Normal 39.0-55.0 [facility] Comment on above: Performed By: #### L [id number] #### [facility] ([facility]) [address] [place] [address] Hemoglobin (Bld) [Mass/Vol] 13.8 g/dL Normal 13.0-17.0 [facility] Comment on above: Performed By: #### L [id number] #### [facility] ([facility]) [address] [place] [address] MCH (RBC) [Entitic mass] 29.1 pg Normal 27.0-33.0 [facility] Comment on above: Performed By: #### L [id number] #### [facility] ([facility]) [address] [place] [address] MCV (RBC) [Entitic vol] 85.9 fL Normal 82.0-98.0 [facility] Comment on above: Performed By: #### L [id number] #### [facility] ([facility]) [address] [place] [address] NRBC (PER 100 WBCS) BY AUTOMATED COUNT 0.0 % Normal 0 [facility] Comment on above: Performed By: #### L [id number] #### [facility] ([facility]) [address] [place] [address] PLATELETS (10*3/UL) IN BLOOD AUTOMATED COUNT 160 10*3/uL Normal 150-400 [facility] Comment on above: Performed By: #### L [id number] #### [facility] ([facility]) [address] [place] [address] RBC (Bld) [#/Vol] 4.74 10*6/uL Normal 4.20-5.70 [facility] Comment on above: Performed By: #### L [id number] #### [facility] ([facility]) [address] [place] [address] WBC (Bld) [#/Vol] 22.06 10*3/uL High 4.00-10.60 [facility] Comment on above: Performed By: #### L [id number] #### [facility] ([facility] [address] [place] [address] CONSULTon 10-27-2022 CONSULT ---- -------- Attestation signed by Mary Ellen Sanchez MD at 10/28/2022 3:28 PM I personally saw and examined the patient on the same date of service as fellow. I discussed the findings and therapeutic plan with the fellow. I agree with the documentation, except for any edits/updates below. 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 Accepted by [facility] primary. Just arrived as a transfer now. [...] biliary ductal dilation. Patient was transferred to [facility] for GI evaluation. GI HISTORY SUMMARY TABLE Last EGD Last colonoscopy Primary GI physician PAST MEDICAL, SURGICAL, FAMILY, and SOCIAL HISTORY Past Medical History: Diagnosis Date Alcohol abuse, in remission Coronary artery disease GERD (gastroesophageal reflux disease) HLD (hyperlipidemia) Hypertension [place] (myocardial infarction) ([facility]) Past Surgical History: Procedure Laterality Date CTA [...] by mouth in the morning. 06/10/22 07/10/22 Sanjay Hector MD montelukast (Singulair) 10 mg tablet Take 10 mg by mouth at bedtime. 03/05/22 Historical Provider, jpdwzbnx-ndofpjeyc-QA (Cortisporin) 3.5-10,000-10 mg-unit-mg/mL ophthalmic suspension Administer 4 drops into both eyes every 6 (six) hours. Historical Provider, nitroglycerin (NitrolinguaL) 400 mc (more content not included)... Normal [facility] FERRITINon 10-27-2022 FERRITIN (NG/ML) IN SER/PLAS 211.0 ng/mL Normal 24.0-336.0 [facility] Comment on above: Performed By: #### L [id number] #### [facility] ([facility]) [address] [place] [address] HEPATIC FUNCTION PANELon Albumin [Mass/Vol] 3.1 g/dL Low 3.5-5.7 [facility] Comment on above: Performed By: #### L [id number] #### [facility] ([facility]) [address] [place] [address] ALP [Catalytic activity/Vol] 210 U/L High 34-104 [facility] Comment on above: Performed By: #### L [id number] #### [facility] ([facility]) [address] [place] [address] ALT [Catalytic activity/Vol] 72 U/L High 7-52 [facility] Comment on above: Performed By: #### L [id number] #### [facility] ([facility]) [address] [place] [address] AST [Catalytic activity/Vol] 39 U/L Normal 13-39 [facility] Comment on above: Performed By: #### L [id number] #### [facility] ([facility]) [address] [place] [address] Bilirubin [Mass/Vol] 0.9 mg/dL Normal 0.3-1.0 [facility] Comment on above: Performed By: #### L [id number] #### [facility] ([facility]) [address] [place] [address] Magnesium [Mass/Vol] 0.3 mg/dL High 0-0.2 [facility] Comment on above: Performed By: #### L [id number] #### [facility] ([facility]) [address] [place] [address] Protein [Mass/Vol] 7.2 g/dL Normal 6.0-8.3 [facility] Comment on above: Performed By: #### L [id number] #### [facility] ([facility]) [address] [place] [address] HEPATITIS PANEL, ACUTEon HEPATITIS A VIRUS IGM AB PRESENCE IN SER/PLAS Indeterminate Abnormal Nonreactive [facility] Comment on above: Order Comment: Patie nts with specimens exhibiting indeterminate test results should be retested at approximately one-week intervals. Performed By: #### L [id number] #### [facility] ([facility]) [address] [place] [address] HEPATITIS B VIRUS CORE AB (PRESENCE) IN SER/PLAS BY IMM Non-Reactive Normal Nonreactive [facility] Comment on above: Order Comment: Patie nts with specimens exhibiting indeterminate test results should be retested at approximately one-week intervals. Performed By: #### L [id number] #### [facility] ([facility]) [address] [place] [address] HEPATITIS B VIRUS SURFACE AG PRESENCE IN SERUM Non-Reactive Normal Nonreactive [facility] Comment on above: Order Comment: Patie nts with specimens exhibiting indeterminate test results should be retested at approximately one-week intervals. Performed By: #### L [id number] #### [facility] ([facility]) [address] [place] [address] HEPATITIS C VIRUS AB PRESENCE IN SERUM Non-Reactive Normal Nonreactive [facility] Comment on above: Order Comment: Patie nts with specimens exhibiting indeterminate test results should be retested at approximately one-week intervals. Performed By: #### L [id number] #### [facility] ([facility]) [address] [place] [address] IRON AND TIBCon 10-27-2022 IRON (UG/DL) IN SER/PLAS 85 ug/dL Normal 50-212 [facility] Comment on above: Performed By: #### L [id number] #### [facility] ([facility]) [address] [place] [address] IRON BINDING CAPACITY (UG/DL) IN SER/PLAS 215 ug/dL Low 250-450 [facility] Comment on above: Performed By: #### L [id number] #### [facility] ([facility]) [address] [place] [address] IRON BINDING CAPACITY.UNSATURATE D (UG/DL) IN SER/PLAS 130.0 ug/dL Low 155.0-355.0 [facility] Comment on above: Performed By: #### L [id number] #### [facility] ([facility]) [address] [place] [address] IRON SATURATION (%) IN SER/PLAS 40 % Normal 20-50 [facility] Comment on above: Performed By: #### L [id number] #### [facility] ([facility]) [address] [place] [address] IRON (UG/DL) IN SER/PLAS 105 ug/dL Normal 50-212 [facility] Comment on above: Performed By: #### L [id number] #### [facility] ([facility]) [address] [place] [address] IRON BINDING CAPACITY (UG/DL) IN SER/PLAS 214 ug/dL Low 250-450 [facility] Comment on above: Performed By: #### L [id number] #### [facility] ([facility]) [address] [place] [address] IRON BINDING CAPACITY.UNSATURATE D (UG/DL) IN SER/PLAS 109.0 ug/dL Low 155.0-355.0 [facility] Comment on above: Performed By: #### L [id number] #### [facility] ([facility]) [address] [place] [address] IRON SATURATION (%) IN SER/PLAS 49 % Normal 20-50 [facility] Comment on above: Performed By: #### L [id number] #### [facility] ([facility]) [address] [place] [address] LACTATE DEHYDROGENASEon 10-17 LACTATE DEHYDROGENASE (U/L) IN SER/PLAS BY LAC->PYR RXN 334 U/L High 140-271 [facility] Comment on above: Performed By: #### L [id number] #### [facility] ([facility]) [address] [place] [address] LIVER FIBROSIS CHRONIC VIRAL HEPATITISon 10-27-2022 AZITE-5-XIZVWFFYPUD IN, FIBROMETER 273 mg/dL Normal 131-293 [facility] Comment on above: Performed By: #### L [id number] #### [facility] ([facility]) [address] [place] [address] ALT [Catalytic activity/Vol] 93 U/L High 5-50 [facility] Comment on above: Performed By: #### L [id number] #### [facility] ([facility]) [address] [place] [address] Amylase [Catalytic activity/Vol] 137 U/L High 7-51 [facility] Comment on above: Performed By: #### L [id number] #### [facility] ([facility]) [address] [place] [address] AST [Catalytic activity/Vol] 45 U/L Normal 9-50 [facility] Comment on above: Performed By: #### L [id number] #### [facility] ([facility]) [address] [place] [address] CIRRHOMETER PATIENT SCORE 0.55 Normal [facility] Comment on above: Performed By: #### L [id number] #### [facility] ([facility]) [address] [place] [address] EER FIBROMETER REPORT See Note Normal [facility] Comment on above: Result Comment: Auth orized individuals can access the [facility] Enhanced Report using the following link: [email or web address] Performed By: #### L [id number] #### [facility] ([facility]) [address] [place] [address] FIBROMETER INTERPRETATION See Report Normal [facility] Comment on above: Result Comment: [13] [17] INTERPRETIVE INFORMATION: Fibrometer Interpretation Calculations for the final report are based on accurate data for age, gender, and platelet count. If any of this information needs to be corrected, please contact [facility] Client Services to request a recalculation. Client Services may be contacted at . The [employer] FibroMeter profile serves as a surrogate marker [...] developed and its performance characteristics determined by [facility]. It has not been cleared or approved by the [place] Food and Drug Administration. This test was performed in a CLIA certified laboratory and is intended for clinical purposes. Performed By: [facility] [address] [place] [address] [employer]: Sylvester Levine MD, PhD CLIA Number: [id number] Performed By: #### L [id number] #### [facility] ([facility]) [address] [place] [address] FIBROMETER PATIENT SCORE 0.93 Normal [facility] Comment on above: Performed By: #### L [id number] #### [facility] ([facility]) [address] [place] [address] FIBROMETER PLATELET COUNT 290 k/uL Normal [facility] Comment on above: Performed By: #### L [id number] #### [facility] ([facility]) [address] [place] [address] FIBROMETER PROTHROMBIN INDEX 62 % Low 90-120 [facility] Comment on above: Performed By: #### L [id number] #### [facility] ([facility]) [address] [place] [address] FIBROSIS METAVIR CLASSIFICATION F4[F3-F4] Normal [facility] Comment on above: Result Comment: INTE RPRETIVE [...] F3 is possible Performed By: #### L [id number] #### [facility] ([facility]) [address] [place] [id number] INFLAMETER METAVIR CLASSIFICATION A1/A2 Normal [facility] Comment on above: Result Comment: INTE RPRETIVE INFORMATION: InflaMeter Metavir Classification InflaMeter (activity score) comments A0/A1 Equal probability between A0 and A1 A1/A2 Equal probability between A1 and A2 A2/A3 Equal probability between A2 and A3 Performed By: #### L [id number] #### [facility] ([facility]) [address] [place] [address] INFLAMETER PATIENT SCORE 0.66 Normal [facility] Comment on above: Performed By: #### L [id number] #### [facility] ([facility]) [address] [place] [address] Urea nitrogen [Mass/Vol] 20 mg/dL Normal 7-20 [facility] Comment on above: Performed By: #### L [id number] #### [facility] ([facility]) [address] [place] [address] MANUAL DIFFERENTIALon 2022 ANISOCYTOSIS PRESENCE IN BLOOD BY LIGHT MICROSCOPY Slight Normal [facility] Comment on above: Performed By: #### L [id number] #### [facility] ([facility]) [address] [place] [address] BASOPHILS (10*3/UL) IN BLOOD BY CALCULATION 0.02 10*3/uL Normal 0.00-0.20 [facility] Comment on above: Performed By: #### L [id number] #### [facility] ([facility]) [address] [place] [address] BASOPHILS/100 LEUKOCYTES IN BLOOD BY AUTOMATED COUNT 0.1 % Normal 0.0-1.0 [facility] Comment on above: Performed By: #### L [id number] #### [facility] ([facility]) [address] [place] [address] CESILIA CELLS PRESENCE IN BLOOD BY LIGHT MICROSCOPY Moderate Normal [facility] Comment on above: Performed By: #### L [id number] #### [facility] ([facility]) [address] [place] [address] EOSINOPHILS (10*3/UL) IN BLOOD BY CALCULATION 0.07 10*3/uL Normal 0.00-0.50 [facility] Comment on above: Performed By: #### L [id number] #### [facility] ([facility]) [address] [place] [address] EOSINOPHILS/100 LEUKOCYTES IN BLOOD BY AUTOMATED COUNT 0.3 % Normal 0.0-6.0 [facility] Comment on above: Performed By: #### L [id number] #### [facility] ([facility]) [address] [place] [address] IMMATURE GRANULOCYTES (10*3/UL) IN BLOOD BY CALCULATION 0.71 10*3/uL High 0.00-0.20 [facility] Comment on above: Performed By: #### L [id number] #### [facility] ([facility]) [address] [place] [address] IMMATURE GRANULOCYTES/100 LEUKOCYTES IN BLOOD BY AUTOMATED COUNT 3.2 % High 0.0-1.0 [facility] Comment on above: Performed By: #### L [id number] #### [facility] ([facility]) [address] [place] [address] LYMPHOCYTES (10*3/UL) IN BLOOD BY CALCULATION 2.29 10*3/uL Normal 1.20-4.00 [facility] Comment on above: Performed By: #### L [id number] #### [facility] ([facility]) [address] [place] [address] LYMPHOCYTES/100 LEUKOCYTES IN BLOOD BY AUTOMATED COUNT 10.4 % Low 20.0-45.0 [facility] Comment on above: Performed By: #### L [id number] #### [facility] ([facility]) [address] [place] [address] MONOCYTES (10*3/UL) IN BLOOD BY CALCUATION 0.93 10*3/uL Normal 0.10-1.00 [facility] Comment on above: Performed By: #### L [id number] #### [facility] ([facility]) [address] [place] [address] MONOCYTES/100 LEUKOCYTES IN BLOOD BY AUTOMATED COUNT 4.2 % Low 5.0-12.0 [facility] Comment on above: Performed By: #### L [id number] #### [facility] ([facility]) [address] [place] [address] NEUTROPHILS (10*3/UL) IN BLOOD BY CALCULATION 18.0 10*3/uL High 1.6-7.6 [facility] Comment on above: Performed By: #### L [id number] #### [facility] ([facility]) [address] [place] [address] NEUTROPHILS/100 LEUKOCYTES IN BLOOD BY AUTOMATED COUNT 81.8 % High 40.0-72.0 [facility] Comment on above: Performed By: #### L [id number] #### [facility] ([facility]) [address] [place] [address] OVALOCYTES PRESENCE IN BLOOD BY LIGHT MICROSCOPY Slight Normal [facility] Comment on above: Performed By: #### L [id number] #### [facility] ([facility]) [address] [place] [address] POIKILOCYTOSIS (PRESENCE) IN BLOOD BY LIGHT MICROSCOPY Moderate Normal [facility] Comment on above: Performed By: #### L [id number] #### [facility] ([facility]) [address] [place] [address] POLYCHROMASIA IN BLOOD BY LIGHT MICROSCOPY Slight Normal [facility] Comment on above: Performed By: #### L [id number] #### [facility] ([facility]) [address] [place] [address] TARGET CELLS IN BLOOD BY LIGHT MICROSCOPY Slight Normal [facility] Comment on above: Performed By: #### L [id number] #### [facility] ([facility]) [address] [address] MITOCHONDRIAL ANTIBODIES, M2 on 10-27-2022 MITOCHONDRIAL M2 ANTIBODY 6.1 Units Normal 0.0-24.9 [facility] Comment on above: Result Comment: REFE RENCE [...] does not rule out PBC. Performed By: [facility] [address] [place] [address] [employer] O[employer]: Sylvester Levine MD, PhD CLIA Number: [id number] Performed By: #### L [id number] #### [facility] ([facility]) [address] [place] [address] PATHOLOGY REVIEWon PATHOLOGY REVIEW Reviewed. Normal [facility] Comment on above: Result Comment: Elec tronically signed by Zain Conn MD on 10/28/22 at 8:17 AM. Performed By: #### L [id number] #### [facility] ([facility]) [address] [place] [address] PROTIME-INRon 10-27-2022 INR IN PPP BY COAGULATION ASSAY 1.25 High 0.90-1.10 [facility] Comment on above: Result Comment: [facility] WARFARIN THERAPY CONDITION [...] RANGE. CHEST 1995;108:231S-246S. Performed By: #### L [id number] #### [facility] ([facility]) [address] [place] [address] PROTHROMBIN TIME (PT) IN PPP BY COAGULATION ASSAY 15.7 Seconds High 12.3-14.8 [facility] Comment on above: Performed By: #### L [id number] #### [facility] ([facility]) [address] [place] [address] RPRon 10-27-2022 REAGIN AB PRESENCE IN SERUM BY RPR Non-Reactive Normal Nonreactive [facility] Comment on above: Performed By: #### L [id number] #### [facility] ([facility]) [address] [place] [address] SEDIMENTATION RATEon 023 SEDIMENTATION RATE, ERYTHROCYTE 60 mm/hr High <=10 [facility] Comment on above: Performed By: #### L [id number] #### [facility] ([facility]) [address] [place] [address] TISSUE TRANSGLUTAMINASE, IGA on 10-27-2022 TISSUE TRANSGLUTAMINASE, IGA 3 U/mL Normal 0-3 [facility] Comment on above: Result Comment: INTE RPRETIVE [...] positive predictive value for disease. Performed By: [facility] [address] [place] [address] [employer]: Sylvester Levine MD, PhD CLIA Number: [id number] Performed By: #### L [id number] #### [facility] ([facility]) [address] [place] [address] TSH3 REFLEX TO FT4on 023 THYROTROPIN (MIU/L) IN SER/PLAS BY DETECTION LIMIT <= 0.05 MIU/L 0.91 mIU/L Normal 0.34-5.60 [facility] Comment on above: Performed By: #### L [id number] #### [facility] ([facility]) [address] [place] [address] VITAMIN B12on 10-27-2022 Cobalamin (Vitamin B12) [Mass/Vol] 1187 pg/mL High 180-914 [facility] Comment on above: Result Comment: REFE RENCE RANGES: 180-914 pg/mL Normal 145-179 pg/mL Indeterminate <145 pg/mL Deficient Performed By: #### L [id number] #### [facility] ([facility]) [address] [place] [address] ECHOCARDIO M/2D COMPLETEon 0 06-25-2022 ECHOCARDIO M/2D COMPLETE Patient Name Site Name DC RASMUSSEN [facility] Account No Medical Record Number Age Sex Date Time [id number] [facility]:[id number] M 06/25/2022 08:09 At the Request Of SHARI SULLIVAN ECHOCARDIOGRAM REPORT PROCEDURE: CARDIO PULMONARY ECHOCARDIO M/2D [...] Pressure: 94.86 ml, 94.86 ml Dictated by: Sanjay Hector M.D. on 06/25/2022 at 18:03 Approved by: Sanjay Hector M.D. on 06/25/2022 at 18:06 Normal [facility] Physician Referralon 023 Physician Referral [id number]: 127 Normal [facility] Ambulatory Visit Summaryon 0 05-22-2022 Ambulatory Visit Summary DC RASMUSSEN :1935 Visit Date:05/22/2022 Ambulatory Visit Instructions Your Diagnosis BPH with urinary obstruction Your Care Team Attending Physician - MEGHAN HAWKINS, ALE Reed Primary Care Physician - NOLAN BAUTISTA MD [...] 40 mg Tab) ipratropium nasal (Atrovent 0.03% Nazlini) levalbuterol (levalbuterol 1.25 mg/0.5 mL Concentrate) metoprolol (metoprolol 100 mg ER Tab) montelukast (Singulair 10 mg Tab) multivitamin (Vitamin B Complex oral capsule) nitroglycerin (nitroglycerin 0.4 mg SubL [place]) pantoprazole (Protonix 40 mg Tab-DR) potassium chloride (Potassium Chloride (Pqx-Sutx-Waa 10)) tamsulosin (Flomax 0.4 mg Cap) zolpidem [...] ALE FAN PA-C Where: [facility] Patient Educationon 05-23-19 Patient Education Urology [...] Follow these instructions at home: ? Take pfee-zxn-fjfndwo and prescription medicines only as told by [...] You d (more content not included)... Normal [facility] Urology Office/Clinic Noteon 05-22-2022 Urology Office/Clinic [...] Contact Information MEGHAN HAWKINS, ALE Reed, URL [address] [place] [address] Additional Instructions: 6 mos no labs Patient Education Benign Prostatic Hyperplasia Documentation recorded by the scribbrianna Rodriguez accurately reflects the services(s) I performed and decisions made by me. Authenticated by Ale Fan PA-C on 05/22/2022 14:54:27. Kayli Draper, personally scribed for LYNSEY Washburn on 05/22/2022 [...] 20 mg Tab, Oral, Daily Atrovent 0.03% Nazlini, 2 spray(s), Nasal, TID Benadryl 25 mg Cap, Oral, q6hr cetirizine 10 mg Tab, Oral, Daily Cipro 500 mg Tab, See Instructions, Not taking diazepam 5 mg Tab, Oral, q8hr Flomax 0.4 mg Cap, Oral, Daily Lasix 40 mg Tab, Oral, Daily levalbuterol 1.25 mg/0.5 mL Concentrate, NEB, TID metoprolol 100 mg ER Tab, Oral, Daily nitroglycerin 0.4 mg SubL [place], SubLingual, q5min Potassium Chloride (Fmv-Rykm-Unq 10), Oral, BID Protonix 40 mg Tab-DR, [...] Father. Congenital (more content not included)... Normal [facility] Comment on above: Result Comment: Elec tronically Signed By: MEGHAN HAWKINSALE\.br\Date and Time Signed: 05/22/22 14:54 EDT\.br\Electronically Co-Signed By: Kayli Rodriguez\.br\Date and Time Co-Signed: 05/22/22 14:50 EDT Consent for Procedure/Surger loydn 03-25-2022 Consent for Procedure/Surgery [id number]: 127 Normal [facility] Ambulatory Visit Summaryon 0 03-24-2022 Ambulatory Visit Summary DC RASMUSSEN :1935 Visit Date:03/24/2022 Ambulatory Visit Instructions Your Diagnosis Split urinary stream BPH (benign prostatic hyperplasia) Incomplete bladder emptying Your Care Team Attending Physician - YECENIA KIM, Papa Velarde Primary Care Physician - NOLAN BAUTISTA MD This Is Your Medications List ciprofloxacin (Cipro 500 mg Tab) Contact prescribing physician if questions or concerns acetaminophen (Tylenol Extra Strength 500 mg oral tablet) ascorbic acid (Vitamin C 1000 mg oral tablet) atorvastatin (atorvastatin 20 mg Tab) cetirizine (cetirizine 10 mg Tab) diazepam (diazepam 5 mg Tab) diphenhydrAMINE (Benadryl 25 mg Cap) furosemide (Lasix 40 mg Tab) ipratropium nasal (Atrovent 0.03% Nazlini) levalbuterol (levalbuterol 1.25 mg/0.5 mL Concentrate) metoprolol (metoprolol 100 mg ER Tab) montelukast (Singulair 10 mg Tab) multivitamin (Vitamin B Complex oral capsule) nitroglycerin (nitroglycerin 0.4 mg SubL [place]) pantoprazole (Protonix 40 mg Tab-DR) potassium chloride (Potassium Chloride (Jbx-Acgr-Qbc 10)) tamsulosin (Flomax 0.4 mg Cap) zolpidem (Ambien 10 mg Tab) Procedures Performed Cystoscope (03/24/2022), Open removal of foreign body from left atrium (09/07/2019), Upper GI (gastrointestinal) endoscopy (02/01/2019), Laparoscopic cholecystectomy (12/2018), Colonoscopy (05/06/2017), Hernia repair (2002), Angioplasty (1995), Vasectomy (1968), Tonsillectomy (5), Cataract, Cholecystectomy, Excision of parapharyngeal mass, Tonsillectomy. Discharge Vitals Height 188 cm Height 74 in Weight 94 kg Weight 206.8 lb BMI 26.6 What to do next Scheduled Follow-Up Appointments 2022 2:30 PM EDT With: ALE FAN PA-C [facility] Patient Educationon 03-24-19 Patient Education Urology [...] Follow these instructions at home: ? Take udwi-gma-qkjzumc and prescription medicines only as told by [...] d (more content not included)... Normal [facility] Urology Office/Clinic Noteon 03-24-2022 Urology Office/Clinic [...] over time. Follow-up With When Contact Information Papa REYNA MD, URL [address] [address]- Additional Instructions: f/u 6 weeks with Akbar Patient Education Benign Prostatic Hyperplasia Kayli Draper, personally scribed for Dr. Reyna on 03/24/2022 07:48:13. . Documentation recorded by the elijahibKayli reed, accurately reflects the services(s) I performed and [...] Incomplete edgar (more content not included)... Normal [facility] Comment on above: Result Comment: Elec tronically Signed By: Papa REYNA MD\.br\Date and Time Signed: 03/24/22 07:54 EST\.br\Electronically Co-Signed By: Kayli oRdriguez\.br\Date and Time Co-Signed: 03/24/22 07:48 EST Formson 03-11-2022 Forms [id number]#[id number] :127 Normal [facility] Physician Referralon 023 Physician Referral [id number] [id number]#[id number]: 127 Normal [facility] Screenson 03-11-2022 Screens [id number]#[id number] :127 [facility] Urology Office/Clinic Noteon 03-07-2022 Urology [...] not new. 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 FORD, not new, stable. Lasix controls swelling [...] like to proceed w/ Cysto/possible UD. Prefers [place] office for Cysto. 2. BPH (benign prostatic [...] Urnls Dip Stick Auto w/o Microscopy POC 94157 3. Incomplete bladder emptying (R33.9: Retention of [...] body fro (more content not included)... Normal [facility] Comment on above: Result Comment: Elec tronically Signed By: Akbar Judge\.br\Date and Time Signed: 03/07/22 20:24 EST Ambulatory Visit Summaryon 0 03-05-2022 Ambulatory Visit Summary DC RASMUSSEN :1935 Visit Date:03/05/2022 Ambulatory Visit Instructions Your Diagnosis BPH (benign prostatic hyperplasia) Split urinary stream Tests Performed Urnls Dip Stick Auto w/o Microscopy POC 13077 Your Care Team Attending Physician - Akbar [...] 40 mg Tab) ipratropium nasal (Atrovent 0.03% Nazlini) levalbuterol (levalbuterol 1.25 mg/0.5 mL Concentrate) metoprolol (metoprolol 100 mg ER Tab) montelukast (Singulair 10 mg Tab) multivitamin (Vitamin B Complex oral capsule) nitroglycerin (nitroglycerin 0.4 mg SubL [place]) pantoprazole (Protonix 40 mg Tab-DR) potassium chloride (Potassium Chloride (Moo-Pwhq-Xon 10)) tamsulosin (Flomax 0.4 mg Cap) zolpidem [...] Every day Unchanged ipratropium nasal (Atrovent 0.03% Nazlini) 2 Sprays Nasal Inhalation 3 times a day Unchanged levalbuterol (levalbuterol 1.25 mg/ 0.5 mL Concentrate) Nebulized inhalation (aerosol) 3 times a day Unchanged metoprolol (metoprolol 100 mg ER Tab) By Mouth Every day Unchanged montelukast (Singulair 10 mg Tab) By Mouth Every day Unchanged multivitamin (Vitamin B Complex oral capsule) By Mouth Every day Unchanged nitroglycerin (nitroglycerin 0.4 mg SubL [place]) Sublingual Every 5 minutes Unchanged pantoprazole (Protonix 40 mg Tab-DR) By Mouth Every day Unchanged potassium chloride (Potassium Chloride (Fjf-Uswk-Vlc 10)) By Mouth 2 times a day Unchanged tamsulosin (Flomax 0.4 mg Cap) By Mouth Every day Unchanged zolpidem (Ambien 10 mg Tab) 1 Tablets By Mouth Once a day (at bedtime) as needed for for sleep Test Results Urnls Dip Stick Auto w/o Microscopy POC 03182 (03/05/2022) Bilirubin Urine Dipstick - Negative Blood Urine Dipstick - Negative Glucose Urine Dipstick - Negative Ketones Urine Dipstick - Negative Leukocytes Urine Dipstick - 1+ Small Nitrite Urine Dipstick - Negative Protein Urine Dipstick - Negative Specific Wink Urine Dipstick - 1.025 Urine Appearance Urine [...] receiving treatment for. Angina at rest Normal [facility] Covid-19 PCR (CVDTB)on 10-18 SARS-CoV-2 (COVID-19) RNA KAY+probe Ql (Unsp spec) Detected Critically abnormal NOT DETECTED [facility] Comment on above: Result Comment: This test is not yet approved or cleared by the [place] FDA. When there are no FDA-approved or cleared tests available, and other criteria are met, FDA can make tests available under an emergency access mechanism called an Emergency Use Authorization (EUA). The EUA for this test is supported by the Seed Tester of Health and Human Service's (HHS's) declaration [...] used). Performed By: #### C VDTB #### [facility] [address], [place] [address] Dr. Venkat Scott [facility] Metabolic Pane [facility] 04-15-2021 Albumin [Mass/Vol] 4.5 g/dL Normal 3.6-5.1 Jermain mario [place] [employer] Comment on above: Performed By: #### C MP, LIPD, TSH reflex FT4 #### [facility] [address], [place] [id number] Albumin/Globulin [Mass ratio] 2.1 {ratio} Normal 1.0-2.5 [facility] [employer] Comment on above: Performed By: #### C MP, LIPD, TSH reflex FT4 #### [facility] [address], [place] [id number] ALP [Catalytic activity/Vol] 328 U/L High 40-129 [facility] Comment on above: Performed By: #### C MP, LIPD, TSH reflex FT4 #### [facility] [address], [place] [id number] ALT [Catalytic activity/Vol] 104 U/L High 9-46 [facility] Comment on above: Result Comment: 01/16 Female reference range changed. Performed By: #### C MP, LIPD, TSH reflex FT4 #### [facility] [address], [place] [id number] Anion gap [Moles/Vol] 22 mmol/L High 12-20 [facility] Comment on above: Result Comment: Effe ctive 02/21/2019 reference range changed. Performed By: #### C MP, LIPD, TSH reflex FT4 #### [facility] [address], [place] [id number] AST [Catalytic activity/Vol] 86 U/L High 10-40 [facility] Comment on above: Result Comment: Spec imen is hemolyzed. Results may be affected. Performed By: #### C MP, LIPD, TSH reflex FT4 #### [facility] [address], [place] [id number] Bilirubin [Mass/Vol] 0.46 mg/dL Normal 0.30-1.20 [facility] Comment on above: Performed By: #### C MP, LIPD, TSH reflex FT4 #### [facility] [address], [place] [id number] BUN/CREA 17 Ratio Normal 6-22 [facility] Comment on above: Performed By: #### C MP, LIPD, TSH reflex FT4 #### [facility] [address], [place] [id number] Calcium [Mass/Vol] 9.5 mg/dL Normal 8.6-10.2 [facility] Comment on above: Performed By: #### C MP, LIPD, TSH reflex FT4 #### [facility] [address], [place] [id number] Chloride [Moles/Vol] 106 mmol/L Normal 98-107 [facility] Comment on above: Performed By: #### C MP, LIPD, TSH reflex FT4 #### [facility] [address], [place] [id number] CO2 [Moles/Vol] 20 mmol/L Normal 20-31 [facility] Comment on above: Performed By: #### C MP, LIPD, TSH reflex FT4 #### [facility] [address], [place] [id number] Creatinine [Mass/Vol] 1.0 mg/dL Normal 0.7-1.4 [facility] Comment on above: Performed By: #### C MP, LIPD, TSH reflex FT4 #### [facility] [address], [place] [id number] eGFRAA 86 mL/min/1.73m2 Normal >60 [facility] Comment on above: Performed By: #### C MP, LIPD, TSH reflex FT4 #### [facility] [address], [place] [id number] eGFRNAA 71 mL/min/1.73m2 Normal >60 [facility] Comment on above: Performed By: #### C MP, LIPD, TSH reflex FT4 #### [facility] [address], [place] [id number] Globulin (S) [Mass/Vol] 2.1 g/dL Normal 1.9-3.7 [facility] Comment on above: Performed By: #### C MP, LIPD, TSH reflex FT4 #### [facility] [address], [place] [id number] Glucose [Mass/Vol] 92 mg/dL Normal 65-99 [facility] Comment on above: Result Comment: For FASTING Glucose --- ADA reference ranges: Normal 65-99 mg/dl Prediabetes 100-125 Diabetes >/= 126 Performed By: #### C MP, LIPD, TSH reflex FT4 #### [facility] [address], [place] [id number] Potassium [Moles/Vol] 5.0 mmol/L Normal 3.5-5.5 [facility] Comment on above: Result Comment: Spec imen is hemolyzed. Results may be affected. Performed By: #### C MP, LIPD, TSH reflex FT4 #### [facility] [address], [place] [id number] Protein [Mass/Vol] 6.6 g/dL Normal 6.1-8.1 [facility] Special[facility] Comment on above: Performed By: #### C MP, LIPD, TSH reflex FT4 #### [facility] [address], [place] [id number] Sodium [Moles/Vol] 142 mmol/L Normal 135-146 [facility] [employer] Architect Comment on above: Performed By: #### C MP, LIPD, TSH reflex FT4 #### [facility] [address], [place] [id number] Urea nitrogen [Mass/Vol] 17 mg/dL Normal 7-25 [facility] Comment on above: Performed By: #### C MP, LIPD, TSH reflex FT4 #### [facility] [address], [place] [id number] Lipid Panelon 04-15-2021 Cholesterol [Mass/Vol] 164 mg/dL Normal 125-200 [facility] Comment on above: Result Comment: Low risk < 200mg/dL Borderline risk 201-239 mg/dl High risk > or equal to 240 Performed By: #### C MP, LIPD, TSH reflex FT4 #### [facility] [address], [place] [id number] Cholesterol in HDL [Mass/Vol] 49 mg/dL Normal >40 [facility] Comment on above: Result Comment: High Cardiovascular Risk HDL <40 mg/dL Low Cardiovascular Risk HDL > or equal to 60 mg/dl Performed By: #### C MP, LIPD, TSH reflex FT4 #### [facility] [address], [place] [id number] Cholesterol in LDL [Mass/Vol] 95 mg/dL Normal [facility] Comment on above: Result Comment: LDL ATP III CLASSIFICATION LDL less than 100 mg/dl Optimal LDL 100-129 mg/dl Near or above optimal LDL 130-159 Borderline high LDL 160-189 High LDL greater than 189 mg/dl Very High Performed By: #### C MP, LIPD, TSH reflex FT4 #### [facility] [address] [place], [place] [id number] Cholesterol in VLDL [Mass/Vol] 20 mg/dL Normal [facility] [employer] Comment on above: Performed By: #### C MP, LIPD, TSH reflex FT4 #### [facility] [address] [place], [place] [id number] Cholesterol.total/C holesterol in HDL [Mass ratio] 3 {ratio} Normal [facility] [employer] Comment on above: Performed By: #### C MP, LIPD, TSH reflex FT4 #### [facility] [address] [place], [place] [id number] Triglyceride [Mass/Vol] 99 mg/dL Normal 30-150 [facility] [employer] Comment on above: Result Comment: TRIG ATPIII CLASSIFICATIONS TRIG less than 150 mg/dl Normal TRIG 150-199 mg/dl Borderline High TRIG 200-500 mg/dl High TRIG greather than 500 mg/dl Very High Performed By: #### C MP, LIPD, TSH reflex FT4 #### [facility] [address], [place] [id number] TSH w/ Reflex to Free T4on 0 04-15-2021 TSH 2.400 uIU/mL Normal 0.400-4.500 [facility] [employer] Architect Comment on above: Performed By: #### C MP, LIPD, TSH reflex FT4 #### [facility] [address], [place] [id number] CHEST AND LATERALon 09-26-19 20 CHEST AND LATERAL [facility] Department of Radiology [address] [place] [id number] == Patient Name: DC RASMUSSEN : 1935 Sex: M Age: Race: White Pt. Location: Patient Status: O Ordered Date: 09/26/2019 12:25:00 PM Completed Date: 09/26/2019 12:56 PM Requesting Provider: JAUN MAYFIELD Attending Provider: JAUN MAYFIELD Report Copy To: NOLAN BAUTISTA Signs & Symptoms: J44.9 Chronic obstructive pulmonary disease, unspecified I10 History: Arnjana Comments: , , , Ordering Provider - [...] effusions. Electronically signed: Zain Stanton. Transcribed by: [email or web address], User Resident: Electronically Signed by: ZAIN STANTON @ 09/26/2019 03:09 PM Normal [facility] Comment on above: Order Comment: , , = ========= , Ordering Provider - JAUN MAYFIELD MD , [facility] CNCO Letter MohanEsthelasonali Dimas [facility] Trinh MD [id number] [facility] [address]Hbcp: [phone] Krtihz Barry, MD[address] [place] [address] Dr. Oglesby,Thank you for referring Mr. Rasmussen [...] early in 2016.He was seen by a clerk rating and underwent a skin biopsy and was [...] primary physician, and skinbiopsy results from the clerk rating.I agree with the current plan to reintroduce medications every 4-6 weeks astolerated and as clinically appropriateI would like to recheck a CBC with differential to see where the eosinophilcount is today. We discussed doing when here at the [facility] but thepatient would like to have [...] Trinh MD?This note was partially generated using Glooko voice recognition system, andthere may be some incorrect words, spellings, and punctuation that were notnoted in checking the note before saving.???Sincerely,Sweta Trinh MD(Signed electronically to expedite processing) Normal [facility] [place] CNCO Letter TextNosonali hoskins Trinh MD [id number] [facility] [address]Zjzy: [phone] Ijujze 2016Nolan Bautista MD[address] [place] [address] Bautista,Thank you for referring Mr. Rasmussen [...] early in 2016.He was seen by a clerk rating and underwent a skin biopsy and was [...] primary physician, and skinbiopsy results from the clerk rating.I agree with the current plan to reintroduce medications every 4-6 weeks astolerated and as clinically appropriateI would like to recheck a CBC with differential to see where the eosinophilcount is today. We discussed doing when here at the [facility] but thepatient would like to have [...] he will follow-up as needed?Jose Trinh MD Normal [facility] [place] CNOVon 09-29-2016 CNOV Office Visit ([facility]) ESTHELA RASMUSSENOOD ([id number]) 1935 MDate Time Provider Department09/29/16 1:30 PM JOSE TRINH [...] very good health for his age until aboutNov of last year. He developed pneumonia complicated [...] the hospital with a rash. Since discharge shehas had a very pruritic rash that he describes as looking very similar tomeasles. These rashes were not associated with GI complaints, nausea,vomiting, fevers, joint pain, or known renal dysfunction. No lesions of thepalms, soles of the feet, or oral lesions were reported.He was also diagnosed with a convulsive disorder and was started on antiseizuremedicines early in 2016.He was seen by a clerk rating and underwent a skin biopsy and was [...] 1280 in January 2016 and approximately 800 inJ 2017.ASSESSMENT/PLANDRUG RASH WITH EOSINOPHILIAPatient is currently asymptomatic, [...] primary physician, and skinbiopsy results from the clerk rating.I agree with the current plan to reintroduce medications every 4-6 weeks astolerated and as clinically appropriateI would like to recheck a CBC with differential to see where the eosinophilcount is today. We discussed doing when here at the [facility] but thepatient would like to have [...] Otherwise, he will follow-up as neededJose Trinh MDThis note was partially generated using Glooko voice recognition system, andthere may be some incorrect words, spellings, and punctuation that were notnoted in checking the note before saving.?Referring Provider: NOLAN BAUTISTA II [[id number]]Allergies As of Date: 09/29/2016 Noted Allergy ReactionALBUTEROL [...] Status:Closed by JOSE TRINH MD on 10/07/16 Normal [facility] [place] PROGRESSon 09-29-2016 PROGRESS HNO ID: [id number]: Jose Reeder: (none)Author Type: PhysicianType: Progress NotesFiled: 10/07/2016 8:23 [...] very good health for his age until aboutNov of last year. He developed pneumonia complicated [...] early in 2016.He was seen by a clerk rating and underwent a skin biopsy and was [...] primary physician, andskin biopsy results from the clerk rating.I agree with the current plan to reintroduce medications every 4-6 weeksas tolerated and as clinically appropriateI would like to recheck a CBC with differential to see where theeosinophil count is today. We discussed doing when here at the [facility] but the patient would like to [...] Otherwise, he will follow-up as neededJose Trinh MDThis note was partially generated using Glooko voice recognition system,and there may be some incorrect words, spellings, and punctuation thatwere not noted in checking the note before saving.? Normal [facility] [place] Vital Signs Date Time Vital Sign Value Performing Clinician Abena bales 03-05-2022 14:39-0500 Blood Pressure Location [facility] 03-05-2022 14:39-0500 Diastolic blood pressure 80 mm[Hg] Akbar Hamilton [facility] 03-05-2022 14:39-0500 Heart rate 74 /min [facility] 03-05-2022 14:39-0500 Systolic blood pressure 151 mm[Hg] [facility] Encounters Encounter Date Encounter Type Care Provider Facility Start: 09-07-2023 End: 09-07-2023 ambulatory RODRIGUEZ QUINONES Not Available Start: 07-15-2023 End: 07-15-2023 ambulatory [facility] Start: 06-01-2023 End: 06-01-2023 ambulatory NOLAN BAUTISTA Not Available Start: 05-05-2023 End: 05-05-2023 ambulatory VENECIA BROWNLEE Not Available Start: 03-05-2023 ambulatory ALE FAN Facili ty:[facility] Start: 03-05-2023 End: 03-05-2023 Patient encounter procedure ALE FAN [facility] Start: 02-19-2023 End: 02-19-2023 ambulatory NOLAN BAUTISTA Not Available Start: 01-06-2023 End: 01-06-2023 ambulatory [facility] Start: 11-21-2022 End: 11-21-2022 ambulatory [facility] Start: 10-31-2022 Evaluation and management of inpatient DEIDRE ENIX [facility] Start: 10-28-2022 Evaluation and management of inpatient JENN SHANE [facility] Start: 10-28-2022 Evaluation and management of inpatient FABIANO BRODY [facility] Start: 10-28-2022 ambulatory ALE FAN Facility :[facility] Start: 10-27-2022 End: 10-31-2022 Evaluation and management of inpatient BUD HOY [facility] Start: 06-25-2022 End: 06-26-[address] DOCTOR MONTEMAYOR Facility:[facility] Start: 05-22-2022 End: 05-23-2022 ambulatory ALE FAN Facility:[facility] Start: 03-24-2022 End: 03-25-2022 ambulatory Papa REYNA Facility:[facility] Start: 03-24-2022 End: 03-24-2022 Patient encounter procedure Papa REYNA [facility] Start: 03-05-2022 End: 03-06-2022 ambulatory Akbar Ugalde Facility:[facility] Start: 03-05-2022 End: 03-05-2022 Patient encounter procedure Akbar Ugalde [facility] Start: 01-23-2022 ambulatory ALE FAN Facility :[facility] Start: 11-11-2021 End: 11-11-[address] NOLAN BAUTISTA Facility:[facility] Start: 09-29-2016 End: 09-29-2016 Ambulatory JOSE TRINH [facility] Procedures Date Procedure Procedure Detail Performing Clinician Start: 03-24-2022 Cystoscope, device (physical object) Papa REYNA Start: 09-07-2019 Open removal of foreign body from left atrium Akbar Ugalde Comment on above: removal foreign body lt atrium, repair o f perforation, cryomaze procedure, ASD closure Start: 02-01-2019 Esophagogastroduodenoscopy Akbar Moralesm ons Start: 12-17-2018 Laparoscopic cholecystectomy Violetae Cl emons Start: 05-06-2017 Colonoscopy Akbar Aftab Start: 02-16-2002 Hernia repair Akbar Ugalde Comment [...] Immunization Date Immunization Notes Care Provider Gallo avery 02-05-2022 SARS-CoV-2 (COVID-19 ) [id number] ALE FAN [facility] 12-23-2021 influenza virus vaccine, unspecified formulation ALE FAN [facility] 02-11-2021 SARS-CoV-2 (COVID-19 ) mRNA-1273 vaccine ALE FAN [facility] 12-05-2020 influenza virus vaccine, unspecified formulation ALE FAN [facility] 04-10-2020 tetanus toxoid, redu alon diphtheria toxoid, and acellular pertussis vaccine, adsorbed ALE MEGHAN [facility] 04-05-2020 SARS-CoV-2 (COVID-19 ) mRNA-1273 vaccine ALE MEGHAN [facility] 03-05-2020 SARS-CoV-2 (COVID-19 ) mRNA-1273 vaccine ALE MEGHAN [facility] 01-06-2019 influenza virus vaccine, unspecified formulation ALE MEGHAN [facility] 01-21-2018 influenza virus vaccine, unspecified formulation ALE MEGHAN [facility] 11-25-2016 influenza virus vaccine, unspecified formulation ALE MEGHAN [facility] 04-06-2015 pneumococcal conjuga te vaccine, 13 valent ALE MEGHAN [facility] 01-22-2015 influenza virus vaccine, unspecified formulation ALE MEGHAN [facility] 12-21-2006 influenza, whole ALE PE RRY [facility] Payers Date Payer Category Payer Medicare [id number] 1957 [employer] ([employer]VI and others) [id number] 1957 Medicare [id number] 1935 Unknown [id number] 1935 Unknown [id number] 1935 Unknown [id number] 1935 Unknown [id number] 1935 Unknown [id number] 1935 Unknown [id number] [id number] 1935 Unknown [id number] 1935 Unknown [id number] 1935 Unknown [id number] 1935 Unknown [id number] Social History Date Type Detail Facility Start: 03-05-2022 Tobacco smoking status Ex-smoker (fi nding) [facility] Tobacco smoking status Never [facility] Sex Assigned At Male [facility] Functional Status Date Assessment Result Facility 03-24-2022 Functional Status N/A [facility] 03-05-2022 Functional Status N/A [facility] Clinical Notes 03-24-2022 to 07-15-2023 Note Date & Type Note Facility 07-15-2023 Note [place] [facility] Subjective Dc Rasmussen is a 88 y.o. year old male patient being seen for 6 mo follow up CAD, PAF, HFpEF, and ascending aortic dilatation. No recent labs or imaging. Patient denies chest pain, SOB, palpitations, and lightheadedness/syncope. Doing very well from cardiac standpoint. Patient Active Problem List Diagnosis Localized edema [...] Venous stasis dermatitis of both lower extremities Abdominal pain Anemia Debility Edema of lower extremity Encounter for deep vein thrombosis (DVT) prophylaxis Hypoalbuminemia Postoperative pain No family history on file. Social History Tobacco Use Smoking status: Former Types: Cigarettes Smokeless tobacco: Never HPI He is seen in follow-up. He is an 88-year-old man with history of coronary disease status post stenting of the RCA and the LAD in the past, last time in September 2018 with stenting of the LAD with a drug-eluting stent in the setting of ischemia on stress testing. He also has history of paroxysmal atrial fibrillation and was previously maintained on anticoagulation therapy. However due to history of recurrent GI bleeding, risk of falls and history of seizure he was deemed not a candidate for long-term anticoagulation therapy. In August 2019 he underwent attempt at placement of Watchman left atrial appendage occluder and the procedure was complicated by left atrial appendage perforation. He underwent surgical repair and exclusion of the left atrial appendage as well as left atrial cryo-maze procedure. He did well. He has past history of seizures. In December 2018 he underwent laparoscopic cholecystectomy. Following that he sustained abdominal bleeding. He was admitted on 01/09/2020 with chest pain at the [facility] and work-up was negative. His EKG was normal. He underwent a nuclear stress test that showed no evidence of ischemia. he has history of ascending aortic aneurysm which is being monitored by imaging. He also has heart failure preserved ejection fraction and is maintained on diuretic therapy. Today he reports that he has been doing well. he denies chest pain, shortness of breath, palpitations, dizziness, syncope. He has mild leg edema. he has good exercise tolerance. There is no claudication. Review of Systems Cardiovascular: Positive for leg swelling (improving). Musculoskeletal: Positive for muscle weakness. Neurological: Positive for weakness. All other systems reviewed and are negative. Objective Visit Vitals BP 130/72 (BP Location: Right arm, Patient Position: Sitting) Pulse 65 Ht 1.905 m (6' 3 ) Wt 88.9 kg (196 lb) SpO2 98% BMI 24.50 kg/m??? Smoking Status Former BSA 2.17 m??? Physical Exam Constitutional: Appearance: He is well-developed. He is not ill-appearing. HENT: Head: Normocephalic and atraumatic. Nose: Nose normal. Eyes: General: No scleral icterus. Pupils: Pupils are equal, round, and reactive to light. Neck: Thyroid: No thyromegaly. (more content not included)... [facility] 01-06-2023 Note Cardiology Clinic No te Subjective [...] sustained abdominal bleeding. He was admitted to [facility]. His aspirin was stopped and then he [...] chest. The pain (more content not included)... [facility] 01-06-2023 Note Patient here for 6 w nikolski follow up CAD, PAF, and HFpEF. He [...] All other systems reviewed and are negative. [facility] 11-21-2022 Note Patient here for fol low up TB for afib w/ RVR. He was started on amiodarone. Furosemide was stopped and he is now c/o LE edema. Denies chest pain, SOB, lightheadedness, and palpitations. Review of Systems Cardiovascular: Positive for leg swelling. Respiratory: Positive for cough. Musculoskeletal: Positive for muscle weakness. Neurological: Positive for weakness. All other systems reviewed and are negative. [facility] 11-21-2022 Note Cardiology Clinic No te Subjective [...] sustained abdominal bleeding. He was admitted to [facility]. His aspirin was stopped and then he [...] chest. The pain (more content not included)... [facility] 10-31-2022 Note Please close. Inpati ent consult for rash. I discussed results with patient. Biopsy showed healing rash. 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 He notes the rash is improving. For now, no follow-up needed [facility] 10-31-2022 Note Hospital Medicine Discharge Summary Final [...] biliary ductal dilation. Patient was transferred to [facility] for GIevaluation. He was treated [...] stable medical condition. Dear Dr. Michele MD, Dc Crawford is advised to follow up with you [...] 10 mg tablet Commonly known as: Singulair xycyfyuv-aqsryfkjb-FW 3.5-10,000-10 mg-unit-mg/mL ophthalmic suspension Commonly known as: Cortisporin nitroglycerin 400 mcg/spray spray Commonly known as: NitrolinguaL potassium chloride CR 20 mEq ER tablet Commonly known as: Klor-Con M20 tamsulosin 0.4 mg 24 hr capsule Commonly known as: Flomax zolpidem 10 mg tablet Commonly known as: Ambien Where to Get Your Medications These medications were sent to [facility] - [place], [place] - [address] [place] [address], [facility] [address] metoprolol succinate XL 50 mg 24 hr tablet Dc Crawford is allergic to tramadol, albuterol, codeine-guaifenesin, ether, levofloxacin, lidocaine, oxycodone hcl, and oxycodone-acetaminophen. [place] [facility] [place] Condition: Stable Code Status: Prior Diagnostic [...] U/L 231* 2 (more content not included)... [facility] 10-31-2022 Note Hospital Medicine Daily Progress Note - 10/31/2022 3:13 PM; Room: [address] [place] [address] Admission: 10/27/2022 2:17 PM; Length of stay: 1 days THE HOSPITALIST TEAM PREFERS TO USE [employer] CHAT FOR COMMUNICATION 7AM-7PM. IF I DO NOT RESPOND WITHIN 15 MINUTES, PLEASE PAGE ME/CALL THROUGH THE COMMERCIAL ARTIST LETTERING. FROM 7PM-7AM, PLEASE PAGE [phone](COVR) Code Status: Full Code Discharge Destination: home [...] 0.91 10/27/2022 Lab Results Component Value Date [id number] 1,187 (H) 10/27/2022 IRON 85 10/27/2022 TIBC [...] hepatic lesions, however (more content not included)... [facility] 10-31-2022 Note [facility] GI Gastroenterology/Hepatology Progress Note IDENTIFYING [...] biliary ductal dilation. Patient was transferred to [facility] for GI evaluation. Impression: Elevated [...] and intraabdominal adenopathy, pending MRCP completed at [facility] was severely degraded r/t motion artifact, pt states he was not told he was moving and agreeable to remain still during the test Follow up on punch biopsy of rash Patient would like to follow up with a hris manager that is closer to home following discharge for further care of chronic liver disease Medical management per primary The case will be discussed with the attending physician For Questions please contact us at: [facility] GI Service 6am to 4pm weekdays in house Phone: [phone] 4pm to 6am or weekends please contact the dredge lever operator to page the control systems engineer fellow [facility] 10-31-2022 Note This report has been cancelled. [facility] 10-30-2022 Note Hospital Medicine Daily Progress Note - 10/30/2022 10:36 AM; Room: [address] [place] [address] Admission: 10/27/2022 2:17 PM; Length of stay: 0 days THE HOSPITALIST TEAM PREFERS TO USE [employer] CHAT FOR COMMUNICATION 7AM-7PM. IF I DO NOT RESPOND WITHIN 15 MINUTES, PLEASE PAGE ME/CALL THROUGH THE COMMERCIAL ARTIST LETTERING. FROM 7PM-7AM, PLEASE PAGE [phone](COVR) Code Status: Full Code Discharge Destination: home [...] rash has improved in color, now appears clinical nutrition manager. Physical Exam Visit Vitals BP 156/74 [...] to this admissi (more content not included)... [facility] 10-30-2022 Note Subjective Mr. Ty Rasmussen is [...] an eruptive rash several years ago, saw [facility], had a biopsy. Wash told it [...] 150/79 -- -- 74 22 93 % 10/29/22 2018 (!) 149/100 36.7 ???C (98 ???F) Oral [...] is not symptomatic, no concern for Santi Osuna, so will not treat the rash until the pathology results finalize to help guide treatment algorithm. Will sign off until biopsy results finalized and then plan to follow-up with patient as an outpatie (more content not included)... [facility] 10-30-2022 Note Consent for biopsy [facility] 10-30-2022 Note [facility] GI Gastroenterology/Hepatology Progress Note IDENTIFYING [...] biliary ductal dilation. Patient was transferred to [facility] for GI evaluation. Impression: Elevated [...] ultrasound, persistent LFT elevation MRCP completed at [facility] hospital was severely degraded r/t motion artifact, pt states he was not told he was moving and agreeable to remain still during the test Follow up on punch biopsy of rash Medical management per primary The case will be discussed with the attending physician For Questions please contact us at: [facility] GI Service 6am to 4pm weekdays in house Phone: [phone] 4pm to 6am or weekends please contact the dredge lever operator to page the control systems engineer fellow [facility] 10-29-2022 Note Hospital Medicine Daily Progress Note - 10/29/2022 3:49 PM; Room: [address] [place] [address] Admission: 10/27/2022 2:17 PM; Length of stay: 0 days THE HOSPITALIST TEAM PREFERS TO USE [employer] CHAT FOR COMMUNICATION 7AM-7PM. IF I DO NOT RESPOND WITHIN 15 MINUTES, PLEASE PAGE ME/CALL THROUGH THE COMMERCIAL ARTIST LETTERING. FROM 7PM-7AM, PLEASE PAGE [phone](COVR) Code Status: Full Code Discharge Destination: home Discharge plannin/14 Overview Patient is seen for evaluation and management of suspected cholangitis. Nils Dc Rasmussen was seen and examined at bedside. [...] 0.91 10/27/2022 Lab Results Component Value Date [id number] 1,187 (H) 10/27/2022 IRON 85 10/27/2022 TIBC 215 (L) 10/27/2022 Imaging US abdomen limited liver Narrative: US ABDOMEN LIMITED LIVER CLINICAL INFORMATION: Cirrhos (more content not included)... [facility] 10-29-2022 Note [facility] GI Gastroenterology/Hepatology Progress Note IDENTIFYING [...] biliary ductal dilation. Patient was transferred to [facility] for GI evaluation. Impression: Elevated [...] physician For Questions please contact us at: [facility] GI Service 6am to 4pm weekdays in house Phone: [phone] 4pm to 6am or weekends please contact the dredge lever operator to page the control systems engineer fellow [facility] 10-28-2022 Note Hospital Medicine Daily Progress Note - 10/28/2022 5:00 PM; Room: [address] [place] [address] Admission: 10/27/2022 2:17 PM; Length of stay: 1 days THE HOSPITALIST TEAM PREFERS TO USE [employer] CHAT FOR COMMUNICATION 7AM-7PM. IF I DO NOT RESPOND WITHIN 15 MINUTES, PLEASE PAGE ME/CALL THROUGH THE COMMERCIAL ARTIST LETTERING. FROM 7PM-7AM, PLEASE PAGE [phone](COVR) Code Status: Full Code Discharge Destination: home Discharge planning: In 1-2 days Overview Patient is seen for evaluation and management of suspected cholangitis. Nils Dc Rasmussen was seen and examined at bedside. [...] 0.91 10/27/2022 Lab Results Component Value Date [id number] 1,187 (H) 10/27/2022 IRON 85 10/27/2022 TIBC [...] evaluation for foca (more content not included)... 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 Referral Reason Follow up Patient Information Primary Caregiver Self Activities of Daily Living Assistive Device Cane;Other (Comment);Grab bars (rollator, shower chair) Living Arrangement (Current/Prior to Hospitalization) Private residence Ambulation Independent Dressing Independent Feeding Independent Behavior Oriented Communication Talks;Understands speaking Discharge Planning Support Systems Spouse/significant other;Children Type of Residence/Post Acute Needs Private residence;[facility] Patient's goal for discharge home with HHC Does the patient need discharge transport arranged? No () Screened by [facility]. Sent referral to [facility] to check if this is agency uses. Await reply. transports upon DC. [facility] will accept pt. [facility] 10-28-2022 Note Spiritual Care Note Patient name: Dc Rasmussen Age: 87 y.o. Room: [address] [place] [address] 10/28/22 1125 Clinical Encounter Type Visited With Patient;Spouse (Visit [...] Enoch.) Pastoral Intervention Advance directives;Emotional support;Spiritual support;Prayers (Site Inspector reviewed HCPOA and gave pt forms. Spoke outside of room as she just arrived.) Response Appreciative Pastoral Care Notes Advance Directives [facility] 10-28-2022 Note 10/28/22 1235 Admission Assessment Questions [...] Discharge? Yes Does the patient have a test case developer assigned to them through their insurance? Yes Living Arrangement (Current/Prior to Hospitalization) Private residence (lives with ) Does the patient have history of HHC or SNF? Yes (HHC - uses HHC current) Assistive Device Cane;Grab bars (rollator, shower chair) Patient's goal for discharge home with [facility] (patient would like [facility] if able.) Was patient reminded that goal for discharge is 11am? Yes Does the patient have transportation at discharge? Yes () Type of Residence/Post Acute Needs Private residence;[facility] Is PT/OT appropriate? No Is PT/OT ordered? No Is SW consult appropriate? No Is SW consult ordered? No Do you understand the benefits of MyChart? Yes Were you able to send link and activate MyChart? Yes Patient would like [facility] , patient is feeling week and would like motivation for at home, pt.ot is not ordered here, patient uses holland and Rollator now to get around,. Will discuss with Jake BECKER Caring maybe, patient's states cash [facility] 10-27-2022 Note Hospital Medicine History and Physical 10/27/2022 3:53 PM THE HOSPITALIST TEAM PREFERS TO USE [employer] CHAT FOR COMMUNICATION 7AM-7PM. IF I DO NOT RESPOND WITHIN 15 MINUTES, PLEASE PAGE ME/CALL THROUGH THE COMMERCIAL ARTIST LETTERING. 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[facility]) 06/16/2022 Difficulty walking 09/28/2019 Poor diet 09/27/2019 Cardiac tamponade 09/23/2019 Late effect of internal injury to chest 09/23/2019 Basal cell carcinoma of face 05/05/2019 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 Status post percutaneous transluminal coronary angioplasty 01/28/2019 Vasomotor rhinitis 12/20/2018 Chronic cough 12/16/2018 Rhinorrhea 11/30/2018 Abnormal findings on diagnostic imaging of liver and biliary tract 11/10/2018 Fatty liver 11/10/2018 Thoracic aortic aneurysm without rupture ([facility]/HCC) 11/07/2018 Paroxysmal atrial fibrillation ([facility]) 10/11/2018 Pure hypercholesterolemia 10/11/2018 Otitis externa 08/03/2018 Arrhythmia 04/21/2018 Exacerbation of asthma 02/01/2018 Lower urinary tract symptoms due to benign prostatic hyperplasia 06/15/2017 Hypertensive heart disease with congestive heart failure ([facility]) 04/14/2017 Cervical spondylosis without myelopathy 03/12/2017 Pharyngeal abscess 08/07/2016 Eosinophilia 08/07/2016 Abnormal tomography of chest 06/18/2016 Localized edema 05/08/2016 Peripheral venous insufficiency 05/08/2016 Mucopurulent chronic bronchitis ([facility]) 04/29/2016 Benign prostatic hyperplasia 03/20/2016 Chronic obstructive pulmonary disease ([facility]) 03/20/2016 Hyperlipidemia 03/20/2016 Hypokalemia 03/20/2016 Ventricular premature beats 03/20/2016 Allergic rhinitis 03/04/2016 Seizure disorder ([facility]) 03/04/2016 Allergy to soap 02/05/2016 Disorder of lung 02/05/2016 Atherosclerosis of coronary artery without angina pectoris 01/08/2015 Enlarged prostate 01/08/2015 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 Somewhat improving on steroids (more content not included)... [facility] 03-24-2022 Hospital Discharge instructions Patient Education 03/24/2022 [...] urethra. Follow these instructions at home: Take [id number] and prescription medicines only as told by [...] 02/02/2006 Document Revised: 12/28/2018 Document Reviewed: 03/09/2017 [employer] Patient Education 2020 [place]. Follow Up Care 03/14/2022 11:33:52 With:YECENIA KIM, Papa Velarde, URL Address: [address] [place] [phone]- When: Unknown [facility] Evaluation + Plan note No data available for this section [facility] Evaluation + Plan note Future Appointments Appointment Date:05/22/2022 02:30:00 PM Scheduled Provider:ALE FAN PA-C Location:[facility] Appointment Type:URO Office Visit [facility] [employer] Hospital Discharge instructions No data available for this section [facility] Progress note No data available for this section [facility] Summary Purpose Family History No Family History Records FoundNo Family History Records FoundNo Family History Records FoundNo Family History Records FoundNo Family History Records Found No data available for this section No Family History Records FoundNo Family History Records Found Advance Directives No [...] section and content) DATE CREATED AUTHOR 08/12/2017 [facility] DATE CREATED AUTHOR AUTHOR'S ORGANIZ ATION 09/14/[address] [facility] DATE CREATED AUTHOR AUTHOR'S ORGANIZ ATION 04/16/2021 [facility] dical Specialist DATE CREATED AUTHOR AUTHOR'S ORGANIZ ATION 06/29/2022 [facility] DATE CREATED AUTHOR AUTHOR'S ORGANIZ ATION [facility]20[facility] DATE CREATED AUTHOR AUTHOR'S ORGANIZ ATION 07/16/2023 [facility] DATE CREATED AUTHOR AUTHOR'S ORGANIZ ATION 09/10/2023 [facility] dical Specialists EPIC Patient Care team informatio n (unrecognized section and content) Personnel Name: NOLNA BAUTISTA MD Address: Address: [address] [place] [address] Personnel Name: NOLAN BAUTISTA MD Address: Address: [address] [place] [address] Personnel Name: NOLAN BAUTISTA MD Address: Address: [address] [place] [address] FOR RECORDS PERTAINING TO PATIENTS WHO ARE [...] BE BASED ON THE PRIMARY CLINICAL RECORDS. [facility] [employer] [facility]. provides no warranty or guarantee of the accuracy or completeness of information in this document.
--- NOTE | 2023-11-13 14:59 | XR_ITS ---
The [address] [address] Patient Name: DC LUO MRN: [id number] date: 1935 Sex: M Assigned Patient Location: ER Current Patient Location: ER Accession/Order Number: [id number] Exam Date: 11/13/2023 15:04 Report Date: 11/13/2023 15:16 At the request of: GEORGIA REED Procedure: XR chest 1V EXAMINATION: XR chest 1V HISTORY: Chest pain COMPARISON: XR chest 11/12/2022 FINDINGS: LUNGS: No significant pulmonary parenchymal abnormalities. VASCULATURE: No increased pulmonary vasculature. PLEURA: No pneumothorax, effusion, or pleural thickening. CARDIAC: Prior atrial clip placement. No significant enlargement. MEDIASTINUM: Prior sternotomy. No abnormal widening. BONES: No fracture or visible bone lesion. OTHER: Negative. XR/XR chest 1V IMPRESSION: 1. No acute cardiopulmonary process. Stable chest. Electronically authenticated by: HOWARD REES Date: 11/13/2023 15:16
--- NOTE | 2023-11-13 14:59 | ECG_ITS ---
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
--- NOTE | 2023-11-13 15:00 | ED_ITS ---
HPI - Chest Pain General Chief Complaint: Chest Pain Stated Complaint: CHEST PAIN Time Seen by Provider: 11/13/23 14:46 Source: patient and family Mode of arrival: walk-in Limitations: no limitations History of Present Illness HPI narrative: 88-year-old male presents for chest tightness. He woke up today at 9 AM and had chest pain and tightness and it lasted until 2:00 when he took a nitroglycerin at home and the pain went away but the tightness remained. It is all the way across his chest, bilateral. No trauma or fever or complaints of shortness of breath now. He has a history of heart disease and has 3 stents. The tightness is mild to moderate and continuous. Related Data Home Medications ?Medication ?Instructions ?Recorded ?Confirmed atorvastatin 20 mg tablet 40 mg PO DAILY 10/23/22 11/12/22 cetirizine 10 mg tablet 10 mg PO DAILY 10/23/22 11/12/22 potassium chloride 10 mEq 20 meq PO BID 10/23/22 11/12/22 tablet,extended release acetaminophen 325 mg tablet (Aphen) 650 mg PO Q6H PRN fever or pain 10/24/22 11/12/22 diazepam 5 mg tablet 5 mg PO Q8H PRN anxiety 10/24/22 11/12/22 diphenhydramine HCl 25 mg capsule 25 mg PO DAILY 10/24/22 11/12/22 (Benadryl) tamsulosin 0.4 mg capsule 0.4 mg PO Q24H 10/24/22 11/12/22 zolpidem 10 mg tablet 10 mg PO BEDTIME PRN sleep 10/24/22 11/12/22 ondansetron HCl 4 mg tablet 4 mg PO Q8H PRN nausea and vomiting 10/27/22 11/12/22 ascorbic acid (vitamin C) 1,000 mg 1 g PO DAILY 11/12/22 11/12/22 tablet (C-1000) ipratropium bromide 42 mcg (0.06 2 spray intranasal TID 11/12/22 11/12/22 %) nasal spray montelukast 10 mg tablet 10 mg PO QPM 11/12/22 11/12/22 (Singulair) nitroglycerin 0.4 mg sublingual 0.4 mg sublingual Q5M 11/12/22 11/12/22 tablet pantoprazole 40 mg tablet,delayed 40 mg PO QAM 11/12/22 11/12/22 release (Protonix) vitamin B complex See Rx Instructions .Route .COMPLEX 11/12/22 11/17/22 Previous Rx's ?Medication ?Instructions ?Recorded amiodarone 200 mg tablet 200 mg PO BID #60 tabs 11/17/22 metoprolol succinate 50 mg 100 mg (2 x 50 mg) PO DAILY #0 tabs 11/17/22 tablet,extended release 24 hr Allergies Allergy/AdvReac Type Severity Reaction Status Date / Time lidocaine AdvReac Unknown Verified 11/12/22 09:41 tramadol [From Ultram] AdvReac Unknown Verified 11/12/22 09:41 novacaine AdvReac Unknown Uncoded 11/12/22 09:41 Review of Systems ROS Narrative A ten point review of systems is negative except as noted above. [facility] Medical History Surgical History Family History Mother Family history of CHF (congestive heart failure) Family history of hypertension Family history of myocardial infarction Father Family history of cancer Sister Family history of cancer Social History Within the past year, how often did you have a drink containing alcohol: never Score interpretation: A score less than 4 is consistent with normal alcohol consumption. Smoking status: Former smoker Non-prescribed substance use: denies use Previous occupational history: retired Highest level of school completed/degree received: Associate degree: occupational, technical, vocational program Are you now , , , , never or living with a partner: In a typical week, how many times do you talk on the telephone with family, friends, or neighbors: 3 or more times per week How often do you get together with friends or relatives: 3 or more times per week How often do you attend spiritism or hoahaoism services: 4 or more times per year Little interest or pleasure in doing things: not at all Feeling down, depressed, or hopeless: not at all Feel stressed/tense/nervous/anxious/difficulty sleeping: not at all Do you think of yourself as: straight/heterosexual Gender Identity: male Exam Narrative Exam Narrative: Nurses note and vital signs reviewed and patient is not hypoxic. General: The patient appears well and in no apparent distress. Patient is resting comfortably on cart. Skin: Warm, dry, no pallor noted. There is no rash noted. Head: Normocephalic, atraumatic Eye: Normal conjunctiva, no drainage Ears, Nose, Mouth, and Throat: oral mucosa is moist. Nares patent. Cardiovascular: Regular Rate and Rhythm Respiratory: Patient is in no distress, no accessory muscle use, lungs are clear to auscultation, no wheezing, rales or rhonchi Back: non-tender GI: Soft and nontender Musculoskeletal: The patient has no evidence of calf tenderness, no pitting edema, symmetrical pulses noted bilaterally Neurological: A&O, normal speech Psychiatric: Cooperative Constitutional Vital Signs, click to edit/add: Last Vital Signs Temp 98 F 11/13/23 14:49 Pulse 61 11/13/23 16:10 Resp 15 11/13/23 16:10 BP 124/70 11/13/23 16:00 Pulse Ox 94 L 11/13/23 16:10 O2 Del Method Room Air 11/13/23 14:49 Course Vital Signs Vital signs: Vital Signs Temperature 98 F 11/13/23 14:49 Pulse Rate 71 11/13/23 14:49 Respiratory Rate 18 11/13/23 14:49 Blood Pressure 152/86 H 11/13/23 14:49 Pulse Oximetry 96 11/13/23 14:49 Oxygen Delivery Method Room Air 11/13/23 14:49 Temperature 98 F 11/13/23 14:49 Pulse Rate 61 11/13/23 16:10 Respiratory Rate 15 11/13/23 16:10 Blood Pressure 124/70 11/13/23 16:00 Pulse Oximetry 94 L 11/13/23 16:10 Oxygen Delivery Method Room Air 11/13/23 14:49 MDM - Chest Pain MDM Narrative Medical decision making narrative: The patient presented with chest pain. He had taken a nitro at home and then we gave him another 1 here and his pain seems to have subsided. He states it has been years since he has had pain like this. 2 sets of troponin are negative and EKG shows no acute findings. He will be admitted for observation. Findings are discussed with the patient. Differential Diagnosis Differential diagnosis: Likely pneumothorax, unstable angina pectoris, atypical chest pain, st elevation myocardial infarction, costochondritis and chest pain Lab Data Attestation: I reviewed the patient's lab results. Labs: Lab Results 11/13/23 11/13/23 Range/Units 14:56 16:02 WBC 8.4 (4.0-11.0) 10^3/uL RBC 4.68 L (4.70-6.10) 10^6/uL Hgb 14.3 (14.0-18.0) g/dL Hct 42.7 (42.0-54.0) % MCV 91.2 (80.0-94.0) fL MCH 30.6 (25.9-34.0) pg MCHC 33.5 (29.9-35.2) g/dL RDW 13.7 (11.0-15.0) % Plt Count 241 (150-450) 10^3/uL MPV 10.1 (9.5-13.5) fL Neut % (Auto) 60.6 (43.0-75.0) % Lymph % (Auto) 23.3 (20.5-60.0) % Polk % (Auto) 9.7 (1.7-12.0) % Eos % (Auto) 5.7 (0.9-7.0) % Baso % (Auto) 0.5 (0.2-2.0) % Neut # (Auto) 5.1 (1.4-6.5) 10^3/uL Lymph # (Auto) 2.0 (1.2-3.8) 10^3/uL [place]k # (Auto) 0.8 (0.3-0.8) 10^3/uL Eos # (Auto) 0.5 (0.0-0.7) 10^3/uL Baso # (Auto) 0.0 (0.0-0.1) 10^3/uL Abs Immat Gran (auto) 0.02 (0.00-0.03) 10^3/uL Imm/Tot Granulo (auto) 0.2 (0.0-0.5) % Sodium 136 (136-145) mmol/L Potassium 3.6 (3.5-5.1) mmol/L Chloride 99 (98-107) mmol/L Carbon Dioxide 30.7 (21.0-32.0) mmol/L Anion Gap 9.9 BUN 15.0 (7.0-18.0) mg/dL Creatinine 1.38 H (0.70-1.30) mg/dL Est GFR ( Amer) 59 L (>=60) Est GFR (Non-Af Amer) 49 L (>=60) BUN/Creatinine Ratio 10.9 Glucose 112 H (74-106) mg/dL Calcium 9.1 (8.5-10.1) mg/dL Troponin I High Sens <4.0 L <4.0 L (4.0-76.1) pg/mL Imaging Data Chest x-ray: Radiologist's impression: ITS Impressions Chest X-Ray 11/13/23 14:59 IMPRESSION: 1. No acute cardiopulmonary process. Stable chest. Electronically authenticated by: HOWARD REES Date: 11/13/2023 15:16 ECG Data Attestation: I personally reviewed and interpreted this ECG as follows: (EKG on my interpretation shows normal sinus rhythm with no acute change and first- degree block. Rate is 70.) Heart Score History: Highly Suspicious ECG: Normal Age: >65 years Risk Factors: >3 Risk Factors/ HX of CAD:2 Troponin: <Normal Limit Total Heart Score Recommendations & Risks:: 6 Discharge Plan Discharge Chief Complaint: Chest Pain Clinical Impression: Chest pain Patient Disposition: Admitted as Observation Time of Disposition Decision: 16:40 Condition: Good
[2023-11-13 15:07] LABS: Basophils Percent Auto 0.5 % (0.2-2.0); Eosinophils Absolute Auto 0.5 10^3/uL (0.0-0.7); Eosinophils Percent Auto 5.7 % (0.9-7.0); Hematocrit 42.7 % (42.0-54.0); Hemoglobin 14.3 g/dL (14.0-18.0); Immature Granulocytes Abs Auto 0.02 10^3/uL (0.00-0.03); Immature Granulocytes Pct Auto 0.2 % (0.0-0.5); Lymphocytes Percent Auto 23.3 % (20.5-60.0); Mean Corpuscular HGB Conc 33.5 g/dL (29.9-35.2); Mean Corpuscular Hemoglobin 30.6 pg (25.9-34.0); Mean Corpuscular Volume 91.2 fL (80.0-94.0); Mean Platelet Volume 10.1 fL (9.5-13.5); Monocytes Absolute Auto 0.8 10^3/uL (0.3-0.8); Monocytes Percent Auto 9.7 % (1.7-12.0); Neutrophils Absolute Auto 5.1 10^3/uL (1.4-6.5); Neutrophils Percent Auto 60.6 % (43.0-75.0); Platelet Count 241 10^3/uL (150-450); Red Blood Count 4.68 10^6/uL (4.70-6.10); Red Cell Distribution Width 13.7 % (11.0-15.0); White Blood Count 8.4 10^3/uL (4.0-11.0)
[2023-11-13] MEDS: NITROGLYCERIN 0.4 MG BOTTLE SL (15:08)
[2023-11-13 15:30] LABS: Anion Gap 9.9; BUN Creatinine Ratio 10.9; Calcium 9.1 mg/dL (8.5-10.1); Carbon Dioxide 30.7 mmol/L (21.0-32.0); Chloride 99 mmol/L (98-107); Estimated GFR (African America 59 (>=60); Estimated GFR (Non-African Ame 49 (>=60); Glucose 112 mg/dL (74-106); Potassium 3.6 mmol/L (3.5-5.1); Sodium 136 mmol/L (136-145); Troponin I High Sensitivity <4.0 pg/mL (4.0-76.1)
[2023-11-13 16:32] LABS: Troponin I High Sensitivity <4.0 pg/mL (4.0-76.1)
--- OUTSIDE RECORDS SUMMARY | 2023-11-13 17:41 | XMS_ITS | CCD ---
Author Organization [facility] Inform ion Partnership [facility] Care Team Providers Care Licensed Dispensing Optician Name Role Phone JOSE TRINH Unavailable Unavailable NOLAN BAUTISTA II Unavailable Unavailable NOLAN BAUTISTA Primary Care Physician [phone] MICHELE, DR BANKS Admitting Unavailable BAUTISTA, DR [...] 7 Paranoid disorder (disorder) [facility] (1 source) Acetaminophen / oxyCODONE Drug Allergy 3 [facility] (2 sources) Albuterol; Translations: [ALBUTEROL] Drug Allergy 3 [facility] (1 source) formoterol Drug Allergy [facility] (1 source) levoFLOXacin Drug Allergy 6 [facility] (2 sources) Lidocaine; Translations: [LIDOCAINE] Drug Allergy 3 [facility] (1 source) oxyCODONE Drug Allergy [facility] (1 source) traMADol Drug Allergy 3 [facility] (2 sources) Ether; Translations: [ETHER] Drug allergy (disorder) 0 [facility] (1 source) Acetaminophen / oxyCODONE; Translations: [OXYCODONE-ACETAM INOPHEN] Drug Allergy 7 [facility] Rep[facility] (1 source) Codeine / guaiFENesin; Translations: [CODEINE-GUAIFENE SIN] Drug Allergy 1 [facility] (1 source) levoFLOXacin; Translations: [LEVOFLOXACIN] Drug Allergy 1 [facility] (1 source) oxyCODONE; Translations: [OXYCODONE HCL] Drug Allergy 1 [facility] Repository Medications Current Medications Medication Drug Class(es) [...] afterwards, # 2 tab(s), Refills(s) 0, Pharmacy: [id number], 188, cm, 03/05/22 14:43:00 EST, Height/Length [...] (3 sources) Anticholinergic Start: 03-05-2022 Atrovent 0.03% [place] 2 spray(s), Nasal, TID, 30 mL Start [...] Vasodilator Start: 03-05-2022 nitroglycerin 0.[address] mg spray(s), SubLingual, q5min Start Date: 03/05/22 Status: Ordered pantoprazole 40 mg delayed release oral tablet (3 sources) Proton Pump Inhibitor Start: 03-05-2022 take 1 mg by mouth once daily Protonix 40 mg Tab-DR mg tab(s), Oral, Daily Start Date: 03/05/22 Status: Ordered Potassium Chloride (3 sources) Start: 03-05-2022 Potassium Chloride (Yzp-Hgdz-Jmz 10) mEq, Oral, BID Start Date: 03/05/22 [...] Range Facility Office Visiton 07-15-2023 Follow-up visit [id number] Doreen Rasmussenyolanda od L 1935 M Date Provider Department Center 07/15/2023 Xi-SANJAY HECTOR [facility] No family history on file Level of Service:91823 MO OFFICE/OUTPATIENT ESTABLISHED MOD MDM 30 MIN Normal [facility] Office Visiton 01-06-2023 Follow-up visit [id number] Doreen Rasmussenyolanda od L 1935 M Date Provider Department Center 01/06/2023 [id number] SULLIVAN [facility] No family history on file Level of Service:47731 MO OFFICE/OUTPATIENT ESTABLISHED MOD MDM 30-39 MIN Normal [facility] Office Visiton 11-21-2022 Follow-up visit [id number] Etelvina Rasmussenradha od L 1935 M Date Provider Department Center 11/21/2022 [id number] TYSON ZHEN [facility] No family history on file Level of Service:52973 MO OFFICE/OUTPATIENT ESTABLISHED MOD MDM 30-39 MIN [facility] 30on 10-31-2022 30 Spoke with patient, patient is making PCP appointment and Patient would like to follow up with a oil dispenser that is closer to home, patient stated he is going to get his PCP to set him up with GI MD to follow up with, patient verbalizes understanding of these appointments and need to establish soon. Patient is going home with [facility]. AVS and DC order faxed through care port to [facility] 30 Daily Case Managemen t Update Multidisciplinary rounds have been completed. Barriers to Discharge: pending MRCP results and GI recs, home with [facility] on DC Diet: Dietary Orders (From admission, [...] Therapy Types of Home Health Service needed Mcfp Please indicate your approval for this care by adding your name here: COOPERVICTORINO ESTEBAN 10/28/22 1451 [facility] 30 The patient is Moderately Stable - [...] facility with appropriate resources Outcome: Progressing Normal [facility] BASIC METABOLIC PANELon 09- Anion gap [Moles/Vol] 10 mmol/L Normal 7-20 [facility] Comment on above: Performed By: #### L [id number] #### [facility] ([facility]) [address] [place] [address] Calcium [Mass/Vol] 8.3 mg/dL Low 8.6-10.3 [facility] Comment on above: Performed By: #### L [id number] #### [facility] ([facility]) [address] [place] [address] Chloride [Moles/Vol] 106 mmol/L Normal 98-107 [facility] Comment on above: Performed By: #### L [id number] #### [facility] ([facility]) [address] [place] [address] CO2 [Moles/Vol] 25 mmol/L Normal 21-31 [facility] Comment on above: Performed By: #### L [id number] #### [facility] ([facility]) [address] [place] [address] Creatinine [Mass/Vol] 0.95 mg/dL Normal 0.70-1.30 [facility] Comment on above: Performed By: #### L [id number] #### [facility] ([facility]) [address] [place] [address] GLOMERULAR FILTRATION RATE ML/MIN/1.73 SQ M.PREDICTED 78.4 mL/min/1.73m*2 Normal >60.0 [facility] Comment on above: Result Comment: The [facility]???s estimated glomerular filtration rate (eGFR) will no [...] individuals. Performed By: #### L [id number] #### [facility] ([facility]) [address] [place] [address] Glucose [Mass/Vol] 84 mg/dL Normal 70-100 [facility] Comment on above: Performed By: #### L [id number] #### [facility] ([facility]) [address] [place] [address] Potassium [Moles/Vol] 3.7 mmol/L Normal 3.5-5.1 [facility] Comment on above: Performed By: #### L [id number] #### [facility] ([facility]) [address] [place] [address] Sodium [Moles/Vol] 137 mmol/L Normal 136-145 [facility] Comment on above: Performed By: #### L [id number] #### [facility] ([facility]) [address] [place] [address] Urea nitrogen [Mass/Vol] 16 mg/dL Normal 7-25 [facility] Comment on above: Performed By: #### L [id number] #### [facility] ([facility]) [address] [place] [address] UREA NITROGEN/CREATININE (MASS RATIO) IN SER/PLAS 16.8 Normal [facility] Comment on above: Performed By: #### L [id number] #### [facility] ([facility]) [address] [place] [address] CBC WITH AUTO DIFFERENTIALon 10-31-2022 Basophils (Bld) [#/Vol] 0.08 10*3/uL Normal 0.00-0.20 [facility] Comment on above: Performed By: #### L [id number] #### [facility] ([facility]) [address] [place] [address] Basophils/100 WBC (Bld) 0.6 % Normal 0.0-1.0 [facility] Comment on above: Performed By: #### L [id number] #### [facility] ([facility]) [address] [place] [address] Eosinophils (Bld) [#/Vol] 0.78 10*3/uL High 0.00-0.50 [facility] Comment on above: Performed By: #### L [id number] #### [facility] ([facility]) [address] [place] [address] Eosinophils/100 WBC (Bld) 6.1 % High 0.0-6.0 [facility] Comment on above: Performed By: #### L [id number] #### [facility] ([facility]) [address] [place] [address] Erythrocyte distribution width (RBC) [Ratio] 15.9 % High 11.5-15.0 [facility] Comment on above: Performed By: #### L [id number] #### [facility] ([facility]) [address] [place] [address] ERYTHROCYTE MEAN CORPUSCULAR HEMOGLOBIN CONCENTRATION (G/DL) BY AUTOMATED 34.0 g/dL Normal 32.0-35.0 [facility] Comment on above: Performed By: #### L [id number] #### [facility] ([facility]) [address] [place] [address] Hematocrit (Bld) [Volume fraction] 36.5 % Low 39.0-55.0 [facility] Comment on above: Performed By: #### L [id number] #### [facility] ([facility]) [address] [place] [address] Hemoglobin (Bld) [Mass/Vol] 12.4 g/dL Low 13.0-17.0 [facility] Comment on above: Performed By: #### L [id number] #### [facility] ([facility]) [address] [place] [address] Immature granulocytes (Bld) [#/Vol] 0.29 10*3/uL High 0.00-0.20 [facility] Comment on above: Performed By: #### L [id number] #### [facility] ([facility]) [address] [place] [address] Immature granulocytes/100 WBC (Bld) 2.3 % High 0.0-1.0 [facility] Comment on above: Performed By: #### L [id number] #### [facility] ([facility]) [address] [place] [address] Lymphocytes (Bld) [#/Vol] 2.09 10*3/uL Normal 1.20-4.00 [facility] Comment on above: Performed By: #### L [id number] #### [facility] ([facility]) [address] [place] [address] Lymphocytes/100 WBC (Bld) 16.3 % Low 20.0-45.0 [facility] Comment on above: Performed By: #### L [id number] #### [facility] ([facility]) [address] [place] [address] MCH (RBC) [Entitic mass] 29.0 pg Normal 27.0-33.0 [facility] Comment on above: Performed By: #### L [id number] #### [facility] ([facility]) [address] [place] [address] MCV (RBC) [Entitic vol] 85.5 fL Normal 82.0-98.0 [facility] Comment on above: Performed By: #### L [id number] #### [facility] ([facility]) [address] [place] [address] Monocytes (Bld) [#/Vol] 0.83 10*3/uL Normal 0.10-1.00 [facility] Comment on above: Performed By: #### L [id number] #### [facility] ([facility]) [address] [place] [address] Monocytes/100 WBC (Bld) 6.5 % Normal 5.0-12.0 [facility] Comment on above: Performed By: #### L [id number] #### [facility] ([facility]) [address] [place] [address] Neutrophils (Bld) [#/Vol] 8.73 10*3/uL High 1.60-7.60 [facility] Comment on above: Performed By: #### L [id number] #### [facility] ([facility]) [address] [place] [address] Neutrophils/100 WBC (Bld) 68.2 % Normal 40.0-72.0 [facility] Comment on above: Performed By: #### L [id number] #### [facility] ([facility]) [address] [place] [address] NRBC (PER 100 WBCS) BY AUTOMATED COUNT 0.0 % Normal 0 [facility] Comment on above: Performed By: #### L [id number] #### [facility] ([facility]) [address] [place] [address] PLATELETS (10*3/UL) IN BLOOD AUTOMATED COUNT 328 10*3/uL Normal 150-400 [facility] Comment on above: Performed By: #### L [id number] #### [facility] ([facility]) [address] [place] [address] RBC (Bld) [#/Vol] 4.27 10*6/uL Normal 4.20-5.70 [facility] Comment on above: Performed By: #### L [id number] #### [facility] ([facility]) [address] [place] [address] WBC (Bld) [#/Vol] 12.80 10*3/uL High 4.00-10.60 [facility] Comment on above: Performed By: #### L [id number] #### [facility] [address] [place] [address] HEPATIC FUNCTION PANELon Albumin [Mass/Vol] 2.7 g/dL Low 3.5-5.7 [facility] Comment on above: Performed By: #### L [id number] #### [facility] ([facility]) [address] [place] [address] ALP [Catalytic activity/Vol] 231 U/L High 34-104 [facility] Comment on above: Performed By: #### L [id number] #### [facility] ([facility]) [address] [place] [address] ALT [Catalytic activity/Vol] 90 U/L High 7-52 [facility] Comment on above: Performed By: #### L [id number] #### [facility] ([facility]) [address] [place] [address] AST [Catalytic activity/Vol] 42 U/L High 13-39 [facility] Comment on above: Performed By: #### L [id number] #### [facility] ([facility]) [address] [place] [address] Bilirubin [Mass/Vol] 0.7 mg/dL Normal 0.3-1.0 [facility] Comment on above: Performed By: #### L [id number] #### [facility] ([facility]) [address] [place] [address] Magnesium [Mass/Vol] 0.2 mg/dL Normal 0-0.2 [facility] Comment on above: Performed By: #### L [id number] #### [facility] ([facility]) [address] [place] [address] Protein [Mass/Vol] 6.8 g/dL Normal 6.0-8.3 [facility] Comment on above: Performed By: #### L [id number] #### [facility] ([facility]) [address] [place] [address] LACTATE DEHYDROGENASEon 10-17 LACTATE DEHYDROGENASE (U/L) IN SER/PLAS BY LAC->PYR RXN 180 U/L Normal 140-271 [facility] Comment on above: Performed By: #### L [id number] #### [facility] ([facility]) [address] [place] [address] ANTI-SMOOTH MUSCLE ANTIBODY TITERon 10-30-2022 SMOOTH MUSCLE AB, IGG TITER 1:160 High <1:20 [facility] Comment on above: Result Comment: INTE RPRETIVE INFORMATION: Smooth Muscle Ab, IgG Titer Less than 1:20 ........ Negative - No antibody detected. 1:20 - 1:80 .......... Weak Positive - Suggest repeat in two to three weeks with fresh specimen. 1:160 or greater ...... Positive - Suggestive of autoimmune hepatitis or chronic active hepatitis. Performed By: [facility] [address] [place] [id number] Mill Tender Warm Up: Sylvester Levine MD, PhD CLIA Number: [id number] Performed By: #### L [id number] #### [facility] ([facility]) [address] [place] [address] ANTI-SMOOTH MUSCLE ANTIBODY, IGG WITH REFLEX TO TITERon 10-30-2022 SMOOTH MUSCLE ANTIBODY 90 Units High 0-19 [facility] Comment on above: Result Comment: REFE RENCE [...] suspicion for AIH is strong. Performed By: [facility] [address] [place] [address] Mill Tender Warm Up: Sylvester Levine MD, PhD CLIA Number: [id number] Performed By: #### L [id number] #### [facility] ([facility]) [address] [place] [address] BASIC METABOLIC PANELon 09- Anion gap [Moles/Vol] 9 mmol/L Normal 7-20 [facility] Comment on above: Performed By: #### L [id number] #### [facility] [address] [place] [address] Calcium [Mass/Vol] 8.3 mg/dL Low 8.6-10.3 [facility] Comment on above: Performed By: #### L [id number] #### [facility] ([facility]) [address] [place] [address] Chloride [Moles/Vol] 107 mmol/L Normal 98-107 [facility] Comment on above: Performed By: #### L [id number] #### [facility] ([facility]) [address] [place] [address] CO2 [Moles/Vol] 23 mmol/L Normal 21-31 [facility] Comment on above: Performed By: #### L [id number] #### [facility] ([facility]) [address] [place] [address] Creatinine [Mass/Vol] 0.79 mg/dL Normal 0.70-1.30 [facility] Comment on above: Performed By: #### L [id number] #### [facility] ([facility]) [address] [place] [address] GLOMERULAR FILTRATION RATE ML/MIN/1.73 SQ M.PREDICTED 87.1 mL/min/1.73m*2 Normal >60.0 [facility] Comment on above: Result Comment: [facility]???s estimated glomerular filtration rate (eGFR) will no [...] individuals. Performed By: #### L [id number] #### [facility] ([facility]) [address] [place] [address] Glucose [Mass/Vol] 112 mg/dL High 70-100 [facility] Comment on above: Performed By: #### L [id number] #### [facility] ([facility]) [address] [place] [address] Potassium [Moles/Vol] 4.3 mmol/L Normal 3.5-5.1 [facility] Comment on above: Performed By: #### L [id number] #### [facility] ([facility]) [address] [place] [address] Sodium [Moles/Vol] 135 mmol/L Low 136-145 [facility] Comment on above: Performed By: #### L [id number] #### [facility] ([facility]) [address] [place] [address] Urea nitrogen [Mass/Vol] 14 mg/dL Normal 7-25 [facility] Comment on above: Performed By: #### L [id number] #### [facility] ([facility]) [address] [place] [address] UREA NITROGEN/CREATININE (MASS RATIO) IN SER/PLAS 17.7 Normal [facility] Comment on above: Performed By: #### L [id number] #### [facility] ([facility]) [address] [place] [address] CBCon 10-30-2022 Erythrocyte distribution width (RBC) [Ratio] 15.6 % High 11.5-15.0 [facility] Comment on above: Performed By: #### L [id number] #### [facility] ([facility]) [address] [place] [address] ERYTHROCYTE MEAN CORPUSCULAR HEMOGLOBIN CONCENTRATION (G/DL) BY AUTOMATED 33.7 g/dL Normal 32.0-35.0 [facility] Comment on above: Performed By: #### L [id number] #### [facility] [address] [place] [address] Hematocrit (Bld) [Volume fraction] 35.9 % Low 39.0-55.0 [facility] Comment on above: Performed By: #### L [id number] #### [facility] ([facility]) [address] [place] [address] Hemoglobin (Bld) [Mass/Vol] 12.1 g/dL Low 13.0-17.0 [facility] Comment on above: Performed By: #### L [id number] #### [facility] ([facility]) [address] [place] [address] MCH (RBC) [Entitic mass] 29.0 pg Normal 27.0-33.0 [facility] Comment on above: Performed By: #### L [id number] #### [facility] ([facility]) [address] [place] [address] MCV (RBC) [Entitic vol] 86.1 fL Normal 82.0-98.0 [facility] Comment on above: Performed By: #### L [id number] #### [facility] ([facility]) [address] [place] [address] PLATELETS (10*3/UL) IN BLOOD AUTOMATED COUNT 270 10*3/uL Normal 150-400 [facility] Comment on above: Performed By: #### L [id number] #### [facility] ([facility]) [address] [place] [address] RBC (Bld) [#/Vol] 4.17 10*6/uL Low 4.20-5.70 [facility] Comment on above: Performed By: #### L [id number] #### [facility] ([facility]) [address] [place] [address] WBC (Bld) [#/Vol] 16.02 10*3/uL High 4.00-10.60 [facility] Comment on above: Performed By: #### L [id number] #### [facility] [address] [place] [address] DERMATOPATHOLOGY EXAMon 10-17 LAB AP CASE REPORT Normal [facility] Comment on above: Order Comment: Diffu se erythematous nummular almost purpuric patches (some cindy, most no to minimal blanching) across the abdomen, lower chest, proximal thighs and slightly on proximal arms for 1 month. Few areas on the lower legs and dorsal feet (back mostly spared, not on neck or face). Non pruritic. No new medications Result Comment: Derm atopathology Case: [id number] Authorizing Provider: Beryl Neal MD Collected: 10/30/2022 1055 Ordering Location: [address] Urology Received: 10/31/2022 0752 Pathologist: Gege Lyons MD Specimen: Skin, Chest, left Performed By: #### L [id number] #### [facility] ([facility]) [address] [place] [address] LAB AP CLINICAL INFORMATION Diffuse erythematous nummular almost purpuric patches (some cindy, most no to minimal blanching) across the abdomen, lower chest, proximal thighs and slightly on proximal arms for 1 month. Few areas on the lower legs and dorsal feet (back mostly spared, not on neck or face). Non pruritic. No new medications Normal [facility] Comment on above: Order Comment: Diffu se erythematous nummular almost purpuric patches (some cindy, most no to minimal blanching) across the abdomen, lower chest, proximal thighs and slightly on proximal arms for 1 month. Few areas on the lower legs and dorsal feet (back mostly spared, not on neck or face). Non pruritic. No new medications Performed By: #### L [id number] #### [facility] ([facility]) [address] [place] [address] LAB AP DIAGNOSIS COMMENT The findings are [...] lesion are recommended if clinically warranted. Normal [facility] Comment on above: Order Comment: Diffu se erythematous nummular almost purpuric patches (some cindy, most no to minimal blanching) across the abdomen, lower chest, proximal thighs and slightly on proximal arms for 1 month. Few areas on the lower legs and dorsal feet (back mostly spared, not on neck or face). Non pruritic. No new medications Performed By: #### L [id number] #### [facility] ([facility]) [address] [place] [address] LAB AP GROSS DESCRIPTION A. Skin. Normal [facility] Comment on above: Order Comment: Diffu se [...] Part A is received in formalin labeled [facility] and left chest. It consists of a 0.4 x 0.4 x 0.4 cm unoriented farley skin punch. The epidermis is farley and wrinkled. No lesions are identified. The resection margin is inked green and the specimen is bisected to reveal farley-white homogeneous cut surfaces. The specimen is entirely submitted in 1 cassette. Sadiq Beard, Pathologists' Bearingizer Student Malick Sanchez, Pathologists' Bearingizer Performed By: #### L [id number] #### [facility] ([facility]) [address] [place] [address] LAB AP MICROSCOPIC DESCRIPTION Sections of this punch biopsy of skin demonstrate and unremarkable epidermis except for a couple foci of parakeratosis. In the subjacent dermis, there is a sparse superficial perivascular and interstitial inflammatory infiltrate composed of lymphocytes, plasma cells, and abundant pale pigment-laden macrophages. Normal [facility] Comment on above: Order Comment: Diffu se erythematous nummular almost purpuric patches (some cindy, most no to minimal blanching) across the abdomen, lower chest, proximal thighs and slightly on proximal arms for 1 month. Few areas on the lower legs and dorsal feet (back mostly spared, not on neck or face). Non pruritic. No new medications Performed By: #### L [id number] #### [facility] ([facility]) [address] [facility] [place] [address] LAB AP REPORT FINAL DIAGNOSIS NARRATIVE Normal [facility] Comment on above: Order Comment: Diffu se [...] comment Performed By: #### L [id number] #### [facility] ([facility]) [address] [place] [address] Documentationon 10-30-2022 Documentation [id number] Nabil Rasmussen od L 1935 M Date Provider Department Center 10/30/2022 391-BERYL NEAL [facility] DERM Samuel Heal No family history on file Reason for Visit and Comments: consultation [Other] - rash Normal [facility] HEPATIC FUNCTION PANELon Albumin [Mass/Vol] 2.7 g/dL Low 3.5-5.7 [facility] Comment on above: Performed By: #### L [id number] #### [facility] ([facility]) [address] [place] [address] ALP [Catalytic activity/Vol] 248 U/L High 34-104 [facility] Comment on above: Performed By: #### L [id number] #### [facility] ([facility]) [address] [place] [address] ALT [Catalytic activity/Vol] 115 U/L High 7-52 [facility] Comment on above: Performed By: #### L [id number] #### [facility] ([facility]) [address] [place] [address] AST [Catalytic activity/Vol] 67 U/L High 13-39 [facility] Comment on above: Performed By: #### L [id number] #### [facility] ([facility]) [address] [place] [address] Bilirubin [Mass/Vol] 0.8 mg/dL Normal 0.3-1.0 [facility] Comment on above: Performed By: #### L [id number] #### [facility] ([facility]) [address] [place] [address] Magnesium [Mass/Vol] 0.4 mg/dL High 0-0.2 [facility] Comment on above: Performed By: #### L [id number] #### [facility] ([facility]) [address] [place] [address] Protein [Mass/Vol] 6.7 g/dL Normal 6.0-8.3 [facility] Comment on above: Performed By: #### L [id number] #### [facility] ([facility]) [address] [place] [address] HIV COMBO 4Gon 10-30-2022 HIV COMBO 4G Negative Normal Negative [facility] Comment on above: Performed By: #### L [id number] #### [facility] ([facility]) [address] [place] [address] MR ABDOMEN W AND WO CONTRAST MRCPon [...] pancreatic pathology. Electronically signed: Kai Jacobson. Normal [facility] PROTIME-INRon 10-30-2022 INR IN PPP BY COAGULATION ASSAY 1.20 High 0.90-1.10 [facility] Comment on above: Result Comment: ACCC P [...] 1995;108:231S-246S. Performed By: #### L [id number] #### [facility] [employer] ([employer]) [address] [place] [address] PROTHROMBIN TIME (PT) IN PPP BY COAGULATION ASSAY 15.3 Seconds High 12.3-14.8 [facility] Comment on above: Performed By: #### L [id number] #### [facility] ([facility]) [address] [place] [address] 30on 10-29-2022 30 The patient is Moderately Stable - Low risk of patient condition declining or worsening The patient's goals for the shift include rest The clinical goals for the shift include VSS, rest Normal [facility] 30 Daily Case Managemen t Update Multidisciplinary rounds have been completed. Barriers to Discharge: patient to see Derm tomorrow at 9am, then possible DC tomorrow. Home with Jake Galan [facility] Diet: Dietary Orders (From admission, onward) Start [...] Therapy Types of Home Health Service needed Mcfp Please indicate your approval for this care by adding your name here: COOPERVICTORINO ESTEBAN 10/28/22 1451 Normal [facility] BASIC METABOLIC PANELon 10-17 Anion gap [Moles/Vol] 8 mmol/L Normal 7-20 [facility] Comment on above: Performed By: #### L [id number] #### [facility] ([facility]) [address] [place] [address] Calcium [Mass/Vol] 8.2 mg/dL Low 8.6-10.3 [facility] Comment on above: Performed By: #### L [id number] #### [facility] [address] [place] [address] Chloride [Moles/Vol] 108 mmol/L High 98-107 [facility] Comment on above: Performed By: #### L [id number] #### [facility] ([facility]) [address] [place] [address] CO2 [Moles/Vol] 24 mmol/L Normal 21-31 [facility] Comment on above: Performed By: #### L [id number] #### [facility] ([facility]) [address] [place] [address] Creatinine [Mass/Vol] 0.97 mg/dL Normal 0.70-1.30 [facility] Comment on above: Performed By: #### L [id number] #### [facility] ([facility]) [address] [place] [address] GLOMERULAR FILTRATION RATE ML/MIN/1.73 SQ M.PREDICTED 76.5 mL/min/1.73m*2 Normal >60.0 [facility] Comment on above: Result Comment: The [facility]???s estimated glomerular filtration rate (eGFR) will no [...] individuals. Performed By: #### L [id number] #### [facility] ([facility]) [address] [place] [address] Glucose [Mass/Vol] 91 mg/dL Normal 70-100 [facility] Comment on above: Performed By: #### L [id number] #### [facility] [address] [place] [address] Potassium [Moles/Vol] 3.3 mmol/L Low 3.5-5.1 [facility] Comment on above: Performed By: #### L [id number] #### [facility] ([facility]) [address] [place] [address] Sodium [Moles/Vol] 137 mmol/L Normal 136-145 [facility] Comment on above: Performed By: #### L [id number] #### [facility] ([facility]) [address] [place] [address] Urea nitrogen [Mass/Vol] 14 mg/dL Normal 7-25 [facility] Comment on above: Performed By: #### L [id number] #### [facility] ([facility]ER) [address] [place] [address] UREA NITROGEN/CREATININE (MASS RATIO) IN SER/PLAS 14.4 Normal [facility] Comment on above: Performed By: #### L [id number] #### [facility] ([facility]) [address] [place] [address] CBCon 10-29-2022 Erythrocyte distribution width (RBC) [Ratio] 15.7 % High 11.5-15.0 [facility] Comment on above: Performed By: #### L [id number] #### [facility] ([facility]) [address] [place] [address] ERYTHROCYTE MEAN CORPUSCULAR HEMOGLOBIN CONCENTRATION (G/DL) BY AUTOMATED 35.0 g/dL Normal 32.0-35.0 [facility] Comment on above: Performed By: #### L [id number] #### [facility] ([facility]ER) [address] [place] [address] Hematocrit (Bld) [Volume fraction] 35.4 % Low 39.0-55.0 [facility] Comment on above: Performed By: #### L [id number] #### [facility] ([facility]ER) [address] [place] [address] Hemoglobin (Bld) [Mass/Vol] 12.4 g/dL Low 13.0-17.0 [facility] Comment on above: Performed By: #### L [id number] #### [facility] ([facility]) [address] [place] [address] MCH (RBC) [Entitic mass] 29.6 pg Normal 27.0-33.0 [facility] Comment on above: Performed By: #### L [id number] #### [facility] ([facility]) [address] [place] [address] MCV (RBC) [Entitic vol] 84.5 fL Normal 82.0-98.0 [facility] Comment on above: Performed By: #### L [id number] #### [facility] ([facility]) [address] [place] [address] PLATELETS (10*3/UL) IN BLOOD AUTOMATED COUNT 266 10*3/uL Normal 150-400 [facility] Comment on above: Performed By: #### L [id number] #### [facility] ([facility]) [address] [place] [address] RBC (Bld) [#/Vol] 4.19 10*6/uL Low 4.20-5.70 [facility] Comment on above: Performed By: #### L [id number] #### [facility] ([facility]) [address] [place] [address] WBC (Bld) [#/Vol] 15.59 10*3/uL High 4.00-10.60 [facility] Comment on above: Performed By: #### L [id number] #### [facility] ([facility]) [address] [place] [address] HEPATIC FUNCTION PANELon Albumin [Mass/Vol] 2.7 g/dL Low 3.5-5.7 [facility] Comment on above: Performed By: #### L [id number] #### [facility] ([facility]) [address] [place] [address] ALP [Catalytic activity/Vol] 227 U/L High 34-104 [facility] Comment on above: Performed By: #### L [id number] #### [facility] ([facility]) [address] [place] [address] ALT [Catalytic activity/Vol] 142 U/L High 7-52 [facility] Comment on above: Performed By: #### L [id number] #### [facility] ([facility]) [address] [place] [address] AST [Catalytic activity/Vol] 155 U/L High 13-39 [facility] Comment on above: Performed By: #### L [id number] #### [facility] ([facility]) [address] [place] [address] Bilirubin [Mass/Vol] 1.0 mg/dL Normal 0.3-1.0 [facility] Comment on above: Performed By: #### L [id number] #### [facility] ([facility]) [address] [place] [address] Magnesium [Mass/Vol] 0.5 mg/dL High 0-0.2 [facility] Comment on above: Performed By: #### L [id number] #### [facility] ([facility]) [address] [place] [address] Protein [Mass/Vol] 6.2 g/dL Normal 6.0-8.3 [facility] Comment on above: Performed By: #### L [id number] #### [facility] ([facility]) [address] [place] [address] HEPATITIS A ANTIBODY, IGMon 10-29-2022 HEPATITIS A VIRUS IGM AB PRESENCE IN SER/PLAS Non-Reactive Normal Nonreactive [facility] Comment on above: Performed By: #### L [id number] #### [facility] ([facility]) [address] [place] [address] PROTIME-INRon 10-29-2022 INR IN PPP BY COAGULATION ASSAY 1.34 High 0.90-1.10 [facility] Comment on above: Result Comment: [facility] P RECOMMENDED INR FOR WARFARIN THERAPY [...] 1995;108:231S-246S. Performed By: #### L [id number] #### [facility] ([employer]) [address] [place] [address] PROTHROMBIN TIME (PT) IN PPP BY COAGULATION ASSAY 16.6 Seconds High 12.3-14.8 [facility] Comment on above: Performed By: #### L [id number] #### [facility] ([employer]) [address] [place] [address] 30on 10-28-2022 30 The patient is Moderately Stable - Low risk of patient condition declining or worsening The patient's goals for the shift include sleep The clinical goals for the shift include VSS, Blood cx, safety Normal [facility] 30 The patient is Moderately Stable - Low risk of patient condition declining or worsening The patient's goals for the shift include sleep The clinical goals for the shift include VSS, Blood cx, Normal [facility] 30 The patient is Moderately Stable - Low risk of patient condition declining or worsening The patient's goals for the shift include sleep The clinical goals for the shift include VSS, stable labs and safety Normal [facility] BLOOD CULTUREon 10-28-2022 Bacteria identified Cx Nom (Bld) No growth at 5 days Normal [facility] Comment on above: Performed By: #### L [id number] #### [facility] [address] [place] [address] Order Comment: From a different site than #1. Performed By: #### L [id number] #### [facility] [address] [place] [address] Lab Reportson 10-28-2022 Lab Reports [id number] [id number]: 127 Normal [facility] Lab Reports [id number] 9021 [id number]: 127 Normal [facility] URINALYSIS MICROSCOPIC WITH REFLEX CULTUREon 10-28-2022 CASTS IN URINE Normal [facility] Comment on above: Performed By: #### L [id number] #### [facility] ([facility]) [address] [place] [address] CRYSTALS IN URINE Normal [facility] Comment on above: Performed By: #### L [id number] #### [facility] ([facility]) [address] [place] [address] MUCUS (#/HPF) IN URINE SEDIMENT Occasional Normal None Seen, Occasional, Few [facility] Comment on above: Performed By: #### L [id number] #### [facility] ([facility]) [address] [place] [address] OTHER MICROSCOPIC ELEMENTS Normal [facility] Comment on above: Performed By: #### L [id number] #### [facility] [address] [place] [address] RBC (#/HPF) IN URINE SEDIMENT 0-2 Abnormal None Seen [facility] Comment on above: Performed By: #### L [id number] #### [facility] [address] [place] [address] SQUAMOUS EPITHELIAL CELLS (#/HPF) IN URINE SEDIMENT Few Abnormal None Seen, Occasional [facility] Comment on above: Performed By: #### L [id number] #### [facility] [address] [place] [address] WBC (LEUKOCYTE) (#/HPF) IN URINE SEDIMENT 3-5 Abnormal None Seen [facility] Comment on above: Performed By: #### L [id number] #### [facility] ([facility]) [address] [place] [address] URINALYSIS WITH REFLEX CULTU REon 10-28-2022 BILIRUBIN, TOTAL PRESENCE IN URINE Negative Normal Negative [facility] Comment on above: Performed By: #### L [id number] ####[facility] ([facility])[address] [place] [address] Clarity (U) Clear Normal Clear [facility] Comment on above: Performed By: #### L [id number] ####[facility] ([facility])[address] [place] [address] Color (U) Yellow Normal Yellow [facility] Comment on above: Performed By: #### L [id number] ####[facility] ([facility])[address] [place] [address] Glucose (U) [Mass/Vol] Negative Normal Negative [facility] Comment on above: Performed By: #### L [id number] ####[facility] ([facility])[address] [place] [address] HEMOGLOBIN PRESENCE IN URINE Small Abnormal Negative [facility] Comment on above: Performed By: #### L [id number] ####[facility] ([facility])[address] [place] [address] Ketones Ql (U) Trace Abnormal Negative [facility] Comment on above: Performed By: #### L [id number] ####[facility] ([facility])[address] [place] [address] LEUKOCYTE ESTERASE PRESENCE IN URINE BY TEST STRIP Trace Abnormal Negative [facility] Comment on above: Performed By: #### L [id number] ####[facility] ([facility])[address] [place] [address] NITRITE PRESENCE IN URINE Negative Normal Negative [facility] Comment on above: Performed By: #### L [id number] ####[facility] ([facility])[address] [place] [address] pH (U) 5.0 [pH] Normal 5.0-8.0 [facility] Comment on above: Performed By: #### L [id number] ####[facility] ([facility])[address] [place] [address] Protein (U) [Mass/Vol] 30 mg/dL Abnormal Negative [facility] Comment on above: Performed By: #### L [id number] ####[facility] ([facility])[address] [place] [address] Specific gravity (U) [Rel density] 1.021 High 1.015-1.020 [facility] Comment on above: Performed By: #### L [id number] ####[facility] ([facility])[address] [place] [address] ACETAMINOPHEN LEVELon 2022 ACETAMINOPHEN (UG/ML) IN SER/PLAS <10 Low 10-30 [facility] Comment on above: Performed By: #### L [id number] #### [facility] ([facility]) [address] [place] [address] AFP TUMOR MARKERon ALPHA FETOPROTEIN TUMOR MARKER 2 ng/mL Normal 0-9 [facility] Comment on above: Result Comment: INTE RPRETIVE INFORMATION: Alpha Fetoprotein Tumor Marker The [employer] [place] Access DxI AFP method is used. Results [...] reference intervals for this test in the [facility] ([employer]). Performed By: [facility] [address] [place] [address] [employer] Warm Up: Sylvester Levine MD, PhD CLIA Number: [id number] Performed By: #### L [id number] #### [facility] ([facility]) [address] [place] [address] [id number] 2022 ALPHA-1 ANTITRYPSIN 221 mg/dL High 90-200 [facility] Comment on above: Result Comment: To c onvert to umol/L, multiply mg/dL by 0.185 Performed By: [facility] [address] [id number] [employer] Warm Up: Sylvesetr Levine MD, PhD CLIA Number: [id number] Performed By: #### L [id number] #### [facility] ([facility]) [address] [place] [address] ANAon 10-27-2022 YANI TITER <1:40 Normal <=1:40 [facility] Comment on above: Result Comment: Test performed using ALLY IFA YANI Hep-2 Test, a pre-standardized assay designed for the qualitative and semi-quantitative detection of antinuclear antibodies. Performed By: #### L [id number] #### [facility] ([facility]) [address] [place] [address] ANTI-SMOOTH MUSCLE ANTIBODY TITERon 10-27-2022 SMOOTH MUSCLE AB, IGG TITER 1:40 High <1:20 [facility] Comment on above: Result Comment: INTE RPRETIVE INFORMATION: Smooth Muscle Ab, IgG Titer Less than 1:20 ........ Negative - No antibody detected. 1:20 - 1:80 .......... Weak Positive - Suggest repeat in two to three weeks with fresh specimen. 1:160 or greater ...... Positive - Suggestive of autoimmune hepatitis or chronic active hepatitis. Performed By: [facility] [address] [place] [address] [employer] Warm Up: Sylvester Levine MD, PhD CLIA Number: [id number] Performed By: #### L [id number] #### [facility] ([facility]) [address] [place] [address] ANTI-SMOOTH MUSCLE ANTIBODY, IGG WITH REFLEX TO TITERon 10-27-2022 SMOOTH MUSCLE ANTIBODY 48 Units High 0-19 [facility] Comment on above: Result Comment: REFE RENCE [...] suspicion for AIH is strong. Performed by [facility], [address] [place] [address] [email or web address], Supa Roberts MD, Lab. Director CLIA Number: [id number] Performed By: #### L [id number] #### [facility] ([facility]) [address] [place] [address] BASIC METABOLIC PANELon 10-17 Anion gap [Moles/Vol] 13 mmol/L Normal 7-20 [facility] Comment on above: Performed By: #### L [id number] #### [facility] ([facility]) [address] [place] [address] Calcium [Mass/Vol] 8.5 mg/dL Low 8.6-10.3 [facility] Comment on above: Performed By: #### L [id number] #### [facility] ([facility]) [address] [place] [address] Chloride [Moles/Vol] 109 mmol/L High 98-107 [facility] Comment on above: Performed By: #### L [id number] #### [facility] ([facility]) [address] [place] [address] CO2 [Moles/Vol] 21 mmol/L Normal 21-31 [facility] Comment on above: Performed By: #### L [id number] #### [facility] ([facility]) [address] [place] [address] Creatinine [Mass/Vol] 0.92 mg/dL Normal 0.70-1.30 [facility] Comment on above: Performed By: #### L [id number] #### [facility] ([facility]) [address] [place] [address] GLOMERULAR FILTRATION RATE ML/MIN/1.73 SQ M.PREDICTED 81.5 mL/min/1.73m*2 Normal >60.0 [facility] Comment on above: Result Comment: The [facility]???s estimated glomerular filtration rate (eGFR) will no [...] individuals. Performed By: #### L [id number] #### [facility] ([facility]) [address] [place] [address] Glucose [Mass/Vol] 110 mg/dL High 70-100 [facility] Comment on above: Performed By: #### L [id number] #### [facility] ([facility]) [address] [place] [address] Potassium [Moles/Vol] 3.9 mmol/L Normal 3.5-5.1 [facility] Comment on above: Performed By: #### L [id number] #### [facility] ([facility]) [address] [place] [address] Sodium [Moles/Vol] 139 mmol/L Normal 136-145 [facility] Comment on above: Performed By: #### L [id number] #### [facility] [address] [place] [address] Urea nitrogen [Mass/Vol] 20 mg/dL Normal 7-25 [facility] Comment on above: Performed By: #### L [id number] #### [facility] ([facility]) [address] [place] [address] UREA NITROGEN/CREATININE (MASS RATIO) IN SER/PLAS 21.7 Normal [facility] Comment on above: Performed By: #### L [id number] #### [facility] ([facility]) [address] [place] [address] C-REACTIVE PROTEINon 023 C-REACTIVE PROTEIN, SERUM 7.7 mg/dL High <=0.4 [facility] Comment on above: Result Comment: INTE RPRETIVE INFORMATION: C-Reactive Protein Significantly decreased CRP values may result in specimens from patients treated with carboxypenicillins. Performed By: [facility] [address] [place] [address] [employer] Warm Up: Sylvester Levine MD, PhD CLIA Number: [id number] Performed By: #### L [id number] #### [facility] ([facility]) [address] [place] [address] CBC WITH AUTO DIFFERENTIALon 10-27-2022 Erythrocyte distribution width (RBC) [Ratio] 15.9 % High 11.5-15.0 [facility] Comment on above: Performed By: #### L [id number] #### [facility] ([facility]) [address] [place] [address] ERYTHROCYTE MEAN CORPUSCULAR HEMOGLOBIN CONCENTRATION (G/DL) BY AUTOMATED 33.9 g/dL Normal 32.0-35.0 [facility] Comment on above: Performed By: #### L [id number] #### [facility] ([facility]) [address] [place] [address] Hematocrit (Bld) [Volume fraction] 40.7 % Normal 39.0-55.0 [facility] Comment on above: Performed By: #### L [id number] #### [facility] ([facility]) [address] [place] [address] Hemoglobin (Bld) [Mass/Vol] 13.8 g/dL Normal 13.0-17.0 [facility] Comment on above: Performed By: #### L [id number] #### [facility] ([facility]) [address] [place] [address] MCH (RBC) [Entitic mass] 29.1 pg Normal 27.0-33.0 [facility] Comment on above: Performed By: #### L [id number] #### [facility] ([facility]) [address] [place] [address] MCV (RBC) [Entitic vol] 85.9 fL Normal 82.0-98.0 [facility] Comment on above: Performed By: #### L [id number] #### [facility] ([facility]) [address] [place] [address] NRBC (PER 100 WBCS) BY AUTOMATED COUNT 0.0 % Normal 0 [facility] Comment on above: Performed By: #### L [id number] #### [facility] ([facility]) [address] [place] [address] PLATELETS (10*3/UL) IN BLOOD AUTOMATED COUNT 160 10*3/uL Normal 150-400 [facility] Comment on above: Performed By: #### L [id number] #### [facility] ([facility]) [address] [place] [address] RBC (Bld) [#/Vol] 4.74 10*6/uL Normal 4.20-5.70 [facility] Comment on above: Performed By: #### L [id number] #### [facility] ([facility]) [address] [place] [address] WBC (Bld) [#/Vol] 22.06 10*3/uL High 4.00-10.60 [facility] Comment on above: Performed By: #### L [id number] #### [facility] [address] [place] [address] CONSULTon 10-27-2022 CONSULT ---- -------- Attestation signed by Mary Ellen Sanchez MD at 10/28/2022 3:28 PM I personally saw and examined the patient on the same date of service as fellow. I discussed the findings and therapeutic plan with the fellow. I agree with the documentation, except for any edits/updates below. 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 [facility]. Just arrived as a transfer now. [...] biliary ductal dilation. Patient was transferred to [facility] for GI evaluation. GI HISTORY SUMMARY TABLE Last EGD Last colonoscopy Primary GI physician PAST MEDICAL, SURGICAL, FAMILY, and SOCIAL HISTORY Past Medical History: Diagnosis Date Alcohol abuse, in remission Coronary artery disease GERD (gastroesophageal reflux disease) HLD (hyperlipidemia) Hypertension OR (myocardial infarction) ([facility]) Past Surgical History: Procedure Laterality Date CTA [...] by mouth at bedtime. 03/05/22 Historical Provider, [id number] (Cortisporin) 3.5-10,000-10 mg-unit-mg/mL ophthalmic suspension Administer 4 drops into both eyes every 6 (six) hours. Historical Provider, nitroglycerin (NitrolinguaL) 400 mc (more content not included)... Normal [facility] FERRITINon 10-27-2022 FERRITIN (NG/ML) IN SER/PLAS 211.0 ng/mL Normal 24.0-336.0 [facility] Comment on above: Performed By: #### L [id number] #### [facility] ([facility]) [address] [place] [address] HEPATIC FUNCTION PANELon Albumin [Mass/Vol] 3.1 g/dL Low 3.5-5.7 [facility] Comment on above: Performed By: #### L [id number] #### [facility] ([facility]) [address] [place] [address] ALP [Catalytic activity/Vol] 210 U/L High 34-104 [facility] Comment on above: Performed By: #### L [id number] #### [facility] ([facility]) [address] [place] [address] ALT [Catalytic activity/Vol] 72 U/L High 7-52 [facility] Comment on above: Performed By: #### L [id number] #### [facility] ([facility]) [address] [place] [address] AST [Catalytic activity/Vol] 39 U/L Normal 13-39 [facility] Comment on above: Performed By: #### L [id number] #### [facility] ([facility]) [address] [place] [address] Bilirubin [Mass/Vol] 0.9 mg/dL Normal 0.3-1.0 [facility] Comment on above: Performed By: #### L [id number] #### [facility] ([facility]) [address] [place] [address] Magnesium [Mass/Vol] 0.3 mg/dL High 0-0.2 [facility] Comment on above: Performed By: #### L [id number] #### [facility] ([facility]) [address] [place] [address] Protein [Mass/Vol] 7.2 g/dL Normal 6.0-8.3 [facility] Comment on above: Performed By: #### L [id number] #### [facility] ([facility]) [address] [place] [address] HEPATITIS PANEL, ACUTEon HEPATITIS A VIRUS IGM AB PRESENCE IN SER/PLAS Indeterminate Abnormal Nonreactive [facility] Comment on above: Order Comment: Patie nts with specimens exhibiting indeterminate test results should be retested at approximately one-week intervals. Performed By: #### L [id number] #### [facility] ([facility]) [address] [place] [address] HEPATITIS B VIRUS CORE AB (PRESENCE) IN SER/PLAS BY IMM Non-Reactive Normal Nonreactive [facility] Comment on above: Order Comment: Patie nts with specimens exhibiting indeterminate test results should be retested at approximately one-week intervals. Performed By: #### L [id number] #### [facility] ([facility]) [address] [place] [address] HEPATITIS B VIRUS SURFACE AG PRESENCE IN SERUM Non-Reactive Normal Nonreactive [facility] Comment on above: Order Comment: Patie nts with specimens exhibiting indeterminate test results should be retested at approximately one-week intervals. Performed By: #### L [id number] #### [facility] [address] [place] [address] HEPATITIS C VIRUS AB PRESENCE IN SERUM Non-Reactive Normal Nonreactive [facility] Comment on above: Order Comment: Patie nts with specimens exhibiting indeterminate test results should be retested at approximately one-week intervals. Performed By: #### L [id number] #### [facility] ([facility]) [address] [place] [address] IRON AND TIBCon 10-27-2022 IRON (UG/DL) IN SER/PLAS 85 ug/dL Normal 50-212 [facility] Comment on above: Performed By: #### L [id number] #### [facility] ([facility]) [address] [place] [address] IRON BINDING CAPACITY (UG/DL) IN SER/PLAS 215 ug/dL Low 250-450 [facility] Comment on above: Performed By: #### L [id number] #### [facility] ([facility]) [address] [place] [address] IRON BINDING CAPACITY.UNSATURATE D (UG/DL) IN SER/PLAS 130.0 ug/dL Low 155.0-355.0 [facility] Comment on above: Performed By: #### L [id number] #### [facility] [address] [place] [address] IRON SATURATION (%) IN SER/PLAS 40 % Normal 20-50 [facility] Comment on above: Performed By: #### L [id number] #### [facility] ([facility]) [address] [place] [address] IRON (UG/DL) IN SER/PLAS 105 ug/dL Normal 50-212 [facility] Comment on above: Performed By: #### L [id number] #### [facility] ([facility]) [address] [place] [address] IRON BINDING CAPACITY (UG/DL) IN SER/PLAS 214 ug/dL Low 250-450 [facility] Comment on above: Performed By: #### L [id number] #### [facility] ([facility] [address] [place] [address] IRON BINDING CAPACITY.UNSATURATE D (UG/DL) IN SER/PLAS 109.0 ug/dL Low 155.0-355.0 [facility] Comment on above: Performed By: #### L [id number] #### [facility] ([facility]) [address] [place] [address] IRON SATURATION (%) IN SER/PLAS 49 % Normal 20-50 [facility] Comment on above: Performed By: #### L [id number] #### [facility] ([facility] [address] [place] [address] LACTATE DEHYDROGENASEon 10-17 LACTATE DEHYDROGENASE (U/L) IN SER/PLAS BY LAC->PYR RXN 334 U/L High 140-271 [facility] Comment on above: Performed By: #### L [id number] #### [facility] ([facility] [address] [place] [address] LIVER FIBROSIS CHRONIC VIRAL HEPATITISon 10-27-2022 DOVAM-0-NGIFOKFRTHB IN, FIBROMETER 273 mg/dL Normal 131-293 [facility] Comment on above: Performed By: #### L [id number] #### [facility] ([facility]) [address] [place] [address] ALT [Catalytic activity/Vol] 93 U/L High 5-50 [facility] Comment on above: Performed By: #### L [id number] #### [facility] ([facility]) [address] [place] [address] Amylase [Catalytic activity/Vol] 137 U/L High 7-51 [facility] Comment on above: Performed By: #### L [id number] #### [facility] ([facility]) [address] [place] [address] AST [Catalytic activity/Vol] 45 U/L Normal 9-50 [facility] Comment on above: Performed By: #### L [id number] #### [facility] ([facility]) [address] [place] [address] CIRRHOMETER PATIENT SCORE 0.55 Normal [facility] Comment on above: Performed By: #### L [id number] #### [facility] ([facility]) [address] [place] [address] EER FIBROMETER REPORT See Note Normal [facility] Comment on above: Result Comment: Auth orized individuals can access the [facility] Enhanced Report using the following link: [email or web address] Performed By: #### L [id number] #### [facility] ([facility] [address] [place] [address] FIBROMETER INTERPRETATION See Report Normal [facility] Comment on above: Result Comment: [13] [17] INTERPRETIVE INFORMATION: Fibrometer Interpretation Calculations for the final report are based on accurate data for age, gender, and platelet count. If any of this information needs to be corrected, please contact [facility] Client Services to request a recalculation. Client Services may be contacted at . The [employer] FibroMeter profile serves as a surrogate marker [...] developed and its performance characteristics determined by [facility]. It has not been cleared or approved by the [place] Food and Drug Administration. This test was performed in a CLIA certified laboratory and is intended for clinical purposes. Performed By: [facility] [address] [place] [address] Mill Tender Warm Up: Sylvester Levine MD, PhD CLIA Number: [id number] Performed By: #### L [id number] #### [facility] ([facility]) [address] [place] [address] FIBROMETER PATIENT SCORE 0.93 Normal [facility] Comment on above: Performed By: #### L [id number] #### [facility] ([facility]) [address] [place] [address] FIBROMETER PLATELET COUNT 290 k/uL Normal [facility] Comment on above: Performed By: #### L [id number] #### [facility] ([facility]) [address] [place] [address] FIBROMETER PROTHROMBIN INDEX 62 % Low 90-120 [facility] Comment on above: Performed By: #### L [id number] #### [facility] ([facility]) [address] [place] [address] FIBROSIS METAVIR CLASSIFICATION F4[F3-F4] Normal [facility] Comment on above: Result Comment: INTE RPRETIVE [...] F3 is possible Performed By: #### L [id number] #### [facility] ([facility]) [address] [place] [id number] INFLAMETER METAVIR CLASSIFICATION A1/A2 Normal [facility] Comment on above: Result Comment: INTE RPRETIVE INFORMATION: InflaMeter Metavir Classification InflaMeter (activity score) comments A0/A1 Equal probability between A0 and A1 A1/A2 Equal probability between A1 and A2 A2/A3 Equal probability between A2 and A3 Performed By: #### L [id number] #### [facility] ([facility]) [address] [place] [address] INFLAMETER PATIENT SCORE 0.66 Normal [facility] Comment on above: Performed By: #### L [id number] #### [facility] ([facility]) [address] [place] [address] Urea nitrogen [Mass/Vol] 20 mg/dL Normal 7-20 [facility] Comment on above: Performed By: #### L [id number] #### [facility] ([facility]) [address] [place] [address] MANUAL DIFFERENTIALon 2022 ANISOCYTOSIS PRESENCE IN BLOOD BY LIGHT MICROSCOPY Slight Normal [facility] Comment on above: Performed By: #### L [id number] #### [facility] ([facility]) [address] [place] [address] BASOPHILS (10*3/UL) IN BLOOD BY CALCULATION 0.02 10*3/uL Normal 0.00-0.20 [facility] Comment on above: Performed By: #### L [id number] #### [facility] ([facility]) [address] [place] [address] BASOPHILS/100 LEUKOCYTES IN BLOOD BY AUTOMATED COUNT 0.1 % Normal 0.0-1.0 [facility] Comment on above: Performed By: #### L [id number] #### [facility] ([facility]) [address] [place] [address] CESILIA CELLS PRESENCE IN BLOOD BY LIGHT MICROSCOPY Moderate Normal [facility] Comment on above: Performed By: #### L [id number] #### [facility] ([facility]) [address] [place] [address] EOSINOPHILS (10*3/UL) IN BLOOD BY CALCULATION 0.07 10*3/uL Normal 0.00-0.50 [facility] Comment on above: Performed By: #### L [id number] #### [facility] ([facility]) [address] [place] [address] EOSINOPHILS/100 LEUKOCYTES IN BLOOD BY AUTOMATED COUNT 0.3 % Normal 0.0-6.0 [facility] Comment on above: Performed By: #### L [id number] #### [facility] ([facility]) [address] [place] [address] IMMATURE GRANULOCYTES (10*3/UL) IN BLOOD BY CALCULATION 0.71 10*3/uL High 0.00-0.20 [facility] Comment on above: Performed By: #### L [id number] #### [facility] ([facility]) [address] [place] [address] IMMATURE GRANULOCYTES/100 LEUKOCYTES IN BLOOD BY AUTOMATED COUNT 3.2 % High 0.0-1.0 [facility] Comment on above: Performed By: #### L [id number] #### [facility] ([facility]) [address] [place] [address] LYMPHOCYTES (10*3/UL) IN BLOOD BY CALCULATION 2.29 10*3/uL Normal 1.20-4.00 [facility] Comment on above: Performed By: #### L [id number] #### [facility] ([facility]) [address] [place] [address] LYMPHOCYTES/100 LEUKOCYTES IN BLOOD BY AUTOMATED COUNT 10.4 % Low 20.0-45.0 [facility] Comment on above: Performed By: #### L [id number] #### [facility] ([facility]) [address] [place] [address] MONOCYTES (10*3/UL) IN BLOOD BY CALCUATION 0.93 10*3/uL Normal 0.10-1.00 [facility] Comment on above: Performed By: #### L [id number] #### [facility] ([facility]) [address] [place] [address] MONOCYTES/100 LEUKOCYTES IN BLOOD BY AUTOMATED COUNT 4.2 % Low 5.0-12.0 [facility] Comment on above: Performed By: #### L [id number] #### [facility] ([facility]) [address] [place] [address] NEUTROPHILS (10*3/UL) IN BLOOD BY CALCULATION 18.0 10*3/uL High 1.6-7.6 [facility] Comment on above: Performed By: #### L [id number] #### [facility] ([facility]) [address] [place] [address] NEUTROPHILS/100 LEUKOCYTES IN BLOOD BY AUTOMATED COUNT 81.8 % High 40.0-72.0 [facility] Comment on above: Performed By: #### L [id number] #### [facility] ([facility]) [address] [place] [address] OVALOCYTES PRESENCE IN BLOOD BY LIGHT MICROSCOPY Slight Normal [facility] Comment on above: Performed By: #### L [id number] #### [facility] ([facility]) [address] [place] [address] POIKILOCYTOSIS (PRESENCE) IN BLOOD BY LIGHT MICROSCOPY Moderate Normal [facility] Comment on above: Performed By: #### L [id number] #### [facility] ([facility]) [address] [place] [address] POLYCHROMASIA IN BLOOD BY LIGHT MICROSCOPY Slight Normal [facility] Comment on above: Performed By: #### L [id number] #### [facility] ([facility]) [address] [place] [address] TARGET CELLS IN BLOOD BY LIGHT MICROSCOPY Slight Normal [facility] Comment on above: Performed By: #### L [id number] #### [facility] ([facility]) [address] [place] [address] MITOCHONDRIAL ANTIBODIES, M2 on 10-27-2022 MITOCHONDRIAL M2 ANTIBODY 6.1 Units Normal 0.0-24.9 [facility] Comment on above: Result Comment: REFE RENCE [...] does not rule out PBC. Performed By: [facility] [address] [place] [address] Mill Tender Warm Up: Sylvester Levine MD, PhD CLIA Number: [id number] Performed By: #### L [id number] #### [facility] ([facility]) [address] [place] [address] PATHOLOGY REVIEWon PATHOLOGY REVIEW Reviewed. Normal [facility] Comment on above: Result Comment: Elec tronically signed by Zain Conn MD on 10/28/22 at 8:17 AM. Performed By: #### L [id number] #### [facility] ([facility]) [address] [place] [address] PROTIME-INRon 10-27-2022 INR IN PPP BY COAGULATION ASSAY 1.25 High 0.90-1.10 [facility] Comment on above: Result Comment: [facility] FOR WARFARIN THERAPY [...] 1995;108:231S-246S. Performed By: #### L [id number] #### [facility] ([facility]) [address] [place] [address] PROTHROMBIN TIME (PT) IN PPP BY COAGULATION ASSAY 15.7 Seconds High 12.3-14.8 [facility] Comment on above: Performed By: #### L [id number] #### [facility] ([facility]) [address] [place] [address] RPRon 10-27-2022 REAGIN AB PRESENCE IN SERUM BY RPR Non-Reactive Normal Nonreactive [facility] Comment on above: Performed By: #### L [id number] #### [facility] ([facility]) [address] [place] [address] SEDIMENTATION RATEon 023 SEDIMENTATION RATE, ERYTHROCYTE 60 mm/hr High <=10 [facility] Comment on above: Performed By: #### L [id number] #### [facility] ([facility]) [address] [place] [address] TISSUE TRANSGLUTAMINASE, IGA on 10-27-2022 TISSUE TRANSGLUTAMINASE, IGA 3 U/mL Normal 0-3 [facility] Comment on above: Result Comment: INTE RPRETIVE [...] positive predictive value for disease. Performed By: [facility] [address] [place] [address] Mill Tender Warm Up: Sylvester Levine MD, PhD CLIA Number: [id number] Performed By: #### L [id number] #### [facility] ([facility]) [address] [place] [address] TSH3 REFLEX TO FT4on 023 THYROTROPIN (MIU/L) IN SER/PLAS BY DETECTION LIMIT <= 0.05 MIU/L 0.91 mIU/L Normal 0.34-5.60 [facility] Comment on above: Performed By: #### L [id number] #### [facility] ([facility]) [address] [place] [address] VITAMIN B12on 10-27-2022 Cobalamin (Vitamin B12) [Mass/Vol] 1187 pg/mL High 180-914 [facility] Comment on above: Result Comment: REFE RENCE RANGES: 180-914 pg/mL Normal 145-179 pg/mL Indeterminate <145 pg/mL Deficient Performed By: #### L [id number] #### [facility] ([facility]) [address] [place] [address] ECHOCARDIO M/2D COMPLETEon 0 06-25-2022 ECHOCARDIO M/2D COMPLETE Patient Name Site Name DC RASMUSSEN [facility] Account No Medical Record Number Age Sex Date Time [id number] [facility]:[id number] M 06/25/2022 08:09 At the Request [...] Hector M.D. on 06/25/2022 at 18:[address] [facility] Physician Referralon 023 Physician Referral [id number]: 127 Normal [facility] Ambulatory Visit Summaryon 0 05-22-2022 Ambulatory [...] 40 mg Tab) ipratropium nasal (Atrovent 0.03% Webster) levalbuterol (levalbuterol 1.25 mg/0.5 mL Concentrate) metoprolol (metoprolol 100 mg ER Tab) montelukast (Singulair 10 mg Tab) multivitamin (Vitamin B Complex oral capsule) nitroglycerin (nitroglycerin 0.[address]) pantoprazole (Protonix 40 mg Tab-DR) potassium chloride (Potassium Chloride (Nfx-Msmy-Bxk 10)) tamsulosin (Flomax 0.4 mg Cap) zolpidem [...] ALE FAN PA-C Where: [facility] Patient Educationon 05-23-19 Patient Education Urology Benign [...] Follow these instructions at home: ? Take isyx-qwd-imrhirf and prescription medicines only as told by [...] You d (more content not included)... Normal [facility] Urology Office/Clinic Noteon 05-22-2022 Urology Office/Clinic [...] Contact Information MEGHAN HAWKINS, ALE Reed, URL [address] [place] [address] Additional Instructions: 6 mos no labs Patient [...] 20 mg Tab, Oral, Daily Atrovent 0.03% Webster, 2 spray(s), Nasal, TID Benadryl 25 mg Cap, Oral, q6hr cetirizine 10 mg Tab, Oral, Daily Cipro 500 mg Tab, See Instructions, Not taking diazepam 5 mg Tab, Oral, q8hr Flomax 0.4 mg Cap, Oral, Daily Lasix 40 mg Tab, Oral, Daily levalbuterol 1.25 mg/0.5 mL Concentrate, NEB, TID metoprolol 100 mg ER Tab, Oral, Daily nitroglycerin 0.[address], SubLingual, q5min Potassium Chloride (Xhg-Yebi-Aua 10), Oral, BID Protonix 40 mg Tab-DR, [...] Father. Congenital (more content not included)... Normal [facility] Comment on above: Result Comment: Elec tronically Signed By: MEGHAN HAWKINSALE\.br\Date and Time Signed: 05/22/22 14:54 EDT\.br\Electronically Co-Signed By: Kayli Rodriguez\.br\Date and Time Co-Signed: 05/22/22 14:50 EDT Consent for Procedure/Surger loydn 03-25-2022 Consent for Procedure/Surgery [id number]: 127 Normal [facility] Ambulatory Visit Summaryon 0 03-24-2022 Ambulatory [...] 40 mg Tab) ipratropium nasal (Atrovent 0.03% Webster) levalbuterol (levalbuterol 1.25 mg/0.5 mL Concentrate) metoprolol (metoprolol 100 mg ER Tab) montelukast (Singulair 10 mg Tab) multivitamin (Vitamin B Complex oral capsule) nitroglycerin (nitroglycerin 0.[address]) pantoprazole (Protonix 40 mg Tab-DR) potassium chloride (Potassium Chloride (Jps-Fcyj-Xlx 10)) tamsulosin (Flomax 0.4 mg Cap) zolpidem [...] ALE FAN PA-C Where[facility] Patient Educationon 03-24-19 Patient Education Urology [...] Follow these instructions at home: ? Take vxgb-qah-yswqbpu and prescription medicines only as told by [...] d (more content not included)... Normal [facility] Urology Office/Clinic Noteon 03-24-2022 Urology Office/Clinic Note Chief Complaint Cysto/UD HPI Staff This is a 86 year male here for Cysto/UD. ABX stated History of Present Illness Tests reviewed: none. I have reviewed the previous health record information and history for this patient from [facility] Sanchez. I have reviewed and verified the [...] MD, URL [address] [address]- Additional Instructions: f/u 6 weeks [...] Incomplete edgar (more content not included)... Normal [facility] Comment on above: Result Comment: Elec tronically Signed By: Papa REYNA MD\.br\Date and Time Signed: 03/24/22 07:54 EST\.br\Electronically Co-Signed By: Kayli Rodriguez\.br\Date and Time Co-Signed: 03/24/22 07:48 EST [facility] 03-11-2022 Forms [id number] :127 Normal [facility] Physician Referralon 023 Physician Referral [id number]: 127 Normal [facility] Screenson 03-11-2022 Screens [id number] :127 [facility] Urology Office/Clinic Noteon 03-07-2022 Urology Office/Clinic Note [...] not new. Pt under care of a watch adjuster. FORD, not new, stable. Lasix controls swelling [...] like to proceed w/ Cysto/possible UD. Prefers [facility] office for Cysto. 2. BPH (benign prostatic [...] Urnls Dip Stick Auto w/o Microscopy POC 26074 3. Incomplete bladder emptying (R33.9: Retention of [...] body fro (more content not included)... Normal [facility] Comment on above: Result Comment: Elec tronically Signed By: Akbar Judge\.br\Date and Time Signed: 03/07/22 20:24 EST Ambulatory Visit Summaryon 0 03-05-2022 Ambulatory Visit Summary DC RASMUSSEN :1935 Visit Date:03/05/2022 Ambulatory Visit Instructions Your Diagnosis BPH (benign prostatic hyperplasia) Split urinary stream Tests Performed Urnls Dip Stick Auto w/o Microscopy POC 12834 Your Care Team Attending Physician - Akbar [...] 40 mg Tab) ipratropium nasal (Atrovent 0.03% Webster) levalbuterol (levalbuterol 1.25 mg/0.5 mL Concentrate) metoprolol (metoprolol 100 mg ER Tab) montelukast (Singulair 10 mg Tab) multivitamin (Vitamin B Complex oral capsule) nitroglycerin (nitroglycerin 0.[address]) pantoprazole (Protonix 40 mg Tab-DR) potassium chloride (Potassium Chloride (Iax-Uzeo-Evt 10)) tamsulosin (Flomax 0.4 mg Cap) zolpidem [...] Every day Unchanged ipratropium nasal (Atrovent 0.03% Webster) 2 Sprays Nasal Inhalation 3 times a day Unchanged levalbuterol (levalbuterol 1.25 mg/ 0.5 mL Concentrate) Nebulized inhalation (aerosol) 3 times a day Unchanged metoprolol (metoprolol 100 mg ER Tab) By Mouth Every day Unchanged montelukast (Singulair 10 mg Tab) By Mouth Every day Unchanged multivitamin (Vitamin B Complex oral capsule) By Mouth Every day Unchanged nitroglycerin (nitroglycerin 0.[address]) Sublingual Every 5 minutes Unchanged pantoprazole (Protonix 40 mg Tab-DR) By Mouth Every day Unchanged potassium chloride (Potassium Chloride (Dwl-Blsl-Zjz 10)) By Mouth 2 times a day Unchanged tamsulosin (Flomax 0.4 mg Cap) By Mouth Every day Unchanged zolpidem (Ambien 10 mg Tab) 1 Tablets By Mouth Once a day (at bedtime) as needed for for sleep Test Results Urnls Dip Stick Auto w/o Microscopy POC 36231 (03/05/2022) Bilirubin Urine Dipstick - Negative Blood Urine Dipstick - Negative Glucose Urine Dipstick - Negative Ketones Urine Dipstick - Negative Leukocytes Urine Dipstick - 1+ Small Nitrite Urine Dipstick - Negative Protein Urine Dipstick - Negative Specific [place] Urine Dipstick - 1.025 Urine Appearance Urine [...] receiving treatment for. Angina at rest Normal [facility] Covid-19 PCR (CVDTB)on 10-18 SARS-CoV-2 (COVID-19) RNA KAY+probe Ql (Unsp spec) Detected Critically abnormal NOT DETECTED [facility] Comment on above: Result Comment: This test is not yet approved or cleared by the [place] FDA. When there are no FDA-approved or cleared tests available, and other criteria are met, FDA can make tests available under an emergency access mechanism called an Emergency Use Authorization (EUA). The EUA for this test is supported by the Preschool Teacher'S Assistant of Health and Human Service's (HHS's) declaration [...] used). Performed By: #### C VDTB #### [facility] [address] [place], [place] [address] Dr. Venkat Scott [facility] Metabolic Pane [facility] 04-15-2021 Albumin [Mass/Vol] 4.5 g/dL Normal 3.6-5.1 Jermain mario [place] [employer] Supervisor Comment on above: Performed By: #### C MP, LIPD, TSH reflex FT4 #### [facility] [address] [place], [place] [id number] Albumin/Globulin [Mass ratio] 2.1 {ratio} Normal 1.0-2.5 [facility] Supervisor Comment on above: Performed By: #### C MP, LIPD, TSH reflex FT4 #### [facility] [address] [place], [place] [id number] ALP [Catalytic activity/Vol] 328 U/L High 40-129 [facility] [place] Comment on above: Performed By: #### C MP, LIPD, TSH reflex FT4 #### [facility] [address] [place], [place] [id number] ALT [Catalytic activity/Vol] 104 U/L High 9-46 [facility] [place] Comment on above: Result Comment: 01/16 Female reference range changed. Performed By: #### C MP, LIPD, TSH reflex FT4 #### [facility] [address] [place], [place] [id number] Anion gap [Moles/Vol] 22 mmol/L High 12-20 [facility] [place] Comment on above: Result Comment: Effe ctive 02/21/2019 reference range changed. Performed By: #### C MP, LIPD, TSH reflex FT4 #### [facility] [address] [place], [place] [id number] AST [Catalytic activity/Vol] 86 U/L High 10-40 [facility] [place] Comment on above: Result Comment: Spec imen is hemolyzed. Results may be affected. Performed By: #### C MP, LIPD, TSH reflex FT4 #### [facility] [address] [place], [place] [id number] Bilirubin [Mass/Vol] 0.46 mg/dL Normal 0.30-1.20 [facility] [place] Comment on above: Performed By: #### C MP, LIPD, TSH reflex FT4 #### [facility] [address] [place], [place] [id number] BUN/CREA 17 Ratio Normal 6-22 [facility] [place] Comment on above: Performed By: #### C MP, LIPD, TSH reflex FT4 #### [facility] [address] [place], [place] [id number] Calcium [Mass/Vol] 9.5 mg/dL Normal 8.6-10.2 [facility] Comment on above: Performed By: #### C MP, LIPD, TSH reflex FT4 #### [facility] [address] [place], [place] [id number] Chloride [Moles/Vol] 106 mmol/L Normal 98-107 [facility] Specialist Comment on above: Performed By: #### C MP, LIPD, TSH reflex FT4 #### [facility] [address] [place], [place] [id number] CO2 [Moles/Vol] 20 mmol/L Normal 20-31 [facility] Comment on above: Performed By: #### C MP, LIPD, TSH reflex FT4 #### [facility] [address] [place], [place] [id number] Creatinine [Mass/Vol] 1.0 mg/dL Normal 0.7-1.4 [facility] Comment on above: Performed By: #### C MP, LIPD, TSH reflex FT4 #### [facility] [address] [place], [place] [id number] eGFRAA 86 mL/min/1.73m2 Normal >60 [facility] Comment on above: Performed By: #### C MP, LIPD, TSH reflex FT4 #### [facility] [address] [place], [place] [id number] eGFRNAA 71 mL/min/1.73m2 Normal >60 [facility] Comment on above: Performed By: #### C MP, LIPD, TSH reflex FT4 #### [facility] [address] [place], [place] [id number] Globulin (S) [Mass/Vol] 2.1 g/dL Normal 1.9-3.7 [facility] Comment on above: Performed By: #### C MP, LIPD, TSH reflex FT4 #### [facility] [address] [place], [place] [id number] Glucose [Mass/Vol] 92 mg/dL Normal 65-99 [facility] Comment on above: Result Comment: For FASTING Glucose --- ADA reference ranges: Normal 65-99 mg/dl Prediabetes 100-125 Diabetes >/= 126 Performed By: #### C MP, LIPD, TSH reflex FT4 #### [facility] [address] [place], [place] [id number] Potassium [Moles/Vol] 5.0 mmol/L Normal 3.5-5.5 [facility] Special[facility] Comment on above: Result Comment: Spec imen is hemolyzed. Results may be affected. Performed By: #### C MP, LIPD, TSH reflex FT4 #### [facility] [address] [place], [place] [id number] Protein [Mass/Vol] 6.6 g/dL Normal 6.1-8.1 [facility] Specialist Comment on above: Performed By: #### C MP, LIPD, TSH reflex FT4 #### [facility] [address] [place], [place] [id number] Sodium [Moles/Vol] 142 mmol/L Normal 135-146 [facility] Super[facility] Comment on above: Performed By: #### C MP, LIPD, TSH reflex FT4 #### [facility] [address] [place], [place] [id number] Urea nitrogen [Mass/Vol] 17 mg/dL Normal 7-25 [facility] Comment on above: Performed By: #### C MP, LIPD, TSH reflex FT4 #### [facility] [address] [place], [place] [id number] Lipid Panelon 04-15-2021 Cholesterol [Mass/Vol] 164 mg/dL Normal 125-200 [facility] Comment on above: Result Comment: Low risk < 200mg/dL Borderline risk 201-239 mg/dl High risk > or equal to 240 Performed By: #### C MP, LIPD, TSH reflex FT4 #### [facility] [address] [place], [place] [id number] Cholesterol in HDL [Mass/Vol] 49 mg/dL Normal >40 [facility] Special[facility] Comment on above: Result Comment: High Cardiovascular Risk HDL <40 mg/dL Low Cardiovascular Risk HDL > or equal to 60 mg/dl Performed By: #### C MP, LIPD, TSH reflex FT4 #### [facility] [address] [place], [place] [id number] Cholesterol in LDL [Mass/Vol] 95 mg/dL Normal [facility] [place] Comment on above: Result Comment: LDL ATP III CLASSIFICATION LDL less than 100 mg/dl Optimal LDL 100-129 mg/dl Near or above optimal LDL 130-159 Borderline high LDL 160-189 High LDL greater than 189 mg/dl Very High Performed By: #### C MP, LIPD, TSH reflex FT4 #### [facility] [address] [place], [place] [id number] Cholesterol in VLDL [Mass/Vol] 20 mg/dL Normal [facility] Super[facility] Comment on above: Performed By: #### C MP, LIPD, TSH reflex FT4 #### [facility] [address] [place], [place] [id number] Cholesterol.total/C holesterol in HDL [Mass ratio] 3 {ratio} Normal [facility] Super[facility] Comment on above: Performed By: #### C MP, LIPD, TSH reflex FT4 #### [facility] [address] [place], [place] [id number] Triglyceride [Mass/Vol] 99 mg/dL Normal 30-150 [facility] Super[facility] Comment on above: Result Comment: TRIG ATPIII CLASSIFICATIONS TRIG less than 150 mg/dl Normal TRIG 150-199 mg/dl Borderline High TRIG 200-500 mg/dl High TRIG greather than 500 mg/dl Very High Performed By: #### C MP, LIPD, TSH reflex FT4 #### [facility] [address] [place] [id number] TSH w/ Reflex to Free T4on 0 04-15-2021 TSH 2.400 uIU/mL Normal 0.400-4.500 [facility] Super[facility] Comment on above: Performed By: #### C MP, LIPD, TSH reflex FT4 #### [facility] [address] [place], [place] [id number] CHEST AND LATERALon 09-26-19 20 CHEST AND LATERAL [facility] Department of Radiology [address] [place] [id number] == Patient Name: DC RASMUSSEN : [...] , , , Ordering Provider - JAUN MYAFIELD MD , PROTOCOL: AP(PA) and Lateral views [...] effusions. Electronically signed: Zain Stanton. Transcribed by: [email or web address], User Resident: Electronically Signed by: ZAIN STANTON @ 09/26/2019 03:09 PM Normal [facility] Comment on above: Order Comment: , , = ========= , Ordering Provider - [facility]UN MAYFIELD MD , [facility] Letter MohanEsthelasonali [facility] Trinh MD [id number] [facility] [address]Lfzm: [phone] Gkyaxm Barry, MD[address] [place] [address] Dr. Oglesby,Thank you for referring Mr. Rasmussen [...] early in 2016.He was seen by a logistics operations director and underwent a skin biopsy and was [...] primary physician, and skinbiopsy results from the logistics operations director.I agree with the current plan to reintroduce medications every 4-6 weeks astolerated and as clinically appropriateI would like to recheck a CBC with differential to see where the eosinophilcount is today. We discussed doing when here at the [facility] but thepatient would like to have [...] Trinh MD?This note was partially generated using [employer] voice recognition system, andthere may be some incorrect words, spellings, and punctuation that were notnoted in checking the note before saving.???Sincerely,Sweta Trinh MD(Signed electronically to expedite processing) Normal [facility] CNCO Letter TextNosonali hoskins Trinh MD [id number] [facility] [address]Hadc: [phone] Frovob 2016Nolan Bautista MD[address] [place] [id number] Bautista,Thank you for referring Mr. Rasmussen [...] early in 2016.He was seen by a logistics operations director and underwent a skin biopsy and was [...] primary physician, and skinbiopsy results from the logistics operations director.I agree with the current plan to reintroduce medications every 4-6 weeks astolerated and as clinically appropriateI would like to recheck a CBC with differential to see where the eosinophilcount is today. We discussed doing when here at the [facility] but thepatient would like to have [...] will follow-up as needed?Jose Trinh MD Normal [facility] CNOVon 09-29-2016 CNOV Office Visit ([facility]) ESTHELA RASMUSSENOOD ([id number]) 1935 MDate Time Provider Department09/29/16 1:30 PM [...] early in 2016.He was seen by a logistics operations director and underwent a skin biopsy and was [...] primary physician, and skinbiopsy results from the logistics operations director.I agree with the current plan to reintroduce medications every 4-6 weeks astolerated and as clinically appropriateI would like to recheck a CBC with differential to see where the eosinophilcount is today. We discussed doing when here at the [facility] but thepatient would like to have [...] Trinh MDThis note was partially generated using [employer] voice recognition system, andthere may be some incorrect words, spellings, and punctuation that were notnoted in checking the note before saving.?Referring Provider: NOLAN BAUTISTA II [[id number]]Allergies As of Date: 09/29/2016 Noted Allergy ReactionALBUTEROL [...] by JOSE TRINH MD on 10/07/16 Normal [facility] PROGRESSon 09-29-2016 PROGRESS HNO ID: [id number]: Jose Reeder: (none)Author Type: PhysicianType: Progress NotesFiled: [...] early in 2016.He was seen by a logistics operations director and underwent a skin biopsy and was [...] primary physician, andskin biopsy results from the logistics operations director.I agree with the current plan to reintroduce medications every 4-6 weeksas tolerated and as clinically appropriateI would like to recheck a CBC with differential to see where theeosinophil count is today. We discussed doing when here at the [facility] but the patient would like to [...] Trinh MDThis note was partially generated using [employer] voice recognition system,and there may be some incorrect words, spellings, and punctuation thatwere not noted in checking the note before saving.? Normal [facility] Vital Signs Date Time Vital Sign Value Performing Clinician Abena bales 03-05-2022 14:39-0500 Blood Pressure Location [facility] 03-05-2022 14:39-0500 Diastolic blood pressure 80 mm[Hg] Akbar [place] [facility] 03-05-2022 14:39-0500 Heart rate 74 /min [facility] 03-05-2022 14:39-0500 Systolic blood pressure 151 mm[Hg] [facility] Encounters Encounter Date Encounter Type Care Provider Facility Start: 09-07-2023 End: 09-07-2023 ambulatory RODRIGUEZ QUINONES Not Available Start: 07-15-2023 End: 07-15-2023 ambulatory [facility] Start: 06-01-2023 End: 06-01-2023 ambulatory NOLAN BAUTISTA Not Available Start: 05-05-2023 End: 05-05-2023 ambulatory VENECIA BROWNLEE Not Available Start: 03-05-2023 ambulatory ALE FAN Facili ty:[facility] Start: 03-05-2023 End: 03-05-2023 Patient encounter procedure ALE FAN [facility] Start: 02-19-2023 End: 02-19-2023 ambulatory NOLAN BAUTISTA Not Available Start: 01-06-2023 End: 01-06-2023 ambulatory [facility] Start: 11-21-2022 End: 11-21-2022 ambulatory [facility] Start: 10-31-2022 Evaluation and management of inpatient DEIDRE ENIX [facility] Start: 10-28-2022 Evaluation and management of inpatient JENN SHANE [facility] Start: 10-28-2022 Evaluation and management of inpatient FABIANO BRODY [facility] Start: 10-28-2022 ambulatory ALE FAN Facility :[facility] Start: 10-27-2022 End: 10-31-2022 Evaluation and management of inpatient BUD HOY [facility] Start: 06-25-2022 End: 06-26-[address] DOCTOR MONTEMAYOR Facility:[facility] Start: 05-22-2022 End: 05-23-2022 ambulatory ALE FAN Facility:[facility] Start: 03-24-2022 End: 03-25-2022 ambulatory Papa REYNA Facility:[facility] Start: 03-24-2022 End: 03-24-2022 Patient encounter procedure Papa REYNA [facility] Start: 03-05-2022 End: 03-06-2022 ambulatory Akbar Ugalde Facility:[facility] Start: 03-05-2022 End: 03-05-2022 Patient encounter procedure Akbar Ugalde [facility] Start: 01-23-2022 ambulatory ALE FAN Facility :[facility] Start: 11-11-2021 End: 11-11-[address] NOLAN BAUTISTA Facility:[facility] Start: 09-29-2016 End: 09-29-2016 Ambulatory JOSE TRINH [facility] Procedures Date Procedure Procedure Detail [...] Provider Gallo avery 02-05-2022 SARS-CoV-2 (COVID-19 ) [id number] ALE FAN [facility] 12-23-2021 influenza virus vaccine, unspecified formulation ALE FAN [facility] 02-11-2021 SARS-CoV-2 (COVID-19 ) mRNA-1273 vaccine ALE FAN [facility] 12-05-2020 influenza virus vaccine, unspecified formulation ALE FAN [facility] 04-10-2020 tetanus toxoid, redu alon diphtheria toxoid, and acellular pertussis vaccine, adsorbed ALE MEGHAN [facility] 04-05-2020 SARS-CoV-2 (COVID-19 ) mRNA-1273 vaccine ALE MEGHAN [facility] 03-05-2020 SARS-CoV-2 (COVID-19 ) mRNA-1273 vaccine ALE MEGHAN [facility] 01-06-2019 influenza virus vaccine, unspecified formulation ALE MEGHAN [facility] 01-21-2018 influenza virus vaccine, unspecified formulation ALE MEGHAN [facility] 11-25-2016 influenza virus vaccine, unspecified formulation ALE MEGHAN [facility] 04-06-2015 pneumococcal conjuga te vaccine, 13 valent ALE MEGHAN [facility] 01-22-2015 influenza virus vaccine, unspecified formulation ALE MEGHAN [facility] 12-21-2006 influenza, whole ALE PE RRY [facility] Payers Date Payer Category Payer Medicare [id number] 1957 [employer] ([employer]VI and others) [id number] 1957 Medicare [id number] 1935 Unknown [id number] 1935 Unknown [id number] 1935 Unknown [id number] 1935 Unknown [id number] 1935 Unknown [id number] 1937 Unknown [id number] 1937 Unknown [id number] 1937 Unknown [id number] [id number] 1937 Unknown [id number] 1935 Unknown [id number] Social History Date Type Detail Facility Start: 03-05-2022 Tobacco smoking status Ex-smoker (fi nding) [facility] Tobacco smoking status Never [facility] Sex Assigned At Male [facility] Functional Status Date Assessment Result Facility 03-24-2022 Functional Status N/A [facility] 03-05-2022 Functional Status N/A [facility] Clinical Notes 03-24-2022 to 07-15-2023 Note Date & Type Note Facility 07-15-2023 Note [place] [facility] - [facility] Subjective Dc Rasmussen is a 88 [...] on 01/09/2020 with chest pain at the [facility] and work-up was negative. His EKG [...] Thyroid: No thyromegaly. (more content not included)... [facility] 01-06-2023 Note Cardiology Clinic No te Subjective [...] sustained abdominal bleeding. He was admitted to [facility]. His aspirin was stopped and then he [...] chest. The pain (more content not included)... [facility] 01-06-2023 Note Patient here for 6 w [place] follow up CAD, PAF, and HFpEF. He [...] All other systems reviewed and are negative. [facility] 11-21-2022 Note Patient here for fol low up TB for afib w/ RVR. He was started on amiodarone. Furosemide was stopped and he is now c/o LE edema. Denies chest pain, SOB, lightheadedness, and palpitations. Review of Systems Cardiovascular: Positive for leg swelling. Respiratory: Positive for cough. Musculoskeletal: Positive for muscle weakness. Neurological: Positive for weakness. All other systems reviewed and are negative. [facility] 11-21-2022 Note Cardiology Clinic No te Subjective [...] sustained abdominal bleeding. He was admitted to [facility]. His aspirin was stopped and then he [...] chest. The pain (more content not included)... [facility] 10-31-2022 Note Please close. Inpati ent consult for rash. I discussed results with patient. Biopsy showed healing rash. 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 He notes the rash is improving. For now, no follow-up needed [facility] 10-31-2022 Note Hospital Medicine Discharge Summary Final [...] biliary ductal dilation. Patient was transferred to [facility] for GIevaluation. He was treated [...] 10 mg tablet Commonly known as: Singulair eajgekxs-kshcrucpi-LH 3.5-10,000-10 mg-unit-mg/mL ophthalmic suspension Commonly known as: Cortisporin nitroglycerin 400 mcg/spray spray Commonly known as: NitrolinguaL potassium chloride CR 20 mEq ER tablet Commonly known as: Klor-Con M20 tamsulosin 0.4 mg 24 hr capsule Commonly known as: Flomax zolpidem 10 mg tablet Commonly known as: Ambien Where to Get Your Medications These medications were sent to [facility] - [place], [place] - [address] [place] [address], [facility] [address] metoprolol succinate XL 50 mg 24 hr tablet Dc Crawford is allergic to tramadol, albuterol, codeine-guaifenesin, ether, levofloxacin, lidocaine, oxycodone hcl, and oxycodone-acetaminophen. Disposition: Home-Health Care [facility] Discharge Condition: Stable Code Status: Prior Diagnostic [...] U/L 231* 2 (more content not included)... [facility] 10-31-2022 Note Hospital Medicine Daily Progress Note - 10/31/2022 3:13 PM; Room: [address] [place] [address] Admission: 10/27/2022 2:17 PM; Length of stay: 1 days THE HOSPITALIST TEAM PREFERS TO USE [employer] CHAT FOR COMMUNICATION 7AM-7PM. IF I DO NOT RESPOND WITHIN 15 MINUTES, PLEASE PAGE ME/CALL THROUGH THE CARTON FILLER. FROM 7PM-7AM, PLEASE PAGE [phone](COVR) Code Status: Full Code Discharge Destination: home [...] 0.91 10/27/2022 Lab Results Component Value Date [id number] 1,187 (H) 10/27/2022 IRON 85 10/27/2022 TIBC [...] hepatic lesions, however (more content not included)... [facility] 10-31-2022 Note [facility] GI Gastroenterology/Hepatology Progress Note IDENTIFYING [...] biliary ductal dilation. Patient was transferred to [facility] for GI evaluation. Impression: Elevated [...] and intraabdominal adenopathy, pending MRCP completed at [facility] was severely degraded r/t motion artifact, pt states he was not told he was moving and agreeable to remain still during the test Follow up on punch biopsy of rash Patient would like to follow up with a oil dispenser that is closer to home following discharge for further care of chronic liver disease Medical management per primary The case will be discussed with the attending physician For Questions please contact us at: [facility] GI Service 6am to 4pm weekdays in house Phone: [phone] 4pm to 6am or weekends please contact the screen printing machine operator to page the absence management consultant fellow [facility] 10-31-2022 Note This report has been cancelled. [facility] 10-30-2022 Note Hospital Medicine Daily Progress Note - 10/30/2022 10:36 AM; Room: [address] [place] [address] Admission: 10/27/2022 2:17 PM; Length of stay: 0 days THE HOSPITALIST TEAM PREFERS TO USE [employer] CHAT FOR COMMUNICATION 7AM-7PM. IF I DO NOT RESPOND WITHIN 15 MINUTES, PLEASE PAGE ME/CALL THROUGH THE CARTON FILLER. FROM 7PM-7AM, PLEASE PAGE [phone](COVR) Code Status: Full Code Discharge Destination: home [...] rash has improved in color, now appears galley cook. Physical Exam Visit Vitals BP 156/74 Pulse [...] to this admissi (more content not included)... [facility] 10-30-2022 Note Subjective Mr. Ty Rasmussen is [...] an eruptive rash several years ago, saw [facility], had a biopsy. Wash told it [...] as an outpatie (more content not included)... [facility] 10-30-2022 Note Consent for biopsy [facility] 10-30-2022 Note [facility] GI Gastroenterology/Hepatology Progress Note IDENTIFYING [...] biliary ductal dilation. Patient was transferred to [facility] for GI evaluation. Impression: Elevated [...] physician For Questions please contact us at: [facility] GI Service 6am to 4pm weekdays in house Phone: [phone] 4pm to 6am or weekends please contact the screen printing machine operator to page the absence management consultant fellow [facility] 10-29-2022 Note Hospital Medicine Daily Progress Note - 10/29/2022 3:49 PM; Room: [address] [place] [address] Admission: 10/27/2022 2:17 PM; Length of stay: 0 days THE HOSPITALIST TEAM PREFERS TO USE [employer] CHAT FOR COMMUNICATION 7AM-7PM. IF I DO NOT RESPOND WITHIN 15 MINUTES, PLEASE PAGE ME/CALL THROUGH THE CARTON FILLER. FROM 7PM-7AM, PLEASE PAGE [phone](COVR) Code Status: Full Code Discharge Destination: home [...] 0.91 10/27/2022 Lab Results Component Value Date [id number] 1,187 (H) 10/27/2022 IRON 85 10/27/2022 TIBC 215 (L) 10/27/2022 Imaging US abdomen limited liver Narrative: US ABDOMEN LIMITED LIVER CLINICAL INFORMATION: Cirrhos (more content not included)... [facility] 10-29-2022 Note [facility] GI Gastroenterology/Hepatology Progress Note IDENTIFYING [...] biliary ductal dilation. Patient was transferred to [facility] for GI evaluation. Impression: Elevated [...] physician For Questions please contact us at: [facility] GI Service 6am to 4pm weekdays in house Phone: [phone] 4pm to 6am or weekends please contact the screen printing machine operator to page the absence management consultant fellow [facility] 10-28-2022 Note Hospital Medicine Daily Progress Note - 10/28/2022 5:00 PM; Room: [address] [place] [address] Admission: 10/27/2022 2:17 PM; Length of stay: 1 days THE HOSPITALIST TEAM PREFERS TO USE [employer] CHAT FOR COMMUNICATION 7AM-7PM. IF I DO NOT RESPOND WITHIN 15 MINUTES, PLEASE PAGE ME/CALL THROUGH THE CARTON FILLER. FROM 7PM-7AM, PLEASE PAGE [phone](COVR) Code Status: Full Code Discharge Destination: home [...] 0.91 10/27/2022 Lab Results Component Value Date [id number] 1,187 (H) 10/27/2022 IRON 85 10/27/2022 TIBC [...] evaluation for foca (more content not included)... [facility] 10-28-2022 Note 10/28/22 1504 Referral Data Referral Source linen room worker Referral Reason Follow up Patient Information Primary Caregiver Self Activities of Daily Living Assistive Device Cane;Other (Comment);Grab bars (rollator, shower chair) Living Arrangement (Current/Prior to Hospitalization) Private residence Ambulation Independent Dressing Independent Feeding Independent Behavior Oriented Communication Talks;Understands speaking Discharge Planning Support Systems Spouse/significant other;Children Type of Residence/Post Acute Needs Private residence;[facility] Patient's goal for discharge home with HHC Does the patient need discharge transport arranged? No () Screened by [facility]. Sent referral to [facility] to check if this is agency uses. Await reply. transports upon DC. [facility] will accept pt. [facility] 10-28-2022 Note Spiritual Care Note Patient name: Dc Rasmussen Age: 87 y.o. Room: [address] [place] [address] 10/28/22 1125 Clinical Encounter Type Visited With [...] Enoch.) Pastoral Intervention Advance directives;Emotional support;Spiritual support;Prayers (Cooking Teacher reviewed HCPOA and gave pt forms. Spoke outside of room as she just arrived.) Response Appreciative Pastoral Care Notes Advance Directives [facility] 10-28-2022 Note 10/28/22 1235 Admission Assessment Questions [...] Discharge? Yes Does the patient have a mattress spring encaser assigned to them through their insurance? Yes Living Arrangement (Current/Prior to Hospitalization) Private residence (lives with ) Does the patient have history of HHC or SNF? Yes (HHC - uses HHC current) Assistive Device Cane;Grab bars (rollator, shower chair) Patient's goal for discharge home with [facility] (patient would like [facility] if able.) Was patient reminded that goal for discharge is 11am? Yes Does the patient have transportation at discharge? Yes () Type of Residence/Post Acute Needs Private residence;[facility] Is PT/OT appropriate? No Is PT/OT ordered? No Is SW consult appropriate? No Is SW consult ordered? No Do you understand the benefits of MyChart? Yes Were you able to send link and activate MyChart? Yes Patient would like [facility] , patient is feeling week and would like motivation for at home, pt.ot is not ordered here, patient uses holland and Rollator now to get around,. Will discuss with Jake BECKER Caring maybe, patient's states cash [facility] 10-27-2022 Note Hospital Medicine History and Physical 10/27/2022 3:53 PM THE HOSPITALIST TEAM PREFERS TO USE [employer] CHAT FOR COMMUNICATION 7AM-7PM. IF I DO NOT RESPOND WITHIN 15 MINUTES, PLEASE PAGE ME/CALL THROUGH THE CARTON FILLER. FROM 7PM-7AM, PLEASE PAGE [phone](COVR) Chief Complaint Multiple History of Present Illness [...] improved in terms of it is getting galley cook. 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 Difficulty walking 09/28/2019 Poor diet 09/27/2019 Cardiac tamponade 09/23/2019 Late effect of internal injury to chest 09/23/2019 Basal cell carcinoma of face 05/05/2019 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 Status post percutaneous transluminal coronary angioplasty 01/28/2019 Vasomotor rhinitis 12/20/2018 Chronic cough 12/16/2018 Rhinorrhea 11/30/2018 Abnormal findings on diagnostic imaging of liver and biliary tract 11/10/2018 Fatty liver 11/10/2018 Thoracic aortic aneurysm without rupture ([facility]/HCC) 11/07/2018 Paroxysmal atrial fibrillation ([facility]) 10/11/2018 Pure hypercholesterolemia 10/11/2018 Otitis externa 08/03/2018 Arrhythmia 04/21/2018 Exacerbation of asthma 02/01/2018 Lower urinary tract symptoms due to benign prostatic hyperplasia 06/15/2017 Hypertensive heart disease with congestive heart failure ([facility]) 04/14/2017 Cervical spondylosis without myelopathy 03/12/2017 Pharyngeal abscess 08/07/2016 Eosinophilia 08/07/2016 Abnormal tomography of chest 06/18/2016 Localized edema 05/08/2016 Peripheral venous insufficiency 05/08/2016 Mucopurulent chronic bronchitis ([facility]) 04/29/2016 Benign prostatic hyperplasia 03/20/2016 Chronic obstructive pulmonary disease ([facility]) 03/20/2016 Hyperlipidemia 03/20/2016 Hypokalemia 03/20/2016 Ventricular premature beats 03/20/2016 Allergic rhinitis 03/04/2016 Seizure disorder ([facility]) 03/04/2016 Allergy to soap 02/05/2016 Disorder of lung 02/05/2016 Atherosclerosis of coronary artery without angina pectoris 01/08/2015 Enlarged prostate 01/08/2015 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 Somewhat improving on steroids (more content not included)... [facility] 03-24-2022 Hospital Discharge instructions Patient Education 03/24/2022 [...] urethra. Follow these instructions at home: Take [id number] and prescription medicines only as told by [...] 02/02/2006 Document Revised: 12/28/2018 Document Reviewed: 03/09/2017 [employer] Patient Education 2020 [employer]. Follow Up Care 03/14/2022 11:33:52 With:YECENIA KIM, Papa Velarde, URL Address: [address] [place] [id number] When: Unknown [facility] Evaluation + Plan note No data available for this section [facility] Evaluation + Plan note Future Appointments Appointment Date:05/22/2022 02:30:00 PM Scheduled Provider:ALE FAN PA-C Location:[facility] Appointment Type:URO Office Visit [facility] Discharge instructions No data available for this section [facility] Progress note No data available for this section [facility] Summary Purpose Family History No Family [...] section and content) DATE CREATED AUTHOR 08/12/2017 [facility] DATE CREATED AUTHOR AUTHOR'S ORGANIZ ATION 09/14/2020 [facility] DATE CREATED AUTHOR AUTHOR'S ORGANIZ ATION 04/16/2021 [facility] dical Specialist DATE CREATED AUTHOR AUTHOR'S ORGANIZ ATION 06/29/2022 [facility] DATE CREATED AUTHOR AUTHOR'S ORGANIZ ATION 11/02/2022 [facility] DATE CREATED AUTHOR AUTHOR'S ORGANIZ ATION 07/16/[address] [facility] DATE CREATED AUTHOR AUTHOR'S ORGANIZ ATION 09/10/2023 [facility] d[facility] Specialists EPIC Patient Care team informatio n (unrecognized section and content) Personnel Name: NOLAN BAUTISTA MD Address: Address: [address] [place] [address] Personnel Name: NOLAN BAUTISTA MD Address: Address: [address] [place] [address] Personnel Name: NOLAN BAUTISTA MD Address: Address: [address] [place] [address] FOR RECORDS PERTAINING TO PATIENTS WHO ARE [...] BE BASED ON THE PRIMARY CLINICAL RECORDS. [facility] [employer] [facility]. provides no warranty or guarantee of the accuracy or completeness of information in this document.
[2023-11-13 20:08] LABS: Troponin I High Sensitivity 4.1 pg/mL (4.0-76.1)
[2023-11-13] MEDS: ENOXAPARIN SODIUM 40 MG/0.4 ML SYRINGE SUBQ (23:13)
[2023-11-13] MEDS: MONTELUKAST SODIUM 10 MG TABLET PO (23:14)
[2023-11-14] VITALS (8 sets, daily range): BP systolic 126–132; BP diastolic 74–80; PULSE 58–83; TEMP 36.4–36.6; O2SAT 93–94
[2023-11-14] MEDS: OMEPRAZOLE 40 MG CAPSULE.DR PO (06:36)
[2023-11-14 06:50] LABS: Basophils Percent Auto 0.5 % (0.2-2.0); Eosinophils Absolute Auto 0.5 10^3/uL (0.0-0.7); Eosinophils Percent Auto 6.7 % (0.9-7.0); Hematocrit 39.7 % (42.0-54.0); Hemoglobin 13.3 g/dL (14.0-18.0); Immature Granulocytes Abs Auto 0.01 10^3/uL (0.00-0.03); Immature Granulocytes Pct Auto 0.1 % (0.0-0.5); Lymphocytes Percent Auto 26.5 % (20.5-60.0); Mean Corpuscular HGB Conc 33.5 g/dL (29.9-35.2); Mean Corpuscular Hemoglobin 30.6 pg (25.9-34.0); Mean Corpuscular Volume 91.3 fL (80.0-94.0); Mean Platelet Volume 10.1 fL (9.5-13.5); Monocytes Absolute Auto 0.7 10^3/uL (0.3-0.8); Neutrophils Absolute Auto 4.2 10^3/uL (1.4-6.5); Neutrophils Percent Auto 56.2 % (43.0-75.0); Platelet Count 226 10^3/uL (150-450); Red Blood Count 4.35 10^6/uL (4.70-6.10); Red Cell Distribution Width 13.7 % (11.0-15.0); White Blood Count 7.4 10^3/uL (4.0-11.0)
[2023-11-14 07:14] LABS: Alanine Aminotransferase 42 U/L (16-63); Albumin Globulin Ratio 0.8; Albumin Level 3.2 g/dL (3.4-5.0); Alkaline Phosphatase 187 U/L (46-116); Anion Gap 7.2; Aspartate Amino Transferase 36 U/L (15-37); Bilirubin Total 0.7 mg/dL (0.2-1.0); Calcium 8.9 mg/dL (8.5-10.1); Carbon Dioxide 32.1 mmol/L (21.0-32.0); Chloride 103 mmol/L (98-107); Estimated GFR (African America >60 (>=60); Estimated GFR (Non-African Ame 51 (>=60); Globulin 4.1 g/dL; Glucose 91 mg/dL (74-106); Potassium 4.3 mmol/L (3.5-5.1); Sodium 138 mmol/L (136-145); Total Protein 7.3 g/dL (6.4-8.2)
[2023-11-14] MEDS: METOPROLOL SUCCINATE 50 MG TAB.ER.24H 100 MG PO (09:15)
[2023-11-14] MEDS: CETIRIZINE HCL 10 MG TABLET PO (09:15)
[2023-11-14] MEDS: ATORVASTATIN CALCIUM 20 MG TABLET 40 MG PO (09:15)
[2023-11-14] MEDS: TAMSULOSIN HCL 0.4 MG CAPSULE PO (09:15)
[2023-11-14] MEDS: ENOXAPARIN SODIUM 40 MG/0.4 ML SYRINGE SUBQ (09:16)
--- NOTE | 2023-11-14 11:08 | P.HP_ITS ---
HPI H&P: HPI History of Present Illness Chief complaint: CHEST PAIN Narrative: HPI and Hospital Course: 88-year-old male with past medical history of coronary artery bypass surgery in 2019 presented to ER with sudden onset midsternal chest pain that he describes as chest tightness that was associated with shortness of breath. He was sleeping when his symptoms started and woke up because of chest tightness/pain. He took sublingual nitro that improved his symptoms but his chest tightness persisted so he came to ER for further evaluation. In ER he was given another dose of sublingual nitro with resolution of his symptoms. He denies cough, fever or any respiratory symptoms suggestive of upper respiratory infection. 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 He has been chest pain-free since then and has not had any cardiac workup done since 2019. He reports being fairly active and denies chest pain, shortness of breath or any symptoms suggestive of underlying active coronary artery disease. His EKG did not show any significant abnormality. His troponins x 3 were negative. He remained chest pain-free during the course of admission. He is medically stable for discharge and was educated on worrisome signs and symptoms that should prompt him to seek emergency care. He can use sublingual nitro as needed for chest pain but if his chest pain persists, he was instructed to come to ER for further evaluation. Patient will benefit from outpatient stress test given his history and presenting symptoms. He was instructed to follow-up with PCP and cardiology as outpatient. Opioid HPI Opioid Management Most Recent Pain and Opioid Data: Last Pain Scale 0 11/14/23 07:38 Last Pain Intensity 0 10/27/22 09:48 Last Pain Assessment 11/14/23 10:00 Last ED Pain Assessment 11/13/23 16:26 Last ORT Total Score 3 11/13/23 17:39 Last ORT Risk Category Low Risk 11/13/23 17:39 Review of Systems ROS Status of ROS 10 or more systems reviewed and unremark able except as noted in history and below [facility] Medical History Surgical History Family History Mother Family history of CHF (congestive heart failure) Family history of hypertension Family history of myocardial infarction Father Family history of cancer Sister Family history of cancer Social History Within the past year, how often did you have a drink containing alcohol: never Score interpretation: A score less than 4 is consistent with normal alcohol consumption. Smoking status: Former smoker Non-prescribed substance use: denies use Previous occupational history: retired Highest level of school completed/degree received: high school graduate Are you now , , , , never or living with a partner: In a typical week, how many times do you talk on the telephone with family, friends, or neighbors: 3 or more times per week How often do you get together with friends or relatives: 3 or more times per week How often do you attend zoroastrian or scientologist services: 4 or more times per year Little interest or pleasure in doing things: not at all Feeling down, depressed, or hopeless: not at all Feel stressed/tense/nervous/anxious/difficulty sleeping: not at all Do you think of yourself as: straight/heterosexual Gender Identity: male Meds Home Medications and Allergies Home Medications ?Medication ?Instructions ?Recorded ?Confirmed ?Type atorvastatin 20 mg tablet 40 mg PO DAILY 10/23/22 11/13/23 History cetirizine 10 mg tablet 10 mg PO DAILY 10/23/22 11/13/23 History potassium chloride 10 mEq 20 meq PO BID 10/23/22 11/13/23 History tablet,extended release acetaminophen 325 mg tablet (Aphen) 650 mg PO Q6H PRN fever or pain 10/24/22 11/13/23 History diazepam 5 mg tablet 5 mg PO Q8H PRN anxiety 10/24/22 11/13/23 History tamsulosin 0.4 mg capsule 0.4 mg PO Q24H 10/24/22 11/13/23 History zolpidem 10 mg tablet 10 mg PO BEDTIME PRN sleep 10/24/22 11/13/23 History ascorbic acid (vitamin C) 1,000 mg 1 g PO DAILY 11/12/22 11/13/23 History tablet (C-1000) montelukast 10 mg tablet 10 mg PO QPM 11/12/22 11/13/23 History (Singulair) nitroglycerin 0.4 mg sublingual 0.4 mg sublingual Q5M 11/12/22 11/13/23 History tablet pantoprazole 40 mg tablet,delayed 40 mg PO QAM 11/12/22 11/13/23 History release (Protonix) vitamin B complex See Rx Instructions .Route .COMPLEX 11/12/22 11/13/23 History metoprolol succinate 50 mg 100 mg (2 x 50 mg) PO DAILY #0 tabs 11/17/22 11/13/23 Rx tablet,extended release 24 hr furosemide 40 mg tablet 40 mg PO .qd 11/13/23 11/13/23 History nitroglycerin 0.4 mg sublingual 0.4 mg sublingual Q5M PRN chest 11/14/23 Rx tablet pain #10 tabs Allergies Allergy/AdvReac Type Severity Reaction Status Date / Time lidocaine AdvReac Unknown Verified 11/12/22 09:41 tramadol [From Ultram] AdvReac Unknown Verified 11/12/22 09:41 novacaine AdvReac Unknown Uncoded 11/12/22 09:41 Exam Constitutional Vital Signs, click to edit/add: Last Vital Signs Temp 97.8 F 11/14/23 07:38 Pulse 83 11/14/23 09:56 Resp 16 11/14/23 07:38 BP 132/80 11/14/23 07:38 Pulse Ox 93 L 11/14/23 07:38 O2 Del Method Room Air 11/14/23 07:38 Documenting provider has reviewed patient's vital signs: yes Common normals: no apparent distress and oriented x3 General appearance: cooperative HENOH Common normals: normocephalic and head/scalp atraumatic Head and scalp: normocephalic and atraumatic Eye Common normals: conjunctivae normal and no scleral icterus Conjunctiva: conjunctiva(e) normal Respiratory Common normals: normal respiratory effort and clear to auscultation bilaterally Effort & inspection: able to speak in complete sentences Auscultation: clear to auscultation bilaterally Cardio Common normals: regular rate, S1 normal heart sound and S2 normal heart sound Rate: regular rate Heart sounds: S1 normal and S2 normal GI Common normals: Normal to inspection, nondistended, normoactive bowel sounds present, soft to palpation, non-tender and no hepatosplenomegaly Palpation: soft and no hepatosplenomegaly Extremity Common normals: no clubbing, cyanosis or edema Neuro Common normals: oriented x3, moves all extremities and no focal motor deficits Psych Common normals: mental status grossly normal, denies hallucinations, denies homicidal ideation and denies suicidal ideation Results Labs Labs: Short CBC 11/13/23 11/14/23 Range/Units 14:56 06:06 WBC 8.4 7.4 (4.0-11.0) 10^3/uL Hgb 14.3 13.3 L (14.0-18.0) g/dL Hct 42.7 39.7 L (42.0-54.0) % Plt Count 241 226 (150-450) 10^3/uL BMP 11/13/23 11/14/23 14:56 06:06 Sodium 136 138 Potassium 3.6 4.3 Chloride 99 103 Carbon Dioxide 30.7 32.1 H BUN 15.0 16.0 Creatinine 1.38 H 1.33 H Glucose 112 H 91 Calcium 9.1 8.9 Liver Function 11/14/23 Range/Units 06:06 Total Bilirubin 0.7 (0.2-1.0) mg/dL AST 36 (15-37) U/L ALT 42 (16-63) U/L Alkaline Phosphatase 187 H (46-116) U/L Albumin 3.2 L (3.4-5.0) g/dL Assessment and Plan Assessment and Plan (1) Chest pain: Assessment and Plan: Chest pain likely secondary to coronary artery disease. No abnormal events on telemetry. No acute finding on EKG. Troponins are negative. He is currently chest pain-free. Discussed with patient and educated on worrisome signs and sym ptoms that should prompt him to seek urgent care at ER. He will be discharged on sublingual nitro that he can use as needed but was instructed to come to ED if his symptoms persist despite using sublingual nitro. Qualifiers: Chest pain type: chest pain due to myocardial ischemia Ischemic chest pain type: stable angina pectoris Qualified Code(s): I20.89 - Other forms of angina pectoris (2) CAD (coronary artery disease): Assessment and Plan: He is currently chest pain-free. Patient is also on aspirin and beta-jaki along with statin. He will benefit from outpatient stress test. Qualifiers: Coronary Disease-Associated Artery/Lesion type: [place] artery [place] vs. transplanted heart: [place] heart Associated angina: with stable angina Qualified Code(s): I25.118 - Atherosclerotic heart disease of [place] coronary artery with other forms of angina pectoris (3) HTN (hypertension): Assessment and Plan: Continue with home medications. Qualifiers: Hypertension type: primary hypertension Qualified Code(s): I10 - Essential (primary) hypertension (4) HLD (hyperlipidemia): Assessment and Plan: Continue with Lipitor. Qualifiers: Hyperlipidemia type: unspecified Qualified Code(s): E78.5 - Hyperlipidemia, unspecified (5) GERD (gastroesophageal reflux disease): Assessment and Plan: Continue with Protonix. His symptoms does not seem to be related to reflux. Qualifiers: Esophagitis presence: without esophagitis Qualified Code(s): K21.9 - Gastro-esophageal reflux disease without esophagitis
--- NOTE | 2023-11-17 15:55 | CM.DCFOLLOWU ---
Person spoke with: patient How are you feeling?well How is your pain?none Did you understand your discharge instructions? yes Do you have any questions about your discharge instructions?no Were you given any prescriptions at discharge?yes Were you able to get your prescriptions filled?yes y Do you understand how to take your medications as ordered?yes Do you have any questions about your follow up appointment and do you plan to keep your follow up appointment?no questions, follow up scheduled with Michele and working on cardiology follow up Is there anything else that you would like to discuss?no Questions/Comments/Concerns/Other:none
== END 2023-11-14 12:18 | disposition home or self-care (01) ==
LOC: ER 17:02 → MS 17:38
PROVIDERS: Admitting Provider Internal Medicine; Emergency Provider Emergency Medicine; PCP Internal Medicine; Visit Provider Internal Medicine
DX: R07.9 Chest pain, unspecified (principal); I25.118 Atherosclerotic heart disease of native coronary artery with other forms of angina pectoris; I10 Essential (primary) hypertension; E78.5 Hyperlipidemia, unspecified; Z79.82 Long term (current) use of aspirin; Z79.899 Other long term (current) drug therapy; K21.9 Gastro-esophageal reflux disease without esophagitis; Z87.891 Personal history of nicotine dependence; Z95.1 Presence of aortocoronary bypass graft
CPT/HCPCS: 36415; 71045; 80048; 80053; 84484; 85025; 93005; 94761; 96372; 99285; G0378; J1650

== ENCOUNTER 2023-11-25 12:55 | Emergency (ER) | payer MEDICARE, OTHER, SELFPAY ==
[2023-11-25] VITALS (19 sets, daily range): BP systolic 121–157; BP diastolic 66–84; PULSE 61–74; TEMP 36.5; O2SAT 94–99; BMI 25.3
--- NOTE | 2023-11-25 13:18 | ECG_ITS ---
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
--- NOTE | 2023-11-25 13:19 | ED.GENADUL1 ---
HPI HPI - General Adult General Chief complaint: Chest Pain Stated complaint: CHEST PAIN Time Seen by Provider: 11/25/23 13:11 Source: patient Mode of arrival: walk-in Limitations: no limitations History of Present Illness HPI narrative: Patient is an 88-year-old male with a history of coronary artery disease, stents x 3 who presents to the emergency department for intermittent chest pain. Patient states he has been having increasing chest discomfort and had sharp chest pain retrosternal that he describes as burning yesterday. He has no focal medical complaints at this time. He was referred over from his primary care provider office and was told that he probably had a heart attack and had EKG changes from a previous admission to this hospital. He has had no other recent illness, fevers, cough or congestion. He was told that he needed to come to the ER for evaluation, no pedal edema. No vomiting or diarrhea. He apparently was going to have a Watchman procedure in 2019, his stents were evaluated by cardiac catheterization at that time however the surgeon poked a hole in the heart and he was converted to an open procedure. He has not had any cardiac catheterization or other heart procedure since that time. Related Data Home Medications ?Medication ?Instructions ?Recorded ?Confirmed atorvastatin 20 mg tablet 40 mg PO DAILY 10/23/22 11/25/23 cetirizine 10 mg tablet 10 mg PO DAILY 10/23/22 11/25/23 potassium chloride 10 mEq 20 meq PO BID 10/23/22 11/25/23 tablet,extended release acetaminophen 325 mg tablet (Aphen) 650 mg PO Q6H PRN fever or pain 10/24/22 11/25/23 diazepam 5 mg tablet 5 mg PO Q8H PRN anxiety 10/24/22 11/25/23 tamsulosin 0.4 mg capsule 0.4 mg PO Q24H 10/24/22 11/25/23 zolpidem 10 mg tablet 10 mg PO BEDTIME PRN sleep 10/24/22 11/25/23 ascorbic acid (vitamin C) 1,000 mg 1 g PO DAILY 11/12/22 11/25/23 tablet (C-1000) montelukast 10 mg tablet 10 mg PO QPM 11/12/22 11/25/23 (Singulair) pantoprazole 40 mg tablet,delayed 40 mg PO QAM 11/12/22 11/25/23 release (Protonix) vitamin B complex See Rx Instructions .Route .COMPLEX 11/12/22 11/25/23 furosemide 40 mg tablet 40 mg PO .qd 11/13/23 11/25/23 atorvastatin 40 mg tablet (Lipitor) 40 mg PO DAILY 11/25/23 11/25/23 levalbuterol HCl 1.25 mg/3 mL 1.25 mg inhalation Q8H PRN 11/25/23 11/25/23 solution for nebulization shortness of breath or wheezing tamsulosin 0.4 mg capsule (Flomax) 0.4 mg PO DAILY 11/25/23 11/25/23 Previous Rx's ?Medication ?Instructions ?Recorded metoprolol succinate 50 mg 100 mg (2 x 50 mg) PO DAILY #0 tabs 11/17/22 tablet,extended release 24 hr nitroglycerin 0.4 mg sublingual 0.4 mg sublingual Q5M PRN chest 11/14/23 tablet pain #10 tabs Allergies Allergy/AdvReac Type Severity Reaction Status Date / Time lidocaine AdvReac Unknown Rash Verified 11/25/23 13:07 tramadol [From Ultram] AdvReac Unknown Migraine Verified 11/25/23 13:07 novacaine AdvReac Unknown Rash Uncoded 11/25/23 13:07 Opioid HPI Opioid Management Most Recent Opioid Data: Last Pain Scale 0 11/25/23 13:28 Last Pain Intensity 0 10/27/22 09:48 Last ORT Total Score 3 11/13/23 17:39 Last ORT Risk Category Low Risk 11/13/23 17:39 Review of Systems ROS Constitutional Denies: fever or chills Ears, nose, mouth, and throat Denies: throat pain or nasal congestion Cardiovascular Reports: chest pain Respiratory Denies: shortness of breath or cough Gastrointestinal Denies: nausea or vomiting Musculoskeletal Denies: back pain Integumentary/Breast Denies: rash Neurological Denies: numbness in extremities or weakness in extremities PFSH PFS Medical History Surgical History Family History Mother Family history of CHF (congestive heart failure) Family history of hypertension Family history of myocardial infarction Father Family history of cancer Sister Family history of cancer Social History Within the past year, how often did you have a drink containing alcohol: never Score interpretation: A score less than 4 is consistent with normal alcohol consumption. Smoking status: Former smoker Non-prescribed substance use: denies use Previous occupational history: retired Highest level of school completed/degree received: high school graduate Are you now , , , , never or living with a partner: In a typical week, how many times do you talk on the telephone with family, friends, or neighbors: 3 or more times per week How often do you get together with friends or relatives: 3 or more times per week How often do you attend anglican or rastafari services: 4 or more times per year Little interest or pleasure in doing things: not at all Feeling down, depressed, or hopeless: not at all Feel stressed/tense/nervous/anxious/difficulty sleeping: not at all Do you think of yourself as: straight/heterosexual Gender Identity: male Exam Narrative Exam Narrative: Gen.: Awake, alert, in no distress Head: Normocephalic, atraumatic ENT: Moist mucous membranes Respiratory: No respiratory distress, lungs clear bilaterally Cardio: Regular rate and rhythm Gastrointestinal: Abdomen is soft, nondistended and nontender to palpation Extremities: Moves extremities equally, no pedal edema Psych: Normal mood and affect Neuro: No focal neuro deficit Skin: Warm, dry, intact Constitutional Vital Signs, click to edit/add: Last Vital Signs Temp 97.7 F 11/25/23 13:01 Pulse 61 11/25/23 14:40 Resp 13 11/25/23 14:40 BP 157/84 H 11/25/23 13:05 Pulse Ox 95 11/25/23 14:40 O2 Del Method Room Air 11/25/23 13:01 Course Vital Signs Vital signs: Vital Signs Temperature 97.7 F 11/25/23 13:01 Pulse Rate 74 11/25/23 13:01 Respiratory Rate 18 11/25/23 13:01 Blood Pressure 157/84 H 11/25/23 13:01 Pulse Oximetry 99 11/25/23 13:01 Oxygen Delivery Method Room Air 11/25/23 13:01 Temperature 97.7 F 11/25/23 13:01 Pulse Rate 61 11/25/23 14:40 Respiratory Rate 13 11/25/23 14:40 Blood Pressure 157/84 H 11/25/23 13:05 Pulse Oximetry 95 11/25/23 14:40 Oxygen Delivery Method Room Air 11/25/23 13:01 Medical Decision Making MDM Narrative Medical decision making narrative: Patient with no active chest pain in the emergency department, his EKG from his previous admission was compared to his EKG from the primary care office and there are inferior Q waves. EKG obtained on arrival to the emergency department today shows no change from the previous EKG on 11/13/2023 from previous admission. There are no Q waves present on today's EKG. The emergency department EKG today shows normal sinus rhythm with first-degree AV block. Cardiac workup was obtained. Chest x-ray shows a mild haziness in the right lung. Patient with no fevers or coughing. He was given aspirin as a precaution, though he had no complaints of pain or nausea. Case discussed with [facility] cardiology. Dr. Taylor recommended that the patient have a Lexiscan stress test, no emergent need for the patient to be transferred to [facility]. I did discuss this with the hospitalist at this facility, Dr. Lopez was agreeable to admitting the patient for stress test, however we are not able to get a stress test done emergently as an inpatient tomorrow. The patient is scheduled in 2 days to have an outpatient stress test. Patient has been chest pain-free in the emergency department. A repeat troponin was obtained. I contacted the [facility] cardiology clinic locally, they can see the patient next week for stress test follow-up on 11/30 at 3 PM. 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 Patient was reevaluated by attending physician prior to discharge, he is agreeable to follow-up and treatment plan. He is stable at time of discharge from the ER. This patient has no EKG changes, no chest pain in the ER. He was instructed to return to the ER if symptoms change or worsen. He has appropriate outpatient follow-up for stress test and cardiology follow-up. Patient and his are in agreement with treatment plan at time of discharge. SHARED APC VISIT, PHYSICIAN ATTESTATION: [id number] I performed a substantive part of the MDM during the patient?s E/M visit. I personally evaluated and examined the patient. I personally made or approved the documented management plan and acknowledge its risk of complications. Medical Records Medical records reviewed: Yes I reviewed the patient's medical records Lab Data Lab results reviewed: Yes I reviewed the patient's lab results Labs: Lab Results 11/25/23 11/25/23 11/25/23 Range/Units 13:12 13:43 15:06 WBC 7.9 (4.0-11.0) 10^3/uL RBC 4.55 L (4.70-6.10) 10^6/uL Hgb 14.2 (14.0-18.0) g/dL Hct 41.7 L (42.0-54.0) % MCV 91.6 (80.0-94.0) fL MCH 31.2 (25.9-34.0) pg MCHC 34.1 (29.9-35.2) g/dL RDW 13.6 (11.0-15.0) % Plt Count 249 (150-450) 10^3/uL MPV 10.5 (9.5-13.5) fL Neut % (Auto) 60.4 (43.0-75.0) % Lymph % (Auto) 23.3 (20.5-60.0) % [place] % (Auto) 11.3 (1.7-12.0) % Eos % (Auto) 4.2 (0.9-7.0) % Baso % (Auto) 0.5 (0.2-2.0) % Neut # (Auto) 4.8 (1.4-6.5) 10^3/uL Lymph # (Auto) 1.9 (1.2-3.8) 10^3/uL [place] # (Auto) 0.9 H (0.3-0.8) 10^3/uL Eos # (Auto) 0.3 (0.0-0.7) 10^3/uL Baso # (Auto) 0.0 (0.0-0.1) 10^3/uL Abs Immat Gran (auto) 0.02 (0.00-0.03) 10^3/uL Imm/Tot Granulo (auto) 0.3 (0.0-0.5) % PT 11.8 H (9.0-11.6) sec INR 1.13 Sodium 134 L (136-145) mmol/L Potassium 4.1 (3.5-5.1) mmol/L Chloride 101 (98-107) mmol/L Carbon Dioxide 30.2 (21.0-32.0) mmol/L Anion Gap 6.9 BUN 12.0 (7.0-18.0) mg/dL Creatinine 1.44 H (0.70-1.30) mg/dL Est GFR ( Amer) 56 L (>=60 mL/min/1.73m^2) Est GFR (Non-Af Amer) 47 L (>=60 mL/min/1.73m^2) BUN/Creatinine Ratio 8.3 Glucose 84 (74-106) mg/dL Lactate 1.5 (0.4-2.0) mmol/L Calcium 8.9 (8.5-10.1) mg/dL Total Bilirubin 0.8 (0.2-1.0) mg/dL AST 53 H (15-37) U/L ALT 48 (16-63) U/L Alkaline Phosphatase 189 H (46-116) U/L Troponin I High Sens <4.0 L <4.0 L (4.0-76.1) pg/mL NT-Pro-B Natriuret Pep 228.0 (<=1800.0) pg/mL Total Protein 7.9 (6.4-8.2) g/dL Albumin 3.5 (3.4-5.0) g/dL Globulin 4.4 g/dL Albumin/Globulin Ratio 0.8 Imaging Data Chest x-ray: Attestation: I have reviewed the pertinent imaging results. Radiologist's impression: ITS Impressions Chest X-Ray 11/25/23 13:27 IMPRESSION: 1. Mild right basilar atelectasis versus infiltrates. Electronically authenticated by: HOWARD REES Date: 11/25/2023 13:58 ECG Data Attestation: I personally reviewed and interpreted this ECG as follows: (Normal sinus rhythm at a rate of 63, first-degree AV block with no acute ST elevation or ectopy. EKG reviewed by attending physician) Discharge Plan Discharge Chief Complaint: Chest Pain Clinical Impression: Chest pain Patient Disposition: Home, Self-Care Time of Disposition Decision: 15:31 Condition: Good Prescriptions / Home Meds: No Action tamsulosin 0.4 mg capsule 0.4 mg PO Q24H acetaminophen [Aphen] 325 mg tablet 650 mg PO Q6H PRN (Reason: fever or pain) zolpidem 10 mg tablet 10 mg PO BEDTIME PRN (Reason: sleep) diazepam 5 mg tablet 5 mg PO Q8H PRN (Reason: anxiety) Patient Comments: last filled 05-26-22; 180 tablets for a 90 day supply pantoprazole [Protonix] 40 mg tablet,delayed release (DR/EC) 40 mg PO QAM montelukast [Singulair] 10 mg tablet 10 mg PO QPM vitamin B complex [Vitamin B Complex-100] See Rx Instructions .ROUTE .COMPLEX Rx Instructions: 1 tablet; Take one daily ascorbic acid (vitamin C) [C-1000] 1,000 mg tablet 1 g PO DAILY metoprolol succinate 50 mg tablet extended release 24 hr 100 mg PO DAILY Qty: 0 0RF furosemide 40 mg tablet 40 mg PO .qd nitroglycerin 0.4 mg tablet, sublingual 0.4 mg sublingual Q5M PRN (Reason: chest pain) Qty: 10 0RF Rx Instructions: do not exceed 3 doses per episode atorvastatin 20 mg tablet 40 mg PO DAILY cetirizine 10 mg tablet 10 mg PO DAILY potassium chloride 10 mEq tablet extended release 20 meq PO BID Patient Comments: Filled 540 tablets for a 90 day supply on 10-13-22 tamsulosin [Flomax] 0.4 mg capsule 0.4 mg PO DAILY atorvastatin [Lipitor] 40 mg tablet 40 mg PO DAILY levalbuterol HCl 1.25 mg/3 mL solution for nebulization 1.25 mg inhalation Q8H PRN (Reason: shortness of breath or wheezing) Print Language: [place]an Instructions: Chest Pain (ED) Additional Instructions: Please follow up for your stress test on Thursday as scheduled, then see Dr. Taylor next week to follow up on the stress test. If your chest pain is unrelieved with nitro or your symptoms worsen, please come back to the ER right away Referrals: DARREN BRAAJAS [Primary Care Provider] - 1 week Manisha Taylor MD [Physician] - 12/01/23 3:00 pm
--- NOTE | 2023-11-25 13:27 | XR_ITS ---
The [address] [address] Patient Name: DC LUO MRN: [id number] date: 1935 Sex: M Assigned Patient Location: ER Current Patient Location: ER Accession/Order Number: [id number] Exam Date: 11/25/2023 13:20 Report Date: 11/25/2023 13:58 At the request of: TERRY DRAKE Procedure: XR chest 1V EXAMINATION: XR chest 1V HISTORY: chest pain COMPARISON: XR chest 11/13/2023, 10/24/2022 FINDINGS: LUNGS: Mild haziness and stranding within medial right lung base. VASCULATURE: No increased pulmonary vasculature. PLEURA: No pneumothorax, effusion, or pleural thickening. CARDIAC: No cardiomegaly or cardiac silhouette abnormality. MEDIASTINUM: Prior sternotomy. No abnormal widening. BONES: No fracture or visible bone lesion. OTHER: Negative. XR/XR chest 1V IMPRESSION: 1. Mild right basilar atelectasis versus infiltrates. Electronically authenticated by: HOWARD REES Date: 11/25/2023 13:58
[2023-11-25 13:30] LABS: Basophils Percent Auto 0.5 % (0.2-2.0); Eosinophils Absolute Auto 0.3 10^3/uL (0.0-0.7); Eosinophils Percent Auto 4.2 % (0.9-7.0); Hematocrit 41.7 % (42.0-54.0); Hemoglobin 14.2 g/dL (14.0-18.0); Immature Granulocytes Abs Auto 0.02 10^3/uL (0.00-0.03); Immature Granulocytes Pct Auto 0.3 % (0.0-0.5); Lymphocytes Absolute Auto 1.9 10^3/uL (1.2-3.8); Lymphocytes Percent Auto 23.3 % (20.5-60.0); Mean Corpuscular HGB Conc 34.1 g/dL (29.9-35.2); Mean Corpuscular Hemoglobin 31.2 pg (25.9-34.0); Mean Corpuscular Volume 91.6 fL (80.0-94.0); Mean Platelet Volume 10.5 fL (9.5-13.5); Monocytes Absolute Auto 0.9 10^3/uL (0.3-0.8); Monocytes Percent Auto 11.3 % (1.7-12.0); Neutrophils Absolute Auto 4.8 10^3/uL (1.4-6.5); Neutrophils Percent Auto 60.4 % (43.0-75.0); Platelet Count 249 10^3/uL (150-450); Red Blood Count 4.55 10^6/uL (4.70-6.10); Red Cell Distribution Width 13.6 % (11.0-15.0); White Blood Count 7.9 10^3/uL (4.0-11.0)
[2023-11-25] MEDS: ASPIRIN 81 MG TAB.CHEW 162 MG PO (13:44)
[2023-11-25 13:50] LABS: Anion Gap 6.9
[2023-11-25 13:56] LABS: Alanine Aminotransferase 48 U/L (16-63); Albumin Globulin Ratio 0.8; Albumin Level 3.5 g/dL (3.4-5.0); Alkaline Phosphatase 189 U/L (46-116); Aspartate Amino Transferase 53 U/L (15-37); BUN Creatinine Ratio 8.3; Bilirubin Total 0.8 mg/dL (0.2-1.0); Calcium 8.9 mg/dL (8.5-10.1); Carbon Dioxide 30.2 mmol/L (21.0-32.0); Chloride 101 mmol/L (98-107); Estimated GFR (African America 56 (>=60 mL/min/1.73m^2); Estimated GFR (Non-African Ame 47 (>=60 mL/min/1.73m^2); Globulin 4.4 g/dL; Glucose 84 mg/dL (74-106); Potassium 4.1 mmol/L (3.5-5.1); Sodium 134 mmol/L (136-145); Total Protein 7.9 g/dL (6.4-8.2); Troponin I High Sensitivity <4.0 pg/mL (4.0-76.1)
[2023-11-25 14:03] LABS: INR 1.13; Prothrombin Time 11.8 sec (9.0-11.6)
[2023-11-25 14:08] LABS: Lactate/Lactic Acid 1.5 mmol/L (0.4-2.0)
[2023-11-25 15:29] LABS: Troponin I High Sensitivity <4.0 pg/mL (4.0-76.1)
== END 2023-11-25 15:41 | disposition home or self-care (01) ==
PROVIDERS: Physician Assistant; Emergency Provider Emergency Medicine; PCP Internal Medicine
DX: R07.9 Chest pain, unspecified (principal); I25.10 Atherosclerotic heart disease of native coronary artery without angina pectoris; Z95.5 Presence of coronary angioplasty implant and graft; Z87.891 Personal history of nicotine dependence
CPT/HCPCS: 36415; 71045; 80053; 83605; 83880; 84484; 85025; 85610; 93005; 99285

== ENCOUNTER 2023-11-27 08:02 | Outpatient (OUT) | payer MEDICARE, OTHER, SELFPAY ==
--- NOTE | 2023-11-27 | PCN_ITS ---
CARDIAC STRESS TEST Requesting Physician: Yonas Hector M.D. Procedure Date: 11/27/2023 PERFORMING PROVIDER: Edin Pink M.D. INDICATION: Chest pain, abnormal EKG. STRESS TEST TYPE: Lexiscan myocardial perfusion imaging. Resting heart rate: 59 Maximal heart rate: 80 Resting blood pressure: 148/84 Maximum blood pressure: 148/84 ST changes: No significant ST changes meeting the criteria for ischemia. Symptoms: Heart rate resolved by the end of exam. Arrhythmias: PVCs. CONCLUSION: 1. Resting EKG is abnormal with atrial fibrillation. 2. Resting blood pressure is abnormal, 148/84. 3. There were no significant ST changes meeting the criteria for ischemia post Lexiscan infusion. 4. Please refer to separately interpreted and reported nuclear myocardial perfusion images. [facility]
--- OUTSIDE RECORDS SUMMARY | 2023-11-27 08:07 | XMS_ITS | CCD ---
Author Organization [facility] Inform ion Partnership [facility] Care Team Providers Care Automatic Maintainer Name Role Phone JOSE TRINH Unavailable Unavailable [...] HOYBUD Referring Unavailable EFRA, JORDYN Attending Unavailable EFRA, JORDYN Admitting Unavailable SHARI SULLIVAN Attending Unavailable SHARI SULLIVAN Attending Unavailable NOLAN BAUTISTA Attending Unavailable VENECIA BROWNLEE Attending Unavailable NOLAN BAUTISTA Attending Unavailable RODRIGUEZ QUINONES Attending Unavailable Allergies Allergy Classification Reported Allergen(s) Allergy Type Date of Onset Reaction(s) Facility (5 sources) traMADol; Translations: [tramadol] Drug Allergy 7 Paranoid disorder (disorder) [facility] (1 source) Acetaminophen / oxyCODONE Drug Allergy 3 [facility] Repository (2 sources) Albuterol; Translations: [ALBUTEROL] Drug Allergy 3 [facility] Repository (1 source) formoterol Drug Allergy [facility] Repository (1 source) levoFLOXacin Drug Allergy 6 [facility] Repository (2 sources) Lidocaine; Translations: [LIDOCAINE] Drug Allergy 3 [facility] Repository (1 source) oxyCODONE Drug Allergy [facility] Rep[facility] (1 source) traMADol Drug Allergy 3 [facility] Repository (2 sources) Ether; Translations: [ETHER] Drug allergy (disorder) 0 [facility] Repository (1 source) Acetaminophen / oxyCODONE; Translations: [OXYCODONE-ACETAM INOPHEN] Drug Allergy 7 [facility] Repository (1 source) Codeine / guaiFENesin; Translations: [CODEINE-GUAIFENE SIN] Drug Allergy 1 [facility] Repository (1 source) levoFLOXacin; Translations: [LEVOFLOXACIN] Drug Allergy 1 [facility] Repository (1 source) oxyCODONE; Translations: [OXYCODONE HCL] Drug Allergy 1 [facility] Repository Medications Current Medications Medication Drug Class(es) [...] afterwards, # 2 tab(s), Refills(s) 0, Pharmacy: [id number], 188, cm, 03/05/22 14:43:00 EST, Height/Length [...] (3 sources) Anticholinergic Start: 03-05-2022 Atrovent 0.03% [place] 2 spray(s), Nasal, TID, 30 mL Start [...] Vasodilator Start: 03-05-2022 nitroglycerin 0.4 mg SubL [place] mg spray(s), SubLingual, q5min Start Date: 03/05/22 Status: Ordered pantoprazole 40 mg delayed release oral tablet (3 sources) Proton Pump Inhibitor Start: 03-05-2022 take 1 mg by mouth once daily Protonix 40 mg Tab-DR mg tab(s), Oral, Daily Start Date: 03/05/22 Status: Ordered Potassium Chloride (3 sources) Start: 03-05-2022 Potassium Chloride (Epf-Kfob-Tmo 10) mEq, Oral, BID Start Date: 03/05/22 [...] Range Facility Office Visiton 07-15-2023 Follow-up visit [id number] Doreen Rasmussenyolanda od L 1935 M Date Provider Department Center 07/15/2023 Xi-SANJAY HECTOR [facility] No family history on file Level of Service:69539 AL OFFICE/OUTPATIENT ESTABLISHED MOD MDM 30 MIN Normal [facility] Office Visiton 01-06-2023 Follow-up visit [id number] Doreen Rasmussenyolanda od L 1935 M Date Provider Department Center 01/06/2023 [id number]-[id number] SULLIVAN [facility] No family history on file Level of Service:49538 AL OFFICE/OUTPATIENT ESTABLISHED MOD MDM 30-39 MIN Normal [facility] Office Visiton 11-21-2022 Follow-up visit [id number] Etelvina Rasmussenradha od L 1935 M Date Provider Department Center 11/21/2022 [id number]-VXYZADCKASHARI TYSON ZHEN [facility] No family history on file Level of Service:98634 AL OFFICE/OUTPATIENT ESTABLISHED MOD MDM 30-[address] [facility] 30on 10-31-2022 30 Spoke with patient, patient is making PCP appointment and Patient would like to follow up with a dynamo repairer that is closer to home, patient stated he is going to get his PCP to set him up with GI MD to follow up with, patient verbalizes understanding of these appointments and need to establish soon. Patient is going home with [facility]. AVS and DC order faxed through care port to [facility] 30 Daily Case Managemen t Update Multidisciplinary rounds have been completed. Barriers to Discharge: pending MRCP results and GI recs, home with [facility] on DC Diet: Dietary Orders (From [...] Therapy Types of Home Health Service needed Custodial Please indicate your approval for this care by adding your name here: COOPERVICTORINO ESTEBAN 10/28/[address] [facility] 30 The patient is Moderately Stable [...] facility with appropriate resources Outcome: Progressing Normal [facility] BASIC METABOLIC PANELon 09- Anion gap [Moles/Vol] 10 mmol/L Normal 7-20 [facility] Comment on above: Performed By: #### L [id number] #### [facility] ([facility]) [address] [place] [address] Calcium [Mass/Vol] 8.3 mg/dL Low 8.6-10.3 [facility] Comment on above: Performed By: #### L [id number] #### [facility] ([facility]) [address] [place] [address] Chloride [Moles/Vol] 106 mmol/L Normal 98-107 [facility] Comment on above: Performed By: #### L [id number] #### [facility] ([facility]) [address] [place] [address] CO2 [Moles/Vol] 25 mmol/L Normal 21-31 [facility] Comment on above: Performed By: #### L [id number] #### [facility] ([facility]) [address] [place] [address] Creatinine [Mass/Vol] 0.95 mg/dL Normal 0.70-1.30 [facility] Comment on above: Performed By: #### L [id number] #### [facility] ([facility]) [address] [place] [address] GLOMERULAR FILTRATION RATE ML/MIN/1.73 SQ M.PREDICTED 78.4 mL/min/1.73m*2 Normal >60.0 [facility] Comment on above: Result Comment: The [facility]???s estimated glomerular filtration rate (eGFR) will no [...] individuals. Performed By: #### L [id number] #### [facility] ([facility]) [address] [place] [address] Glucose [Mass/Vol] 84 mg/dL Normal 70-100 [facility] Comment on above: Performed By: #### L [id number] #### [facility] ([facility]) [address] [place] [address] Potassium [Moles/Vol] 3.7 mmol/L Normal 3.5-5.1 [facility] Comment on above: Performed By: #### L [id number] #### [facility] ([facility]) [address] [place] [address] Sodium [Moles/Vol] 137 mmol/L Normal 136-145 [facility] Comment on above: Performed By: #### L [id number] #### [facility] ([facility]) [address] [place] [address] Urea nitrogen [Mass/Vol] 16 mg/dL Normal 7-25 [facility] Comment on above: Performed By: #### L [id number] #### [facility] ([facility]) [address] [place] [address] UREA NITROGEN/CREATININE (MASS RATIO) IN SER/PLAS 16.8 Normal [facility] Comment on above: Performed By: #### L [id number] #### [facility] ([facility]) [address] [place] [address] CBC WITH AUTO DIFFERENTIALon 10-31-2022 Basophils (Bld) [#/Vol] 0.08 10*3/uL Normal 0.00-0.20 [facility] Comment on above: Performed By: #### L [id number] #### [facility] ([facility]) [address] [place] [address] Basophils/100 WBC (Bld) 0.6 % Normal 0.0-1.0 [facility] Comment on above: Performed By: #### L [id number] #### [facility] ([facility]) [address] [place] [address] Eosinophils (Bld) [#/Vol] 0.78 10*3/uL High 0.00-0.50 [facility] Comment on above: Performed By: #### L [id number] #### [facility] ([facility]) [address] [place] [address] Eosinophils/100 WBC (Bld) 6.1 % High 0.0-6.0 [facility] Comment on above: Performed By: #### L [id number] #### [facility] ([facility]) [address] [place] [address] Erythrocyte distribution width (RBC) [Ratio] 15.9 % High 11.5-15.0 [facility] Comment on above: Performed By: #### L [id number] #### [facility] ([facility]) [address] [place] [address] ERYTHROCYTE MEAN CORPUSCULAR HEMOGLOBIN CONCENTRATION (G/DL) BY AUTOMATED 34.0 g/dL Normal 32.0-35.0 [facility] Comment on above: Performed By: #### L [id number] #### [facility] ([facility]) [address] [place] [address] Hematocrit (Bld) [Volume fraction] 36.5 % Low 39.0-55.0 [facility] Comment on above: Performed By: #### L [id number] #### [facility] ([facility]) [address] [place] [address] Hemoglobin (Bld) [Mass/Vol] 12.4 g/dL Low 13.0-17.0 [facility] Comment on above: Performed By: #### L [id number] #### [facility] ([facility]) [address] [place] [address] Immature granulocytes (Bld) [#/Vol] 0.29 10*3/uL High 0.00-0.20 [facility] Comment on above: Performed By: #### L [id number] #### [facility] ([facility]) [address] [place] [address] Immature granulocytes/100 WBC (Bld) 2.3 % High 0.0-1.0 [facility] Comment on above: Performed By: #### L [id number] #### [facility] ([facility]) [address] [place] [address] Lymphocytes (Bld) [#/Vol] 2.09 10*3/uL Normal 1.20-4.00 [facility] Comment on above: Performed By: #### L [id number] #### [facility] ([facility]) [address] [place] [address] Lymphocytes/100 WBC (Bld) 16.3 % Low 20.0-45.0 [facility] Comment on above: Performed By: #### L [id number] #### [facility] ([facility]) [address] [place] [address] MCH (RBC) [Entitic mass] 29.0 pg Normal 27.0-33.0 [facility] Comment on above: Performed By: #### L [id number] #### [facility] ([facility]) [address] [place] [address] MCV (RBC) [Entitic vol] 85.5 fL Normal 82.0-98.0 [facility] Comment on above: Performed By: #### L [id number] #### [facility] ([facility]) [address] [place] [address] Monocytes (Bld) [#/Vol] 0.83 10*3/uL Normal 0.10-1.00 [facility] Comment on above: Performed By: #### L [id number] #### [facility] ([facility]) [address] [place] [address] Monocytes/100 WBC (Bld) 6.5 % Normal 5.0-12.0 [facility] Comment on above: Performed By: #### L [id number] #### [facility] ([facility]) [address] [place] [address] Neutrophils (Bld) [#/Vol] 8.73 10*3/uL High 1.60-7.60 [facility] Comment on above: Performed By: #### L [id number] #### [facility] ([facility]) [address] [place] [address] Neutrophils/100 WBC (Bld) 68.2 % Normal 40.0-72.0 [facility] Comment on above: Performed By: #### L [id number] #### [facility] ([facility]) [address] [place] [address] NRBC (PER 100 WBCS) BY AUTOMATED COUNT 0.0 % Normal 0 [facility] Comment on above: Performed By: #### L [id number] #### [facility] ([facility]) [address] [place] [address] PLATELETS (10*3/UL) IN BLOOD AUTOMATED COUNT 328 10*3/uL Normal 150-400 [facility] Comment on above: Performed By: #### L [id number] #### [facility] ([facility]) [address] [place] [address] RBC (Bld) [#/Vol] 4.27 10*6/uL Normal 4.20-5.70 [facility] Comment on above: Performed By: #### L [id number] #### [facility] ([facility]) [address] [place] [address] WBC (Bld) [#/Vol] 12.80 10*3/uL High 4.00-10.60 [facility] Comment on above: Performed By: #### L [id number] #### [facility] [address] [place] [address] HEPATIC FUNCTION PANELon Albumin [Mass/Vol] 2.7 g/dL Low 3.5-5.7 [facility] Comment on above: Performed By: #### L [id number] #### [facility] ([facility]) [address] [place] [address] ALP [Catalytic activity/Vol] 231 U/L High 34-104 [facility] Comment on above: Performed By: #### L [id number] #### [facility] ([facility]) [address] [place] [address] ALT [Catalytic activity/Vol] 90 U/L High 7-52 [facility] Comment on above: Performed By: #### L [id number] #### [facility] ([facility]) [address] [place] [address] AST [Catalytic activity/Vol] 42 U/L High 13-39 [facility] Comment on above: Performed By: #### L [id number] #### [facility] ([facility]) [address] [place] [address] Bilirubin [Mass/Vol] 0.7 mg/dL Normal 0.3-1.0 [facility] Comment on above: Performed By: #### L [id number] #### [facility] ([facility]) [address] [place] [address] Magnesium [Mass/Vol] 0.2 mg/dL Normal 0-0.2 [facility] Comment on above: Performed By: #### L [id number] #### [facility] ([facility]) [address] [place] [address] Protein [Mass/Vol] 6.8 g/dL Normal 6.0-8.3 [facility] Comment on above: Performed By: #### L [id number] #### [facility] ([facility]) [address] [place] [address] LACTATE DEHYDROGENASEon 10-17 LACTATE DEHYDROGENASE (U/L) IN SER/PLAS BY LAC->PYR RXN 180 U/L Normal 140-271 [facility] Comment on above: Performed By: #### L [id number] #### [facility] ([facility]) [address] [place] [address] ANTI-SMOOTH MUSCLE ANTIBODY TITERon 10-30-2022 SMOOTH MUSCLE AB, IGG TITER 1:160 High <1:20 [facility] Comment on above: Result Comment: INTE RPRETIVE INFORMATION: Smooth Muscle Ab, IgG Titer Less than 1:20 ........ Negative - No antibody detected. 1:20 - 1:80 .......... Weak Positive - Suggest repeat in two to three weeks with fresh specimen. 1:160 or greater ...... Positive - Suggestive of autoimmune hepatitis or chronic active hepatitis. Performed By: [facility] [address] [place] [id number] Riveter Hand: Sylvester Levine MD, PhD CLIA Number: [id number] Performed By: #### L [id number] #### [facility] ([facility]) [address] [place] [address] ANTI-SMOOTH MUSCLE ANTIBODY, IGG WITH REFLEX TO TITERon 10-30-2022 SMOOTH MUSCLE ANTIBODY 90 Units High 0-19 [facility] Comment on above: Result Comment: REFE RENCE [...] suspicion for AIH is strong. Performed By: [facility] [address] [place] [address] Riveter Hand: Sylvester Levine MD, PhD CLIA Number: [id number] Performed By: #### L [id number] #### [facility] ([facility]) [address] [place] [address] BASIC METABOLIC PANELon 09- Anion gap [Moles/Vol] 9 mmol/L Normal 7-20 [facility] Comment on above: Performed By: #### L [id number] #### [facility] [address] [place] [address] Calcium [Mass/Vol] 8.3 mg/dL Low 8.6-10.3 [facility] Comment on above: Performed By: #### L [id number] #### [facility] ([facility]) [address] [place] [address] Chloride [Moles/Vol] 107 mmol/L Normal 98-107 [facility] Comment on above: Performed By: #### L [id number] #### [facility] ([facility]) [address] [place] [address] CO2 [Moles/Vol] 23 mmol/L Normal 21-31 [facility] Comment on above: Performed By: #### L [id number] #### [facility] ([facility]) [address] [place] [address] Creatinine [Mass/Vol] 0.79 mg/dL Normal 0.70-1.30 [facility] Comment on above: Performed By: #### L [id number] #### [facility] ([facility]) [address] [place] [address] GLOMERULAR FILTRATION RATE ML/MIN/1.73 SQ M.PREDICTED 87.1 mL/min/1.73m*2 Normal >60.0 [facility] Comment on above: Result Comment: The [facility]???s estimated glomerular filtration rate (eGFR) will no [...] individuals. Performed By: #### L [id number] #### [facility] ([facility]) [address] [place] [address] Glucose [Mass/Vol] 112 mg/dL High 70-100 [facility] Comment on above: Performed By: #### L [id number] #### [facility] ([facility]) [address] [place] [address] Potassium [Moles/Vol] 4.3 mmol/L Normal 3.5-5.1 [facility] Comment on above: Performed By: #### L [id number] #### [facility] ([facility]) [address] [place] [address] Sodium [Moles/Vol] 135 mmol/L Low 136-145 [facility] Comment on above: Performed By: #### L [id number] #### [facility] ([facility]) [address] [place] [address] Urea nitrogen [Mass/Vol] 14 mg/dL Normal 7-25 [facility] Comment on above: Performed By: #### L [id number] #### [facility] ([facility]) [address] [place] [address] UREA NITROGEN/CREATININE (MASS RATIO) IN SER/PLAS 17.7 Normal [facility] Comment on above: Performed By: #### L [id number] #### [facility] ([facility]) [address] [place] [address] CBCon 10-30-2022 Erythrocyte distribution width (RBC) [Ratio] 15.6 % High 11.5-15.0 [facility] Comment on above: Performed By: #### L [id number] #### [facility] ([facility]) [address] [place] [address] ERYTHROCYTE MEAN CORPUSCULAR HEMOGLOBIN CONCENTRATION (G/DL) BY AUTOMATED 33.7 g/dL Normal 32.0-35.0 [facility] Comment on above: Performed By: #### L [id number] #### [facility] [address] [place] [address] Hematocrit (Bld) [Volume fraction] 35.9 % Low 39.0-55.0 [facility] Comment on above: Performed By: #### L [id number] #### [facility] ([facility]) [address] [place] [address] Hemoglobin (Bld) [Mass/Vol] 12.1 g/dL Low 13.0-17.0 [facility] Comment on above: Performed By: #### L [id number] #### [facility] ([facility]) [address] [place] [address] MCH (RBC) [Entitic mass] 29.0 pg Normal 27.0-33.0 [facility] Comment on above: Performed By: #### L [id number] #### [facility] ([facility]) [address] [place] [address] MCV (RBC) [Entitic vol] 86.1 fL Normal 82.0-98.0 [facility] Comment on above: Performed By: #### L [id number] #### [facility] ([facility]) [address] [place] [address] PLATELETS (10*3/UL) IN BLOOD AUTOMATED COUNT 270 10*3/uL Normal 150-400 [facility] Comment on above: Performed By: #### L [id number] #### [facility] ([facility]) [address] [place] [address] RBC (Bld) [#/Vol] 4.17 10*6/uL Low 4.20-5.70 [facility] Comment on above: Performed By: #### L [id number] #### [facility] ([facility]) [address] [place] [address] WBC (Bld) [#/Vol] 16.02 10*3/uL High 4.00-10.60 [facility] Comment on above: Performed By: #### L [id number] #### [facility] [address] [place] [address] DERMATOPATHOLOGY EXAMon 10-17 LAB AP CASE REPORT Normal [facility] Comment on above: Order Comment: Diffu se erythematous nummular almost purpuric patches (some cindy, most no to minimal blanching) across the abdomen, lower chest, proximal thighs and slightly on proximal arms for 1 month. Few areas on the lower legs and dorsal feet (back mostly spared, not on neck or face). Non pruritic. No new medications Result Comment: Derm atopathology Case: [id number] Authorizing Provider: Beryl Neal MD Collected: 10/30/2022 1055 Ordering Location: [address] Urology Received: 10/31/2022 0739 Pathologist: Gege Lyons MD Specimen: Skin, Chest, left Performed By: #### L [id number] #### [facility] ([facility]) [address] [place] [address] LAB AP CLINICAL INFORMATION Diffuse erythematous nummular almost purpuric patches (some cindy, most no to minimal blanching) across the abdomen, lower chest, proximal thighs and slightly on proximal arms for 1 month. Few areas on the lower legs and dorsal feet (back mostly spared, not on neck or face). Non pruritic. No new medications Normal [facility] Comment on above: Order Comment: Diffu se erythematous nummular almost purpuric patches (some cindy, most no to minimal blanching) across the abdomen, lower chest, proximal thighs and slightly on proximal arms for 1 month. Few areas on the lower legs and dorsal feet (back mostly spared, not on neck or face). Non pruritic. No new medications Performed By: #### L [id number] #### [facility] ([facility]) [address] [place] [address] LAB AP DIAGNOSIS COMMENT The findings are [...] lesion are recommended if clinically warranted. Normal [facility] Comment on above: Order Comment: Diffu se erythematous nummular almost purpuric patches (some cindy, most no to minimal blanching) across the abdomen, lower chest, proximal thighs and slightly on proximal arms for 1 month. Few areas on the lower legs and dorsal feet (back mostly spared, not on neck or face). Non pruritic. No new medications Performed By: #### L [id number] #### [facility] CENTER) [address] [place] [address] LAB AP GROSS DESCRIPTION A. Skin. Normal [facility] Comment on above: Order Comment: Diffu [...] Part A is received in formalin labeled [facility] and left chest. It consists of a 0.4 x 0.4 x 0.4 cm unoriented farley skin punch. The epidermis is farley and wrinkled. No lesions are identified. The resection margin is inked green and the specimen is bisected to reveal farley-white homogeneous cut surfaces. The specimen is entirely submitted in 1 cassette. Sadiq Beard, Pathologists' Manufacturing Plant Controller Student Malick Sanchez, Pathologists' Manufacturing Plant Controller Performed By: #### L [id number] #### [facility] ([facility]) [address] [place] [address] LAB AP MICROSCOPIC DESCRIPTION Sections of this punch biopsy of skin demonstrate and unremarkable epidermis except for a couple foci of parakeratosis. In the subjacent dermis, there is a sparse superficial perivascular and interstitial inflammatory infiltrate composed of lymphocytes, plasma cells, and abundant pale pigment-laden macrophages. Normal [facility] Comment on above: Order Comment: Diffu se erythematous nummular almost purpuric patches (some cindy, most no to minimal blanching) across the abdomen, lower chest, proximal thighs and slightly on proximal arms for 1 month. Few areas on the lower legs and dorsal feet (back mostly spared, not on neck or face). Non pruritic. No new medications Performed By: #### L [id number] #### [facility] ([facility]) [address] [facility] [place] [address] LAB AP REPORT FINAL DIAGNOSIS NARRATIVE Normal [facility] Comment on above: Order Comment: Diffu [...] comment Performed By: #### L [id number] #### [facility] ([facility]) [address] [place] [address] Documentationon 10-30-2022 Documentation [id number] Nabil Rasmussen od L 1935 M Date Provider Department Center 10/30/2022 391-BERYL NEAL [facility] Samuel Heal No family history on file Reason for Visit and Comments: consultation [Other] - rash Normal [facility] HEPATIC FUNCTION PANELon Albumin [Mass/Vol] 2.7 g/dL Low 3.5-5.7 [facility] Comment on above: Performed By: #### L [id number] #### [facility] ([facility]) [address] [place] [address] ALP [Catalytic activity/Vol] 248 U/L High 34-104 [facility] Comment on above: Performed By: #### L [id number] #### [facility] ([facility]) [address] [place] [address] ALT [Catalytic activity/Vol] 115 U/L High 7-52 [facility] Comment on above: Performed By: #### L [id number] #### [facility] ([facility]) [address] [place] [address] AST [Catalytic activity/Vol] 67 U/L High 13-39 [facility] Comment on above: Performed By: #### L [id number] #### [facility] ([facility]) [address] [place] [address] Bilirubin [Mass/Vol] 0.8 mg/dL Normal 0.3-1.0 [facility] Comment on above: Performed By: #### L [id number] #### [facility] ([facility]) [address] [place] [address] Magnesium [Mass/Vol] 0.4 mg/dL High 0-0.2 [facility] Comment on above: Performed By: #### L [id number] #### [facility] ([facility]) [address] [place] [address] Protein [Mass/Vol] 6.7 g/dL Normal 6.0-8.3 [facility] Comment on above: Performed By: #### L [id number] #### [facility] ([facility]) [address] [place] [address] HIV COMBO 4Gon 10-30-2022 HIV COMBO 4G Negative Normal Negative [facility] Comment on above: Performed By: #### L [id number] #### [facility] ([facility]) [address] [place] [address] MR ABDOMEN W AND WO CONTRAST MRCPon [...] pancreatic pathology. Electronically signed: Kai Jacobson. Normal [facility] PROTIME-INRon 10-30-2022 INR IN PPP BY COAGULATION ASSAY 1.20 High 0.90-1.10 [facility] Comment on above: Result Comment: ACCC P [...] 1995;108:231S-246S. Performed By: #### L [id number] #### [facility] Chug (RoboCVAKER) [address] [place] [address] PROTHROMBIN TIME (PT) IN PPP BY COAGULATION ASSAY 15.3 Seconds High 12.3-14.8 [facility] Comment on above: Performed By: #### L [id number] #### [facility] (BEAKER) [address] [place] [address] 30on 10-29-2022 30 The patient is Moderately Stable - Low risk of patient condition declining or worsening The patient's goals for the shift include rest The clinical goals for the shift include VSS, rest Normal [facility] 30 Daily Case Managemen t Update Multidisciplinary rounds have been completed. Barriers to Discharge: patient to see Derm tomorrow at 9am, then possible DC tomorrow. Home with Jake Galan [facility] Diet: Dietary Orders (From admission, onward) [...] Therapy Types of Home Health Service needed Custodial Please indicate your approval for this care by adding your name here: COOPERVICTORINO ESTEBAN 10/28/22 1451 Normal [facility] BASIC METABOLIC PANELon 10-17 Anion gap [Moles/Vol] 8 mmol/L Normal 7-20 [facility] Comment on above: Performed By: #### L [id number] #### [facility] (BEAKER) [address] [place] [address] Calcium [Mass/Vol] 8.2 mg/dL Low 8.6-10.3 [facility] Comment on above: Performed By: #### L [id number] #### [facility] [address] [place] [address] Chloride [Moles/Vol] 108 mmol/L High 98-107 [facility] Comment on above: Performed By: #### L [id number] #### [facility] ([facility]) [address] [place] [address] CO2 [Moles/Vol] 24 mmol/L Normal 21-31 [facility] Comment on above: Performed By: #### L [id number] #### [facility] ([facility]) [address] [place] [address] Creatinine [Mass/Vol] 0.97 mg/dL Normal 0.70-1.30 [facility] Comment on above: Performed By: #### L [id number] #### [facility] ([facility]) [address] [place] [address] GLOMERULAR FILTRATION RATE ML/MIN/1.73 SQ M.PREDICTED 76.5 mL/min/1.73m*2 Normal >60.0 [facility] Comment on above: Result Comment: The [facility]???s estimated glomerular filtration rate (eGFR) will no [...] individuals. Performed By: #### L [id number] #### [facility] ([facility]) [address] [place] [address] Glucose [Mass/Vol] 91 mg/dL Normal 70-100 [facility] Comment on above: Performed By: #### L [id number] #### [facility] [address] [place] [address] Potassium [Moles/Vol] 3.3 mmol/L Low 3.5-5.1 [facility] Comment on above: Performed By: #### L [id number] #### [facility] (BEAKER) [address] [place] [address] Sodium [Moles/Vol] 137 mmol/L Normal 136-145 [facility] Comment on above: Performed By: #### L [id number] #### [facility] (BEAKER) [address] [place] [address] Urea nitrogen [Mass/Vol] 14 mg/dL Normal 7-25 [facility] Comment on above: Performed By: #### L [id number] #### [facility] (BEAKER) [address] [place] [address] UREA NITROGEN/CREATININE (MASS RATIO) IN SER/PLAS 14.4 Normal [facility] Comment on above: Performed By: #### L [id number] #### [facility] (BEAKER) [address] [place] [address] CBCon 10-29-2022 Erythrocyte distribution width (RBC) [Ratio] 15.7 % High 11.5-15.0 [facility] Comment on above: Performed By: #### L [id number] #### [facility] (BEAKER) [address] [place] [address] ERYTHROCYTE MEAN CORPUSCULAR HEMOGLOBIN CONCENTRATION (G/DL) BY AUTOMATED 35.0 g/dL Normal 32.0-35.0 [facility] Comment on above: Performed By: #### L [id number] #### [facility] (BEAKER) [address] [place] [address] Hematocrit (Bld) [Volume fraction] 35.4 % Low 39.0-55.0 [facility] Comment on above: Performed By: #### L [id number] #### [facility] (BEAKER) [address] [place] [address] Hemoglobin (Bld) [Mass/Vol] 12.4 g/dL Low 13.0-17.0 [facility] Comment on above: Performed By: #### L [id number] #### [facility] (BEAKER) [address] [place] [address] MCH (RBC) [Entitic mass] 29.6 pg Normal 27.0-33.0 [facility] Comment on above: Performed By: #### L [id number] #### [facility] ([facility]) [address] [place] [address] MCV (RBC) [Entitic vol] 84.5 fL Normal 82.0-98.0 [facility] Comment on above: Performed By: #### L [id number] #### [facility] ([facility]) [address] [place] [address] PLATELETS (10*3/UL) IN BLOOD AUTOMATED COUNT 266 10*3/uL Normal 150-400 [facility] Comment on above: Performed By: #### L [id number] #### [facility] ([facility]) [address] [place] [address] RBC (Bld) [#/Vol] 4.19 10*6/uL Low 4.20-5.70 [facility] Comment on above: Performed By: #### L [id number] #### [facility] ([facility]) [address] [place] [address] WBC (Bld) [#/Vol] 15.59 10*3/uL High 4.00-10.60 [facility] Comment on above: Performed By: #### L [id number] #### [facility] ([facility]) [address] [place] [address] HEPATIC FUNCTION PANELon Albumin [Mass/Vol] 2.7 g/dL Low 3.5-5.7 [facility] Comment on above: Performed By: #### L [id number] #### [facility] ([facility]) [address] [place] [address] ALP [Catalytic activity/Vol] 227 U/L High 34-104 [facility] Comment on above: Performed By: #### L [id number] #### [facility] ([facility]) [address] [place] [address] ALT [Catalytic activity/Vol] 142 U/L High 7-52 [facility] Comment on above: Performed By: #### L [id number] #### [facility] ([facility]) [address] [place] [address] AST [Catalytic activity/Vol] 155 U/L High 13-39 [facility] Comment on above: Performed By: #### L [id number] #### [facility] ([facility]) [address] [place] [address] Bilirubin [Mass/Vol] 1.0 mg/dL Normal 0.3-1.0 [facility] Comment on above: Performed By: #### L [id number] #### [facility] ([facility]) [address] [place] [address] Magnesium [Mass/Vol] 0.5 mg/dL High 0-0.2 [facility] Comment on above: Performed By: #### L [id number] #### [facility] ([facility]) [address] [place] [address] Protein [Mass/Vol] 6.2 g/dL Normal 6.0-8.3 [facility] Comment on above: Performed By: #### L [id number] #### [facility] ([facility]) [address] [place] [address] HEPATITIS A ANTIBODY, IGMon 10-29-2022 HEPATITIS A VIRUS IGM AB PRESENCE IN SER/PLAS Non-Reactive Normal Nonreactive [facility] Comment on above: Performed By: #### L [id number] #### [facility] ([facility]) [address] [place] [address] PROTIME-INRon 10-29-2022 INR IN PPP BY COAGULATION ASSAY 1.34 High 0.90-1.10 [facility] Comment on above: Result Comment: [facility] P RECOMMENDED INR FOR WARFARIN THERAPY CONDITION [...] 1995;108:231S-246S. Performed By: #### L [id number] #### [facility] (Dakim) [address] [place] [address] PROTHROMBIN TIME (PT) IN PPP BY COAGULATION ASSAY 16.6 Seconds High 12.3-14.8 [facility] Comment on above: Performed By: #### L [id number] #### [facility] (Dakim) [address] [place] [address] 30on 10-28-2022 30 The patient is Moderately Stable - Low risk of patient condition declining or worsening The patient's goals for the shift include sleep The clinical goals for the shift include VSS, Blood cx, safety Normal [facility] 30 The patient is Moderately Stable - Low risk of patient condition declining or worsening The patient's goals for the shift include sleep The clinical goals for the shift include VSS, Blood cx, Normal [facility] 30 The patient is Moderately Stable - Low risk of patient condition declining or worsening The patient's goals for the shift include sleep The clinical goals for the shift include VSS, stable labs and safety Normal [facility] BLOOD CULTUREon 10-28-2022 Bacteria identified Cx Nom (Bld) No growth at 5 days Normal [facility] Comment on above: Performed By: #### L [id number] #### [facility] [address] [place] [address] Order Comment: From a different site than #1. Performed By: #### L [id number] #### [facility] ([facility]) [address] [place] [address] Lab Reportson 10-28-2022 Lab Reports [id number]: 127 Normal [facility] Lab Reports [id number]: 127 Normal [facility] URINALYSIS MICROSCOPIC WITH REFLEX CULTUREon 10-28-2022 CASTS IN URINE Normal [facility] Comment on above: Performed By: #### L [id number] #### [facility] ([facility]) [address] [place] [address] CRYSTALS IN URINE Normal [facility] Comment on above: Performed By: #### L [id number] #### [facility] ([facility]) [address] [place] [address] MUCUS (#/HPF) IN URINE SEDIMENT Occasional Normal None Seen, Occasional, Few [facility] Comment on above: Performed By: #### L [id number] #### [facility] ([facility]) [address] [place] [address] OTHER MICROSCOPIC ELEMENTS Normal [facility] Comment on above: Performed By: #### L [id number] #### [facility] ([facility]) [address] [place] [address] RBC (#/HPF) IN URINE SEDIMENT 0-2 Abnormal None Seen [facility] Comment on above: Performed By: #### L [id number] #### [facility] [address] [place] [address] SQUAMOUS EPITHELIAL CELLS (#/HPF) IN URINE SEDIMENT Few Abnormal None Seen, Occasional [facility] Comment on above: Performed By: #### L [id number] #### [facility]) [address] [place] [address] WBC (LEUKOCYTE) (#/HPF) IN URINE SEDIMENT 3-5 Abnormal None Seen [facility] Comment on above: Performed By: #### L [id number] #### [facility] ([facility]) [address] [place] [address] URINALYSIS WITH REFLEX CULTU REon 10-28-2022 BILIRUBIN, TOTAL PRESENCE IN URINE Negative Normal Negative [facility] Comment on above: Performed By: #### L [id number] ####[facility] ([facility])[address] [place] [address] Clarity (U) Clear Normal Clear [facility] Comment on above: Performed By: #### L [id number] ####[facility] ([facility])[address] [place] [address] Color (U) Yellow Normal Yellow [facility] Comment on above: Performed By: #### L [id number] ####[facility] ([facility])[address] [place] [address] Glucose (U) [Mass/Vol] Negative Normal Negative [facility] Comment on above: Performed By: #### L [id number] ####[facility] ([facility])[address] [place] [address] HEMOGLOBIN PRESENCE IN URINE Small Abnormal Negative [facility] Comment on above: Performed By: #### L [id number] ####[facility] ([facility])[address] [place] [address] Ketones Ql (U) Trace Abnormal Negative [facility] Comment on above: Performed By: #### L [id number] ####[facility] ([facility])[address] [place] [address] LEUKOCYTE ESTERASE PRESENCE IN URINE BY TEST STRIP Trace Abnormal Negative [facility] Comment on above: Performed By: #### L [id number] ####[facility] ([facility])[address] [place] [address] NITRITE PRESENCE IN URINE Negative Normal Negative [facility] Comment on above: Performed By: #### L [id number] ####[facility] ([facility])[address] [place] [address] pH (U) 5.0 [pH] Normal 5.0-8.0 [facility] Comment on above: Performed By: #### L [id number] ####[facility] ([facility])[address] [place] [address] Protein (U) [Mass/Vol] 30 mg/dL Abnormal Negative [facility] Comment on above: Performed By: #### L [id number] ####[facility] ([facility])[address] [place] [address] Specific gravity (U) [Rel density] 1.021 High 1.015-1.020 [facility] Comment on above: Performed By: #### L [id number] ####[facility] ([facility])[address] [place] [address] ACETAMINOPHEN LEVELon 2022 ACETAMINOPHEN (UG/ML) IN SER/PLAS <10 Low 10-30 [facility] Comment on above: Performed By: #### L [id number] #### [facility] ([facility]) [address] [place] [address] AFP TUMOR MARKERon ALPHA FETOPROTEIN TUMOR MARKER 2 ng/mL Normal 0-9 [facility] Comment on above: Result Comment: INTE RPRETIVE [...] reference intervals for this test in the [employer] [facility] Test [facility] ([facility]). Performed By: [facility] [address] [place] [id number] Riveter Hand: Sylvester Levine MD, PhD CLIA Number: [id number] Performed By: #### L [id number] #### [facility] ([facility]) [address] [place] [address] [id number] 2022 ALPHA-1 ANTITRYPSIN 221 mg/dL High 90-200 [facility] Comment on above: Result Comment: To c onvert to umol/L, multiply mg/dL by 0.185 Performed By: [facility] [address] [id number] Riveter Hand: Sylvester Levine MD, PhD CLIA Number: [id number] Performed By: #### L [id number] #### [facility] ([facility]) [address] [place] [address] ANAon 10-27-2022 YANI TITER <1:40 Normal <=1:40 [facility] Comment on above: Result Comment: Test performed using ALLY IFA YANI Hep-2 Test, a pre-standardized assay designed for the qualitative and semi-quantitative detection of antinuclear antibodies. Performed By: #### L [id number] #### [facility] ([facility]) [address] [place] [address] ANTI-SMOOTH MUSCLE ANTIBODY TITERon 10-27-2022 SMOOTH MUSCLE AB, IGG TITER 1:40 High <1:20 [facility] Comment on above: Result Comment: INTE RPRETIVE INFORMATION: Smooth Muscle Ab, IgG Titer Less than 1:20 ........ Negative - No antibody detected. 1:20 - 1:80 .......... Weak Positive - Suggest repeat in two to three weeks with fresh specimen. 1:160 or greater ...... Positive - Suggestive of autoimmune hepatitis or chronic active hepatitis. Performed By: [facility] [address] [place] [address] Riveter Hand: Sylvester Levine MD, PhD CLIA Number: [id number] Performed By: #### L [id number] #### [facility] ([facility]) [address] [place] [address] ANTI-SMOOTH MUSCLE ANTIBODY, IGG WITH REFLEX TO TITERon 10-27-2022 SMOOTH MUSCLE ANTIBODY 48 Units High 0-19 [facility] Comment on above: Result Comment: REFE RENCE [...] suspicion for AIH is strong. Performed by [facility], [address] [place] [address] [email or web address], Supa Roberts MD, Lab. Director CLIA Number: [id number] Performed By: #### L [id number] #### [facility] LAB (BEAKER) [address] [place] [address] BASIC METABOLIC PANELon 10-17 Anion gap [Moles/Vol] 13 mmol/L Normal 7-20 [facility] Comment on above: Performed By: #### L [id number] #### [facility] ([facility]) [address] [place] [address] Calcium [Mass/Vol] 8.5 mg/dL Low 8.6-10.3 [facility] Comment on above: Performed By: #### L [id number] #### [facility] ([facility]) [address] [place] [address] Chloride [Moles/Vol] 109 mmol/L High 98-107 [facility] Comment on above: Performed By: #### L [id number] #### [facility] ([facility]) [address] [place] [address] CO2 [Moles/Vol] 21 mmol/L Normal 21-31 [facility] Comment on above: Performed By: #### L [id number] #### [facility] ([facility]) [address] [place] [address] Creatinine [Mass/Vol] 0.92 mg/dL Normal 0.70-1.30 [facility] Comment on above: Performed By: #### L [id number] #### [facility] ([facility]) [address] [place] [address] GLOMERULAR FILTRATION RATE ML/MIN/1.73 SQ M.PREDICTED 81.5 mL/min/1.73m*2 Normal >60.0 [facility] Comment on above: Result Comment: The [facility]???s estimated glomerular filtration rate (eGFR) will no [...] individuals. Performed By: #### L [id number] #### [facility] ([facility]) [address] [place] [address] Glucose [Mass/Vol] 110 mg/dL High 70-100 [facility] Comment on above: Performed By: #### L [id number] #### [facility] ([facility]) [address] [place] [address] Potassium [Moles/Vol] 3.9 mmol/L Normal 3.5-5.1 [facility] Comment on above: Performed By: #### L [id number] #### [facility] ([facility]) [address] [place] [address] Sodium [Moles/Vol] 139 mmol/L Normal 136-145 [facility] Comment on above: Performed By: #### L [id number] #### [facility] ([facility] [address] [place] [address] Urea nitrogen [Mass/Vol] 20 mg/dL Normal 7-25 [facility] Comment on above: Performed By: #### L [id number] #### [facility] ([facility]) [address] [place] [address] UREA NITROGEN/CREATININE (MASS RATIO) IN SER/PLAS 21.7 Normal [facility] Comment on above: Performed By: #### L [id number] #### [facility] ([facility]) [address] [place] [address] C-REACTIVE PROTEINon 023 C-REACTIVE PROTEIN, SERUM 7.7 mg/dL High <=0.4 [facility] Comment on above: Result Comment: INTE RPRETIVE INFORMATION: C-Reactive Protein Significantly decreased CRP values may result in specimens from patients treated with carboxypenicillins. Performed By: [facility] [address] [place] [id number] Riveter Hand: Sylvester Levine MD, PhD CLIA Number: [id number] Performed By: #### L [id number] #### [facility] ([facility]) [address] [place] [address] CBC WITH AUTO DIFFERENTIALon 10-27-2022 Erythrocyte distribution width (RBC) [Ratio] 15.9 % High 11.5-15.0 [facility] Comment on above: Performed By: #### L [id number] #### [facility] ([facility]) [address] [place] [address] ERYTHROCYTE MEAN CORPUSCULAR HEMOGLOBIN CONCENTRATION (G/DL) BY AUTOMATED 33.9 g/dL Normal 32.0-35.0 [facility] Comment on above: Performed By: #### L [id number] #### [facility] ([facility]) [address] [place] [address] Hematocrit (Bld) [Volume fraction] 40.7 % Normal 39.0-55.0 [facility] Comment on above: Performed By: #### L [id number] #### [facility] ([facility]) [address] [place] [address] Hemoglobin (Bld) [Mass/Vol] 13.8 g/dL Normal 13.0-17.0 [facility] Comment on above: Performed By: #### L [id number] #### [facility] ([facility]) [address] [place] [address] MCH (RBC) [Entitic mass] 29.1 pg Normal 27.0-33.0 [facility] Comment on above: Performed By: #### L [id number] #### [facility] ([facility]) [address] [place] [address] MCV (RBC) [Entitic vol] 85.9 fL Normal 82.0-98.0 [facility] Comment on above: Performed By: #### L [id number] #### [facility] ([facility]) [address] [place] [address] NRBC (PER 100 WBCS) BY AUTOMATED COUNT 0.0 % Normal 0 [facility] Comment on above: Performed By: #### L [id number] #### [facility] ([facility]) [address] [place] [address] PLATELETS (10*3/UL) IN BLOOD AUTOMATED COUNT 160 10*3/uL Normal 150-400 [facility] Comment on above: Performed By: #### L [id number] #### [facility] ([facility]) [address] [place] [address] RBC (Bld) [#/Vol] 4.74 10*6/uL Normal 4.20-5.70 [facility] Comment on above: Performed By: #### L [id number] #### [facility] ([facility]) [address] [place] [address] WBC (Bld) [#/Vol] 22.06 10*3/uL High 4.00-10.60 [facility] Comment on above: Performed By: #### L [id number] #### [facility] [address] [place] [address] CONSULTon 10-27-2022 CONSULT ---- -------- Attestation signed by Mary Ellen Sanchez MD at 10/28/2022 3:28 PM I personally saw and examined the patient on the same date of service as fellow. I discussed the findings and therapeutic plan with the fellow. I agree with the documentation, except for any edits/updates below. 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 Accepted by [facility]. Just arrived as a transfer now. [...] biliary ductal dilation. Patient was transferred to [facility] for GI evaluation. GI HISTORY SUMMARY TABLE Last EGD Last colonoscopy Primary GI physician PAST MEDICAL, SURGICAL, FAMILY, and SOCIAL HISTORY Past Medical History: Diagnosis Date Alcohol abuse, in remission Coronary artery disease GERD (gastroesophageal reflux disease) HLD (hyperlipidemia) Hypertension [place] (myocardial infarction) ([facility]) Past Surgical History: Procedure Laterality Date CTA [...] mouth in the morning. 06/10/22 07/10/22 Sanjay eHctor MD montelukast (Singulair) 10 mg tablet Take 10 mg by mouth at bedtime. 03/05/22 Historical Provider, ajvdepzu-lalqblgno-JO (Cortisporin) 3.5-10,000-10 mg-unit-mg/mL ophthalmic suspension Administer 4 drops into both eyes every 6 (six) hours. Historical Provider, nitroglycerin (NitrolinguaL) 400 mc (more content not included)... Normal [facility] FERRITINon 10-27-2022 FERRITIN (NG/ML) IN SER/PLAS 211.0 ng/mL Normal 24.0-336.0 [facility] Comment on above: Performed By: #### L [id number] #### [facility] ([facility]) [address] [place] [address] HEPATIC FUNCTION PANELon Albumin [Mass/Vol] 3.1 g/dL Low 3.5-5.7 [facility] Comment on above: Performed By: #### L [id number] #### [facility] ([facility]) [address] [place] [address] ALP [Catalytic activity/Vol] 210 U/L High 34-104 [facility] Comment on above: Performed By: #### L [id number] #### [facility] ([facility]) [address] [place] [address] ALT [Catalytic activity/Vol] 72 U/L High 7-52 [facility] Comment on above: Performed By: #### L [id number] #### [facility] ([facility]) [address] [place] [address] AST [Catalytic activity/Vol] 39 U/L Normal 13-39 [facility] Comment on above: Performed By: #### L [id number] #### [facility] ([facility]) [address] [place] [address] Bilirubin [Mass/Vol] 0.9 mg/dL Normal 0.3-1.0 [facility] Comment on above: Performed By: #### L [id number] #### [facility] ([facility]) [address] [place] [address] Magnesium [Mass/Vol] 0.3 mg/dL High 0-0.2 [facility] Comment on above: Performed By: #### L [id number] #### [facility] ([facility]) [address] [place] [address] Protein [Mass/Vol] 7.2 g/dL Normal 6.0-8.3 [facility] Comment on above: Performed By: #### L [id number] #### [facility] ([facility]) [address] [place] [address] HEPATITIS PANEL, ACUTEon HEPATITIS A VIRUS IGM AB PRESENCE IN SER/PLAS Indeterminate Abnormal Nonreactive [facility] Comment on above: Order Comment: Patie nts with specimens exhibiting indeterminate test results should be retested at approximately one-week intervals. Performed By: #### L [id number] #### [facility] ([facility]) [address] [place] [address] HEPATITIS B VIRUS CORE AB (PRESENCE) IN SER/PLAS BY IMM Non-Reactive Normal Nonreactive [facility] Comment on above: Order Comment: Patie nts with specimens exhibiting indeterminate test results should be retested at approximately one-week intervals. Performed By: #### L [id number] #### [facility] ([facility]) [address] [place] [address] HEPATITIS B VIRUS SURFACE AG PRESENCE IN SERUM Non-Reactive Normal Nonreactive [facility] Comment on above: Order Comment: Patie nts with specimens exhibiting indeterminate test results should be retested at approximately one-week intervals. Performed By: #### L [id number] #### [facility] ([facility] [address] [place] [address] HEPATITIS C VIRUS AB PRESENCE IN SERUM Non-Reactive Normal Nonreactive [facility] Comment on above: Order Comment: Patie nts with specimens exhibiting indeterminate test results should be retested at approximately one-week intervals. Performed By: #### L [id number] #### [facility] ([facility]) [address] [place] [address] IRON AND TIBCon 10-27-2022 IRON (UG/DL) IN SER/PLAS 85 ug/dL Normal 50-212 [facility] Comment on above: Performed By: #### L [id number] #### [facility] ([facility]) [address] [place] [address] IRON BINDING CAPACITY (UG/DL) IN SER/PLAS 215 ug/dL Low 250-450 [facility] Comment on above: Performed By: #### L [id number] #### [facility] ([facility]) [address] [place] [address] IRON BINDING CAPACITY.UNSATURATE D (UG/DL) IN SER/PLAS 130.0 ug/dL Low 155.0-355.0 [facility] Comment on above: Performed By: #### L [id number] #### [facility] [address] [place] [address] IRON SATURATION (%) IN SER/PLAS 40 % Normal 20-50 [facility] Comment on above: Performed By: #### L [id number] #### [facility] ([facility]) [address] [place] [address] IRON (UG/DL) IN SER/PLAS 105 ug/dL Normal 50-212 [facility] Comment on above: Performed By: #### L [id number] #### [facility] ([facility]) [address] [place] [address] IRON BINDING CAPACITY (UG/DL) IN SER/PLAS 214 ug/dL Low 250-450 [facility] Comment on above: Performed By: #### L [id number] #### [facility] [address] [place] [address] IRON BINDING CAPACITY.UNSATURATE D (UG/DL) IN SER/PLAS 109.0 ug/dL Low 155.0-355.0 [facility] Comment on above: Performed By: #### L [id number] #### [facility] ([facility]) [address] [place] [address] IRON SATURATION (%) IN SER/PLAS 49 % Normal 20-50 [facility] Comment on above: Performed By: #### L [id number] #### [facility] [address] [place] [address] LACTATE DEHYDROGENASEon 10-17 LACTATE DEHYDROGENASE (U/L) IN SER/PLAS BY LAC->PYR RXN 334 U/L High 140-271 [facility] Comment on above: Performed By: #### L [id number] #### [facility] ([facility] [address] [place] [address] LIVER FIBROSIS CHRONIC VIRAL HEPATITISon 10-27-2022 [id number] IN, FIBROMETER 273 mg/dL Normal 131-293 [facility] Comment on above: Performed By: #### L [id number] #### [facility] ([facility]) [address] [place] [address] ALT [Catalytic activity/Vol] 93 U/L High 5-50 [facility] Comment on above: Performed By: #### L [id number] #### [facility] ([facility]) [address] [place] [address] Amylase [Catalytic activity/Vol] 137 U/L High 7-51 [facility] Comment on above: Performed By: #### L [id number] #### [facility] ([facility]) [address] [place] [address] AST [Catalytic activity/Vol] 45 U/L Normal 9-50 [facility] Comment on above: Performed By: #### L [id number] #### [facility] ([facility]) [address] [place] [address] CIRRHOMETER PATIENT SCORE 0.55 Normal [facility] Comment on above: Performed By: #### L [id number] #### [facility] ([facility]) [address] [place] [address] EER FIBROMETER REPORT See Note Normal [facility] Comment on above: Result Comment: Auth orized individuals can access the [facility] Enhanced Report using the following link: [email or web address] Performed By: #### L [id number] #### [facility] ([facility] [address] [place] [address] FIBROMETER INTERPRETATION See Report Normal [facility] Comment on above: Result Comment: [13] [17] INTERPRETIVE INFORMATION: Fibrometer Interpretation Calculations for the final report are based on accurate data for age, gender, and platelet count. If any of this information needs to be corrected, please contact [facility] Client Services to request a recalculation. Client Services may be contacted at . The [employer] FibroMeter profile serves as a surrogate marker [...] developed and its performance characteristics determined by [facility]. It has not been cleared or approved by the [place] Food and Drug Administration. This test was performed in a CLIA certified laboratory and is intended for clinical purposes. Performed By: [facility] [address] [place] [address] Riveter Hand: Sylvester Levine MD, PhD CLIA Number: [id number] Performed By: #### L [id number] #### [facility] ([facility]) [address] [place] [address] FIBROMETER PATIENT SCORE 0.93 Normal [facility] Comment on above: Performed By: #### L [id number] #### [facility] ([facility]) [address] [place] [address] FIBROMETER PLATELET COUNT 290 k/uL Normal [facility] Comment on above: Performed By: #### L [id number] #### [facility] ([facility]) [address] [place] [address] FIBROMETER PROTHROMBIN INDEX 62 % Low 90-120 [facility] Comment on above: Performed By: #### L [id number] #### [facility] ([facility]) [address] [place] [address] FIBROSIS METAVIR CLASSIFICATION F4[F3-F4] Normal [facility] Comment on above: Result Comment: INTE RPRETIVE [...] F3 is possible Performed By: #### L [id number] #### [facility] ([facility]) [address] [place] [id number] INFLAMETER METAVIR CLASSIFICATION A1/A2 Normal [facility] Comment on above: Result Comment: INTE RPRETIVE INFORMATION: InflaMeter Metavir Classification InflaMeter (activity score) comments A0/A1 Equal probability between A0 and A1 A1/A2 Equal probability between A1 and A2 A2/A3 Equal probability between A2 and A3 Performed By: #### L [id number] #### [facility] (BEAKER) [address] [place] [address] INFLAMETER PATIENT SCORE 0.66 Normal [facility] Comment on above: Performed By: #### L [id number] #### [facility] ([facility]ER) [address] [place] [address] Urea nitrogen [Mass/Vol] 20 mg/dL Normal 7-20 [facility] Comment on above: Performed By: #### L [id number] #### [facility] ([facility]) [address] [place] [address] MANUAL DIFFERENTIALon 2022 ANISOCYTOSIS PRESENCE IN BLOOD BY LIGHT MICROSCOPY Slight Normal [facility] Comment on above: Performed By: #### L [id number] #### [facility] ([facility]) [address] [place] [address] BASOPHILS (10*3/UL) IN BLOOD BY CALCULATION 0.02 10*3/uL Normal 0.00-0.20 [facility] Comment on above: Performed By: #### L [id number] #### [facility] ([facility]) [address] [place] [address] BASOPHILS/100 LEUKOCYTES IN BLOOD BY AUTOMATED COUNT 0.1 % Normal 0.0-1.0 [facility] Comment on above: Performed By: #### L [id number] #### [facility] ([facility]) [address] [place] [address] CESILIA CELLS PRESENCE IN BLOOD BY LIGHT MICROSCOPY Moderate Normal [facility] Comment on above: Performed By: #### L [id number] #### [facility] ([facility]) [address] [place] [address] EOSINOPHILS (10*3/UL) IN BLOOD BY CALCULATION 0.07 10*3/uL Normal 0.00-0.50 [facility] Comment on above: Performed By: #### L [id number] #### [facility] ([facility]) [address] [place] [address] EOSINOPHILS/100 LEUKOCYTES IN BLOOD BY AUTOMATED COUNT 0.3 % Normal 0.0-6.0 [facility] Comment on above: Performed By: #### L [id number] #### [facility] ([facility]) [address] [place] [address] IMMATURE GRANULOCYTES (10*3/UL) IN BLOOD BY CALCULATION 0.71 10*3/uL High 0.00-0.20 [facility] Comment on above: Performed By: #### L [id number] #### [facility] ([facility]) [address] [place] [address] IMMATURE GRANULOCYTES/100 LEUKOCYTES IN BLOOD BY AUTOMATED COUNT 3.2 % High 0.0-1.0 [facility] Comment on above: Performed By: #### L [id number] #### [facility] ([facility]) [address] [place] [address] LYMPHOCYTES (10*3/UL) IN BLOOD BY CALCULATION 2.29 10*3/uL Normal 1.20-4.00 [facility] Comment on above: Performed By: #### L [id number] #### [facility] ([facility]) [address] [place] [address] LYMPHOCYTES/100 LEUKOCYTES IN BLOOD BY AUTOMATED COUNT 10.4 % Low 20.0-45.0 [facility] Comment on above: Performed By: #### L [id number] #### [facility] ([facility]) [address] [place] [address] MONOCYTES (10*3/UL) IN BLOOD BY CALCUATION 0.93 10*3/uL Normal 0.10-1.00 [facility] Comment on above: Performed By: #### L [id number] #### [facility] ([facility]) [address] [place] [address] MONOCYTES/100 LEUKOCYTES IN BLOOD BY AUTOMATED COUNT 4.2 % Low 5.0-12.0 [facility] Comment on above: Performed By: #### L [id number] #### [facility] ([facility]) [address] [place] [address] NEUTROPHILS (10*3/UL) IN BLOOD BY CALCULATION 18.0 10*3/uL High 1.6-7.6 [facility] Comment on above: Performed By: #### L [id number] #### [facility] ([facility]) [address] [place] [address] NEUTROPHILS/100 LEUKOCYTES IN BLOOD BY AUTOMATED COUNT 81.8 % High 40.0-72.0 [facility] Comment on above: Performed By: #### L [id number] #### [facility] ([facility]) [address] [place] [address] OVALOCYTES PRESENCE IN BLOOD BY LIGHT MICROSCOPY Slight Normal [facility] Comment on above: Performed By: #### L [id number] #### [facility] ([facility]) [address] [place] [address] POIKILOCYTOSIS (PRESENCE) IN BLOOD BY LIGHT MICROSCOPY Moderate Normal [facility] Comment on above: Performed By: #### L [id number] #### [facility] ([facility]) [address] [place] [address] POLYCHROMASIA IN BLOOD BY LIGHT MICROSCOPY Slight Normal [facility] Comment on above: Performed By: #### L [id number] #### [facility] ([facility]) [address] [place] [address] TARGET CELLS IN BLOOD BY LIGHT MICROSCOPY Slight Normal [facility] Comment on above: Performed By: #### L [id number] #### [facility] ([facility]) [address] [place] [address] MITOCHONDRIAL ANTIBODIES, M2 on 10-27-2022 MITOCHONDRIAL M2 ANTIBODY 6.1 Units Normal 0.0-24.9 [facility] Comment on above: Result Comment: REFE RENCE [...] does not rule out PBC. Performed By: [facility] [address] [place] [address] Riveter Hand: Sylvester Levine MD, PhD CLIA Number: [id number] Performed By: #### L [id number] #### [facility] ([facility]AKER) [address] [place] [address] PATHOLOGY REVIEWon PATHOLOGY REVIEW Reviewed. Normal [facility] Comment on above: Result Comment: Elec tronically signed by Zain Conn MD on 10/28/22 at 8:17 AM. Performed By: #### L [id number] #### [facility] ([facility]) [address] [place] [address] PROTIME-INRon 10-27-2022 INR IN PPP BY COAGULATION ASSAY 1.25 High 0.90-1.10 [facility] Comment on above: Result Comment: [facility] FOR WARFARIN THERAPY [...] 1995;[id number]. Performed By: #### L [id number] #### [facility] ([facility]) [address] [place] [address] PROTHROMBIN TIME (PT) IN PPP BY COAGULATION ASSAY 15.7 Seconds High 12.3-14.8 [facility] Comment on above: Performed By: #### L [id number] #### [facility] ([facility]) [address] [place] [address] RPRon 10-27-2022 REAGIN AB PRESENCE IN SERUM BY RPR Non-Reactive Normal Nonreactive [facility] Comment on above: Performed By: #### L [id number] #### [facility] ([facility]) [address] [place] [address] SEDIMENTATION RATEon 023 SEDIMENTATION RATE, ERYTHROCYTE 60 mm/hr High <=10 [facility] Comment on above: Performed By: #### L AB68 #### [facility] ([facility]) [address] [place] [address] TISSUE TRANSGLUTAMINASE, IGA on 10-27-2022 TISSUE TRANSGLUTAMINASE, IGA 3 U/mL Normal 0-3 [facility] Comment on above: Result Comment: INTE RPRETIVE [...] positive predictive value for disease. Performed By: [facility] [address] [place] [id number] Riveter Hand: Sylvester Levine MD, PhD CLIA Number: [id number] Performed By: #### L AB96 #### [facility] ([facility]) [address] [place] [address] TSH3 REFLEX TO FT4on 023 THYROTROPIN (MIU/L) IN SER/PLAS BY DETECTION LIMIT <= 0.05 MIU/L 0.91 mIU/L Normal 0.34-5.60 [facility] Comment on above: Performed By: #### L AB96 #### [facility] ([facility]) [address] [place] [address] VITAMIN B12on 10-27-2022 Cobalamin (Vitamin B12) [Mass/Vol] 1187 pg/mL High 180-914 [facility] Comment on above: Result Comment: REFE RENCE RANGES: 180-914 pg/mL Normal 145-179 pg/mL Indeterminate <145 pg/mL Deficient Performed By: #### L AB68 #### [facility] ([facility]) [address] [place] [address] ECHOCARDIO M/2D COMPLETEon 0 06-25-2022 ECHOCARDIO M/2D COMPLETE Patient Name Site Name DC RASMUSSEN [facility] Account No Medical Record Number Age Sex Date Time [id number] [facility]:[id number] M 06/25/2022 08:09 At the Request [...] Hector M.D. on 06/25/2022 at 18:06 Normal [facility] Physician Referralon 023 Physician Referral [id number]: 127 Normal [facility] Ambulatory Visit Summaryon 0 05-22-2022 Ambulatory Visit [...] 40 mg Tab) ipratropium nasal (Atrovent 0.03% Aurora) levalbuterol (levalbuterol 1.25 mg/0.5 mL Concentrate) metoprolol (metoprolol 100 mg ER Tab) montelukast (Singulair 10 mg Tab) multivitamin (Vitamin B Complex oral capsule) nitroglycerin (nitroglycerin 0.4 mg SubL [place]) pantoprazole (Protonix 40 mg Tab-DR) potassium chloride (Potassium Chloride (Vwn-Pnks-Otw 10)) tamsulosin (Flomax 0.4 mg Cap) zolpidem [...] ALE FAN PA-C Where: [facility] Patient Educationon 05-23-19 Patient Education [...] Follow these instructions at home: ? Take orwz-xau-swtwmel and prescription medicines only as told by [...] You d (more content not included)... Normal [facility] Urology Office/Clinic Noteon 05-22-2022 Urology Office/Clinic Note [...] Contact Information MEGHAN HAWKINS, ALE Reed, URL [address] [place] [address] Additional Instructions: 6 mos no labs Patient [...] 20 mg Tab, Oral, Daily Atrovent 0.03% Aurora, 2 spray(s), Nasal, TID Benadryl 25 mg Cap, Oral, q6hr cetirizine 10 mg Tab, Oral, Daily Cipro 500 mg Tab, See Instructions, Not taking diazepam 5 mg Tab, Oral, q8hr Flomax 0.4 mg Cap, Oral, Daily Lasix 40 mg Tab, Oral, Daily levalbuterol 1.25 mg/0.5 mL Concentrate, NEB, TID metoprolol 100 mg ER Tab, Oral, Daily nitroglycerin 0.4 mg SubL [place], SubLingual, q5min Potassium Chloride (Evm-Bbvq-Hhi 10), Oral, BID Protonix 40 mg Tab-DR, [...] Father. Congenital (more content not included)... Normal [facility] Comment on above: Result Comment: Elec tronically Signed By: MEGHAN HAWKINSALE\.br\Date and Time Signed: 05/22/22 14:54 EDT\.br\Electronically Co-Signed By: Kayli Rodriguez\.br\Date and Time Co-Signed: 05/22/22 14:50 EDT Consent for Procedure/Surger loydn 03-25-2022 Consent for Procedure/Surgery [id number]: 127 Normal [facility] Ambulatory Visit Summaryon 0 03-24-2022 Ambulatory Visit [...] 40 mg Tab) ipratropium nasal (Atrovent 0.03% Aurora) levalbuterol (levalbuterol 1.25 mg/0.5 mL Concentrate) metoprolol (metoprolol 100 mg ER Tab) montelukast (Singulair 10 mg Tab) multivitamin (Vitamin B Complex oral capsule) nitroglycerin (nitroglycerin 0.4 mg SubL [place]) pantoprazole (Protonix 40 mg Tab-DR) potassium chloride (Potassium Chloride (Fni-Wqlo-Wga 10)) tamsulosin (Flomax 0.4 mg Cap) zolpidem [...] ALE FAN PA-C [facility] Patient Education[facility] 03-24-19 Patient Education Urology [...] Follow these instructions at home: ? Take ljpv-lnf-xwheqbp and prescription medicines only as told by [...] d (more content not included)... Normal [facility] Urology Office/Clinic Noteon 03-24-2022 Urology Office/Clinic [...] MD, URL [address] [address]- Additional Instructions: f/u 6 weeks [...] Incomplete edgar (more content not included)... Normal [facility] Comment on above: Result Comment: Elec tronically Signed By: Papa REYNA MD\.br\Date and Time Signed: 03/24/22 07:54 EST\.br\Electronically Co-Signed By: Kayli Rodriguez\.br\Date and Time Co-Signed: 03/24/22 07:48 EST [facility] 03-11-2022 Forms [id number] :127 Normal [facility] Physician Referralon 023 Physician Referral [id number]: 127 Normal [facility] Screenson 03-11-2022 Screens [id number] :127 [facility] Urology Office/Clinic Noteon 03-07-2022 Urology Office/Clinic Note [...] not new. Pt under care of a order tracer. FORD, not new, stable. Lasix controls swelling [...] like to proceed w/ Cysto/possible UD. Prefers [place] office for Cysto. 2. BPH (benign prostatic [...] Urnls Dip Stick Auto w/o Microscopy POC 87717 3. Incomplete bladder emptying (R33.9: Retention of [...] body fro (more content not included)... Normal [facility] Comment on above: Result Comment: Elec tronically Signed By: Akbar Judge\.br\Date and Time Signed: 03/07/22 20:24 EST Ambulatory Visit Summaryon 0 03-05-2022 Ambulatory Visit Summary DC RASMUSSEN :1935 Visit Date:03/05/2022 Ambulatory Visit Instructions Your Diagnosis BPH (benign prostatic hyperplasia) Split urinary stream Tests Performed Urnls Dip Stick Auto w/o Microscopy POC 03783 Your Care Team Attending Physician - Akbar [...] 40 mg Tab) ipratropium nasal (Atrovent 0.03% Aurora) levalbuterol (levalbuterol 1.25 mg/0.5 mL Concentrate) metoprolol (metoprolol 100 mg ER Tab) montelukast (Singulair 10 mg Tab) multivitamin (Vitamin B Complex oral capsule) nitroglycerin (nitroglycerin 0.4 mg SubL [place]) pantoprazole (Protonix 40 mg Tab-DR) potassium chloride (Potassium Chloride (Iuy-Npey-Svl 10)) tamsulosin (Flomax 0.4 mg Cap) zolpidem [...] Every day Unchanged ipratropium nasal (Atrovent 0.03% Aurora) 2 Sprays Nasal Inhalation 3 times a day Unchanged levalbuterol (levalbuterol 1.25 mg/ 0.5 mL Concentrate) Nebulized inhalation (aerosol) 3 times a day Unchanged metoprolol (metoprolol 100 mg ER Tab) By Mouth Every day Unchanged montelukast (Singulair 10 mg Tab) By Mouth Every day Unchanged multivitamin (Vitamin B Complex oral capsule) By Mouth Every day Unchanged nitroglycerin (nitroglycerin 0.4 mg SubL [place]) Sublingual Every 5 minutes Unchanged pantoprazole (Protonix 40 mg Tab-DR) By Mouth Every day Unchanged potassium chloride (Potassium Chloride (Rns-Lwir-Kip 10)) By Mouth 2 times a day Unchanged tamsulosin (Flomax 0.4 mg Cap) By Mouth Every day Unchanged zolpidem (Ambien 10 mg Tab) 1 Tablets By Mouth Once a day (at bedtime) as needed for for sleep Test Results Urnls Dip Stick Auto w/o Microscopy POC 55269 (03/05/2022) Bilirubin Urine Dipstick - Negative Blood Urine Dipstick - Negative Glucose Urine Dipstick - Negative Ketones Urine Dipstick - Negative Leukocytes Urine Dipstick - 1+ Small Nitrite Urine Dipstick - Negative Protein Urine Dipstick - Negative Specific [place] Urine Dipstick - 1.025 Urine Appearance Urine [...] receiving treatment for. Angina at rest Normal [facility] Covid-19 PCR (CVDTB)on 10-18 SARS-CoV-2 (COVID-19) RNA KAY+probe Ql (Unsp spec) Detected Critically abnormal NOT DETECTED [facility] Comment on above: Result Comment: This test is not yet approved or cleared by the [place] FDA. When there are no FDA-approved or cleared tests available, and other criteria are met, FDA can make tests available under an emergency access mechanism called an Emergency Use Authorization (EUA). The EUA for this test is supported by the Seanor of Health and Human Service's (HHS's) declaration [...] used). Performed By: #### C VDTB #### [facility] [address] [place], [place] [address] Dr. Venkat [facility] Metabolic [facility] 04-15-2021 Albumin [Mass/Vol] 4.5 g/dL Normal 3.6-5.1 Jermain mario [place] [employer] [facility] Comment on above: Performed By: #### C MP, LIPD, TSH reflex FT4 #### [facility] [address] [place], [place] [id number] Albumin/Globulin [Mass ratio] 2.1 {ratio} Normal 1.0-2.5 [facility] [employer] Comment on above: Performed By: #### C MP, LIPD, TSH reflex FT4 #### [facility] [address] [place], [place] [id number] ALP [Catalytic activity/Vol] 328 U/L High 40-129 [facility] Comment on above: Performed By: #### C MP, LIPD, TSH reflex FT4 #### [facility] [address] [place], [place] [id number] ALT [Catalytic activity/Vol] 104 U/L High 9-46 [facility] Comment on above: Result Comment: 01/16 Female reference range changed. Performed By: #### C MP, LIPD, TSH reflex FT4 #### [facility] [address] [place], [place] [id number] Anion gap [Moles/Vol] 22 mmol/L High 12-20 [facility] Comment on above: Result Comment: Effe ctive 02/21/2019 reference range changed. Performed By: #### C MP, LIPD, TSH reflex FT4 #### [facility] [address] [place], [place] [id number] AST [Catalytic activity/Vol] 86 U/L High 10-40 [facility] Comment on above: Result Comment: Spec imen is hemolyzed. Results may be affected. Performed By: #### C MP, LIPD, TSH reflex FT4 #### [facility] [address] [place], [place] [id number] Bilirubin [Mass/Vol] 0.46 mg/dL Normal 0.30-1.20 [facility] Comment on above: Performed By: #### C MP, LIPD, TSH reflex FT4 #### [facility] [address] [place], [place] [id number] BUN/CREA 17 Ratio Normal 6-22 [facility] Comment on above: Performed By: #### C MP, LIPD, TSH reflex FT4 #### [facility] [address] [place], [place] [id number] Calcium [Mass/Vol] 9.5 mg/dL Normal 8.6-10.2 [facility] Comment on above: Performed By: #### C MP, LIPD, TSH reflex FT4 #### [facility] [address] [place], [place] [id number] Chloride [Moles/Vol] 106 mmol/L Normal 98-107 [facility] [place] [facility] Comment on above: Performed By: #### C MP, LIPD, TSH reflex FT4 #### [facility] [address] [place], [place] [id number] CO2 [Moles/Vol] 20 mmol/L Normal 20-31 [facility] [place] [facility] Comment on above: Performed By: #### C MP, LIPD, TSH reflex FT4 #### [facility] [address] [place], [place] [id number] Creatinine [Mass/Vol] 1.0 mg/dL Normal 0.7-1.4 [facility] [place] [facility] Comment on above: Performed By: #### C MP, LIPD, TSH reflex FT4 #### [facility] [address] [place], [place] [id number] eGFRAA 86 mL/min/1.73m2 Normal >60 [facility] [place] [facility] Comment on above: Performed By: #### C MP, LIPD, TSH reflex FT4 #### [facility] [address] [place], [place] [id number] eGFRNAA 71 mL/min/1.73m2 Normal >60 [facility] [place] [facility] Comment on above: Performed By: #### C MP, LIPD, TSH reflex FT4 #### [facility] [address] [place], [place] [id number] Globulin (S) [Mass/Vol] 2.1 g/dL Normal 1.9-3.7 [facility] [place] [facility] Comment on above: Performed By: #### C MP, LIPD, TSH reflex FT4 #### [facility] [address] [place], [place] [id number] Glucose [Mass/Vol] 92 mg/dL Normal 65-99 [facility] Comment on above: Result Comment: For FASTING Glucose --- ADA reference ranges: Normal 65-99 mg/dl Prediabetes 100-125 Diabetes >/= 126 Performed By: #### C MP, LIPD, TSH reflex FT4 #### [facility] [address] [place], [place] [id number] Potassium [Moles/Vol] 5.0 mmol/L Normal 3.5-5.5 [facility] [place] [facility] Comment on above: Result Comment: Spec imen is hemolyzed. Results may be affected. Performed By: #### C MP, LIPD, TSH reflex FT4 #### [facility] [address] [place], [place] [id number] Protein [Mass/Vol] 6.6 g/dL Normal 6.1-8.1 [facility] Comment on above: Performed By: #### C MP, LIPD, TSH reflex FT4 #### [facility] [address] [place], [place] [id number] Sodium [Moles/Vol] 142 mmol/L Normal 135-146 [facility] [employer] Comment on above: Performed By: #### C MP, LIPD, TSH reflex FT4 #### [facility] [address] [place], [place] [id number] Urea nitrogen [Mass/Vol] 17 mg/dL Normal 7-25 [facility] [place] [facility] Comment on above: Performed By: #### C MP, LIPD, TSH reflex FT4 #### [facility] [address] [place], [place] [id number] Lipid Panelon 04-15-2021 Cholesterol [Mass/Vol] 164 mg/dL Normal 125-200 [facility] [place] [facility] Comment on above: Result Comment: Low risk < 200mg/dL Borderline risk 201-239 mg/dl High risk > or equal to 240 Performed By: #### C MP, LIPD, TSH reflex FT4 #### [facility] [address] [place], [place] [id number] Cholesterol in HDL [Mass/Vol] 49 mg/dL Normal >40 [facility] [place] [facility] Comment on above: Result Comment: High Cardiovascular Risk HDL <40 mg/dL Low Cardiovascular Risk HDL > or equal to 60 mg/dl Performed By: #### C MP, LIPD, TSH reflex FT4 #### [facility] [address] [place], [place] [id number] Cholesterol in LDL [Mass/Vol] 95 mg/dL Normal [facility] Comment on above: Result Comment: LDL ATP III CLASSIFICATION LDL less than 100 mg/dl Optimal LDL 100-129 mg/dl Near or above optimal LDL 130-159 Borderline high LDL 160-189 High LDL greater than 189 mg/dl Very High Performed By: #### C MP, LIPD, TSH reflex FT4 #### [facility] [address] [place], [place] [id number] Cholesterol in VLDL [Mass/Vol] 20 mg/dL Normal [facility] [employer] Comment on above: Performed By: #### C MP, LIPD, TSH reflex FT4 #### [facility] [address] [place], [place] [id number] Cholesterol.total/C holesterol in HDL [Mass ratio] 3 {ratio} Normal [facility] [employer] Comment on above: Performed By: #### C MP, LIPD, TSH reflex FT4 #### [facility] [address] [place], [place] [id number] Triglyceride [Mass/Vol] 99 mg/dL Normal 30-150 [facility] [employer] Comment on above: Result Comment: TRIG ATPIII CLASSIFICATIONS TRIG less than 150 mg/dl Normal TRIG 150-199 mg/dl Borderline High TRIG 200-500 mg/dl High TRIG greather than 500 mg/dl Very High Performed By: #### C MP, LIPD, TSH reflex FT4 #### [facility] [address] [id number] TSH w/ Reflex to Free T4on 0 04-15-2021 TSH 2.400 uIU/mL Normal 0.400-4.500 [facility] [employer] Comment on above: Performed By: #### C MP, LIPD, TSH reflex FT4 #### [facility] [address] [place], [place] [id number] CHEST AND LATERALon 09-26-19 20 CHEST AND LATERAL [facility] Department of Radiology [address] [place] [id number] == Patient Name: DC RASMUSSEN : 1935 Sex: M Age: Race: White Pt. Location: Patient Status: O Ordered Date: 09/26/2019 12:25:00 PM Completed Date: 09/26/2019 12:56 PM Requesting Provider: JAUN MAYFIELD Attending Provider: JAUN MAYFIELD Report Copy To: NOLAN BAUTISTA Signs & Symptoms: J44.9 Chronic obstructive pulmonary disease, unspecified I10 History: [place] Comments: , , , Ordering Provider - [...] effusions. Electronically signed: Zain Stanton. Transcribed by: [email or web address], User Resident: Electronically Signed by: ZAIN STANTON @ 09/26/2019 03:09 PM Normal [facility] Comment on above: Order Comment: , , = ========= , Ordering Provider - [facility] MAYFIELD [facility] Letter MohanEsthelasonali [facility] Trinh MD [id number] [facility] [address]Lfdu: [phone] Iemkzz Barry, MD[address] [place] [address] Dr. Oglesby,Thank you for referring Mr. Rasmussen [...] early in 2016.He was seen by a plate drying machine tender and underwent a skin biopsy and was [...] primary physician, and skinbiopsy results from the plate drying machine tender.I agree with the current plan to reintroduce medications every 4-6 weeks astolerated and as clinically appropriateI would like to recheck a CBC with differential to see where the eosinophilcount is today. We discussed doing when here at the [facility] but thepatient would like to have his [...] Trinh MD?This note was partially generated using Curves voice recognition system, andthere may be some incorrect words, spellings, and punctuation that were notnoted in checking the note before saving.???Sincerely,Sweta Trinh MD(Signed electronically to expedite processing) Normal [facility] CNCO Letter TextNosonali hoskins Trinh MD [id number] [facility] [address]Vdlx: [phone] Hpgdzr 2016Nolan Bautista MD[address] [place] [address] Bautista,Thank you for referring Mr. Rasmussen [...] early in 2016.He was seen by a plate drying machine tender and underwent a skin biopsy and was [...] primary physician, and skinbiopsy results from the plate drying machine tender.I agree with the current plan to reintroduce medications every 4-6 weeks astolerated and as clinically appropriateI would like to recheck a CBC with differential to see where the eosinophilcount is today. We discussed doing when here at the [facility] but thepatient would like to have his [...] will follow-up as needed?Jose Trinh MD Normal [facility] CNOVon 09-29-2016 CNOV Office Visit ([facility]) ESTHELA RASMUSSENOOD ([id number]) 1935 MDate Time Provider Department09/29/16 1:30 PM [...] early in 2016.He was seen by a plate drying machine tender and underwent a skin biopsy and was [...] primary physician, and skinbiopsy results from the plate drying machine tender.I agree with the current plan to reintroduce medications every 4-6 weeks astolerated and as clinically appropriateI would like to recheck a CBC with differential to see where the eosinophilcount is today. We discussed doing when here at the [facility] but thepatient would like to have his [...] Trinh MDThis note was partially generated using Curves voice recognition system, andthere may be some incorrect words, spellings, and punctuation that were notnoted in checking the note before saving.?Referring Provider: NOLAN BAUTISTA II [[id number]]Allergies As of Date: 09/29/2016 Noted Allergy ReactionALBUTEROL [...] by JOSE TRINH MD on 10/07/16 Normal [facility] PROGRESSon 09-29-2016 PROGRESS HNO ID: [id number]: Jose Reeder: (none)Author Type: PhysicianType: Progress NotesFiled: [...] early in 2016.He was seen by a plate drying machine tender and underwent a skin biopsy and was [...] primary physician, andskin biopsy results from the plate drying machine tender.I agree with the current plan to reintroduce medications every 4-6 weeksas tolerated and as clinically appropriateI would like to recheck a CBC with differential to see where theeosinophil count is today. We discussed doing when here at the [facility] but the patient would like to [...] Trinh MDThis note was partially generated using Curves voice recognition system,and there may be some incorrect words, spellings, and punctuation thatwere not noted in checking the note before saving.? Normal [facility] Vital Signs Date Time Vital Sign Value Performing Clinician Abena bales 03-05-2022 14:39-0500 Blood Pressure Location [facility] 03-05-2022 14:39-0500 Diastolic blood pressure 80 mm[Hg] Akbar [place] [facility] 03-05-2022 14:39-0500 Heart rate 74 /min [facility] 03-05-2022 14:39-0500 Systolic blood pressure 151 mm[Hg] [facility] Encounters Encounter Date Encounter Type Care Provider Facility Start: 09-07-2023 End: 09-07-2023 ambulatory RODRIGUEZ QUINONES Not Available Start: 07-15-2023 End: 07-15-2023 ambulatory [facility] Start: 06-01-2023 End: 06-01-2023 ambulatory NOLAN BAUTISTA Not Available Start: 05-05-2023 End: 05-05-2023 ambulatory VENECIA BROWNLEE Not Available Start: 03-05-2023 ambulatory ALE FAN Facili ty:[facility] Start: 03-05-2023 End: 03-05-2023 Patient encounter procedure ALE FAN [facility] Start: 02-19-2023 End: 02-19-2023 ambulatory NOLAN BAUTISTA Not Available Start: 01-06-2023 End: 01-06-2023 ambulatory [facility] Start: 11-21-2022 End: 11-21-2022 ambulatory [facility] Start: 10-31-2022 Evaluation and management of inpatient DEIDRE ENIX [facility] Start: 10-28-2022 Evaluation and management of inpatient JENN SHANE [facility] Start: 10-28-2022 Evaluation and management of inpatient FABIANO BRODY [facility] Start: 10-28-2022 ambulatory ALE FAN Facility :[facility] Start: 10-27-2022 End: 10-31-2022 Evaluation and management of inpatient BUD HOY [facility] Start: 06-25-2022 End: 06-26-[address] DOCTOR MONTEMAYOR Facility:[facility] Start: 05-22-2022 End: 05-23-2022 ambulatory ALE FAN Facility:[facility] Start: 03-24-2022 End: 03-25-2022 ambulatory Papa REYNA Facility:[facility] [place] Start: 03-24-2022 End: 03-24-2022 Patient encounter procedure Papa REYNA [facility] [place] Start: 03-05-2022 End: 03-06-2022 ambulatory Akbar Ugalde Facility:[facility] [place] Start: 03-05-2022 End: 03-05-2022 Patient encounter procedure Akbar Ugalde [facility] [place] Start: 01-23-2022 ambulatory ALE FAN Facility :[facility] [place] Start: 11-11-2021 End: 11-11-[address] NOLAN BAUTISTA Facility:[facility] Start: 09-29-2016 End: 09-29-2016 Ambulatory JOSE TRINH [facility] Procedures Date Procedure Procedure Detail Performing Clinician Start: 03-24-2022 Cystoscope, device (physical object) Papa REYNA Start: 09-07-2019 Open removal of foreign body from left atrium Akbar Ugalde Comment on above: removal foreign body lt atrium, repair o f perforation, cryomaze procedure, ASD closure Start: 02-01-2019 Esophagogastroduodenoscopy Akbar Moralesm ons Start: 12-17-2018 Laparoscopic cholecystectomy Violetae Cl emons Start: 05-06-2017 Colonoscopy Akbar [place] Start: 02-16-2002 Hernia repair Akbar Ugalde Comment [...] Provider Gallo avery 02-05-2022 SARS-CoV-2 (COVID-19 ) [id number] ALE FAN [facility] 12-23-2021 influenza virus vaccine, unspecified formulation ALE FAN [facility] 02-11-2021 SARS-CoV-2 (COVID-19 ) mRNA-[id number] vaccine ALE FAN [facility] 12-05-2020 influenza virus vaccine, unspecified formulation ALE FAN [facility] 04-10-2020 tetanus toxoid, redu alon diphtheria toxoid, and acellular pertussis vaccine, adsorbed ALE MEGHAN [facility] 04-05-2020 SARS-CoV-2 (COVID-19 ) mRNA-1273 vaccine ALE MEGHAN [facility] 03-05-2020 SARS-CoV-2 (COVID-19 ) mRNA-1273 vaccine ALE MEGHAN [facility] 01-06-2019 influenza virus vaccine, unspecified formulation ALE MEGHAN [facility] 01-21-2018 influenza virus vaccine, unspecified formulation ALE MEGHAN [facility] 11-25-2016 influenza virus vaccine, unspecified formulation ALE MEGHAN [facility] 04-06-2015 pneumococcal conjuga te vaccine, 13 valent ALE MEGHAN [facility] 01-22-2015 influenza virus vaccine, unspecified formulation ALE MEGHAN [facility] 12-21-2006 influenza, whole ALE PE RRY [facility] Payers Date Payer Category Payer Medicare [id number] 1959 [employer] (LEVI and others) [id number] 1957 Medicare [id number] 1935 Unknown [id number] 1935 Unknown [id number] 1937 Unknown [id number] 1937 Unknown [id number] 1937 Unknown [id number] 1937 Unknown [id number] 1937 Unknown [id number] 1937 Unknown [id number] 1937 Unknown [id number] 1937 Unknown [id number] Social History Date Type Detail Facility Start: 03-05-2022 Tobacco smoking status Ex-smoker (fi nding) [facility] Tobacco smoking status Never [facility] Sex Assigned At Male [facility] Functional Status Date Assessment Result Facility 03-24-2022 Functional Status N/A [facility] 03-05-2022 Functional Status N/A [facility] Clinical Notes 03-24-2022 to 07-15-2023 Note Date & Type Note Facility 07-15-2023 Note [place] [facility] - [facility] Subjective Dc Rasmussen is [...] on 01/09/2020 with chest pain at the [facility] and work-up was negative. His EKG was [...] Thyroid: No thyromegaly. (more content not included)... [facility] 01-06-2023 Note Cardiology Clinic No te Subjective [...] sustained abdominal bleeding. He was admitted to [facility]. His aspirin was stopped and then he [...] chest. The pain (more content not included)... [facility] 01-06-2023 Note Patient here for 6 [place] follow up CAD, PAF, and HFpEF. He [...] All other systems reviewed and are negative. [facility] 11-21-2022 Note Patient here for fol low up TB for afib w/ RVR. He was started on amiodarone. Furosemide was stopped and he is now c/o LE edema. Denies chest pain, SOB, lightheadedness, and palpitations. Review of Systems Cardiovascular: Positive for leg swelling. Respiratory: Positive for cough. Musculoskeletal: Positive for muscle weakness. Neurological: Positive for weakness. All other systems reviewed and are negative. [facility] 11-21-2022 Note Cardiology Clinic No te Subjective [...] sustained abdominal bleeding. He was admitted to [facility]. His aspirin was stopped and then he [...] chest. The pain (more content not included)... [facility] 10-31-2022 Note Please close. Inpati ent consult for rash. I discussed results with patient. Biopsy showed healing rash. 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 He notes the rash is improving. For now, no follow-up needed [facility] 10-31-2022 Note Hospital Medicine Discharge Summary Final [...] biliary ductal dilation. Patient was transferred to [facility] for GIevaluation. He was treated with [...] 10 mg tablet Commonly known as: Singulair vvdmyaxp-iinfqvfve-ZY 3.5-10,000-10 mg-unit-mg/mL ophthalmic suspension Commonly known as: Cortisporin nitroglycerin 400 mcg/spray spray Commonly known as: NitrolinguaL potassium chloride CR 20 mEq ER tablet Commonly known as: Klor-Con M20 tamsulosin 0.4 mg 24 hr capsule Commonly known as: Flomax zolpidem 10 mg tablet Commonly known as: Ambien Where to Get Your Medications These medications were sent to [facility] - [place], [place] - [address], [facility] [address] metoprolol succinate XL 50 mg 24 hr tablet Dc Crawford is allergic to tramadol, albuterol, codeine-guaifenesin, ether, levofloxacin, lidocaine, oxycodone hcl, and oxycodone-acetaminophen. [place] [facility] [place] Condition: Stable Code Status: Prior [...] U/L 231* 2 (more content not included)... [facility] 10-31-2022 Note Hospital Medicine Daily Progress Note - 10/31/2022 3:13 PM; Room: [address] [place] [address] Admission: 10/27/2022 2:17 PM; Length of stay: 1 days THE HOSPITALIST TEAM PREFERS TO USE Invoice[employer] CHAT FOR COMMUNICATION 7AM-7PM. IF I DO NOT RESPOND WITHIN 15 MINUTES, PLEASE PAGE ME/CALL THROUGH THE BLANKET CUTTER HAND. FROM 7PM-7AM, PLEASE PAGE [phone](COVR) Code Status: Full Code Discharge Destination: home [...] 0.91 10/27/2022 Lab Results Component Value Date [id number] 1,187 (H) 10/27/2022 IRON 85 10/27/2022 TIBC [...] hepatic lesions, however (more content not included)... [facility] 10-31-2022 Note [facility] GI Gastroenterology/Hepatology Progress Note IDENTIFYING DATA [...] biliary ductal dilation. Patient was transferred to [facility] for GI evaluation. Impression: Elevated LFTs, [...] and intraabdominal adenopathy, pending MRCP completed at [facility] was severely degraded r/t motion artifact, pt states he was not told he was moving and agreeable to remain still during the test Follow up on punch biopsy of rash Patient would like to follow up with a dynamo repairer that is closer to home following discharge for further care of chronic liver disease Medical management per primary The case will be discussed with the attending physician For Questions please contact us at: [facility] GI Service 6am to 4pm weekdays in house Phone: [phone] 4pm to 6am or weekends please contact the bore mill operator for plastic to page the director non profit fellow [facility] 10-31-2022 Note This report has been cancelled. [facility] 10-30-2022 Note Hospital Medicine Daily Progress Note - 10/30/2022 10:36 AM; Room: [address] [place] [address] Admission: 10/27/2022 2:17 PM; Length of stay: 0 days THE HOSPITALIST TEAM PREFERS TO USE [employer] CHAT FOR COMMUNICATION 7AM-7PM. IF I DO NOT RESPOND WITHIN 15 MINUTES, PLEASE PAGE ME/CALL THROUGH THE BLANKET CUTTER HAND. FROM 7PM-7AM, PLEASE PAGE [phone](COVR) Code Status: Full Code Discharge Destination: home [...] rash has improved in color, now appears jewel bearing turner. Physical Exam Visit Vitals BP 156/74 Pulse [...] to this admissi (more content not included)... [facility] 10-30-2022 Note Subjective Mr. Ty Rasmussen is [...] an eruptive rash several years ago, saw [facility], had a biopsy. Wash told [...] as an outpatie (more content not included)... [facility] 10-30-2022 Note Consent for biopsy [facility] 10-30-2022 Note [facility] GI Gastroenterology/Hepatology Progress Note IDENTIFYING DATA [...] biliary ductal dilation. Patient was transferred to [facility] for GI evaluation. Impression: Elevated LFTs, [...] physician For Questions please contact us at: [facility] GI Service 6am to 4pm weekdays in house Phone: [phone] 4pm to 6am or weekends please contact the bore mill operator for plastic to page the director non profit fellow [facility] 10-29-2022 Note Hospital Medicine Daily Progress Note - 10/29/2022 3:49 PM; Room: [address] [place] [address] Admission: 10/27/2022 2:17 PM; Length of stay: 0 days THE HOSPITALIST TEAM PREFERS TO USE [employer] CHAT FOR COMMUNICATION 7AM-7PM. IF I DO NOT RESPOND WITHIN 15 MINUTES, PLEASE PAGE ME/CALL THROUGH THE BLANKET CUTTER HAND. FROM 7PM-7AM, PLEASE PAGE [phone](COVR) Code Status: Full Code Discharge Destination: home [...] 0.91 10/27/2022 Lab Results Component Value Date [id number] 1,187 (H) 10/27/2022 IRON 85 10/27/2022 TIBC 215 (L) 10/27/2022 Imaging US abdomen limited liver Narrative: US ABDOMEN LIMITED LIVER CLINICAL INFORMATION: Cirrhos (more content not included)... [facility] 10-29-2022 Note [facility] GI Gastroenterology/Hepatology Progress Note IDENTIFYING DATA [...] biliary ductal dilation. Patient was transferred to [facility] for GI evaluation. Impression: Elevated LFTs, [...] physician For Questions please contact us at: [facility] GI Service 6am to 4pm weekdays in house Phone: [phone] 4pm to 6am or weekends please contact the bore mill operator for plastic to page the director non profit fellow [facility] 10-28-2022 Note Hospital Medicine Daily Progress Note - 10/28/2022 5:00 PM; Room: [address] [place] [address] Admission: 10/27/2022 2:17 PM; Length of stay: 1 days THE HOSPITALIST TEAM PREFERS TO USE [employer] CHAT FOR COMMUNICATION 7AM-7PM. IF I DO NOT RESPOND WITHIN 15 MINUTES, PLEASE PAGE ME/CALL THROUGH THE BLANKET CUTTER HAND. FROM 7PM-7AM, PLEASE PAGE [phone](COVR) Code Status: Full Code Discharge Destination: home [...] 0.91 10/27/2022 Lab Results Component Value Date [id number] 1,187 (H) 10/27/2022 IRON 85 10/27/2022 TIBC [...] evaluation for foca (more content not included)... [facility] 10-28-2022 Note 10/28/22 1504 Referral Data Referral Source forest and conservation worker Referral Reason Follow up Patient Information Primary Caregiver Self Activities of Daily Living Assistive Device Cane;Other (Comment);Grab bars (rollator, shower chair) Living Arrangement (Current/Prior to Hospitalization) Private residence Ambulation Independent Dressing Independent Feeding Independent Behavior Oriented Communication Talks;Understands speaking Discharge Planning Support Systems Spouse/significant other;Children Type of Residence/Post Acute Needs Private residence;[facility] Patient's goal for discharge home with HHC Does the patient need discharge transport arranged? No () Screened by [facility]. Sent referral to [facility] to check if this is agency uses. Await reply. transports upon DC. [facility] will accept pt. [facility] 10-28-2022 Note Spiritual Care Note Patient name: Dc Rasmussen Age: 87 y.o. Room: [address] [place] [address] 10/28/22 1125 Clinical Encounter Type Visited With [...] Enoch.) Pastoral Intervention Advance directives;Emotional support;Spiritual support;Prayers (Dye Maker reviewed HCPOA and gave pt forms. Spoke outside of room as she just arrived.) Response Appreciative Pastoral Care Notes Advance Directives [facility] 10-28-2022 Note 10/28/22 1235 Admission Assessment Questions [...] Discharge? Yes Does the patient have a case checker assigned to them through their insurance? Yes Living Arrangement (Current/Prior to Hospitalization) Private residence (lives with ) Does the patient have history of HHC or SNF? Yes (HHC - uses HHC current) Assistive Device Cane;Grab bars (rollator, shower chair) Patient's goal for discharge home with [facility] (patient would like [facility] if able.) Was patient reminded that goal for discharge is 11am? Yes Does the patient have transportation at discharge? Yes () Type of Residence/Post Acute Needs Private residence;[facility] Is PT/OT appropriate? No Is PT/OT ordered? No Is SW consult appropriate? No Is SW consult ordered? No Do you understand the benefits of MyChart? Yes Were you able to send link and activate MyChart? Yes Patient would like [facility] , patient is feeling week and would like motivation for at home, pt.ot is not ordered here, patient uses holland and Rollator now to get around,. Will discuss with Jake BECKER Caring maybe, patient's states cash [facility] 10-27-2022 Note Hospital Medicine History and Physical 10/27/2022 3:53 PM THE HOSPITALIST TEAM PREFERS TO USE Invoice2go CHAT FOR COMMUNICATION 7AM-7PM. IF I DO NOT RESPOND WITHIN 15 MINUTES, PLEASE PAGE ME/CALL THROUGH THE BLANKET CUTTER HAND. FROM 7PM-7AM, PLEASE PAGE [phone](COVR) Chief Complaint Multiple History of Present Illness [...] improved in terms of it is getting jewel bearing turner. 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 Difficulty walking 09/28/2019 Poor diet 09/27/2019 Cardiac tamponade 09/23/2019 Late effect of internal injury to chest 09/23/2019 Basal cell carcinoma of face 05/05/2019 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 Status post percutaneous transluminal coronary angioplasty 01/28/2019 Vasomotor rhinitis 12/20/2018 Chronic cough 12/16/2018 Rhinorrhea 11/30/2018 Abnormal findings on diagnostic imaging of liver and biliary tract 11/10/2018 Fatty liver 11/10/2018 Thoracic aortic aneurysm without rupture ([facility]/HCC) 11/07/2018 Paroxysmal atrial fibrillation ([facility]) 10/11/2018 Pure hypercholesterolemia 10/11/2018 Otitis externa 08/03/2018 Arrhythmia 04/21/2018 Exacerbation of asthma 02/01/2018 Lower urinary tract symptoms due to benign prostatic hyperplasia 06/15/2017 Hypertensive heart disease with congestive heart failure ([facility]) 04/14/2017 Cervical spondylosis without myelopathy 03/12/2017 Pharyngeal abscess 08/07/2016 Eosinophilia 08/07/2016 Abnormal tomography of chest 06/18/2016 Localized edema 05/08/2016 Peripheral venous insufficiency 05/08/2016 Mucopurulent chronic bronchitis ([facility]) 04/29/2016 Benign prostatic hyperplasia 03/20/2016 Chronic obstructive pulmonary disease ([facility]) 03/20/2016 Hyperlipidemia 03/20/2016 Hypokalemia 03/20/2016 Ventricular premature beats 03/20/2016 Allergic rhinitis 03/04/2016 Seizure disorder ([facility]) 03/04/2016 Allergy to soap 02/05/2016 Disorder of lung 02/05/2016 Atherosclerosis of coronary artery without angina pectoris 01/08/2015 Enlarged prostate 01/08/2015 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 Somewhat improving on steroids (more content not included)... [facility] 03-24-2022 Hospital Discharge instructions Patient Education 03/24/2022 [...] urethra. Follow these instructions at home: Take xywb-rpz-otedgut and prescription medicines only as told by [...] 02/02/2006 Document Revised: 12/28/2018 Document Reviewed: 03/09/2017 [employer] Patient Education 2020 Mytonomy. Follow Up Care 03/14/2022 11:33:52 With:YECENIA KIM, Papa Velarde, URL Address: [address] [place] [id number]- When: Unknown [facility] Evaluation + Plan note No data available for this section [facility] Evaluation + Plan note Future Appointments Appointment Date:05/22/2022 02:30:00 PM Scheduled Provider:ALE FAN PA-C Location:[facility] Appointment Type:URO Office Visit [facility] Discharge instructions No data available for this section [facility] Progress note No data available for this section [facility] Summary Purpose Family History No Family [...] section and content) DATE CREATED AUTHOR 08/12/2017 [facility] DATE CREATED AUTHOR AUTHOR'S ORGANIZ ATION 09/14/2020 [facility] DATE CREATED AUTHOR AUTHOR'S ORGANIZ ATION 04/16/2021 [facility] dical Specialist DATE CREATED AUTHOR AUTHOR'S ORGANIZ ATION 06/29/2022 [facility] DATE CREATED AUTHOR AUTHOR'S ORGANIZ ATION 11/02/2022 [facility] DATE CREATED AUTHOR AUTHOR'S ORGANIZ ATION 07/16/2023 [facility] DATE CREATED AUTHOR AUTHOR'S ORGANIZ ATION 09/10/2023 [facility] dical Specialists EPIC Patient Care team informatio n (unrecognized section and content) Personnel Name: NOLAN BAUTISTA MD Address: Address: [address] [place] [address] Personnel Name: NOLAN BAUTISTA MD Address: Address: [address] [place] [address] Personnel Name: NOLAN BATUISTA MD Address: Address: [address] [place] [address] FOR RECORDS PERTAINING TO PATIENTS WHO ARE [...] BE BASED ON THE PRIMARY CLINICAL RECORDS. [facility] [employer] [facility]. provides no warranty or guarantee of the accuracy or completeness of information in this document.
--- NOTE | 2023-11-27 08:20 | NM_ITS ---
Patient Name: DC LUO MR#: [id number] : 1935 Exam Date: 11/27/2023 Ordering Doctor: DR SANJAY JACKSON M.D. RADIOLOGY REPORT PROCEDURE: NM NIMESH PERF SPECT REST STR COMPARISON: None. INDICATIONS: CHEST PAIN TECHNIQUE: Exam Description: Rest/Stress one day protocol gated SPECT Rest Imagin.0 mCi Tc-99m Cardiolite IV on 11/27/2023 Stress Imaging 29.6 mCi Tc-99m Cardiolite IV on 11/27/2023 Exercise Protocol: 0.4 mg Lexiscan given IV Heart Rate (bpm): Rest: 59 Max: 80 PMHR: 59 Blood Pressure: Rest: 148/84 Max: 148/84 Symptoms: Rest and peak stress ECG findings were pending and the exercise portion of the study was pending per attending physician Dr. KIRK . For more details please see separate cardiac stress test report. FINDINGS: QUALITY OF STUDY: Good. PERFUSION DEFECT: LOCATION: Basal inferior. Basal inferolateral. Mid-inferior. [place]. SIZE: Medium (3-4 segments). SEVERITY: Moderate. TYPE: Persistent. WALL MOTION: Normal. LV SIZE: Normal. 88 mL. TID / TCD: None; 0.9 LVEF: Normal. Calculated EF 70%. SUMMARY: Myocardial perfusion imaging study has ABNORMAL findings. CONCLUSION: 1. Moderate fixed defect inferior wall, RCA distribution 2. No reversible ischemia 3. Pending exercise test result Dictated by: Jeffrey Jung MD on 11/27/2023 at 11:57 Approved by: Jeffrey Jung MD on 11/27/2023 at 11:59
[2023-11-27] MEDS: REGADENOSON 0.4 MG/5 ML SYRINGE IV (10:16)
--- NOTE | 2023-11-27 10:17 | PC.NURSE ---
Nursing Note Cardiac Stress Test Reviewed: Medication, allergies and patient history reviewed. Stress Test: [x ] Patient tolerated stress test well. [ ] Patient unable to tolerate walking on treadmill. Switched to Lexiscan stress test. [ x] No chest pain noted per patient [ ] Chest pain that resolved prior to leaving stress lab. [x ] No dyspnea noted. [ ] Dyspnea that resolved prior to leaving stress lab. [ x] Patient left stress lab asymptomatic and hemodynamically stable. [ ] Patient taken to the Emergency Room due to non-resolving symptoms following stress test. [ ] Patient achieved target heart rate. [ ] Patient unable to achieve target heart rate. [ ] Aminophylline administered as reversal agent to Lexiscan (Regadenoson). [ ] Nitro administered. Nursing Comments:Pt had Lexiscan done no issues noted. Pt was taken down to cafeteria for meal prior to second set of images.
== END 2023-11-27 08:03 | disposition home or self-care (01) ==
LOC: NM 08:03
PROVIDERS: PCP Internal Medicine; Visit Provider Internal Medicine Interventional Cardiology
DX: R07.9 Chest pain, unspecified (principal); I48.91 Unspecified atrial fibrillation
CPT/HCPCS: 78452; 93017; A9500; J2785

== ENCOUNTER 2024-05-30 12:00 | Outpatient (OUT) | payer MEDICARE, OTHER, SELFPAY ==
--- NOTE | 2024-05-30 12:07 | XR_ITS ---
[place] [id number] Patient Name: DC LUO MRN: [id number] date: 1935 Sex: M Assigned Patient Location: [facility] Current Patient Location: [facility] Accession/Order Number: [id number] Exam Date: 05/30/2024 13:19 Report Date: 05/30/2024 13:20 At the request of: DARREN BARAJAS Procedure: XR knee RT 3V 3 views right knee plain film COMPARISON: None HISTORY: Chronic right knee pain. No injury ACUTE FINDINGS: No acute findings DEGENERATIVE CHANGE: Adequate joint spaces. Marginal spurring. Tiny intra-articular body. SOFT TISSUE FINDINGS: Atherosclerosis JOINT EFFUSION: None POSTOP CHANGES: None BONE MINERALIZATION: Adequate XR/XR knee RT 3V IMPRESSION: Mild degeneration Impression dictated by: Kyrie Drummond M.D.05/30/2024 1:20 PM Dictation Location: [place] [address] Electronically authenticated by: [id number] Y Date: 05/30/2024 13:20
== END 2024-05-30 12:01 | disposition home or self-care (01) ==
LOC: RAD 12:02
PROVIDERS: PCP Internal Medicine; Visit Provider Internal Medicine
DX: M17.11 Unilateral primary osteoarthritis, right knee (principal)
CPT/HCPCS: 73562

== ENCOUNTER 2025-02-11 20:07 | Emergency (ER) | payer MEDICARE, OTHER, SELFPAY ==
[2025-02-11 20:17] VITALS: PULSE 66
[2025-02-11 20:18] VITALS: BP 149/72; PULSE 62
[2025-02-11 20:19] VITALS: BP 149/72; PULSE 65; TEMP 36.4; O2SAT 97; BMI 25.7
[2025-02-11 20:30] VITALS: BP 135/66; PULSE 59; O2SAT 97
--- NOTE | 2025-02-11 20:30 | ECG_ITS ---
[facility] Test Date: 2025-02-11 Pat Name: DC LUO Department: Room: - Gender: Male Senior Vice President And Chief Information Officer: : 1935 Requested By: Jase Webster Order Number: [id number] Pauly MD: SANJAY JACKSON M.D. Measurements Intervals [place] Rate: 62 P: -33201 DC: 322 QRS: -63 QRSD: 90 T: 69 QT: 414 QTc: 419 Interpretive Statements SINUS RHYTHM FIRST DEGREE AV BLOCK 1474 with frequent supraventricular premature complexes 2420 RSR (QR) in lead V1/V2, consistent with right ventricular conduction delay 7200 Abnormal left axis deviation 9140 abnormal rhythm ECG Compared to ECG 11/25/2023 13:06:01 Premature ventricular contractions are now present Electronically Signed On 02-12-2025 13:28:58 EST by SANJAY JACKSON M.D.
--- NOTE | 2025-02-11 20:30 | XR_ITS ---
[place] [id number] Patient Name: DC LUO MRN: [id number] date: 1935 Sex: M Assigned Patient Location: ER Current Patient Location: Accession/Order Number: [id number] Exam Date: 02/11/2025 20:47 Report Date: 02/12/2025 16:14 At the request of: CARLOS BELTRAN Procedure: XR chest 1V Plain film chest Single view HISTORY: Chest pain COMPARISON: 11/25/2023 FINDINGS: SUPPORT DEVICES: None POSTSURGICAL CHANGES: Stable cardiac surgery changes HEART: Within normal limits PULMONARY DEMETRA: Within normal limits MEDIASTINUM: Unremarkable LUNGS AND PLEURA: No acute lung process, pleural effusion or pneumothorax identified. Mild basilar atelectasis/scarring BONY STRUCTURES: Intact ADDITIONAL FINDINGS None XR/XR chest 1V IMPRESSION: No acute process. Impression dictated by: Kyrie Drummond M.D. 02/12/2025 4:14 PM Dictation Location: [employer] Electronically authenticated by: [id number] Y Date: 02/12/2025 16:14
[2025-02-11 20:40] LABS: Hematocrit 41.6 % (42.0-54.0); Hemoglobin 13.8 g/dL (14.0-18.0); Immature Granulocytes Abs Auto 0.02 10^3/uL (0.00-0.03); Immature Granulocytes Pct Auto 0.3 % (0.0-0.5); Lymphocytes Absolute Auto 2.4 10^3/uL (1.2-3.8); Mean Corpuscular HGB Conc 33.2 g/dL (29.9-35.2); Mean Corpuscular Hemoglobin 30.6 pg (25.9-34.0); Mean Corpuscular Volume 92.2 fL (80.0-94.0); Platelet Count 222 10^3/uL (150-450); Red Blood Count 4.51 10^6/uL (4.70-6.10); White Blood Count 7.0 10^3/uL (4.0-11.0)
--- OUTSIDE RECORDS SUMMARY | 2025-02-11 20:40 | XMS_ITS | Continuity of Care Document ---
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 It does not include entries that were removed or entered in error. Problem Status Onset Date Problem Type Date of Resolution Comme nts Source AF- Atrial Fibrillation (SCT 10573486) Active C on[facility] - Coronary Artery Disease ([facility] [id number])ActiveCondition* Jan 20, 2019 Entered By: SENTHIL MELTON MD Comment: s/p [facility]ICDifficulty walkingActiveConditionOUR LADY [facility] CLINICGeneralized seizureActiveConditionUNIVERSITY [facility]OS[facility]ITALS [facility] CENTERGERD - Gastro-Esophageal Reflux Disease ([facility] [id number])ActiveConditionOUR LADY OF [facility] CLINICHistory of cholecystectomyActive Condition* Jan 20, 2019 Entered By: SENTHIL MELTON MD Comment: laparoscopic, 12/2018 [facility]ENTERHTN - Hypertension ([facility] [id number])[facility] Hyperlipidemia ([facility] [id number])ActiveConditionUNIVERSITY HOSPITALS PORTAGE MEDICAL CENTEROA - Osteoarthritis (SCT [id number])[facility]ConHutchinson Health HospitalProstate Cancer ([facility] [id number]) ActiveConProMed[facility] CLINICSensorineural hearing loss, bilateral ([facility] [id number])[facility]ConHutchinson Health Hospital Medications Combined list of outpatient medications from Department of [facility] and [facility] facilities.Medications provided include 1) outpatient medications from the last 15 months, and 2) patient-reported medications. Medication Details Route Status Indication(s) Patie nt Instructions Prescription Expires Prescription Number Last Dispense Date Ordering Provider Order Date Order Qty Source APIXABAN 5MG TAB TAKE ONE TABLET BY MOUTH TWICE A DAY ORAL ACTIVE SANGEETA MELTON MD 2018 [facility] ATORVASTATI N CA 40MG TAB TAKE ONE-HALF TABLET BY MOUTH ONCE DAILY ORAL ACTIVE SANGEETA MELTON MD 2018 [facility] DIAZEPAM 5MG TAB TAKE ONE TABLET BY MOUTH ONCE DAILY NEEDED ORAL ACTIVE OATISSANGEETA MD 2018 [facility] FAMOTIDINE 40MG TAB TAKE ONE TABLET BY MOUTH TWICE A DAY ORAL ACTIVE OATIS,SANGEETA Andujar MD 2018 [facility] FUROSEMIDE 40MG TAB TAKE ONE TABLET BY MOUTH EVERY MORNING ORAL ACTIVE OATISSANGEETA MD 2018 [facility] POTASSIUM CHLORIDE 10MEQ TAB,SA TAKE TWO TABLETS BY MOUTH ONCE DAILY ORAL ACTIVE OATIS,SANGEETA Andujar MD 2018 [facility] TAMSULOSIN HCL 0.4MG CAP TAKE 1 CAPSULE BY MOUTH EVERY EVENING ORAL ACTIVE OATISSANGEETA MD 2018 [facility] ZOLPIDEM TARTRATE 10MG TAB TAKE ONE TABLET BY MOUTH AT BEDTIME NEEDED ORAL ACTIVE OATISSANGEETA MD 2018 [facility] Allergies, Adverse Reactions, Alerts Combined list of allergies from Department of Defense and Veterans Affairs facilities. It does not include entries that were removed or entered in error. Substance Category Reaction Severity Reaction type Status Date Reported Comments Source ALBUTEROL Propensity to adverse reactions to drug (finding) Headache active 6 [facility] LIDOCAINE Drug allergy (disorder) Eruption of skin active 6 [facility] LIDOCAINE Propensity to adverse reactions to drug (finding) Eruption active 6 [facility] PROPOXYPHENE Drug allergy (disorder) Anxiety active 0 [place] TRAMADOL Drug allergy (disorder) Delirium active 6 [facility] ULTRAM Propensity to adverse reactions to drug (finding) Delirium active 6 [facility] Immunizations Combined list of available immunizations from the Department of Defense and Veterans Affairs facilities. Immunization Series Date Given Administered By Site Reaction Lot Number CVX Code Drug Lens Blank Gauger Status Comments Source ZOSTER RECOMBINANT 1 2018 187 complet ed [facility] INFLUENZA (HISTORICAL) 2018 88 complet ed [facility] INFLUENZA, TRIVALENT, ADJUVANTED 2017 168 complet ed Fluad, [id number], exp. [id number] [facility] INFLUENZA, HIGH DOSE SEASONAL 2016 135 complet ed [id number], exp. [id number] [facility] INFLUENZA (HISTORICAL) 2015 88 complet ed [facility] PNEUMOCOCCAL CONJUGATE PCV 13 2015 133 complet ed [facility] INFLUENZA (HISTORICAL) 2014 88 complet ed [facility] FLU,3 YRS (HISTORICAL) 2014 88 complet ed [facility] INFLUENZA, UNSPECIFIED FORMULATION 2009 88 complet ed FAZAYNAB CASE AR FLU,3 YRS (HISTORICAL) 2009 88 complet ed [facility] TD(ADULT) UNSPECIFIED FORMULATION 2009 139 complet ed Completed Series, ISIDORO CASE AR TDAP 2009 115 complet ed [facility] INFLUENZA, UNSPECIFIED FORMULATION 2008 88 complet ed FAZAYNAB CASE AR PNEUMOCOCCAL, UNSPECIFIED FORMULATION 2008 109 complet ed [place]AYETTE EVIE AR PNEUMOCOCCAL POLYSACCHARID E [id number] 2006 33 complet ed [facility] t card [facility] Encounters Combined list of: 1) Encounters from Department of Veterans Affairs facilities going backup to the last 18 months, not all [place] inpatient encounters are included; 2) Encounters from the Department of Defense facilities going backup to 280 months. Location Location Details Encounter Type Encounter Number Reason For Visit Attending Provider ADM Date DC Date Status Disposition Source [facility] Outpatient Encounter [id number] 09/02 [facility] Outpatient Encounter [id number] 11/25 [facility] Outpatient Encounter [id number] 05/11 [facility] Social History Combined list of available smoking, tobacco, and other social history from Department of Defense and Veterans Affairs facilities. Social History Type Response Date Comment Sourc e Tobacco smoking status NHIS VA-TOBACCO QUIT 15 YRS OR MORE 01/21/2018 [facility] History of tobacco use VA-TOBACCO FORMER USER 01/21/2018 [facility] History of tobacco use VA-TOBACCO FORMER USER 01/21/2018 [facility] History of tobacco use QUIT TOBACCO >12 MO 01/22/2017 [facility] History of tobacco use QUIT TOBACCO >12 MO 02/08/2016 [facility] History of tobacco use QUIT TOBACCO >12 MO 04/06/2015 [facility] History of tobacco use QUIT TOBACCO >12 MO 04/06/2014 [facility] History of tobacco use QUIT TOBACCO >12 MO 01/21/2010 [facility] History of tobacco use V16 TOBACCO USE SCREEN 07/20/2009 [place] This section is an empty social history section. [facility]D
--- OUTSIDE RECORDS SUMMARY | 2025-02-11 20:42 | XMS_ITS | CCD ---
Author Organization [facility] Care Team Providers Care Cosmetics Presser Name Role Phone JOSE TRINH Unavailable NOLAN Tavarez II Unavailable Unavailable NOLAN BAUTISTA Primary Care Physician DR NOLAN BAUTISTA Admitting Unavailable KARL, DR BANKS Attending Unavailable KARL, DR BANKS Primary Care Unavailable KARL, DR BANKS Consulting Unavailable MISC, DR AGUIRRE Admitting Unavailable MISC, DR AGUIRRE Attending Unavailable KARL, DR BANKS Primary Care Unavailable MISC, DR AGUIRRE Consulting Unavailable Nolan Bautista MD Primary Care Provider [phone] Nolan Bautista MD Unavailable Donahue TOOLS PROGRAMMER, Twyla Unavailable Unavailable SANJAY HECTOR Attending Unavailable ALEX TAYLOR Attending Unavailable SANJAY HECTOR Attending Unavailable SANJAY HECTOR Attending Unavailable [facility] Unavailable NOLAN BAUTISTA Attending Unavailable VENECIA TORRES Attending Unavailable NOLAN BAUTISTA Attending Unavailable NOLAN BAUTISTA Attending Unavailable JR. RAYMOND GEORGE C Attending Unavaila NOLAN Carr Referring Unavailable JR. RAYMOND GEORGE C Referring Unavaila NOLAN Carr Attending Unavailable JR. RAYMOND GEORGE C Referring Unavaila mendy RAYMOND JR., GEORGE C Attending Unavaila mendy RAYMOND JR., GEORGE C Attending Unavaila ble Orzeyair Briana X Attending Unavailable OrzeBriana mazariegos X Attending Unavailable Orzech Briana X Attending Unavailable KevinzeBriana mazariegos X Attending Unavailable Celeste Silva RN Unavailable [phone] [place] TOOLS PROGRAMMER, Twyla Unavailable Allergies Allergy ClassificationReported Allergen(s)Allergy TypeDate of OnsetReaction(s) Facility (20 sources)traMADol; Translations: [tramadol]Drug Ugubncg67-40-4693Vuczdiee disorder (disorder), Unknown, Hallucinations (finding)[facility] (1 source)Acetaminophen / oxyCODONEDrug Revrila84-70-0123QqcMcc[facility] (3 sources)Albuterol; Translations: [ALBUTEROL]Drug Fzspoie44-77-9207VfbMccullough-[facility] (1 source)formoterolDrug AllergyMccullough-[facility] (1 source)levoFLOXacinDrug Uuvqyxn16-79-7472Nzv [facility] Repository (2 sources)Lidocaine; Translations: [LIDOCAINE]Drug Amgoqmu67-30-5297XdsMccullough-[facility] (2 sources)oxyCODONE; Translations: [oxyCODONE]Drug AllergyMccullough-[facility] (1 source)traMADolDrug Wmlavfu57-23-1672SbwMccullough-[facility] (2 sources)Ether; Translations: [ETHER]Drug allergy (disorder)65-34-3920JosMccullough-[facility] (20 sources)Acetaminophen; Translations: [ACETAMINOPHEN]Drug Aafjdcn56-78-7653 [facility] Work Phone: (20 sources)Acetaminophen / oxyCODONE; Translations: [OXYCODONE-ACETAMINOPHEN] Drug Lsiwzym20-21-1102LkyolabCXUP Healthcare (20 sources)Albuterol; Translations: [albuterol]Drug Syaxeoi74-03-3529Iyfxoid, Other, Migraine (disorder)[facility] (20 sources)levoFLOXacin; Translations: [LEVOFLOXACIN]Drug Xlncpgx37-69-9977 Eruption of skin (disorder)[facility] (20 sources)LidocaineDrug Fugawzt06-44-6268Yyue, GI intoleranceNOMid [facility] (20 sources)oxyCODONE; Translations: [oxycodone]Drug Qthzkbn85-35-5447 Hallucinations (finding)[facility] (20 sources)Propoxyphene; Translations: [PROPOXYPHENE]Drug Lvpfcqi65-00-5589 [facility]Miss[facility] ([facility] sources)Thiopental; Translations: [THIOPENTAL]Drug Yhrmtrg48-34-0685Hiudlgq, Unknown (qualifier value)[facility] (20 sources)EtherPropensity to adverse pdhagxjpa14-94-9192SwfonfnYJJB Healthcare (20 sources)Guaifenesin-CodeineDrug Iiextobikou88-28-5973McoiHCIM [facility] Work Phone: (3 sources)Codeine / guaiFENesin; Translations: [CODEINE-GUAIFENESIN]Drug Wnxpnhg41-51-0554Bizafwdf (morphologic abnormality)[facility] Repository (1 source)oxyCODONE; Translations: [OXYCODONE HCL]Drug Tspxezh41-68-2972 [facility] Rep[facility] (1 source)Acetaminophen; Translations: [acetaminophen]Drug AllergyUnknown (qualifier value)[facility] Medications Current Medications MedicationDrug Class(es)DatesSig (Normalized)Sig (Original)acetaminophen 500 mg oral tablet (20 sources)Start: 70-07-1456asak 1 mg by mouth every six hoursTylenol Extra Strength 500 mg oral tablet mg tab(s), Oral, q6hr Start Date: 03/05/22 Status: OrderedRepeat number: 1Acetaminophen 500 MG capsule Take by mouth every 4 (four) hours if needed Activeascorbic acid 1000 mg oral tablet (20 sources)Vitamin Ctake 1 tablet by mouth once dailyAscorbic Acid (vitamin C) 1000 MG tablet Take 1,000 mg by mouth Daily Activeaspirin 81 mg delayed release oral tablet (20 sources)Platelet Aggregation Inhibitor, Nonsteroidal Anti-inflammatory Drug take 1 tablet by mouth once dailyaspirin (Aspirin Low Dose) 81 MG EC tablet Take 81 mg by mouth Daily Activeatorvastatin 20 mg oral tablet (20 sources)HMG-CoA Reductase InhibitorStart: 03-30-2023 End: 11-50-7334hwdv 2 tablets by mouth in the morningatorvastatin (Lipitor) 20 MG tablet Indications: Pure hypercholesterolemia TAKE 2 TABLETS BY MOUTH IN THE MORNING 180 tablet 3 01/04/2024 ActiveStart: 02-43-3867elck 1 mg by mouth once dailyatorvastatin 20 mg Tab mg tab(s), Oral, Daily Start Date: 03/05/22 Status: Ordered Repeat number: 1B Complex Vitamins (vitamin B complex) tablet (20 sources)take 1 tablet by mouth once dailyB Complex Vitamins (vitamin B complex) tablet Take 1 tablet by mouth Daily Activetake 1 tablet by mouth in the morningB Complex Vitamins (vitamin B complex) tablet Take 1 tablet by mouth in the morning. Activecetirizine hydrochloride 10 mg oral tablet (20 sources)Histamine-1 Receptor AntagonistStart: 03-05-2022 End: 60-87-9968fenp 1 tablet by mouth once dailycetirizine (ZyrTEC) 10 MG tablet Indications: Eosinophilia, unspecified type TAKE 1 TABLET BY MOUTHDAILY 90 tablet 3 04/01/2024 Activeciprofloxacin 500 mg oral tablet (1 source)Quinolone AntimicrobialStart: 55-69-2927Frufs 500 mg Tab See Instructions, Take 1 tab the day prior to procedure and 1 tab day of procedure afterwards, # 2 tab(s), Refills(s) 0, Pharmacy: [facility], 188, cm, 03/05/22 14:43:00 EST, Height/Length Dosing, 94, kg, 03/05/22 14:43:00 EST, Weight... Start Date: 03/14/22 Status: OrdereddiazePAM 5 mg oral tablet (20 sources)BenzodiazepineStart: 09-18-2023 End: 66-91-8799etvv 1 tablet by mouth twice daily as needed for anxietydiazePAM (Valium) 5 MG tablet Indications: Meniere's disease of both ears Take 1 tablet (5 mg) by mouth 2 (two) times a day as needed for anxiety 60 tablet 5 03/10/2024 ActiveStart: 14-30-9372aiuh 1 mg by mouth every eight hoursdiazepam 5 mg Tab mg tab(s), Oral, q8hr Start Date: 03/05/22 Status: Ordered Repeat number: 1 diphenhydrAMINE hydrochloride 25 mg oral capsule (20 sources)Histamine-1 Receptor AntagonistStart: 51-12-6946usre 1 mg by mouth every six hoursBenadryl 25 mg Cap mg cap(s), Oral, q6hr Start Date: 03/05/22 Status: Ordered Repeat number: 1take 1 tablet by mouth in the morning diphenhydrAMINE (BENADryl) 25 MG tablet Take 25 mg by mouth in the morning. Activefinasteride 5 mg oral tablet (14 sources)5-alpha Reductase InhibitorStart: 26-34-6364tovc 1 tablet by mouth once dailyfinasteride (Proscar) 5 MG tablet Take 5 mg by mouth Daily 05/31/2024 Activefurosemide 40 mg oral tablet (20 sources)Loop DiureticStart: 03-05-2022 End: 41-62-0935btra 1 tablet by mouth once dailyfurosemide (Lasix) 40 MG tablet Indications: Diastolic heart failure, stage B (HCC) TAKE 1 TABLET BY MOUTH DAILY 90 tablet 3 04/01/2024 Activeipratropium bromide 0.042 mg/actuat metered dose nasal spray (20 sources)AnticholinergicStart: 82-36-3637fsil 2 spray(s) nasal route in the morningipratropium (Atrovent) 0.06 % nasal spray Indications: Perennial allergic rhinitis Administer 2 sprays into each nostril in the morning and 2 sprays before bedtime. 15 mL 1 08/24/2023 ActiveStart: 56-38-8120Ehvgcvcv 0.03% [place] 2 spray(s), Nasal, TID, 30 mL Start Date: 03/05/22 Status: Ordered Quantity: 30.0 Unit: mL Repeat number: 1Start: 60-74-1795Dwurbfao 0.03% [place] 2 spray(s), Nasal, TID, 30 mL Start Date: 03/05/22 Status: OrderedStart: 07-08-2018 ipratropium (Atrovent) 0.02 % nebulizer solution Take 1 vial by nebulization in the morning and 1 vial at noon and 1 vial in the evening and 1 vial before bedtime. 07/08/2018 Activeketoconazole 20 mg/ml topical cream (18 sources)Azole AntifungalStart: 18-57-3832zkaarbshwhve (NIZOral) 2 % cream Indications: Other seborrheic dermatitis Apply thin layer to affected areas on face daily 60 g 11 05/16/2024 Activelevalbuterol 2.5 mg/ml inhalation solution (20 sources)beta2-Adrenergic AgonistStart: 79-56-7433zorkfwtpwops 1.25 mg/0.5 mL Concentrate mg mL, NEB, TID Start Date: 03/05/22 Status: Ordered Repeat number: 1levalbuterol (Xopenex) 1.25 MG/0.5ML nebulizer solution Take 1 ampule by nebulization every 8 (eight) hours if needed for wheezing Sdttjo56 hr metoprolol succinate 50 mg extended release oral tablet (20 sources)beta-Adrenergic BlockerStart: 27-88-8688yrtn 1 tablet by mouth every twenty-four hours in the morning, then take 1 tablet by mouth in the evening metoprolol succinate XL (Toprol-XL) 50 MG 24 hr tablet Indications: Paroxysmal atrial fibrillation (HCC) TAKE 1 & 1/2 (ONE AND ONE-HALF) TABLETS BY MOUTH IN THE MORNING and ONE TABLET BY MOUTH INTHE EVENING 225 tablet 3 04/01/2024 Active Start: 95-35-9523rftu 1.5 tablets by mouth every twenty-four hours in the morning, then take 1 tablet by mouth in the eveningmetoprolol succinate XL (Toprol-XL) 50 MG 24 hr tablet Indications: Paroxysmal atrial fibrillation ( CMS/HCC) Take 1.5 tablets (75 mg) by mouth in morning and take 1 tab (50 mg) in evening. 225 tablet3 06/05/2023 ActiveStart: 77-28-1665xcsp 1 mg by mouth once dailymetoprolol 100 mg ER Tab mg tab(s), Oral, Daily Start Date: 03/05/22 Status: Ordered Repeat number: 1montelukast 10 mg oral tablet (20 sources)Leukotriene Receptor AntagonistStart: 03-05-2022 End: 71-00-4789qsmf 1 tablet by mouth in the morningmontelukast (Singulair) 10 MG tablet Indications: Idiopathic hypereosinophilic syndrome , Mild intermittent asthma without complication (HCC) , Perennial allergic rhinitis TAKE 1 TABLET BY MOUTH IN THE MORNING 90 tablet 3 01/04/2024 Activenitroglycerin 0.4 mg sublingual tablet (20 sources)Nitrate VasodilatorStart: 80-72-2078jfoucmrfsureu (Nitrostat) 0.4 MG SL tablet Indications: Diastolic heart failure, stage B (HCC) Place 1 tablet (0.4 mg) under the tongue every 5 (five) minutes if needed for chest pain DISSOLVE 1 TABLET UNDER THE TONGUE NEEDED FOR CHEST PAIN- MAY REPEAT EVERY 5 MINUTES IF NEEDED ( MAX 3 DOSES.- IF NO RELIEF CALL 911) 25 tablet 2 11/18/2023 ActiveStart: 34-77-5802hjwokqeqrzakb 0.4 mg SubL [place] mg spray(s), SubLingual, q5min Start Date: 03/05/22 Status: Ordered Repeat number: 1pantoprazole 40 mg delayed release oral tablet (20 sources)Proton Pump InhibitorStart: 03-05-2022 End: 83-04-4704pfua 1 tablet by mouth before mealtimepantoprazole (ProtoNix) 40 MG EC tablet Indications: Gastroesophageal reflux disease with esophagitis, unspecified whether hemorrhage TAKE 1 TABLET BY MOUTH IN THE MORNING BEFORE MEALS 90 tablet 3 04/01/2024 Activepotassium chloride 20 meq powder for oral solution (20 sources)Start: 55-75-4698fage 20 mEq by mouth in the morningpotassium chloride (Klor-Con) 20 MEQ packet Indications: Hypokalemia Take 20 mEq by mouth in the morning and 20 mEq before bedtime. 180 each 3 02/15/2024 ActiveStart: 10-26-2023 End: 88-64-1605zzrk 3 tablets by mouth in the morningpotassium chloride CR (Klor-Con) 10 MEQ ER tablet Indications: Hypokalemia Take 3 tablets (30 mEq) by mouth in the morning and 3 tablets (30 mEq) before bedtime. 540 tablet 10/26/2023 11/25/2023 DiscontinuedStart: 79-81-9175cqmn 20 mEq by mouth in the morningpotassium chloride (Klor-Con) 20 MEQ packet Indications: Hypokalemia Take 20 mEq by mouth in the morning and 20 mEq before bedtime. 180 each 3 10/20/2023 ActiveStart: 84-60-7085Myysclqid Chloride (Uah-Cymk-Xog 10) mEq, Oral, BID Start Date: 03/05/22 Status: Ordered Repeat number: 1Start: 11-43-4450Ffxethwap Chloride (Lrx-Ftdf-Gxt 10) mEq, Oral, BID Start Date: 03/05/22 Status: Ordered predniSONE 20 mg oral tablet (10 sources)Start: 03-18-2024 End: 68-03-0293nodb 1 tablet by mouth once dailypredniSONE (Deltasone) 20 MG tablet Indications: Angioedema, initial encounter Take 1 tablet (20 mg) by mouth Daily 5 tablet 1 03/18/2024 06/16/2024 Discontinued (Therapy completed) tamsulosin hydrochloride 0.4 mg oral capsule (20 sources)alpha-Adrenergic BlockerStart: 44-14-9295zobk 2 capsules by mouth at bedtimetamsulosin 0.4 mg Cap 0.8 mg = 2 cap(s), Oral, Bedtime, # 60 cap(s), Refills(s) 1, Pharmacy: [facility], 188, cm, 05/31/24 10:22:00 EDT, Height/Length Dosing, 91.9, kg, 05/31/24 10:22:00 EDT, Weight Dosing Start Date: 05/31/24 Status: Ordered Quantity: 60.0 Unit: cap(s) Repeat number: 2 Indications: Benign prostatic hyperplasia with lower urinary tract symptoms; Start: 08-31-2023 End: 92-89-1744rsiu 1 capsule by mouth once dailytamsulosin 0.4 mg Cap 0.4 mg = 1 cap(s), Oral, Daily, # 90 cap(s), Refills(s) 3, Pharmacy: [facility], 188, cm, 05/31/24 10:22:00 EDT, Height/Length Dosing, 91.9, kg, 05/31/24 10:22:00 EDT, Weight Dosing Start Date: 07/31/24 Status: Ordered Quantity: 90.0 Unit: cap(s) Repeat number: 4Start: 64-68-7799xizb 1 mg by mouth once dailyFlomax 0.4 mg Cap mg cap(s), Oral, Daily Start Date: 03/05/22 Status: OrderedVitamin B Complex oral capsule (4 sources)Start: 44-11-8276kboz 1 capsule by mouth once dailyVitamin B Complex oral capsule Oral, Daily Start Date: 03/05/22 Status: Ordered Repeat number: 1 Start: 80-86-8523Iwxpnes B Complex oral capsule Oral, Daily Start Date: 03/05/22 Status: OrderedVitamin C 1000 mg oral tablet (4 sources)Start: 21-35-5221jisb 1 mg by mouth once dailyVitamin C 1000 mg oral tablet mg tab(s), Oral, Daily Start Date: 03/05/22 Status: Ordered Repeat number: 1Start: 72-51-5185svxx 1 mg by mouth once dailyVitamin C 1000 mg oral tablet mg tab(s), Oral, Daily Start Date: 03/05/22 Status: Orderedzolpidem tartrate 10 mg oral tablet (20 sources)gamma-Aminobutyric Acid-ergic AgonistStart: 03-05-2022 End: 68-68-4273flqn 1 tablet by mouth at bedtimezolpidem (Ambien) 10 MG tablet Indications: Primary insomnia Take 1 tablet (10 mg) by mouth at bedtime 30 tablet 12/22/2024 01/21/2025 Active Problems Active Problems Problem ClassificationProblemDateDocumented DateEpisodic/ChronicAcute myocardial infarction (20 sources)Myocardial infarction; Translations: [Acute myocardial infarction, unspecified]Onset: 276326-29-1025XhjotdnKfferwu-vzewyrd disorders (20 sources)Alcohol dependence; Translations: [Alcohol dependence, uncomplicated]Onset: 487662-32-7408ZvqmhcqByspui; peripheral; and visceral artery aneurysms (20 sources)Thoracic aortic aneurysm without rupture; Translations: [Thoracic aortic aneurysm without rupture]Onset: 047442-92-7504XqgwzskCqyzsg (20 sources)Asthma; Translations: [Unspecified asthma, uncomplicated]Onset: 376905-13-8666AojelugXecxjk of prostate (20 sources)Carcinoma of prostate; Translations: [Malignant neoplasm of prostate]Onset: 103262-11-6044XospvudOfiwxwz dysrhythmias (20 sources)Atrial fibrillation; Translations: [Cardiac arrhythmia]Onset: 702335-24-6522DcihrzzQzcfyso obstructive pulmonary disease and bronchiectasis (20 sources)Chronic obstructive lung disease; Translations: [Mucopurulent chronic bronchitis]Onset: 649630-26-1946QkxmcykLucsigcxhw associated with dizziness or vertigo (20 sources)Meniere's disease; Translations: [Meniere's disease, unspecified ear]Onset: 782135-01-2469DigulziMshyxoxodo heart failure; nonhypertensive (20 sources)Congestive heart failure; Translations: [Diastolic heart failure stage B]Onset: 382692-94-0319KcbncdeDjtnonho atherosclerosis and other heart disease (20 sources)Angina pectoris; 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]Onset: 22-55-401727186220-18-8872GoriqaqFpnpwlmmq congenital anomalies (20 sources)Terminal esophageal web; 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]Onset: 591222-43-8756HsaxrdgXqqsccpv of white blood cells (20 sources)Eosinophil count raised; Translations: [Eosinophilia]Onset: 700628-08-6923QslhnfuYzskustuv of lipid metabolism (20 sources)Hyperlipidemia; Translations: [Pure hypercholesterolemia]Onset: 877128-53-1119OtmceqeQwxktvhjyxeskf and diverticulitis (20 sources)Diverticular disease; Translations: [Diverticulosis of intestine, part unspecified, without perforation or abscess without bleeding]Onset: 658497-25-0177UembsmoRraogfud; convulsions (20 sources)Tonic-clonic epilepsy; 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]Onset: 322784-19-3897IyibzvpVvqtgjtxxx disorders (20 sources)Gastroesophageal reflux disease; Translations: [Gastro-esophageal reflux disease without esophagitis]Onset: 400121-43-5888HswjsmgUzpfusukjv disorders (4 sources)Cfaeivmkqgl74-79-8253RovptgosBmsnejqooqylg symptoms and ill-defined conditions (2 sources)Post-void dribbling; Translations: [Post-micturition incontinence ] Onset: 04-77-5263YjjkxegJriwa valve disorders (1 source)Rheumatic disorders of both mitral and tricuspid valves; Translations: [RHEUMATIC D/O MITRAL TRICUSPID VALV]Onset: 83-36-3763EclhgofUmyzywekykb of prostate (20 sources)Benign prostatic hypertrophy without outflow obstruction; Translations: [Benign prostatic hyperplasia without lower urinary tract symptoms]Onset: 06-15-2017 Resolved: 02-20-1883GkzrvtaDahzilqoqixs with complications and secondary hypertension (20 sources)Hypertensive heart disease with congestive heart failure; Translations: [Hypertensive heart diseasewith heart failure]Onset: 07-08-2022 75-16-1005PxmeozuZvynk disorders and dislocations; trauma-related (2 sources)Acute tear of lateral meniscus of right knee; Translations: [Other tear of lateral meniscus, current injury, right knee, initial encounter] 97-00-1243JsekjhxsJwkwvolhhptfh mental health disorders (20 sources)Primary insomnia; Translations: [Primary insomnia]Onset: 07-08-2022 41-39-0575GjscnafTufyumvxtsd deficiencies (20 sources)Nutritional disorder; Translations: [Unspecified severe protein- calorie malnutrition]Onset: 936881-80-3723AndqrjdGpvmvpfjlvuswg (20 sources)Arthritis; Translations: [Degenerative joint disease involving multiple joints]Onset: 188734-26-0571AxiixjnYgrto and ill-defined heart disease (4 sources)Heart -70-0467OyyntedGwdko and unspecified benign neoplasm (2 sources)Melanocytic nevi of other parts of face; Translations: [Benign neoplasm of skin of other and unspecified parts of face]42-69-7131CaufebzoCennu circulatory disease (2 sources)Spider nevus; Translations: [Nevus, non-neoplastic]25-17-5017Ikrrfjdx Other ear and sense organ disorders (20 sources)Otitis externa; Translations: [Unspecified otitis externa, unspecified ear]Onset: 498446-28-4123NpifdrhBplrf ear and sense organ disorders (20 sources)Sensorineural hearing loss, bilateral; Translations: [Sensorineural hearing loss, bilateral]Onset: 508619-15-1128SgkiwmpLggiw ear and sense organ disorders (1 source)Sensorineural hearing jriu37-22-7996AfubjovSmdnk inflammatory condition of skin (2 sources)Seborrheic dermatitis; Translations: [Other seborrheic dermatitis] 90-11-9650NiffhsczVitny liver diseases (20 sources)Steatosis of liver; Translations: [Fatty (change of) liver, not elsewhere classified]Onset: 355160-22-6431ItoskwjMhyhp nervous system disorders (20 sources)Difficulty walking; Translations: [Difficulty in walking, not elsewhere classified]Onset: 220873-54-6494GyyzikeWizbq non-traumatic joint disorders (6 sources)Pain in right knee; Translations: [Pain in joint, lower leg] 56-32-3501NbdbructGunvg nutritional; endocrine; and metabolic disorders (20 sources)Hypoalbuminemia; Translations: [Other disorders of plasma-protein metabolism, not elsewhere classified]Onset: 439531-85-4223YedfftxQhtgx screening for suspected conditions (not mental disorders or infectious disease) (20 sources)Imaging result abnormal; Translations: [Abnormal findings on diagnostic imaging of other specified body structures]Onset: 06-18-2016 18-56-6629FmmtigrCaxrz skin disorders (2 sources)Actinic keratosis; Translations: [Actinic keratosis]05-16-2024 EpisodicOther skin disorders (2 sources)Sebaceous hyperplasia; Translations: [Other specified follicular disorders]16-75-6721QpdtfquwFozrc upper respiratory disease (20 sources)Perennial allergic rhinitis; Translations: [Other allergic rhinitis] Onset: 057657-55-2834YhtfltuKhbwy upper respiratory disease (20 sources)Vasomotor rhinitis; Translations: [Vasomotor rhinitis]Onset: 467720-90-2303LbzfgsnXrpkdgfbn and history of mental health and substance abuse codes (1 source)Lz-lxqivf00-05suejji18-74-6817EfthenooKcevorzktif; intervertebral disc disorders; other back problems (20 sources)Cervical spondylosis without myelopathy; Translations: [Spondylosis without myelopathy or radiculopathy, cervical region]Onset: 907971-59-9005 ChronicUnclassified (3 sources)COUGH, UNSPECIFIED; Translations: [COUGH, UNSPECIFIED]Onset: 74-12-2093Lawjjvmipwsd (1 source)Aneurysm of the ascending aorta, without rupture; Translations: [Aneurysm of the ascending aorta, without rupture]Onset: 40-63-3947Asduqqxwkiuu (2 sources)Hospital Follow-up; Translations: [Hospital Follow-up]Onset: 87-91-3804Hrkeaenvvvuj (1 source)Mass of bjeywly20-71-9186Ciacw infection (5 sources)Disease caused by 2019-nCoV; Translations: [COVID-19]Onset: 714581-35-5947 Past or Other Problems Problem ClassificationProblemDateDocumented DateEpisodic/ChronicAbdominal hernia (20 sources)Hiatal hernia; Translations: [Diaphragmatic hernia without obstruction or gangrene]Onset: 356796-24-1533DkchxiplJdlsuavwf pain (20 sources)Abdominal pain; Translations: [Unspecified abdominal pain]Onset: 849568-48-9696NjifpgokMzeqzxmd reactions (20 sources)Allergic disposition; Translations: [Other allergy status, other than to drugs and biological substances]Onset: 402977-66-3971Lwwcxzas Biliary tract disease (20 sources)Chronic cholecystitis; Translations: [Chronic cholecystitis]Onset: 615216-88-5355AldnjpybCghwhkit atherosclerosis and other heart disease (20 sources)Patient post percutaneous transluminal coronary angioplasty; Translations: [Coronary angioplasty status]Onset: 199943-49-5560Mwtvhiwp Crushing injury or internal injury (20 sources)Laceration of heart with penetration of heart chambers; Translations: [Laceration of heart, unspecified with or without hemopericardium, initial encounter]Onset: 040579-67-6428BomhefmnOzngsviclb and other anemia (20 sources)Anemia; Translations: [Anemia, unspecified]Onset: 07-15-2023 33-42-4367CrfvzwvqGutciipx; convulsions (20 sources)Generalized seizure; Translations: [Unspecified convulsions]Onset: 571001-55-7002FclhcimyPqltz and electrolyte disorders (20 sources)Hypokalemia; Translations: [Hypokalemia]Onset: EpisodicGenitourinary symptoms and ill-defined conditions (20 sources)Splitting of urinary stream; Translations: [Splitting of urinary stream]Onset: 60-06-6582UraxozctVbmnb valve disorders (20 sources)Heart murmur; Translations: [Cardiac murmur, unspecified]Onset: 109629-22-8639HcjzyzvsZtbdbyktnpt (20 sources)Hemorrhoids; Translations: [Unspecified hemorrhoids]Onset: 368125-53-6037NykuovmdOdcanuv and fatigue (20 sources)Asthenia; Translations: [Other malaise]Onset: EpisodicNonspecific chest pain (2 sources)Chest pain; Translations: [Chest Pain]Onset: 56-40-4862Gccplqci Nutritional deficiencies (20 sources)Diet poor; Translations: [Nutritional deficiency, unspecified]Onset: 087985-52-2509XntfynirKmhwk diseases of veins and lymphatics (20 sources)Disorder of vein of lower extremity; Translations: [Venous insufficiency (chronic) (peripheral)]Onset: 189176-45-2942SwbyhcoqTtpla diseases of veins and lymphatics (20 sources)Peripheral venous insufficiency; Translations: [Venous insufficiency (chronic) (peripheral)]Onset: [id number] injuries and conditions due to external causes (20 sources)Angioedema; Translations: [Angioneurotic edema, initial encounter] Onset: 451205-87-9876YyumeaeyVblvl lower respiratory disease (20 sources)Chronic cough; Translations: [Chronic cough]Onset: 07-08-2022 53-76-9058LzucqqmiOvvwd lower respiratory disease (20 sources)Disorder of lung; Translations: [Other disorders of lung]Onset: 743067-62-5247XoaryhvjJrkbk nervous system disorders (20 sources)Postoperative pain ; Translations: [Other acute postprocedural pain] Onset: 321749-45-9829DxvxwlfqHdymd non-epithelial cancer of skin (20 sources)Basal cell carcinoma of face; Translations: [Basal cell carcinoma of skin of other parts of face]Onset: 017888-74-5288HwzwqluuPcfwf screening for suspected conditions (not mental disorders or infectious disease) (20 sources)Abnormal electrocardiogram [ECG] [EKG]; Translations: [Abnormal findings diagnostic imaging of liver+biliary tract]Onset: 16-97-3467Hcxzsbzr Other skin disorders (20 sources)Multiple actinic keratoses; Translations: [Actinic keratosis]Onset: 598739-18-6529OwukveyfXmbhn upper respiratory disease (20 sources)Nasal discharge; Translations: [Other specified disorders of nose and nasal sinuses]Onset: 881912-24-5100OkoyfudnMoqqb upper respiratory disease (20 sources)Other diseases of pharynx; Translations: [Other diseases of pharynx, not elsewhere classified]Onset: 716821-23-2351SbeevlykEivys upper respiratory disease (20 sources)Abscess of pharynx; Translations: [Other abscess of pharynx]Onset: 569084-01-0279OcyahnewOamou upper respiratory infections (1 source)Acute pharyngitis, unspecified; Translations: [ACUTE PHARYNGITIS UNSPECIFIED]Onset: 37-59-6068KyicphipLztn-; endo-; and myocarditis; cardiomyopathy (except that caused by tuberculosis or sexually transmitted disease) (20 sources)Cardiac tamponade; Translations: [Cardiac tamponade]Onset: 347321-34-5118SmwhffczIsibimhp codes; unclassified (20 sources)Insomnia; Translations: [Insomnia, unspecified]Onset: 07-08-2022 Resolved: 178500-16-4745CdgbpfdiZlgojgbc codes; unclassified (20 sources)Localized edema; Translations: [Localized edema]Onset: 07-08-2022 19-83-9446QjnmsoonLwszujtc codes; unclassified (20 sources)History of maze procedure for atrial fibrillation; Translations: [Other specified postprocedural states]Onset: 191514-13-1603Nsjexuav Residual codes; unclassified (20 sources)Edema of lower extremity; Translations: [Localized edema]Onset: 924038-73-9889UcwfqfwsEckboqkk codes; unclassified (20 sources)Patient encounter status; Translations: [Encounter for prophylactic measures, unspecified]Onset: 194118-86-6118FqzwrxuwEbgqfgbv codes; unclassified (2 sources)Other specified postprocedural states; Translations: [Other specified postprocedural states]Onset: 18-43-1951IpzjbcijQeksqvylvqlu (1 source)COUGH, UNSPECIFIED; Translations: [COUGH, UNSPECIFIED]Onset: 52-33-4900Csreqexambfm (1 source)Aneurysm of the ascending aorta, without rupture; Translations: [Aneurysm of the ascending aorta, without rupture]Onset: 54-13-1624Idngenbxwblx (2 sources)Acute pain of right uoai08-82-7704Wgzrk infection (20 sources)Herpes zoster; Translations: [Zoster without complications]Onset: 235441-33-6757Gevktcca Results Test NameValueInterpretationReference RangeFacilityAmbulatory Visit Summaryon [id number] Visit SummaryAmbulatory Visit Summary DC RASMUSSEN :1935 Visit Date:12/06/2024 Ambulatory Visit Instructions Your Diagnosis BPH with urinary obstruction Post-void dribbling Urinary frequency Your Care Team Attending Physician - RUTH Porter APRN, Briana Rene Primary Care Physician - NOLAN BAUTISTA MD This Is Your Medications List acetaminophen (Tylenol Extra Strength 500 mg oral tablet) ascorbic acid (Vitamin C 1000 mg oral tablet) atorvastatin (atorvastatin 20 mg Tab) cetirizine (cetirizine 10 mg Tab) diazepam (diazepam 5 mg Tab) diphenhydrAMINE (Benadryl 25 mg Cap) finasteride (finasteride 5 mg Tab) furosemide (Lasix 40 mg Tab) ipratropium nasal (Atrovent 0.03% [place]) levalbuterol (levalbuterol 1.25 mg/0.5 mL Concentrate) metoprolol (metoprolol 100 mg ER Tab) montelukast (Singulair 10 mg Tab) multivitamin (Vitamin B Complex oral capsule) nitroglycerin (nitroglycerin 0.4 mg SubL [place]) pantoprazole (Protonix 40 mg Tab-DR) potassium chloride (Potassium Chloride (Kio-Colx-Srn 10)) tamsulosin (tamsulosin 0.4 mg Cap) tamsulosin (tamsulosin 0.4 mg Cap) zolpidem (Ambien 10 mg Tab) Procedures Performed Cystoscope (03/24/2022), Open removal of foreign body from left atrium (09/07/2019), Upper GI (gastrointestinal) endoscopy (02/01/2019), Laparoscopic cholecystectomy (12/2018), Colonoscopy (05/06/2017), Hernia repair (2002), Angioplasty (1995), Vasectomy (1968), Tonsillectomy (1954), Cataract, Anusha cystectomy, Excision of parapharyngeal mass, Tonsillectomy. Discharge Vitals Temperature (Tympanic) 36.0 ???C Heart Rate (Peripheral) 65 Blood Pressure 130/72 Height 188 cm Height 74 in Weight 92.8 kg Weight 204.589 lb BMI 26.26 What to do next Scheduled Follow-Up Appointments Thursday2025 11:00 AM EST With: RUTH Porter APRN, [place] Where: [facility] [place] [address] [place] [address]- You Need to Schedule the Following Appointments Follow Up with RUTH Porter APRN, Briana Rene, ALINA, URL When: Comments: 3 mos Where: Medications What How Much When Why Instructions Unchanged acetaminophen (Tylenol Extra Strength 500 [...] Cap) By Mouth Every 6 hours Unchanged finasteride (finasteride 5 mg Tab) 1 Tablets By Mouth Every day Unchanged furosemide (Lasix 40 mg Tab) By Mouth Every day Unchanged ipratropium nasal (Atrovent 0.03% [place]) 2 Sprays Nasal Inhalation 3 times a day Unchanged levalbuterol (levalbuterol 1.25 mg/ 0.5 mL Concentrate) Nebulized inhalation (aerosol) 3 times a day Unchanged metoprolol (metoprolol 100 mg ER Tab) By Mouth Every day Unchanged montelukast (Singulair 10 mg Tab) By Mouth Every day Unchanged multivitamin (Vitamin B Complex oral capsule) By Mouth Every day Unchanged nitroglycerin (nitroglycerin 0.4 mg SubL [place]) Sublingual Every 5 minutes Unchanged pantoprazole (Protonix 40 mg Tab-DR) By Mouth Every day Unchanged potassium chloride (Potassium Chloride (Zpc-Ugxk-Kgn 10)) By Mouth 2 times a day Unchanged tamsulosin (tamsulosin 0.4 mg Cap) 1 Capsules By Mouth Every day Unchanged tamsulosin (tamsulosin 0.4 mg Cap) 2 Capsules By Mouth At bedtime BPH with urinary obstruction Unchanged zolpidem (Ambien 10 mg Tab) 1 Tablets By Mouth Once a day (at bedtime) as needed for for sleep Allergies Ultram (Paranoid disorder, Hallucinations, Paranoia) acetaminophen (Unknown) albuterol (Migraine) codeine-guaifenesin (Rash) levoFLOXacin (Rash) oxyCODONE (Hallucinations) thiopental (Unknown) traMADol (Hallucinations) Problems Ongoing - Any problem that you are currently receiving treatment for. A-fib Actinic keratoses Alcohol dependency Anemia Angio-edema Arrhythmia Arthritis Asthma Atherosclerosis of [place] coronary artery of [place] heart without angina pectoris Atrial fibrillation Basal cell carcinoma of skin BPH with urinary obstruction Carcinoma of prostate Chronic cholecystitis Chronic cough Chronic obstructive pulmonary disease Congestive heart failure Coronary artery disease COVID-19 Debility Difficulty walking Diverticulosis Edema due to malnutrition Edema of lower extremity Esophageal reflux Esophagitis Former smoker Generalized osteoarthritis Generalized seizure GERD (gastroesophageal reflux disease) Heart disease Heart murmur Hemorrhoids Hyperlipidemia Hypoalbuminemia Hypokalemia Incomplete bladder emptying Insomnia Menieres disease Myocardial infarction Otitis externa Perennial allergic rhinitis Ph (more content not included)...[facility] Noteon [id number] Office/Clinic NoteUrology Office/Clinic Note Chief Complaint 6MO f/u HPI Staff 6 month follow up Previous DX: BPH w/urinary obstruction, incomplete bladder emptying, split urinary stream S/p Cysto/UD 03/24/22 by [facility] *-Start Finasteride 5mg qd, -Decrease Tamsulosin 0.4mg qd IPSS Score:13 Pt unable to provide UA today. Pt states things are the same as last time no improvement with medication. weak stream, stop and gostream. History of Present Illness Tests reviewed: reviewed UA I have reviewed the previous health record information and history for this patient from Briana Porter NP. I have reviewed and verified the staff HPI to be accurate for this encounter. Review of Systems PHQ Score Initial Depression Screen Score: 0 SCORE ROS - Provider Constitutional: denies weight loss, denies hot flashes. Eyes: denies eye problems. Gastrointestinal: denies nausea, denies vomiting. Cardiovascular: denies chest pain or angina. Integumentary: no dryness Musculoskeletal: denies musculoskeletal symptoms. ENMT: denies otolaryngeal symptoms. Respiratory: no shortness of breath. Heme/Lymph: denies easy bleeding tendency, denies easy bruising tendency. Psychiatric: no confusion, no anxiety. Genitourinary: See HPI. Physical Exam Vitals & Measurements T: 36.0 ???C(Tympanic) HR: 65(Peripheral) BP: 130/72 HT: 74 in HT: 188 cm WT: 92.8 kg WT: 204.589 lb BMI: 26.26 General Appearance: alert, no distress, well nourished, well developed male. Assessment/Plan Dc 89 yo male presents here today for a 6 mos f/u. 1. BPH with urinary obstruction (N40.1: Benign prostatic hyperplasia with lower urinary tract symptoms) S/p cysto 03/24/22 - 4 cm prostatic urethra, lateral lobe hypertrophy, no median lobe. Moderate universal protrusion of the prostate into the bladder lumen. Bladder w/o tumors or stones, moderate trabeculation (2). No evidence of stricture. IPSS 13 (15, 17), QoL (5) PVR 05/28/24 - 85 mL - [RANDOM SCAN] Unable to give urine sample today. Taking tamsulosin 0.4mg qd. Started Finasteride 5mg qd at prior OV. Denies bothersome SEs at this time but shares he is still not seeing any improvement w/ urinary sxs. Pt still c/o worsening urinarysxs since prior OV. His biggest complaint today is his weak stream and post-void dribbling. Rediscussed likely worsening of prostate enlargement contributing this. As pt is not seeing sxs improvement with the Finasteride, we discussed having another cysto done. Pt feels he has only been taking Finasteride since September despite script being filled in May. He would like to trial 3 more moson Finasteride before considering Urolift. -Cont Finasteride 5mg qd -Cont Tamsulosin 0.4mg qd Follow in 3 mos per pt preference. 2. Post-void dribbling (N39.43: Post-void dribbling) Most bothersome urinary sx Reports worsening of pre and postvoid dribbling since prior OV. States the inital/end stream is split and typically does get him wet. Likely d/t BPH. See #1 3. Urinary frequency (R35.0: Frequency of micturition) q1-2 hr He attributes this to his furosemide, not bothersome to him at this time -cont to monitor Follow-up With When Contact Information [employer]END[employer], [employer]PER[employer], Briana X, FAM, URL Additional Instructions: 3 mos Patient Education Benign Prostatic Hyperplasia Flavia Draper, personally scribed for RUTH Marc APRN on 12/06/2024 11:42:25. . Documentation recorded by the scribbrianna Brown accurately reflects the services(s) I performed and decisions made by me. Authenticated by Briana Porter APRN, FNP-C on 12/06/2024 12:03:38. Portions of this record may have been created with voice recognition artificial intelligence software, specifically [employer], Rift[employer] and or Lakoo. Substitutions may have occurred due to the inherent limitations of voice recognition and artificial intelligence software. Problem List/Past Medical History Ongoing A-fib Actinic keratoses Alcohol dependency Anemia Angio-edema Arrhythmia Arthritis Asthma Atherosclerosis of [place] coronary artery of [place] heart without angina pectoris Atrial fibrillation Basal cell carcinoma of skin BPH with urinary obstruction Carcinoma of prostate Chronic cholecystitis Chronic cough Chronic obstructive pulmonary disease Congestive heart failure Coronary artery disease COVID-19 Debility Difficulty walking Diverticulosis Edema due to malnutrition Edema of lower extremity Esophageal reflux Esophagitis Former smoker Generalized osteoarthritis Generalized seizure GERD (gastroesophageal reflux disease) Heart disease Heart murmur Hemorrhoids Hyperlipidemia Hypoalbuminemia Hypokalemia Incomplete bladder emptying Insomnia Menieres disease Myocardial infarction Otitis externa Perennial allergic rhinitis Pharyngeal abscess Pharyngeal mass (more content not included)...[facility] HospitalComment on above: Result Comment: Electronically Signed By: RUTH Porter APRN, [place] X\.br\Date and Time Signed: 12/06/24 12:03 EDT\.br\Electronically Co-Signed By: Flavia Brown\.br\Date and Time Co-Signed: 12/06/24 11:42 EDTMR KNEE RIGHT WO IV CONTRASTon [id number] KNEE RIGHT WO IV CONTRASTEXAMINATION/TECHNIQUE: MR KNEE RIGHT WO IV CONTRAST HISTORY: Right knee pain. Pain for 6 months. COMPARISON: Radiographs 07/26/2024. RESULT: MENISCI: Medial Meniscus: Horizontal tearing centered near the junction of the posterior horn and body, contacting the inferior articular surface, with portions of the meniscus protruding toward the medial gutter. Lateral Meniscus: Small horizontal tear near the junction of the posterior horn and body, contacting the inferior articular surface, without significant meniscal displacement. LIGAMENTS: ACL, PCL, MCL, and LCL complex intact. CARTILAGE: Large areas of full-thickness chondral loss involving the patella, especially of the lateral facet, with adjacent joint body or joint bodies with the largest measuring around 15 mm in length adjacent to the lateral facet. Some subchondral cystic change involving the patella. Small to moderate areas of full-thickness fissuring involving the trochlea with subchondral cystic change. Apparent diffuse low to high-grade partial-thickness chondral loss involving the medial femoral condyle. Osteophytes. TENDONS: Mild distal quadriceps and patellar tendinosis, without tear. Popliteus intact. BONES AND MARROW: No evidence of fracture or bone marrow replacing process. MUSCLES: Muscle bulk and signal intensity are normal. JOINT FLUID AND SYNOVIUM: No joint effusion. Joint body or bodies as above. No synovitis. No Ayala's cyst. OTHER: Varicose vessel medially. IMPRESSION: Medial and lateral meniscal tears. Osteoarthritis, advanced involving the patella, with joint body or bodies. ELECTRONICALLY SIGNED BY: Nolan Izaguirre MDNormalNot AvailableMR Knee - right WO contraston 07-27-2024 Medial and lateral meniscal tears. Osteoarthritis, advanced involving the patella, with joint body or bodies. ELECTRONICALLY SIGNED BY: Nolan Izaguirre MDIMAGINGEXAMINATION/TECHNIQUE: MR KNEE RIGHT WO IV CONTRAST HISTORY: Right knee pain. Pain for 6 months. COMPARISON: Radiographs 07/26/2024. RESULT: MENISCI: Medial Meniscus: Horizontal tearing centered near the junction of the posterior horn and body, contacting the inferior articular surface, with portions of the meniscus protruding toward the medial gutter. Lateral Meniscus: Small horizontal tear near the junction of the posterior horn and body, contacting the inferior articular surface, without significant meniscal displacement. LIGAMENTS: ACL, PCL, MCL, and LCL complex intact. CARTILAGE: Large areas of full-thickness chondral loss involving the patella, especially of the lateral facet, with adjacent joint body or joint bodies with the largest measuring around 15 mm in length adjacent to the lateral facet. Some subchondral cystic change involving the patella. Small to moderate areas of full-thickness fissuring involving the trochlea with subchondral cystic change. Apparent diffuse low to high-grade partial-thickness chondral loss involving the medial femoral condyle. Osteophytes. TENDONS: Mild distal quadriceps and patellar tendinosis, without tear. Popliteus intact. BONES AND MARROW: No evidence of fracture or bone marrow replacing process. MUSCLES: Muscle bulk and signal intensity are normal. JOINT FLUID AND SYNOVIUM: No joint effusion. Joint body or bodies as above. No synovitis. No Ayala's cyst. OTHER: Varicose vessel medially. Nolan Gamboa MD - 07/27/2024 EXAMINATION/TECHNIQUE: MR KNEE RIGHT WO IV CONTRAST HISTORY: Right knee pain. Pain for 6 months. COMPARISON: Radiographs 07/26/2024. RESULT: MENISCI: Medial Meniscus: Horizontal tearing centered near the junction of the posterior horn and body, contacting the inferior articular surface, with portions of the meniscus protruding toward the medial gutter. Lateral Meniscus: Small horizontal tear near the junction of the posterior horn and body, contacting the inferior articular surface, without significant meniscal displacement. LIGAMENTS: ACL, PCL, MCL, and LCL complex intact. CARTILAGE: Large areas of full-thickness chondral loss involving the patella, especially of the lateral facet, with adjacent joint body or joint bodies with the largest measuring around 15 mm in length adjacent to the lateral facet. Some subchondral cystic change involving the patella. Small to moderate areas of full-thickness fissuring involving the trochlea with subchondral cystic change. Apparent diffuse low to high-grade partial-thickness chondral loss involving the medial femoral condyle. Osteophytes. TENDONS: Mild distal quadriceps and patellar tendinosis, without tear. Popliteus intact. BONES AND MARROW: No evidence of fracture or bone marrow replacing process. MUSCLES: Muscle bulk and signal intensity are normal. JOINT FLUID AND SYNOVIUM: No joint effusion. Joint body or bodies as above. No synovitis. No Ayala's cyst. OTHER: Varicose vessel medially. IMPRESSION: Medial and lateral meniscal tears. Osteoarthritis, advanced involving the patella, with joint body or bodies. ELECTRONICALLY SIGNED BY: Nolan Izaguirre MD [facility] HealthcareRadiology Study observation (narrative)[facility] Knee - right WO contrastOrdered By: Nolan Izaguirre on [id number] [employer] Work Phone: XR Knee - right 1 or 2 Viewson [id number] Result: AP and lateral of right knee showed varus deformity. There was narrowing of the medial joint line with evidence of flattening of the articular surfaces to the medial tibial plateau and medial femoral condyle. There was evidence of subchondral sclerosis to the medial joint line and patellofemoral joint. There is marginal osteophytes noted to the medial joint line and patellofemoral joint. There is no evidence of fracture dislocations. Bony structures viewed showed appropriate ossification. Impression: Mild varus deforming arthritic degeneration , right knee. No acute bony process noted. [facility] CenterRad[facility] Study observation (narrative)[facility] HealthcareCBC (INCLUDES DIFF/PLT)on [id number] (Bld) [#/Vol]0.02 10*3/uLNormal0-200Quest DiagnosticsComment on above:Performed By: #### 6399, 98742, 7600 #### [facility] [place] [address] Teacher [employer]: Ryan Quiñonez MDBasophils/100 WBC (Bld)0.3 %NormalQuest DiagnosticsComment on above:Performed By: #### 6399, 11940, 7600 #### [facility] [place] [address] Teacher [employer]: Ryan Quiñonez MDEosinophils (Bld) [#/Vol]0.313 10*3/uLNormal 15-500Quest DiagnosticsComment on above:Performed By: #### 6399, 92097, 7600 #### [facility] [place] [address] Teacher [employer]: Ryan BURKSosinophils/100 WBC (Bld)4.6 %NormalQuest DiagnosticsComment on above:Performed By: #### 6399, 85270, 7600 #### [facility] [place] [address] Teacher [employer]: Ryan Quiñonez MDErythrocyte distribution width (RBC) [Ratio] 13.4 %Jlrqyy82.0-15.0Quest DiagnosticsComment on above:Performed By: #### 6399, 46602, 7600 #### [facility] of [address], [address] [place] [address] Teacher [employer]: Ryan Quiñonez MDHematocrit (Bld) [Volume fraction]41.5 %Normal 38.5-50.0Quest DiagnosticsComment on above:Performed By: #### 6399, 44578, 0 #### [facility] of [address], [address] [place] [address] Teacher [employer]: Ryan Quiñonez MDHemoglobin (Bld) [Mass/Vol]13.9 g/dLNormal 13.2-17.1Quest DiagnosticsComment on above:Performed By: #### 6399, 30229, 0 #### [facility] of [address], [address] [place] [address] Teacher [employer]: Ryan Quiñonez MDLymphocytes (Bld) [#/Vol]2.292 10*3/uLNormal 850-3900Quest DiagnosticsComment on above:Performed By: #### 6399, 96593, 0 #### [facility] of [place] [address] Teacher [employer]: Ryan Quiñonez MDLymphocytes/100 WBC (Bld)33.7 %NormalQuest DiagnosticsComment on above:Performed By: #### 6399, 47946, 0 #### [facility] of [address], [address] [place] [address] Teacher [employer]: Ryan Quiñonez MDMCH (RBC) [Entitic mass]30.5 bbSrjlhy39.0-33.0 Quest DiagnosticsComment on above:Performed By: #### 6399, 37161, 7600 #### [facility] of [address], [address] [place] [address] Teacher [employer]: Ryan Quiñonez MDMCHC (RBC) [Mass/Vol]33.5 g/oKJqeobs91.0-36.0 Quest DiagnosticsComment on above:Result Comment: For adults, a slight decrease in the calculated MCHC value (in the range of 30 to 32 g/dL) is most likely not clinically significant; however, it should be interpreted with caution in correlation with other red cell parameters and the patient's clinical condition.Performed By: #### 6399, 64433, 7600 #### [facility] of [address], [address] [place] [address] Teacher [employer]: Ryan Quiñonez MDMCV (RBC) [Entitic vol]91.0 hWPjfuoy78.0-100.0 Quest DiagnosticsComment on above:Performed By: #### 6399, 31396, 7600 #### [facility] [place] [address] Teacher [employer]: Ryan Quiñonez MDMonocytes (Bld) [#/Vol]0.612 10*3/uLNormal 200-950Quest DiagnosticsComment on above:Performed By: #### 6399, 74108, 7600 #### [facility] of [place] [address] Teacher [employer]: Ryan Quiñonez MDMonocytes/100 WBC (Bld)9.0 %NormalQuest DiagnosticsComment on above:Performed By: #### 6399, 73178, 7600 #### [facility] of [place] [address] Teacher Of [employer]: Ryan Quiñonez MDNeutrophils (Bld) [#/Vol]3.563 10*3/uLNormal 1500-7800Quest DiagnosticsComment on above:Performed By: #### 6399, 08090, 7600 #### [facility] of [address], [address] [place] [address] Teacher [employer]: Ryan Quiñonez MDNeutrophils/100 WBC (Bld)52.4 %NormalQuest DiagnosticsComment on above:Performed By: #### 6399, 07982, 7600 #### [facility] of [address], [address] [place] [address] Teacher [employer]: Ryan Maddoxtejimmy mean volume (Bld) [Entitic vol]10.8 fLNormal7.5-12.5Quest DiagnosticsComment on above:Performed By: #### 6399, 15215, 7600 #### [facility] of [address], [address] [place] [address] Teacher [employer]: Ryan DELACRUZlatelets (Bld) [#/Vol]231 10*3/uLNormal 140-400Quest DiagnosticsComment on above:Performed By: #### 6399, 34911, 7600 #### [facility] of [address], [address] [place] [address] Teacher [employer]: Ryan Quiñonez MDRBC (Bld) [#/Vol]4.56 10*6/uLNormal4.20-5.80 Quest DiagnosticsComment on above:Performed By: #### 6399, 66321, 7600 #### [facility] of [address], [address] [place] [address] Teacher [employer]: Ryan Quiñonez MDWBC (Bld) [#/Vol]6.8 10*3/uLNormal3.8-10.8 Quest DiagnosticsComment on above:Performed By: #### 6399, 09572, 7600 #### [facility] of [address], [address] [place] [address] Teacher [employer]: Ryan Quiñonez MDCOMPREHENSIVE METABOLIC PANELon 06-21-2024 Albumin [Mass/Vol]4.0 g/dLNormal3.6-5.1Quest DiagnosticsComment on above: Performed By: #### 6399, 33583, 7600 #### [facility] of [address], [address] [place] [address] Teacher Of Family And Consumer Science: Ryan Quiñonez MDAlbumin/Globulin [Mass ratio]1.2 {ratio}Normal 1.0-2.5Quest DiagnosticsComment on above:Performed By: #### 6399, 48438, 7600 #### [facility] of [address], [address] [place] [address] Teacher Of Family And Consumer Science: Ryan Quiñonez MDALP [Catalytic activity/Vol]175 U/LIczv94-929 [facility] DiagnosticsComment on above:Performed By: #### 6399, 35342, 7600 #### [facility] of [address], [address] [place] [address] Teacher Of Family And Consumer Science: Ryan Quiñonez MDALT [Catalytic activity/Vol]34 U/LNormal9-46 [facility]osticsComment on above:Performed By: #### 6399, 87876, 7600 #### [facility] of [address], [address] [place] [address] Teacher Of Family And Consumer Science: Ryan Quiñonez MDAST [Catalytic activity/Vol]39 U/XLfzt02-76 [facility]osticsComment on above:Performed By: #### 6399, 55256, 7600 #### [facility] of [address], [address] [place] [address] Teacher Of Family And Consumer Science: Ryan Quiñonez MDBilirubin [Mass/Vol]0.7 mg/dLNormal0.2-1.2 [facility]osticsComment on above:Performed By: #### 6399, 99987, 7600 #### [facility] of [address], [address] [place] [address] Teacher Of Family And Consumer Science: Ryan Quiñonez MDBUN/CREATININE RATIOSEE NOTE:Normal6-22Quest DiagnosticsComment on above:Result Comment: Not Reported: BUN and Creatinine are within reference range.Performed By: #### 6399, 65541, 7600 #### [facility] of [place] [address] Teacher Of Family And Consumer Science: Ryan Quiñonez MDCalcium [Mass/Vol]8.8 mg/dLNormal8.6-10.3Quest DiagnosticsComment on above:Performed By: #### 6399, 62245, 7600 #### [facility] of [address], [address] [place] [address] Teacher Of Family And Consumer Science: Ryan Quiñonez MDChloride [Moles/Vol]104 mmol/KAoxmus45-541 [facility] DiagnosticsComment on above:Performed By: #### 6399, 16131, 7600 #### [facility] of [address], [address] [place] [address] Teacher Of Family And Consumer Science: Ryan Quiñonez MDCO2 [Moles/Vol]27 mmol/ERkswiq32-58Oqegc DiagnosticsComment on above:Performed By: #### 6399, 20251, 0 #### [facility] of [place] [address] Teacher Of Family And Consumer Science: Ryan BUSTAMANTEreatinine [Mass/Vol]1.20 mg/dLNormal0.70-1.22 [facility] DiagnosticsComment on above:Performed By: #### 6399, 34796, 0 #### [facility] of [place] [address] Teacher Of Family And Consumer Science: Ryan Quiñonez MDGFR/1.73 sq M.predicted among non-blacks MDRD (S/P/Bld) [Vol rate/Area]59 mL/min/{1.73_m2}Low> OR = 60Quest DiagnosticsComment on above:Performed By: #### 6399, 40396, 0 #### [facility] of [place] [address] Teacher Of Family And Consumer Science: Ryan Quiñonez MDGlobulin (S) [Mass/Vol]3.4 g/dLNormal1.9-3.7 [facility] DiagnosticsComment on above:Performed By: #### 6399, 74657, 7600 #### [facility] of [place] [address] Teacher Of Family And Consumer Science: Ryan Quiñonez MDGlucose [Mass/Vol]84 mg/rMHeudwr96-97Dmaxn DiagnosticsComment on above:Result Comment: Fasting reference intervalPerformed By: #### 6399, 81319, 7600 #### [facility] of [address], [address] [place] [address] Teacher Of Family And Consumer Science: Ryan Quiñonez MDPotassium [Moles/Vol]4.1 mmol/LNormal3.5-5.3 [facility]osticsComment on above:Performed By: #### 6399, 42379, 7600 #### [facility] of [address], [address] [place] [address] Teacher Of Family And Consumer Science: Ryan Quiñonez MDProtein [Mass/Vol]7.4 g/dLNormal6.1-8.1Quest DiagnosticsComment on above:Performed By: #### 6399, 37840, 7600 #### [facility] of [place] [address] Teacher Of Family And Consumer Science: Ryan uQiñonez MDSodium [Moles/Vol]141 mmol/FXdpruw358-842Xxctr DiagnosticsComment on above:Performed By: #### 6399, 58515, 7600 #### [facility] of [place] [address] Teacher Of Family And Consumer Science: Ryan Quiñonez MDUrea nitrogen [Mass/Vol]17 mg/dLNormal7-25 [facility]osticsComment on above:Performed By: #### 6399, 47227, 7600 #### [facility] of [place] [address] Teacher Of Family And Consumer Science: Ryan Quiñonez MDLIPID PANEL, STANDARD [id number] [Mass/Vol]145 mg/dLNormal<200Quest DiagnosticsComment on above:Order Comment: FASTING:YES FASTING: YESPerformed By: #### 6399, 86438, 7600 #### [facility] of [place] [address] Teacher Of Family And Consumer Science: Ryan Quiñonez MDCholesterol in HDL [Mass/Vol]45 mg/dLNormal> OR = 40Quest DiagnosticsComment on above:Order Comment: FASTING:YES FASTING: YESPerformed By: #### 6399, 99076, 7600 #### [facility] [address], [address] [place] [address] Teacher Of Family And Consumer Science: Ryan BUSTAMANTEholesterol in LDL [Mass/Vol]84 mg/dLNormal [facility] DiagnosticsComment on above:Order Comment: FASTING:YES FASTING: YESResult Comment: Reference range: <100 Desirable range <100 mg/dL for primary prevention; <70 mg/dL for patients with CHD or diabetic patients with > or = 2 CHD risk factors. LDL-C is now calculated using the Mann calculation, which is a validated novel method providing better accuracy than the Friedewald equation in the estimation of LDL-C. Franck SS et al. KEIRA. 2013;310(19): 8147-1222 (http://education.Spotie/faq/TUY512)Performed By: #### 1199, 60788, 7600 #### [facility] [address], [address] [place] [address] Teacher Of Family And Consumer Science: Ryan BUSTAMANTEholestjoe.total/Cholesterol in HDL [Mass ratio]3.2 {ratio}Normal<5.0Quest DiagnosticsComment on above:Order Comment: FASTING:YES FASTING: YESPerformed By: #### 6399, 08630, 7600 #### [facility] [address], [address] [place] [address] Teacher Of Family And Consumer Science: Ryan MORENO HDL DZOZEDWMKHU550 mg/dL (calc)Normal<130 [facility] DiagnosticsComment on above:Order Comment: FASTING:YES FASTING: YESResult Comment: For patients with diabetes plus 1 major ASCVD risk factor, treating to a non-HDL-C goal of <100 mg/dL (LDL-C of <70 mg/dL) is considered a therapeutic option.Performed By: #### 6399, 15774, 7600 #### [facility] [address], [address] [place] [address] Teacher Of Family And Consumer Science: Ryan Quiñonez MDTriglyceride [Mass/Vol]71 mg/dLNormal<150Quest DiagnosticsComment on above:Order Comment: FASTING:YES FASTING: YESPerformed By: #### 7603, 53179, 1435 #### [facility] [address] [facility], [address] [place] [address] Teacher Of Family And Consumer Science: Ryan Quiñonez Cox Monettulatory Visit Summaryon 05-31-2024 Ambulatory Visit SummaryAmbulatory Visit Summary DC RASMUSSEN :1935 Visit Date:05/31/2024 Ambulatory Visit Instructions Your Diagnosis BPH with urinary obstruction Post-void dribbling Urinary frequency Your Care Team Attending Physician - RUTH Porter APRN, Briana Rene Primary Care Physician - NOLAN BAUTISTA MD This Is Your Medications List finasteride (finasteride 5 mg Tab) tamsulosin (tamsulosin 0.4 mg Cap) tamsulosin (tamsulosin 0.4 mg Cap) Contact prescribing physician if questions or concerns acetaminophen (Tylenol Extra Strength 500 mg oral tablet) ascorbic acid (Vitamin C 1000 mg oral tablet) atorvastatin (atorvastatin 20 mg Tab) cetirizine (cetirizine 10 mg Tab) diazepam (diazepam 5 mg Tab) diphenhydrAMINE (Benadryl 25 mg Cap) furosemide (Lasix 40 mg Tab) ipratropium nasal (Atrovent 0.03% [place]) levalbuterol (levalbuterol 1.25 mg/0.5 mL Concentrate) metoprolol (metoprolol 100 mg ER Tab) montelukast (Singulair 10 mg Tab) multivitamin (Vitamin B Complex oral capsule) nitroglycerin (nitroglycerin 0.4 mg SubL [place]) pantoprazole (Protonix 40 mg Tab-DR) potassium chloride (Potassium Chloride (Mku-Izvo-Byp 10)) zolpidem (Ambien 10 mg Tab) Procedures Performed Cystoscope (03/24/2022), Open removal of foreign body from left atrium (09/07/2019), Upper GI (gastrointestinal) endoscopy (02/01/2019), Laparoscopic cholecystectomy (12/2018), Colonoscopy (05/06/2017), Hernia repair (2002), Angioplasty (1995), Vasectomy (1968), Tonsillectomy (1954), Cataract, Anusha cystectomy, Excision of parapharyngeal mass, Tonsillectomy. Discharge Vitals Temperature (Temporal Artery) 36.4 ???C Heart Rate (Peripheral) 62 Blood Pressure 132/72 Height 188 cm Height 74 in Weight 91.9 kg Weight 202.605 lb BMI 26 What to do next Scheduled Follow-Up Appointments Thursday 11:40 AM EDT With: RUTH Porter APRN, Briana Rene Where: [facility] [address] [place] [address]- You Need to Schedule the Following Appointments Follow Up with RUTH Porter APRN, Briana Rene, ALINA, URL When: Where: Medications What How Much When Why Instructions New finasteride (finasteride 5 mg Tab) 1 Tablets By Mouth Every day Refills: 3 Pickup at [facility] Changed tamsulosin (tamsulosin 0.4 mg Cap) 1 Capsules By Mouth Every day Pickup at [facility] Changed tamsulosin (tamsulosin 0.4 mg Cap) 2 Capsules By Mouth At bedtime BPH with urinary obstruction Pickup at [facility] Unchanged acetaminophen (Tylenol Extra Strength 500 mg oral tablet) By Mouth Every 6 hours Contact prescribing physician if questions or concerns Unchanged ascorbic acid (Vitamin C 1000 mg oral tablet) By Mouth Every day Contact prescribing physician if questions or concerns Unchanged atorvastatin (atorvastatin 20 mg Tab) By Mouth Every day Contact prescribing physician ifquestions or concerns Unchanged cetirizine (cetirizine 10 mg Tab) By Mouth Every day Contact prescribing physician if questions or concerns Unchanged diazepam (diazepam 5 mg Tab) By Mouth Every 8 hours Contact prescribing physician if questions or concerns Unchanged diphenhydrAMINE (Benadryl 25 mg Cap) By Mouth Every 6 hours Contact prescribing physicianif questions or concerns Unchanged furosemide (Lasix 40 mg Tab) By Mouth Every day Contact prescribing physician if questions or concerns Unchanged ipratropium nasal (Atrovent 0.03% [place]) 2 Sprays Nasal Inhalation 3 times a day Contact prescribing physician if questions or concerns Unchanged levalbuterol (levalbuterol 1.25 mg/ 0.5 mL Concentrate) Nebulized inhalation (aerosol) 3 times a day Contact prescribing physician if questions or concerns Unchanged metoprolol (metoprolol 100 mg ER Tab) By Mouth Every day Contact prescribing physician ifquestions or concerns Unchanged montelukast (Singulair 10 mg Tab) By Mouth Every day Contact prescribing physician if questions or concerns Unchanged multivitamin (Vitamin B Complex oral capsule) By Mouth Every day Contact prescribing physician if questions or concerns Unchanged nitroglycerin (nitroglycerin 0.4 mg SubL [place]) Sublingual Every 5 minutes Contact prescribing physician if questions or concerns Unchanged pantoprazole (Protonix 40 mg Tab-DR) By Mouth Every day Contact prescribing physician if questions or concerns Unchanged potassium chloride (Potassium Chloride (Hvt-Nino-Qbe 10)) By Mouth 2 times a day Contact prescribing physician if questions or concerns Unchanged zolpidem (Ambien 10 mg Tab) 1 Tablets By Mouth Once a day (at bedtime) as needed for for sleep Contact prescribing physician if questions or concerns Pharmacy Information [facility]: [address] [place], [place] [id number] [phone] Allergies Ultram (Paranoid disorder, Hallucinations, Paranoia) acetaminophen (Unknown) albuter (more content not included)...[facility] Noteon [id number] Office/Clinic NoteUrology Office/Clinic Note Chief Complaint 4/5 wk F/U HPI Staff 4/6 week follow up Previous DX: BPH w/urinary obstruction, incomplete bladder emptying, split urinary stream S/p Cysto/UD 03/24/22 by [facility] *Flomax 0.4mg qd pt unable to give UA today. Pt states things have been the same. pt hasn't noticed any improvement with flomax. pt states does not feel like he is emptying his bladder completely every time. History of Present Illness Tests reviewed: UA I have reviewed the previous health record information and history for this patient from RUTH Marc APRN. I have reviewed and verified the staff HPI to be accurate for this encounter. Review of Systems PHQ Score Initial Depression Screen Score: 0 SCORE ROS - Provider Constitutional: denies weight loss, denies hot flashes. Eyes: denies eye problems. Gastrointestinal: denies nausea, denies vomiting. Cardiovascular: denies chest pain or angina. Integumentary: no dryness Musculoskeletal: denies musculoskeletal symptoms. ENMT: denies otolaryngeal symptoms. Respiratory: no shortness of breath. Heme/Lymph: denies easy bleeding tendency, denies easy bruising tendency. Psychiatric: no confusion, no anxiety. Genitourinary: See HPI. Physical Exam Vitals & Measurements T: 36.4 ???C(Temporal Artery) HR: 62(Peripheral) BP: 132/72 HT: 188 cm HT: 74 in WT: 91.9 kg WT: 202.605 lb BMI: 26 General Appearance: alert, no distress, well nourished, well developed male. Assessment/Plan Dc 89 yo male presents here today for a 6 week f/u. 1. BPH with urinary obstruction (N40.1: Benign prostatic hyperplasia with lower urinary tract symptoms) s/p cysto 03/24/22 - 4 cm prostatic urethra, lateral lobe hypertrophy, no median lobe. Moderate universal protrusion of the prostate into the bladder lumen. Bladder w/o tumors or stones, moderate trabeculation (2). No evidence of stricture. IPSS 15 (17), QoL (5) PVR today 85 mL - [RANDOM SCAN] No UA provided in office today Currently taking tamsulosin 0.4mg BID. Increased the Tamsulosin at last OV. Denies bothersome SEs at this time but shares he is not seeing any improvement w/ urinary sxs. Pt still c/o worsening urinary sxs since prior OV. Primarily bothered by pre/post-void dribbling. Rediscussed likely worsening of prostate enlargement contributing this. We discussed possibility oftrialing of prostate shrinking med. Pt opts to trial prostate shrinking med. Will send Finasteride 5mg to pharmacy, SEs were discussed. Pt knows to contact our office with any bothersome SEs. If not seeing any improvement with the Finasteride, we discussed having another cysto done, pt agrees. -Start Finasteride 5mg qd -Decrease Tamsulosin 0.4mg qd Follow in 6months 2. Post-void dribbling (N39.43: Post-void dribbling) Most bothersome urinary sx Reports worsening of pre and postvoid dribbling since prior OV. States the inital/end stream is split and typically does get him wet. Likely d/t BPH. See #1 3. Urinary frequency (R35.0: Frequency of micturition) q1-2 hr he attributes this to his furosemide, not bothersome to him at this time -cont to monitor Follow-up With When Contact Information RUTH Porter APRN, Briana Rene, FAM, URL Additional Instructions: Follow in 6months Patient Education Benign Prostatic Hyperplasia I, Skyla Ramos, personally scribed for RUTH Marc APRN on 05/31/2024 10:42:40. . Documentation recorded by the bolivar Ramos accurately reflects the services(s) I performed and decisions made by me. Authenticated by Briana Porter APRN, FNP-C on 05/31/2024 10:44:04. Problem List/Past Medical History Ongoing A-fib Actinic keratoses Alcohol dependency Anemia Angio-edema Arrhythmia Arthritis Asthma Atherosclerosis of [place] coronary artery of [place] heart without angina pectoris Atrial fibrillation Basal cell carcinoma of skin BPH with urinary obstruction Carcinoma of prostate Chronic cholecystitis Chronic cough Chronic obstructive pulmonary disease Congestive heart failure Coronary artery disease COVID-19 Debility Difficulty walking Diverticulosis Edema due to malnutrition Edema of lower extremity Esophageal reflux Esophagitis Former smoker Generalized osteoarthritis Generalized seizure GERD (gastroesophageal reflux disease) Heart disease Heart murmur Hemorrhoids Hyperlipidemia Hypoalbuminemia Hypokalemia Incomplete bladder emptying Insomnia Menieres disease Myocardial infarction Otitis externa Perennial allergic rhinitis Pharyngeal abscess Pharyngeal mass Poor diet Post-void dribbling Pure hypercholesterolemia Rhinorrhea Schatzki's ring Seizure disorder Sensorineural hearing loss Shingles Small airways disease Split urinary stream Spondylosis of cervical region without myelopathy or radiculopathy Steatosis of liver Terminal e (more content not included)...[facility] Comment on above:Result Comment: Electronically Signed By: RUTH Porter APRN, Briana Rene\.br\Date and Time Signed: 05/31/24 10:44 EDT\.br\Electronically Co- Signed By: Skyla Ramos\.br\Date and Time Co-Signed: 05/31/24 10:42 EDTXR Knee - right 3 Viewson [id number] [address] XRay Report Signed Patient: DC RASMUSSEN MR#: [id number] : 1935 Acct:[id number] Age/Sex: 89 / M ADM Date: 05/30/24 Loc: RAD Attending Dr: NOLAN BAUTISTA Ordering Physician: NOLAN BAUTISTA Date of Service: 05/30/24 Procedure(s): XR knee RT 3V Accession Number(s): [id number] cc: NOLAN BAUTISTA [place] [address] Patient Name: DC RASMUSSEN MRN: [facility]:[id number] date: 1935 Sex: M Assigned Patient Location: [facility] Current Patient Location: [facility] Accession/Order Number: [id number] Exam Date: 05/30/2024 13:19 Report Date: 05/30/2024 13:20 At the request of: NOLAN BAUTISTA Procedure: XR knee RT 3V 3 views right knee plain film COMPARISON: None HISTORY: Chronic right knee pain. No injury ACUTE FINDINGS: No acute findings DEGENERATIVE CHANGE: Adequate joint spaces. Marginal spurring. Tiny intra-articular body. SOFT TISSUE FINDINGS: Atherosclerosis JOINT EFFUSION: None POSTOP CHANGES: None BONE MINERALIZATION: Adequate XR/XR knee RT 3V IMPRESSION: Mild degeneration Impression dictated by: Kyrie Drummond M.D.05/30/2024 1:20 PM Dictation Location: [place] [address] Electronically authenticated by: [id number] Y Date: 05/30/2024 13:20 Dictated By: Kyrie Drummond D.O. Signed By: 05/30/24 1322 DD/ 1320 TD/TT: Loader Unloader:FLOYDHRadiology, Radiologist, - 05/30/[address] [address] XRay Report Signed Patient: DC RASMUSSEN MR#: [id number] : 1935 Acct:[id number] Age/Sex: 89 / M ADM Date: 05/30/24 Loc: RAD Attending Dr: NOLAN BAUTISTA Ordering Physician: NOLAN BAUTISTA Date of Service: 05/30/24 Procedure(s): XR knee RT 3V Accession Number(s): [id number] cc: NOLAN BAUTISTA [place] [address] Patient Name: DC RASMUSSEN MRN: [id number] date: 1935 Sex: M Assigned Patient Location: RAD Current Patient Location: RAD Accession/Order Number: [id number] Exam Date: 05/30/2024 13:19 Report Date: 05/30/2024 13:20 At the request of: NOLAN BAUTISTA Procedure: XR knee RT 3V 3 views right knee plain film COMPARISON: None HISTORY: Chronic right knee pain. No injury ACUTE FINDINGS: No acute findings DEGENERATIVE CHANGE: Adequate joint spaces. Marginal spurring. Tiny intra-articular body. SOFT TISSUE FINDINGS: Atherosclerosis JOINT EFFUSION: None POSTOP CHANGES: None BONE MINERALIZATION: Adequate XR/XR knee RT 3V IMPRESSION: Mild degeneration Impression dictated by: Kyrie Drummond M.D.05/30/2024 1:20 PM Dictation Location: [place] [address] Electronically authenticated by: [id number] Y Date: 05/30/2024 13:20 Dictated By: Kyrie Drummond D.O. Signed By: 05/30/24 1322 DD/ 1320 TD/TT: Loader Unloader: [facility] HealthcareRadiology Study observation (narrative)NOMS HealthcareXR Knee - right 3 ViewsOrdered By: Radiologist Radiology on [id number] Work Phone: Office Visiton [id number] Dc Rasmussen 1935 M Date Provider Department Center 05/23/2024 SNAJAY BAÑUELOS [facility] Hos Family History Problem Relation Age of Onset Heart attack Mother Cancer Father Cancer Sister Family Status - Relation Status Age at Mother Father Sister Level of Service:49695 [place] OFFICE/OUTPATIENT ESTABLISHED LOW [facility]No Panel InformationOrdered By: Janeen Avilez on [id number] HealthcareAmbulatory Visit Summaryon [id number] Visit SummaryAmbulatory Visit Summary DC RASMUSSEN :1935 Visit Date:04/25/2024 Ambulatory Visit Instructions Your Diagnosis BPH with urinary obstruction Urinary frequency Former smoker Post-void dribbling Other obstructive and reflux uropathy Your Care Team Attending Physician - RUTH Porter APRN, Briana Rene Primary Care Physician - NOLAN BAUTISTA MD [...] 40 mg Tab) ipratropium nasal (Atrovent 0.03% [place]) levalbuterol (levalbuterol 1.25 mg/0.5 mL Concentrate) metoprolol (metoprolol 100 mg ER Tab) montelukast (Singulair 10 mg Tab) multivitamin (Vitamin B Complex oral capsule) nitroglycerin (nitroglycerin 0.4 mg SubL [place]) pantoprazole (Protonix 40 mg Tab-DR) potassium chloride (Potassium Chloride (Wyg-Klkw-Fdb 10)) tamsulosin (Flomax 0.4 mg Cap) zolpidem (Ambien 10 mg Tab) Procedures Performed Cystoscope (03/24/2022), Open removal of foreign body from left atrium (09/07/2019), Upper GI (gastrointestinal) endoscopy (02/01/2019), Laparoscopic cholecystectomy (12/2018), Colonoscopy (05/06/2017), Hernia repair (2002), Angioplasty (1995), Vasectomy (1968), Tonsillectomy (1954), Cataract, Anusha cystectomy, Excision of parapharyngeal mass, Tonsillectomy. Discharge Vitals Heart Rate (Peripheral) 66 Respiratory Rate 18 Blood Pressure 151/88 Height 188 cm Height 74 in Weight 94 kg Weight 207.234 lb BMI 26.6 Medications What How Much When Instructions Unchanged acetaminophen (Tylenol Extra Strength 500 mg oral tablet) By Mouth Every 6 hours Contact prescribing physician if questions or concerns Unchanged ascorbic acid (Vitamin C 1000 mg oral tablet) By Mouth Every day Contact prescribing physician if questions or concerns Unchanged atorvastatin (atorvastatin 20 mg Tab) By Mouth Every day Contact prescribing physician ifquestions or concerns Unchanged cetirizine (cetirizine 10 mg Tab) By Mouth Every day Contact prescribing physician if questions or concerns Unchanged diazepam (diazepam 5 mg Tab) By Mouth Every 8 hours Contact prescribing physician if questions or concerns Unchanged diphenhydrAMINE (Benadryl 25 mg Cap) By Mouth Every 6 hours Contact prescribing physicianif questions or concerns Unchanged furosemide (Lasix 40 mg Tab) By Mouth Every day Contact prescribing physician if questions or concerns Unchanged ipratropium nasal (Atrovent 0.03% [place]) 2 Sprays Nasal Inhalation 3 times a day Contact prescribing physician if questions or concerns Unchanged levalbuterol (levalbuterol 1.25 mg/ 0.5 mL Concentrate) Nebulized inhalation (aerosol) 3 times a day Contact prescribing physician if questions or concerns Unchanged metoprolol (metoprolol 100 mg ER Tab) By Mouth Every day Contact prescribing physician ifquestions or concerns Unchanged montelukast (Singulair 10 mg Tab) By Mouth Every day Contact prescribing physician if questions or concerns Unchanged multivitamin (Vitamin B Complex oral capsule) By Mouth Every day Contact prescribing physician if questions or concerns Unchanged nitroglycerin (nitroglycerin 0.4 mg SubL [place]) Sublingual Every 5 minutes Contact prescribing physician if questions or concerns Unchanged pantoprazole (Protonix 40 mg Tab-DR) By Mouth Every day Contact prescribing physician if questions or concerns Unchanged potassium chloride (Potassium Chloride (Xlh-Fpua-Dec 10)) By Mouth 2 times a day Contact prescribing physician if questions or concerns Unchanged tamsulosin (Flomax 0.4 mg Cap) By Mouth Every day Contact prescribing physician if questions or concerns Unchanged zolpidem (Ambien 10 mg Tab) 1 Tablets By Mouth Once a day (at bedtime) as needed for for sleep Contact prescribing physician if questions or concerns Allergies Ultram (Paranoid disorder, Hallucinations, Paranoia) acetaminophen (Unknown) albuterol (Migraine) codeine-guaifenesin (Rash) levoFLOXacin (Rash) oxyCODONE (Hallucinations) thiopental (Unknown) traMADol (Hallucinations) Problems Ongoing - Any problem that you are currently receiving treatment for. A-fib Actinic keratoses Alcohol dependency Anemia Angio-edema Arrhythmia Arthritis Asthma Atherosclerosis of [place] coronary artery of [place] heart without angina pectoris Atrial fibrillation Basal cell carcinoma of skin BPH with urinary obstruction Carcinoma of prostate Chronic cholecystitis Chronic cough Chronic obstructive pulmonary disease Congestive heart failure Coronary artery disease COVID-19 Debility Difficulty walking Diverticulosis Edema due to malnutrition Edema of lower extremity Esophagea (more content not included)...[facility] [phone]-up [id number] Dc Rasmussen 1935 M Date Provider Department Center 01/06/2024 367-SANJAY HECTOR [facility] Hos No family history on file Level of Service:53440 LA OFFICE/OUTPATIENT ESTABLISHED LOW MDM [address] [facility] HospitalOffice Visiton [id number]-up visit [id number] Dc Rasmussen 1935 M Date Provider Department Center 12/01/2023 [id number]-LGTYTUALEX TAYLOR [facility] Hos No family history on file Level of Service:77429 LA OFFICE/OUTPATIENT ESTABLISHED MOD MDM 30 MIN Reason for Visit and Comments: Hospital Follow-up [832] - Presented to [facility] ED twice the past few weeks for chest pain. Coronary Artery Disease [187] - Denies SOB Atrial Fibrillation [80] - Denies palpitations and syncope Congestive Heart Failure [127] - Denies SOB and LE edema Chest Pain [120600] - Had stress test last week.He describes it as a tightness accompanied with pain . Hasn't had any the past few days.[facility] NIMESH PERF SPECT REST STRon [id number] [address] Nuclear Medicine Report Signed Patient: DC RASMUSSEN MR#: [id number] : 1935 Acct:[id number] Age/Sex: 88 / M ADM Date: 11/27/23 Loc: GARY Attending Dr: SANJAY HECTOR Ordering Physician: SANJAY HECTOR Date of Service: 11/27/23 Procedure(s): NM nimesh perf SPECT rest str Accession Number(s): [id number] cc: NOLAN BAUTISTA ; SANJAY HECTOR Patient Name: DC RASMUSSEN MR#: [id number] : 1935 Exam Date: 11/27/2023 Ordering Doctor: DR SANJAY HECTOR M.D. RADIOLOGY REPORT PROCEDURE: NM NIMESH PERF SPECT REST STR COMPARISON: None. INDICATIONS: CHEST PAIN TECHNIQUE: Exam Description: Rest/Stress one day protocol gated SPECT Rest Imagin.0 mCi Tc-99m Cardiolite IV on 11/27/2023 Stress Imaging 29.6 mCi Tc-99m Cardiolite IV on 11/27/2023 Exercise Protocol: 0.4 mg Lexiscan given IV Heart Rate (bpm): Rest: 59 Max: 80 PMHR: 59 Blood Pressure: Rest: 148/84 Max: 148/84 Symptoms: Rest and peak stress ECG findings were pending and the exercise portion of the study was pending per attending physician Dr. KIRK . For more details please see separate cardiac stress test report. FINDINGS: QUALITY OF STUDY: Good. PERFUSION DEFECT: LOCATION: Basal inferior. Basal inferolateral. Mid-inferior. [place]. SIZE: Medium (3-4 segments). SEVERITY: Moderate. TYPE: Persistent. WALL MOTION: Normal. LV SIZE: Normal. 88 mL. TID / TCD: None; 0.9 LVEF: Normal. Calculated EF 70%. SUMMARY: Myocardial perfusion imaging study has ABNORMAL findings. CONCLUSION: 1. Moderate fixed defect inferior wall, RCA distribution 2. No reversible ischemia 3. Pending exercise test result Dictated by: Jeffrey Jung MD on 11/27/2023 at 11:57 Approved by: Jeffrey Jung MD on 11/27/2023 at 11:59 Dictated By: Jeffrey Jung M.D. Signed By: 11/27/23 1200 DD/ 1159 TD/TT: Loader Unloader:TBHRadiology, RadiologistMD - 11/27/2023 [place] [address] Nuclear Medicine Report Signed Patient: DC RASMUSSEN MR#: [id number] : 1935 Acct:[id number] Age/Sex: 88 / M ADM Date: 11/27/23 Loc: NM Attending Dr: SANJAY HECTOR Ordering Physician: SANJAY HECTOR Date of Service: 11/27/23 Procedure(s): NM nimesh perf SPECT rest str Accession Number(s): [id number] cc: NOLAN BAUTISTA ; SANJAY HECTOR Patient Name: DC RASMUSSEN MR#: [id number] : 1935 Exam Date: 11/27/2023 Ordering Doctor: DR SANJAY HECTOR M.D. RADIOLOGY REPORT PROCEDURE: NM NIMESH PERF SPECT REST STR COMPARISON: None. INDICATIONS: CHEST PAIN TECHNIQUE: Exam Description: Rest/Stress one day protocol gated SPECT Rest Imagin.0 mCi Tc-99m Cardiolite IV on 11/27/2023 Stress Imaging 29.6 mCi Tc-99m Cardiolite IV on 11/27/2023 Exercise Protocol: 0.4 mg Lexiscan given IV Heart Rate (bpm): Rest: 59 Max: 80 PMHR: 59 Blood Pressure: Rest: 148/84 Max: 148/84 Symptoms: Rest and peak stress ECG findings were pending and the exercise portion of the study was pending per attending physician Dr. KIRK . For more details please see separate cardiac stress test report. FINDINGS: QUALITY OF STUDY: Good. PERFUSION DEFECT: LOCATION: Basal inferior. Basal inferolateral. Mid-inferior. [place]. SIZE: Medium (3-4 segments). SEVERITY: Moderate. TYPE: Persistent. WALL MOTION: Normal. LV SIZE: Normal. 88 mL. TID / TCD: None; 0.9 LVEF: Normal. Calculated EF 70%. SUMMARY: Myocardial perfusion imaging study has ABNORMAL findings. CONCLUSION: 1. Moderate fixed defect inferior wall, RCA distribution 2. No reversible ischemia 3. Pending exercise test result Dictated by: Jeffrey Jung MD on 11/27/2023 at 11:57 Approved by: Jeffrey Jung MD on 11/27/2023 at 11:59 Dictated By: Jeffrey Jung M.D. Signed By: 11/27/23 1200 DD/ 1159 TD/TT: Loader Unloader: JOSH Wilson HealthRadiology Study observation (narrative)[facility] NIMESH PERF SPECT REST STROrdered By: Radiologist Radiology on [phone] Work Phone: ca ECHO DOPPLER COMPLETEon [phone] [address] Cardiology Report Signed Patient: DC RASMUSSEN MR#: [id number] : 1935 Acct:[id number] Age/Sex: 88 / M ADM Date: 08/03/23 Loc: CARD Attending Dr: SANJAY HECTOR Ordering Physician: SANJAY HECTOR Date of Service: 08/03/23 Procedure(s): CA echo doppler complete Accession Number(s): [id number] cc: NOLAN BAUTISTA ; SANJAY HECTOR Patient Name: DC RASMUSSEN MR#: [id number] : 1935 Exam Date: 08/03/2023 Ordering Doctor: DR SANJAY HECTOR M.D. ECHOCARDIOGRAM REPORT PROCEDURE: CA ECHO DOPPLER COMPLETE INDICATIONS: Aortic aneurysm COMPARISON: None. DESCRIPTION: COMPLETE ECHOCARDIOGRAM Real-time transthoracic echocardiography with 2D, M-mode, spectral and color flow Doppler performed. QUALITY: Technical quality was good. LEFT VENTRICLE: Normal chamber size. Mild concentric hypertrophy. Global left ventricular systolic function is normal. LV EF: Estimated left ventricular ejection fraction is 60-65% DIASTOLIC: Normal diastolic function. ATRIAL SEPTUM: LEFT ATRIUM: Normal chamber size. RIGHT ATRIUM: Normal chamber size. RIGHT VENTRICLE: Normal chamber size. Normal right ventricular systolic function. TRICUSPID VALVE: Normal mobility and thickness. No stenosis with trivial regurgitation. No evidence of pulmonary hypertension. RVSP 31 mmHg MITRAL VALVE: Normal mobility and thickness. No evidence of mitral valve stenosis. There is no mitral annular calcification. Mild mitral regurgitation. AORTIC VALVE: Normal trileaflet appearance. Thickened aortic valve. Normal leaflet mobility. No evidence of aortic valve stenosis. No aortic regurgitation. AORTIC ROOT: Mildly dilated aortic root measuring 3.8 cm. 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 The aortic arch measures 2.7 cm. PULMONIC VALVE: Normal thickness and mobility. No stenosis. No regurgitation. PERICARDIUM: No evidence of pericardial effusion. IVC: Collapses with inspirations. Normal size. PLEURA: CONCLUSION: 1. Mild concentric left ventricular hypertrophy with normal systolic function. LVEF is estimated at 60 to 65%. 2. Normal right ventricular size and systolic function. 3. No significant valvular dysfunction. 4. Normal diastolic function. 5. Normal right-sided pressures. 6. 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 Adult Echocardiography Procedure Report Left Ventricle LVEDD (3.7 - 5.6 cm): 4.69 cm LVESD (2.2 - 4.0 cm): 3.34 cm LVIVS thickness (0.6 - 1.2 cm): 1.06 cm LVPW thickness (0.5 - 1.0 cm): 1.37 cm e': 0.09 m/s E - e': 12.70 LVOT Max Gradient: 1.61 mm[Hg] LVOT Area (cm2): 0.63 m/s Peak Velocity (LVOT): 0.63 m/s Mean Velocity (LVOT): 0.44 m/s LVOT Diameter 2.21 cm Left Ventricular Ejection Fraction: 60-65 % Left Atrium LA Volume Index (2D A2C): 30.17 ml/m2 Left Atrium Systolic Dimension: 3.99 cm Mitral Valve MV E to A Ratio: 1.99 Mitral Valve A-Wave Peak Velocity: 0.55 m/s Mitral Valve E-Wave Peak Velocity: 1.09 m/s Right Ventricle RV Internal Diastolic Dimension: 3.92 cm Aorta AO Root Diam: 3.81 cm Ascending Ao Diam: 4.02 cm Aortic Valve AoV Area (Peak Saad): 2.66 cm2, 2.66 cm2 AoV Area (VTI): 3.47 cm2, 3.47 cm2 Peak Velocity(Antegrade Flow): 0.91 m/s Peak Gradient(Antegrade Flow): 3.34 mm[Hg] Mean Velocity(Antegrade Flow): 0.59 m/s Mean Gradient(Antegrade Flow): 1.60 mm[Hg] Velocity Time Integral: 17.16 cm Tricuspid Valve Peak Velocity (Regurgitant Flow): 2.10 m/s, 2.23 m/s, 2.63 m/s Pulmonic Valve Mean Gradient: 1.45 mm[Hg], 1.77 mm[Hg] Mean Velocity: 0.55 m/s, 0.62 m/s Peak Velocity: 0.86 m/s Peak Gradient: 2.84 mm[Hg], 3.06 mm[Hg] Right Atrium Right Atrium Systolic Pressure: 71.50 ml, 71.50 ml Dictated by: Sanjay Hector M.D. on 08/03/2023 (more content not included)... TBHRadiology, Radiologist, MD - 08/03/2023 [place] [address] Cardiology Report Signed Patient: DC RASMUSSEN MR#: [id number] : 1935 Acct:[id number] Age/Sex: 88 / M ADM Date: 08/03/23 Loc: CARD Attending Dr: SANJAY HECTOR Ordering Physician: SANJAY HECTOR Date of Service: 08/03/23 Procedure(s): CA echo doppler complete Accession Number(s): [id number] cc: NOLAN BAUTISTA ; SANJAY HECTOR Patient Name: DC RASMUSSEN MR#: [id number] : 1935 Exam Date: 08/03/2023 Ordering Doctor: DR SANJAY HECTOR M.D. ECHOCARDIOGRAM REPORT PROCEDURE: CA ECHO DOPPLER COMPLETE INDICATIONS: Aortic aneurysm COMPARISON: None. DESCRIPTION: COMPLETE ECHOCARDIOGRAM Real-time transthoracic echocardiography with 2D, M-mode, spectral and color flow Doppler performed. QUALITY: Technical quality was good. LEFT VENTRICLE: Normal chamber size. Mild concentric hypertrophy. Global left ventricular systolic function is normal. LV EF: Estimated left ventricular ejection fraction is 60-65% DIASTOLIC: Normal diastolic function. ATRIAL SEPTUM: LEFT ATRIUM: Normal chamber size. RIGHT ATRIUM: Normal chamber size. RIGHT VENTRICLE: Normal chamber size. Normal right ventricular systolic function. TRICUSPID VALVE: Normal mobility and thickness. No stenosis with trivial regurgitation. No evidence of pulmonary hypertension. RVSP 31 mmHg MITRAL VALVE: Normal mobility and thickness. No evidence of mitral valve stenosis. There is no mitral annular calcification. Mild mitral regurgitation. AORTIC VALVE: Normal trileaflet appearance. Thickened aortic valve. Normal leaflet mobility. No evidence of aortic valve stenosis. No aortic regurgitation. AORTIC ROOT: Mildly dilated aortic root measuring 3.8 cm. 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 The aortic arch measures 2.7 cm. PULMONIC VALVE: Normal thickness and mobility. No stenosis. No regurgitation. PERICARDIUM: No evidence of pericardial effusion. IVC: Collapses with inspirations. Normal size. PLEURA: CONCLUSION: 1. Mild concentric left ventricular hypertrophy with normal systolic function. LVEF is estimated at 60 to 65%. 2. Normal right ventricular size and systolic function. 3. No significant valvular dysfunction. 4. Normal diastolic function. 5. Normal right-sided pressures. 6. 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 Adult Echocardiography Procedure Report Left Ventricle LVEDD (3.7 - 5.6 cm): 4.69 cm LVESD (2.2 - 4.0 cm): 3.34 cm LVIVS thickness (0.6 - 1.2 cm): 1.06 cm LVPW thickness (0.5 - 1.0 cm): 1.37 cm e': 0.09 m/s E - e': 12.70 LVOT Max Gradient: 1.61 mm[Hg] LVOT Area (cm2): 0.63 m/s Peak Velocity (LVOT): 0.63 m/s Mean Velocity (LVOT): 0.44 m/s LVOT Diameter 2.21 cm Left Ventricular Ejection Fraction: 60-65 % Left Atrium LA Volume Index (2D A2C): 30.17 ml/m2 Left Atrium Systolic Dimension: 3.99 cm Mitral Valve MV E to A Ratio: 1.99 Mitral Valve A-Wave Peak Velocity: 0.55 m/s Mitral Valve E-Wave Peak Velocity: 1.09 m/s Right Ventricle RV Internal Diastolic Dimension: 3.92 cm Aorta AO Root Diam: 3.81 cm Ascending Ao Diam: 4.02 cm Aortic Valve AoV Area (Peak Saad): 2.66 cm2, 2.66 cm2 AoV Area (VTI): 3.47 cm2, 3.47 cm2 Peak Velocity(Antegrade Flow): 0.91 m/s Peak Gradient(Antegrade Flow): 3.34 mm[Hg] Mean Velocity(Antegrade Flow): 0.59 m/s Mean Gradient(Antegrade Flow): 1.60 mm[Hg] Velocity Time Integral: 17.16 cm Tricuspid Valve Peak Velocity (Regurgitant Flow): 2.10 m/s, 2.23 m/s, 2.63 m/s Pulmonic Valve Mean Gradient: 1.45 mm[Hg], 1.77 mm[Hg] Mean Velocity: 0.55 m/s, 0.62 m/s Peak Velocity: 0.86 m/s Peak Gradient: 2.84 mm[Hg], 3.06 mm[Hg] Right Atrium Right Atrium Systolic Pressure: 71.50 ml, 71.50 ml Dictated by: Sanjay Hector M.D. on 08/03/2023 at 18:30 Approved by: Sanjay Hector M.D. on 08/03/2023 at 18:33 Dictated By: SANJAY HECTOR Signed By: 08/03/231833 DD/ 32 TD/TT: Loader Unloader: JOSH HealthcareRadiology Study observation (narrative)[facility]-SullivanCA ECHO DOPPLER COMPLETEOrdered By: Radiologist Radiology on [phone] [employer] Work Phone: Office Visiton [phone]-up [id number] Dc Rasmussen 1935 M Date Provider Department Center 07/15/2023 Xi-SANJAY HECTOR [facility] No family history on file Level of Service:80221 LA OFFICE/OUTPATIENT ESTABLISHED MOD MDM 30 [facility]ECH[facility]/2D COMPLETEon 06-25-2022 ECHOCARDIO M/2D COMPLETEPatient Name Site Name DC RASMUSSEN [facility] Account No Medical Record Number Age Sex Date Time [id number] [facility]:[id number] 87 M 06/25/2022 08:09 At the Request [...] by: Sanjay Hector M.D. on 06/25/2022 at 18:06[facility] HospitalCovid-19 PCR (CVDTBH)on 43-80-6975WEAP-CoV-2 (COVID-19) RNA KAY+probe Ql (Unsp spec)DetectedCritically abnormalNOT DETECTEDThe [facility]inte HospitalComment on above:Result Comment: This test is not yet approved or cleared by the [place] FDA. When there are no FDA-approved or cleared tests available, and other criteria are met, FDA can make tests available under an emergency access mechanism called an Emergency Use Authorization (EUA). The EUA for this test is supported by the [place] of Health and Human Service's (HHS's) declaration [...] which the test may no longer be used).Performed By: #### CVDTBH #### [facility] [address], [place] [address] Dr. Venkat ScottComprehensive Metabolic Panelon 75-43-5702Llzhbon [Mass/Vol]4.5 g/dLNormal3.6-5.1[facility] SpecialistComment on above:Performed By: #### CMP, LIPD, TSH reflex FT4 #### [facility] [address], [place] [id number]/Globulin [Mass ratio]2.1 {ratio}Normal1.0-2.5[facility] SpecialistComment on above:Performed By: #### CMP, LIPD, TSH reflex FT4 #### [facility] [address], [place] [id number] [Catalytic activity/Vol]328 U/KOgjs64-129Nqgsjddj [place] [facility] SpecialistComment on above:Performed By: #### CMP, LIPD, TSH reflex FT4 #### [facility] [address], [place] [id number] [Catalytic activity/Vol]104 U/LHigh9-46[facility] SpecialistComment on above:Result Comment: 01/16/2021 Female reference range changed.Performed By: #### CMP, LIPD, TSH reflex FT4 #### [facility] [address], [place] [id number] gap [Moles/Vol]22 mmol/NRsuj60-42IolgklvhTrinity Health System SpecialistComment on above:Result Comment: Effective 02/21/2019 reference range changed.Performed By: #### CMP, LIPD, TSH reflex FT4 #### [facility] [address], [place] [id number] [Catalytic activity/Vol]86 U/XDtcy83-46KsptvlhcOhiohealth Berger Hospital SpecialistComment on above:Result Comment: Specimen is hemolyzed. Results may be affected.Performed By: #### CMP, LIPD, TSH reflex FT4 #### [facility] [address], [place] [id number] [Mass/Vol]0.46 mg/dLNormal0.30-1.20[facility] SpecialistComment on above:Performed By: #### CMP, LIPD, TSH reflex FT4 #### [facility] [address], [place] [id number]/CREA17 RatioNormal6-22[facility] Specialist Comment on above:Performed By: #### CMP, LIPD, TSH reflex FT4 #### [facility] [address], [place] [id number] [Mass/Vol]9.5 mg/dLNormal8.6-10.2[facility] SpecialistComment on above:Performed By: #### CMP, LIPD, TSH reflex FT4 #### [facility] [address], [place] [id number] [Moles/Vol]106 mmol/OFttvve82-613Irxogdjm [facility] SpecialistComment on above:Performed By: #### CMP, LIPD, TSH reflex FT4 #### [facility] [address], [place] [id number] [Moles/Vol]20 mmol/PIyogvl57-58Ywuqewrp [place] [facility] SpecialistComment on above:Performed By: #### CMP, LIPD, TSH reflex FT4 #### [facility] [address], [place] [id number] [Mass/Vol]1.0 mg/dLNormal0.7-1.4Nortcopper springs hospitaln [facility] SpecialistComment on above:Performed By: #### CMP, LIPD, TSH reflex FT4 #### [facility] [address], [place] [id number] mL/min/1.94u6Yfcinf>60Nortcopper springs hospitaln [facility] SpecialistComment on above:Performed By: #### CMP, LIPD, TSH reflex FT4 #### [facility] [address], [place] [id number] mL/min/1.14z4Kqcvwc>60NortUC Health SpecialistComment on above:Performed By: #### CMP, LIPD, TSH reflex FT4 #### [facility] [address], [place] [id number] (S) [Mass/Vol]2.1 g/dLNormal1.9-3.7Nortcopper springs hospitaln [facility] SpecialistComment on above:Performed By: #### CMP, LIPD, TSH reflex FT4 #### [facility] [address], [place] [id number] [Mass/Vol]92 mg/tZCijhwn07-77Dpaeulwo [place] [facility] SpecialistComment on above:Result Comment: For FASTING Glucose --- ADA reference ranges: Normal 65-99 mg/dl Prediabetes 100-125 Diabetes >/= 126Performed By: #### CMP, LIPD, TSH reflex FT4 #### [facility] [address], [place] [id number] [Moles/Vol]5.0 mmol/LNormal3.5-5.5NoKettering Health MiamisburgComment on above:Result Comment: Specimen is hemolyzed. Results may be affected.Performed By: #### CMP, LIPD, TSH reflex FT4 #### [facility] [address], [place] [id number] [Mass/Vol]6.6 g/dLNormal6.1-8.1NorthPomerene HospitalComtrinity health [facility] on above:Performed By: #### CMP, LIPD, TSH reflex FT4 #### [facility] [address], [place] [id number] [Moles/Vol]142 mmol/MQlrigo726-897NpcfytqqKettering Health MiamisburgComtrinity health oak[facility] hospital on above:Performed By: #### CMP, LIPD, TSH reflex FT4 #### [facility] [address], [place] [id number] nitrogen [Mass/Vol]17 mg/dLNormal7-25NoKettering Health MiamisburgComtrinity health oakland hospital on above:Performed By: #### CMP, LIPD, TSH reflex FT4 #### [facility] [address], [place] [id number] Panelon 53-69-0458Grunivblojp [Mass/Vol]164 mg/dLNormal 125-200NoKettering Health MiamisburgComtrinity health oakland hospital on above:Result Comment: Low risk < 200mg/dL Borderline risk 201-239 mg/dl High risk > or equal to 240Performed By: #### CMP, LIPD, TSH reflex FT4 #### [facility] [address], [place] [id number] in HDL [Mass/Vol]49 mg/dLNormal>40NoKettering Health MiamisburgComment on above:Result Comment: High Cardiovascular Risk HDL <40 mg/dL Low Cardiovascular Risk HDL > or equal to 60 mg/dlPerformed By: #### CMP, LIPD, TSH reflex FT4 #### [facility] [address], [place] [id number] in LDL [Mass/Vol]95 mg/dLNormalNoecu healthn [facility] SpecialistComment on above:Result Comment: LDL ATP III CLASSIFICATION LDL less than 100 mg/dl Optimal LDL 100-129 mg/dl Near or above optimal LDL 130-159 Borderline high LDL 160-189 High LDL greater than 189 mg/dl Very HighPerformed By: #### CMP, LIPD, TSH reflex FT4 #### [facility] [address], [place] [id number] in VLDL [Mass/Vol]20 mg/dLNormalNoTrinity Health System SpecialistComment on above:Performed By: #### CMP, LIPD, TSH reflex FT4 #### [facility] [address], [place] [id number].total/Cholesterol in HDL [Mass ratio]3 {ratio} NormalNorthern [facility] SpecialistComment on above:Performed By: #### CMP, LIPD, TSH reflex FT4 #### [facility] [address], [place] [id number] [Mass/Vol]99 mg/lGDtxwhh90-928Zxlmmqaz [facility] SpecialistComment on above:Result Comment: TRIG ATPIII CLASSIFICATIONS TRIG less than 150 mg/dl Normal TRIG 150-199 mg/dl Borderline High TRIG 200-500 mg/dl High TRIG greather than 500 mg/dl Very HighPerformed By: #### CMP, LIPD, TSH reflex FT4 #### [facility] [address], [place] [id number] w/ Reflex to Free T4on 53-96-2474OGV0.400 uIU/mLNormal 0.400-4.500Northern [facility] SpecialistComment on above:Performed By: #### CMP, LIPD, TSH reflex FT4 #### [facility] [address], [place] [id number] AND LATERALon 31-53-7632TNCGN AND [facility] Department of Radiology [address] [place] [address] Patient Name: DC RASMUSSEN : 1935 Sex: M Age: Race: White Pt. Location: Patient Status: O Ordered Date: 09/26/2019 12:25:00 PM Completed Date: 09/26/2019 12:56 PM Requesting Provider: JAUN MAYFIELD Attending Provider: JAUN MAYFIELD Report Copy To: NOLAN BAUTISTA Signs & Symptoms: J44.9 Chronic obstructive pulmonary disease, unspecified I10 History: [place] Comments: , , , Ordering Provider - JAUN MAYFIELD MD , Exam: CHEST AND LATERAL CHEST AND LATERAL 09/26/2019 12:56 PM CLINICAL [...] effusions. Electronically signed: Zain Stanton. Transcribed by: [email or web address], User Resident: Electronically Signed by: ZAIN STANTON @ 09/26/2019 03:09 [facility] CampusComment on above:Order Comment: , , , Ordering Provider - JAUN MAYFIELD MD , CNCOon 10-06-2016 CNCOLetHurley Trinh MD [id number] [facility] [address]Kvoq: [phone] Wugzec Barry, MD[address] [place] [id number] Oglesby,Thank you for referring Mr. Rasmussen for evaluation. He was a great delight toseehere. Below I have transcribed the clinic note [...] Hereports that he was overall in very goodhealth for his age until aboutNovember of last year. He developed pneumonia complicated by some ment alstatus changes. 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 The rash has occurred approximately 5 times sincedischarge from the hospital in December 2015. In additionto the biopsy hereports he was usually given a corticosteroid injection which cleared therash for several weeks but the rash would always recur, usually within 2weeks. Of note, he has been free of rashes since approximately July of thisyear.About 2 months ago he experienced painless swelling of theneck, eyelids, andlips. The swelling was not associated with urticaria, rashes, itching. Noinvolvement of the oral mucosa, no shortness of breath, difficultyswallowing, wheezing, nausea, vomiting wasnoted. No swelling of the hands,lips, or abdomen was present to his knowledge.This was once again treated with steroids and and symptoms gradually resolvedover the course of 3-4 weeks.He is now back at baseline and has not experienced a rash in the last 8weeks. The swelling has essentially resolved. He does have some swellingunder the eyes which is about baseline for him.Approximately 10 days agohe was switched to a new anticonvulsant, Keppra,and [...] cough, dyspnea, or wheezing.CV: Denies any chest painwith exertion or at rest, palpitations, syncope, oredema.GI: Denies any nausea, vomiting, abdominalpain, heartburn, changes in bowelhabitMUSCULOSKELETAL: Denies any joint swelling, joint pain, or loss of range ofmotion., Denies back pain.NEURO: Denies any headaches, tremors, dizziness, vertigo, memory loss,confusion., Denies weakness, numbness or tingling.All other review of systems negative except for those listed above.?EXAM:Blood pressure 184/91, pulse 75, SpO2 98 %.APPEARANCE: Alert, in noacute distressEYES: sclera non-icteric, conjunctiva non-injectedEARS: External ears normal. Canals clear. tympanic membranes normal.NOSE/SINUS: Nares normal. Mucosa normal. No drainage or sinus tenderness.OROPHARYNX: Lips, tongue normal. Oropharynx clear.THROAT: no erythemaNECK: neck supple, no ramiro opathyHEART: Regular rate, regular rhythm, S1 normal and S2 normalLUNG: clear to auscultationLYMPH NODES: No cervical lymphadenopathyABDOMEN: soft, nontender, nondistendedEXTREMITIES: No clubbing, Nocyanosis and No edemaNEURO: Awake, alert and oriented x 3, Normal gait and No involuntary motions.SKIN: Skin color, texture, turgor normal. No rashes or lesions.?LAB ANDDIAGNOSTIC STUDIES: No indication for allergy skin testing withtoday's visit. 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 The symptoms do not sound consistent with a moresevere drug reaction such as DRESS syndrome, or Sauceda-Marvin syndrome.Although eosinophilic processes such as eosinophilic pneumonia orChurg- Preston vasculitis are considered, I think these are [...] clinical notes from his primary physician, and skinb iopsy results from the paralegal internship.I agree with the current plan to reintroduce medications every4-6 weeks astolerated and as clinically appropriateI would like to recheck a CBC with differential to see where the eosinophilcount is today. We discussed doing when here at the [facility] but thepatient would like to have [...] records. Otherwise, he will follow-up as needed?Jose Whittington MD?This note was partially generated using Yebol voice recognition system, andthere may be some incorrect words, spellings, and punctuation that were notnoted in checking the note before boy ing.???Sincerely,Jose Trinh MD(Signed electronically to expedite processing)[facility] HospitalCNCOLetter Iglesia Rasmussen Trinh MD UXFCVNVpnindl5833 [facility] [address]Nqbb: [phone] Upugpq 2016Nolan Bautista MD[address] [place] [id number] Bautista,Thank you for referring Mr. Rasmussen for evaluation. He was a great delight tosee here. Below I have transcribed the clinic note from our visit last week.Briefly, I am most suspicious that he developed an eosinophilic drug rashfrom either the antibiotics from his inp atient stay, the anticonvulsants, orboth. I anticipate that [...] new findings that youwould like to discuss.Axel Ivory 2016This is a request for consultation by [...] pruritic rash that he describes as looking verysimilarto measles. These rashes were not associated with GI complaints,nausea, vomiting, fevers, joint pain, or known renal dysfunction. No lesionsof the palms, soles of the feet, or oral lesions were reported.He was also diagnosed with a convulsive disorder and was started onantiseizure medicines early in 2016.He was seen by a paralegal internship and underwent a skin biopsy and was told thatthe rash was a drug rash. The rash has occurred approximately 5 times sincedischarge from the hospital in December. In addition to the biopsy hereports he was usually given a corticosteroid injection which cleared therash for several weeks but the rash would always recur, usually within 2weeks. Of note, he has been free of rashes since approximately July of thisyear.About 2 months ago he experienced painless s welling of the neck, eyelids, andlips. The swelling [...] when the drug rash was diagnosed. Thisincludes long-termpreventive medicine such as statins. Currently onlytaking Keppra, Prilosec, furosemide, potassium, Flomax, and baby aspirin.??REVIEW OF SYSTEMS:GENERAL: Denies fever, chills, night sweats, or changesin weight.DERM: Denies any new skin conditions, rashes or changing moles.EYES: Denies recent visualchanges.ENT: Denies hearing loss or tinnitusRESP: Denies any cough, dyspnea, or wheezing.CV: Deniesany chest pain with exertion or at rest, palpitations, syncope, oredema.GI: Denies any nausea, vomiting, abdominal pain, heartburn, changes in bowelhabitMUSCULOSKELETAL: Denies any joint swelling, chari nt pain, or loss of range ofmotion., Denies back pain.NEURO: Denies any headaches, tremors, dizziness, vertigo, memory loss,confusion., Denies weakness, numbness or tingling.All other review of systems negative except for those listed above.?EXAM:Blood pressure 184/91, pulse 75, SpO2 98 %.APPEARANCE: Alert, in no acute distressEYES: sclera non-icteric, conjunctiva non-injectedEARS: External ears normal. Canals clear. tympanic membranes normal.NOSE/SINUS: Nares normal. Mucosa normal. No drainageor sinus tenderness.OROPHARYNX: Lips, tongue normal. Oropharynx clear.THROAT: no erythemaNECK: necksupple, no adenopathyHEART: Regular rate, regular rhythm, S1 [...] in January 2016 and approximately 800in July 2016.?ASSESSMENT/PLANDRUG RASH WITH EOSINOPHILIAPatient is currently asymptomatic, the [...] so I am not suspicious of NSAID-inducedangioedema. Heis currently not on an JAYLIN inhibitor so jaylin-induced angioedema is alsounlikely. No secondary symptoms that make me suspicious for an acquiredangioedema associated with lymphoma.No specific treatment recommendations were made today. The patient signedmedical release is and I would liketo review hospital discharge summary fromDecember 2015, recent clinical notes from his primary physician, and skinbiopsy results from the paralegal internship.I agree with the current plan to reintroduce medications every 4-6 weeks astolerated and as clinically appropriateI would like to recheck a CBC with differential to see where the eosinophilcount is today. We discussed doing when here at the [facility] but thepatient would like to have his primary physician do that. I will ask him toforwardme those results when they become available.If clinically appropriate, we'll do additional testing or recommendations fortesting including workup for Churg-Preston, eosinophilic pneumonia, acquiredangioedema as appropriate. As noted above I think these conditions areunlikely,?I will contact the patient by telephone when I am able to review previousmedical records. Otherwise, he will follow-up as needed?Jose Trinh MDClermont County HospitalCNCox Walnut Lawn [id number] Visit (VANIA) --------DC RASMUSSEN ([id number]) 1935 MDate Time Provider Department09/29/16 1:30 PM [...] so we may arrange an officevisit in 1-2days for further evaluation of this.Jose Trinh MD 10/07/2016 8:23 AM SignedThis is a request for consultation by Nolan Bautista II, MD for the evaluationof edema, rash, eosinophilia. My evaluation, opinion and recommendations willbe communicated to the referring provider via EMR or via USPS.Dc Rasmussen is a pleasant 81 year old year old patient who presents forevaluation of several issuesthat have occurred over the past 12 months. Hereports that he was overall in very good health for his age until aboutNov of last year. He developed pneumonia complicated by some mentalstatus changes. He was admitted to the hospital where he received multipletreatments including antibiotics. Heunderwent an intensive workup for a lungnodule at that time that was thought to be possibly malignant. This has sincebeen ruled out by CT, PET scan.Although he cannot provide significant details of the hospitalization, he doesremember being discharged from the hospital with a rash. Since discharge magui had a very pruritic rash that he describes as looking very similar tomeasles. These rashes were not associated with GI complaints, nausea,vomiting, fevers, joint pain, or known renal dysfunction. No lesions of thepalms, soles of the feet, or oral lesions were reported.He was also diagnosed with a convulsive disorder and was started on antiseizuremedicines early in 2016.He was seen by a paralegal internship and underwent a skin biopsy and was [...] his knowledge.This was once again treated with s teroids and and symptoms gradually resolvedover the course [...] on file.Past Surgical History:No past surgical history onfile.Allergies:Albuterol; Lidocaine; Percocet [Oxycodone- Acetaminophen]; Ultram [Tramadol]Current Outpatient Prescriptions:tamsulosin ER (FLOMAX) 0.4 [...] education: Number of children:Social History Main TopicsFamily His tory:No family history on file.ENVIRONMENTAL HISTORYENVIRONMENTAL HISTORYREVIEW OF SYSTEMS:GENERAL:Denies fever, chills, night sweats, or changes in weight.DERM: Denies any new skin conditions, rashes or changing moles.EYES: Denies recent visual changes.ENT: Denies hearing loss or tinnitusRESP: Denies any cough, dyspnea, or wheezing.CV: Denies any chest pain with exertion or at rest, palpitations, syncope, oredema.GI: Denies any nausea, vomiting, abdominal pain, heartburn, changes in bowelhabitMUSCULOSKELETAL: Denies any joint swelling, joint pain, or loss of range ofmotion., Denies back pain.NEURO: Denies any headaches, tremors, dizziness, vertigo, memory loss,confusion., Denies weakness,numbness or tingling.All other review of systems negative except for those listed above.EXAM:Blood pressure 184/91, pulse 75, SpO2 98 %.APPEARANCE: Alert, in no acute distressEYES: sclera non-icteric, conjunctiva non- injectedEARS: External ears normal. Canals clear. 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 The symptoms do not sound consistent with a moresevere drug reaction such as DRESS syndrome, or Sauceda-Marvin syndrome.Although eosinophilic pro cesses such as eosinophilic pneumonia or Churg-Straussvasculitis are considered, I think these are not likely.The angioedema he reports is resolved. Is currently taking ibuprofen 800 forpain without symptoms so I am not suspicious of NSAID-induced angioedema. Heis currently not on an JAYLIN inhibitor so jaylin- induced angioedema is alsounlikely. No secondary symptoms that make me suspicious for an acquiredangioedema associated with lymphoma.No specific treatment recommendations were made today. The patient signedmedical release is and I would like to review hospital discharge summary fromDecember 2015, recent clinical notes from his primary physician, and skinbiopsy results from the paralegal internship.I agree with the current plan to reintroduce medications every 4-6 weeks astolerated and as clinically appropriateI would like to recheck a CBC with differential to see where the eosinophilcount is today. We discussed doing when here at the [facility] but thepatient would like to have [...] Trinh MDThikeeley note was partially generated using Yebol voice recognition system, andthere may be some incorrect words, spellings, and punctuation that were notnoted in checking the note before saving.?Referring Provider: NOLAN BAUTISTA II [[id number]]Allergies As of Date: 09/29/2016 Noted Allergy ReactionALBUTEROL 09/29/2016 14 - Other: See Comments Comments: migrainesLIDOCAINE 09/29/2016 5 - IntolerancePERCOCET (OXYCODONE-ACETAMINOPH EN)09/29/2016 1 - Mental Status ChangeULTRAM (TRAMADOL) 09/29/2016 1 - Mental Status ChangeDate Reviewed: 09/29/2016Reviewed by: Yaneli Kapadia - Fully AssessedReason for Visit: Consult [173] Cmt: cough x 1 year - pneumonia in 12/2015 - developed rash in hospitalPrimary Visit Diagnosis:Drug rash [L27.0] 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 FUROSEMIDE 40 [...] 2-HERB* Take by mouth. ASCORBIC ACID (VITAMIN C)1,0* Take 1,000 mg by mouth once d* MULTIVITAMIN CAPSULE Take 1 capsule by mouth once * ZOLPIDEM 10MG TABLET Take by mouth at bedtime as *Problem List As Of Date: 09/29/2016(None) Other instructionsfrom your clinician: Please have CBC with differential [...] this. Status:Closed by JOSE TRINH MD on 10/07/16[facility] [id number] ID: [id number]: Jose TrinhService: (none)Author Type: PhysicianType: Progress NotesFiled: 10/07/2016 8:23 [...] cannot provide significant details of the hospitalization, sarahs remember being discharged from the hospital with a rash. Sincedischarge she has had a very pruritic rash that he describesas lookingvery similar to measles. These rashes were not associated with GIcomplaints, nausea, vomiting, fevers, joint pain, or known renaldysfunction. No lesions of the palms, soles of the feet, or oral lesionswere reported.He was also diagnosed with a convulsive disorder and was started onantiseizure medicines early in 2016.He was seen by a paralegal internship and underwent a skin biopsy and was toldthat the rash was a drug rash. The rash has occurred approximately 5times [facility]. In addition tothe biopsy he reports he was usually given a corticosteroid injectionwhich cleared the rash for several weeks but the rash would always recur,usually within 2 weeks. Of note, he has been free of rashes sinceapproximately July of this year.About 2 months ago heexperienced painless swelling of the neck, eyelids,and lips. [...] file.Past Surgical History:No past surgical history on file.Allergies:Albuterol; Lidocaine; Percocet [Oxycodone-Acetaminophen]; Ultram[Tramadol]Current Outpatient Prescriptions:tamsulosin ER (FLOMAX) 0.4 mgcp24 Take 0.4 mg by mouth.furosemide (LASIX) 40 mg tablet Take 40 mg by mouth twice daily.potassiumchloride 20 mEq/50 mL IVPB Inject 20 mEq [...] status: Spouse name: Years of education: Number ofchildren:Social History Main TopicsFamily History:No family history on file.ENVIRONMENTAL HISTORYENV IRONMENTAL HISTORYREVIEW OF SYSTEMS:GENERAL: Denies fever, chills, night [...] pressure 184/91, pulse 75, SpO2 98 %.APPEARANCE: Alert,in no acute distressEYES: sclera non-icteric, conjunctiva non-injectedEARS: [...] had some labs with him today and wasnotablefor an eosinophilic absolute count of 1280 in [...] an acquired angioedema associated with lymphoma.No specific treatmentrecommendations were made today. The patient signedmedical release is and I would like to review hospital discharge summaryfrom December 2015, recent clinical notes from his primary physician, andskin biopsy results from the paralegal internship.I agree with the current plan to reintroduce medications every 4-6 weeksas tolerated and as clinically appropriateI would like to recheck a CBC with differential to see where theeosinophil count is today. We discussed doing when here at the [facility] patient would like to have his primary physician do that.I will ask him to forward me those results when they become available.If clinically appropriate, we'll do additional testing or recommendat ionsfor testing including workup for Churg-Preston, eosinophilic pneumonia,acquired angioedema as appropriate. As noted above I think theseconditions are unlikely,I will contact the patient by telephone when I am able to review previousmedical records. Otherwise, he will follow-up as neededJose Whittington MDThis note was partially generated using Yebol voice recognition system,and there may besome incorrect words, spellings, and punctuation thatwere not noted in checking the note before saving.?Normal [facility] Vital Signs Date TimeVital SignValuePerforming VfrljgjkeGrmqytzc92-12-9351 10:57-0400Body cehjgi625.5 cmDajaycee Bautista MD Work Phone: TriggertrapMid [facility] CenterCovqdhvvel70-39-9863 10:57-0400Body mass index (BMI) [Ratio]24.75 kg/h9QackboNolan Bautista MD Work Phone: [facility] CenterDyqxarrrjk15-00-3195 10:57-0400Body .81 kgNolan Bautista MD Work Phone: [facility] CenterJwfxommmcl39-94-1064 10:57-0400Diastolic blood uaxtaszl90 mm[Hg]Nolan Bautista MD Work Phone: [facility] CenterViuckauzhx77-77-4820 10:57-0400Heart rate67 /min Nolan Bautista MD Work Phone: [facility]-SullivanSbltqeblbv23-48-4024 10:57-0265TqU3% (BldA) [Mass fraction]98 %Nolan Bautista MD Work Phone: [facility] CenterEctuvqxomc24-96-2094 10:57-0400Systolic blood axfmpydq349 mm[Hg]Nolan Bautista MD Work Phone: [facility]-SullivanGfjvtyolhl27-88-0610 10:48-0500Body xnvagh257.5 cmNolan Bautista MD Work Phone: [facility]-SullivanYbnbkeqqqi27-66-0753 10:48-0500Body mass index (BMI) [Ratio]24.87 kg/m8RfxoeuNolan Bautista MD Work Phone: [facility]-SullivanSydofzkkzl80-09-5616 10:48-0500Body nhktar31.27 kgNolan Bautista MD Work Phone: [facility]-SullivanOrlmrsiigv39-00-7136 10:48-0500Diastolic blood nhxghuft25 mm[Hg]Nolan Bautista MD Work Phone: [facility] CenterOgixvxroge51-50-8012 10:48-0500Heart rate66 /min Nolan Bautista MD Work Phone: [facility] CenterAqhlkwpwfx33-81-9934 10:48-5597CaE2% (BldA) [Mass fraction]100 %Nolan Bautista MD Work Phone: [facility] CenterLndkeietqn09-59-1250 10:48-0500Systolic blood ydxqegor423 mm[Hg]Nolan Bautista MD Work Phone: [facility] CenterErixvdhvzv91-91-7053 11:04-0400Body eagfuf299.5 cmNolan Bautista MD Work Phone: [phone] [place], [place] [address]Wqxggrgxyb77-53-0388 11:04-0400Body mass index (BMI) [Ratio]24.62 kg/x3MtjkcoNolan Bautista MD Work Phone: [phone])[address] [place], [place] 4676310-09-2024 11:04-0400Body temperature 97.39 [degF]Nolan Bautista MD Work Phone: [phone] [place], [place] 4676310-09-2024 11:04-0400Body .36 kgNolan Bautista MD Work Phone: [phone] [place], [place] 4676310-09-2024 11:04-0400Diastolic blood ftklwokz53 mm[Hg]Nolan Bautista MD Work Phone: [phone])[address] [place], [place] 4676310-09-2024 11:04-0400Heart rate70 /min Nolan Bautista MD Work Phone: [phone] [place], [place] 4676310-09-2024 11:04-6869MvE3% (BldA) [Mass fraction]100 %Nolan Bautista MD Work Phone: [phone])[address] [place], [place] 4676310-09-2024 11:04-0400Systolic blood iprveuzj218 mm[Hg]Nolan Bautista MD Work Phone: [phone])[address] [place], [place] 4676301-18-2023 14:39-0500Blood Pressure LocationLansharone ClemonsExecutive Urology [facility]01-18-2023 14:39-0500Diastolic blood zbmnoruy55 mm[Hg]Akbar Ugalde [facility]01-18-2023 14:39-0500 Heart rate74 /minLanjessica ClemonsExecutive Urology [facility]01-18-2023 14:39-0500Systolic blood ieknyunh294 mm[Hg]Akbar BradleysExecutive Urology [facility] Encounters Encounter DateEncounter TypeCare ProviderFacilityStart: 64-72-0460plaxopszcb Briana X OrzechFacility:ANITRA [place]uskyStart: 12-22-2024 End: 13-61-0466XfjfrtKkztpwl [facility] MedinceComment on above: Primary insomniaStart: 12-06-2024 End: 62-58-8399wtggjbqqfeWuabhh X OrzechFacility:EU [place]kyStart: 12-06-2024 End: 43-44-4440Lzgivmj encounter procedureAurora X Orzech [facility] Start: 09-13-2024 End: 23-30-1607Mmufjz flowsheetJr. Sanjay Raymond DO Work Phone: [facility]oms [facility] OrthopaedicsStart: 09-13-2024 End: 45-15-0888Jhjkxt flowsheetJr. Sanjay Calianic DO Work Phone: [facility] OrthopaedicsStart: 09-13-2024 End: 35-13-7869Bxiyvj outpatient visit 15 minutesJr. Sanjay Raymond DO Work Phone: noms [facility] Pk OrthopaedicsComment on above:Primary osteoarthritis of right knee (Primary Dx); Acute pain of right kneeStart: 09-13-2024 End: 77-11-1543nfjcnrbqbnQG., SANJAY RYAMONDNot AvailableStart: 08-02-2024 End: 25-26-8844Ijooao flowsheetJr. Sanjay Raymond DO Work Phone: noms FB ORTHOPAEDICSStart: 08-02-2024 End: 12-22-6530Bxacod flowsheetJr. Sanjay Raymond DO Work Phone: noms FB ORTHOPAEDICSStart: 08-02-2024 End: 26-88-0936Omtfzo outpatient visit 15 minutesJr. Sanjay Raymond DO Work Phone: noms FB ORTHOPAEDICSComment on above:Primary osteoarthritis of right knee (Primary Dx); Acute pain of right knee; Acute lateral meniscus tear of right knee, initial encounterStart: 08-02-2024 End: 53-47-3714mxsoyxtnreHA., SANJAY Yarbrough AvailableStart: 07-27-2024 End: 93-57-4703dmxmfdrwpiSX., SANJAY RAYMONDNot AvailableStart: 07-26-2024 End: 17-03-6726Tjohca flowsheetJr. Sanjay Raymnod DO Work Phone: N[facility] FB ORTHOPAEDICSStart: 07-26-2024 End: 28-25-6857Zuqyvg flowsheetJr. Sanjay Torie Raymond DO Work Phone: [facility] FB ORTHOPAEDICSStart: 07-26-2024 End: 57-31-9352erjibrakcnIJ., SANJAY RAYMONDNot AvailableStart: 07-26-2024 End: 29-61-4945Rfnmsk outpatient new 30 minutesJr. Sanjay Raymond DO Work Phone: N[facility] FB ORTHOPAEDICSComment on above:Acute pain of right knee (Primary Dx); Primary osteoarthritis of right kneeStart: 07-26-2024 End: 85-15-0483xcqgqpkyovYJ., SANJAY Yarbrough AvailableStart: 06-20-2024 End: 71-61-7169XuyagaTlmnmi B Berry MD Work Phone: NOM[facility] CI FMComment on above:Primary insomniaStart: 06-16-2024 End: 69-08-1606Wckdat Karri Bautista MD Work Phone: [phone] CI FMStart: 06-16-2024 End: 84-28-9858Aqxjmh Karri Bautista MD Work Phone: [phone] CI FMStart: 06-16-2024 End: 68-55-6594Lfupv of hemosiderin, quantNolan Bautista MD Work Phone: NOMS HealthcareStart: 06-16-2024 End: 52-34-8306Ylzdzym encounter procedureNolan Bautista MD Work Phone: [facility] CI FMComment on above:Routine general medical examination at health care facility (Primary Dx); Primary osteoarthritis of right kneeStart: 06-16-2024 End: 80-85-9434stfiuxqntjIPRBRI B BERRYNot AvailableStart: 05-31-2024 End: 58-02-6234ivfsgvagsgNavfop X OrzechFacility:EU [place]Start: 05-30-2024 End: 19-21-7200Qamtqt Karri Bautista MD Work Phone: N[facility] CI FMStart: 05-30-2024 End: 07-25-4888Bydywc Karri Bautista MD Work Phone: [facility] CI FMStart: 05-30-2024 End: 55-78-2850Crcjbsdqi Result Wayne Bautista MD Work Phone: N[facility] External Department UnsolicitedStart: 05-30-2024 End: 21-07-0975lgqbamaawqAZHJKC B BERRYNot AvailableStart: 05-23-2024 End: 99-85-8347ujfmuyjnibXKVTHH [facility] Start: 05-16-2024 End: 33-65-3560Oasdel flowsRonti Torres MD Work Phone: noms [facility] DERMStart: 05-16-2024 End: 80-75-9139Uvpjme flowsRonit Torres MD Work Phone: [facility] DERMStart: 05-16-2024 End: 48-40-6136Axnckx outpatient visit 25 minutesEmcristopher Torres MD Work Phone: noms [facility] DERMComment on above:Other seborrheic dermatitis (Primary Dx); Melanocytic nevus of face, other location; Actinic keratosis; Capillary angioma; Sebaceous hyperplasia of face; History of basal cell carcinomaStart: 05-16-2024 End: 14-77-4296sjwsqzfqwxWYNPA A PETITTINot AvailableStart: 04-25-2024 End: 56-98-0812vcvnklwknfXfshlw X OrzechFacility:EU [place]Start: 03-18-2024 End: 29-75-0814Hsoyys Karri Bautista MD Work Phone: [facility] CI FMStart: 03-18-2024 End: 15-65-7883Grkiip Karri Bautista MD Work Phone: [facility] CI FMStart: 03-18-2024 End: 97-94-3142Nxloae outpatient visit 25 minutesDajaycee Bautista MD Work Phone: [facility] CI FMComment on above: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); Angioedema, initial encounterStart: 03-18-2024 End: 30-99-8214wdydkuftpjRTWOPC B BERRYNot AvailableStart: 03-10-2024 End: 22-04-1505MjtncoXhvllfx Gregory SHUED CI FMComment on above:Meniere's disease of both earsStart: 01-06-2024 End: 62-77-1402goqavpnmgoZERHXY [facility] Start: 12-11-2023 End: 27-74-7389KjwqqaWewvht B Berry MD Work Phone: [facility] CI FMComment on above:Primary insomniaStart: 12-01-2023 End: 99-98-6245gjnumhvctlZDWXTAshtabula County Medical Centertart: 11-27-2023 End: 54-56-7979Elzoinril Result EncounterGeneric External Data ProviderNOMS External Department UnsolicitedStart: 11-27-2023 End: 47-22-0408Mmwoudumq Result EncounterGeneric External Data ProviderNOMS External Department UnsolicitedStart: 11-25-2023 End: 33-88-3157Qmujxf Karri Bautista MD Work Phone: NOMS CI FMStart: 11-25-2023 End: 72-12-0195Otjyid Karri Bautista MD Work Phone: [facility] CI FMStart: 11-25-2023 End: 61-06-5783Kqapwpdvyzoi care manage srvc 14 day dischargeDguerrero Bautista MD Work Phone: NOMS CI FMComment on above:Atherosclerosis of [place] coronary artery of [place] heart without angina pectoris (CMS/HCC) (Primary Dx); Myocardial infarction involving right coronary artery, 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 Start: 06-25-2022 End: 48-45-4257vcggxrhgobSK DOCTOR MISCFacility:J8Nseuc: 03-24-2022 End: 90-60-6528Adzxvrj encounter procedurePapa KEENE [facility] [employer] Start: 03-05-2022 End: 45-55-0883Liwerkm encounter procedureLanjessica Umanzor ClemonsExecutive [facility] of [facility] Start: 11-11-2021 End: 54-48-0124jqinawtvawYG NOLAN BAUTISTAFacility:S1Ugfiq: 09-29-2016 End: 54-20-9263IfvauquejoUWGZRW T PURChillicothe [facility] Procedures DateProcedureProcedure DetailPerforming ClinicianStart: 21-05-6215Rgzmhcbgvw examination knee 1/2 viewsJrKayleen Raymond DO Work Phone: Start: 72-41-2305Qnkvosnnaz examination knee 3 views Nolan Bautista MD Work Phone: Start: 91-57-9588TPQAZXBCTGS SKIN LESIONVenecia Torres MD Work Phone: Start: 74-28-1834XG NIMESH PERF SPECT REST STRGeneric External Data ProviderStart: 19-36-3579JO ECHO DOPPLER COMPLETEGeneric External Data ProviderStart: 14-38-4620Byxhwir of cholecystectomyHistory of cholecystectomyNolan Bautista MD Work Phone: Start: 41-66-1171Zypmbfd of placement of stent for coronary artery diseaseS/P coronary artery stent placementNolan Bautista MD Work Phone: Start: 82-45-4813Gjnnfbjliy, device (physical object) Papa KEENE Start: 06-36-9983Dhuc removal of foreign body from left atriumLannette ClemonsComment on above:removal foreign body lt atrium, repair of perforation, cryomaze procedure, ASD closureStart: 02-01-2019 EsophagogastroduodenoscopyLannette ClemonsStart: 63-79-6859Hhuggcbfncjl cholecystectomyLannette ClemonsStart: 29-56-2755RbdydbenknmObdrivny [place] Start: 39-38-3198Jyhwsp repairLannette ClemonsComment on above:j8Yqpds: 12-19-2977Cqpgnmumrzl of blood vesselLannette ClemonsComment on above:with stent Start: 81-07-7178MhypahmprAyefjfcs ClemonsStart: 85-47-2847RbuasrdupgoubGrclreuf ClemonsCataract (disorder)Lannette ClemonsCholecystectomyLanjessica Aftab Excision of parapharyngeal massLannette ClemonsComment on above:r/o pharyngeal massTonsillectomyLannette Aftab Plan of Treatment DateCare ActivityDetailAuthorStart: 05-16-2025 End: 22-08-2733Gwrslqw encounter procedureNOMS SWS DERMStart: 01-06-2025 End: 38-69-1496Qwtiaiw encounter yawxfnxpa64/21/2025 11:15 AM EST Office Visit N[facility] [place] [facility] [address] [facility] [address] [place] [address] Nolan Bautista MD [address] [facility] [address] [place] [address] N[facility] [place] [facility] MedinceStart: 10-17-2024 COVID-19 Vaccine ( season)COVID-19 Vaccine ( season)NOMS HealthcareStart: 00-71-8142Hverwzqsv vaccinationInfluenza Vaccine (#1)NOMS HealthcareStart: 09-13-2024 End: 87-40-9205Oyadklo encounter procedureNOMS FB ORTHOPAEDICSComment on above: ArrivedStart: 08-02-2024 End: 13-81-8623Irhfjux encounter poodqppag80/17/2025 11:15 AM EDT Office Visit [facility] [address] [place] [phone] Jr. Sanjay Raymond DO [address] [facility] [address] [place] [address] ArrivedNOMS FB ORTHOPAEDICSComment on above:ArrivedStart: 07-26-2024 End: 23-18-7188Bullfmp encounter procedureNOMS FB ORTHOPAEDICSComment on above: Primary osteoarthritis of right kneeStart: 06-16-2024 End: 14-07-9510Utqpbzk encounter procedureNOMS CI FMComment on above:Primary osteoarthritis of right kneeStart: 05-30-2024 End: 33-65-3240Amafpmw encounter procedureNOMS CI FMComment on above:Arrived Start: 05-16-2024 End: 10-17-8116Tqwguvb encounter procedureNOMS SWS DERMComment on above:Arrived Start: 05-05-2024 End: 05-37-5081Uybwqdk encounter ajvtznuks75/20/2025 10:30 AM EDT Office Visit [facility] [address] [place] [phone] Venecia Torres MD [address] [place] [address] NOMS SWS DERMStart: 03-18-2024 End: 27-51-6952Txstieg encounter procedureNOMS CI FMComment on above:Arrived Start: 11-30-2023 End: 25-84-8707Degjbug encounter grnxjuksh66/14/2024 4:30 PM EDT Office Visit [facility] CI FM [address] [facility] [address] [place] [address] Nolan Bautista MD [address] [facility] [address] [place] [address] NOMS CI FMStart: 11-25-2023 End: 33-65-1799Fytpzqg encounter taajbiiqx62/09/2024 11:15 AM EDT Office Visit [facility] [address] [facility] [address] [place] [phone] Nolan Bautisat MD [address] [facility] [address] [place] [address] ArrivedNOMS CI FMComment on above:ArrivedStart: 10-18-2023 Influenza vaccinationInfluenza Vaccine (#1)[facility] Immunizations Immunization DateImmunizationNotesCare IwzdzeivXalibone53-91-2933pizsvigzt virus vaccine, unspecified formulationAuclaudette Porter [facility] [place] [address]692-12-2024influenza, high dose seasonal, preservative-Rizwana Bautista MD Work Phone: [facility]-SullivanVjbtcahybv44-46-7789FXGX-ZHY-1 (COVID-19) vaccine, mRNA, spike protein, LNP, PF, 50 mcg/0.5 mLNolan Bautista MD Work Phone: [facility] CenterXnuoxztarl64-75-0322xjpzjrbag virus vaccine, unspecified formulationJrKayleen Raymond DO Work Phone: [facility] [place] [address]690-06-2023influenza, high dose seasonal, preservative-Rizwana Bautista MD Work Phone: [facility]-SullivanHkxhrkletw11-71-6286svkvvlgcv virus vaccine, unspecified formulationNolan Bautista MD Work Phone: [facility]-SullivanWzetcqwkbx42-43-1209Fdoaifa SARS-CoV-2 50mcg/0.5mL BoosterNolan Bautista MD Work Phone: [facility] CenterBjmikojupv79-55-1970WBMT-NjM-2 (COVID-19) mRNAMUL.ORD!d81724EJQIKHKD MEGHAN [facility] [place] 238691-07-2022influenza virus vaccine, unspecified formulationJENNIFER MEGHAN [facility] [place] 238691-07-2022influenza, high dose seasonal, preservative-Rizwana Bautista MD Work Phone: [facility]-SullivanZqfkkkqeau17-75-9993ACNY-ScP-0 (COVID-19) mRNA- 1273 vaccineJENNIFER MEGHAN [facility] [place] [address]690-20-2021influenza virus vaccine, unspecified formulationJENNIFER MEGHAN [facility] [place] [address]690-20-2021influenza, high dose seasonal, preservative-Rizwana Bautista MD Work Phone: [facility]-SullivanCtprdkshwf93-32-0113txnkosv toxoid, reduced diphtheria toxoid, and acellular pertussis vaccine, adsorbedJENNIFER MEGHAN [facility]02-18-2021SARS-CoV-2 (COVID-19) mRNA-1273 vaccineJENNIFER MEGHAN [facility]01-18-2021SARS-CoV-2 (COVID-19) mRNA-1273 vaccineJENNIFER MEGHAN [facility] [place] 238692-05-2019zoster vaccine David Bautista MD Work Phone: [facility]SullivanQsrhvzyfgp46-41-7961gjtsmnrdc virus vaccine, unspecified formulationJENNIFER MEGHAN [facility] [place] 238691-21-2019Influenza, High-dose Seasonal, Quadrivalent, Preservative Free Nolan Bautista MD Work Phone: [facility]-SullivanHgirmiigys30-59-3609vixnbtiyc virus vaccine, unspecified formulationJENNIFER MEGHAN [facility] [place] 238692-06-2018Influenza, High-dose Seasonal, Quadrivalent, Preservative Free Nolan Bautista MD Work Phone: [facility]SullivanYjstesyxfu91-82-6927ysyqgykis virus vaccine, unspecified formulationJENNIFER MEGHAN [facility] [place] 238690-10-2017influenza, injectable, quadrivalent, preservative Rizwana Bautista MD Work Phone: [facility]SullivanGfchwsjrvj90-16-0639qlyoxnqjb, injectable, quadrivalent, preservative Rizwana Bautista MD Work Phone: [facility]SullivanKvoycuncby01-53-7798aqbcqzwquswr polysaccharide vaccine, 23 valDiane Bautista MD Work Phone: [facility]-SullivanLlckkagqen02-34-0830bzgcbslchrpm conjugate vaccine, 13 valentJENNIFER MEGHAN [facility]12-07-2015influenza virus vaccine, unspecified formulationJENNIFER MEGHAN [facility] [place] 238691-22-2015seasonal influenza, intradermal, preservative Rizwana Bautista MD Work Phone: [facility]SullivanOzdzzagvdd15-29-8978xktkbsbjn, injectable, quadrivalent, preservative Rizwana Bautista MD Work Phone: [facility]SullivanEajnwlvuir72-82-3237hobswiyx influenza, intradermal, preservative Rizwana Bautista MD Work Phone: [facility]SullivanJzjwkaisru64-54-0034WI(adult) unspecified formulationNolan Bautista MD Work Phone: [facility]-SullivanVlxohiitdi43-58-3374nztgyfd toxoid, reduced diphtheria toxoid, and acellular pertussis vaccine, adsorbedNolan Bautsita MD Work Phone: [facility]ullivanLuvzyzwcwi32-66-3567egbreyhqzyyl vaccine, unspecified formulationNolan Bautista MD Work Phone: TriggertrapMid [facility] CenterUixseimmra16-05-1592htqeidfvd, wholeJENNIFER PERRY [facility]07-01-2007pneumococcal polysaccharide vaccine, 23 valDiane Bautista MD Work Phone: [facility]SullivanIegrjkxftt95-99-9525hnbwqzqhlkxw polysaccharide vaccine, 23 Idalia Bautista MD Work Phone: [facility] Payers DatePayer CategoryPayerPolicy [id number] 2023Private Health [id number] of Defense ( and others) FOR LIFE [id number] 2022-Present [address] [place] [id number] () Member Subscriber Plan / Payer (Effective 2022-Present) Name: Dc Rasmussen MemberID: [id number] Relation to Subscriber: Self Name: Dc Rasmussen Payer ID: [id number] (NAIC) Group ID: Not on file Type: Not on file Address: [id number] [place] [id number] 2003Medicare [id number] of Defense ( and others)[id number] [id number] [id number] 2.0.1.790464.3.57[id number] 2.0.1.515700.3.57[id number] 2.840.1.736881.3.57[id number] 2.0.1.049379.3.57[id number] 2.840.1.504790.3.57[id number] 2.840.1.443645.3.57[id number] 2.16840.1.769891.3.57[id number] 2.16840.1.598034.3.57[id number] 2.16840.1.252149.3.57[id number] 2.840.1.741927.3.57[id number] 2.16.840.1.962826.3.57[id number] 2.16.840.1.589759.3.57[id number] 2.16.840.1.661156.3.57[id number] 2.16.840.1.928726.3.57[id number] 2.16.0.1.533908.3.57[id number] 2.16.0.1.130022.3.579.2.727 Social History DateTypeDetailFacilityStart: 03-05-2022 End: 14-43-1483Vefdrwa smoking statusEx-smoker (finding)[facility] CenteryStart: 50-71-3287Mnlqwyz smoking statusNever [facility] Hospitalart: 02-03-2023 End: 75-68-1111Hqv Assigned At [facility] Hospitaltart: 84-81-4524Wvpujhg smoking status NHISNever smoked tobaccoNOMS HealthcareStart: 74-44-2338Dvpvord use and exposureSmokeless tobacco non-userNOMS Healthcare Start: 09-07-2023 End: 10-85-4016Lfflliccz beverage intakeLifetime non-drinker (finding)NOMS HealthcareStart: 02-03-2023 End: 43-59-6529Flpyrhh of Social functionNOMS HealthcareWithin the last year, have you been afraid of your partner or ex-partner?NoNOMS HealthcareAre you now , , , , never or living with a partner? MarriedNOMS HealthcareHow often to you have a drink containing alcohol?NeverNOMS HealthcareDo you feel stress - tense, restless, nervous, or anxious, or unable to sleep at night because yourmind is troubled all the time - these days [OSQ] Only a littleNOMS Healthcare(I/We) worried whether (my/our) food would run out before (I/we) got money to buy more.Never trueNORI HealthcareStart: 07-16-2022 Alcohol CommentCaffeine type: coffeeUNIVERSITY OF UTAH HOSPITAL HealthcareStart: 93-91-4737Kiq assigned at birthNot on [facility] HealthcareHow often do you need to have someone help you when you read instructions, pamphlets, or other written material from your doctor or pharmacy [SILS]RarelyMiss[facility] Baptist Hospital-SullivanSexual OrientationExec[facility] Start: 70-00-8731PipSxej (finding)[facility] Functional Status DrptIbfrvvmbplSlqdilSvuwqxob95-38-4270Kutnfer Health Questionnaire 2 item (PHQ- 2) [Reported][facility]-SullivanPpnyqsfkiz92-28-3704Fmxwejr Health Questionnaire 2 item (PHQ- 2) [Reported][facility]-SullivanSbnusengxx52-97-8520Igvvndowfx StatusN/AExec[facility] of [facility]01-18-2023Functional StatusN/AExec[facility] Clinical Notes 03-24-2022 to 12-27-2024 Note Date & UkkcHprsRddjcnei95-72-6573 Telephone encounter Note* Telephone Encounter - Karen Rodriguez - 12/27/2024 9:40 AM EST Pt scheduled [facility]-SullivanOsuzbtlqdu66-10-4181 Miscellaneous Notes* Telephone Encounter - Karen Rodriguez - 12/27/2024 9:40 AM EST Pt scheduled * Telephone Encounter - Sherita Tolentino - 12/22/2024 2:35 PM EST LVM to call for controlled meds appointment * Telephone Encounter - LYNSEY Whitehead - 12/22/2024 11:17 AM EST Please help pt get set up for medication follow up appt with Dr. Bautista. Thank you. One month supply of Ambien sent in for pt. OARRS report generated and reviewed. documented in this encounterMissouri Baptist Hospital-SullivanBgnmviuoob61-72-4108 Telephone encounter Note* Telephone Encounter - Sherita Tolentino - 12/22/2024 2:35 PM EST LVM to call for controlled meds appointment [facility]-SullivanIydzbsyfmf39-25-9197 Telephone encounter Note* Telephone Encounter - LYNSEY Whitehead - 12/22/2024 11:17 AM EST Please help pt get set up for medication follow up appt with Dr. Bautista. Thank you. One month supply of Ambien sent in for pt. OARRS report generated and reviewed. [facility]-SullivanZkpumetgrd00-76-4722 Hospital Discharge instructions Patient Education 12/06/2024 11:39:36 Benign Prostatic Hyperplasia Benign Prostatic Hyperplasia Benign prostatic hyperplasia (BPH) is an enlarged prostate gland that is caused by the normal agingprocess. The prostate may get bigger as a man gets older. The condition is not caused by cancer. The prostate is a walnut-sized gland that is involved in the production of semen. It is located in front of the rectum and below the bladder. The bladder stores urine. The urethra carries stored urine ou t of the body. An enlarged prostate can press on the urethra. This can make it harder to pass urine. The buildup of urine in the bladder can cause infection. Back pressure and infection may progress to bladder damage and kidney (renal) failure. What are the causes? This condition is part of the normal aging process. However, not all men develop problems from thiscondition. If the prostate enlarges away from the urethra, urine flow will not be blocked. If it enlarges toward the urethra and compresses it, there will be problems passing urine. What increases the risk? This condition is more likely to develop in men older than 50 years. What are the signs or [...] urethra. Follow these instructions at home: Take uasv-lty-kyoyfaf and prescription medicines only as told by your health care provider. Monitor your symptoms for any changes. Contact your health care provider with any changes. Avoid drinking large amounts of liquid before going to bed or out in public. Avoid or reduce how much caffeine or alcohol you drink. Give yourself time when you urinate. Keep all follow-up visits. This is important. Contact a health care provider if: You have unexplained back pain. Your symptoms do not get better with treatment. You develop side effects from the medicine you are taking. Your urine becomes very dark or has a bad smell. Your lower abdomen becomes distended and you have trouble passing urine. Get help right away if: You have a fever or chills. You suddenly cannot urinate. You feel light-headed or very dizzy, or you faint. There are large amounts of blood or clots in your urine. Your urinary problems become hard to manage. You develop moderate to severe low back or flank pain. The flank is the side of your body between the ribs and the hip. These symptoms may be an emergency. Get help right away. Call 911. Do not wait to see if the symptoms will go away. Do not drive yourself to the hospital. Summary Benign prostatic hyperplasia (BPH) is an enlarged prostate that is caused by the normal aging process. It is not caused by cancer. An enlarged prostate can press on the urethra. This can make it hard to pass urine. This condition is more likely to develop in men older than 50 years. Get help right away if you suddenly cannot urinate. This information is not intended to replace advice given to you by your health care provider. Make sure you discuss any questions you have with your health care provider. Document Revised: 08/21/2021 Document Reviewed: 08/21/2021 [employer] Patient Education 2023 [employer]. 12/06/2024 11:39:11 Benign Prostatic Hyperplasia Benign Prostatic Hyperplasia Benign prostatic hyperplasia (BPH) is an enlarged prostate gland that is caused by the normal agingprocess. The prostate may get bigger as a man gets older. The condition is not caused by cancer. The prostate is a walnut-sized gland that is involved in the production of semen. It is located in front of the rectum and below the bladder. The bladder stores urine. The urethra carries stored urine ou t of the body. An enlarged prostate can press on the urethra. This can make it harder to pass urine. The buildup of urine in the bladder can cause infection. Back pressure and infection may progress to bladder damage and kidney (renal) failure. What are the causes? This condition is part of the normal aging process. However, not all men develop problems from thiscondition. If the prostate enlarges away from the urethra, urine flow will not be blocked. If it enlarges toward the urethra and compresses it, there will be problems passing urine. What increases the risk? This condition is more likely to develop in men older than 50 years. What are the signs or [...] urethra. Follow these instructions at home: Take gngb-jnj-hszvbxr and prescription medicines only as told by your health care provider. Monitor your symptoms for any changes. Contact your health care provider with any changes. Avoid drinking large amounts of liquid before going to bed or out in public. Avoid or reduce how much caffeine or alcohol you drink. Give yourself time when you urinate. Keep all follow-up visits. This is important. Contact a health care provider if: You have unexplained back pain. Your symptoms do not get better with treatment. You develop side effects from the medicine you are taking. Your urine becomes very dark or has a bad smell. Your lower abdomen becomes distended and you have trouble passing urine. Get help right away if: You have a fever or chills. You suddenly cannot urinate. You feel light-headed or very dizzy, or you faint. There are large amounts of blood or clots in your urine. Your urinary problems become hard to manage. You develop moderate to severe low back or flank pain. The flank is the side of your body between the ribs and the hip. These symptoms may be an emergency. Get help right away. Call 911. Do not wait to see if the symptoms will go away. Do not drive yourself to the hospital. Summary Benign prostatic hyperplasia (BPH) is an enlarged prostate that is caused by the normal aging process. It is not caused by cancer. An enlarged prostate can press on the urethra. This can make it hard to pass urine. This condition is more likely to develop in men older than 50 years. Get help right away if you suddenly cannot urinate. This information is not intended to replace advice given to you by your health care provider. Make sure you discuss any questions you have with your health care provider. Document Revised: 08/21/2021 Document Reviewed: 08/21/2021 [employer] Patient Education 2023 [employer]. Follow Up Care 05/31/2024 10:36:35 With:RUTH Porter APRN, ALINA Paige, URL Address: When: Unknown Comments:3 mos [facility] 10-21-2025 NotePatient Education Benign Prostatic Hyperplasia Benign prostatic hyperplasia (BPH) is an enlarged prostate gland that is caused by the normal agingprocess. The prostate may get bigger as a man gets older. The condition is not caused by cancer. The prostate is a walnut-sized gland that is involved in the production of semen. It is located in front of the rectum and below the bladder. The bladder stores urine. The urethra carries stored urine ou t of the body. An enlarged prostate can press on the urethra. This can make it harder to pass urine. The buildup of urine in the bladder can cause infection. Back pressure and infection may progress to bladder damage and kidney (renal) failure. What are the causes? This condition is part of the normal aging process. However, not all men develop problems from thiscondition. If the prostate enlarges away from the urethra, urine flow will not be blocked. If it enlarges toward the urethra and compresses it, there will be problems passing urine. What increases the risk? This condition is more likely to develop in men older than 50 years. What are the signs or symptoms? Symptoms of this condition include: ??? Getting up often during the night to urinate. ??? Needing to urinate frequently during the day. ??? Difficulty starting urine flow. ??? Decrease in size and strength of your urine stream. ??? Leaking (dribbling) after urinating. ??? Inability to pass urine. This needs immediate treatment. ??? Inability to completely empty your bladder. ??? Pain when you pass urine. This is more common if there is also an infection. ??? Urinary tract infection (UTI). How is this diagnosed? This condition is diagnosed based on your medical history, a physical exam, and your symptoms. Tests will also be done, such as: ??? A post-void bladder scan. This measures any amount of urine that may remain in your bladder after you finish urinating. ??? A digital rectal exam. In a rectal exam, your health care provider checks your prostate by putting a lubricated, gloved finger into your rectum to feel the back of your prostate gland. This exam detects the size of your gland and any abnormal lumps or growths. ??? An exam of your urine (urinalysis). ??? A prostate specific antigen (PSA) screening. This is a blood test used to screen for prostate cancer. ??? An ultrasound. This test uses sound waves [...] severity of your condition. Treatment may include: ??? Observation and yearly exams. This may be the only treatment needed if your condition and symptoms are mild. ??? Medicines to relieve your symptoms, including: ? Medicines to shrink the prostate. ? Medicines to relax the muscle of the prostate. ??? Surgery in severe cases. Surgery may include: ? Prostatectomy. In this procedure, the prostate tissue is removed completely through an open incision or with a laparoscope or robotics. ? Transurethral resection of the prostate (TURP). In this procedure, a tool is inserted through theopening at the tip of the penis (urethra). [...] procedure uses radio frequencies to destroy and removea small amount of prostate tissue. ? Interstitial laser coagulation (ILC). This procedure uses a laser to destroy and remove a small amount of prostate tissue. ? Transurethral electrovaporization (TUVP). This procedure uses electrodes to destroy and remove a small amount of prostate tissue. ? Prostatic urethral lift. This procedure inserts an implant to push the lobes of the prostate awayfrom the urethra. Follow these instructions at home: ??? Take [id number] and prescription medicines only as told by your health care provider. ??? Monitor your symptoms for any changes. Contact your health care provider with any changes. ??? Avoid drinking large amounts of liquid before going to bed or out in public. ??? Avoid or reduce how much caffeine or alcohol you drink. ??? Give yourself time when you urinate. ??? Keep all follow-up visits. This is important. Contact a health care provider if: ??? You have unexplained back pain. ??? Your symptoms do not get better wi (more content not included)...[facility]07-29-2025 History of Present illness Narrative* Jr. Sanjay Raymond, DO - 09/13/2024 10:30 AM EDT Images from the original note were not included. HISTORY OF PRESENT ILLNESS: EST PT Dc Rasmussen is an 89 y.o. @ male. EST PT RECHECK RT KNEE PAIN-DOING WELL XRAY RT KNEE EPIC 07/26/24 XRAY RT KNEE 05/30/24 [facility] (PUSHED TO CHANGE) MRI RT KNEE 07/27/24 EPIC CORTISONE INJECTIONS X 2 DR BAUTISTA PREDNISONE 5 DAYS DOING WELL. RT KNEE PAIN X 4.5 MONTHS. NKI. CONTINUES WEARING KNEE SLEEVE CONSTANTLY WITH RELIEF. LESS PAIN WHEN GOLFING. NO LONGER CLICKING/POPPING. DISCOMFORT WITH STAIRS. OCCAS BUCKLING, HAS FALLEN. DENIES LOCKING. DENIES PAIN AT HS. AMB WITH CANE. TAKING TYLENOL 500 2 TABS AT BEDTIME. TAKING IBU 200MG BID ALLERGIES: Allergies Allergen Reactions Tramadol Unknown Other Reaction(s): hallucinations Other reaction(s): Mental Status Change, Paranoia Acetaminophen Unknown Albuterol Unknown and Other migraines Ether Unknown Levofloxacin Other Reaction(s): RASH/angioedema Oxycodone Other Reaction(s): hallucinations Oxycodone-Acetaminophen Unknown Thiopental Unknown Guaifenesin-Codeine Rash Lidocaine Rash and GI intolerance Other reaction(s): Intolerance Propoxyphene Anxiety HOME MEDICATIONS: Current Outpatient Medications Medication Instructions Acetaminophen 500 MG capsule Every 4 hours PRN aspirin (ASPIRIN LOW DOSE) 81 mg, Daily atorvastatin (LIPITOR) 40 mg, Oral, Daily B Complex Vitamins (vitamin B complex) tablet 1 tablet, Daily cetirizine (ZYRTEC) 10 mg, Oral, Daily diazePAM (VALIUM) 5 mg, Oral, 2 times daily PRN diphenhydrAMINE (BENADRYL) 25 mg, Every morning finasteride (PROSCAR) 5 mg, Daily furosemide (LASIX) 40 mg, Oral, Daily ipratropium (Atrovent) 0.02 % nebulizer solution 1 vial, 4 times daily ipratropium (Atrovent) 0.06 % nasal spray 2 sprays, Each Nostril, 2 times daily ketoconazole (NIZOral) 2 % cream Apply thin layer to affected areas on face daily levalbuterol (Xopenex) 1.25 MG/0.5ML nebulizer solution 1 ampule, Every 8 hours PRN metoprolol succinate XL (Toprol-XL) 50 MG 24 hr tablet TAKE 1 & 1/2 (ONE AND ONE-HALF) TABLETS BY MOUTH IN THE MORNING and ONE TABLET BY MOUTH IN THE EVENING montelukast (SINGULAIR) 10 mg, Oral, Every morning nitroglycerin (NITROSTAT) 0.4 mg, Sublingual, Every 5 min PRN, DISSOLVE 1 TABLET UNDER THE TONGUE NEEDED FOR CHEST PAIN- MAY REPEAT EVERY 5 MINUTES IF NEEDED ( MAX 3 DOSES.- IF NO RELIEF CALL 911) pantoprazole (ProtoNix) 40 MG EC tablet TAKE 1 TABLET BY MOUTH IN THE MORNING BEFORE MEALS potassium chloride (Klor-Con) 20 MEQ packet 20 mEq, Oral, 2 times daily vitamin C 1,000 mg, Daily zolpidem (AMBIEN) 10 mg, Oral, Nightly PHYSICAL EXAM: Knee Musculoskeletal Exam Gait Gait is normal. Antalgic: right Limp: right Inspection Leg length disparity: no discrepancy Right Erythema: none Effusion: mild Edema: none Ecchymosis: none Deformity: none Alignment: normal Previous incision: no previous incision Palpation Right Right knee palpation is unremarkable. Increased warmth: none Masses: none Crepitus: patellofemoral Tenderness: present Patella: moderate Patellar tendon: mild Range of Motion Right Right knee range of motion is normal and full. Active extension: 0 Passive extension: 0 Active flexion: 130 Passive flexion: 130 Strength Right Right knee strength is normal. Extension: 5/5. Flexion: 5/5. Instability Right Instability signs: none - stable Varus stress grade: normal Valgus stress grade: normal Anterior drawer: normal Medial Aurora test: negative Lateral Aurora test: negative Neurovascular Right Right knee neurovascular exam is normal. Pulses - PT: normal Posterior tibial: 2+ Capillary refill: warm and well-perfused Special Signs Right Right knee special signs are normal. Straight leg raise: normal Patellar compression: severe Patellar apprehension: moderate General Constitutional: appears stated age Labored breathing: no Psychiatric: normal mood and affect Neurological: alert Skin: intact Lymphadenopathy: none Vitals: There is no height or weight on file to calculate BMI. Tobacco Use: Low Risk (06/16/2024) Patient History Smoking Tobacco Use: Never Smokeless Tobacco Use: Never Passive Exposure: Not on file Recent Concern: Tobacco Use - Medium Risk (05/23/2024) Received from [facility] Patient History Smoking Tobacco Use: Former Smokeless Tobacco Use: Never Passive Exposure: Not on file Alcohol Use: Not At Risk (02/03/2023) AUDIT-C Frequency of Alcohol Consumption: Never Average Number of Drinks: Patient does not drink Frequency of Binge Drinking: Never IMAGING: Procedures No orders of the defined types were placed in this encounter. ASSESSMENT: ICD-10-CM 1. Primary osteoarthritis of right knee M17.11 2. Acute pain of right knee M25.561 PLAN: Patient's right knee is completely asymptomatic is very pleased with his progress as am I. We will unrestricted activities and see him back when necessary. If his symptoms persist or worsen we may discuss a cortisone injection. Questions answered in laymen terms at the bedside. The diagnosis, home exercise plan and any ongoing restrictions/ recommendations reviewed. If unable to be reached in office, I recommend evaluation at nearest Emergency Room if any symptoms worsened or new symptoms develop for requiring urgent evaluation. documented in [facility] encounterMiss[facility]-[id number] History of Present illness Narrative* Jr. Sanjay Raymond DO - 08/02/2024 11:15 AM EDT Images from the original note were not included. HISTORY OF PRESENT ILLNESS: EST PT Dc Rasmussen is an 89 y.o. @ male. EST PT RECHECK RT KNEE PAIN- HERE FOR MRI RT KNEE RESULTS 07/27/24 EPIC SOME IMPROVEMENT IN PAIN FOR1 WEEK. + IBU X 1 WEEK. XRAY RT KNEE EPIC 07/26/24 XRAY RT KNEE 05/30/24 [facility] (PUSHED TO CHANGE) MRI RT KNEE 07/27/24 EPIC CORTISONE INJECTIONS X 2 DR BAUTISTA PREDNISONE 5 DAYS RT KNEE PAIN X 3 MONTHS. NKI. HE NOTES SOME IMPROVEMENT SINCE WEARING KNEE SLEEVE DAILY. PAIN IS UNDER THE PATELLA. WORSE WHEN GOLFING/LATERAL MOVEMENT AND STAIRS . + CLICKING/POPPING WITH PAIN. ADMITS BUCKLING, HAS FALLEN. DENIES LOCKING. DENIES PAIN AT HS. AMB WITH CANE. TAKING TYLENOL 500 2 TABSAT BEDTIME. TAKING IBU 200MG BID ALLERGIES: Allergies Allergen Reactions Tramadol Unknown Other Reaction(s): hallucinations Other reaction(s): Mental Status Change, Paranoia Acetaminophen Unknown Albuterol Unknown and Other migraines Ether Unknown Levofloxacin Other Reaction(s): RASH/angioedema Oxycodone Other Reaction(s): hallucinations Oxycodone-Acetaminophen Unknown Thiopental Unknown Guaifenesin-Codeine Rash Lidocaine Rash and GI intolerance Other reaction(s): Intolerance Propoxyphene Anxiety HOME MEDICATIONS: Current Outpatient Medications Medication Instructions Acetaminophen 500 MG capsule Every 4 hours PRN aspirin (ASPIRIN LOW DOSE) 81 mg, Daily atorvastatin (LIPITOR) 40 mg, Oral, Daily B Complex Vitamins (vitamin B complex) tablet 1 tablet, Daily cetirizine (ZYRTEC) 10 mg, Oral, Daily diazePAM (VALIUM) 5 mg, Oral, 2 times daily PRN diphenhydrAMINE (BENADRYL) 25 mg, Every morning finasteride (PROSCAR) 5 mg, Daily furosemide (LASIX) 40 mg, Oral, Daily ipratropium (Atrovent) 0.02 % nebulizer solution 1 vial, 4 times daily ipratropium (Atrovent) 0.06 % nasal spray 2 sprays, Each Nostril, 2 times daily ketoconazole (NIZOral) 2 % cream Apply thin layer to affected areas on face daily levalbuterol (Xopenex) 1.25 MG/0.5ML nebulizer solution 1 ampule, Every 8 hours PRN metoprolol succinate XL (Toprol-XL) 50 MG 24 hr tablet TAKE 1 & 1/2 (ONE AND ONE-HALF) TABLETS BY MOUTH IN THE MORNING and ONE TABLET BY MOUTH IN THE EVENING montelukast (SINGULAIR) 10 mg, Oral, Every morning nitroglycerin (NITROSTAT) 0.4 mg, Sublingual, Every 5 min PRN, DISSOLVE 1 TABLET UNDER THE TONGUE NEEDED FOR CHEST PAIN- MAY REPEAT EVERY 5 MINUTES IF NEEDED ( MAX 3 DOSES.- IF NO RELIEF CALL 911) pantoprazole (ProtoNix) 40 MG EC tablet TAKE 1 TABLET BY MOUTH IN THE MORNING BEFORE MEALS potassium chloride (Klor-Con) 20 MEQ packet 20 mEq, Oral, 2 times daily tamsulosin (FLOMAX) 0.4 mg, Oral, Daily vitamin C 1,000 mg, Daily zolpidem (AMBIEN) 10 mg, Oral, Nightly PHYSICAL EXAM: Knee Musculoskeletal Exam Gait Gait is normal. Limp: right Assistive device: cane Inspection Leg length disparity: no discrepancy Right Erythema: none Effusion: mild Edema: none Ecchymosis: none Deformity: none Alignment: normal Palpation Right Increased warmth: none Masses: none Tenderness: none Range of Motion Right Right knee range of motion is normal and full. Active extension: 0 Passive extension: 0 Active flexion: 120 Passive flexion: 125 Range of motion additional comments: No PAIN ON TERMINAL FLEXION AND EXTENSION Strength Right Right knee strength is normal. Extension: 5/5. Extension is not affected by pain. Flexion: 5/5. Flexion is not affected by pain. Instability Right Instability signs: none - stable Varus stress grade: normal Valgus stress grade: normal Anterior drawer: normal Medial Aurora test: negative Neurovascular Right Right knee neurovascular exam is normal. Pulses - PT: normal Posterior tibial: 2+ Capillary refill: warm and well-perfused Special Signs Right Right knee special signs are normal. Patellar apprehension: none General Constitutional: appears stated age Labored breathing: no Psychiatric: normal mood and affect Neurological: alert Skin: intact Lymphadenopathy: none Vitals: There is no height or weight on file to calculate BMI. Tobacco Use: Low Risk (06/16/2024) Patient History Smoking Tobacco Use: Never Smokeless Tobacco Use: Never Passive Exposure: Not on file Recent Concern: Tobacco Use - Medium Risk (05/23/2024) Received from [facility] Patient History Smoking Tobacco Use: Former Smokeless Tobacco Use: Never Passive Exposure: Not on file Alcohol Use: Not At Risk (02/03/2023) AUDIT-C Frequency of Alcohol Consumption: Never Average Number of Drinks: Patient does not drink Frequency of Binge Drinking: Never IMAGING: Procedures No orders of the defined types were placed in this encounter. ASSESSMENT: ICD-10-CM 1. Primary osteoarthritis of right knee M17.11 2. Acute pain of right knee M25.561 3. Acute lateral meniscus tear of right knee, initial encounter S83.281A PLAN: Patient is doing better today is very pleased with his progress as MRI. His MRI shows medial and lateral meniscus tears but I feel he is functioning too well. He is able to golf and get in and out ofthe car without the lightning ball type pain that he was experiencing previously. We'll see him back in 1 month if his symptoms persist or worsen we may discuss arthroscopy as he has had 2 injections in the last 6 weeks. Questions answered in laymen terms at the bedside. The diagnosis, home exercise plan and any ongoing restrictions/ recommendations reviewed. If unable to be reached in office, I recommend evaluation at nearest Emergency Room if any symptoms worsened or new symptoms develop for requiring urgent evaluation. documented in this encounterMiss[facility]-[id number] History of Present illness Narrative* Jr. Sanjay Raymond DO - 07/26/2024 10:15 AM EDT Images from the original note were not included. . Blood reschedules to have NAME: Dc Rasmussen : 1935 HISTORY OF PRESENT ILLNESS: NEW PT Dc Rasmussen is an 89 y.o. @ male. NEW PT; DR BAUTISTA REFERRAL WITH RT KNEE PAIN XRAY RT KNEE TODAY EPIC 07/26/24 XRAY RT KNEE 05/30/24 [facility] (PUSHED TO CHANGE) CORTISONE INJECTIONS X 2 DR BAUTISTA PREDNISONE 5 DAYS RT KNEE PAIN X 3 MONTHS. NKI. PAIN IS UNDER THE PATELLA. WORSE WHEN GOLFING/LATERAL MOVEMENT AND STAIRS . + CLICKING/POPPING WITH INTENSE PAIN. ADMITS BUCKLING, HAS FALLEN. DENIES LOCKING. DENIES PAIN AT HS. AMB WITH CANE. WEARING KNEE SLEEVE. TAKING TYLENOL 500 2 TABS AT BEDTIME. PAST MEDICAL HISTORY: Past Medical History: Diagnosis Date Actinic keratoses 01/2021 Acute renal failure 01/10/2019 Abd. Wall Hematoma Antral gastritis 04/2017 Esophagitis Arthritis Basal cell carcinoma Benign prostatic hyperplasia Chest pain 01/08/2020 CAD, A. fib CHF (congestive heart failure) ([facility]) Chronic cholecystitis 2018 Chronic cough COPD (chronic obstructive pulmonary disease) ([facility]) 12/2015 exacerbation/ Pneumonia Coronary artery disease COVID-19 11/11/2021 COVID-19 vaccine administered Moderna x2 Diverticulosis Esophageal reflux GERD (gastroesophageal reflux disease) H/O percutaneous transluminal coronary angioplasty 09/2018 STENT OF LAD Hemorrhoids History of angina Hyperlipidemia Insomnia Myocardial infarction (HCC) Personal history of medical treatment 09/06/2018 ECHO EF 58% Personal history of medical treatment 03/14/2019 ECHO EF 65% Rhinorrhea Sepsis (HCC) 10/24/2022 Shingles SOB (shortness of breath) 08/2018 Afib with RVR Tonic clonic seizures (HCC) PAST SURGICAL HISTORY: Past Surgical History: Procedure Laterality Date ANGIOPLASTY 1995 w/ stent COLONOSCOPY 05/06/2017 w/ EGD CT ANGIOGRAM CHEST 04/08/2017 CT ANGIOGRAM CHEST [facility] CT ANGIOGRAM CHEST 04/08/2017 CT ANGIOGRAM CHEST [facility] EGD 02/01/2019 HERNIA REPAIR 2003 x2 OTHER SURGICAL HISTORY Procedure:no pacemaker and no bypass;Disease:chest pain PHARYNGEAL CYST EXCISION LA LAP,CHOLECYSTECTOMY 12/2018 LA REMOVAL OF FOREIGN BODY Left 09/07/2019 t [facility], Repair of Perforation, CryoMaze Procedure, ASD Closure TONSILLECTOMY 1954 VASECTOMY 1968 SOCIAL HISTORY: Social History Occupational History Not on file Tobacco Use Smoking status: Never Smokeless tobacco: Never Vaping Use Vaping status: Never Used Substance and Sexual Activity Alcohol use: Never Comment: Caffeine type: coffee Drug use: Not on file Sexual activity: Not on file ALLERGIES: Allergies Allergen Reactions Tramadol Unknown Other Reaction(s): hallucinations Other reaction(s): Mental Status Change, Paranoia Acetaminophen Unknown Albuterol Unknown and Other migraines Ether Unknown Levofloxacin Other Reaction(s): RASH/angioedema Oxycodone Other Reaction(s): hallucinations Oxycodone-Acetaminophen Unknown Thiopental Unknown Guaifenesin-Codeine Rash Lidocaine Rash and GI intolerance Other reaction(s): Intolerance Propoxyphene Anxiety HOME MEDICATIONS: Current Outpatient Medications Medication Instructions Acetaminophen 500 MG capsule Every 4 hours PRN aspirin (ASPIRIN LOW DOSE) 81 mg, Daily atorvastatin (LIPITOR) 40 mg, Oral, Daily B Complex Vitamins (vitamin B complex) tablet 1 tablet, Daily cetirizine (ZYRTEC) 10 mg, Oral, Daily diazePAM (VALIUM) 5 mg, Oral, 2 times daily PRN diphenhydrAMINE (BENADRYL) 25 mg, Every morning finasteride (PROSCAR) 5 mg, Daily furosemide (LASIX) 40 mg, Oral, Daily ipratropium (Atrovent) 0.02 % nebulizer solution 1 vial, 4 times daily ipratropium (Atrovent) 0.06 % nasal spray 2 sprays, Each Nostril, 2 times daily ketoconazole (NIZOral) 2 % cream Apply thin layer to affected areas on face daily levalbuterol (Xopenex) 1.25 MG/0.5ML nebulizer solution 1 ampule, Every 8 hours PRN metoprolol succinate XL (Toprol-XL) 50 MG 24 hr tablet TAKE 1 & 1/2 (ONE AND ONE-HALF) TABLETS BY MOUTH IN THE MORNING and ONE TABLET BY MOUTH IN THE EVENING montelukast (SINGULAIR) 10 mg, Oral, Every morning nitroglycerin (NITROSTAT) 0.4 mg, Sublingual, Every 5 min PRN, DISSOLVE 1 TABLET UNDER THE TONGUE NEEDED FOR CHEST PAIN- MAY REPEAT EVERY 5 MINUTES IF NEEDED ( MAX 3 DOSES.- IF NO RELIEF CALL 911) pantoprazole (ProtoNix) 40 MG EC tablet TAKE 1 TABLET BY MOUTH IN THE MORNING BEFORE MEALS potassium chloride (Klor-Con) 20 MEQ packet 20 mEq, Oral, 2 times daily tamsulosin (FLOMAX) 0.4 mg, Oral, Daily vitamin C 1,000 mg, Daily zolpidem (AMBIEN) 10 mg, Oral, Nightly REVIEW OF SYSTEMS: Review of Systems Vitals: There is no height or weight on file to calculate BMI. Tobacco Use: Low Risk (06/16/2024) Patient History Smoking Tobacco Use: Never Smokeless Tobacco Use: Never Passive Exposure: Not on file Recent Concern: Tobacco Use - Medium Risk (05/23/2024) Received from [facility] Patient History Smoking Tobacco Use: Former Smokeless Tobacco Use: Never Passive Exposure: Not on file Alcohol Use: Not At Risk (02/03/2023) AUDIT-C Frequency of Alcohol Consumption: Never Average Number of Drinks: Patient does not drink Frequency of Binge Drinking: Never PHYSICAL EXAM: Knee Musculoskeletal Exam Gait Gait is normal. Limp: right Inspection Leg length disparity: no discrepancy Right Erythema: none Effusion: mild Edema: none Ecchymosis: none Deformity: none Alignment: normal Palpation Right Increased warmth: none Masses: none Tenderness: present Medial joint line: moderate Range of Motion Right Right knee range of motion is normal and full. Active extension: 0 Passive extension: 0 Active flexion: 120 Passive flexion: 125 Range of motion additional comments: + PAIN ON TERMINAL FLEXION AND EXTENSION Strength Right Right knee strength is normal. Extension: 5/5. Extension is affected by pain. Flexion: 5/5. Flexion is affected by pain. Instability Right Instability signs: none - stable Varus stress grade: normal Valgus stress grade: normal Anterior drawer: normal Medial Aurora test: positive Neurovascular Right Right knee neurovascular exam is normal. Pulses - PT: normal Posterior tibial: 2+ Capillary refill: warm and well-perfused Special Signs Right Right knee special signs are normal. Patellar apprehension: none General Constitutional: appears stated age Labored breathing: no Psychiatric: normal mood and affect Neurological: alert Skin: intact Lymphadenopathy: none IMAGING: XR knee 1 or 2 views right Imaging Result: AP and lateral of right knee showed varus deformity. There was narrowing of the medial joint line with evidence of flattening of the articular surfaces to the medial tibial plateau and medial femoralcondyle. There was evidence of subchondral sclerosis to the medial joint line and patellofemoral joint. There is marginal osteophytes noted to the medial joint line and patellofemoral joint. There isno evidence of fracture dislocations. Bony structures viewed showed appropriate ossification. Impression: Mild varus deforming arthritic degeneration , right knee. No acute bony process noted. Procedures Orders Placed This Encounter Procedures XR knee 1 or 2 views right Reason for exam:: PAIN MR knee right wo IV contrast Standing Status: Future Number of Occurrences: 1 Expected Date: 07/26/2024 Expiration Date: 07/26/2025 Scheduling Instructions: MRI RT KNEE WITHOUT CONTRAST JOSH WALLS; PLEASE CALL PT OT SCHEDULE Reason for exam:: RIGHT KNEE INTERNAL DERANGMENT ASSESSMENT: ICD-10-CM 1. Acute pain of right knee M25.561 XR knee 1 or 2 views right MR knee right wo IV contrast 2. Primary osteoarthritis of right knee M17.11 Ambulatory referral to Orthopaedic Surgery PLAN: We have discussed his symptoms, physical exam, and x-rays today at length. We have ordered an MRI to rule out loose body versus medial meniscus tear. We'll see him back following his MRI. He will tryMotrin [id number]. Questions answered in laymen terms at the bedside. The diagnosis, home exercise plan and any ongoing restrictions/ recommendations reviewed. If unable to be reached in office, I recommend evaluation at nearest Emergency Room if any symptoms worsened or new symptoms develop for requiring urgent evaluation. documented in this encounterMiss[facility]-[id number] History of Present illness Narrative* Nolan Bautista MD - 06/16/2024 11:00 AM EDT Images from the original note were not included. HPI Results Additional comments: KNEE XRAY Last edited by Flori Garrison LPN on 06/16/2024 10:57 AM. Subjective : Chief Complaint: Dc Rasmussen is an 89 y.o. male here for an annual wellness visit. I have reviewed and reconciled the history and medication list with the patient today. Current Outpatient Medications Medication Sig Dispense Refill Acetaminophen 500 MG capsule Take by mouth every 4 (four) hours if needed Ascorbic Acid (vitamin C) 1000 MG tablet Take 1,000 mg by mouth Daily aspirin (Aspirin Low Dose) 81 MG EC tablet Take 81 mg by mouth Daily atorvastatin (Lipitor) 20 MG tablet TAKE 2 TABLETS BY MOUTH IN THE MORNING 180 tablet 3 B Complex Vitamins (vitamin B complex) tablet Take 1 tablet by mouth Daily cetirizine (ZyrTEC) 10 MG tablet TAKE 1 TABLET BY MOUTH DAILY 90 tablet 3 diazePAM (Valium) 5 MG tablet Take 1 tablet (5 mg) by mouth 2 (two) times a day as needed for anxiety 60 tablet 5 diphenhydrAMINE (BENADryl) 25 MG tablet Take 25 mg by mouth in the morning. finasteride (Proscar) 5 MG tablet Take 5 mg by mouth Daily furosemide (Lasix) 40 MG tablet TAKE 1 TABLET BY MOUTH DAILY 90 tablet 3 ipratropium (Atrovent) 0.02 % nebulizer solution Take 1 vial by nebulization in the morning and 1 vial at noon and 1 vial in the evening and 1 vial before bedtime. ipratropium (Atrovent) 0.06 % nasal spray Administer 2 sprays into each nostril in the morning and 2 sprays before bedtime. 15 mL 1 ketoconazole (NIZOral) 2 % cream Apply thin layer to affected areas on face daily 60 g 11 levalbuterol (Xopenex) 1.25 MG/0.5ML nebulizer solution Take 1 ampule by nebulization every 8 (eight) hours if needed for wheezing metoprolol succinate XL (Toprol-XL) 50 MG 24 hr tablet TAKE 1 & 1/2 (ONE AND ONE-HALF) TABLETS BY MOUTH IN THE MORNING and ONE TABLET BY MOUTH IN THE EVENING 225 tablet 3 montelukast (Singulair) 10 MG tablet TAKE 1 TABLET BY MOUTH IN THE MORNING 90 tablet 3 nitroglycerin (Nitrostat) 0.[address] 1 tablet (0.4 mg) under the tongue every 5 (five) minutes if needed for chest pain DISSOLVE 1 TABLET UNDER THE TONGUE NEEDED FOR CHEST PAIN- MAY REPEAT EVERY 5 MINUTES IF NEEDED ( MAX 3 DOSES.- IF NO RELIEF CALL 911) 25 tablet 2 pantoprazole (ProtoNix) 40 MG EC tablet TAKE 1 TABLET BY MOUTH IN THE MORNING BEFORE MEALS 90 tablet 3 potassium chloride (Klor-Con) 20 MEQ packet Take 20 mEq by mouth in the morning and 20 mEq before bedtime. 180 each 3 tamsulosin (Flomax) 0.4 MG 24 hr capsule Take 1 capsule (0.4 mg) by mouth Daily 90 capsule 3 zolpidem (Ambien) 10 MG tablet TAKE 1 TABLET BY MOUTH AT BEDTIME 30 tablet 5 No current facility-administered medications for this visit. Review of Systems List of current healthcare providers: Patient Care Team: Nolan Bautista MD as PCP - General (Internal Medicine) Nolan Bautista MD as PCP - [facility]CO Reach Twyla Donahue LPN Medicare Annual Visit Over the past 2 weeks, how often have you been bothered by any of the following problems? Little interest or pleasure in doing things: Not at all Feeling down, depressed, or hopeless: Not at all Patient Health Questionnaire-2 Score: 0 Enrique Fall Risk History of Falling, Immediate or Within 3 Months: No Secondary Diagnosis: No Ambulatory Aid: Walks without aid/bedrest/nurse assist Health Risk Assessment Form Do you need help eating, bathing, using the toilet, dressing, or getting around your home?: No Can you prepare your own meals?: Yes Can you do your own housework without help?: Yes Can you shop for groceries or clothes without help?: Yes Do you exercise for about 20 minutes 3 or more days a week?: Yes How confident are you that you can control and manage most of your health problems?: Somewhat confident Can you mange your money, credit cards and accounts, pay bills and taxes?: Yes Cognitive Screening Three Word Registration: Apple, Watch, Shanda Clock Drawing: Normal Clock - 2 Three Word Recall: All 3 words correct - 3 Total Score (0-5 Points): 5 Pain Assessment Pain Score: 4 Advance Care Planning Do you have a living will?: Yes Do you have a medical power of gunner's mate?: No Objective : BP 124/64 Pulse 67 Ht 6' 3 Wt 198 lb SpO2 98% BMI 24.75 kg/m No results found. Physical Exam Constitutional: General: He is not in acute distress. Appearance: He is normal weight. He is not ill-appearing. HENT: Head: Normocephalic. Cardiovascular: Rate and Rhythm: Normal rate and regular rhythm. Heart sounds: Normal heart sounds. No murmur heard. Pulmonary: Effort: Pulmonary effort is normal. Breath sounds: Normal breath sounds. Abdominal: General: Abdomen is flat. Bowel sounds are decreased. There is no distension. Palpations: There is no mass. Tenderness: There is no abdominal tenderness. Musculoskeletal: General: No swelling. Right lower leg: No edema. Left lower leg: No edema. Neurological: Mental Status: He is alert. Psychiatric: Mood and Affect: Mood normal. Thought Content: Thought content normal. Judgment: Judgment normal. Assessment/Plan : The following health maintenance schedule was reviewed with the patient and provided in printed form in the after visit summary: Health Maintenance Topic Date Due Influenza Vaccine Completed Pneumococcal Vaccine: 65+ Years Completed Advance Care Planning Assessment/Plan Diagnoses and all orders for this visit: Routine general medical examination at health care facility Primary osteoarthritis of right knee - Ambulatory referral to Orthopaedic Surgery; Future No orders of the defined types were placed in this encounter. Electronically signed by Nolan Bautista MD on June 16, 2024 documented in this encounterMiss[facility]-[id number] NotePatient Education Urology Benign Prostatic Hyperplasia Benign prostatic hyperplasia (BPH) is an enlarged prostate gland that is caused by the normal agingprocess. The prostate may get bigger as a man gets older. The condition is not caused by cancer. The prostate is a walnut-sized gland that is involved in the production of semen. It is located in front of the rectum and below the bladder. The bladder stores urine. The urethra carries stored urine ou t of the body. An enlarged prostate can press on the urethra. This can make it harder to pass urine. The buildup of urine in the bladder can cause infection. Back pressure and infection may progress to bladder damage and kidney (renal) failure. What are the causes? This condition is part of the normal aging process. However, not all men develop problems from thiscondition. If the prostate enlarges away from the urethra, urine flow will not be blocked. If it enlarges toward the urethra and compresses it, there will be problems passing urine. What increases the risk? This condition is more likely to develop in men older than 50 years. What are the signs or symptoms? Symptoms of this condition include: ??? Getting up often during the night to urinate. ??? Needing to urinate frequently during the day. ??? Difficulty starting urine flow. ??? Decrease in size and strength of your urine stream. ??? Leaking (dribbling) after urinating. ??? Inability to pass urine. This needs immediate treatment. ??? Inability to completely empty your bladder. ??? Pain when you pass urine. This is more common if there is also an infection. ??? Urinary tract infection (UTI). How is this diagnosed? This condition is diagnosed based on your medical history, a physical exam, and your symptoms. Tests will also be done, such as: ??? A post-void bladder scan. This measures any amount of urine that may remain in your bladder after you finish urinating. ??? A digital rectal exam. In a rectal exam, your health care provider checks your prostate by putting a lubricated, gloved finger into your rectum to feel the back of your prostate gland. This exam detects the size of your gland and any abnormal lumps or growths. ??? An exam of your urine (urinalysis). ??? A prostate specific antigen (PSA) screening. This is a blood test used to screen for prostate cancer. ??? An ultrasound. This test uses sound waves [...] severity of your condition. Treatment may include: ??? Observation and yearly exams. This may be the only treatment needed if your condition and symptoms are mild. ??? Medicines to relieve your symptoms, including: ? Medicines to shrink the prostate. ? Medicines to relax the muscle of the prostate. ??? Surgery in severe cases. Surgery may include: ? Prostatectomy. In this procedure, the prostate tissue is removed completely through an open incision or with a laparoscope or robotics. ? Transurethral resection of the prostate (TURP). In this procedure, a tool is inserted through theopening at the tip of the penis (urethra). [...] procedure uses radio frequencies to destroy and removea small amount of prostate tissue. ? Interstitial laser coagulation (ILC). This procedure uses a laser to destroy and remove a small amount of prostate tissue. ? Transurethral electrovaporization (TUVP). This procedure uses electrodes to destroy and remove a small amount of prostate tissue. ? Prostatic urethral lift. This procedure inserts an implant to push the lobes of the prostate awayfrom the urethra. Follow these instructions at home: ??? Take kogd-pga-blggwrr and prescription medicines only as told by your health care provider. ??? Monitor your symptoms for any changes. Contact your health care provider with any changes. ??? Avoid drinking large amounts of liquid before going to bed or out in public. ??? Avoid or reduce how much caffeine or alcohol you drink. ??? Give yourself time when you urinate. ??? Keep all follow-up visits. This is important. Contact a health care provider if: ??? You have unexplained back pain. ??? Your symptoms do not get (more content not included)...[facility]04-07-2025 [facility] - [facility] Subjective Dc Rasmussen is a 88 y.o. year old male patient being seen for 6 month follow up. Patient states he is feeling ok. Patient states he has no cardiac complaints at this time. Patient Active Problem List Diagnosis ??? Localized edema ??? Lower urinary tract symptoms due to benign prostatic hyperplasia ??? Pharyngeal abscess ??? Status post percutaneous transluminal coronary angioplasty ??? Abnormal findings on diagnostic imaging of liver and biliary tract ??? Abnormal tomography of chest ??? Actinic keratoses ??? Alcohol dependency (CMS/HCC) ??? Allergic rhinitis ??? Allergy to soap ??? Arthritis ??? Atherosclerosis of coronary artery without angina pectoris ??? Basal cell carcinoma of face ??? Benign prostatic hyperplasia ??? Cervical spondylosis without myelopathy ??? Chronic cholecystitis ??? Chronic cough ??? Chronic obstructive pulmonary disease (CMS/HCC) ??? Cardiac tamponade ??? COVID-19 ??? Difficulty walking ??? Disorder of lung ??? Diverticulosis ??? Enlarged prostate ??? Eosinophilia ??? Exacerbation of asthma ??? Fatty liver ??? Arrhythmia ??? Heart murmur ??? Hemorrhoids ??? Hyperlipidemia ??? Hypertensive heart disease with congestive heart failure (CMS/HCC) ??? Hypokalemia ??? Incomplete bladder emptying ??? Late effect of internal injury to chest ??? Menieres disease ??? Mucopurulent chronic bronchitis (CMS/HCC) ??? Poor diet ??? Peripheral venous insufficiency ??? Paroxysmal atrial fibrillation (CMS/HCC) ??? Otitis externa ??? Myocardial infarction (CMS/HCC) ??? Seizure disorder (CMS/HCC) ??? Rhinorrhea ??? Pure hypercholesterolemia ??? Primary insomnia ??? Shingles ??? Split urinary stream ??? Ventricular premature beats ??? Vasomotor rhinitis ??? Tonic-clonic seizures (CMS/HCC) ??? Thoracic aortic aneurysm without rupture ??? Terminal esophageal web ??? Elevated LFTs ??? Abnormal finding of diagnostic imaging ??? Carcinoma of prostate (CMS/HCC) ??? Diastolic heart failure, stage B (CMS/HCC) ??? Edema due to malnutrition ??? Generalized osteoarthritis ??? Generalized seizure (CMS/HCC) ??? History of cholecystectomy ??? 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 Pharyngeal mass ??? Primary osteoarthritis, right shoulder ??? S/P coronary artery stent placement ??? Schatzki's ring ??? Sensorineural hearing loss (SNHL) of both ears ??? Venous stasis dermatitis of both lower extremities ??? Abdominal pain ??? Anemia ??? Debility ??? Edema of lower extremity ??? Encounter for deep vein thrombosis (DVT) prophylaxis ??? Hypoalbuminemia ??? Postoperative pain ??? Impaired mobility and endurance ??? Primary osteoarthritis of right knee ??? Precordial pain ??? Angio-edema ??? Former smoker Family History Problem Relation Name Age of Onset ??? Heart attack Mother ??? Cancer Father ??? Cancer Sister Social History Tobacco Use ??? Smoking status: Former Types: Cigarettes ??? Smokeless tobacco: Never Substance Use Topics ??? Alcohol use: Not Currently HPI He is seen in follow-up. He [...] with chest pain at the [facility] and work-up was negative. His EKG was normal. He underwent a nuclear stress test that showed no evidence of ischemia. he has history of ascending aortic aneurysm which is being monitored by imaging. He also has heart failure preserved ejection fraction and is maintained on diuretic therapy. On 11/13/2023 he was evaluated in the emergency room because of chest pain. He describes the symptom as pressure across the chest. He took s/l nitroglycerin with not much relief. His cardiac troponin was negative. He eventually ended up undergoing a stress test on 11/27/2023 that did not show ischemia. I last saw him on 01/06/2024 and he was doing well. Today he reports that he has been free from any cardiac symptoms specifically he denie (more content not included)...[facility] 05-16-2024 History of Present illness Narrative* Venecia Torres MD - 05/16/2024 1:00 PM EDT Skin Check Location: Patient requests a skin examination of the face only Dermatologic history: history of Actinic Keratosis, history of Basal Cell Carcinoma Last visit: 1 year ago Established patient All pertinent medical history, medications, and allergies were reviewed. General Exam: alert , oriented to person, place, and time , normal affect, well appearing uses a cane Unaccompanied A complete skin exam was offered, pt declined. Areas not examined despite medical recommendation: From the waist down and Under shirt Scalp, not examined Head, Face Examined Neck Examined Chest Not examined Back Not examined Abdomen Not examined Right arm Not examined Left arm Not examined Hands Not examined Digits,nails: Not examined Lymphatics: Not examined 1. Other seborrheic dermatitis Left Lower Cutaneous Lip, Mid Lower Cutaneous Lip, Right Lower Cutaneous Lip Erythema and scale. Discussed that seborrheic dermatitis is a chronic condition that can be controlled but not cured. Start ketoconazole cream, apply to affected areas on face once a day when flared. Notify office if flaring despite treatment. Area concerned about some areas of scabbing on the chin, appears to be scale from norma derm, emphasized to return to clinic in 1 month if these areas fail to resolve with treatment. Related Medications ketoconazole (NIZOral) 2 % cream Apply thin layer to affected areas on face daily 2. Melanocytic nevus of face, other location Head - Anterior (Face) Scattered benign appearing, regular brown to light brown melanocytic papules and macules with similar morphology Counseled regarding these benign growths. Rarely, a nevus can develop into malignant melanoma, so any changing nevi should be promptly re-evaluated. 3. Actinic keratosis (4) Left Parotid Area, Right Mid [place] (2), Right Superior Tonya of [place] Erythematous scaly papules Patient was counseled regarding these sun-induced growths that can develop into squamous cell carcinoma if left untreated. Discussed treatment with cryotherapy. It was emphasized that any treated lesions that fail to resolve should be re- evaluated. Cryotherapy performed today; see procedure note Diagnosis: Actinic keratosis Indication: Precancerous Location: see skin exam Consent: Verbal consent was obtained and risks were discussed, including, but not limited to risks of scarring, darker or momd teacher pigmentary changes, recurrence, incomplete removal and infection. Method: Liquid nitrogen was used to treat the lesion(s) with two 5-10 second freeze-thaw cycles. Eyes were shielded using cotton pad during procedure Number of lesions treated: 4 Post-procedure instructions: Instructions were given orally and in writing. The office will be contacted if the lesion fails to resolve despite treatment, or if a side effect develops such as abnormal crusting, scabbing, redness or tenderness Cryotherapy, skin lesion - Left Parotid Area, Right Mid [place] (2), Right [place] of [place] 4. Capillary angioma Right Superior [place] of [place] Scattered johns-red papule(s). The patient was informed that angiomas are benign growths on the the skin. No treatment is necessary. 5. Sebaceous hyperplasia of face Head - Anterior (Face) Small yellow papules with a central dell. Reassure, benign. Discussed these can be removed for a cosmetic fee with the hyfrecator if desired. 6. History of basal cell carcinoma Right Chin No evidence of recurrence at [facility] scar. The patient was counseled that scars from excisional sites of nonmelanoma skin cancers should be monitored closely for recurrence. The patient was instructed to contact the office for any new, changing, or symptomatic moles. The patient was also instructed to contact the office for any new lesions that develop within or around the previous surgery scar. Next Visit: 1 year, skin check documented in this encounterMissouri [facility] Hospital-[id number] NoteUrology Office/Clinic Note Chief Complaint Re-referral HPI Staff Re referral per Nolan Bautista MD due to BPH w/urinary obstruction Pt was last seen IO on 05/22/22 Previous DX: BPH w/urinary obstruction, incomplete bladder emptying, split urinary stream S/p Cysto/UD 03/24/22 by [facility] *Flomax 0.4mg qd IPSS 17 Pt. not able to give a urine sample today Pt. is not having any pain,blood in urine, abd pain or flank pain at this time History of Present Illness I have reviewed and verified the staff HPI to be accurate for this encounter. Portions of this record may have been created with voice recognition artificial intelligence software, specifically Enpocket, Rift[employer] and or Lakoo. Substitutions may have occurred due to the inherent limitations of voice recognition and artificial intelligence software. Review of Systems PHQ Score Initial Depression Screen Score: 0 SCORE Physical Exam Vitals & Measurements HR: 66(Peripheral) RR: 18 BP: 151/88 HT: 74 in HT: 188 cm WT: 94 kg WT: 207.234 lb BMI: 26.6 General: Well developed, well nourished, in no acute distress. Assessment/Plan [facility] pt, last seen IO 05/22/22 by GIBSON 1. BPH with urinary obstruction (N40.1: Benign prostatic hyperplasia with lower urinary tract symptoms) s/p cysto 03/24/22 - 4 cm prostatic urethra, lateral lobe hypertrophy, no median lobe. Moderate universal protrusion of the prostate into the bladder lumen. Bladder w/o tumors or stones, moderate trabeculation (2). No evidence of stricture. IPSS 17, QoL 5 Taking tamsulosin 0.4 mg QD. Was previously trial on 0.8 mg dosing, which did not offer him w/ any benefit and decision was made to decrease dosing at that time. No UA provided in office today Pt c/o worsening urinary sxs since prior OV. Primarily bothered by pre/post-void dribbling. Discussed likely worsening of prostate enlargement contributing this. We discussed possibility of another trial of inc tamsulosin dose, inc risk of SE vs trial of prostate shrinking med. Pt opts to trial incdose of tamsulosin. -inc tamsulosin to 0.8mg QD, watch for SE, rx sent to pharm -f/u 4-6 weeks for reeval, consider finasteride at that time if no improvement. Ordered: tamsulosin, 0.8 mg = 2 cap(s), Oral, Bedtime, # 60 cap(s), Refills(s) 11, Pharmacy: [id number], 188, cm, 04/25/24 9:11:00 EDT, Height/Length Dosing, 94, kg, 04/25/24 9:11:00 EDT, Weight Dosing 2. Post-void dribbling (N39.43: Post-void dribbling) Most bothersome urinary sx Reports worsening of pre and postvoid dribbling since prior OV. States the inital/end stream is split and typically does get him wet. Likely d/t BPH. See #1 3. Urinary frequency (R35.0: Frequency of micturition) q1-2 hr he attributes this to his furosemide, not bothersome to him at this time -cont to monitor 4. Former smoker (Z87.891: Personal history of nicotine dependence) Started at 20, 2 PPD Quit 1983 Inc risk of urothelial CA Other obstructive and reflux uropathy (N13.8: Other obstructive and reflux uropathy) Follow-up With When Contact Information German [employer], [employer], [employer], FAM, URL Additional Instructions: 4-6 wk Patient Education Benign Prostatic Hyperplasia Problem List/Past Medical History Ongoing A-fib Actinic keratoses Alcohol dependency Anemia Angio-edema Arrhythmia Arthritis Asthma Atherosclerosis of [place] coronary artery of [place] heart without angina pectoris Atrial fibrillation Basal cell carcinoma of skin BPH with urinary obstruction Carcinoma of prostate Chronic cholecystitis Chronic cough Chronic obstructive pulmonary disease Congestive heart failure Coronary artery disease COVID-19 Debility Difficulty walking Diverticulosis Edema due to malnutrition Edema of lower extremity Esophageal reflux Esophagitis Former smoker Generalized osteoarthritis Generalized seizure GERD (gastroesophageal reflux disease) Heart disease Heart murmur Hemorrhoids Hyperlipidemia Hypoalbuminemia Hypokalemia Incomplete bladder emptying Insomnia Menieres disease Myocardial infarction Otitis externa Perennial allergic rhinitis Pharyngeal abscess Pharyngeal mass Poor diet Pure hypercholesterolemia Rhinorrhea Schatzki's ring Seizure disorder Sensorineural hearing loss Shingles Small airways disease Split urinary stream Spondylosis of cervical region without myelopathy or radiculopathy Steatosis of liver Terminal esophageal web Thoracic aortic aneurysm without rupture Tonic-clonic seizures Vasomotor rhinitis Venous insufficiency, peripheral Historical Angina at rest Procedure/Surgical History Cystoscope (03/24/2022), Open removal of foreign body from left atrium (09/07/2019), Upper GI (gastrointestinal) endoscopy (02/01/2019), Laparoscopic cholecystectomy (12/2018), Colonoscopy (05/06/2017), Hernia repair (2002), Angioplasty (1995), Vasectomy (1968), Tons (more content not included)...[facility]:Result Comment: Electronically Signed By: RUTH Porter APRN, [place] X\.jadiel\Date and Time Signed: 04/25/24 09:37 EDT 04-25-2024 NotePatient Education Urology Benign Prostatic Hyperplasia Benign prostatic hyperplasia (BPH) is an enlarged prostate gland that is caused by the normal agingprocess. The prostate may get bigger as a man gets older. The condition is not caused by cancer. The prostate is a walnut-sized gland that is involved in the production of semen. It is located in front of the rectum and below the bladder. The bladder stores urine. The urethra carries stored urine ou t of the body. An enlarged prostate can press on the urethra. This can make it harder to pass urine. The buildup of urine in the bladder can cause infection. Back pressure and infection may progress to bladder damage and kidney (renal) failure. What are the causes? This condition is part of the normal aging process. However, not all men develop problems from thiscondition. If the prostate enlarges away from the urethra, urine flow will not be blocked. If it enlarges toward the urethra and compresses it, there will be problems passing urine. What increases the risk? This condition is more likely to develop in men older than 50 years. What are the signs or symptoms? Symptoms of this condition include: ??? Getting up often during the night to urinate. ??? Needing to urinate frequently during the day. ??? Difficulty starting urine flow. ??? Decrease in size and strength of your urine stream. ??? Leaking (dribbling) after urinating. ??? Inability to pass urine. This needs immediate treatment. ??? Inability to completely empty your bladder. ??? Pain when you pass urine. This is more common if there is also an infection. ??? Urinary tract infection (UTI). How is this diagnosed? This condition is diagnosed based on your medical history, a physical exam, and your symptoms. Tests will also be done, such as: ??? A post-void bladder scan. This measures any amount of urine that may remain in your bladder after you finish urinating. ??? A digital rectal exam. In a rectal exam, your health care provider checks your prostate by putting a lubricated, gloved finger into your rectum to feel the back of your prostate gland. This exam detects the size of your gland and any abnormal lumps or growths. ??? An exam of your urine (urinalysis). ??? A prostate specific antigen (PSA) screening. This is a blood test used to screen for prostate cancer. ??? An ultrasound. This test uses sound waves [...] severity of your condition. Treatment may include: ??? Observation and yearly exams. This may be the only treatment needed if your condition and symptoms are mild. ??? Medicines to relieve your symptoms, including: ? Medicines to shrink the prostate. ? Medicines to relax the muscle of the prostate. ??? Surgery in severe cases. Surgery may include: ? Prostatectomy. In this procedure, the prostate tissue is removed completely through an open incision or with a laparoscope or robotics. ? Transurethral resection of the prostate (TURP). In this procedure, a tool is inserted through theopening at the tip of the penis (urethra). [...] procedure uses radio frequencies to destroy and removea small amount of prostate tissue. ? Interstitial laser coagulation (ILC). This procedure uses a laser to destroy and remove a small amount of prostate tissue. ? Transurethral electrovaporization (TUVP). This procedure uses electrodes to destroy and remove a small amount of prostate tissue. ? Prostatic urethral lift. This procedure inserts an implant to push the lobes of the prostate awayfrom the urethra. Follow these instructions at home: ??? Take yaej-ehe-goxjwlg and prescription medicines only as told by your health care provider. ??? Monitor your symptoms for any changes. Contact your health care provider with any changes. ??? Avoid drinking large amounts of liquid before going to bed or out in public. ??? Avoid or reduce how much caffeine or alcohol you drink. ??? Give yourself time when you urinate. ??? Keep all follow-up visits. This is important. Contact a health care provider if: ??? You have unexplained back pain. ??? Your symptoms do not get (more content not included)...[facility]01[facility] History of Present illness Narrative* Nolan Bautista MD - 03/18/2024 11:00 AM EST Images from the original note were not included. Subjective Patient ID: Dc Rasmussen is a 88 y.o. male who presents for swelling around lips. Pt states he had some edema around lips that lasted 6 weeks he believes it was from new chapstick he had tried he states symptoms have resolved he took benedryl Current Outpatient Medications on File Prior to Visit Medication Sig Dispense Refill Acetaminophen 500 MG capsule Take by mouth every 4 (four) hours if needed. Ascorbic Acid (vitamin C) 1000 MG tablet Take 1,000 mg by mouth in the morning. aspirin (Aspirin Low Dose) 81 MG EC tablet Take 81 mg by mouth in the morning. atorvastatin (Lipitor) 20 MG tablet TAKE 2 TABLETS BY MOUTH IN THE MORNING 180 tablet 3 B Complex Vitamins (vitamin B complex) tablet Take 1 tablet by mouth in the morning. cetirizine (ZyrTEC ALLERGY) 10 MG tablet Take 1 tablet (10 mg) by mouth Daily 90 tablet 3 diazePAM (Valium) 5 MG tablet Take 1 tablet (5 mg) by mouth 2 (two) times a day as needed for anxiety 60 tablet 5 diphenhydrAMINE (BENADryl) 25 MG tablet Take 25 mg by mouth in the morning. furosemide (Lasix) 40 MG tablet Take 1 tablet (40 mg) by mouth Daily 90 tablet 3 ipratropium (Atrovent) 0.02 % nebulizer solution Take 1 vial by nebulization in the morning and 1 vial at noon and 1 vial in the evening and 1 vial before bedtime. ipratropium (Atrovent) 0.06 % nasal spray Administer 2 sprays into each nostril in the morning and 2 sprays before bedtime. 15 mL 1 levalbuterol (Xopenex) 1.25 MG/0.5ML nebulizer solution Take 1 ampule by nebulization every 8 (eight) hours if needed for wheezing metoprolol succinate XL (Toprol-XL) 50 MG 24 hr tablet Take 1.5 tablets (75 mg) by mouth in morningand take 1 tab (50 mg) in evening. 225 tablet 3 montelukast (Singulair) 10 MG tablet TAKE 1 TABLET BY MOUTH IN THE MORNING 90 tablet 3 nitroglycerin (Nitrostat) 0.[address] 1 tablet (0.4 mg) under the tongue every 5 (five) minutes if needed for chest pain DISSOLVE 1 TABLET UNDER THE TONGUE NEEDED FOR CHEST PAIN- MAY REPEAT EVERY 5 MINUTES IF NEEDED ( MAX 3 DOSES.- IF NO RELIEF CALL 911) 25 tablet 2 pantoprazole (ProtoNix) 40 MG EC tablet Take 1 tablet (40 mg) by mouth in the morning. Take before meals. 90 tablet 3 potassium chloride (Klor-Con) 20 MEQ packet Take 20 mEq by mouth in the morning and 20 mEq before bedtime. 180 each 3 tamsulosin (Flomax) 0.4 MG 24 hr capsule Take 1 capsule (0.4 mg) by mouth Daily 90 capsule 3 zolpidem (Ambien) 10 MG tablet TAKE 1 TABLET BY MOUTH AT BEDTIME 30 tablet 5 No current facility-administered medications on file prior to visit. I have reviewed and reconciled the history and medication list with the patient today. Allergies Allergen Reactions Tramadol Unknown Other Reaction(s): hallucinations Other reaction(s): Mental Status Change, Paranoia Acetaminophen Unknown Albuterol Unknown and Other migraines Ether Unknown Levofloxacin Other Reaction(s): RASH/angioedema Oxycodone Other Reaction(s): hallucinations Oxycodone-Acetaminophen Unknown Thiopental Unknown Guaifenesin-Codeine Rash Lidocaine Rash and GI intolerance Other reaction(s): Intolerance Propoxyphene Anxiety Social History Tobacco Use Smoking status: Never Smokeless tobacco: Never Vaping Use Vaping status: Never Used Substance Use Topics Alcohol use: Never Comment: Caffeine type: coffee Family History Problem Relation Name Age of Onset Hypertension Mother Heart disease Mother Cancer Father Colon cancer Sibling Past Medical History: Diagnosis Date Actinic keratoses 01/2021 Acute renal failure ([facility]) 01/10/2019 Abd. Wall Hematoma Antral gastritis 04/2017 Esophagitis Arthritis Basal cell carcinoma Benign prostatic hyperplasia Chest pain 01/08/2020 CAD, A. fib CHF (congestive heart failure) ([facility]) Chronic cholecystitis 2018 Chronic cough COPD (chronic obstructive pulmonary disease) ([facility]) 12/2015 exacerbation/ Pneumonia Coronary artery disease ([facility]) COVID-19 11/11/2021 COVID-19 vaccine administered Moderna x2 Diverticulosis Esophageal reflux GERD (gastroesophageal reflux disease) H/O percutaneous transluminal coronary angioplasty 09/2018 STENT OF LAD Hemorrhoids History of angina Hyperlipidemia ([facility]) Insomnia Myocardial infarction ([facility]) Personal history of medical treatment 09/06/2018 ECHO EF 58% Personal history of medical treatment 03/14/2019 ECHO EF 65% Rhinorrhea Sepsis ([facility]) 10/24/2022 Shingles SOB (shortness of breath) 08/2018 Afib with RVR Tonic clonic seizures ([facility]) Past Surgical History: Procedure Laterality Date ANGIOPLASTY 1995 w/ stent COLONOSCOPY 05/06/2017 w/ EGD CT ANGIOGRAM CHEST 04/08/2017 CT ANGIOGRAM CHEST [facility] CT ANGIOGRAM CHEST 04/08/2017 CT ANGIOGRAM CHEST [facility] EGD 02/01/2019 HERNIA REPAIR 2003 x2 OTHER SURGICAL HISTORY Procedure:no pacemaker and no bypass;Disease:chest pain PHARYNGEAL CYST EXCISION LA LAP,CHOLECYSTECTOMY 12/2018 LA REMOVAL OF FOREIGN BODY Left 09/07/2019 t [facility], Repair of Perforation, CryoMaze Procedure, ASD Closure TONSILLECTOMY 1955 VASECTOMY 1969 Visit Vitals Ht 6' 3 BMI 24.62 kg/m Smoking Status Never BSA 2.18 m Review of Systems Objective Physical Exam Constitutional: General: He is not in acute distress. Appearance: He is normal weight. He is not ill-appearing. HENT: Head: Normocephalic. Cardiovascular: Rate and Rhythm: Normal rate and regular rhythm. Heart sounds: Normal heart sounds. No murmur heard. Pulmonary: Effort: Pulmonary effort is normal. Breath sounds: Normal breath sounds. Abdominal: General: Abdomen is flat. Bowel sounds are decreased. There is no distension. Palpations: There is no mass. Tenderness: There is no abdominal tenderness. Musculoskeletal: General: No swelling. Right lower leg: No edema. Left lower leg: No edema. Neurological: Mental Status: He is alert. Psychiatric: Mood and Affect: Mood normal. Thought Content: Thought content normal. Judgment: Judgment normal. Assessment/Plan No follow-ups on file. documented in this [facility]01-23-2025 Telephone encounter Note* Telephone Encounter - Nolan Bautista MD - 03/10/2024 12:49 PM EST [id number] Miscellaneous Notes* Telephone Encounter - Nolan Bautista MD - 03/10/2024 12:49 PM EST RX sent. documented in this [facility]11-20-2024 NoteUT Cardiology - [facility] Subjective Dc Rasmussen is a 88 y.o. year old male patient being seen for follow up TBH and stress test per Dr. Taylor. Denies recurrent chest pain. Also denies SOB, LE edema, and palpitations. Doing very well. Patient Active Problem List Diagnosis Localized edema [...] vein thrombosis (DVT) prophylaxis Hypoalbuminemia Postoperative pain Impaired mobility and endurance Primary osteoarthritis of right knee Precordial pain No family history on file. Social [...] with chest pain at the [facility] and work-up was negative. His EKG was normal. He underwent a nuclear stress test that showed no evidence of ischemia. he has history of ascending aortic aneurysm which is being monitored by imaging. He also has heart failure preserved ejection fraction and is maintained on diuretic therapy. On 11/13/2023 he was evaluated in the emergency room because of chest pain. He describes the symptom as pressure across the chest. He took s/l nitroglycerin with not much relief. His cardiac troponin was negative. He eventually ended up undergoing a stress test on 11/27/2023 that did not show ischemia. Today he reports that he has been doing well. he denies chest pain [No recurrence since the episode of 11/13/2023], shortness of breath, palpitations, dizziness, syncope. He has no leg edema. he has good exercise tolerance. There is no claudication. Review of Systems HENT: Positive for hearing loss. Musculoskeletal: Positive for muscle weakness. Neurological: Positive for weakness. All other systems reviewed and are negative. Objective Visit Vitals BP 126/66 (BP Location: Left arm, Patient Position: Sitting) Pulse 67 Ht 1.905 m (6' 3 ) Wt 90.7 kg (200 lb) SpO2 96% (more content not included)...[facility] 12-01-2023 NoteUT Cardiology - [facility] Subjective Dc Rasmussen is a 88 y.o. year old male patient being seen for coronary artery disease and chest pain Patient Active Problem List Diagnosis Localized edema [...] vein thrombosis (DVT) prophylaxis Hypoalbuminemia Postoperative pain Impaired mobility and endurance Primary osteoarthritis of right knee HPI Patient presented to the ER 11/13/2023 with chest discomfort he describes it as tightness in the upper chest and the upper shoulders when he woke up in the morning. He could not differentiate if it is related to his heart or to his acid reflux, he took antiacid reflux and it did not help therefore he decided to come to the emergency room. His EKG did not show any acute changes and cardiac enzymes were negative so he was discharged home. He followed up with his PCP in few days and EKG was repeated and it was felt that there was a new Q waves therefore he was sent again to the ED on 11/25/2023. EKG in the ED did not show any significant changes from 11/13/2023 and labs were again normal. He was scheduled for stress test performed 11/27/2023 in the form of Lexiscan nuclear stress test which showed fixed inferior defect but normal left ventricle systolic function indicating that it was probably attenuation defect. The patient states that he did not have any recurrent chest discomfort since 11/13/2023. He states that he continues to walk and plays golf without any chest pain or shortness of breath. He states that he walks with a cane because he has bad left knee. He denies orthopnea or paroxysmal nocturnal dyspnea or dizziness or palpitations or legs edema Patient reports poor appetite over the last 2 to 3 months loss of about 8 pounds of weight over the last 3 months ROS All systems were reviewed and they were negative except for the positive findings noted above in the history, Past Medical History: Diagnosis Date Abnormal ECG Alcohol abuse, in remission Arrhythmia Atrial fibrillation (CMS/HCC) CHF (congestive heart failure) (CMS/HCC) Coronary artery disease GERD (gastroesophageal reflux disease) Heart valve disease HLD (hyperlipidemia) Hypertension OH (myocardial infarction) (CMS/HCC) Past Surgical History: Procedure Laterality Date CTA HEART CORONARY W IV CONTRAST 08/30/2019 CT HEART CORONARY ANGIOGRAM SHIPMAN CONVERSION No family history on file. Social History Tobacco Use Smoking status: Former Types: Cigarettes Smokeless tobacco: Never Allergies Allergies Allergen Reactions Tramadol Unknown Other reaction(s): Mental Status Change, Paranoia Albuterol Other migraines Codeine-Guaifenesin Other reaction(s): RASH Ether Other reaction(s): Unknown Levofloxacin Other reaction(s): RASH/angioedema Lidocaine Other reaction(s): Intolerance Oxycodone Hcl Other reaction(s): hallucin (more content not included)...[facility]10-09-2024 History of Present illness Narrative* Nolan Bautista MD - 11/25/2023 11:15 AM EDT Images from the original note were not included. HPI Follow-up Additional comments: [facility] stay 11/13/23 dx: CP,CHF discharged home 11/14/23 no meds changed pt was advised to call cardiology and sched appt and stress test-- he is sched for stress test 11/27/23 and was advised to follow up with pcp Last edited by Flori Garrison LPN on 11/25/2023 11:10 AM. Subjective Patient ID: Dc Rasmussen is a 88 y.o. male who presents for Follow-up ([facility] stay 11/13/23 dx: CP,CHF discharged home 11/14/23 no meds changed pt was advised to call cardiology and sched appt and stress test-- he is sched for stress test 11/27/23 and was advised to follow up with pcp). Flowsheet Row Patient Outreach from 11/18/2022 in [facility] with Sarah Cantu LPN Hospital Information ED, Hospital or Senior Care Facility Discharge? Hospital Patient has been contacted within two business days of discharge Yes Discharge Date 11/16/22 Discharged To: Senior Care Facility (specify SNF in comments) [[facility]] Discharge Hospital [facility] Engagement Call Start Time 1440 Medications Discharge medications reviewed and reconciled from hospital? No Is the patient having any side effects they believe may be caused by any medication additions or changes? No Appointments Does the patient have a primary care provider? Yes Has the patient kept scheduled appointments due by today? Yes Self Management Patient Teaching Wrap Up Call End Time 0445 Pt uses nitroglycerin as needed Pt states he does not have an appetite he has lost weight Current Outpatient Medications on File Prior to Visit Medication Sig Dispense Refill Acetaminophen 500 MG capsule Take by mouth every 4 (four) hours if needed. Ascorbic Acid (vitamin C) 1000 MG tablet Take 1,000 mg by mouth in the morning. aspirin (Aspirin Low Dose) 81 MG EC tablet Take 81 mg by mouth in the morning. atorvastatin (Lipitor) 20 MG tablet Take 2 tablets (40 mg) by mouth in the morning. 180 tablet 3 B Complex Vitamins (vitamin B complex) tablet Take 1 tablet by mouth in the morning. cetirizine (ZyrTEC ALLERGY) 10 MG tablet Take 1 tablet (10 mg) by mouth Daily 90 tablet 3 diazePAM (Valium) 5 MG tablet Take 1 tablet (5 mg) by mouth 2 (two) times a day as needed for anxiety 60 tablet 0 diphenhydrAMINE (BENADryl) 25 MG tablet Take 25 mg by mouth in the morning. furosemide (Lasix) 40 MG tablet Take 1 tablet (40 mg) by mouth Daily 90 tablet 3 ipratropium (Atrovent) 0.02 % nebulizer solution Take 1 vial by nebulization in the morning and 1 vial at noon and 1 vial in the evening and 1 vial before bedtime. ipratropium (Atrovent) 0.06 % nasal spray Administer 2 sprays into each nostril in the morning and 2 sprays before bedtime. 15 mL 1 levalbuterol (Xopenex) 1.25 MG/0.5ML nebulizer solution Take 1 ampule by nebulization every 8 (eight) hours if needed for wheezing metoprolol succinate XL (Toprol-XL) 50 MG 24 hr tablet Take 1.5 tablets (75 mg) by mouth in morningand take 1 tab (50 mg) in evening. 225 tablet 3 montelukast (Singulair) 10 MG tablet Take 1 tablet (10 mg) by mouth in the morning. 90 tablet 3 nitroglycerin (Nitrostat) 0.[address] 1 tablet (0.4 mg) under the tongue every 5 (five) minutes if needed for chest pain DISSOLVE 1 TABLET UNDER THE TONGUE NEEDED FOR CHEST PAIN- MAY REPEAT EVERY 5 MINUTES IF NEEDED ( MAX 3 DOSES.- IF NO RELIEF CALL 911) 25 tablet 2 pantoprazole (ProtoNix) 40 MG EC tablet Take 1 tablet (40 mg) by mouth in the morning. Take before meals. 90 tablet 3 potassium chloride (Klor-Con) 20 MEQ packet Take 20 mEq by mouth in the morning and 20 mEq before bedtime. 180 each 3 tamsulosin (Flomax) 0.4 MG 24 hr capsule Take 1 capsule (0.4 mg) by mouth Daily 90 capsule 3 zolpidem (Ambien) 10 MG tablet Take 1 tablet (10 mg) by mouth at bedtime 30 tablet 5 [DISCONTINUED] potassium chloride CR (Klor-Con) 10 MEQ ER tablet Take 3 tablets (30 mEq) by mouth in the morning and 3 tablets (30 mEq) before bedtime. 540 tablet 0 No current facility-administered medications on file prior to visit. I have reviewed and reconciled the history and medication list with the patient today. Allergies Allergen Reactions Tramadol Unknown Other Reaction(s): hallucinations Other reaction(s): Mental Status Change, Paranoia Acetaminophen Unknown Albuterol Unknown and Other migraines Ether Unknown Levofloxacin Other Reaction(s): RASH/angioedema Oxycodone Other Reaction(s): hallucinations Oxycodone-Acetaminophen Unknown Thiopental Unknown Guaifenesin-Codeine Rash Lidocaine Rash and GI intolerance Other reaction(s): Intolerance Propoxyphene Anxiety Social History Tobacco Use Smoking status: Never Smokeless tobacco: Never Vaping Use Vaping status: Never Used Substance Use Topics Alcohol use: Never Comment: Caffeine type: coffee Family History Problem Relation Name Age of Onset Hypertension Mother Heart disease Mother Cancer Father Colon cancer Sibling Past Medical History: Diagnosis Date Actinic keratoses 01/2021 Acute renal failure ([facility]) 01/10/2019 Abd. Wall Hematoma Antral gastritis 04/2017 Esophagitis Arthritis Basal cell carcinoma Benign prostatic hyperplasia Chest pain 01/08/2020 CAD, A. fib CHF (congestive heart failure) ([facility]) Chronic cholecystitis 2018 Chronic cough COPD (chronic obstructive pulmonary disease) ([facility]) 12/2015 exacerbation/ Pneumonia Coronary artery disease ([facility]) COVID-19 11/11/2021 COVID-19 vaccine administered Moderna x2 Diverticulosis Esophageal reflux GERD (gastroesophageal reflux disease) H/O percutaneous transluminal coronary angioplasty 09/2018 STENT OF LAD Hemorrhoids History of angina Hyperlipidemia (CMS/HCC) Insomnia Myocardial infarction (CMS/HCC) Personal history of medical treatment 09/06/2018 ECHO EF 58% Personal history of medical treatment 03/14/2019 ECHO EF 65% Rhinorrhea Sepsis (CMS/HCC) 10/24/2022 Shingles SOB (shortness of breath) 08/2018 Afib with RVR Tonic clonic seizures (CMS/HCC) Past Surgical History: Procedure Laterality Date ANGIOPLASTY 1995 w/ stent COLONOSCOPY 05/06/2017 w/ EGD CT ANGIOGRAM CHEST 04/08/2017 CT ANGIOGRAM CHEST [facility] DATA LEGACY CT ANGIOGRAM CHEST 04/08/2017 CT ANGIOGRAM CHEST [facility]GAC[facility] EGD 02/01/2019 HERNIA REPAIR 2003 x2 OTHER SURGICAL HISTORY Procedure:no pacemaker and no bypass;Disease:chest pain PHARYNGEAL CYST EXCISION LA LAP,CHOLECYSTECTOMY 12/2018 LA REMOVAL OF FOREIGN BODY Left 09/07/2019 t [facility], Repair of Perforation, CryoMaze Procedure, ASD Closure TONSILLECTOMY 1954 VASECTOMY 1969 Visit Vitals BP 124/66 Pulse 70 Temp 97.4 F Ht 6' 3 Wt 197 lb SpO2 100% BMI 24.62 kg/m Smoking Status Never BSA 2.18 m Review of Systems Constitutional: Positive for appetite change and fatigue. Respiratory: Negative for shortness of breath and wheezing. Cardiovascular: Positive for chest pain. Negative for palpitations and leg swelling. Gastrointestinal: Positive for constipation. Objective Physical Exam Constitutional: General: He is not in acute distress. Appearance: He is normal weight. He is not ill-appearing. HENT: Head: Normocephalic. Cardiovascular: Rate and Rhythm: Normal rate and regular rhythm. Heart sounds: Normal heart sounds. No murmur heard. Pulmonary: Effort: Pulmonary effort is normal. Breath sounds: Normal breath sounds. Abdominal: General: Abdomen is flat. Bowel sounds are decreased. There is no distension. Palpations: There is no mass. Tenderness: There is no abdominal tenderness. Musculoskeletal: General: No swelling. Right lower leg: No edema. Left lower leg: No edema. Neurological: Mental Status: He is alert. Psychiatric: Mood and Affect: Mood normal. Thought Content: Thought content normal. Judgment: Judgment normal. Assessment/Plan Diagnoses and all orders for this visit: Atherosclerosis of [place] coronary artery of [place] heart without angina pectoris (CMS/HCC) Myocardial infarction involving right coronary artery, unspecified [place] type (CMS/HCC) - Suspected by inferior Q waves on EKG since recent hospital stay, recent history, and PMHx. The patient was seen today in follow up of recent hospital stay. All available hospital records were reviewed and discussed with the patient. Hospital discharge meds were reviewed. He was set back to the ERfor suspected interval inferior [place], ER MD was called by me and the case was discussed. Follow up for Routine F/U. [id number] NoteUT Cardiology - [facility] Subjective Dc Rasmussen is a [...] with chest pain at the [facility] and work-up was negative. His EKG [...] Neck: Thyroid: No thyromegaly. (more content not included)...[facility]02-06-2023 Hospital Discharge instructions Patient Education 03/24/2022 07:37:00 Benign Prostatic Hyperplasia Benign Prostatic Hyperplasia Benign prostatic hyperplasia (BPH) is an enlarged prostate gland that is caused by the normal agingprocess and not by cancer. The prostate is [...] urethra. Follow these instructions at home: Take [id number] and prescription medicines only as told by [...] 02/02/2006 Document Revised: 12/28/2018 Document Reviewed: 03/09/2017 [employer] Patient Education 2020 [employer] Follow Up Care 03/14/2022 11:33:52 With:YECENIA KIM, Papa Velarde, URL Address: [address] [place] [id number]- When: Unknown [facility] Evaluation + Plan note No data available for this section [facility] Evaluation + Plan note Future Appointments Appointment Date:05/22/2022 02:30:00 PM Scheduled Provider:SIMEON CHRISTIANSON PA-C Location:[facility] Appointment Type:URO Office Visit [facility] evaluation + Plan note Future Appointments Appointment Date:03/13/2025 11:00:00 AM Scheduled Provider:RUTH Porter APRN, [place] [facility] Location:[facility] Appointment Type:URO Office Visit [facility] evaluation note* Diagnosis Atherosclerosis of [place] coronary artery of [place] heart without angina pectoris (CMS/HCC)- Primary Myocardial infarction involving right coronary artery, unspecified [place] type (CMS/HCC) [facility] Diagnosis Primary insomnia Persistent disorder of initiating or maintaining sleep [facility]* Diagnosis Meniere's disease of both ears [facility]* Diagnosis Benign prostatic hyperplasia with urinary obstruction- Primary Angioedema, initial encounter [facility]* Diagnosis Other seborrheic dermatitis- Primary Melanocytic nevus of face, other location Actinic keratosis Capillary angioma Nevus, non-neoplastic Sebaceous hyperplasia of face History of basal cell carcinoma Personal history of other malignant neoplasm of skin [facility]* Diagnosis Routine general medical examination at health care facility- Primary Routine general medical examination at a health care facility Primary osteoarthritis of right knee [facility]* Diagnosis Primary insomnia Persistent disorder of initiating or maintaining sleep [facility]* Diagnosis Acute pain of right knee- Primary Primary osteoarthritis of right knee Acute pain of right knee [facility]* Diagnosis Primary osteoarthritis of right knee- Primary Acute pain of right knee Acute lateral meniscus tear of right knee, initial encounter [facility]* Diagnosis Primary osteoarthritis of right knee- Primary Acute pain of right knee [facility]* Diagnosis Primary insomnia Persistent disorder of initiating or maintaining sleep [facility] No data available for this section [facility] Progress note No data available for this section [facility] Summary Purpose Family History No Family [...] section and content) DATE CREATED AUTHOR 08/12/2017 [facility] DATE CREATED AUTHOR AUTHOR'S ORGANIZ ATION 09/14/2020 [facility] DATE CREATED AUTHOR AUTHOR'S ORGANIZ ATION 04/16/2021 [facility] [employer] [employer] DATE CREATED AUTHOR AUTHOR'S ORGANIZ ATION 06/29/2022 [facility] DATE CREATED AUTHOR AUTHOR'S ORGANIZ ATION 2024 [facility] DATE CREATED AUTHOR AUTHOR'S ORGANIZ ATION 06/24/2024 [facility] DATE CREATED AUTHOR AUTHOR'S ORGANIZ ATION 09/14/2024 [facility] [facility] DATE CREATED AUTHOR AUTHOR'S ORGANIZ ATION 12/07/2024 [facility] Patient Care team informatio n (unrecognized section and content) Team MemberRelationshipSpecialtyStart DateEnd Date Nolan Bautista MD [address] [place] [address] [address] [place] [address] PCP - GeneralInternal Medicine07/02/22 Nolan Bautista MD [address] [place] [address] PCP - [facility]07/10/22Team MemberRelationshipSpecialtyStart DateEnd Nolan Bautista MD [address] [place] [address] [facility] - [facility] Nolan Bautista MD [address] [place] [address] PCP - [facility]07/10/22Te MemberRelationshipSpecialtyStart DateEnd Date Nolan Bautista MD [address] [place] [address] PCP - [facility]07/02/22 Nolan Bautista MD [address] [place] [address] [facility] - [facility]07/10/22Te MemberRelationshipSpecialtyStart DateEnd Date Nolan Bautista MD [address] [place] [address] PCP - [facility]07/02/22 Nolan Bautista MD [address] [place] [address] PCP - [facility]07/10/22Te MemberRelationshipSpecialtyStart DateEnd Date Nolan Bautista MD [address] [place] [address] PCP - GeneralInternal Medicine07/02/22 Nolan Bautista MD [address] [place] [address] PCP - [facility]07/10/22Team MemberRelationshipSpecialtyStart DateEnd Date Nolan Bautista MD [address] [place] [address] [facility] - [facility]/22 Nolan Bautista MD [address] [place] [address] PCP - [facility]07/10/22Team MemberRelationshipSpecialtyStart DateEnd Date Nolan Bautista MD [address] [place] [address] [facility] - [facility]/22 Nolan Bautista MD [address] [place] [address] PCP - [facility]07/10/22 Twyla Donahue, [employer] 05/04/24Team MemberRelationshipSpecialtyStart DateEnd Date Nolan Bautista MD [address] [place] [address] [facility] - [facility]/22 Nolan Batuista MD [address] [place] [address] PCP - [facility]07/10/22 Twyla Donahue, [employer] PROGRAM[employer] 05/04/24Team MemberRelationshipSpecialtyStart DateEnd Date Nolan Bautista MD [address] [place] [address] PCP - GeneralInternal Medicine07/02/22 Nolan Bautista MD [address] [place] [address] PCP - [facility]07/10/22 DonahueTwyla, [facility] 05/04/24Team MemberRelationshipSpecialtyStart DateEnd Date Nolan Bautista MD [address] [place] [address] PCP - GeneralInternal Medicine07/02/22 Nolan Bautista MD [address] [place] [address] PCP - [facility]07/10/22 Twyla Donahue, [facility] 05/04/24Te MemberRelationshipSpecialtyStart DateEnd Date Nolan Bautista MD [address] [place] [address] PCP - GeneralInternal Medicine07/02/22 Nolan Bautista MD [address] [place] [address] PCP - [facility]07/10/22 Oli Donahueika, [facility] 05/04/24Team MemberRelationshipSpecialtyStart DateEnd Date Nolan Bautista MD [address] [place] [address] PCP - GeneralInternal Medicine07/02/22 Nolan Bautista MD [address] [place] [address] PCP - [facility]07/10/22 Twyla Donahue LPN 05/04/24Team MemberRelationshipSpecialtyStart DateEnd Date Nolan Bautista MD [address] [place] [address] PCP - GeneralInternal Medicine07/02/22 Nolan Bautista MD [address] [place] [address] PCP - [facility]07/10/22 Twyla Donahue LPN [address] [place] [address] 05/04/24Team MemberRelationshipSpecialtyStart DateEnd Date Nolan Bautista MD [address] [place] [address] [facility]/22 Nolan Bautista MD [address] [place] [address] PCP - [facility]07/10/22 Twyla Donahue LPN [address] [place] [address] 05/04/24Team MemberRelationshipSpecialtyStart DateEnd Date Noaln Bautista MD [address] [place] [address] [facility]07/02/22 Nolan Bautista MD [address] [place] [address] PCP - [facility]07/10/22 Twyla Donahue LPN [address] [place] [address] 05/04/24Team MemberRelationshipSpecialtyStart DateEnd Date Nolan Bautista MD [address] [place] [address] PCP - GeneralInternal Medicine07/02/22 Nolan Bautista MD [address] [place] [address] PCP - [facility]07/10/22 Twyla Donahue LPN [address] [place] [address] 05/04/24Team MemberRelationshipSpecialtyStart DateEnd Date Nolan Bautista MD [address] [place] [address] PCP - GeneralInternal Medicine07/02/22 Nolan Bautista MD [address] [place] [address] PCP - [facility]07/10/22 Twyla Donahue LPN [address] [place] [address] 05/04/24Team MemberRelationshipSpecialtyStart DateEnd Date Nolan Bautista MD [address] [place] [address] PCP - GeneralInternal Medicine07/02/22 Nolan Bautista MD [address] [place] [address] PCP - [facility]07/10/22 Celeste Silva, RN [address] [place] [address] Clinical AdvocateFamily Medicine Twyla Donahue LPN [address] [facility] [address] [place] [address] Team MemberRelationshipSpecialtyStart DateEnd Date Nolan Bautista MD [address] [facility] [address] [place] [address] PCP - GeneralInternal Medicine07/02/22 Nolan Bautista MD [address] [facility] [address] [place] [address] PCP - [facility]07/10/22 Celeste Silva RN [address] [place] [address] Clinical [facility]ocateFamily [facility] Twyla Donahue LPN [address] [facility] [address] [place] [address] Team MemberRelationshipSpecialtyStart DateEnd Date Nolan Bautista MD [address] [facility] [address] [place] [address] PCP - GeneralInternal Medicine07/02/22 Nolan Bautista MD [address] [facility] [address] [place] [address] PCP - [facility]07/10/22 Reason for Visit (unrecogniz ed section and content) ReasonCommentsFollow-upTBH stay 11/13/23 dx: CP,CHF discharged home 11/14/23 no meds changed pt was advised to call cardiology and sched appt and stress test-- he is sched for stress test 11/27/23 and was advised to follow up with pcpReason CommentsMed RefillReasonOnset DateCommentsMed Xeqcrq4203/10/2024ReasonComments swelling around lipsReasonCommentsSkin CheckReasonCommentsMedicare Annual Wellness Visit SubsequentResultsKNEE XRAYReasonOnset DateCommentsMed Refill 06/20/2024ReasonCommentsPainSpecialtyDiagnoses / ProceduresReferred By Contact Referred To ContactOrthopaedic Surgery Diagnoses Primary osteoarthritis of right knee Nolan Bautista MD [address] [facility] [address] [place] [address] Phone: tel: fax: Jr. Sanjay Raymond, [address] [place] [address] Phone: tel: fax: Referral IDStatusReasonStart DateExpiration DateVisits RequestedVisits [id number] Specialty Services Required [id number]-vdFtkabcYfdaa Date CommentsMed Ruezxe1712/22/2024 FOR RECORDS PERTAINING TO PATIENTS WHO ARE [...] BE BASED ON THE PRIMARY CLINICAL RECORDS. [employer] [facility]. provides no warranty or guarantee of the accuracy or completeness of information in this document.
--- OUTSIDE RECORDS SUMMARY | 2025-02-11 20:43 | XMS_ITS | Clinical Summary ---
Author Organization [facility] Address [address] [facility] [address] Care Team Providers Care Home Health Rn Name Role Phone Nolan Bautista MD Primary Care Provider [phone] Nolan Bautista MD Unavailable [phone] Allergies Active AllergyReactionsCriticalityNoted DateCommentsAcetaminophenUnknown 02/01/2019AlbuterolUnknown,Other09/29/2016 migraines LzaziPpullqa77/23/2023Guaifenesin-BagtekoSyvtCaq75/27/4026Rlgcmvlnpelv57/27/2021 Other Reaction(s): RASH/angioedema LidocaineRash,GI byiyhhhpinqQdy01/14/2017 Other reaction(s): Intolerance Awgeeobmw76/23/2023 Other Reaction(s): hallucinations Oxycodone-SyictbehbfuzgYpscyru23/23/6563MusxoizrbktqAfcfnbjSfk62/04/2010 QpjceqlfzgEsqupry35/23/7747EgxtenmxXggqvikFvorjw33/14/2017 Other Reaction(s): hallucinations Other reaction(s): Mental Status Change, Paranoia Medications MedicationSigDispense QuantityRefillsLast FilledStart DateEnd DateStatus aspirin (Aspirin Low Dose) 81 MG EC tablet Take 81 mg by mouth DailyActive Acetaminophen 500 MG capsule Take by mouth every 4 (four) hours if neededActive Ascorbic Acid (vitamin C) 1000 MG tablet Take 1,000 mg by mouth DailyActive B Complex Vitamins (vitamin B complex) tablet Take 1 tablet by mouth DailyActive ipratropium (Atrovent) 0.02 % nebulizer solution Take 1 vial by nebulization in the morning and 1 vial at noon and 1 vial in the evening and 1 vial before bedtime.07/08/2018Active ipratropium (Atrovent) 0.06 % nasal spray Indications:Perennial allergic rhinitisAdminister 2 sprays into each nostril in the morning and 2 sprays before bedtime. 15 mL ctive diphenhydrAMINE (BENADryl) 25 MG tablet Take 25 mg by mouth in the morning.Active levalbuterol (Xopenex) 1.25 MG/0.5ML nebulizer solution Take 1 ampule by nebulization every 8 (eight) hours if needed for wheezingActive nitroglycerin (Nitrostat) 0.4 MG SL tablet Indications:Diastolic heart failure, stage B (HCC)Place 1 tablet (0.4 mg) under the tongue every 5 (five) minutes if needed for chest pain DISSOLVE 1TABLET UNDER THE TONGUE NEEDED FOR CHEST PAIN- MAY REPEAT EVERY 5 MINUTES IF NEEDED ( MAX 3 DOSES.- IF NO RELIEF CALL 911) 25 tablet 4Active cetirizine (ZyrTEC) 10 MG tablet Indications:Eosinophilia, unspecified typeTAKE 1 TABLET BY MOUTH DAILY 90 tablet tive furosemide (Lasix) 40 MG tablet Indications:Diastolic heart failure, stage B (HCC)TAKE 1 TABLET BY MOUTH DAILY 90 tablet 5Active metoprolol succinate XL (Toprol-XL) 50 MG 24 hr tablet Indications:Paroxysmal atrial fibrillation (HCC)TAKE 1 & 1/2 (ONE AND ONE-HALF) TABLETS BY MOUTH IN THE MORNING and ONE TABLET BY MOUTH IN THE EVENING 225 tablet 5Active pantoprazole (ProtoNix) 40 MG EC tablet Indications:Gastroesophageal reflux disease with esophagitis, unspecified whether hemorrhageTAKE 1 TABLET BY MOUTH IN THE MORNING BEFORE MEALS 90 tablet 5Active ketoconazole (NIZOral) 2 % cream Indications:Other seborrheic dermatitisApply thin layer to affected areas on face daily 60 g 1105Active finasteride (Proscar) 5 MG tablet Take 5 mg by mouth Daily5Active tamsulosin (Flomax) 0.4 MG 24 hr capsule Take 0.4 mg by mouth Daily5Active atorvastatin (Lipitor) 20 MG tablet Indications:Pure hypercholesterolemiaTake 2 tablets (40 mg) by mouth Daily 180 tablet 5Active montelukast (Singulair) 10 MG tablet Indications:Idiopathic hypereosinophilic syndrome,Mild intermittent asthma without complication (HCC),Perennial allergic rhinitisTake 1 tablet (10 mg) by mouth in the morning. 90 tablet 5Active diazePAM (Valium) 5 MG tablet Indications:Meniere's disease of both earsTake 1 tablet (5 mg) by mouth 2 (two) times a day as needed for anxiety 60 tablet 5Active potassium chloride CR (Klor-Con M10) 10 MEQ ER tablet Indications:Diastolic heart failure, stage B (HCC),Stage 3a chronic kidney disease (CMS-HCC)Take 2 tablets (20 mEq) by mouth in the morning and 2 tablets (20 mEq) before bedtime. Do not crushor chew. 120 tablet 516Active zolpidem (Ambien) 10 MG tablet Indications:Primary insomniaTake 1 tablet (10 mg) by mouth at bedtime 30 tablet //6Active zolpidem (Ambien) 10 MG tablet Indications:Primary insomniaTake 1 tablet (10 mg) by mouth at bedtime 30 tablet Discontinued(Reorder) Active Problems ProblemNoted DateDiagnosed DateStage 3a chronic kidney vznhlbn2901/06/2025 Angio-edema03/18/2024Primary osteoarthritis of right knee09/07/2023bdominal pain07/15/20234835Yybhdm79/29/9046Vrwqomcj57/29/2024Edema of lower extremity 07/15/2023Encounter for deep vein thrombosis (DVT) blxysibywkm64/29/2024 Iedwgfhnqkrzrgu01/29/2024ostoperative pain07/15/2023Hx of maze procedure 12/15/2022Sensorineural hearing loss (SNHL) of both ears11/03/2022History of ophcbgflycxksrx34/18/2023 Overview (11/03/2022): Jan 20, 2019 Entered By: SENTHIL MELTON MD Comment: laparoscopic, 12/2018 Generalized lnvqyxj0311/03/2022arcinoma of pvplezet10/18/2023Elevated LFTs 10/27/2022bnormal finding of diagnostic oodmgey0507/08/2022bnormal findings on diagnostic imaging of liver and biliary tract07/08/20222617Yuqtqtkent60/23/2023 Atherosclerosis of [place] coronary artery of [place] heart without angina zbpwuyef93/23/2023trial xmoczygcjeam22/23/2023asal cell carcinoma of skin 07/08/2022enign prostatic hyperplasia with urinary vqyuzjoggcv24/23/2023ardiac tamponade ([facility])07/08/2022hronic cough07/08/2022iastolic heart failure, stage B007/08/2022Hypertensive heart disease with congestive heart failure 07/08/2022ifficulty tsryytb2907/08/2022Edema due to malnutrition ([facility]) 07/08/20226444Zlenousqnzbr03/23/2023Esophageal cldggk7307/08/2022Hiatal hernia 07/08/20224622Jdvdra63/23/2023Exacerbation of ccqqny4907/08/2022eneralized fmorcxgcsetaty93/23/2023Laceration of heart with penetration of heart chambers 07/08/2022Localized edema07/08/2022Meniere's aiyvhkt0107/08/2022Mucopurulent chronic /23/2023Otitis ssrqkhy7007/08/2022erennial allergic rhinitis 07/08/2022haryngeal mass07/08/2022rimary cdpxrgui74/23/2023rimary osteoarthritis, right putswaji02/23/2023ure hczinfeumrrltoqbdftf80/23/2023 Crdwicgsgv30/23/2023S/P coronary artery stent ibpumcsiv28/23/2023Schatzki's ring 07/08/2022Seizure ximacczv29/23/2023Small airways iyvvxwb1607/08/2022Spondylosis of cervical region without myelopathy or gdyagbqflbfjh41/23/2023Steatosis of liver07/08/2022Thoracic aortic aneurysm without porbegp2707/08/2022Vasomotor nzaqkhgg89/23/2023Venous stasis dermatitis of both lower owtomxllaop09/23/2023 Tonic-clonic ruxgcnna63/01/2023Split urinary bloxvk0706/16/20224628Dkmmcwim39/01/2023 Myocardial vescdssonv11/01/2023Incomplete bladder /01/2023Hemorrhoids 06/16/2022Heart ennshv4506/16/20229922Mrfwgpffprjoxg08/01/2023hronic cholecystitis 06/16/2022lcohol bozcigntpj51/01/2023ctinic sbnazuqvh05/01/2023Poor diet 09/27/2019Late effect of internal injury to chest09/23/2019Terminal esophageal web ([facility])02/04/2019Status post percutaneous transluminal coronary eklymlbefqo49/13/2019Lower urinary tract symptoms due to benign prostatic vjgyyunrzwy13/30/2018Pharyngeal rgyztyn7308/07/2016Abnormal tomography of chest 06/18/2016Venous insufficiency, uhymskvkqq00/23/6154Sxufdjbwnak56/02/2017 Jxsslyhvdeyibg62/02/2017Chronic obstructive pulmonary hpquqpj4203/20/2016Allergy to soap104/07/2015 Resolved Problems ProblemNoted DateDiagnosed DateResolved DateEnlarged prostate without lower urinary tract symptoms (luts)/7971Wecihwee51 Encounters DateTypeDepartmentCare FicoBkfmzxmgdkr15/08/2025Refill [address] [place] [phone] Celeste Jenkins MA Primary tgyuqvqk84/21/2025 11:15 AM ESTOffice Visit [facility] [address] [facility] [address] [place] [phone] Nolan Bautista MD Steatosis of liver (Primary Dx); Diastolic heart failure, stage B (HCC); Stage 3a chronic kidney disease (CMS-HCC); Pure hypercholesterolemia; Idiopathic hypereosinophilic syndrome; Mild intermittent asthma without complication (HCC); Perennial allergic rhinitis; Meniere's disease of both ears5Bamboo flowsheet [facility] [address] [facility] [address] [place] [phone] Nolan Bautista MD 01/06/20257744Bmohkl18/06/2025Refill [facility] [address] [place] [address] Celeste Jenkins MA Primary lxllmegr26/30/2025Patient Outreach [facility] [address] [place] [address] Twyla Donahue LPN from Last 3 Months Immunizations ImmunizationAdministration DatesNext DueInfluenza, High Dose Seasonal, Preservative Free01/28/2024,11/21/2022,12/23/2021,12/05/2020Influenza, High-dose Seasonal, Quadrivalent, Preservative Free01/06/2019,01/21/2018Influenza, injectable, quadrivalent, preservative free11/25/2016,12/31/2015,01/24/2014 Influenza, seasonal, intradermal, preservative free01/07/2015,02/11/2013Moderna SARS-CoV-2 50mcg/0.5mL Gdvhddk21/21/2022Pneumococcal Conjugate PCV 13004/06/2015 Pneumococcal Polysaccharide AZCD926703/01/2015,08/16/2006,03/19/2006Pneumococcal, Oghchiknpoh72/01/4857BOYI-FKC-3 (COVID-19) vaccine, mRNA, spike protein, LNP, PF, 50 mcg/0.5 mL01/28/20244708LHHI-GNR-4 (COVID-19) vaccine, mRNA, spike protein, LNP, bivalent, PF02/05/2022Td (adult), pkeviophhco42/04/9572Whex20/23/2021, 07/17/2009Zoster, Snqdqtmibvz52/05/2019 Family History Medical HistoryRelationNameCommentsCancerFatherHeart diseaseMotherHypertension MotherColon cancerSiblingRelationNameStatusCommentsFatherDeceasedMotherDeceased Sibling Social History Tobacco UseTypesPacks/DayYears UsedDateSmoking Tobacco: NeverSmokeless Tobacco: Never Tobacco Cessation:Counseling Given: Not Answered Alcohol UseStandard Drinks/WeekCommentsNever0 (1 standard drink = 0.6 oz pure alcohol)Caffeine type: qnceskF3066 Health LiteracyAnswerDate RecordedHow often do you need to have someone help you when you read instructions, pamphlets, or other written material from your doctor or pharmacy?Cvewwr8111/27/2023Humiliation, Afraid, Rape, and Kick questionnaireAnswerDate RecordedWithin the last year, have you been afraid of your partner or ex-partner?No02/03/2023Within the last year, have you been humiliated or emotionally abused in other ways by your partner or ex-partner?No02/03/2023Within the last year, have you been kicked, hit, slapped, or otherwise physically hurt by your partner or ex-partner?No 02/03/2023Within the last year, have you been raped or forced to have any kind of sexual activity by your partner or ex-partner?No02/03/2023Social Connection and Isolation PanelAnswerDate RecordedIn a typical week, how many times do you talk on the phone with family, friends, or neighbors?Never02/03/2023How often do you get together with friends or relatives?Twice a week02/03/2023How often do you attend lutheran or mosque services?1 to 4 times per year02/03/2023o you belong to any clubs or organizations such as lutheran groups, unions, fraternal or athletic groups, or school groups?No02/03/2023How often do you attend meetings of the clubs or organizations you belong to?Never02/03/2023re you , , , , never , or living with a partner? 02/03/2023UDIT-CAnswerDate RecordedQ1: How often do you have a drink containing alcohol?Never02/03/2023Q2: How many drinks containing alcohol do you have on a typical day when you are drinking?Patient does not drink02/03/2023Q3: How often do you have six or more drinks on one occasion?Never02/03/2023Overall Financial Resource Strain (CARDIA)AnswerDate RecordedHow hard is it for you to pay for the very basics like food, housing, medical care, and heating?Not hard at all 02/03/2023HQ-2AnswerDate RecordedPatient Health Questionnaire-2 Score0 01/06/2025[facility] [facility] Occupational Health - Occupational Stress QuestionnaireAnswerDate RecordedDo you feel stress - tense, restless, nervous, or anxious, or unable to sleep at night because yourmind is troubled all the time - these days?Only a qmjmax4002/03/2023Exercise Vital SignAnswerDate Recorded On average, how many days per week do you engage in moderate to strenuous exercise (like a brisk walk)?0 days02/03/2023On average, how many minutes do you engage in exercise at this level?0 min02/03/2023Hunger Vital SignAnswerDate RecordedWithin the past 12 months, you worried that your food would run out before you got the money to buymore.Never true02/03/2023Within the past 12 months, the food you bought just didn't last and you didn't have money to get more.Never true02/03/2023RAPARE - TransportationAnswerDate RecordedIn the past 12 months, has lack of transportation kept you from medical appointments or from getting medications?No02/03/2023In the past 12 months, has lack of transportation kept you from meetings, work, or from getting things needed for daily living?No02/03/2023Housing Stability Vital SignAnswerDate RecordedIn the last 12 months, was there a time when you were not able to pay the mortgage or rent on time?No02/03/2023In the last 12 months, how many places have you lived?1 02/03/2023In the last 12 months, was there a time when you did not have a steady place to sleep or slept in ashelter (including now)?No02/03/2023Sex and Gender InformationValueDate RecordedSex Assigned at BirthNot on fileLegal SexMale 04/30/2022 6:55 PM EDTGender IdentityNot on fileSexual OrientationNot on file Last Filed Vital Signs Vital SignReadingTime TakenCommentsBlood Oruiqhll434/6801/06/2025 11:16 AM EST Lggwz218001/06/2025 11:16 AM VDJHvkccxkxypj43.3 ??C (97.4 ??F)11/25/2023 11:04 AM EDTRespiratory Hvpv0292 3:24 PM EDTOxygen Vbosjmrnnq02%01/06/2025 11:16 AM ESTInhaled Oxygen Concentration--Xelmlk08.5 kg (204 lb)01/06/2025 11:16 AM HWFLgqcqs259.5 cm (6' 3 )01/06/2025 11:16 AM ESTBody Mass Index25. 11:16 AM EST Plan of Treatment DateTypeDepartmentCare Team (Latest Contact Info)Fhysmdevmbe69/31/2026 1:05 PM EDTOffice Visit [facility] [address] [place] [phone] Aditi Torres MD [address] [place] [address] Health MaintenanceDue DateLast DoneCommentsPneumococcal Vaccine: 65+ Years Pffrzkjaa82/14/2016, 04/06/2015, 11/16/2008, Additional history existsInfluenza KeceddcRsswqklqd78/09/2025, 01/28/2024, 11/21/2022, Additional history exists Insurance * Guarantor: Cesar Rasmussen [facility] TypeRelation to PatientDate of BirthPhone Billing AddressPersonal/QjswtiGgzj74/08/1936 [facility] [address] [address] Care Teams Team MemberRelationshipSpecialtyStart DateEnd Date Nolan Bautista MD [address] [place] [address] [facility] - [facility]22 Nolan Bautista MD [address] [place] [address] PCP - [facility]07/10/22
--- OUTSIDE RECORDS SUMMARY | 2025-02-11 20:43 | XMS_ITS | Clinical Summary ---
Author Organization [facility] Address [address] [place], [place] [address] Care Team Providers Care Superintendent Institution Name Role Phone Michele SHELBY MD, Nolan Zuluaga Primary Care Provider [phone] Allergies Active AllergyReactionsCriticalityNoted DateCommentsAlbuterolOther: See Comments 09/29/2016 migraines IjruengdxTxcbxypafiw32/14/2017Oxycodone-AcetaminophenMental Status Change 09/29/2016TramadolMental Status Ooovqs0409/29/2016 Medications MedicationSigDispense QuantityRefillsLast FilledStart DateEnd DateStatus tamsulosin ER (FLOMAX) 0.4 mg cp24 Take 0.4 mg by mouth.Active furosemide (LASIX) 40 mg tablet Take 40 mg by mouth twice daily.Active potassium chloride 20 mEq/50 mL IVPB Inject 20 mEq intravenously one time only.Active levETIRAcetam (KEPPRA) 500 mg tablet Take 500 mg by mouth twice daily.Active Omeprazole (PRILOSEC) 40 mg capsule Take 40 mg by mouth once daily.Active aspirin (ASPIRIN CHILDRENS) 81 mg chewable tablet Take 81 mg by mouth once daily.Active VIT B COMPLEX 100 NO.2/HERBS (VITAMIN B COMPLEX 100 2-HERBS ORAL) Take by mouth.Active Ascorbic Acid (VITAMIN C) 1,000 mg tablet Take 1,000 mg by mouth once daily.Active Multivitamin capsule Take 1 capsule by mouth once daily.Active zolpidem (AMBIEN) 10 mg tab Take by mouth at bedtime as needed.Active Social History Tobacco UseTypesPacks/DayYears UsedDateSmoking Tobacco: Never AssessedSex and Gender InformationValueDate RecordedSex Assigned at BirthNot on fileLegal Sex Male08/13/2016 11:31 AM EDTGender IdentityNot on fileSexual OrientationNot on file Last Filed Vital Signs Vital SignReadingTime TakenCommentsBlood Dfbayawb943/9109/29/2016 1:24 PM EDT Wjitq091009/29/2016 1:24 PM EDTTemperature--Respiratory Rate--Oxygen Jtmadnalug41% 09/29/2016 1:24 PM EDTInhaled Oxygen Concentration--Weight--Height--Body Mass Index-- Plan of Treatment Health MaintenanceDue DateLast DoneCommentsAnxiety Anyydaouj08/08/1956Depression Solxqqkqt03/08/1956DTaP,Tdap,Td Vaccine (1 - Tdap)1956Diabetes Screening 1982Pneumococcal Vaccine: 50+ (1 of 1 - PCV)05/25/1987Shingrix Vaccine (1 of 2)05/25/1987RSV Vaccine (1 - 1-dose 75+ series)2012dvance Directive Qsvjczoeet63/01/2025ovid-19 Vaccine (1 - 2024- season)2024Influenza Vaccine (#1)2024 Insurance * Guarantor: Cesar aRsmussenAccount TypeRelation to PatientDate of BirthPhone Billing AddressPersonal/HepgqpAlrc24/08/1936 [address] [address] Care Teams Team MemberRelationshipSpecialtyStart DateEnd Date Nolan Bautista II, MD [address] [place] [address] PCP - GeneralInternal Medicine08/13/16
--- OUTSIDE RECORDS SUMMARY | 2025-02-11 20:43 | XMS_ITS | Clinical Summary ---
Author Organization [facility] Address [address] [place] [address] Care Team Providers Care Narcotics And Vice Detective Name Role Phone Nolan Bautista MD Primary Care Provider [phone] Yessica Adair CNP Unavailable Unavailable Allergies Active AllergyReactionsCriticalityNoted DateCommentsAcetaminophenUnknown 02/01/20191952XmjjtbaijVdpph23/14/2017 migraines Codeine-Yplnnnidfct66/27/2021 Other reaction(s): RASH Ether02/11/2021 Other reaction(s): Unknown Ogzrgjjlafif24/27/2021 Other reaction(s): RASH/angioedema Fhgzqaeos31/14/2017 Other reaction(s): Intolerance Oxycodone Hcl02/11/2021 Other reaction(s): hallucinations Oxycodone-QlalbvfcluwtqYcanmbp44/14/2017 Other reaction(s): Mental Status Change PagfqjacewiwMszkplbNso50/04/2162XltyacjnagUjwzgtr30/07/2025TramadolUnknownMedium 09/29/2016 Other reaction(s): Mental Status Change, Paranoia Medications MedicationSigDispense QuantityRefillsLast FilledStart DateEnd DateStatus zolpidem (Ambien) 10 mg tablet Take 10 mg by mouth if needed at bedtime.03/05/2022ctive tamsulosin (Flomax) 0.4 mg 24 hr capsule Take 0.4 capsules by mouth 1 (one) time each day. Take two capsule by mouth once daily03/05/2022ctive potassium chloride CR (Klor-Con M20) 20 mEq ER tablet Take 20 mEq by mouth in the morning and at bedtime.Active nitroglycerin (NitrolinguaL) 400 mcg/spray spray Place under the tongue every 5 (five) minutes if needed.03/05/2022ctive montelukast (Singulair) 10 mg tablet Take 10 mg by mouth at bedtime.03/05/2022ctive cetirizine (ZyrTEC) 10 mg tablet Take 10 mg by mouth in the morning.03/05/2022ctive atorvastatin (Lipitor) 20 mg tablet Take 40 mg by mouth at bedtime.03/05/2022ctive metoprolol succinate XL (Toprol-XL) 50 mg 24 hr tablet Indications:Paroxysmal atrial fibrillation (CMS/HCC)Take 1 tablet (50 mg) by mouth in the morning for 95 doses. Do not crush or chew. Do not start before November 01, 2022. 30 tablet 11/01/2022ctive Additional Information Patient taking differently: 100 mgoral Daily,Takes 75mg in the AM, and takes 50mg in PM, Reported on 01/06/2024 ascorbic acid (Vitamin C) 1,000 mg tablet Take 1,000 mg by mouth in the morning.Active pantoprazole (ProtoNix) 40 mg EC tablet Take 1 tablet by mouth in the morning.Active furosemide (Lasix) 20 mg tablet Indications:Chronic diastolic heart failure (CMS/HCC)Take 1 tablet (20 mg) by mouth in the morning. 30 tablet 111ctive Additional Information Patient taking differently: 40 mgoral Daily, Reported on 07/15/2023 aspirin 81 mg EC tablet Take 1 tablet by mouth in the morning.Active diazePAM (Valium) 5 mg tablet Take 5 mg by mouth if needed in the morning and at bedtime for anxiety.Active Active Problems ProblemNoted DateDiagnosed DateAngio-edema05/19/2024Former rgjtcg6305/19/2024 Precordial pain12/01/2023Impaired mobility and pcdbrfbta75/14/2024rimary osteoarthritis of right knee09/07/2023bdominal pain07/15/20233228Faloup48/29/2024 Mxsikepn55/29/2024Edema of lower uovypjzqf38/29/2024Encounter for deep vein thrombosis (DVT) nwhphmuohyt21/29/7706Jkpgpkmedvqajtw79/29/2024ostoperative pain07/15/2023arcinoma of xmerhjwf63eneralized seizure History of jsccjosfricgsgf64 Overview (11/21/2022): Jan 20, 2019 Entered By: SENTHIL MELTON MD Comment: laparoscopic, 12/2018Jan 20, 2019 Entered By: SENTHIL MELTON MD Comment: laparoscopic, 12/2018 Sensorineural hearing loss (SNHL) of both earsElevated LFTs 10/27/2022bnormal finding of diagnostic xruraxk81iastolic heart failure, stage B0Edema due to odrkqbwvgzkh95/23/2023 11/21/2022eneralized srkjklhmtndxoi84Laceration of heart with penetration of heart hepqesck94haryngeal mass07/08/2022 11/21/2022rimary osteoarthritis, right hbfriwlb03S/P coronary artery stent aulddrzhn98Schatzki's ring Venous stasis dermatitis of both lower hgsggkltlgw39ctinic mnbzvhboe20/01/2023lcohol zsqitnyibk06/01/6179Ndzjjlyro80/01/2023hronic aiqdtksvgefxl19/01/2023OVID-19006/16/20224834Rfncmyufifgopp92/01/2023Heart murmur 06/16/20226167Pudyghcmqoa91/01/2023Incomplete bladder qqeyidgg29/01/2023Myocardial rbonmhknds53/01/0103Burtnawd97/01/2023Split urinary itgfbp8706/16/2022Tonic-clonic ezstfovm04/01/2023ifficulty ogxuovm6509/28/2019Poor diet09/27/2019Cardiac rvrgogdeh59/07/2020Late effect of internal injury to chest09/23/2019Basal cell carcinoma of face05/05/2019Terminal esophageal web02/04/2019Status post percutaneous transluminal coronary xwplgejpywv36/13/2019Vasomotor rhinitis 12/20/2018Chronic cough12/16/20184065Bqrmplmzhv31/15/2019Abnormal findings on diagnostic imaging of liver and biliary tract11/10/2018Fatty liver11/10/2018 Thoracic aortic aneurysm without cwjdtdv3011/07/2018Paroxysmal atrial fibrillation 10/11/2018Pure fvbjaaddmtbaxapwrvor50/26/2019Otitis igcyjvp5008/03/2018Arrhythmia 04/21/2018Exacerbation of yklvve5702/01/2018Lower urinary tract symptoms due to benign prostatic nzxntqfzfip11/30/2018Hypertensive heart disease with congestive heart mdmgjbs3304/14/2017Cervical spondylosis without wveiillhjp69/25/2018 Pharyngeal yldsqwt9508/07/20163414Pszwwlkgepew58/22/2017Abnormal tomography of chest 06/18/2016Localized edema05/08/2016Peripheral venous jvktazponbyyr53/23/2017 Mucopurulent chronic /14/2017Benign prostatic arrkzidzhcb50/02/2017 Chronic obstructive pulmonary zimibmx9803/20/20167424Sujhuyxrokhdxv92/02/2017 Njtowsgpvkt22/02/2017Ventricular premature beats03/20/2016Allergic rhinitis 03/04/2016Seizure /17/2017Allergy to soap104/07/2015Disorder of lung 02/05/2016Atherosclerosis of coronary artery without angina exgbjpfi20/23/2015 Enlarged fdntccyq56/23/2015Menieres mbyqzlc6901/08/2015Primary rrcjbkzo04/23/2015 Immunizations ImmunizationAdministration DatesNext DueInfluenza Whole12/21/2006,12/21/2006 Influenza, High-dose Seasonal, Quadrivalent, Preservative Free01/06/2019, 01/21/2018Influenza, Gqehejrencj02/07/2022,12/05/2020,01/06/2019,01/21/2018 Influenza, injectable, quadrivalent, preservative free11/25/2016,12/31/2015, 01/22/2015,01/24/2014Influenza, seasonal,quadrivalent, preservative free 01/07/2015,02/11/2013Moderna 12 YR UP Vaccine BiValent Mqqafrq5502/05/2022Moderna SARS-CoV-2 Hczwdznixnf09/27/2021,04/05/2020,1Pneumococcal Conjugate PCV 13004/06/2015Pneumococcal Polysaccharide MWM426403/01/2015,03/19/2006Tdap04/10/2020 Family History Medical HistoryRelationNameCommentsCancerFatherHeart attackMotherCancerSister RelationNameStatusCommentsFatherDeceasedMotherDeceasedSisterDeceased Social History Tobacco UseTypesPacks/DayYears UsedDateSmoking Tobacco: FormerCigarettes Smokeless Tobacco: Never Tobacco Cessation:Counseling Given: Not Answered Alcohol UseStandard Drinks/WeekCommentsNot Currently0 (1 standard drink = 0.6 oz pure alcohol)Humiliation, Afraid, Rape, and Kick questionnaireAnswerDate RecordedWithin the last year, have you been afraid of your partner or ex-partner?No10/27/2022Emotionally AbusedNot on file10/27/2022hysically Abused Not on 10/27/2022Sexually AbusedNot on file10/27/2022Overall Financial Resource Strain (CARDIA)AnswerDate RecordedHow hard is it for you to pay for the very basics like food, housing, medical care, and heating?Not hard at all 10/27/2022UT Safety & EnvironmentAnswerDate RecordedWithin the last year, have you been afraid of your partner or ex-partner?No10/27/2022Emotionally AbusedNot on file10/27/2022hysically AbusedNot on file10/27/2022Sexually AbusedNot on file10/27/2022hysically or Sexually AbusedNot on file10/27/2022Transportation AnswerDate RecordedIn the past 12 months, has lack of transportation kept you from medical appointments or from getting medications?No10/27/2022Lack of Transportation (Non-Medical)Not on file10/27/2022Housing Stability Vital Sign AnswerDate RecordedUnable to Pay for Housing in the Last YearNot on file 10/27/2022Number of Places Lived in the Last YearNot on file10/27/2022In the last 12 months, was there a time when you did not have a steady place to sleep or slept in ashelter (including now)?No10/27/2022Hunger Vital SignAnswerDate RecordedWithin the past 12 months, you worried that your food would run out before you got the money to buymore.Never true10/27/2022Ran Out of Food in the Last YearNot on file10/27/2022Sex and Gender InformationValueDate RecordedSex Assigned at PsziqIpec06/12/2023 12:16 PM EDTLegal GmjUpnp5408/14/2021 10:10 PM EDT Gender VumkjhnwPjys10/12/2023 12:16 PM EDTSexual OrientationHeterosexual or Prrwztoe27/12/2023 12:16 PM EDT Last Filed Vital Signs Vital SignReadingTime TakenCommentsBlood Rszdaauc117/7204 3:00 PM EDT Cxhsf502905/23/2024 3:00 PM DBUUbfldgvrwsg22.6 ??C (97.9 ??F)10/31/2022 12:40 PM EDTRespiratory Grlo9455 12:40 PM EDTOxygen Byhuhfdcrp80%05/23/2024 3:00 PM EDTInhaled Oxygen Concentration--Kqiijj19.2 kg (201 lb)05/23/2024 3:00 PM EDT Ojnhwn850.5 cm (6' 3 )05/23/2024 3:00 PM EDTBody Mass Index25.12005/23/2024 3:00 PM EDT Plan of Treatment Health MaintenanceDue DateLast DoneCommentsMedicare Annual Wellness (AWV) 1937Depression Ixsfcxjbu99[birth year]08/1948Fall Risk Gksmseuim70/08/2003Zoster Vaccines (2 of 2)COVID-19 Vaccine ( season) , 01/17/2023, 02/05/2022, Additional history existsInfluenza Vaccine (#1)512/01/2024, 11/21/2022, 12/23/2021, Additional history existsAdult Kplaqdj19/, 07/20/2009, 07/17/2009Pneumococcal Vaccine: 50+ JsqvzUevvnvhqs76/14/2016, 04/06/2015, 11/16/2008, Additional history existsHIB VaccinesAged OutNo longer eligible based on patient's age to complete this topicHPV VaccinesAged OutNo longer eligible based on patient's age to complete this topicIPV VaccinesAged OutNo longer eligible based on patient's age to complete this topicMeningococcal B VaccineAged OutNo longer eligible based on patient's age to complete this topicMeningococcal VaccineAged OutNo longer eligible based on patient's age to complete this topicRotavirus Vaccines Aged OutNo longer eligible based on patient's age to complete this topic Medical Devices ImplantedTypeAreaManufacturerDevice IdentifierShelf Expiration DateModel / Serial / LotSynergy StentHeart Insurance * Guarantor: Cesar Rasmussen [facility] Hospitalount TypeRelation to PatientDate of BirthPhone Billing AddressPersonal/LolnfnHrjz25/08/1936 [address] [id number] Advance Directives * Full Code (Latest Code Status on File) Date ActivatedDate InactivatedComments10/27/2022 3:48 PM10/31/2022 8:26 PM Care Teams Team MemberRelationshipSpecialtyStart DateEnd Date Nolan Bautista MD [address] [address] PCP - General06/12/22 Yessica Adair CNP [address] [address] Nurse PractitionerHospitalpinon health center10/30/22
--- NOTE | 2025-02-11 20:48 | ED.CHESTPAI1 ---
HPI - Chest Pain General Chief Complaint: Chest Pain Stated Complaint: CHEST PAIN Time Seen by Provider: 02/11/25 20:30 Source: patient Mode of arrival: walk-in History of Present Illness HPI narrative: cc - chest pain Around 6pm the patient developed pain in the upper chest. 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 His primary care physician is Dr. Oglesby. His electrotype servicer is Dr. Ahumada. The pain went away and then returned around 730-740 5 PM. He once again took a sublingual nitro but then asked his to drive him to the ED for evaluation. At this time he is chest pain-free. No recent fall or injury to the chest or torso. No cough or cold symptoms. No fever or chills. No recent shortness of breath, exertional dyspnea, leg swelling or other complaints. Related Data Home Medications ?Medication ?Instructions ?Recorded ?Confirmed atorvastatin 20 mg tablet 40 mg PO DAILY 10/23/22 02/11/25 cetirizine 10 mg tablet 10 mg PO DAILY 10/23/22 02/11/25 potassium chloride 10 mEq 20 meq PO BID 10/23/22 02/11/25 tablet,extended release acetaminophen 325 mg tablet (Aphen) 650 mg PO Q6H PRN fever or pain 10/24/22 02/11/25 diazepam 5 mg tablet 5 mg PO Q8H PRN anxiety 10/24/22 02/11/25 tamsulosin 0.4 mg capsule 0.4 mg PO Q24H 10/24/22 02/11/25 zolpidem 10 mg tablet 10 mg PO BEDTIME PRN sleep 10/24/22 02/11/25 ascorbic acid (vitamin C) 1,000 mg 1 g PO DAILY 11/12/22 02/11/25 tablet (C-1000) montelukast 10 mg tablet 10 mg PO QPM 11/12/22 02/11/25 (Singulair) pantoprazole 40 mg tablet,delayed 40 mg PO QAM 11/12/22 02/11/25 release (Protonix) vitamin B complex See Rx Instructions .Route .COMPLEX 11/12/22 02/11/25 furosemide 40 mg tablet 40 mg PO DAILY 11/13/23 02/11/25 levalbuterol HCl 1.25 mg/3 mL 1.25 mg inhalation Q8H PRN 11/25/23 02/11/25 solution for nebulization shortness of breath or wheezing Previous Rx's ?Medication ?Instructions ?Recorded metoprolol succinate 50 mg 100 mg (2 x 50 mg) PO DAILY #0 tabs 11/17/22 tablet,extended release 24 hr nitroglycerin 0.4 mg sublingual 0.4 mg sublingual Q5M PRN chest 11/14/23 tablet pain #10 tabs Allergies Allergy/AdvReac Type Severity Reaction Status Date / Time lidocaine AdvReac Unknown Rash Verified 02/11/25 20:15 tramadol (From Ultram) AdvReac Unknown Migraine Verified 02/11/25 20:15 novacaine AdvReac Unknown Rash Uncoded 02/11/25 20:15 [facility] Medical History Surgical History Family History Mother Family history of CHF (congestive heart failure) Family history of hypertension Family history of myocardial infarction Father Family history of cancer Sister Family history of cancer Social History Within the past year, how often did you have a drink containing alcohol: never Score interpretation: A score less than 4 is consistent with normal alcohol consumption. Smoking status: Former smoker Non-prescribed substance use: denies use Previous occupational history: retired Highest level of school completed/degree received: high school graduate Are you now , , , , never or living with a partner: In a typical week, how many times do you talk on the telephone with family, friends, or neighbors: 3 or more times per week How often do you get together with friends or relatives: 3 or more times per week How often do you attend yazidi or buddhist services: 4 or more times per year Little interest or pleasure in doing things: not at all Feeling down, depressed, or hopeless: not at all Feel stressed/tense/nervous/anxious/difficulty sleeping: not at all Do you think of yourself as: straight/heterosexual Gender Identity: male Exam Narrative Exam Narrative: Nurses notes and vital signs reviewed and patient is not hypoxic. afebrile General: Well-appearing and in no apparent distress. Skin: Warm, dry, no pallor noted. Eye: Pupils are equal, round and EOMI. No scleral icterus. Ears, Nose, Mouth, and Throat: Oral mucosa is moist Cardiovascular: Regular Rate and Rhythm without murmur, gallop or rub. Respiratory: No accessory muscle use or respiratory distress. Lungs are clear to auscultation, no wheezing, rales or rhonchi Chest Wall: no tenderness, crepitus or subcutaneous emphysema Musculoskeletal: normal ROM, no calf or popliteal tenderness, no lower extremity edema/swelling GI: Abdomen is soft, non-distended. Normal bowel sounds. No masses appreciated. No tenderness to palpation. No rebound, guarding, or rigidity noted. Neurological: A&O x4. No cranial nerve dysfunction observed. No truncal ataxia. Moves all extremities. Sensation intact. Psychiatric: Cooperative and interactive. Normal mood and affect. Constitutional Vital Signs, click to edit/add: Last Vital Signs Temp 97.6 F 02/11/25 20:19 Pulse 59 L 02/11/25 21:30 Resp 13 02/11/25 21:30 BP 122/63 02/11/25 21:30 Pulse Ox 95 02/11/25 21:30 O2 Del Method Room Air 02/11/25 20:19 Course Vital Signs Vital signs: Vital Signs Pulse Rate 66 02/11/25 20:17 Respiratory Rate 16 02/11/25 20:17 Temperature 97.6 F 02/11/25 20:19 Pulse Rate 59 L 02/11/25 21:30 Respiratory Rate 13 02/11/25 21:30 Blood Pressure 122/63 02/11/25 21:30 Pulse Oximetry 95 02/11/25 21:30 Oxygen Delivery Method Room Air 02/11/25 20:19 MDM - Chest Pain MDM Narrative Medical decision making narrative: Patient was placed on adjunct professor and EKG obtained. Blood drawn and sent for evaluation. Portable chest x-ray obtained. Unremarkable CBC except for borderline anemia with hemoglobin 13.8. Remainder of workup was negative including troponin x 2. Chest x-ray was negative. Patient was informed of results and given reassurance. He was discharged home with recommendation to return to the ED if he were to develop any worsening symptoms or new concerning symptoms -otherwise he can follow-up with his primary care provider as needed. Lab Data Attestation: I reviewed the patient's lab results. Labs: Lab Results 02/11/25 02/11/25 Range/Units 20:27 21:35 WBC 7.0 (4.0-11.0) 10^3/uL RBC 4.51 L (4.70-6.10) 10^6/uL Hgb 13.8 L (14.0-18.0) g/dL Hct 41.6 L (42.0-54.0) % MCV 92.2 (80.0-94.0) fL MCH 30.6 (25.9-34.0) pg MCHC 33.2 (29.9-35.2) g/dL RDW 13.2 (11.0-15.0) % Plt Count 222 (150-450) 10^3/uL MPV 10.8 (9.5-13.5) fL Neut % (Auto) 51.8 (43.0-75.0) % Lymph % (Auto) 33.4 (20.5-60.0) % Mercer % (Auto) 9.5 (1.7-12.0) % Eos % (Auto) 4.6 (0.9-7.0) % Baso % (Auto) 0.4 (0.2-2.0) % Neut # (Auto) 3.6 (1.4-6.5) 10^3/uL Lymph # (Auto) 2.4 (1.2-3.8) 10^3/uL Mercer # (Auto) 0.7 (0.3-0.8) 10^3/uL Eos # (Auto) 0.3 (0.0-0.7) 10^3/uL Baso # (Auto) 0.0 (0.0-0.1) 10^3/uL Abs Immat Gran (auto) 0.02 (0.00-0.03) 10^3/uL Imm/Tot Granulo (auto) 0.3 (0.0-0.5) % Sodium 138 (136-145) mmol/L Potassium 4.1 (3.5-5.1) mmol/L Chloride 104 (98-107) mmol/L Carbon Dioxide 28.6 (21.0-32.0) mmol/L Anion Gap 9.5 BUN 14.0 (7.0-18.0) mg/dL Creatinine 1.44 H (0.70-1.30) mg/dL Est GFR ( Amer) 56 L (>=60 mL/min/1.73m^2) Est GFR (Non-Af Amer) 46 L (>=60 mL/min/1.73m^2) BUN/Creatinine Ratio 9.7 Glucose 96 (74-106) mg/dL Calcium 9.1 (8.5-10.1) mg/dL Troponin I High Sens 4.8 5.3 (4.0-76.1) pg/mL NT-Pro-B Natriuret Pep 234.0 (<=1800.0) pg/mL Imaging Data Chest x-ray: Attestation: I personally reviewed and interpreted this imaging study as follows: My impression: nad ECG Data Attestation: I personally reviewed and interpreted this ECG as follows: Interpretation: EKG interpretation:Emergency Department physician interpretation. Irregular rhythm at 62bpm with several long pauses. Left axis deviation. RSR in lead V1/V2 consistent with right ventricular conduction delay. Prolonged MD interval. No ST elevation or deep ischemic changes. Heart Score History: Slightly/Non-Suspicious ECG: NS Repolarization Age: >65 years Risk Factors: 1 or 2 Risk Factors Troponin: <Normal Limit Total Heart Score Recommendations & Risks:: 4 Discharge Plan Discharge Chief Complaint: Chest Pain Clinical Impression: Chest pain Patient Disposition: Home, Self-Care Time of Disposition Decision: 22:14 Prescriptions / Home Meds: No Action tamsulosin 0.4 mg capsule 0.4 mg PO Q24H acetaminophen [Aphen] 325 mg tablet 650 mg PO Q6H PRN (Reason: fever or pain) zolpidem 10 mg tablet 10 mg PO BEDTIME PRN (Reason: sleep) diazepam 5 mg tablet 5 mg PO Q8H PRN (Reason: anxiety) Patient Comments: last filled 05-26-22; 180 tablets for a 90 day supply pantoprazole [Protonix] 40 mg tablet,delayed release (DR/EC) 40 mg PO QAM montelukast [Singulair] 10 mg tablet 10 mg PO QPM vitamin B complex [Vitamin B Complex-100] See Rx Instructions .ROUTE .COMPLEX Rx Instructions: 1 tablet; Take one daily ascorbic acid (vitamin C) [C-1000] 1,000 mg tablet 1 g PO DAILY metoprolol succinate 50 mg tablet extended release 24 hr 100 mg PO DAILY Qty: 0 0RF furosemide 40 mg tablet 40 mg PO DAILY nitroglycerin 0.4 mg tablet, sublingual 0.4 mg sublingual Q5M PRN (Reason: chest pain) Qty: 10 0RF Rx Instructions: do not exceed 3 doses per episode atorvastatin 20 mg tablet 40 mg PO DAILY cetirizine 10 mg tablet 10 mg PO DAILY potassium chloride 10 mEq tablet extended release 20 meq PO BID Patient Comments: Filled 540 tablets for a 90 day supply on 10-13-22 levalbuterol HCl 1.25 mg/3 mL solution for nebulization 1.25 mg inhalation Q8H PRN (Reason: shortness of breath or wheezing) Print Language: Hebrew Instructions: Chest Pain (ED) Referrals: DARREN BARAJAS [Primary Care Provider, Internal Medicine] - 1 week
[2025-02-11 21:00] VITALS: BP 118/62; PULSE 63; O2SAT 96
[2025-02-11 21:00] LABS: Anion Gap 9.5; Blood Urea Nitrogen 14.0 mg/dL (7.0-18.0); Calcium 9.1 mg/dL (8.5-10.1); Carbon Dioxide 28.6 mmol/L (21.0-32.0); Chloride 104 mmol/L (98-107); Estimated GFR (African America 56 (>=60 mL/min/1.73m^2); Estimated GFR (Non-African Ame 46 (>=60 mL/min/1.73m^2); Glucose 96 mg/dL (74-106); NT Pro B Type Natriuretic Pept 234.0 pg/mL (<=1800.0); Potassium 4.1 mmol/L (3.5-5.1); Sodium 138 mmol/L (136-145)
[2025-02-11 21:30] VITALS: BP 122/63; PULSE 59; O2SAT 95
== END 2025-02-11 22:28 | disposition home or self-care (01) ==
PROVIDERS: Emergency Provider Emergency Medicine; PCP Internal Medicine
DX: R07.89 Other chest pain (principal); R94.31 Abnormal electrocardiogram [ECG] [EKG]
CPT/HCPCS: 36415; 71045; 80048; 83880; 84484; 85025; 93005; 99285